=== PATIENT | female | born 1935 ===

== ENCOUNTER 2016-11-17 20:22 | Inpatient (IN) | payer MEDICARE, OTHER ==
[2016-11-17 20:23] VITALS: BMI 23.8
[2016-11-17] MEDS ORDERED: Albuterol-Ipratrop 3 mg / 0.5 (3 ml) UD INH STA (20:51)
[2016-11-17] MEDS ORDERED: Nitroglycerin 2% 1GM UD TOP STA (20:51)
[2016-11-17] MEDS ORDERED: Nitroglycerin 2% 1GM UD ONE ×2 (21:30→23:01)
[2016-11-17] MEDS ORDERED: Albuterol-Ipratrop 3 mg / 0.5 (3 ml) UD ONE (21:31)
--- NOTE | 2016-11-17 21:44 | ED PDOC ---
HPI: SOB/CHF/COPD Time Seen by Provider: 11/17/16 20:49 Chief Complaint (Nursing): Shortness Of Breath Chief Complaint (Provider): Shortness of Breath History Per: Patient History/Exam Limitations: no limitations Onset/Duration Of Symptoms: Days (x3 weeks), Worse Since (onset) Current Symptoms Are (Timing): Still Present Exacerbating Factor(s): Exertion, Laying Flat Associated Symptoms: Ankle/Leg Swelling (b/l), Other (PND; no nausea, vomiting, diarrhea). denies: Fever Additional Complaint(s): Sadie De Jesus is an 81 year old female, with a past medical history inclusive of CAD (s/p CABG), HTN, hypercholesterolemia, CHF, COPD, pneumonia, peripheral edema and type II diabetes, who presents to the ED on 11/17/16, as per the recommendation of her PMD Dr. Lawrence, for the evaluation of worsening shortness of breath that she has experienced over the past 3 weeks. Associated orthopnea, dyspnea on exertion, PND and a nonproductive cough also reported, in addition to some b/l lower extremity swelling. Denies fever, nausea, vomiting or diarrhea. Of note, patient has been medicating with Lasix (BID) and antibiotics under the direction of her PMD without improvement. PMD: [place] Past Medical History Reviewed: Historical Data, Nursing Documentation, Vital Signs Vital Signs: Last Vital Signs Temp 97.9 F 11/18/16 00:46 Pulse 69 11/18/16 00:46 Resp 16 11/18/16 00:46 BP 143/73 11/18/16 00:46 Pulse Ox 91 L 11/18/16 00:55 - Medical History PMH: Anemia, Arthritis, Asthma, Atrial Fibrillation, Bronchitis, CAD (valvular heart disease), Cardia Arrhythmia, CHF, COPD, CVA (recurrent), Dementia, Diabetes (type II), HTN, Hypercholesterolemia, Hyperlipidemia, Parkinson's Disease, Peripheral Edema, Pneumonia, TIA Denies: HIV, Hypothyroidism, Chronic Kidney Disease, Rheumatoid Arthritis - Surgical History Surgical History: Appendectomy, CABG, Carotid Endarterectomy, Cholecystectomy - Family History Family History: States: Unknown Family Hx - Social History Current smoker - smoking cessation education provided: No Alcohol: None Drugs: Denies - Immunization History Hx Tetanus Toxoid Vaccination: No Hx Influenza Vaccination: No Hx Pneumococcal Vaccination: No - Home Medications Home Medications: Ambulatory Orders Medication Instructions Recorded Butalbital/Acetaminophen 1 tab PO Q6 PRN 01/09/16 [Butalbital-Acetaminophn 50-325] Clopidogrel [Plavix] 75 mg PO DAILY 01/09/16 Digoxin [Lanoxin] 0.125 mg PO DAILY 01/09/16 Ipratropium/Albuterol Sulfate 3 ml INH Q8H PRN 01/09/16 [Iprat-Albut 0.5-3(2.5) mg/3 ml] Memantine HCl [Namenda Xr] 14 mg PO DAILY 01/09/16 Omeprazole [Prilosec] 20 mg PO BID 01/09/16 Potassium Chloride [Potassium 10 ml PO DAILY 01/09/16 Chloride Oral Soln] Rivaroxaban [Xarelto] 20 mg PO DAILY 01/09/16 Rosuvastatin Calcium [Crestor] 20 mg PO DAILY 01/09/16 Valsartan [Diovan] 160 mg PO DAILY 01/09/16 Zolpidem [Ambien] 5 mg PO HS 01/09/16 metOLazone [Zaroxolyn] 2.5 mg PO DAILY 01/09/16 Ferrous Sulfate [Feosol] 325 mg PO BID 09/12/16 Fluticasone/Vilanterol [Breo 1 puff IH DAILY 09/12/16 Ellipta 200-25 Mcg INH] Linagliptin [Tradjenta] 5 mg PO DAILY 09/12/16 Multivitamin with Minerals 1 tab PO DAILY 09/12/16 [Bee-Zee] cycloSPORINE [Restasis] 1 drop EACHEYE Q12H 09/12/16 - Allergies Allergies/Adverse Reactions: Allergies Allergy/AdvReac Type Severity Reaction Status Date / Time No Known Allergies Allergy Verified 09/12/16 10:57 Review of Systems ROS Statement: Except As Marked, All Systems Reviewed And Found Negative Constitutional: Negative for: Fever Cardiovascular: Positive for: Edema (b/l LE) Respiratory: Positive for: Cough, Shortness of Breath, SOB with Exertion, Other (orthopnea, PND). Negative for: Sputum Gastrointestinal: Negative for: Nausea, Vomiting, Diarrhea Physical Exam - Reviewed Nursing Documentation Reviewed: Yes Vital Signs Reviewed: Yes - Physical Exam Appears: Positive for: Non-toxic, No Acute Distress Head Exam: Positive for: ATRAUMATIC, NORMOCEPHALIC Skin: Positive for: Normal Color, Warm, Dry Eye Exam: Positive for: Normal appearance, PERRL ENT: Positive for: Normal ENT Inspection Neck: Positive for: Painless ROM. Negative for: Normal (2+ JVD) Cardiovascular/Chest: Positive for: Regular Rate, Rhythm, Edema (2+ pitting edema within b/l LE). Negative for: Murmur Respiratory: Positive for: Crackles (b/l diffuse) Gastrointestinal/Abdominal: Positive for: Normal Exam, Soft. Negative for: Tenderness Back: Positive for: Normal Inspection Extremity: Positive for: Normal ROM Neurologic/Psych: Positive for: Alert, Oriented - Laboratory Results Result Diagrams: 11/17/16 22:55 11/17/16 22:55 - ECG O2 Sat by Pulse Oximetry: 91 - Critical Care Total Time (In Min): 30 Medical Decision Making Medical Decision Makin:49 Initial Impression: 81 year old female with acute CHF exacerbation Initial Plan: * EKG * CXR * Labs * Lactic Acid, Plasma * Troponin I * PTT * PT * Influenza A B * Blood Culture * Solu-Medrol 125mg IV * Lasix 40mg IV * Nitro 1in TOP * Duonebs 3ml INH * Peak Flow Pre/Post Treatment * Reevaluation 21:[address] Lawrence, who has requested that the patient be admitted to Telemetry as a full inpatient under his service as opposed to observation. Plan has been discussed with patient, who is in agreement. Condition fair. Chest Xray B/L PVC and CM Labs reviewed no clinically sig abnormality with exception of elevated proBNP Clinical Impression: acute CHF exacerbation Scribe Attestation: Documented by Caro Medina, acting as a scribe for Nikhil Camacho MD. Provider Scribe Attestation: All medical record entries made by the Scribe were at my direction and personally dictated by me. I have reviewed the chart and agree that the record accurately reflects my personal performance of the history, physical exam, medical decision making, and the department course for this patient. I have also personally directed, reviewed, and agree with the discharge instructions and disposition. Disposition - Clinical Impression Clinical Impression: CHF (congestive heart failure) - Patient ED Disposition Is Patient to be Admitted: Yes Discussed With DrSantos: Juan A Lawrence - Disposition Disposition Time: 21:03 Condition: FAIR - Pt Status Changed To: Hospital Disposition Of: Inpatient - Admit Certification Admit to Inpatient:: After my assessment, the patient will require hospitalization for at least two midnights. This is because of the severity of symptoms shown, intensity of services needed, and/or the medical risk in this patient being treated as an outpatient.
[2016-11-17 23:19] LABS: BASO # 0.1 K/uL (0.0-0.2); BASO % 0.6 % (0.0-2.0); EOS # 0.1 K/uL (0.0-0.7); HEMATOCRIT 28.6 % (34.0-47.0); LYMPH # 1.9 K/uL (1.0-4.3); LYMPH % 18.8 % (20.0-40.0); MEAN CELL VOLUME 91.7 fl (81.0-99.0); MEAN CORPUSCULAR HEMOGLOBIN 29.1 pg (27.0-31.0); MEAN CORPUSCULAR HGB CONC 31.7 g/dL (33.0-37.0); MEAN PLATELET VOLUME 9.5 fl (7.2-11.7); MONO # 0.6 K/uL (0.0-0.8); MONO % 6.4 % (0.0-10.0); NEUT # 7.3 K/uL (1.8-7.0); NEUT % 73.2 % (50.0-75.0); RED CELL DISTRIBUTION WIDTH 16.9 % (11.5-14.5)
[2016-11-17 23:29] LABS: ALB/GLOB RATIO 1.1 (1.0-2.1); BILIRUBIN,TOTAL 0.2 mg/dl (0.2-1.3); CALCIUM 9.6 mg/dL (8.4-10.2); POTASSIUM 3.4 MMOL/L (3.6-5.0); TOTAL PROTEIN 6.5 G/DL (6.3-8.2)
[2016-11-17 23:34] LABS: PARTIAL THROMBOPLASTIN TIME 27.2 SECONDS (23.3-32.5)
[2016-11-17 23:39] LABS: TROPONIN I 0.039 ng/mL (0.00-0.120)
[2016-11-18] MEDS ORDERED: Nitroglycerin 2% 1GM UD TOP STA (00:19)
[2016-11-18] MEDS ORDERED: Albuterol-Ipratrop 3 mg / 0.5 (3 ml) UD INH PRN (07:46)
[2016-11-18] MEDS ORDERED: Digoxin 125 mcg (0.125 mg) Tab PO SCH (09:00)
--- NOTE | 2016-11-18 09:14 | RAD ---
HISTORY: chf COMPARISON: 09/12/2016 FINDINGS: LUNGS: There is interval increase in vascular congestion from prior study with mild prominence of the interstitial markings. PLEURA: Small pleural effusions are suspected. CARDIOVASCULAR: Heart is enlarged. There is evidence of prior median sternotomy. Mild vascular congestion is noted. OSSEOUS STRUCTURES: No significant abnormalities. VISUALIZED UPPER ABDOMEN: Normal. OTHER FINDINGS: None. IMPRESSION: Cardiomegaly and mild vascular congestion/CHF. Small effusions.
[2016-11-18] MEDS: Potassium Chloride 10 mEq ER Tab PO SCH (09:32)
--- NOTE | 2016-11-18 13:44 | CP.PCM.CON ---
History of Present Illness - History of Present Illness History of Present Illness: I was asked to see patient by Dr. Lawrence. Patient is a 81 year old female with a PMH HTN, CAD s/p CABG bioprosthetic MVR, paroxysmal atrial fibrillation who presents with progressive dyspnea. The patient has had previous admissions for atrial fibrillation with rapid ventricular response, and was noted to have progressive dyspnea. She has palpitations and with rapid heart rate. The patient denies syncope. Echocardiogram from January 2016 reveals normal left ventricular function, bioprosthetic MVR. Review of Systems - Constitutional Constitutional: absent: As Per HPI, Anorexia, Chills, Daytime Sleepiness, Excessive Sweating, Fatigue, Fever, Frequent Falls, Headache, Increased Appetite , Lethargy, Malaise, Night Sweats, Snoring, Sleep Apnea, Weight Gain, Weight Loss, Weakness, Other - EENT Eyes: absent: As Per HPI, Blind Spots, Blurred Vision, Change in Vision, Decreased Night Vision, Diplopia, Discharge, Dry Eye, Exophthalmos, Floaters, Irritation, Itchy Eyes, Loss of Peripheral Vision, Pain, Photophobia, Requires Corrective Lenses, Sees Flashes, Spots in Vision, Tunnel Vision, Other Visual Disturbances, Loss of Vision, Other Ears: absent: As Per HPI, Decreased Hearing, Ear Discharge, Ear Pain, Tinnitus, Abnormal Hearing, Disequilibrium, Dizziness, Other Nose/Mouth/Throat: absent: As Per HPI, Epistaxis, Nasal Congestion, Nasal Discharge, Nasal Obstruction, Nasal Trauma, Nose Pain, Post Nasal Drip, Sinus Pain, Sinus Pressure, Bleeding Gums, Change in Voice, Dental Pain, Dry Mouth, Dysphagia, Halitosis, Hoarsness, Lip Swelling, Mouth Lesions, Mouth Pain, Odynophagia, Sore Throat, Throat Swelling, Tongue Swelling, Facial Pain, Neck Pain, Neck Mass, Other - Breasts Breasts: absent: As Per HPI, Change in Shape, Mass, Pain, Nipple Discharge, Nipple Inversion, Skin Changes, Swelling, Other - Cardiovascular Cardiovascular: Dyspnea, Palpitations - Respiratory Respiratory: Dyspnea - Gastrointestinal Gastrointestinal: absent: As Per HPI, Abdominal Pain, Belching, Bloating, Change in Bowel Habits, Change in Stool Character, Coffee Ground Emesis, Constipation, Cramping, Diarrhea, Dyspepsia, Dysphagia, Early Satiety, Excessive Flatus, Fecal Incontinence, Heartburn, Hematemesis, Hematochezia, Loose Stools, Melena, Nausea, Odynophagia, Temesmus, Vomiting, Other - Genitourinary Genitourinary: absent: As Per HPI, Change in Urinary Stream, Difficulty Urinating, Dysuria, Flank Pain, Hematuria, Pyuria, Nocturia, Urinary Incontinence, Urinary Frequency, Urinary Hesitance, Urinary Urgency, Voiding Freq/Small Amts, Freq UTI, Hx Renal/Bladder Calculi, Hx /Renal Surgery, Bladder Distension, Other - Integumentary Integumentary: absent: As Per HPI, Acne, Alopecia, Bleeding Lesions, Change in Hair, Change in Nails, Change in Pigmentation, Changing Lesions, Dry Skin, Erythema, Furuncle, Hirsutism, Lesions, New Lesions, Non-Healing Lesions, Photosensitivity, Pruritus, Rash, Skin Pain, Skin Ulcer, Sores, Striae, Swelling , Unusual Bruising, Wounds, Jaundice, Other - Neurological Neurological: absent: As Per HPI, Abnormal Gait, Abnormal Hearing, Abnormal Movements, Abnormal Speech, Behavioral Changes, Burning Sensations, Confusion, Convulsions, Disequilibrium, Dizziness, Numbness, Focal Weakness, Frequent Falls , Headaches, Lack of Coordination, Loss of Vision, Memory Loss, Paresthesias, Radicular Pain, Restless Legs, Sensory Deficit, Syncope, Tingling, Tremor, Vertigo, Weakness, Other Visual Disturbances, Other - Psychiatric Psychiatric: absent: As Per HPI, Abnormal Sleep Pattern, Anhedonia, Anxiety, Auditory Hallucinations, Behavioral Changes, Change in Appetite, Change in Libido, Confusion, Depression, Difficulty Concentrating, Hallucinations, Homicidal Ideation, Hopelessness, Irritability, Memory Loss, Mood Swings, Panic Attacks, Paranoia, Suicidal Ideation, Visual Hallucinations, Tactile Hallucinations, Other - Endocrine Endocrine: absent: As Per HPI, Change in Body Appearance, Change in Libido, Cold Intolorance, Deepening of Voice, Excessive Sweating, Fatigue, Flushing, Heat Intolorance, Increase in Ring/Shoe/Hat Size, Palpitations, Polydipsia, Polyphagia, Polyuria, Other Past Patient History - Infectious Disease Hx of Infectious Diseases: None - Tetanus Immunizations Tetanus Immunization: Unknown - Past Medical History & Family History Past Medical History?: Yes - Past Social History Smoking Status: Former Smoker - CARDIAC Hx Atrial Fibrillation: Yes Hx Cardia Arrhythmia: Yes Hx Congestive Heart Failure: Yes Hx Hypercholesterolemia: Yes Hx Hypertension: Yes Hx Peripheral Edema: Yes - PULMONARY Hx Asthma: Yes Hx Bronchitis: Yes Hx Chronic Obstructive Pulmonary Disease (COPD): Yes Hx Pneumonia: Yes - NEUROLOGICAL Hx Dementia: Yes Hx Parkinson's Disease: Yes Hx Transient Ischemic Attacks (TIA): Yes - HEENT Hx HEENT Problems: No - RENAL Hx Chronic Kidney Disease: No - ENDOCRINE/METABOLIC Hx Hypothyroidism: No - HEMATOLOGICAL/ONCOLOGICAL Hx Anemia: Yes Hx Human Immunodeficiency Virus (HIV): No - INTEGUMENTARY Hx Dermatological Problems: No - MUSCULOSKELETAL/RHEUMATOLOGICAL Hx Falls: Yes - GASTROINTESTINAL Hx Gastrointestinal Disorders: No - GENITOURINARY/GYNECOLOGICAL Hx Genitourinary Disorders: No - PSYCHIATRIC Hx Substance Use: No - SURGICAL HISTORY Hx Appendectomy: Yes Hx Carotid Endarterectomy: Yes Hx Cholecystectomy: Yes Hx Coronary Artery Bypass Graft: Yes - ANESTHESIA Hx Anesthesia: Yes Hx Anesthesia Reactions: No Hx Malignant Hyperthermia: No Meds Allergies/Adverse Reactions: Allergies Allergy/AdvReac Type Severity Reaction Status Date / Time No Known Allergies Allergy Verified 09/12/16 10:57 - Medications Medications: Current Medications Albuterol/Ipratropium (Duoneb 3 Mg/0.5 Mg (3 Ml) Ud) 3 ml INH RQID PRN PRN Reason: Shortness of Breath Atorvastatin Calcium (Lipitor) 40 mg PO [facility] Clopidogrel Bisulfate (Plavix) 75 mg PO DAILY [facility] Last Admin: 11/18/16 09:32 Dose: 75 mg Digoxin (Lanoxin) 0.125 mg PO DAILY [facility] Last Admin: 11/18/16 09:29 Dose: Not Given Ferrous Sulfate (Feosol) 325 mg PO DAILY [facility] Last Admin: 11/18/16 09:32 Dose: 325 mg Furosemide (Lasix) 40 mg IV Q12 [facility] Last Admin: 11/18/16 09:29 Dose: 40 mg Home Med (Memantine Hcl [Namenda Xr]) 14 mg PO DAILY [facility] Home Med (Omeprazole [Prilosec]) 20 mg PO BID [facility] Metolazone (Zaroxolyn) 2.5 mg PO DAILY [facility] Potassium Chloride (Klor-Con 10) 10 meq PO DAILY [facility] Last Admin: 11/18/16 09:32 Dose: 10 meq Rivaroxaban (Xarelto) 15 mg PO DAILY@1700 [facility] PRN Reason: Protocol Sitagliptin Phosphate (Januvia) 25 mg PO DAILY [facility] Last Admin: 11/18/16 10:42 Dose: 25 mg Valsartan (Diovan) 160 mg PO DAILY [facility] Last Admin: 11/18/16 10:41 Dose: 160 mg Zolpidem Tartrate (Ambien) 5 mg PO [facility] Physical Exam - Constitutional Appears: Non-toxic - Head Exam Head Exam: NORMAL INSPECTION - Eye Exam Eye Exam: Normal appearance - ENT Exam ENT Exam: Mucous Membranes Moist - Neck Exam Neck exam: Positive for: Full Rom - Respiratory Exam Respiratory Exam: Decreased Breath Sounds - Cardiovascular Exam Cardiovascular Exam: REGULAR RHYTHM - GI/Abdominal Exam GI & Abdominal Exam: Normal Bowel Sounds - Rectal Exam Rectal Exam: Deferred - Extremities Exam Extremities exam: Negative for: pedal edema - Back Exam Back exam: NORMAL INSPECTION - Neurological Exam Neurological exam: Alert, Oriented x3 - Psychiatric Exam Psychiatric exam: Normal Affect - Skin Skin Exam: Normal Color Results - Vital Signs Recent Vital Signs: Last Vital Signs Temp 97.6 F 11/18/16 09:20 Pulse 51 L 11/18/16 09:20 Resp 20 11/18/16 09:20 BP 141/62 11/18/16 09:29 Pulse Ox 99 11/18/16 09:20 - Labs Result Diagrams: 11/19/16 05:43 11/19/16 05:43 Labs: Laboratory Results - last 24 hr 11/17/16 11/17/16 11/18/16 22:55 23:59 05:37 WBC 10.0 RBC 3.12 L Hgb 9.1 L Hct 28.6 L MCV 91.7 D MCH 29.1 MCHC 31.7 L RDW 16.9 H Plt Count 230 MPV 9.5 Neut % (Auto) 73.2 Lymph % (Auto) 18.8 L [place] % (Auto) 6.4 Eos % (Auto) 1.0 Baso % (Auto) 0.6 Neut # 7.3 H Lymph # 1.9 [place] # 0.6 Eos # 0.1 Baso # 0.1 PT 12.9 H INR 1.24 H APTT 27.2 Sodium 139 Potassium 3.4 L Chloride 99 Carbon Dioxide 31 H Anion Gap 12 BUN 21 H Creatinine 1.2 Est GFR ( Amer) 52 Est GFR (Non-Af Amer) 43 POC Glucose (mg/dL) 192 H Random Glucose 120 H Lactic Acid 1.4 Calcium 9.6 Total Bilirubin 0.2 AST 52 H D ALT 44 Alkaline Phosphatase 93 Troponin I 0.0390 NT-Pro-B Natriuret Pep 4720 H Total Protein 6.5 Albumin 3.4 L Globulin 3.1 Albumin/Globulin Ratio 1.1 Influenza Typ A,B (EIA) Negative for flu a/b - EKG Data EKG Interpreted by: Myself EKG shows normal: Sinus rhythm Assessment & Plan (1) CAD (coronary artery disease) Assessment and Plan: no current angina. will continue medical therapy Status: Chronic Priority: Medium (2) HTN (hypertension) Assessment and Plan: blood pressure control Status: Chronic Priority: Medium (3) Paroxysmal a-fib Assessment and Plan: will continue AV fabiana blockers Status: Resolved (4) Hyperlipidemia Assessment and Plan: statin therapy. Status: Acute
[2016-11-18] MEDS: metOLazone 2.5 MG TAB PO SCH (17:33)
[2016-11-18] MEDS ORDERED: Albuterol-Ipratrop 3 mg / 0.5 (3 ml) UD INH STA (18:57)
--- NOTE | 2016-11-18 19:07 | CP.PCM.PN ---
Subjective - Date & Time of Evaluation Date of Evaluation: 11/18/16 Time of Evaluation: 19:00 - Subjective Subjective: Pt referred as having chest tightness and SOB. Objective - Vital Signs/Intake and Output Vital Signs (last 24 hours): Temp Pulse Resp BP Pulse Ox 98.3 F 55 L 20 160/73 H 99 11/18/16 16:42 11/18/16 16:42 11/18/16 16:42 11/18/16 16:42 11/18/16 16:42 - Medications Medications: Current Medications Albuterol/Ipratropium (Duoneb 3 Mg/0.5 Mg (3 Ml) Ud) 3 ml INH RQID PRN PRN Reason: Shortness of Breath Albuterol/Ipratropium (Duoneb 3 Mg/0.5 Mg (3 Ml) Ud) 3 ml INH STAT STA Stop: 11/18/16 18:58 Atorvastatin Calcium (Lipitor) 40 mg PO [facility] Clopidogrel Bisulfate (Plavix) 75 mg PO DAILY [facility] Last Admin: 11/18/16 09:32 Dose: 75 mg Digoxin (Lanoxin) 0.125 mg PO DAILY [facility] Last Admin: 11/18/16 09:29 Dose: Not Given Ferrous Sulfate (Feosol) 325 mg PO DAILY [facility] Last Admin: 11/18/16 09:32 Dose: 325 mg Furosemide (Lasix) 40 mg IV Q12 [facility] Last Admin: 11/18/16 09:29 Dose: 40 mg Home Med (Memantine Hcl [Namenda Xr]) 14 mg PO DAILY [facility] Home Med (Omeprazole [Prilosec]) 20 mg PO BID [facility] Metolazone (Zaroxolyn) 2.5 mg PO DAILY [facility] Last Admin: 11/18/16 17:33 Dose: 2.5 mg Nitroglycerin (Nitrostat Sl Tab) 0.4 mg SL STAT STA Stop: 11/18/16 18:57 Potassium Chloride (Klor-Con 10) 10 meq PO DAILY [facility] Last Admin: 11/18/16 09:32 Dose: 10 meq Rivaroxaban (Xarelto) 15 mg PO DAILY@1700 [facility] PRN Reason: Protocol Last Admin: 11/18/16 17:33 Dose: 15 mg Sitagliptin Phosphate (Januvia) 25 mg PO DAILY [facility] Last Admin: 11/18/16 10:42 Dose: 25 mg Valsartan (Diovan) 160 mg PO DAILY [facility] Last Admin: 11/18/16 10:41 Dose: 160 mg Zolpidem Tartrate (Ambien) 5 mg PO [facility] - Labs Labs: 11/17/16 22:55 11/17/16 22:55 PT 12.9 SECONDS (9.6-11.2) H 11/17/16 22:55 INR 1.24 (0.92-1.08) H 11/17/16 22:55 APTT 27.2 SECONDS (23.3-32.5) 11/17/16 22:55 - Respiratory Exam Respiratory Exam: Prolonged Expiratory Phase, Wheezes, Respiratory Distress ( mild to moderate respiratory distress which improved although not completely after being seen ) - Cardiovascular Exam Cardiovascular Exam: REGULAR RHYTHM, +S1, +S2 Assessment and Plan (1) CHF (congestive heart failure) Status: Acute (2) COPD exacerbation Status: Acute - Assessment and Plan (Free Text) Assessment: NTG SL stat Duoneb by nebulizer EKG
[2016-11-19] MEDS ORDERED: Metoprolol 1 mg/ml Inj IVP ONE (04:01)
[2016-11-19 05:47] LABS: HEMATOCRIT 28.5 % (34.0-47.0); MEAN CELL VOLUME 92.2 fl (81.0-99.0); MEAN CORPUSCULAR HEMOGLOBIN 28.4 pg (27.0-31.0); MEAN CORPUSCULAR HGB CONC 30.8 g/dL (33.0-37.0); RED CELL DISTRIBUTION WIDTH 17.3 % (11.5-14.5); WHITE BLOOD COUNT 14.5 K/uL (4.8-10.8)
[2016-11-19] MEDS ORDERED: Nitroglycerin 2% 1GM UD ONE (05:49)
--- NOTE | 2016-11-19 05:51 | PCM.RRTMUL ---
MANAGER OUTPATIENT Nurse Assessment - Ventilator Settings Peak Flow:: 60 - Vital Signs Blood Pressure:: 110/77 Pulse Rate:: 144 Summary - Summary of Event Summary of Event: S: MANAGER OUTPATIENT called for HR > 140 and chest pain/palpitations O: HR 146 CVS: irregularly irregular, tachycardia Lungs-crackles EKG Afib with RVR A: -81yo F with PMHx CHF and Afib admitted for CHF exacerbation with paroxysmal Afib with RVR -HR 140s, BP 95/64 -Recieved lopressor 5mg IV x1 and started on on cardizem drip 5mg/hr with EKG -earlier chest pain improved with NTG SL -EKG and CXR reviewed P: -cardizem 5mg IV x1 -cardizem drip increased from 5mg/hr to 15mg/hr -nitro bid 0.5in x1 -lasix 40mg IV x1 -Digoxin 0.25mg IV x1 -recheck BP 113/66 -Dr. Jean notified -may consider amiodarone if HR not improved
[2016-11-19] MEDS ORDERED: Nitroglycerin 2% 1GM UD TOP ONE (05:55)
[2016-11-19 06:01] LABS: BILIRUBIN,TOTAL 0.3 mg/dl (0.2-1.3); MAGNESIUM 1.7 MG/DL (1.6-2.3); POTASSIUM 3.1 MMOL/L (3.6-5.0)
[2016-11-19] MEDS ORDERED: Digoxin 500 mcg/2ml (0.5 mg/2ml) Inj IVP ONE (06:05)
[2016-11-19 06:12] LABS: TROPONIN I 0.024 ng/mL (0.00-0.120)
[2016-11-19 06:13] VITALS: PULSE 140
[2016-11-19 06:14] LABS: ALB/GLOB RATIO 1.1 (1.0-2.1)
[2016-11-19] MEDS: Albuterol-Ipratrop 3 mg / 0.5 (3 ml) UD INH SCH ×3 (07:30→16:22)
[2016-11-19] MEDS ORDERED: Levalbuterol 0.63 MG/3 ML Inhal Soln UD INH SCH (09:00)
--- NOTE | 2016-11-19 09:13 | CP.PCM.PN ---
Subjective - Date & Time of Evaluation Date of Evaluation: 11/19/16 Time of Evaluation: 09:00 - Subjective Subjective: patient developed atrial fibrillation with rapid ventricular response. She was started on cardizem, however requires further therapy. Objective - Vital Signs/Intake and Output Vital Signs (last 24 hours): Temp Pulse Resp BP Pulse Ox 97.9 F 145 H 28 H 110/70 100 11/19/16 04:56 11/19/16 06:38 11/19/16 05:52 11/19/16 06:38 11/19/16 04:56 - Medications Medications: Current Medications Albuterol/Ipratropium (Duoneb 3 Mg/0.5 Mg (3 Ml) Ud) 3 ml INH RQID [facility] Atorvastatin Calcium (Lipitor) 40 mg PO HS [facility] Last Admin: 11/18/16 21:34 Dose: 40 mg Clopidogrel Bisulfate (Plavix) 75 mg PO DAILY [facility] Last Admin: 11/18/16 09:32 Dose: 75 mg Digoxin (Lanoxin) 0.125 mg PO DAILY [facility] Last Admin: 11/18/16 09:29 Dose: Not Given Ferrous Sulfate (Feosol) 325 mg PO DAILY [facility] Last Admin: 11/18/16 09:32 Dose: 325 mg Furosemide (Lasix) 40 mg IV Q12 [facility] Last Admin: 11/18/16 21:34 Dose: 40 mg Home Med (Memantine Hcl [Namenda Xr]) 14 mg PO DAILY [facility] Home Med (Omeprazole [Prilosec]) 20 mg PO BID [facility] Diltiazem HCl 125 mg/ Sodium (Chloride) 125 mls @ 15 mls/hr IV .Q8H20M ONE; 15 MG/HR PRN Reason: Protocol Stop: 11/19/16 14:33 Last Admin: 11/19/16 06:38 Dose: 15 mls/hr Metolazone (Zaroxolyn) 2.5 mg PO DAILY [facility] Last Admin: 11/18/16 17:33 Dose: 2.5 mg Potassium Chloride (Klor-Con 10) 10 meq PO DAILY [facility] Last Admin: 11/18/16 09:32 Dose: 10 meq Rivaroxaban (Xarelto) 15 mg PO DAILY@1700 [facility] PRN Reason: Protocol Last Admin: 11/18/16 17:33 Dose: 15 mg Sitagliptin Phosphate (Januvia) 25 mg PO DAILY [facility] Last Admin: 11/18/16 10:42 Dose: 25 mg Valsartan (Diovan) 160 mg PO DAILY [facility] Last Admin: 11/18/16 10:41 Dose: 160 mg Zolpidem Tartrate (Ambien) 5 mg PO HS [facility] Last Admin: 11/18/16 21:40 Dose: 5 mg - Labs Labs: 11/19/16 05:43 11/19/16 05:43 PT 12.9 SECONDS (9.6-11.2) H 11/17/16 22:55 INR 1.24 (0.92-1.08) H 11/17/16 22:55 APTT 27.2 SECONDS (23.3-32.5) 11/17/16 22:55 - Constitutional Appears: Non-toxic - Head Exam Head Exam: NORMAL INSPECTION - Eye Exam Eye Exam: Normal appearance - ENT Exam ENT Exam: Mucous Membranes Moist - Neck Exam Neck Exam: Full ROM - Respiratory Exam Respiratory Exam: Decreased Breath Sounds - Cardiovascular Exam Cardiovascular Exam: Tachycardia, Irregular Rhythm - GI/Abdominal Exam GI & Abdominal Exam: Normal Bowel Sounds - Rectal Exam Rectal Exam: Deferred - Extremities Exam Extremities Exam: absent: Pedal Edema - Back Exam Back Exam: NORMAL INSPECTION - Neurological Exam Neurological Exam: Alert - Psychiatric Exam Psychiatric exam: Normal Affect - Skin Skin Exam: Normal Color Assessment and Plan (1) CAD (coronary artery disease) Assessment & Plan: no angina Status: Chronic (2) HTN (hypertension) Assessment & Plan: will control with cardizem Status: Chronic (3) Hyperlipidemia Assessment & Plan: statin therapy. Status: Acute (4) Atrial fibrillation Assessment & Plan: will start amiodarone drip. I discussed with patient at length. She has had periods of bradycardia and has a baseling LBBB. Therefore the patient jarrett likely sinus node dysfunction. The best course of action is likely VN fabiana ablation with PPM implantation. I will discuss with EP. Status: Chronic
[2016-11-19] MEDS: Potassium Chloride 10 mEq ER Tab PO SCH (09:29)
[2016-11-19] MEDS: metOLazone 2.5 MG TAB PO SCH (09:30)
[2016-11-19] MEDS: Levalbuterol 0.63 MG/3 ML Inhal Soln UD INH SCH (20:21)
[2016-11-20] MEDS: Levalbuterol 0.63 MG/3 ML Inhal Soln UD INH SCH ×4 (07:40→19:29)
[2016-11-20] MEDS: Potassium Chloride 10 mEq ER Tab PO SCH (08:35)
[2016-11-20] MEDS: metOLazone 2.5 MG TAB PO SCH (08:36)
--- NOTE | 2016-11-20 09:43 | CARD ---
APPROVED REPORT EKG Measurement Heart [id number] [id number] <Conclusion> Poor data quality, interpretation may be adversely affected Normal sinus rhythm Possible Left atrial enlargement Nonspecific intraventricular block Cannot rule out Anterior infarct, age undetermined Abnormal ECG
--- NOTE | 2016-11-20 10:02 | CARD ---
APPROVED REPORT EKG Measurement Heart [id number] [id number] <Conclusion> Normal sinus rhythm Left bundle branch block Abnormal ECG
--- NOTE | 2016-11-20 11:09 | CP.PCM.HP ---
History of Present Illness - History of Present Illness History of Present Illness: this is an 81 y/o female admitted for increasing SOB and leg edema. She was seen in my office yesterday and was noted to have pitting leg edema up to the knee and was very SOB hence advised Er eval where she was noted to have elevated ProBNP. Past Patient History - Infectious Disease Hx of Infectious Diseases: None - Tetanus Immunizations Tetanus Immunization: Unknown - Past Medical History & Family History Past Medical History?: Yes - Past Social History Smoking Status: Former Smoker - CARDIAC Hx Atrial Fibrillation: Yes Hx Cardia Arrhythmia: Yes Hx Congestive Heart Failure: Yes Hx Hypercholesterolemia: Yes Hx Hypertension: Yes Hx Peripheral Edema: Yes - PULMONARY Hx Asthma: Yes Hx Bronchitis: Yes Hx Chronic Obstructive Pulmonary Disease (COPD): Yes Hx Pneumonia: Yes - NEUROLOGICAL Hx Dementia: Yes Hx Parkinson's Disease: Yes Hx Transient Ischemic Attacks (TIA): Yes - HEENT Hx HEENT Problems: No - RENAL Hx Chronic Kidney Disease: No - ENDOCRINE/METABOLIC Hx Hypothyroidism: No - HEMATOLOGICAL/ONCOLOGICAL Hx Anemia: Yes Hx Human Immunodeficiency Virus (HIV): No - INTEGUMENTARY Hx Dermatological Problems: No - MUSCULOSKELETAL/RHEUMATOLOGICAL Hx Falls: Yes - GASTROINTESTINAL Hx Gastrointestinal Disorders: No - GENITOURINARY/GYNECOLOGICAL Hx Genitourinary Disorders: No - PSYCHIATRIC Hx Substance Use: No - SURGICAL HISTORY Hx Appendectomy: Yes Hx Carotid Endarterectomy: Yes Hx Cholecystectomy: Yes Hx Coronary Artery Bypass Graft: Yes - ANESTHESIA Hx Anesthesia: Yes Hx Anesthesia Reactions: No Hx Malignant Hyperthermia: No Meds Allergies/Adverse Reactions: Allergies Allergy/AdvReac Type Severity Reaction Status Date / Time No Known Allergies Allergy Verified 09/12/16 10:57 Results - Vital Signs Recent Vital Signs: Last Vital Signs Temp 98.3 F 11/20/16 08:00 Pulse 57 L 11/20/16 08:00 Resp 18 11/20/16 08:00 BP 119/51 L 11/20/16 08:00 Pulse Ox 98 11/20/16 08:00 - Labs Result Diagrams: 11/19/16 05:43 11/19/16 05:43
--- NOTE | 2016-11-20 11:10 | CP.PCM.PN ---
Subjective - Date & Time of Evaluation Date of Evaluation: 11/19/16 Time of Evaluation: 10:00 - Subjective Subjective: patient had episodes of rapid atrial fibrillation and bradycardia. Objective - Vital Signs/Intake and Output Vital Signs (last 24 hours): Temp Pulse Resp BP Pulse Ox 98.3 F 57 L 18 119/51 L 98 11/20/16 08:00 11/20/16 08:00 11/20/16 08:00 11/20/16 08:00 11/20/16 08:00 - Medications Medications: Current Medications Atorvastatin Calcium (Lipitor) [address] [facility] Last Admin: 11/19/16 21:48 Dose: 40 mg Clopidogrel Bisulfate (Plavix) 75 mg PO DAILY [facility] Last Admin: 11/20/16 08:35 Dose: 75 mg Digoxin (Lanoxin) 0.125 mg PO DAILY [facility] Last Admin: 11/18/16 09:29 Dose: Not Given Ferrous Sulfate (Feosol) 325 mg PO DAILY [facility] Last Admin: 11/20/16 08:35 Dose: 325 mg Furosemide (Lasix) 40 mg IV Q12 [facility] Last Admin: 11/19/16 21:49 Dose: 40 mg Home Med (Memantine Hcl [Namenda Xr]) 14 mg PO DAILY [facility] Home Med (Omeprazole [Prilosec]) 20 mg PO BID [facility] Levalbuterol HCl (Xopenex) 0.63 mg INH RQID [facility] Last Admin: 11/20/16 07:40 Dose: 0.63 mg Metolazone (Zaroxolyn) 2.5 mg PO DAILY [facility] Last Admin: 11/20/16 08:36 Dose: 2.5 mg Potassium Chloride (Klor-Con 10) 10 meq PO DAILY [facility] Last Admin: 11/20/16 08:35 Dose: 10 meq Rivaroxaban (Xarelto) 15 mg PO DAILY@1700 [facility] PRN Reason: Protocol Last Admin: 11/19/16 16:56 Dose: 15 mg Sitagliptin Phosphate (Januvia) 25 mg PO DAILY [facility] Last Admin: 11/20/16 08:39 Dose: 25 mg Valsartan (Diovan) 160 mg PO DAILY [facility] Last Admin: 11/19/16 09:30 Dose: 160 mg Zolpidem Tartrate (Ambien) [address] [facility] Last Admin: 11/19/16 21:57 Dose: Not Given - Labs Labs: 11/19/16 05:43 11/19/16 05:43 PT 12.9 SECONDS (9.6-11.2) H 11/17/16 22:55 INR 1.24 (0.92-1.08) H 11/17/16 22:55 APTT 27.2 SECONDS (23.3-32.5) 11/17/16 22:55
--- NOTE | 2016-11-20 11:11 | CP.PCM.PN ---
Subjective - Date & Time of Evaluation Date of Evaluation: 11/20/16 Time of Evaluation: 11:10 - Subjective Subjective: patient feels a lot better today Lying flat on bed Noted rapid atrial fibrillation kia after neb treatment. Has no SOB leg edema has resolved. Objective - Vital Signs/Intake and Output Vital Signs (last 24 hours): Temp Pulse Resp BP Pulse Ox 98.3 F 57 L 18 119/51 L 98 11/20/16 08:00 11/20/16 08:00 11/20/16 08:00 11/20/16 08:00 11/20/16 08:00 - Medications Medications: Current Medications Atorvastatin Calcium (Lipitor) 40 mg PO [facility] Last Admin: 11/19/16 21:48 Dose: 40 mg Clopidogrel Bisulfate (Plavix) 75 mg PO DAILY [facility] Last Admin: 11/20/16 08:35 Dose: 75 mg Digoxin (Lanoxin) 0.125 mg PO DAILY [facility] Last Admin: 11/18/16 09:29 Dose: Not Given Ferrous Sulfate (Feosol) 325 mg PO DAILY [facility] Last Admin: 11/20/16 08:35 Dose: 325 mg Furosemide (Lasix) 40 mg IV Q12 [facility] Last Admin: 11/19/16 21:49 Dose: 40 mg Home Med (Memantine Hcl [Namenda Xr]) 14 mg PO DAILY [facility] Home Med (Omeprazole [Prilosec]) 20 mg PO BID [facility] Levalbuterol HCl (Xopenex) 0.63 mg INH RQID [facility] Last Admin: 11/20/16 11:09 Dose: 0.63 mg Metolazone (Zaroxolyn) 2.5 mg PO DAILY [facility] Last Admin: 11/20/16 08:36 Dose: 2.5 mg Potassium Chloride (Klor-Con 10) 10 meq PO DAILY [facility] Last Admin: 11/20/16 08:35 Dose: 10 meq Rivaroxaban (Xarelto) 15 mg PO DAILY@1700 [facility] PRN Reason: Protocol Last Admin: 11/19/16 16:56 Dose: 15 mg Sitagliptin Phosphate (Januvia) 25 mg PO DAILY [facility] Last Admin: 11/20/16 08:39 Dose: 25 mg Valsartan (Diovan) 160 mg PO DAILY [facility] Last Admin: 11/19/16 09:30 Dose: 160 mg Zolpidem Tartrate (Ambien) 5 mg PO [facility] Last Admin: 11/19/16 21:57 Dose: Not Given - Labs Labs: 11/19/16 05:43 11/19/16 05:43 PT 12.9 SECONDS (9.6-11.2) H 11/17/16 22:55 INR 1.24 (0.92-1.08) H 11/17/16 22:55 APTT 27.2 SECONDS (23.3-32.5) 11/17/16 22:55
[2016-11-20] MEDS: Pantoprazole 20 mg EC Tab PO SCH ×2 (12:29→16:07)
--- NOTE | 2016-11-20 18:04 | CP.PCM.PN ---
Subjective - Date & Time of Evaluation Date of Evaluation: 11/20/16 Time of Evaluation: 18:00 - Subjective Subjective: patient has no curent chest pain. denies current chest pain. had afib with RVR yesterday. Objective - Vital Signs/Intake and Output Vital Signs (last 24 hours): Temp Pulse Resp BP Pulse Ox 98.2 F 69 18 113/62 99 11/20/16 15:37 11/20/16 15:37 11/20/16 15:37 11/20/16 15:37 11/20/16 15:37 - Medications Medications: Current Medications Atorvastatin Calcium (Lipitor) 40 mg PO HS [facility] Last Admin: 11/19/16 21:48 Dose: 40 mg Clopidogrel Bisulfate (Plavix) 75 mg PO DAILY [facility] Last Admin: 11/20/16 08:35 Dose: 75 mg Digoxin (Lanoxin) 0.125 mg PO DAILY [facility] Last Admin: 11/18/16 09:29 Dose: Not Given Ferrous Sulfate (Feosol) 325 mg PO DAILY [facility] Last Admin: 11/20/16 08:35 Dose: 325 mg Furosemide (Lasix) 40 mg IV Q12 [facility] Last Admin: 11/20/16 09:00 Dose: 40 mg Home Med (Memantine Hcl [Namenda Xr]) 14 mg PO DAILY [facility] Levalbuterol HCl (Xopenex) 0.63 mg INH RQID [facility] Last Admin: 11/20/16 16:18 Dose: 0.63 mg Metolazone (Zaroxolyn) 2.5 mg PO DAILY [facility] Last Admin: 11/20/16 08:36 Dose: 2.5 mg Pantoprazole Sodium (Protonix Ec Tab) 20 mg PO BID [facility] Last Admin: 11/20/16 16:07 Dose: 20 mg Potassium Chloride (Klor-Con 10) 10 meq PO DAILY [facility] Last Admin: 11/20/16 08:35 Dose: 10 meq Rivaroxaban (Xarelto) 15 mg PO DAILY@1700 [facility] PRN Reason: Protocol Last Admin: 11/20/16 16:07 Dose: 15 mg Sitagliptin Phosphate (Januvia) 25 mg PO DAILY [facility] Last Admin: 11/20/16 08:39 Dose: 25 mg Valsartan (Diovan) 160 mg PO DAILY [facility] Last Admin: 11/20/16 09:00 Dose: 160 mg Zolpidem Tartrate (Ambien) 5 mg PO HS [facility] Last Admin: 11/19/16 21:57 Dose: Not Given - Labs Labs: 11/19/16 05:43 11/19/16 05:43 PT 12.9 SECONDS (9.6-11.2) H 11/17/16 22:55 INR 1.24 (0.92-1.08) H 11/17/16 22:55 APTT 27.2 SECONDS (23.3-32.5) 11/17/16 22:55 - Constitutional Appears: Non-toxic - Head Exam Head Exam: NORMAL INSPECTION - Eye Exam Eye Exam: Normal appearance - ENT Exam ENT Exam: Mucous Membranes Moist - Neck Exam Neck Exam: Full ROM - Respiratory Exam Respiratory Exam: Decreased Breath Sounds - Cardiovascular Exam Cardiovascular Exam: Irregular Rhythm - GI/Abdominal Exam GI & Abdominal Exam: Normal Bowel Sounds - Rectal Exam Rectal Exam: Deferred - Extremities Exam Extremities Exam: Pedal Edema - Back Exam Back Exam: NORMAL INSPECTION - Neurological Exam Neurological Exam: Alert - Psychiatric Exam Psychiatric exam: Normal Affect - Skin Skin Exam: Normal Color Assessment and Plan (1) CAD (coronary artery disease) Assessment & Plan: stable and without angina Status: Chronic (2) HTN (hypertension) Assessment & Plan: controlled Status: Chronic (3) Hyperlipidemia Assessment & Plan: statin therapy Status: Acute (4) Atrial fibrillation Assessment & Plan: will need AV fabiana ablation and PPM implantation for definitive therapy. pateint understands and agrees. Status: Chronic
--- NOTE | 2016-11-20 19:41 | CON ---
DATE: 11/20/2016 REASON FOR EVALUATION: 1. Atrial fibrillation. 2. Hypertension. 3. Coronary artery disease, atherosclerotic heart disease. 4. History of mitral valve replacement. Thank you very much for this consult. HISTORY OF PRESENT ILLNESS: The patient is a very pleasant 81-year-old Cypriot female with past medical history significant for hypertension, coronary artery disease, status post CABG, status post bioprosthetic mitral valve replacement, paroxysmal atrial fibrillation, who presents to [facility] with progressive dyspnea. The patient was admitted and found to have episodes of atrial fibrillation/atrial tachycardia with rapid ventricular response. The patient has had a longstanding history of paroxysmal atrial fibrillation with severe symptoms. The patient's condition was stabilized, initiated on AV fabiana agents. The patient's long-term keyseater operator , Dr. Jason Jean, had asked me to see her in regards to management of atrial fibrillation with rapid ventricular response. Daughter is at the bedside at the time of the evaluation. In terms of atrial fibrillation management, patient has been on AV fabiana blockers. In addition, patient was initiated on and continues to be on Xarelto. She denies any history of syncope or significant bleeding. REVIEW OF SYSTEMS: Denies any fevers, chills. Does complain of fatigue on occasion. Denies any headaches, fevers, chills, change in appetite, night sweats or snoring. No visual disturbances are noted. No neurological issues are noted. No psychosocial stressors. No urinary complaints. No significant bruising or bleeding is noted. No heat or cold intolerance, polydipsia, or polyphagia. The remainder of 16-point review of systems is negative. PAST MEDICAL HISTORY: Significant for atrial fibrillation, congestive heart failure, hypercholesterolemia, hypertension. LABORATORY DATA: The patient has a white count as of yesterday of 14.5, hemoglobin of 8.8 and 28.5, platelets of 238. Potassium is 3.1. Creatinine is 1.2. ALT/AST of 63 and 49 respectively. BNP on presentation, that is on 2016, is 4720. Albumin is 34. EKG from 11/18/2016 shows sinus bradycardia at 62 beats per minute with an underlying left bundle branch block morphology, repolarization abnormalities are noted. QT, QTC is 456 and 462 respectively. Chest x-ray, which was done on 11/18/2016 shows evidence of cardiomegaly, prior median sternotomy wires are present. Mild vascular congestion is noted. On review of telemetry, there are episodes of atrial fibrillation/atrial tachycardia with rapid ventricular response with heart rates up to 150 beats per minute. ASSESSMENT AND PLAN: 1. Atrial fibrillation/Atrial tachycardia with rapid ventricular response with baseline significant resting bradycardia with heart rates in the 50s. At this point, patient is unable to tolerate rate control agents secondary to blood pressure issues which include calcium channel blockers, beta blockers. Heart rate is in atrial fibrillation, difficult to control because of these concerns. I have discussed various options, which include continuing current management versus atrial fibrillation ablation, that is pulmonary vein isolation as well as the option of atrioventricular fabiana ablation with prior permanent pacemaker implantation. The patient's daughter is at the bedside participating in the discussion. At this point, it appears that the patient would likely most benefit from an AV fabiana ablation following a permanent pacemaker implantation. The patient is agreeable. Xarelto has been held. Would hold for at least 2 days prior to proposed elective procedure. Plans will be made for transfer to an outside facility for this procedure. 2. Hypertension which appears to be controlled, relatively speaking at this point. 3. Coronary artery disease, atherosclerotic heart disease, appears to be stable from this standpoint. 4. Status post mitral valve replacement, which appears to be stable. The patient on last echo as per cardiology consultation shows normal left ventricular function. 5. Elevated white blood cell count which will need to be monitored going forward. Look out for signs of any underlying infection. 6. Anemia. We will continue to watch her blood counts. Would transfuse if hemoglobin is greater than 8. 7. Hypokalemia, which should be replaced to a level of around 4.0 prior to elective procedure. Thank you for allowing me to participate in the care of your patient. Please do not hesitate to call for any questions in regards to her care. Redd Armando MD cc: Jason Jean MD [id number] TT: 11/20/2016 19:40:53 Confirmation # [id number] Dictation # [id number] lyssa SAEZ
[2016-11-21 07:25] LABS: HEMATOCRIT 30.8 % (34.0-47.0); MEAN CELL VOLUME 91.6 fl (81.0-99.0); MEAN CORPUSCULAR HEMOGLOBIN 28.7 pg (27.0-31.0); MEAN CORPUSCULAR HGB CONC 31.3 g/dL (33.0-37.0); RED CELL DISTRIBUTION WIDTH 17.2 % (11.5-14.5); WHITE BLOOD COUNT 8.9 K/uL (4.8-10.8)
[2016-11-21] MEDS: Levalbuterol 0.63 MG/3 ML Inhal Soln UD INH SCH ×4 (07:41→19:14)
--- NOTE | 2016-11-21 08:10 | PQF GENQUE ---
Dr. Lawrence, Please specify the type of acute heart failure in your progress notes: TYPE: Combined systolic and diastolic Diastolic Systolic Other (please specify) Unable to determine Unknown Unable to determine Unknown - ER MD: Acute CHF - H and P in draft:admitted for increasing SOB and leg edema. She was seen in my office yesterday and was noted to have pitting leg edema up to the knee and was very SOB hence advised Er eval where she was noted to have elevated ProBNP. 11/19 CUSTOM SHOEMAKER note: 81yo F with PMHx CHF and Afib admitted for CHF exacerbation with paroxysmal Afib with RVR -HR 140s. -attending progress note of 11/20/2016:Has no SOB leg edema has resolved -cardiology note: echocardiogram: from January 2016 reveals normal left ventricular function, bioprosthetic MVR - 11/18 cxr: Impression: Cardiomegaly and mild vascular congestion/CHF. Small effusions - lasix 40 mg IV q 12 This form is a permanent part of the medical record Clarification of your documentation is requested to better reflect the severity of illness and intensity of treatment of your patient. Indicators present [] Specify: [] [] Specify: [] [] Specify: [] [] Specify: [] Location in the medical record that reflects the above clinical findings: [] Treatment Provided: [] PHYSICIAN'S RESPONSE Based on your medical judgment of the clinical indicators outlined above please clarify the following: [] Practitioner response [] If unable to determine, please check the box, sign and date. Present On Admission (POA) Indicator: [] Present at the time of admission [] Not present at the time of admission [] Clinically Undetermined In responding to this query, please exercise your independent professional judgment. The fact that a question is asked does not imply that any particular answer is desired or expected. Thank you for your clarification on this documentation. If you have any questions please call. * Thank you, Naty Kemp RN BSN ext. #[phone] MTDD
[2016-11-21] MEDS: Pantoprazole 20 mg EC Tab PO SCH ×2 (08:50→16:23)
[2016-11-21] MEDS: metOLazone 2.5 MG TAB PO SCH (08:50)
[2016-11-21] MEDS: Potassium Chloride 10 mEq ER Tab PO SCH (08:51)
[2016-11-21] MEDS: MEMANTINE HCL 14 MG PO SCH ×2 (08:51)
[2016-11-21 10:42] LABS: BLOOD UREA NITROGEN 21 mg/dl (7-17); CALCIUM 9.2 mg/dL (8.4-10.2); CARBON DIOXIDE 37 mmol/L (22-30); CHLORIDE 91 mmol/L (98-107); GFR AFRICAN-AMERICAN > 60; GLUCOSE,RANDOM 185 mg/dL (65-105); POTASSIUM 2.9 MMOL/L (3.6-5.0); SODIUM 143 mmol/l (132-148)
--- NOTE | 2016-11-21 11:44 | CP.PCM.PN ---
Subjective - Date & Time of Evaluation Date of Evaluation: 11/21/16 Time of Evaluation: 10:05 - Subjective Subjective: Pt seen and examined at bedside this morning with Dr. Lawrence, pt denies any chest pain, states she feels better, denies any SOB. sitting in bed eating breakfast. No complaints Objective - Vital Signs/Intake and Output Vital Signs (last 24 hours): Temp Pulse Resp BP Pulse Ox 97.3 F L 71 18 116/53 L 93 L 11/21/16 08:00 11/21/16 08:00 11/21/16 08:00 11/21/16 08:49 11/21/16 08:00 - Medications Medications: Current Medications Atorvastatin Calcium (Lipitor) 40 mg PO HS [facility] Last Admin: 11/20/16 21:24 Dose: 40 mg Clopidogrel Bisulfate (Plavix) 75 mg PO DAILY [facility] Last Admin: 11/21/16 08:50 Dose: 75 mg Digoxin (Lanoxin) 0.125 mg PO DAILY [facility] Last Admin: 11/18/16 09:29 Dose: Not Given Ferrous Sulfate (Feosol) 325 mg PO DAILY [facility] Last Admin: 11/21/16 08:50 Dose: 325 mg Furosemide (Lasix) 40 mg IV Q12 [facility] Last Admin: 11/21/16 08:49 Dose: 40 mg Home Med (Memantine Hcl [Namenda Xr]) 14 mg PO DAILY [facility] Last Admin: 11/21/16 08:51 Dose: 14 mg Levalbuterol HCl (Xopenex) 0.63 mg INH RQID [facility] Last Admin: 11/21/16 11:11 Dose: 0.63 mg Metolazone (Zaroxolyn) 2.5 mg PO DAILY [facility] Last Admin: 11/21/16 08:50 Dose: 2.5 mg Pantoprazole Sodium (Protonix Ec Tab) 20 mg PO BID [facility] Last Admin: 11/21/16 08:50 Dose: 20 mg Potassium Chloride (K-Dur 20 Meq Er Tab) 40 meq PO ONCE ONE Stop: 11/21/16 11:46 Sitagliptin Phosphate (Januvia) 25 mg PO DAILY [facility] Last Admin: 11/21/16 08:50 Dose: 25 mg Valsartan (Diovan) 160 mg PO DAILY [facility] Last Admin: 11/21/16 08:50 Dose: 160 mg Zolpidem Tartrate (Ambien) 5 mg PO HS [facility] Last Admin: 11/20/16 21:37 Dose: 5 mg - Labs Labs: 11/21/16 06:10 11/21/16 10:27 PT 12.9 SECONDS (9.6-11.2) H 11/17/16 22:55 INR 1.24 (0.92-1.08) H 11/17/16 22:55 APTT 27.2 SECONDS (23.3-32.5) 11/17/16 22:55 - Constitutional Appears: Non-toxic, No Acute Distress - Head Exam Head Exam: NORMOCEPHALIC - Eye Exam Eye Exam: Normal appearance - ENT Exam ENT Exam: Mucous Membranes Moist - Respiratory Exam Respiratory Exam: Clear to Ausculation Bilateral, NORMAL BREATHING PATTERN. absent: Wheezes - Cardiovascular Exam Cardiovascular Exam: Irregular Rhythm, +S1, +S2 - GI/Abdominal Exam GI & Abdominal Exam: Soft, Normal Bowel Sounds. absent: Tenderness - Extremities Exam Extremities Exam: absent: Calf Tenderness - Neurological Exam Neurological Exam: Awake, CN II-XII Intact Assessment and Plan - Assessment and Plan (Free Text) Assessment: 81 y/o female with significant cardiac medical history admitted for SOB Plan: 1. SOB has resolved, underlying cause multiple issues not necessarily CHF 2. A-fib with RVR plan for AV fabiana ablation and PPM implantion in the AM at [facility] per industrial specialist pt will be NPO at midnight 3. HTN BP controlled on current medication 4. CAD s/p CABG with bioprosthetic MVR Monitor 5. DVT- lovenox Diet NPO at midnight heart healthy now
[2016-11-21] MEDS ORDERED: Potassium Chloride 20 mEq ER Tab PO ONE (11:45)
[2016-11-21 17:37] LABS: BLOOD UREA NITROGEN 23 mg/dl (7-17); CALCIUM 8.9 mg/dL (8.4-10.2); CHLORIDE 91 mmol/L (98-107); GFR AFRICAN-AMERICAN > 60; GLUCOSE,RANDOM 140 mg/dL (65-105); POTASSIUM 3.1 MMOL/L (3.6-5.0); SODIUM 137 mmol/l (132-148)
[2016-11-21 17:43] LABS: CARBON DIOXIDE 40 mmol/L (22-30)
[2016-11-21] MEDS: Potassium Chloride 20 mEq ER Tab PO SCH (18:00)
--- NOTE | 2016-11-21 21:18 | CP.PCM.PN ---
Objective - Vital Signs/Intake and Output Vital Signs (last 24 hours): Temp Pulse Resp BP Pulse Ox 98.7 F 75 18 105/64 99 11/21/16 19:15 11/21/16 20:53 11/21/16 19:15 11/21/16 19:15 11/21/16 19:15 - Medications Medications: Current Medications Atorvastatin Calcium (Lipitor) 40 mg PO HS [facility] Last Admin: 11/20/16 21:24 Dose: 40 mg Clopidogrel Bisulfate (Plavix) 75 mg PO DAILY [facility] Last Admin: 11/21/16 08:50 Dose: 75 mg Digoxin (Lanoxin) 0.125 mg PO DAILY [facility] Last Admin: 11/18/16 09:29 Dose: Not Given Ferrous Sulfate (Feosol) 325 mg PO DAILY [facility] Last Admin: 11/21/16 08:50 Dose: 325 mg Furosemide (Lasix) 40 mg IV Q12 [facility] Last Admin: 11/21/16 08:49 Dose: 40 mg Home Med (Memantine Hcl [Namenda Xr]) 14 mg PO DAILY [facility] Last Admin: 11/21/16 08:51 Dose: 14 mg Levalbuterol HCl (Xopenex) 0.63 mg INH RQID [facility] Last Admin: 11/21/16 19:14 Dose: 0.63 mg Metolazone (Zaroxolyn) 2.5 mg PO DAILY [facility] Last Admin: 11/21/16 08:50 Dose: 2.5 mg Pantoprazole Sodium (Protonix Ec Tab) 20 mg PO BID [facility] Last Admin: 11/21/16 16:23 Dose: 20 mg Potassium Chloride (K-Dur 20 Meq Er Tab) 20 meq PO DAILY [facility] Last Admin: 11/21/16 18:00 Dose: 20 meq Sitagliptin Phosphate (Januvia) 25 mg PO DAILY [facility] Last Admin: 11/21/16 08:50 Dose: 25 mg Valsartan (Diovan) 160 mg PO DAILY [facility] Last Admin: 11/21/16 08:50 Dose: 160 mg Zolpidem Tartrate (Ambien) 5 mg PO HS [facility] Last Admin: 11/20/16 21:37 Dose: 5 mg - Labs Labs: 11/21/16 06:10 11/21/16 16:45 PT 12.9 SECONDS (9.6-11.2) H 11/17/16 22:55 INR 1.24 (0.92-1.08) H 11/17/16 22:55 APTT 27.2 SECONDS (23.3-32.5) 11/17/16 22:55 Assessment and Plan (1) CAD (coronary artery disease) Status: Chronic (2) HTN (hypertension) Status: Chronic (3) Hyperlipidemia Status: Acute (4) Atrial fibrillation Status: Chronic
[2016-11-22 04:43] VITALS: PULSE 71
[2016-11-22] MEDS: Levalbuterol 0.63 MG/3 ML Inhal Soln UD INH SCH (07:22)
[2016-11-22 07:59] VITALS: BP 111/67; RESP 20; TEMP 98.4; O2SAT 96
[2016-11-22] MEDS: Potassium Chloride 20 mEq ER Tab PO SCH (08:29)
[2016-11-22] MEDS: MEMANTINE HCL 14 MG PO SCH (08:29)
[2016-11-22] MEDS: metOLazone 2.5 MG TAB PO SCH (08:29)
[2016-11-22] MEDS: Pantoprazole 20 mg EC Tab PO SCH (08:29)
[2016-11-22] MEDS: Potassium CL 10 MEQ/50 ML 50 ML IVPB SCH ×2 (08:48→10:00)
--- NOTE | 2016-11-22 12:22 | CP.PCM.PN ---
Subjective - Date & Time of Evaluation Date of Evaluation: 11/22/16 Time of Evaluation: 10:55 - Subjective Subjective: Pt seen and examined at bedside, she is aware she is going for a procedure today. she is a little nervous about it but she has been reassured Objective - Vital Signs/Intake and Output Vital Signs (last 24 hours): Temp Pulse Resp BP Pulse Ox 98.4 F 71 20 111/67 96 11/22/16 07:58 11/22/16 07:58 11/22/16 07:58 11/22/16 08:31 11/22/16 07:58 - Medications Medications: Current Medications Atorvastatin Calcium (Lipitor) 40 mg PO HS [facility] Last Admin: 11/21/16 21:32 Dose: 40 mg Clopidogrel Bisulfate (Plavix) 75 mg PO DAILY [facility] Last Admin: 11/22/16 08:29 Dose: Not Given Digoxin (Lanoxin) 0.125 mg PO DAILY [facility] Last Admin: 11/18/16 09:29 Dose: Not Given Ferrous Sulfate (Feosol) 325 mg PO DAILY [facility] Last Admin: 11/22/16 08:28 Dose: Not Given Furosemide (Lasix) 40 mg IV Q12 [facility] Last Admin: 11/22/16 08:31 Dose: 40 mg Home Med (Memantine Hcl [Namenda Xr]) 14 mg PO DAILY [facility] Last Admin: 11/22/16 08:29 Dose: Not Given Levalbuterol HCl (Xopenex) 0.63 mg INH RQID [facility] Last Admin: 11/22/16 07:22 Dose: 0.63 mg Metolazone (Zaroxolyn) 2.5 mg PO DAILY [facility] Last Admin: 11/22/16 08:29 Dose: Not Given Pantoprazole Sodium (Protonix Ec Tab) 20 mg PO BID [facility] Last Admin: 11/22/16 08:29 Dose: Not Given Potassium Chloride (K-Dur 20 Meq Er Tab) 20 meq PO DAILY [facility] Last Admin: 11/22/16 08:29 Dose: Not Given Sitagliptin Phosphate (Januvia) 25 mg PO DAILY [facility] Last Admin: 11/22/16 08:29 Dose: Not Given Valsartan (Diovan) 160 mg PO DAILY [facility] Last Admin: 11/22/16 08:28 Dose: Not Given Zolpidem Tartrate (Ambien) 5 mg PO HS [facility] Last Admin: 11/21/16 22:00 Dose: Not Given - Labs Labs: 11/21/16 06:10 11/22/16 11:42 PT 12.9 SECONDS (9.6-11.2) H 11/17/16 22:55 INR 1.24 (0.92-1.08) H 11/17/16 22:55 APTT 27.2 SECONDS (23.3-32.5) 11/17/16 22:55 - Constitutional Appears: Non-toxic, No Acute Distress - Head Exam Head Exam: NORMOCEPHALIC - Eye Exam Eye Exam: Normal appearance - ENT Exam ENT Exam: Mucous Membranes Moist - Respiratory Exam Respiratory Exam: Clear to Ausculation Bilateral, NORMAL BREATHING PATTERN. absent: Wheezes - Cardiovascular Exam Cardiovascular Exam: REGULAR RHYTHM, +S1, +S2 - GI/Abdominal Exam GI & Abdominal Exam: Soft, Normal Bowel Sounds. absent: Tenderness - Extremities Exam Extremities Exam: absent: Calf Tenderness, Pedal Edema - Neurological Exam Neurological Exam: Alert, Awake Assessment and Plan - Assessment and Plan (Free Text) Assessment: 81 y/o female with significant cardiac medical history admitted for SOB Plan: 1. SOB has resolved, underlying cause multiple issues not necessarily CHF 2. A-fib with RVR plan for AV fabiana ablation and PPM implantation today at [facility] per hamper maker machine 3. HTN BP controlled on current medication 4. CAD s/p CABG with bioprosthetic MVR Monitor 5. DVT- lovenox Diet NPO now for procedure
--- NOTE | 2016-11-23 15:48 | CP.PCM.DIS ---
Provider - Provider Date of Admission: 11/17/16 21:03 Attending physician: Juan A Lawrence MD Primary care physician: Howard Consults: cardiology Time Spent in preparation of Discharge (in minutes): 30 Diagnosis - Discharge Diagnosis (1) Atrial fibrillation Status: Chronic Hospital Course - Lab Results Lab Results: Micro Results 11/17/16 23:10 Blood-Venous Blood Culture - Final NO GROWTH AFTER 5 DAYS 11/17/16 23:10 Blood-Venous Gram Stain - Final TEST NOT PERFORMED 11/17/16 22:55 Blood-Venous Blood Culture - Final NO GROWTH AFTER 5 DAYS 11/17/16 22:55 Blood-Venous Gram Stain - Final TEST NOT PERFORMED Most Recent Lab Values WBC 8.9 K/uL (4.8-10.8) 11/21/16 06:10 RBC 3.36 Mil/uL (3.80-5.20) L 11/21/16 06:10 Hgb 9.6 g/dL (12.0-16.0) L 11/21/16 06:10 Hct 30.8 % (34.0-47.0) L 11/21/16 06:10 MCV 91.6 fl (81.0-99.0) 11/21/16 06:10 MCH 28.7 pg (27.0-31.0) 11/21/16 06:10 MCHC 31.3 g/dL (33.0-37.0) L 11/21/16 06:10 RDW 17.2 % (11.5-14.5) H 11/21/16 06:10 Plt Count 267 K/uL (130-400) 11/21/16 06:10 MPV 9.5 fl (7.2-11.7) 11/17/16 22:55 Neut % (Auto) 73.2 % (50.0-75.0) 11/17/16 22:55 Lymph % (Auto) 18.8 % (20.0-40.0) L 11/17/16 22:55 [place] % (Auto) 6.4 % (0.0-10.0) 11/17/16 22:55 Eos % (Auto) 1.0 % (0.0-4.0) 11/17/16 22:55 Baso % (Auto) 0.6 % (0.0-2.0) 11/17/16 22:55 Neut # 7.3 K/uL (1.8-7.0) H 11/17/16 22:55 Lymph # 1.9 K/uL (1.0-4.3) 11/17/16 22:55 [place] # 0.6 K/uL (0.0-0.8) 11/17/16 22:55 Eos # 0.1 K/uL (0.0-0.7) 11/17/16 22:55 Baso # 0.1 K/uL (0.0-0.2) 11/17/16 22:55 PT 12.9 SECONDS (9.6-11.2) H 11/17/16 22:55 INR 1.24 (0.92-1.08) H 11/17/16 22:55 APTT 27.2 SECONDS (23.3-32.5) 11/17/16 22:55 Sodium 137 mmol/l (132-148) 11/21/16 16:45 Potassium 3.8 MMOL/L (3.6-5.0) 11/22/16 11:42 Chloride 91 mmol/L (98-107) L 11/21/16 16:45 Carbon Dioxide 40 mmol/L (22-30) H* 11/21/16 16:45 Anion Gap 9 (10-20) L 11/21/16 16:45 BUN 23 mg/dl (7-17) H 11/21/16 16:45 Creatinine 1.0 mg/dL (0.7-1.2) 11/21/16 16:45 Est GFR ( Amer) > 60 11/21/16 16:45 Est GFR (Non-Af Amer) 53 11/21/16 16:45 POC Glucose (mg/dL) 172 mg/dL (65-110) H 11/22/16 11:32 Random Glucose 140 mg/dL (65-105) H 11/21/16 16:45 Lactic Acid 1.4 MMOL/L (0.7-2.1) 11/17/16 22:55 Calcium 8.9 mg/dL (8.4-10.2) 11/21/16 16:45 Magnesium 1.7 MG/DL (1.6-2.3) 11/19/16 05:43 Total Bilirubin 0.3 mg/dl (0.2-1.3) 11/19/16 05:43 AST 63 U/L (14-36) H D 11/19/16 05:43 ALT 49 U/L (9-52) 11/19/16 05:43 Alkaline Phosphatase 99 U/L (38-126) 11/19/16 05:43 Troponin I 0.0240 ng/mL (0.00-0.120) 11/19/16 05:43 NT-Pro-B Natriuret Pep 4720 pg/ml (0-900) H 11/17/16 23:59 Total Protein 6.0 G/DL (6.3-8.2) L 11/19/16 05:43 Albumin 3.2 g/dL (3.5-5.0) L 11/19/16 05:43 Globulin 2.8 gm/dL (2.2-3.9) 11/19/16 05:43 Albumin/Globulin Ratio 1.1 (1.0-2.1) 11/19/16 05:43 Influenza Typ A,B (EIA) Negative for flu a/b (NEGATIVE) 11/17/16 22:55 - Hospital Course Hospital Course: pt was admitted for sob, later found to be in A -fib with RVR with associated LBBB and episodes of bradycardia, sob was not necessarily due to CHF. pt was later transferred to [facility] for an ablation and did not return to this hospital. She will follow up with her PCP and coat presser as discussed with her Discharge Exam - Head Exam Head Exam: NORMOCEPHALIC (See exam from 11/22/16) - Eye Exam Eye Exam: Normal appearance Discharge Plan - Follow Up Plan Condition: FAIR Disposition: Trans to Other Acute Care Hosp
== END 2016-11-22 13:37 | disposition short-term general hospital (02) | DRG 292 ==
LOC: H.ER 20:22 → H.ERHOLD 21:03 → H.TEL 11-18 02:40
PROVIDERS: ADMIT Family Medicine; ATTEND Family Medicine
PROC: 3E0F7GC Introduction of Other Therapeutic Substance into Respiratory Tract, Via Natural or Artificial Opening (ICD-10-PCS; principal; 2016-11-18)
DX: I11.0 Hypertensive heart disease with heart failure (principal); J44.1 Chronic obstructive pulmonary disease with (acute) exacerbation; G20 Parkinson's disease; F03.90 Unspecified dementia, unspecified severity, without behavioral disturbance, psychotic disturbance, mood disturbance, and anxiety; I48.0 Paroxysmal atrial fibrillation; E11.9 Type 2 diabetes mellitus without complications; D64.9 Anemia, unspecified; I47.1 Supraventricular tachycardia; I50.9 Heart failure, unspecified; I25.10 Atherosclerotic heart disease of native coronary artery without angina pectoris; E78.5 Hyperlipidemia, unspecified; J45.909 Unspecified asthma, uncomplicated; Z95.1 Presence of aortocoronary bypass graft; E78.00 Pure hypercholesterolemia, unspecified; Z79.01 Long term (current) use of anticoagulants; Z87.01 Personal history of pneumonia (recurrent); Z86.73 Personal history of transient ischemic attack (TIA), and cerebral infarction without residual deficits; E87.6 Hypokalemia; Z95.2 Presence of prosthetic heart valve; Z87.891 Personal history of nicotine dependence

== ENCOUNTER 2016-12-15 15:18 | Emergency (ER) | payer MEDICARE, OTHER ==
[2016-12-15 15:19] VITALS: PULSE 140; BMI 23.8
--- NOTE | 2016-12-15 15:31 | ED PDOC ---
HPI: Abdomen Time Seen by Provider: 12/15/16 15:30 Chief Complaint (Nursing): GI Problem Chief Complaint (Provider): Diarrhea History Per: Patient Additional Complaint(s): This is an 81 y/o female with hx of CVA and hemiplegia and aphasia in the past, CAD ,HTN ,CHF,COPD, and A.fib, who presents to ED for evaluation of generalized weakness an diarrhea x 2 days now. no fever or chills, no nausea or vomiting. PMD: mariana Past Medical History Reviewed: Nursing Documentation, Vital Signs Vital Signs: Last Vital Signs Temp 97.5 F L 12/15/16 15:20 Pulse 69 12/15/16 15:20 Resp 20 12/15/16 15:20 BP 183/88 H 12/15/16 15:20 Pulse Ox 100 12/15/16 19:42 - Medical History PMH: Anemia, Arthritis, Asthma, Atrial Fibrillation, Bronchitis, CAD (valvular heart disease), Cardia Arrhythmia, CHF, COPD, CVA (recurrent), Dementia, Diabetes (type II), HTN, Hypercholesterolemia, Hyperlipidemia, Parkinson's Disease, Peripheral Edema, Pneumonia, TIA Denies: HIV, Hypothyroidism, Chronic Kidney Disease, Rheumatoid Arthritis - Surgical History Surgical History: Appendectomy, CABG, Carotid Endarterectomy, Cholecystectomy - Family History Family History: States: Unknown Family Hx - Living Arrangements Living Arrangements: With Family - Social History Current smoker - smoking cessation education provided: No Alcohol: None Drugs: Denies - Immunization History Hx Tetanus Toxoid Vaccination: No Hx Influenza Vaccination: No Hx Pneumococcal Vaccination: No - Home Medications Home Medications: Ambulatory Orders Medication Instructions Recorded Butalbital/Acetaminophen 1 tab PO Q6 PRN 01/09/16 [Butalbital-Acetaminophn 50-325] Clopidogrel [Plavix] 75 mg PO DAILY 01/09/16 Digoxin [Lanoxin] 125 mcg PO DAILY 01/09/16 Ipratropium/Albuterol Sulfate 3 ml INH Q6H PRN 01/09/16 [Iprat-Albut 0.5-3(2.5) mg/3 ml] Memantine HCl [Namenda Xr] 14 mg PO HS 01/09/16 Omeprazole [Prilosec] 20 mg PO BID 01/09/16 Valsartan [Diovan] 160 mg PO DAILY 05/08/16 Zolpidem [Ambien] 5 mg PO HS 01/09/16 metOLazone [Zaroxolyn] 2.5 mg PO DAILY 01/09/16 Ferrous Sulfate [Feosol] 325 mg PO DAILY 09/12/16 Fluticasone/Vilanterol [Breo 1 puff IH DAILY 09/12/16 Ellipta 200-25 Mcg INH] Linagliptin [Tradjenta] 5 mg PO DAILY 09/12/16 Atorvastatin [Lipitor] 40 mg PO HS 12/15/16 Furosemide [Lasix] 20 mg PO DAILY 12/15/16 Gabapentin [Neurontin] 300 mg PO HS 12/15/16 Mv,Min #10/FA/D3/Alip Acid/Lut 1 tab PO DAILY 12/15/16 [Strovite One Caplet] Potassium Chloride [K-Dur 20 mEq 20 meq PO DAILY 12/15/16 ER Tab] Rivaroxaban [Xarelto] 15 mg PO DAILY 12/15/16 - Allergies Allergies/Adverse Reactions: Allergies Allergy/AdvReac Type Severity Reaction Status Date / Time No Known Allergies Allergy Verified 09/12/16 10:57 Review of Systems ROS Statement: Except As Marked, All Systems Reviewed And Found Negative Gastrointestinal: Positive for: Diarrhea Physical Exam - Reviewed Nursing Documentation Reviewed: Yes Vital Signs Reviewed: Yes - Physical Exam Appears: Positive for: Well, Non-toxic, No Acute Distress Head Exam: Positive for: ATRAUMATIC, NORMAL INSPECTION, NORMOCEPHALIC Skin: Positive for: Normal Color, Warm, DRY Eye Exam: Positive for: EOMI, Normal appearance, PERRL ENT: Positive for: Normal ENT Inspection Neck: Positive for: Normal, Painless ROM Cardiovascular/Chest: Positive for: Regular Rate, Rhythm Respiratory: Positive for: CNT, Normal Breath Sounds Gastrointestinal/Abdominal: Positive for: Normal Exam, Bowel Sounds, Soft Back: Positive for: Normal Inspection Extremity: Positive for: Normal ROM Neurologic/Psych: Positive for: Alert, Oriented - Laboratory Results Result Diagrams: 12/15/16 16:40 12/15/16 16:40 - ECG O2 Sat by Pulse Oximetry: 100 Medical Decision Making Medical Decision Making: CBC and COMP resulted WNL CT scan pending, Pt tolerating PO in re-eval at 19:45 case endorsed to JOSE Castañeda at 20:00 pending diagnostic review and re-eval Disposition - Clinical Impression Clinical Impression: Diarrhea - Disposition Disposition: Transfer of Care (Castañeda) Disposition Time: 19:57 Condition: STABLE - POA Present On Arrival: None
[2016-12-15] MEDS ORDERED: Iohexol 240 (50 ml) PO ONE (16:01)
[2016-12-15 17:24] LABS: ALKALINE PHOSPHATASE 88 U/L (38-126); ALT/SGPT 17 U/L (9-52); AMYLASE 152 U/L (30-110); AST/SGOT 78 U/L (14-36); BILIRUBIN,TOTAL 1.2 mg/dl (0.2-1.3); BLOOD UREA NITROGEN 13 mg/dl (7-17); CALCIUM 9.5 mg/dL (8.4-10.2); CARBON DIOXIDE 28 mmol/L (22-30); CHLORIDE 102 mmol/L (98-107); GFR AFRICAN-AMERICAN > 60; GLUCOSE,RANDOM 104 mg/dL (65-105); LIPASE 221 U/L (23-300); POTASSIUM 4.7 MMOL/L (3.6-5.0); SODIUM 143 mmol/l (132-148); TOTAL PROTEIN 7.7 G/DL (6.3-8.2)
--- NOTE | 2016-12-15 17:25 | RAD ---
PROCEDURE: CHEST RADIOGRAPH, 1 VIEW HISTORY: med screening COMPARISON: 11/18/2016. FINDINGS: LUNGS: Interval improvement pulmonary vascular congestion. No focal, discrete infiltrates. PLEURA: No pneumothorax or pleural fluid seen. CARDIOVASCULAR: Cardiomegaly. No evidence of acute, significant cardiovascular disease. Position/ configuration of pacemaker Satisfactory. OSSEOUS STRUCTURES: No significant abnormalities. VISUALIZED UPPER ABDOMEN: Normal. OTHER FINDINGS: None. IMPRESSION: Improving pulmonary vascular congestion.
[2016-12-15 17:30] LABS: BASO % 0.4 % (0.0-2.0); EOS # 0.2 K/uL (0.0-0.7); EOS % 1.8 % (0.0-4.0); HEMATOCRIT 31.6 % (34.0-47.0); LYMPH # 2.4 K/uL (1.0-4.3); LYMPH % 28.2 % (20.0-40.0); MEAN CELL VOLUME 90.4 fl (81.0-99.0); MEAN CORPUSCULAR HEMOGLOBIN 28.5 pg (27.0-31.0); MEAN CORPUSCULAR HGB CONC 31.6 g/dL (33.0-37.0); MEAN PLATELET VOLUME 10.5 fl (7.2-11.7); MONO # 0.7 K/uL (0.0-0.8); MONO % 8.7 % (0.0-10.0); NEUT # 5.2 K/uL (1.8-7.0); NEUT % 60.9 % (50.0-75.0); NRBC % 0.3 % (0.0-0.0); WHITE BLOOD COUNT 8.5 K/uL (4.8-10.8)
[2016-12-15] MEDS ORDERED: Iohexol 240 (50 ml) ONE (17:35)
[2016-12-15 18:22] LABS: PARTIAL THROMBOPLASTIN TIME 31.1 SECONDS (23.3-32.5)
[2016-12-15 19:30] LABS: RBC URINE < 1 /hpf (0-3); URINE BACTERIA RARE (<OCC); URINE BILIRUBIN NEGATIVE (NEGATIVE); URINE BLOOD NEGATIVE (NEGATIVE); URINE COLOR COLORLESS (YELLOW); URINE GLUCOSE (UA) NEG (Normal); URINE KETONE NEGATIVE (NEGATIVE); URINE LEUKOCYTE ESTERASE NEG Leu/uL (Negative); URINE PROTEIN NEGATIVE (NEGATIVE); URINE UROBILINOGEN 0.2-1.0 mg/dL (0.2-1.0); WBC URINE 1 /hpf (0-5)
[2016-12-15] MEDS ORDERED: Sodium Chloride 0.9% 50 ML IV ONE (20:23)
[2016-12-15] MEDS ORDERED: Iohexol 300 100 ML IJ ONE (20:23)
--- NOTE | 2016-12-15 21:22 | ED PDOC ---
- Laboratory Results Result Diagrams: 12/15/16 16:40 12/15/16 16:40 - ECG O2 Sat by Pulse Oximetry: 100 - Progress ED Course And Treament: CT ABD/PELVIS : ABDOMEN and PELVIS: INTRAPERITONEAL SPACE: No evidence of free intraperitoneal air or fluid. BONES/JOINTS: Bony structures appear demineralized. Compression fracture seen involving the T10 vertebra, a new finding compared to the previous exam. This is associated with sclerosis, and is compatible with a subacute compression fracture. Stable appearance of multiple additional chronic vertebral compression fractures. SOFT TISSUES: No acute abnormality of the visualized soft tissues is seen. VASCULATURE: No evidence of abdominal aortic aneurysm. No evidence of periaortic hemorrhage. LYMPH NODES: No evidence of diffuse lymphadenopathy. IMPRESSION: - Very small right pleural effusion. - Otherwise, no evidence of significant acute process. No acute intra-abdominal abnormality identified. - 5 cm right ovarian cystic lesion. See recommendations above. - Subacute compression fracture involving the T10 vertebra. - See above for remaining findings. No Thank you for allowing us to participate in the care of your patient. Dictated and Authenticated by: Joann Godwin MD D/W DR. PARRY. WILL D/C WITH ZOFRAN ODT Disposition - Clinical Impression Clinical Impression: Diarrhea - POA Present On Arrival: None - Disposition Disposition: Routine/Home Disposition Time: 22:51 Condition: STABLE Prescriptions: Ondansetron ODT [Zofran ODT] 4 mg PO Q8 PRN #5 odt PRN Reason: Nausea/Vomiting Instructions: Acute Diarrhea (ED), Acute Nausea and Vomiting (ED) Print Language: WELSH
--- NOTE | 2016-12-15 21:48 | CT ---
EXAM: CT Abdomen and Pelvis With Intravenous Contrast CLINICAL HISTORY: 81 years old, female; Pain; Abdominal pain; Additional info: Pain and hematochezia TECHNIQUE: Axial computed tomography images of the abdomen and pelvis with intravenous contrast. This CT exam was performed using one or more of the following dose reduction techniques: automated exposure control, adjustment of the mA and/or kV according to patient size, and/or use of iterative reconstruction technique. Coronal and sagittal reformatted images were created and reviewed. CONTRAST: 75 mL of [id number] administered intravenously. EXAM DATE/TIME: 12/15/2016 4:04 PM COMPARISON: Prior CT abdomen and pelvis with no of 11/28/2015 12:40:38 PM FINDINGS: LOWER THORAX: Heart appears mildly enlarged. Very small right pleural effusion. ABDOMEN: LIVER: Fatty infiltration of the liver. GALLBLADDER AND BILE DUCTS: No CT evidence of acute cholecystitis. No evidence of significant biliary ductal dilatation. PANCREAS: No CT evidence of acute pancreatitis. SPLEEN: No acute abnormality of the spleen identified. ADRENALS: No acute abnormality of the adrenal glands identified. KIDNEYS AND URETERS: Small, nonobstructing left renal stone. Incidental fluid density right renal lesion, measuring less than 10 mm. No further followup imaging is recommended for incidental lesions of this size, unless otherwise clinically indicated. No acute abnormality of the kidneys identified. STOMACH AND BOWEL: No acute abnormality of the colon identified. No evidence of diffuse colitis/pancolitis. No evidence of diverticulitis. No acute abnormality of the stomach or duodenum identified. No evidence of small bowel obstruction. APPENDIX: Normal appendix is not seen, however, there are no significant inflammatory changes visualized in the expected location of the appendix to suggest appendicitis. Recommend clinical correlation. PELVIS: BLADDER: No acute abnormality of the bladder identified. REPRODUCTIVE: 5 x 2.5 cm oval-shaped cystic mass in the right pelvis, most likely representing a right ovarian/adnexal cystic lesion. This appears mildly enlarged compared to the prior exam. It overall has a benign appearance by CT. Followup pelvic ultrasound is recommended for better evaluation of this lesion, not necessarily on an emergent basis. No acute abnormality of the uterus identified. ABDOMEN and PELVIS: INTRAPERITONEAL SPACE: No evidence of free intraperitoneal air or fluid. BONES/JOINTS: Bony structures appear demineralized. Compression fracture seen involving the T10 vertebra, a new finding compared to the previous exam. This is associated with sclerosis, and is compatible with a subacute compression fracture. Stable appearance of multiple additional chronic vertebral compression fractures. SOFT TISSUES: No acute abnormality of the visualized soft tissues is seen. VASCULATURE: No evidence of abdominal aortic aneurysm. No evidence of periaortic hemorrhage. LYMPH NODES: No evidence of diffuse lymphadenopathy. IMPRESSION: - Very small right pleural effusion. - Otherwise, no evidence of significant acute process. No acute intra-abdominal abnormality identified. - 5 cm right ovarian cystic lesion. See recommendations above. - Subacute compression fracture involving the T10 vertebra. - See above for remaining findings. No
[2016-12-15 23:39] VITALS: BP 175/95; PULSE 72; RESP 17; TEMP 98.8
--- NOTE | 2016-12-16 19:21 | CARD ---
APPROVED REPORT EKG Measurement Heart [id number] IL 200P4 [id number] <Conclusion> Atrial-sensed ventricular-paced rhythm Abnormal ECG
[2016-12-19 23:52] VITALS: O2SAT 100
== END 2016-12-16 00:26 | disposition home or self-care (01) ==
LOC: H.ER 15:18
DX: R53.1 Weakness (principal); R19.7 Diarrhea, unspecified; Z79.01 Long term (current) use of anticoagulants; Z86.73 Personal history of transient ischemic attack (TIA), and cerebral infarction without residual deficits; Z95.1 Presence of aortocoronary bypass graft; E11.9 Type 2 diabetes mellitus without complications; E78.00 Pure hypercholesterolemia, unspecified; F03.90 Unspecified dementia, unspecified severity, without behavioral disturbance, psychotic disturbance, mood disturbance, and anxiety; G20 Parkinson's disease; I10 Essential (primary) hypertension; I25.10 Atherosclerotic heart disease of native coronary artery without angina pectoris; J44.9 Chronic obstructive pulmonary disease, unspecified
CPT/HCPCS: 71010; 74177; 80053; 81003; 82150; 82948; 83690; 84484; 85025; 85610; 85730; 93005; 99284; Q9966; Q9967

== ENCOUNTER 2017-02-01 14:59 | Emergency (ER) | payer MEDICARE, OTHER ==
[2017-02-01 14:59] VITALS: PULSE 140; BMI 23.8
[2017-02-01 15:08] VITALS: BP 141/78; PULSE 78; RESP 16; TEMP 98.9; O2SAT 98
--- NOTE | 2017-02-01 15:34 | ED PDOC ---
HPI: Back Time Seen by Provider: 02/01/17 15:17 Chief Complaint (Nursing): Back Pain Chief Complaint (Provider): Back Pain History Per: Patient Additional Complaint(s): 81 yo female, Presents to evaluation of lower back pain. Pt went to sit on the couch and missed, falling onto the floor on her butt. Pt was able to get up on her own and walk; however, Pt's daughter notes that she keeps complaining of pain which is what prompted ED visit. no analgesics taken thus far. Past Medical History Reviewed: Historical Data, Nursing Documentation, Vital Signs Vital Signs: Last Vital Signs Temp 98.9 F 02/01/17 15:07 Pulse 78 02/01/17 15:07 Resp 16 02/01/17 15:07 BP 141/78 02/01/17 15:07 Pulse Ox 98 02/01/17 15:07 - Medical History PMH: Anemia, Arthritis, Asthma, Atrial Fibrillation, Bronchitis, CAD (valvular heart disease), Cardia Arrhythmia, CHF, COPD, CVA (recurrent), Dementia, Diabetes (type II), HTN, Hypercholesterolemia, Hyperlipidemia, Parkinson's Disease, Peripheral Edema, Pneumonia, TIA Denies: HIV, Hypothyroidism, Chronic Kidney Disease, Rheumatoid Arthritis - Surgical History Surgical History: Appendectomy, CABG, Carotid Endarterectomy, Cholecystectomy - Family History Family History: States: Unknown Family Hx - Living Arrangements Living Arrangements: With Family - Social History Current smoker - smoking cessation education provided: No Alcohol: None Drugs: Denies - Immunization History Hx Tetanus Toxoid Vaccination: No Hx Influenza Vaccination: No Hx Pneumococcal Vaccination: No - Home Medications Home Medications: Ambulatory Orders Medication Instructions Recorded Butalbital/Acetaminophen 1 tab PO Q6 PRN 01/09/16 [Butalbital-Acetaminophn 50-325] Clopidogrel [Plavix] 75 mg PO DAILY 01/09/16 Digoxin [Lanoxin] 125 mcg PO DAILY 01/09/16 Ipratropium/Albuterol Sulfate 3 ml INH Q6H PRN 01/09/16 [Iprat-Albut 0.5-3(2.5) mg/3 ml] Memantine HCl [Namenda Xr] 14 mg PO HS 01/09/16 Omeprazole [Prilosec] 20 mg PO BID 01/09/16 Valsartan [Diovan] 160 mg PO DAILY 01/09/16 Zolpidem [Ambien] 5 mg PO HS 01/09/16 metOLazone [Zaroxolyn] 2.5 mg PO DAILY 01/09/16 Ferrous Sulfate [Feosol] 325 mg PO DAILY 09/12/16 Fluticasone/Vilanterol [Breo 1 puff IH DAILY 09/12/16 Ellipta 200-25 Mcg INH] Linagliptin [Tradjenta] 5 mg PO DAILY 09/12/16 Atorvastatin [Lipitor] 40 mg PO HS 12/15/16 Furosemide [Lasix] 20 mg PO DAILY 12/15/16 Gabapentin [Neurontin] 300 mg PO HS 12/15/16 Mv,Min10/Folic Acid/D3/Ala/Lut 1 tab PO DAILY 12/15/16 [Strovite One Caplet] Ondansetron ODT [Zofran ODT] 4 mg PO Q8 PRN #5 odt 12/15/16 Potassium Chloride [K-Dur 20 mEq 20 meq PO DAILY 12/15/16 ER Tab] Rivaroxaban [Xarelto] 15 mg PO DAILY 12/15/16 Ibuprofen [Motrin] 600 mg PO Q6 #20 tab 02/01/17 - Allergies Allergies/Adverse Reactions: Allergies Allergy/AdvReac Type Severity Reaction Status Date / Time No Known Allergies Allergy Verified 02/01/17 15:07 Review of Systems ROS Statement: Except As Marked, All Systems Reviewed And Found Negative Musculoskeletal: Positive for: Back Pain Physical Exam - Reviewed Nursing Documentation Reviewed: Yes Vital Signs Reviewed: Yes - Physical Exam Appears: Positive for: Well, Non-toxic, No Acute Distress Head Exam: Positive for: ATRAUMATIC, NORMAL INSPECTION, NORMOCEPHALIC Skin: Positive for: Normal Color, Warm, DRY Eye Exam: Positive for: EOMI, Normal appearance, PERRL ENT: Positive for: Normal ENT Inspection Neck: Positive for: Normal, Painless ROM Cardiovascular/Chest: Positive for: Regular Rate, Rhythm Respiratory: Positive for: CNT, Normal Breath Sounds Gastrointestinal/Abdominal: Positive for: Normal Exam, Bowel Sounds, Soft Back: Positive for: Normal Inspection, Other (LS paraspinal tenderness, no ecchymosis or edema). Negative for: Vertebral Tenderness Extremity: Positive for: Normal ROM Neurologic/Psych: Positive for: Alert, Oriented - ECG O2 Sat by Pulse Oximetry: 98 Medical Decision Making Medical Decision Making: Pt medicated with Motrin PO and doing well on re-eval, reports feeling improved. Pt ambulated with restroom with steady gait Sacrum: IMPRESSION: Study is limited the due tube significant diffuse demineralization with poor delineation of the cortices of the lower sacrum and coccyx as above. . No definitive evidence of acute displaced fracture however if symptoms persist or occult fracture suspected clinically recommend followup CT scan of the sacrum coccyx. LS Spine: IMPRESSION: There are age-indeterminate anterior wedge of fractures of the T10 at L2 segments. Consider followup CT scan if acute fracture suspected clinically. . 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 Pt and daughter educated on results and demonstrated full understanding based on re-eval, CT scan not clinically indicated at this time Disposition - Clinical Impression Clinical Impression: Low back pain, Contusion - Patient ED Disposition Is Patient to be Admitted: No - Disposition Disposition: Routine/Home Disposition Time: 19:06 Condition: STABLE Prescriptions: Ibuprofen [Motrin] 600 mg PO Q6 #20 tab Instructions: Acute Low Back Pain (ED), Contusion in Adults (ED) Print Language: LITHUANIAN - POA Present On Arrival: None
--- NOTE | 2017-02-01 17:37 | RAD ---
PROCEDURE: Sacrum dated the 02/01/2017. S 1st HISTORY: fall COMPARISON: Comparison made with concurrent radiographs of the lumbar spine. Comparison also made with CT scan abdomen pelvis 12/15/2016 which imaged the sacrum and coccyx in 3 planes. TECHNIQUE: AP and lateral views of the sacrum/coccyx performed. FINDINGS: The current study is limited due to diffuse demineralization rib that results in poor delineation of the cortical margins of the lower sacrum and coccyx particularly on the frontal projections and less so in the lateral projection. No definitive evidence of sacral or coccygeal fracture seen. If symptoms persist or occult fracture suspected clinically recommend followup CT scan of the sacrum/coccyx. Note made of what appears represent 2 small metallic clips overlying the inferior aspect right pubic ramus IMPRESSION: Study is limited the due tube significant diffuse demineralization with poor delineation of the cortices of the lower sacrum and coccyx as above. . No definitive evidence of acute displaced fracture however if symptoms persist or occult fracture suspected clinically recommend followup CT scan of the sacrum coccyx.
--- NOTE | 2017-02-01 17:57 | RAD ---
PROCEDURE: Lumbar spine dated 02/01/2017. Three standard views of the lumbar spine performed. HISTORY: Status post fall. COMPARISON: Correlation made with concurrent radiographs of the sacrum as well as CT scan abdomen pelvis 12/15/2016. Comparison also made with radiographs of lumbar spine 09/12/2016. FINDINGS: BONES: Multilevel chronic appearing endplate deformities of the lumbar as well as on lower thoracic spine. There are anterior wedge compression fracture T10 segment which is age-indeterminate. There is also a anterior wedge deformities of the L2 segment also age indeterminate. Chronic appearing anterior wedge deformity T11 and L1 segments. DISC SPACES: Unremarkable. OTHER FINDINGS: None. IMPRESSION: There are age-indeterminate anterior wedge of fractures of the T10 at L2 segments. Consider followup CT scan if acute fracture suspected clinically. . 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
== END 2017-02-01 18:40 | disposition home or self-care (01) ==
LOC: H.ER 14:59
DX: M54.9 Dorsalgia, unspecified (principal); W19.XXXA Unspecified fall, initial encounter; Y92.008 Other place in unspecified non-institutional (private) residence as the place of occurrence of the external cause

== ENCOUNTER 2017-02-14 20:42 | Inpatient (IN) | payer MEDICARE, OTHER ==
[2017-02-14 20:42] VITALS: BMI 23.8
[2017-02-14] MEDS ORDERED: Albuterol-Ipratrop 3 mg / 0.5 (3 ml) UD INH STA (21:59)
[2017-02-14 22:05] LABS: BASO # 0.1 K/uL (0.0-0.2); BASO % 0.5 % (0.0-2.0); EOS # 0.1 K/uL (0.0-0.7); EOS % 0.7 % (0.0-4.0); HEMATOCRIT 31.5 % (34.0-47.0); LYMPH # 2.1 K/uL (1.0-4.3); LYMPH % 16.6 % (20.0-40.0); MEAN CELL VOLUME 88.9 fl (81.0-99.0); MEAN CORPUSCULAR HEMOGLOBIN 28.5 pg (27.0-31.0); MEAN CORPUSCULAR HGB CONC 32.1 g/dL (33.0-37.0); MONO # 0.9 K/uL (0.0-0.8); MONO % 7.4 % (0.0-10.0); NEUT # 9.3 K/uL (1.8-7.0); NEUT % 74.8 % (50.0-75.0); RED CELL DISTRIBUTION WIDTH 15.6 % (11.5-14.5); WHITE BLOOD COUNT 12.4 K/uL (4.8-10.8)
[2017-02-14 22:13] LABS: BLOOD UREA NITROGEN 29 mg/dl (7-17); CALCIUM 9.9 mg/dL (8.4-10.2); CARBON DIOXIDE 37 mmol/L (22-30); CHLORIDE 95 mmol/L (98-107); GFR AFRICAN-AMERICAN > 60; GLUCOSE,RANDOM 127 mg/dL (65-105); POTASSIUM 3.2 MMOL/L (3.6-5.0); SODIUM 141 mmol/l (132-148)
[2017-02-14] MEDS ORDERED: Albuterol-Ipratrop 3 mg / 0.5 (3 ml) UD ONE (22:20)
[2017-02-14] MEDS ORDERED: levoFLOXacin 500 mg in D5W 500 MG/100 ML BAG IVPB ONE (22:21)
[2017-02-14] MEDS ORDERED: Potassium Chloride 20 mEq ER Tab PO ONE (22:58)
--- NOTE | 2017-02-15 00:17 | ED PDOC ---
HPI: Chest Pain Time Seen by Provider: 02/14/17 20:58 Chief Complaint (Nursing): Chest Pain Chief Complaint (Provider): chest pain History Per: Patient History/Exam Limitations: no limitations Onset/Duration Of Symptoms: Days (2 weeks ) Current Symptoms Are (Timing): Still Present Additional Complaint(s): 81yo female with PMHx including COPD, CHF, CABG presents to the ED with c/o chest pain, difficulty breathing, and cough x 2 weeks worse today. Patient also reports b/l leg swelling and was sent to ED by Dr. Lawrence for eval. Past Medical History Reviewed: Historical Data, Nursing Documentation, Vital Signs Vital Signs: Last Vital Signs Temp 98.2 F 02/16/17 20:00 Pulse 72 02/16/17 20:00 Resp 18 02/16/17 20:00 BP 125/49 L 02/16/17 20:00 Pulse Ox 100 02/16/17 20:00 - Medical History PMH: Anemia, Arthritis, Asthma, Atrial Fibrillation, Bronchitis, CAD (valvular heart disease), Cardia Arrhythmia, CHF, COPD, CVA (recurrent), Dementia, Diabetes (type II), HTN, Hypercholesterolemia, Hyperlipidemia, Parkinson's Disease, Peripheral Edema, Pneumonia, TIA Denies: HIV, Hypothyroidism, Chronic Kidney Disease, Rheumatoid Arthritis - Surgical History Surgical History: Appendectomy, CABG, Carotid Endarterectomy, Cholecystectomy - Family History Family History: States: No Known Family Hx - Immunization History Hx Tetanus Toxoid Vaccination: No Hx Influenza Vaccination: No Hx Pneumococcal Vaccination: No - Home Medications Home Medications: Ambulatory Orders Medication Instructions Recorded Ferrous Sulfate [Feosol] 325 mg PO DAILY 09/12/16 Fluticasone/Vilanterol [Breo 1 puff IH DAILY 09/12/16 Ellipta 200-25 Mcg INH] Linagliptin [Tradjenta] 5 mg PO DAILY 09/12/16 Atorvastatin [Lipitor] 40 mg PO HS 12/15/16 Furosemide [Lasix] 20 mg PO BID 12/15/16 Gabapentin [Neurontin] 300 mg PO HS 12/15/16 Mv,Min10/Folic Acid/D3/Ala/Lut 1 tab PO DAILY 12/15/16 [Strovite One Caplet] Potassium Chloride [K-Dur 20 mEq 20 meq PO DAILY 12/15/16 ER Tab] Rivaroxaban [Xarelto] 15 mg PO DAILY 12/15/16 Ibuprofen [Motrin] 600 mg PO Q6 #20 tab 02/01/17 Albuterol/Ipratropium [Duoneb 3 3 ml IH Q6H PRN 02/16/17 mg/0.5 mg (3 ml) UD] Clopidogrel [Plavix] 75 mg PO DAILY 02/16/17 Digoxin [Lanoxin] 0.125 mg PO DAILY 02/16/17 Memantine HCl [Namenda Xr] 14 mg PO DAILY 02/16/17 Omeprazole [Omeprazole] 20 mg PO DAILY 02/16/17 Valsartan [Diovan] 160 mg PO DAILY 02/16/17 Zolpidem [Ambien] 5 mg PO HS 02/16/17 metOLazone [Zaroxolyn] 2.5 mg PO DAILY 02/16/17 - Allergies Allergies/Adverse Reactions: Allergies Allergy/AdvReac Type Severity Reaction Status Date / Time No Known Allergies Allergy Verified 02/15/17 00:37 Review of Systems ROS Statement: Except As Marked, All Systems Reviewed And Found Negative Cardiovascular: Positive for: Chest Pain, Edema (b/l leg swelling ) Respiratory: Positive for: Cough, Shortness of Breath Physical Exam - Reviewed Nursing Documentation Reviewed: Yes Vital Signs Reviewed: Yes - Physical Exam Appears: Positive for: Well, No Acute Distress Head Exam: Positive for: ATRAUMATIC, NORMAL INSPECTION, NORMOCEPHALIC Skin: Positive for: Normal Color, Warm, Dry Eye Exam: Positive for: Normal appearance, EOMI, PERRL ENT: Positive for: Normal ENT Inspection Neck: Positive for: Normal, Painless ROM, Supple Cardiovascular/Chest: Positive for: Regular Rate, Rhythm. Negative for: Murmur , Tachycardia Respiratory: Positive for: Wheezing (b/l mild wheezing ). Negative for: Respiratory Distress Gastrointestinal/Abdominal: Positive for: Normal Exam, Soft. Negative for: Tenderness Back: Positive for: Normal Inspection. Negative for: L CVA Tenderness, R CVA Tenderness Extremity: Positive for: Normal ROM, Swelling (BLE swelling with pitting edema ) . Negative for: Tenderness, Deformity Neurologic/Psych: Positive for: Alert, Oriented - Laboratory Results Result Diagrams: 02/16/17 05:15 02/16/17 05:15 - ECG O2 Sat by Pulse Oximetry: 94 Medical Decision Making Medical Decision Makin: Impression: COPD exacerbation and possible CHF exacerbation; r/o ACS vs. pneumonia Plan: Labs EKG CXR duoneb 3ml INH, k-dur 20 meq PO, lasix 40mg IVP, levaquin 500mg IVPB, solu- medrol 125mg IVP reassess 8: Patient will be admitted for COPD and CHF exacerbation. Scribe Attestation: Documented by Mildred Hernandez acting as a scribe for Pablo Pelletier MD. Provider Scribe Attestation: All medical record entries made by the Scribe were at my direction and personally dictated by me. I have reviewed the chart and agree that the record accurately reflects my personal performance of the history, physical exam, medical decision making, and the department course for this patient. I have also personally directed, reviewed, and agree with the discharge instructions and disposition. Disposition - Clinical Impression Clinical Impression: COPD exacerbation, CHF exacerbation - Patient ED Disposition Is Patient to be Admitted: Yes Discussed With : Juan A Lawrence Doctor Will See Patient In The: Hospital Counseled Patient/Family Regarding: Studies Performed, Diagnosis - Disposition Disposition Time: 23:08 Condition: FAIR - Pt Status Changed To: Hospital Disposition Of: Inpatient - Admit Certification Admit to Inpatient:: After my assessment, the patient will require hospitalization for at least two midnights. This is because of the severity of symptoms shown, intensity of services needed, and/or the medical risk in this patient being treated as an outpatient. - POA Present On Arrival: None
[2017-02-15] MEDS ORDERED: Potassium Chloride 20 mEq ER Tab PO ONE (00:27)
[2017-02-15] MEDS: Albuterol-Ipratrop 3 mg / 0.5 (3 ml) UD INH SCH ×4 (07:47→19:12)
[2017-02-15 08:27] LABS: CHLORIDE 94 mmol/L (98-107); POTASSIUM 3.3 MMOL/L (3.6-5.0); SODIUM 142 mmol/l (132-148)
[2017-02-15 08:30] LABS: BLOOD UREA NITROGEN 27 mg/dl (7-17); CARBON DIOXIDE 35 mmol/L (22-30); GFR AFRICAN-AMERICAN > 60; GLUCOSE,RANDOM 176 mg/dL (65-105)
[2017-02-15 08:31] LABS: CALCIUM 9.6 mg/dL (8.4-10.2)
[2017-02-15] MEDS: Fluticasone-Salmeterol 250-50mcg Diskus IH SCH ×2 (08:42→21:45)
[2017-02-15] MEDS: Multivitamin With Minerals Tab PO SCH (08:44)
[2017-02-15] MEDS: Potassium Chloride 20 mEq ER Tab PO SCH (08:45)
[2017-02-15] MEDS ORDERED: Patient's Own Med (Mv,Min10/Folic Acid/D3/Ala/Lut [Strovite One Caplet] 1 TAB) PO SCH (09:00)
[2017-02-15] MEDS ORDERED: Patient's Own Med (Fluticasone/Vilanterol [Breo Ellipta 200-25 Mcg Inh] 1 PUFF) IH SCH (09:00)
[2017-02-15] MEDS: methylPREDNISolone 60 MG in Sodium Chloride 0.9% 50 ML IV SCH ×2 (10:48→16:32)
--- NOTE | 2017-02-15 13:08 | CP.PCM.HP ---
<Alfonso Parham - Last Filed: 02/15/17 14:45> History of Present Illness - History of Present Illness History of Present Illness: 81 yo F with PMHx CHF, CAD (CABG), afib, asthma, COPD, CVA/TIA, HLD, T2DM, HLD, Parkinson's, dementia admitted for COPD and CHF exacerbation. Patient had been having chest pain, difficulty breathing, and cough x 2 weeks that worsened at PMD office. PMD sent patient to ED for further evaluation and management. Patient denies fever, chills, uncompliant with medications, medication changes, headache, nausea, vomiting, dizziness, or urinary symptoms. Also has swelling of legs. Patient seen and evaluated with attending. Patient has improved symptoms since last night. No acute events overnight. Tolerating PO well. No fever, chills. SOB improved. Present on Admission - Present on Admission Any Indicators Present on Admission: No Review of Systems - Review of Systems All systems: reviewed and no additional remarkable complaints except (mentioned in HPI) Past Patient History - Infectious Disease Hx of Infectious Diseases: None - Tetanus Immunizations Tetanus Immunization: Unknown - Past Medical History & Family History Past Medical History?: Yes - Past Social History Smoking Status: Former Smoker - CARDIAC Hx Cardiac Disorders: Yes Hx Atrial Fibrillation: Yes Hx Cardia Arrhythmia: Yes Hx Congestive Heart Failure: Yes Hx Hypercholesterolemia: Yes Hx Hypertension: Yes Hx Peripheral Edema: Yes - PULMONARY Hx Respiratory Disorders: Yes Hx Asthma: Yes Hx Bronchitis: Yes Hx Chronic Obstructive Pulmonary Disease (COPD): Yes Hx Pneumonia: Yes - NEUROLOGICAL Hx Neurological Disorder: Yes Hx Dementia: Yes Hx Parkinson's Disease: Yes Hx Transient Ischemic Attacks (TIA): Yes - HEENT Hx HEENT Problems: No - RENAL Hx Chronic Kidney Disease: No - ENDOCRINE/METABOLIC Hx Endocrine Disorders: Yes Hx Diabetes Mellitus Type 2: Yes - HEMATOLOGICAL/ONCOLOGICAL Hx Blood Disorders: Yes Hx Anemia: Yes Hx Human Immunodeficiency Virus (HIV): No - INTEGUMENTARY Hx Dermatological Problems: No - MUSCULOSKELETAL/RHEUMATOLOGICAL Hx Musculoskeletal Disorders: Yes Hx Arthritis: Yes Hx Falls: Yes Hx Rheumatoid Arthritis: No - GASTROINTESTINAL Hx Gastrointestinal Disorders: No - GENITOURINARY/GYNECOLOGICAL Hx Genitourinary Disorders: No - PSYCHIATRIC Hx Psychophysiologic Disorder: No Hx Substance Use: No - SURGICAL HISTORY Hx Surgeries: Yes Hx Appendectomy: Yes Hx Carotid Endarterectomy: Yes Hx Cholecystectomy: Yes Hx Coronary Artery Bypass Graft: Yes - ANESTHESIA Hx Anesthesia: Yes Hx Anesthesia Reactions: No Hx Malignant Hyperthermia: No Has any member of the family had a problem w/ anesthesia?: No Meds Allergies/Adverse Reactions: Allergies Allergy/AdvReac Type Severity Reaction Status Date / Time No Known Allergies Allergy Verified 02/15/17 00:37 Physical Exam - Constitutional Appears: Non-toxic, No Acute Distress - Head Exam Head Exam: ATRAUMATIC, NORMAL INSPECTION, NORMOCEPHALIC - Eye Exam Eye Exam: Normal appearance - Respiratory Exam Respiratory Exam: Wheezes (throughout), NORMAL BREATHING PATTERN - Cardiovascular Exam Cardiovascular Exam: REGULAR RHYTHM, +S1, +S2 - GI/Abdominal Exam GI & Abdominal Exam: Normal Bowel Sounds, Soft. absent: Tenderness - Extremities Exam Extremities exam: Positive for: pedal edema (b/l) - Neurological Exam Neurological exam: Alert, Oriented x3 - Psychiatric Exam Psychiatric exam: Normal Affect, Normal Mood - Skin Skin Exam: Dry, Intact, Normal Color, Warm Results - Vital Signs Recent Vital Signs: Last Vital Signs Temp 97.5 F L 02/15/17 12:19 Pulse 74 02/15/17 12:19 Resp 20 02/15/17 12:19 BP 121/63 02/15/17 12:19 Pulse Ox 99 02/15/17 12:19 - Labs Result Diagrams: 02/14/17 21:50 02/15/17 07:46 Labs: Laboratory Results - last 24 hr 02/15/17 02/15/17 02/15/17 05:11 07:29 07:46 Sodium 142 Potassium 3.3 L Chloride 94 L Carbon Dioxide 35 H Anion Gap 16 BUN 27 H Creatinine 0.9 Est GFR ( Amer) > 60 Est GFR (Non-Af Amer) 60 POC Glucose (mg/dL) 208 H Random Glucose 176 H Calcium 9.6 Troponin I 0.0430 02/15/17 11:16 Sodium Potassium Chloride Carbon Dioxide Anion Gap BUN Creatinine Est GFR ( Amer) Est GFR (Non-Af Amer) POC Glucose (mg/dL) 183 H Random Glucose Calcium Troponin I Assessment & Plan (1) CHF exacerbation Assessment and Plan: Elevated BNP, bilateral LE edema Lasix 40 IV daily Improving still present Trop x 2 neg, 3rd pending Continue to monitor Cardiology consulted, Dr Jean, appreciate recommendations c/w home meds Status: Acute (2) COPD exacerbation Assessment and Plan: Continues to have bilateral wheezing Vitals stable Duonebs scheduled Solumedrol 60 BID Continue to monitor c/w home meds Status: Acute Priority: Low (3) Hypokalemia Assessment and Plan: 3.3 today supplement as needed Status: Acute <Juan A Lawrence - Last Filed: 02/16/17 20:06> Results - Vital Signs Recent Vital Signs: Last Vital Signs Temp 98.3 F 02/16/17 17:00 Pulse 62 02/16/17 17:00 Resp 18 02/16/17 17:00 BP 123/57 L 02/16/17 17:00 Pulse Ox 97 02/16/17 17:00 - Labs Result Diagrams: 02/16/17 05:15 02/16/17 05:15 Labs: Laboratory Results - last 24 hr 02/15/17 02/16/17 02/16/17 21:15 05:15 05:15 WBC 10.5 RBC 3.27 L Hgb 9.5 L Hct 29.0 L MCV 88.9 MCH 29.0 MCHC 32.6 L RDW 16.1 H Plt Count 194 Sodium 139 Potassium 3.4 L Chloride 93 L Carbon Dioxide 33 H Anion Gap 16 BUN 44 H Creatinine 1.4 H Est GFR ( Amer) 44 Est GFR (Non-Af Amer) 36 POC Glucose (mg/dL) 311 H Random Glucose 142 H Calcium 9.0 Total Bilirubin 0.3 AST 40 H D ALT 32 Alkaline Phosphatase 88 Total Protein 6.9 Albumin 4.0 Globulin 2.9 Albumin/Globulin Ratio 1.4 02/16/17 02/16/17 02/16/17 05:22 11:22 15:43 WBC RBC Hgb Hct MCV MCH MCHC RDW Plt Count Sodium Potassium Chloride Carbon Dioxide Anion Gap BUN Creatinine Est GFR ( Amer) Est GFR (Non-Af Amer) POC Glucose (mg/dL) 148 H 130 H 189 H Random Glucose Calcium Total Bilirubin AST ALT Alkaline Phosphatase Total Protein Albumin Globulin Albumin/Globulin Ratio Assessment & Plan - Assessment and Plan (Free Text) Plan: i was present during evaluation and discussed with Dr Parham re plans of care and treatment, juan a Lawrence M.D.
--- NOTE | 2017-02-15 13:22 | CARD ---
APPROVED REPORT EKG Measurement Heart [id number] <Conclusion> Normal sinus rhythm Left axis deviation Right bundle branch block T wave abnormality, consider lateral ischemia Abnormal ECG excessive motion artefact to read correctly-please repeat
--- NOTE | 2017-02-15 14:49 | RAD ---
HISTORY: chest pain COMPARISON: Comparison chest 12/15/2016 . Comparison also made with prior CT scan chest 09/13/2016. FINDINGS: LUNGS: Mild bibasilar atelectasis and or scarring changes. . Questionable small left-sided effusion and/or pleural thickening. Vague radiopaque opacity in the right paratracheal region most likely represents ectasia of the great vessels. PLEURA: No significant pleural effusion identified, no pneumothorax apparent. CARDIOVASCULAR: Re- demonstrated are sternotomy wires, CABG clips, prostatic valve and bipolar pacemaker unchanged. , heart remains borderline/mildly enlarged. OSSEOUS STRUCTURES: No significant abnormalities. VISUALIZED UPPER ABDOMEN: Normal. OTHER FINDINGS: None. IMPRESSION: Mild bibasilar atelectasis and/or scarring changes. Questionable small left-sided effusion and/or pleural thickening.
--- NOTE | 2017-02-16 06:36 | CP.PCM.CON ---
History of Present Illness - History of Present Illness History of Present Illness: I was asked to see patient by mariana Bonilla. Patient is a 81 year old female with PMH HTN, CAD, chronic systolic dysfunction , AV fabiana; ablation and PPM implant, who presents with dyspnea. The patient was noted to have cough for the last few days. She developed dyspnea at rest. On admission to [facility] pro BNP was 1740. Review of Systems - Constitutional Constitutional: absent: As Per HPI, Anorexia, Chills, Daytime Sleepiness, Excessive Sweating, Fatigue, Fever, Frequent Falls, Headache, Increased Appetite , Lethargy, Malaise, Night Sweats, Snoring, Sleep Apnea, Weight Gain, Weight Loss, Weakness, Other - EENT Eyes: absent: As Per HPI, Blind Spots, Blurred Vision, Change in Vision, Decreased Night Vision, Diplopia, Discharge, Dry Eye, Exophthalmos, Floaters, Irritation, Itchy Eyes, Loss of Peripheral Vision, Pain, Photophobia, Requires Corrective Lenses, Sees Flashes, Spots in Vision, Tunnel Vision, Other Visual Disturbances, Loss of Vision, Other Ears: absent: As Per HPI, Decreased Hearing, Ear Discharge, Ear Pain, Tinnitus, Abnormal Hearing, Disequilibrium, Dizziness, Other Nose/Mouth/Throat: absent: As Per HPI, Epistaxis, Nasal Congestion, Nasal Discharge, Nasal Obstruction, Nasal Trauma, Nose Pain, Post Nasal Drip, Sinus Pain, Sinus Pressure, Bleeding Gums, Change in Voice, Dental Pain, Dry Mouth, Dysphagia, Halitosis, Hoarsness, Lip Swelling, Mouth Lesions, Mouth Pain, Odynophagia, Sore Throat, Throat Swelling, Tongue Swelling, Facial Pain, Neck Pain, Neck Mass, Other - Cardiovascular Cardiovascular: Dyspnea - Respiratory Respiratory: Cough, Dyspnea - Gastrointestinal Gastrointestinal: absent: As Per HPI, Abdominal Pain, Belching, Bloating, Change in Bowel Habits, Change in Stool Character, Coffee Ground Emesis, Constipation, Cramping, Diarrhea, Dyspepsia, Dysphagia, Early Satiety, Excessive Flatus, Fecal Incontinence, Heartburn, Hematemesis, Hematochezia, Loose Stools, Melena, Nausea, Odynophagia, Temesmus, Vomiting, Other - Genitourinary Genitourinary: absent: As Per HPI, Change in Urinary Stream, Difficulty Urinating, Dysuria, Flank Pain, Hematuria, Pyuria, Nocturia, Urinary Incontinence, Urinary Frequency, Urinary Hesitance, Urinary Urgency, Voiding Freq/Small Amts, Freq UTI, Hx Renal/Bladder Calculi, Hx /Renal Surgery, Bladder Distension, Other - Musculoskeletal Musculoskeletal: absent: As Per HPI, Abnormal Gait, Arthralgias, Atrophy, Back Pain, Deformity, Joint Swelling, Limited Range of Motion, Loss of Height, Muscle Cramps, Muscle Weakness, Myalgias, Neck Pain, Numbness, Radiating Pain into Limb, Stiffness, Tingling, Other - Integumentary Integumentary: absent: As Per HPI, Acne, Alopecia, Bleeding Lesions, Change in Hair, Change in Nails, Change in Pigmentation, Changing Lesions, Dry Skin, Erythema, Furuncle, Hirsutism, Lesions, New Lesions, Non-Healing Lesions, Photosensitivity, Pruritus, Rash, Skin Pain, Skin Ulcer, Sores, Striae, Swelling , Unusual Bruising, Wounds, Jaundice, Other - Neurological Neurological: absent: As Per HPI, Abnormal Gait, Abnormal Hearing, Abnormal Movements, Abnormal Speech, Behavioral Changes, Burning Sensations, Confusion, Convulsions, Disequilibrium, Dizziness, Numbness, Focal Weakness, Frequent Falls , Headaches, Lack of Coordination, Loss of Vision, Memory Loss, Paresthesias, Radicular Pain, Restless Legs, Sensory Deficit, Syncope, Tingling, Tremor, Vertigo, Weakness, Other Visual Disturbances, Other - Psychiatric Psychiatric: absent: As Per HPI, Abnormal Sleep Pattern, Anhedonia, Anxiety, Auditory Hallucinations, Behavioral Changes, Change in Appetite, Change in Libido, Confusion, Depression, Difficulty Concentrating, Hallucinations, Homicidal Ideation, Hopelessness, Irritability, Memory Loss, Mood Swings, Panic Attacks, Paranoia, Suicidal Ideation, Visual Hallucinations, Tactile Hallucinations, Other - Endocrine Endocrine: absent: As Per HPI, Change in Body Appearance, Change in Libido, Cold Intolorance, Deepening of Voice, Excessive Sweating, Fatigue, Flushing, Heat Intolorance, Increase in Ring/Shoe/Hat Size, Palpitations, Polydipsia, Polyphagia, Polyuria, Other - Hematologic/Lymphatic Hematologic: absent: As Per HPI, Easy Bleeding, Easy Bruising, Lymphadenopathy, Other Past Patient History - Infectious Disease Hx of Infectious Diseases: None - Tetanus Immunizations Tetanus Immunization: Unknown - Past Medical History & Family History Past Medical History?: Yes - Past Social History Smoking Status: Former Smoker - CARDIAC Hx Cardiac Disorders: Yes Hx Atrial Fibrillation: Yes Hx Cardia Arrhythmia: Yes Hx Congestive Heart Failure: Yes Hx Hypercholesterolemia: Yes Hx Hypertension: Yes Hx Peripheral Edema: Yes - PULMONARY Hx Respiratory Disorders: Yes Hx Asthma: Yes Hx Bronchitis: Yes Hx Chronic Obstructive Pulmonary Disease (COPD): Yes Hx Pneumonia: Yes - NEUROLOGICAL Hx Neurological Disorder: Yes Hx Dementia: Yes Hx Parkinson's Disease: Yes Hx Transient Ischemic Attacks (TIA): Yes - HEENT Hx HEENT Problems: No - RENAL Hx Chronic Kidney Disease: No - ENDOCRINE/METABOLIC Hx Endocrine Disorders: Yes Hx Diabetes Mellitus Type 2: Yes - HEMATOLOGICAL/ONCOLOGICAL Hx Blood Disorders: Yes Hx Anemia: Yes Hx Human Immunodeficiency Virus (HIV): No - INTEGUMENTARY Hx Dermatological Problems: No - MUSCULOSKELETAL/RHEUMATOLOGICAL Hx Musculoskeletal Disorders: Yes Hx Arthritis: Yes Hx Falls: Yes Hx Rheumatoid Arthritis: No - GASTROINTESTINAL Hx Gastrointestinal Disorders: No - GENITOURINARY/GYNECOLOGICAL Hx Genitourinary Disorders: No - PSYCHIATRIC Hx Psychophysiologic Disorder: No Hx Substance Use: No - SURGICAL HISTORY Hx Surgeries: Yes Hx Appendectomy: Yes Hx Carotid Endarterectomy: Yes Hx Cholecystectomy: Yes Hx Coronary Artery Bypass Graft: Yes - ANESTHESIA Hx Anesthesia: Yes Hx Anesthesia Reactions: No Hx Malignant Hyperthermia: No Has any member of the family had a problem w/ anesthesia?: No Meds Allergies/Adverse Reactions: Allergies Allergy/AdvReac Type Severity Reaction Status Date / Time No Known Allergies Allergy Verified 02/15/17 00:37 - Medications Medications: Current Medications Albuterol/Ipratropium (Duoneb 3 Mg/0.5 Mg (3 Ml) Ud) 3 ml INH RQID [facility] Last Admin: 02/15/17 19:12 Dose: 3 ml Atorvastatin Calcium (Lipitor) 40 mg PO HS [facility] Last Admin: 02/15/17 21:45 Dose: 40 mg Ferrous Sulfate (Feosol) 325 mg PO DAILY [facility] Last Admin: 02/15/17 08:44 Dose: 325 mg Furosemide (Lasix) 40 mg IV DAILY [facility] Last Admin: 02/15/17 08:43 Dose: 40 mg Gabapentin (Neurontin) 300 mg PO HS [facility] Last Admin: 02/15/17 21:46 Dose: 300 mg Methylprednisolone 60 mg/ (Sodium Chloride) 50 mls @ 100 mls/hr IV BID [facility] Last Admin: 02/15/17 16:32 Dose: 100 mls/hr Ibuprofen (Motrin Tab) 600 mg PO Q6 PRN PRN Reason: Pain, moderate (4-7) Multivitamins/Minerals (Therapeutic-M Tab) 1 tab PO DAILY [facility] Last Admin: 02/15/17 08:44 Dose: 1 tab Ondansetron HCl (Zofran Odt) 4 mg PO Q8 PRN PRN Reason: Nausea/Vomiting Last Admin: 02/15/17 08:46 Dose: 4 mg Potassium Chloride (K-Dur 20 Meq Er Tab) 20 meq PO DAILY [facility] Last Admin: 02/15/17 08:45 Dose: 20 meq Rivaroxaban (Xarelto) 15 mg PO DAILY [facility] PRN Reason: Protocol Last Admin: 02/15/17 08:45 Dose: 15 mg Fluticasone/Salmeterol (Advair Diskus 250/50) 1 puff IH Q12 [facility] Last Admin: 02/15/17 21:45 Dose: 1 puff Sitagliptin Phosphate (Januvia) 50 mg PO DAILY [facility] Last Admin: 02/15/17 08:46 Dose: 50 mg Physical Exam - Constitutional Appears: Non-toxic - Head Exam Head Exam: NORMAL INSPECTION - Eye Exam Eye Exam: Normal appearance - ENT Exam ENT Exam: Mucous Membranes Moist - Neck Exam Neck exam: Positive for: Full Rom - Respiratory Exam Respiratory Exam: Decreased Breath Sounds - Cardiovascular Exam Cardiovascular Exam: REGULAR RHYTHM - GI/Abdominal Exam GI & Abdominal Exam: Normal Bowel Sounds - Rectal Exam Rectal Exam: Deferred - Extremities Exam Extremities exam: Positive for: normal inspection - Back Exam Back exam: NORMAL INSPECTION - Neurological Exam Neurological exam: Alert, Oriented x3 - Psychiatric Exam Psychiatric exam: Normal Affect - Skin Skin Exam: Normal Color Results - Vital Signs Recent Vital Signs: Last Vital Signs Temp 98.3 F 02/16/17 05:06 Pulse 70 02/16/17 05:06 Resp 18 02/16/17 05:06 BP 126/63 02/16/17 05:06 Pulse Ox 94 L 02/16/17 05:06 - Labs Result Diagrams: 02/14/17 21:50 02/15/17 07:46 Labs: Laboratory Results - last 24 hr 02/15/17 02/15/17 02/15/17 07:29 07:46 11:16 Sodium 142 Potassium 3.3 L Chloride 94 L Carbon Dioxide 35 H Anion Gap 16 BUN 27 H Creatinine 0.9 Est GFR ( Amer) > 60 Est GFR (Non-Af Amer) 60 POC Glucose (mg/dL) 183 H Random Glucose 176 H Calcium 9.6 Troponin I 0.0430 02/15/17 02/15/17 02/15/17 15:20 15:50 21:15 Sodium Potassium Chloride Carbon Dioxide Anion Gap BUN Creatinine Est GFR ( Amer) Est GFR (Non-Af Amer) POC Glucose (mg/dL) 177 H 311 H Random Glucose Calcium Troponin I 0.0450 02/16/17 05:22 Sodium Potassium Chloride Carbon Dioxide Anion Gap BUN Creatinine Est GFR ( Amer) Est GFR (Non-Af Amer) POC Glucose (mg/dL) 148 H Random Glucose Calcium Troponin I - EKG Data EKG Interpreted by: Myself Assessment & Plan (1) CHF exacerbation Assessment and Plan: acute on chronic systolic. will recommend diuresis. may need to change lasiix to BID. Status: Acute (2) Benign essential HTN Assessment and Plan: blood pressure control Status: Acute (3) Coronary artery disease Assessment and Plan: no current angina Status: Acute (4) Atrial fibrillation Assessment and Plan: s/p AV fabiana ablation Status: Chronic
[2017-02-16 06:38] LABS: MEAN CELL VOLUME 88.9 fl (81.0-99.0); MEAN CORPUSCULAR HGB CONC 32.6 g/dL (33.0-37.0); RED CELL DISTRIBUTION WIDTH 16.1 % (11.5-14.5); WHITE BLOOD COUNT 10.5 K/uL (4.8-10.8)
[2017-02-16 06:46] LABS: ALB/GLOB RATIO 1.4 (1.0-2.1); BILIRUBIN,TOTAL 0.3 mg/dl (0.2-1.3); POTASSIUM 3.4 MMOL/L (3.6-5.0); TOTAL PROTEIN 6.9 G/DL (6.3-8.2)
[2017-02-16] MEDS: Albuterol-Ipratrop 3 mg / 0.5 (3 ml) UD INH SCH ×4 (07:46→19:04)
[2017-02-16] MEDS: Fluticasone-Salmeterol 250-50mcg Diskus IH SCH ×2 (08:49→21:35)
[2017-02-16] MEDS: Potassium Chloride 20 mEq ER Tab PO SCH (08:51)
[2017-02-16] MEDS: Multivitamin With Minerals Tab PO SCH (08:53)
[2017-02-16] MEDS: methylPREDNISolone 60 MG in Sodium Chloride 0.9% 50 ML IV SCH ×2 (08:53→17:00)
--- NOTE | 2017-02-16 20:11 | CP.PCM.PN ---
Subjective - Date & Time of Evaluation Date of Evaluation: 02/16/17 Time of Evaluation: 11:00 - Subjective Subjective: Patient feels better but still with a lot of rales and wheezing Has no fever Noted to have decrease in WBC to normal CXR showed possible effusion but no pneumonia. Has slight SOB No chest pain Objective - Vital Signs/Intake and Output Vital Signs (last 24 hours): Temp Pulse Resp BP Pulse Ox 98.3 F 62 18 123/57 L 97 02/16/17 17:00 02/16/17 17:00 02/16/17 17:00 02/16/17 17:00 02/16/17 17:00 - Medications Medications: Current Medications Albuterol/Ipratropium (Duoneb 3 Mg/0.5 Mg (3 Ml) Ud) 3 ml INH RQID [facility] Last Admin: 02/16/17 19:04 Dose: 3 ml Atorvastatin Calcium (Lipitor) 40 mg PO HS [facility] Last Admin: 02/15/17 21:45 Dose: 40 mg Digoxin (Lanoxin) 0.125 mg PO DAILY [facility] Ferrous Sulfate (Feosol) 325 mg PO DAILY [facility] Last Admin: 02/16/17 08:50 Dose: 325 mg Furosemide (Lasix) 40 mg IV DAILY [facility] Last Admin: 02/16/17 08:51 Dose: 40 mg Gabapentin (Neurontin) 300 mg PO HS [facility] Last Admin: 02/15/17 21:46 Dose: 300 mg Methylprednisolone 60 mg/ (Sodium Chloride) 50 mls @ 100 mls/hr IV BID [facility] Last Admin: 02/16/17 17:00 Dose: 100 mls/hr Ibuprofen (Motrin Tab) 600 mg PO Q6 PRN PRN Reason: Pain, moderate (4-7) Multivitamins/Minerals (Therapeutic-M Tab) 1 tab PO DAILY [facility] Last Admin: 02/16/17 08:53 Dose: 1 tab Ondansetron HCl (Zofran Odt) 4 mg PO Q8 PRN PRN Reason: Nausea/Vomiting Last Admin: 02/15/17 08:46 Dose: 4 mg Potassium Chloride (K-Dur 20 Meq Er Tab) 20 meq PO DAILY [facility] Last Admin: 02/16/17 08:51 Dose: 20 meq Rivaroxaban (Xarelto) 15 mg PO DAILY [facility] PRN Reason: Protocol Last Admin: 02/16/17 08:53 Dose: 15 mg Fluticasone/Salmeterol (Advair Diskus 250/50) 1 puff IH Q12 [facility] Last Admin: 02/16/17 08:49 Dose: 1 puff Sitagliptin Phosphate (Januvia) 50 mg PO DAILY [facility] Last Admin: 02/16/17 08:50 Dose: 50 mg - Labs Labs: 02/16/17 05:15 02/16/17 05:15 PT 14.2 Seconds (9.8-13.1) H 02/14/17 21:50 INR 1.3 (0.9-1.2) H 02/14/17 21:50 APTT 33.0 Seconds (25.6-37.1) 02/14/17 21:50 - Head Exam Head Exam: NORMAL INSPECTION - Eye Exam Eye Exam: Normal appearance - ENT Exam ENT Exam: Mucous Membranes Moist - Respiratory Exam Respiratory Exam: Decreased Breath Sounds, Rales - Cardiovascular Exam Cardiovascular Exam: REGULAR RHYTHM - GI/Abdominal Exam GI & Abdominal Exam: Normal Bowel Sounds - Neurological Exam Neurological Exam: Altered, Awake Assessment and Plan (1) CHF exacerbation Status: Acute (2) COPD exacerbation Status: Acute (3) Benign essential HTN Status: Acute (4) Atrial fibrillation Status: Chronic - Assessment and Plan (Free Text) Plan: Con tmeds Maintain soulumedrol at 60 bid cont neb tx oxygen rechek labs and probnp ambulate transfer to reg floor in AM.
[2017-02-17 04:53] LABS: ALB/GLOB RATIO 1.4 (1.0-2.1); BILIRUBIN,TOTAL 0.4 mg/dl (0.2-1.3); CALCIUM 8.3 mg/dL (8.4-10.2); HEMATOCRIT 28.8 % (34.0-47.0); LYMPH # 1.1 K/uL (1.0-4.3); LYMPH % 9.8 % (20.0-40.0); MEAN CELL VOLUME 89.5 fl (81.0-99.0); MEAN CORPUSCULAR HEMOGLOBIN 28.3 pg (27.0-31.0); MEAN CORPUSCULAR HGB CONC 31.6 g/dL (33.0-37.0); MEAN PLATELET VOLUME 10.7 fl (7.2-11.7); MONO # 0.5 K/uL (0.0-0.8); MONO % 4.4 % (0.0-10.0); NEUT # 9.6 K/uL (1.8-7.0); NEUT % 85.8 % (50.0-75.0); PLATELET COUNT 192 K/uL (130-400); POTASSIUM 3.4 MMOL/L (3.6-5.0); RED CELL DISTRIBUTION WIDTH 16.2 % (11.5-14.5); TOTAL PROTEIN 6.7 G/DL (6.3-8.2); WHITE BLOOD COUNT 11.2 K/uL (4.8-10.8)
[2017-02-17 07:10] LABS: NEUTROPHIL 79 % (42-75); REACTIVE LYMPHOCYTES 3 % (0-0); TOTAL CELLS COUNTED 100
[2017-02-17] MEDS: Albuterol-Ipratrop 3 mg / 0.5 (3 ml) UD INH SCH ×4 (07:10→19:12)
[2017-02-17] MEDS ORDERED: Alum-Mag Hydrox-Simethicone Susp (30 mL) PO PRN (09:27)
[2017-02-17] MEDS: methylPREDNISolone 60 MG in Sodium Chloride 0.9% 50 ML IV SCH ×2 (09:48→16:25)
[2017-02-17] MEDS: Fluticasone-Salmeterol 250-50mcg Diskus IH SCH ×2 (10:19→20:21)
[2017-02-17] MEDS: Digoxin 125 mcg (0.125 mg) Tab PO SCH (12:32)
[2017-02-17] MEDS: Potassium Chloride 20 mEq ER Tab PO SCH (12:32)
[2017-02-17] MEDS: Multivitamin With Minerals Tab PO SCH (12:33)
--- NOTE | 2017-02-17 14:09 | RAD ---
HISTORY: chf COMPARISON: Comparison chest dated 02/14/2017 FINDINGS: LUNGS: Slightly improved previously noted mild pulmonary vascular congestion. Small bibasilar atelectatic changes and or infiltrates with small bilateral effusions. . PLEURA: As above. No apparent pneumothorax . CARDIOVASCULAR: No change sternotomy wires, CABG clips prostatic valve or bipolar pacemaker. OSSEOUS STRUCTURES: Degenerative changes of the shoulder girdles bilaterally. Probable old healed fracture deformity left humeral head/ surgical neck VISUALIZED UPPER ABDOMEN: Normal. OTHER FINDINGS: None. IMPRESSION: Slightly improved previously noted mild pulmonary vascular congestion. Small bibasilar atelectatic changes and or infiltrates with small bilateral effusions. .
--- NOTE | 2017-02-17 14:19 | RAD ---
HISTORY: abdominal pain in 81 y.o. with hx of CAD/CABG COMPARISON: Comparison made with prior CT scan of the abdomen and pelvis and abdominal radiographs dated 12/15/2016 and 11/10/2010 respectively. . FINDINGS: BOWEL: No evidence of acute mechanical bowel obstruction. Moderate amount of soft stool seen throughout the cecum and ascending colon and to a lesser degree descending colon suggesting fecal retention/ constipation. 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 OTHER FINDINGS: Mild bibasilar and/or atelectasis/scarring with questionable small effusions left greater than right. Sternotomy wires CABG clips and valve replacement. Distal tip of a pacemaker wire again noted. Cardiomegaly. IMPRESSION: Findings consistent with constipation. No evidence of acute mechanical bowel obstruction.
[2017-02-17] MEDS: Pantoprazole 40 mg EC Tab PO SCH (21:54)
[2017-02-18] MEDS: Albuterol-Ipratrop 3 mg / 0.5 (3 ml) UD INH SCH ×4 (07:16→19:13)
[2017-02-18] MEDS: Digoxin 125 mcg (0.125 mg) Tab PO SCH (08:36)
[2017-02-18] MEDS: Potassium Chloride 20 mEq ER Tab PO SCH (08:36)
[2017-02-18] MEDS: Multivitamin With Minerals Tab PO SCH (08:37)
[2017-02-18] MEDS: Fluticasone-Salmeterol 250-50mcg Diskus IH SCH ×2 (11:02→20:12)
[2017-02-18] MEDS: methylPREDNISolone 60 MG in Sodium Chloride 0.9% 50 ML IV SCH ×2 (11:02→16:40)
[2017-02-18] MEDS: Pantoprazole 40 mg EC Tab PO SCH (21:41)
--- NOTE | 2017-02-18 21:48 | CP.PCM.PN ---
Subjective - Date & Time of Evaluation Date of Evaluation: 02/17/17 Time of Evaluation: 12:45 - Subjective Subjective: patient feels better. no further cough. Objective - Vital Signs/Intake and Output Vital Signs (last 24 hours): Temp Pulse Resp BP Pulse Ox 98.4 F 65 18 137/67 96 02/18/17 16:12 02/18/17 16:12 02/18/17 16:12 02/18/17 16:12 02/18/17 16:12 - Medications Medications: Current Medications Al Hydrox/Mg Hydrox/Simethicone (Maalox Plus 30 Ml) 30 ml PO TID PRN PRN Reason: Heartburn Albuterol/Ipratropium (Duoneb 3 Mg/0.5 Mg (3 Ml) Ud) 3 ml INH RQID [facility] Last Admin: 02/18/17 19:13 Dose: 3 ml Atorvastatin Calcium (Lipitor) 40 mg PO [facility] Last Admin: 02/18/17 21:41 Dose: 40 mg Clopidogrel Bisulfate (Plavix) 75 mg PO DAILY [facility] Last Admin: 02/18/17 08:37 Dose: 75 mg Digoxin (Lanoxin) 0.125 mg PO DAILY [facility] Last Admin: 02/18/17 08:36 Dose: 0.125 mg Ferrous Sulfate (Feosol) 325 mg PO DAILY [facility] Last Admin: 02/18/17 08:37 Dose: 325 mg Furosemide (Lasix) 40 mg IV DAILY [facility] Last Admin: 02/18/17 08:35 Dose: 40 mg Gabapentin (Neurontin) 300 mg PO HS [facility] Last Admin: 02/18/17 21:41 Dose: 300 mg Methylprednisolone 60 mg/ (Sodium Chloride) 50 mls @ 100 mls/hr IV BID [facility] Last Admin: 02/18/17 16:40 Dose: 100 mls/hr Ibuprofen (Motrin Tab) 600 mg PO Q6 PRN PRN Reason: Pain, moderate (4-7) Lactulose (Enulose) 20 gm PO DAILY PRN PRN Reason: Constipation Multivitamins/Minerals (Therapeutic-M Tab) 1 tab PO DAILY [facility] Last Admin: 02/18/17 08:37 Dose: 1 tab Ondansetron HCl (Zofran Odt) 4 mg PO Q8 PRN PRN Reason: Nausea/Vomiting Last Admin: 02/15/17 08:46 Dose: 4 mg Pantoprazole Sodium (Protonix Ec Tab) 40 mg PO HS [facility] Last Admin: 02/18/17 21:41 Dose: 40 mg Potassium Chloride (K-Dur 20 Meq Er Tab) 20 meq PO DAILY [facility] Last Admin: 02/18/17 08:36 Dose: 20 meq Rivaroxaban (Xarelto) 15 mg PO DAILY [facility] PRN Reason: Protocol Last Admin: 02/18/17 08:36 Dose: 15 mg Fluticasone/Salmeterol (Advair Diskus 250/50) 1 puff IH Q12 [facility] Last Admin: 02/18/17 20:12 Dose: 1 puff Sitagliptin Phosphate (Januvia) 50 mg PO DAILY [facility] Last Admin: 02/18/17 08:37 Dose: 50 mg Valsartan (Diovan) 160 mg PO DAILY [facility] Last Admin: 02/18/17 08:36 Dose: 160 mg - Labs Labs: 02/17/17 04:05 02/17/17 04:05 PT 14.2 Seconds (9.8-13.1) H 02/14/17 21:50 INR 1.3 (0.9-1.2) H 02/14/17 21:50 APTT 33.0 Seconds (25.6-37.1) 02/14/17 21:50 - Constitutional Appears: Non-toxic - Head Exam Head Exam: NORMAL INSPECTION - Eye Exam Eye Exam: Normal appearance - ENT Exam ENT Exam: Mucous Membranes Moist - Neck Exam Neck Exam: Full ROM - Respiratory Exam Respiratory Exam: NORMAL BREATHING PATTERN - Cardiovascular Exam Cardiovascular Exam: Irregular Rhythm - GI/Abdominal Exam GI & Abdominal Exam: Normal Bowel Sounds - Rectal Exam Rectal Exam: Deferred - Extremities Exam Extremities Exam: Pedal Edema - Back Exam Back Exam: NORMAL INSPECTION - Neurological Exam Neurological Exam: Alert - Psychiatric Exam Psychiatric exam: Normal Affect - Skin Skin Exam: Normal Color Assessment and Plan (1) CHF exacerbation Assessment & Plan: improving on medical therapy Status: Acute (2) Benign essential HTN Assessment & Plan: controlled Status: Acute (3) Coronary artery disease Assessment & Plan: no current angina Status: Acute (4) Atrial fibrillation Assessment & Plan: rate controlled. s/p AV fabiana ablation and PPM Status: Chronic
[2017-02-19] MEDS: Albuterol-Ipratrop 3 mg / 0.5 (3 ml) UD INH SCH ×4 (07:38→19:01)
[2017-02-19] MEDS: Fluticasone-Salmeterol 250-50mcg Diskus IH SCH ×2 (09:00→21:41)
[2017-02-19] MEDS: Digoxin 125 mcg (0.125 mg) Tab PO SCH (09:01)
[2017-02-19] MEDS: Potassium Chloride 20 mEq ER Tab PO SCH (09:01)
[2017-02-19] MEDS: methylPREDNISolone 60 MG in Sodium Chloride 0.9% 50 ML IV SCH (09:02)
[2017-02-19] MEDS: Multivitamin With Minerals Tab PO SCH (09:03)
--- NOTE | 2017-02-19 11:02 | CP.PCM.PN ---
Subjective - Date & Time of Evaluation Date of Evaluation: 02/17/17 Time of Evaluation: 09:40 - Subjective Subjective: Still with a lot of cough Noted rales on all lung pedroza Has no fever. Objective - Vital Signs/Intake and Output Vital Signs (last 24 hours): Temp Pulse Resp BP Pulse Ox 97.9 F 63 19 147/78 96 02/19/17 07:34 02/19/17 07:34 02/19/17 07:34 02/19/17 09:02 02/19/17 07:34 - Medications Medications: Current Medications Al Hydrox/Mg Hydrox/Simethicone (Maalox Plus 30 Ml) 30 ml PO TID PRN PRN Reason: Heartburn Albuterol/Ipratropium (Duoneb 3 Mg/0.5 Mg (3 Ml) Ud) 3 ml INH RQID [facility] Last Admin: 02/19/17 10:59 Dose: 3 ml Atorvastatin Calcium (Lipitor) 40 mg PO [facility] Last Admin: 02/18/17 21:41 Dose: 40 mg Clopidogrel Bisulfate (Plavix) 75 mg PO DAILY [facility] Last Admin: 02/19/17 09:02 Dose: 75 mg Digoxin (Lanoxin) 0.125 mg PO DAILY [facility] Last Admin: 02/19/17 09:01 Dose: 0.125 mg Ferrous Sulfate (Feosol) 325 mg PO DAILY [facility] Last Admin: 02/19/17 09:01 Dose: 325 mg Furosemide (Lasix) 40 mg IV DAILY [facility] Last Admin: 02/19/17 09:02 Dose: 40 mg Gabapentin (Neurontin) 300 mg PO HS [facility] Last Admin: 02/18/17 21:41 Dose: 300 mg Methylprednisolone 30 mg/ (Sodium Chloride) 50 mls @ 100 mls/hr IVPB DAILY [facility] Ibuprofen (Motrin Tab) 600 mg PO Q6 PRN PRN Reason: Pain, moderate (4-7) Last Admin: 02/18/17 22:27 Dose: 600 mg Lactulose (Enulose) 20 gm PO DAILY PRN PRN Reason: Constipation Last Admin: 02/19/17 09:03 Dose: 20 gm Multivitamins/Minerals (Therapeutic-M Tab) 1 tab PO DAILY [facility] Last Admin: 02/19/17 09:03 Dose: 1 tab Ondansetron HCl (Zofran Odt) 4 mg PO Q8 PRN PRN Reason: Nausea/Vomiting Last Admin: 02/15/17 08:46 Dose: 4 mg Pantoprazole Sodium (Protonix Ec Tab) 40 mg PO HS [facility] Last Admin: 02/18/17 21:41 Dose: 40 mg Potassium Chloride (K-Dur 20 Meq Er Tab) 20 meq PO DAILY [facility] Last Admin: 02/19/17 09:01 Dose: 20 meq Rivaroxaban (Xarelto) 15 mg PO DAILY [facility] PRN Reason: Protocol Last Admin: 02/19/17 09:03 Dose: 15 mg Fluticasone/Salmeterol (Advair Diskus 250/50) 1 puff IH Q12 [facility] Last Admin: 02/19/17 09:00 Dose: 1 puff Sitagliptin Phosphate (Januvia) 50 mg PO DAILY [facility] Last Admin: 02/19/17 09:01 Dose: 50 mg Valsartan (Diovan) 160 mg PO DAILY [facility] Last Admin: 02/19/17 09:00 Dose: 160 mg - Labs Labs: 02/17/17 04:05 02/17/17 04:05 PT 14.2 Seconds (9.8-13.1) H 02/14/17 21:50 INR 1.3 (0.9-1.2) H 02/14/17 21:50 APTT 33.0 Seconds (25.6-37.1) 02/14/17 21:50 - Head Exam Head Exam: NORMAL INSPECTION - Eye Exam Eye Exam: Normal appearance - ENT Exam ENT Exam: Mucous Membranes Moist - Respiratory Exam Respiratory Exam: Decreased Breath Sounds, Rales, Wheezes - Cardiovascular Exam Cardiovascular Exam: REGULAR RHYTHM - GI/Abdominal Exam GI & Abdominal Exam: Normal Bowel Sounds - Neurological Exam Neurological Exam: Awake, Oriented x3 Assessment and Plan (1) CHF exacerbation Status: Acute (2) COPD exacerbation Status: Acute (3) Benign essential HTN Status: Acute (4) Atrial fibrillation Status: Chronic - Assessment and Plan (Free Text) Plan: contmeds cont diuretic and neb tx cont solumedrol
--- NOTE | 2017-02-19 11:04 | CP.PCM.PN ---
Subjective - Date & Time of Evaluation Date of Evaluation: 02/18/17 Time of Evaluation: 10:00 - Subjective Subjective: Stillwith SOB Has no chest pain Has no fever. Objective - Vital Signs/Intake and Output Vital Signs (last 24 hours): Temp Pulse Resp BP Pulse Ox 97.9 F 63 19 147/78 96 02/19/17 07:34 02/19/17 07:34 02/19/17 07:34 02/19/17 09:02 02/19/17 07:34 - Medications Medications: Current Medications Al Hydrox/Mg Hydrox/Simethicone (Maalox Plus 30 Ml) 30 ml PO TID PRN PRN Reason: Heartburn Albuterol/Ipratropium (Duoneb 3 Mg/0.5 Mg (3 Ml) Ud) 3 ml INH RQID [facility] Last Admin: 02/19/17 10:59 Dose: 3 ml Atorvastatin Calcium (Lipitor) 40 mg PO HS [facility] Last Admin: 02/18/17 21:41 Dose: 40 mg Clopidogrel Bisulfate (Plavix) 75 mg PO DAILY [facility] Last Admin: 02/19/17 09:02 Dose: 75 mg Digoxin (Lanoxin) 0.125 mg PO DAILY [facility] Last Admin: 02/19/17 09:01 Dose: 0.125 mg Ferrous Sulfate (Feosol) 325 mg PO DAILY [facility] Last Admin: 02/19/17 09:01 Dose: 325 mg Furosemide (Lasix) 40 mg IV DAILY [facility] Last Admin: 02/19/17 09:02 Dose: 40 mg Gabapentin (Neurontin) 300 mg PO HS [facility] Last Admin: 02/18/17 21:41 Dose: 300 mg Methylprednisolone 30 mg/ (Sodium Chloride) 50 mls @ 100 mls/hr IVPB DAILY [facility] Ibuprofen (Motrin Tab) 600 mg PO Q6 PRN PRN Reason: Pain, moderate (4-7) Last Admin: 02/18/17 22:27 Dose: 600 mg Lactulose (Enulose) 20 gm PO DAILY PRN PRN Reason: Constipation Last Admin: 02/19/17 09:03 Dose: 20 gm Multivitamins/Minerals (Therapeutic-M Tab) 1 tab PO DAILY [facility] Last Admin: 02/19/17 09:03 Dose: 1 tab Ondansetron HCl (Zofran Odt) 4 mg PO Q8 PRN PRN Reason: Nausea/Vomiting Last Admin: 02/15/17 08:46 Dose: 4 mg Pantoprazole Sodium (Protonix Ec Tab) 40 mg PO HS [facility] Last Admin: 02/18/17 21:41 Dose: 40 mg Potassium Chloride (K-Dur 20 Meq Er Tab) 20 meq PO DAILY [facility] Last Admin: 02/19/17 09:01 Dose: 20 meq Rivaroxaban (Xarelto) 15 mg PO DAILY [facility] PRN Reason: Protocol Last Admin: 02/19/17 09:03 Dose: 15 mg Fluticasone/Salmeterol (Advair Diskus 250/50) 1 puff IH Q12 [facility] Last Admin: 02/19/17 09:00 Dose: 1 puff Sitagliptin Phosphate (Januvia) 50 mg PO DAILY [facility] Last Admin: 02/19/17 09:01 Dose: 50 mg Valsartan (Diovan) 160 mg PO DAILY [facility] Last Admin: 02/19/17 09:00 Dose: 160 mg - Labs Labs: 02/17/17 04:05 02/17/17 04:05 PT 14.2 Seconds (9.8-13.1) H 02/14/17 21:50 INR 1.3 (0.9-1.2) H 02/14/17 21:50 APTT 33.0 Seconds (25.6-37.1) 02/14/17 21:50 - Head Exam Head Exam: NORMAL INSPECTION - Eye Exam Eye Exam: Normal appearance - ENT Exam ENT Exam: Mucous Membranes Moist - Respiratory Exam Respiratory Exam: Rales, Wheezes - Cardiovascular Exam Cardiovascular Exam: REGULAR RHYTHM - GI/Abdominal Exam GI & Abdominal Exam: Normal Bowel Sounds - Neurological Exam Neurological Exam: Awake, Oriented x3 Assessment and Plan (1) CHF exacerbation Status: Acute (2) COPD exacerbation Status: Acute (3) Benign essential HTN Status: Acute (4) Atrial fibrillation Status: Chronic - Assessment and Plan (Free Text) Plan: cont meds conttx Cont solumedrol neb tx lasix
--- NOTE | 2017-02-19 11:05 | CP.PCM.PN ---
Subjective - Date & Time of Evaluation Date of Evaluation: 02/19/17 Time of Evaluation: 11:04 - Subjective Subjective: Patient remains stable Has cough but less Has no fever. Objective - Vital Signs/Intake and Output Vital Signs (last 24 hours): Temp Pulse Resp BP Pulse Ox 97.9 F 63 19 147/78 96 02/19/17 07:34 02/19/17 07:34 02/19/17 07:34 02/19/17 09:02 02/19/17 07:34 - Medications Medications: Current Medications Al Hydrox/Mg Hydrox/Simethicone (Maalox Plus 30 Ml) 30 ml PO TID PRN PRN Reason: Heartburn Albuterol/Ipratropium (Duoneb 3 Mg/0.5 Mg (3 Ml) Ud) 3 ml INH RQID [facility] Last Admin: 02/19/17 10:59 Dose: 3 ml Atorvastatin Calcium (Lipitor) 40 mg PO HS [facility] Last Admin: 02/18/17 21:41 Dose: 40 mg Clopidogrel Bisulfate (Plavix) 75 mg PO DAILY [facility] Last Admin: 02/19/17 09:02 Dose: 75 mg Digoxin (Lanoxin) 0.125 mg PO DAILY [facility] Last Admin: 02/19/17 09:01 Dose: 0.125 mg Ferrous Sulfate (Feosol) 325 mg PO DAILY [facility] Last Admin: 02/19/17 09:01 Dose: 325 mg Furosemide (Lasix) 40 mg IV DAILY [facility] Last Admin: 02/19/17 09:02 Dose: 40 mg Gabapentin (Neurontin) 300 mg PO HS [facility] Last Admin: 02/18/17 21:41 Dose: 300 mg Methylprednisolone 30 mg/ (Sodium Chloride) 50 mls @ 100 mls/hr IVPB DAILY [facility] Ibuprofen (Motrin Tab) 600 mg PO Q6 PRN PRN Reason: Pain, moderate (4-7) Last Admin: 02/18/17 22:27 Dose: 600 mg Lactulose (Enulose) 20 gm PO DAILY PRN PRN Reason: Constipation Last Admin: 02/19/17 09:03 Dose: 20 gm Multivitamins/Minerals (Therapeutic-M Tab) 1 tab PO DAILY [facility] Last Admin: 02/19/17 09:03 Dose: 1 tab Ondansetron HCl (Zofran Odt) 4 mg PO Q8 PRN PRN Reason: Nausea/Vomiting Last Admin: 02/15/17 08:46 Dose: 4 mg Pantoprazole Sodium (Protonix Ec Tab) 40 mg PO HS [facility] Last Admin: 02/18/17 21:41 Dose: 40 mg Potassium Chloride (K-Dur 20 Meq Er Tab) 20 meq PO DAILY [facility] Last Admin: 02/19/17 09:01 Dose: 20 meq Rivaroxaban (Xarelto) 15 mg PO DAILY [facility] PRN Reason: Protocol Last Admin: 02/19/17 09:03 Dose: 15 mg Fluticasone/Salmeterol (Advair Diskus 250/50) 1 puff IH Q12 [facility] Last Admin: 02/19/17 09:00 Dose: 1 puff Sitagliptin Phosphate (Januvia) 50 mg PO DAILY [facility] Last Admin: 02/19/17 09:01 Dose: 50 mg Valsartan (Diovan) 160 mg PO DAILY [facility] Last Admin: 02/19/17 09:00 Dose: 160 mg - Labs Labs: 02/17/17 04:05 02/17/17 04:05 PT 14.2 Seconds (9.8-13.1) H 02/14/17 21:50 INR 1.3 (0.9-1.2) H 02/14/17 21:50 APTT 33.0 Seconds (25.6-37.1) 02/14/17 21:50 - Head Exam Head Exam: NORMAL INSPECTION - Eye Exam Eye Exam: Normal appearance - ENT Exam ENT Exam: Mucous Membranes Moist - Respiratory Exam Respiratory Exam: Decreased Breath Sounds - GI/Abdominal Exam GI & Abdominal Exam: Normal Bowel Sounds - Neurological Exam Neurological Exam: Awake, Oriented x3 Assessment and Plan (1) CHF exacerbation Status: Acute (2) COPD exacerbation Status: Acute (3) Benign essential HTN Status: Acute (4) Atrial fibrillation Status: Chronic - Assessment and Plan (Free Text) Plan: con meds cont iv steroids DC plan in am
[2017-02-19 11:58] LABS: HEMATOCRIT 34.3 % (34.0-47.0); MEAN CELL VOLUME 89.4 fl (81.0-99.0); MEAN CORPUSCULAR HEMOGLOBIN 28.8 pg (27.0-31.0); MEAN CORPUSCULAR HGB CONC 32.2 g/dL (33.0-37.0); RED CELL DISTRIBUTION WIDTH 16.8 % (11.5-14.5); WHITE BLOOD COUNT 10.9 K/uL (4.8-10.8)
[2017-02-19 12:14] LABS: POTASSIUM 3.9 MMOL/L (3.6-5.0)
[2017-02-19 12:17] LABS: CALCIUM 9.9 mg/dL (8.4-10.2)
--- NOTE | 2017-02-19 16:49 | RAD ---
HISTORY: COPD Exacerbation COMPARISON: Chest x-ray performed 02/16/17 TECHNIQUE: Chest PA and lateral FINDINGS: Examination limited by habitus and hypoinflation. LUNGS: 1.8 x 3.3 cm ovoid right peritracheal opacity of unclear significance. Medial right lower lobe opacity may reflect atelectasis or pneumonia. Please note that chest x-ray has limited sensitivity for the detection of pulmonary masses. PLEURA: Blunting of the costophrenic angles may reflect tiny pleural effusions. No definite pneumothorax. CARDIOVASCULAR: Left-sided pacemaker. Borderline cardiomegaly. Median sternotomy wires with evidence of CABG. Dense atherosclerotic calcifications of the aortic knob. OSSEOUS STRUCTURES: Degenerative changes of the spine and shoulders. VISUALIZED UPPER ABDOMEN: Unremarkable. OTHER FINDINGS: None. IMPRESSION: Medial right lower lobe opacity may reflect atelectasis or pneumonia. Blunting of the costophrenic angles may reflect tiny pleural effusions. 1.8 x 3.3 cm ovoid right peritracheal opacity of unclear significance. If indicated, suggest further evaluation with CT of the chest with IV contrast. Additional findings as above.
[2017-02-19] MEDS: Pantoprazole 40 mg EC Tab PO SCH (21:41)
--- NOTE | 2017-02-20 07:37 | CP.PCM.PN ---
Subjective - Date & Time of Evaluation Date of Evaluation: 02/20/17 Time of Evaluation: 07:37 - Subjective Subjective: 81F Objective - Vital Signs/Intake and Output Vital Signs (last 24 hours): Temp Pulse Resp BP Pulse Ox 36.9 C 64 19 130/63 95 02/20/17 00:38 02/20/17 00:38 02/20/17 00:38 02/20/17 00:38 02/20/17 00:38 - Medications Medications: Current Medications Al Hydrox/Mg Hydrox/Simethicone (Maalox Plus 30 Ml) 30 ml PO TID PRN PRN Reason: Heartburn Albuterol/Ipratropium (Duoneb 3 Mg/0.5 Mg (3 Ml) Ud) 3 ml INH RQID [facility] Last Admin: 02/19/17 19:01 Dose: 3 ml Atorvastatin Calcium (Lipitor) 40 mg PO HS [facility] Last Admin: 02/19/17 21:41 Dose: 40 mg Clopidogrel Bisulfate (Plavix) 75 mg PO DAILY [facility] Last Admin: 02/19/17 09:02 Dose: 75 mg Digoxin (Lanoxin) 0.125 mg PO DAILY [facility] Last Admin: 02/19/17 09:01 Dose: 0.125 mg Ferrous Sulfate (Feosol) 325 mg PO DAILY [facility] Last Admin: 02/19/17 09:01 Dose: 325 mg Furosemide (Lasix) 40 mg IV DAILY [facility] Last Admin: 02/19/17 09:02 Dose: 40 mg Gabapentin (Neurontin) 300 mg PO HS [facility] Last Admin: 02/19/17 21:41 Dose: 300 mg Methylprednisolone 30 mg/ (Sodium Chloride) 50 mls @ 100 mls/hr IVPB DAILY [facility] Ibuprofen (Motrin Tab) 600 mg PO Q6 PRN PRN Reason: Pain, moderate (4-7) Last Admin: 02/18/17 22:27 Dose: 600 mg Lactulose (Enulose) 20 gm PO DAILY PRN PRN Reason: Constipation Last Admin: 02/19/17 09:03 Dose: 20 gm Multivitamins/Minerals (Therapeutic-M Tab) 1 tab PO DAILY [facility] Last Admin: 02/19/17 09:03 Dose: 1 tab Ondansetron HCl (Zofran Odt) 4 mg PO Q8 PRN PRN Reason: Nausea/Vomiting Last Admin: 02/15/17 08:46 Dose: 4 mg Pantoprazole Sodium (Protonix Ec Tab) 40 mg PO HS [facility] Last Admin: 02/19/17 21:41 Dose: 40 mg Potassium Chloride (K-Dur 20 Meq Er Tab) 20 meq PO DAILY [facility] Last Admin: 02/19/17 09:01 Dose: 20 meq Rivaroxaban (Xarelto) 15 mg PO DAILY [facility] PRN Reason: Protocol Last Admin: 02/19/17 09:03 Dose: 15 mg Fluticasone/Salmeterol (Advair Diskus 250/50) 1 puff IH Q12 [facility] Last Admin: 02/19/17 21:41 Dose: 1 puff Sitagliptin Phosphate (Januvia) 50 mg PO DAILY [facility] Last Admin: 02/19/17 09:01 Dose: 50 mg Valsartan (Diovan) 160 mg PO DAILY [facility] Last Admin: 02/19/17 09:00 Dose: 160 mg - Labs Labs: 02/19/17 11:05 02/19/17 11:05 PT 14.2 Seconds (9.8-13.1) H 02/14/17 21:50 INR 1.3 (0.9-1.2) H 02/14/17 21:50 APTT 33.0 Seconds (25.6-37.1) 02/14/17 21:50
[2017-02-20] MEDS: Albuterol-Ipratrop 3 mg / 0.5 (3 ml) UD INH SCH ×2 (07:41→11:08)
[2017-02-20 08:38] VITALS: BP 144/65; PULSE 60; RESP 20; TEMP 98; O2SAT 100
[2017-02-20] MEDS ORDERED: methylPREDNISolone 30 MG in Sodium Chloride 0.9% 50 ML IVPB SCH (09:00)
[2017-02-20] MEDS: Fluticasone-Salmeterol 250-50mcg Diskus IH SCH (09:10)
[2017-02-20] MEDS: Potassium Chloride 20 mEq ER Tab PO SCH (09:11)
[2017-02-20] MEDS: Digoxin 125 mcg (0.125 mg) Tab PO SCH (09:11)
[2017-02-20 09:13] VITALS: PULSE 65
[2017-02-20] MEDS: Multivitamin With Minerals Tab PO SCH (09:13)
--- NOTE | 2017-02-20 11:49 | CP.PCM.DIS ---
Provider - Provider Date of Admission: 02/14/17 23:08 Attending physician: Juan A Lawrence MD Time Spent in preparation of Discharge (in minutes): 45 Hospital Course - Lab Results Lab Results: Most Recent Lab Values WBC 10.9 K/uL (4.8-10.8) H 02/19/17 11:05 RBC 3.84 Mil/uL (3.80-5.20) 02/19/17 11:05 Hgb 11.1 g/dL (12.0-16.0) L D 02/19/17 11:05 Hct 34.3 % (34.0-47.0) 02/19/17 11:05 MCV 89.4 fl (81.0-99.0) 02/19/17 11:05 MCH 28.8 pg (27.0-31.0) 02/19/17 11:05 MCHC 32.2 g/dL (33.0-37.0) L 02/19/17 11:05 RDW 16.8 % (11.5-14.5) H 02/19/17 11:05 Plt Count 234 K/uL (130-400) 02/19/17 11:05 MPV 10.7 fl (7.2-11.7) 02/17/17 04:05 Neut % (Auto) 85.8 % (50.0-75.0) H 02/17/17 04:05 Lymph % (Auto) 9.8 % (20.0-40.0) L 02/17/17 04:05 Cooke % (Auto) 4.4 % (0.0-10.0) 02/17/17 04:05 Eos % (Auto) 0.0 % (0.0-4.0) 02/17/17 04:05 Baso % (Auto) 0.0 % (0.0-2.0) 02/17/17 04:05 Neut # 9.6 K/uL (1.8-7.0) H 02/17/17 04:05 Lymph # 1.1 K/uL (1.0-4.3) 02/17/17 04:05 Cooke # 0.5 K/uL (0.0-0.8) 02/17/17 04:05 Eos # 0.0 K/uL (0.0-0.7) 02/17/17 04:05 Baso # 0.0 K/uL (0.0-0.2) 02/17/17 04:05 Neutrophils % (Manual) 79 % (42-75) H 02/17/17 04:05 Band Neutrophils % 1 % (0-2) 02/17/17 04:05 Lymphocytes % (Manual) 16 % (20-50) L 02/17/17 04:05 Reactive Lymphs % 3 % (0-0) H 02/17/17 04:05 Monocytes % (Manual) 1 % (0-10) 02/17/17 04:05 Platelet Estimate Normal (NORMAL) 02/17/17 04:05 Hypochromasia (manual) Slight 02/17/17 04:05 Anisocytosis (manual) Slight 02/17/17 04:05 PT 14.2 Seconds (9.8-13.1) H 02/14/17 21:50 INR 1.3 (0.9-1.2) H 02/14/17 21:50 APTT 33.0 Seconds (25.6-37.1) 02/14/17 21:50 Sodium 140 mmol/l (132-148) 02/19/17 11:05 Potassium 3.9 MMOL/L (3.6-5.0) 02/19/17 11:05 Chloride 94 mmol/L (98-107) L 02/19/17 11:05 Carbon Dioxide 35 mmol/L (22-30) H 02/19/17 11:05 Anion Gap 15 (10-20) 02/19/17 11:05 BUN 63 mg/dl (7-17) H 02/19/17 11:05 Creatinine 1.1 mg/dL (0.7-1.2) 02/19/17 11:05 Est GFR ( Amer) 58 02/19/17 11:05 Est GFR (Non-Af Amer) 48 02/19/17 11:05 POC Glucose (mg/dL) 104 mg/dL (65-110) 02/20/17 11:35 Random Glucose 88 mg/dL (65-105) 02/19/17 11:05 Calcium 9.9 mg/dL (8.4-10.2) 02/19/17 11:05 Total Bilirubin 0.4 mg/dl (0.2-1.3) 02/17/17 04:05 AST 36 U/L (14-36) 02/17/17 04:05 ALT 32 U/L (9-52) 02/17/17 04:05 Alkaline Phosphatase 81 U/L (38-126) 02/17/17 04:05 Troponin I 0.0450 ng/mL (0.00-0.120) 02/15/17 15:20 NT-Pro-B Natriuret Pep 2020 pg/ml (0-900) H 02/17/17 04:05 Total Protein 6.7 G/DL (6.3-8.2) 02/17/17 04:05 Albumin 3.9 g/dL (3.5-5.0) 02/17/17 04:05 Globulin 2.8 gm/dL (2.2-3.9) 02/17/17 04:05 Albumin/Globulin Ratio 1.4 (1.0-2.1) 02/17/17 04:05 Digoxin 1.2 ng/mL (0.8-2.0) 02/14/17 22:30 - Hospital Course Hospital Course: 81F admitted with CHF and COPD exacerbation as well as hypokalemia. Patient markedly improved after initiation of lasix and steroids. She is now stable for discharge on new home medications of lasix with potassium replacement and tapered steroids. Discharge Exam - Head Exam Head Exam: ATRAUMATIC, NORMAL INSPECTION - Eye Exam Eye Exam: EOMI, PERRL - ENT Exam ENT Exam: Mucous Membranes Moist, Normal Exam - Neck Exam Neck exam: Normal Inspection - Respiratory Exam Respiratory Exam: Wheezes (mild), NORMAL BREATHING PATTERN. absent: Decreased Breath Sounds, Respiratory Distress - Cardiovascular Exam Cardiovascular Exam: REGULAR RHYTHM. absent: JVD - GI/Abdominal Exam GI & Abdominal Exam: Normal Bowel Sounds, Soft. absent: Tenderness - Extremities Exam Extremities exam: normal capillary refill, pedal pulses present - Neurological Exam Neurological exam: Alert, Oriented x3 - Psychiatric Exam Psychiatric exam: Normal Affect, Normal Mood - Skin Skin Exam: Normal Color, Warm Discharge Plan - Discharge Medications Prescriptions: Furosemide [Lasix] 40 mg PO DAILY #30 tablet Methylprednisolone [Medrol Dose Pack (21 tabs)] 4 mg PO DAILY #21 mg Potassium Chloride [K-Dur 20] 20 meq PO DAILY #30 tab - Follow Up Plan Condition: FAIR Disposition: HOME/ ROUTINE Patient education suggested?: Yes Instructions: Hypokalemia (DC), Hypokalemia (GEN), Heart Failure (DC), COPD ( Chronic Obstructive Pulmonary Disease) (DC) Referrals: Juan A Lawrence MD [Family Provider] - 02/26/17
== END 2017-02-20 12:53 | disposition home health service (06) | DRG 190 ==
LOC: H.ER 20:42 → H.ERHOLD 23:08 → H.TEL 02-15 01:12 → H.MEDSURG1 02-17 14:19
PROVIDERS: ADMIT Family Medicine; ATTEND Family Medicine
PROC: 3E0F7GC Introduction of Other Therapeutic Substance into Respiratory Tract, Via Natural or Artificial Opening (ICD-10-PCS; principal; 2017-02-15)
DX: J44.1 Chronic obstructive pulmonary disease with (acute) exacerbation (principal); I50.23 Acute on chronic systolic (congestive) heart failure; G20 Parkinson's disease; F03.90 Unspecified dementia, unspecified severity, without behavioral disturbance, psychotic disturbance, mood disturbance, and anxiety; I48.2 Chronic atrial fibrillation; E11.9 Type 2 diabetes mellitus without complications; D64.9 Anemia, unspecified; E78.5 Hyperlipidemia, unspecified; I11.0 Hypertensive heart disease with heart failure; E78.00 Pure hypercholesterolemia, unspecified; E87.6 Hypokalemia; I25.10 Atherosclerotic heart disease of native coronary artery without angina pectoris; Z79.01 Long term (current) use of anticoagulants; Z79.51 Long term (current) use of inhaled steroids; Z83.3 Family history of diabetes mellitus; Z86.73 Personal history of transient ischemic attack (TIA), and cerebral infarction without residual deficits; Z87.01 Personal history of pneumonia (recurrent); Z87.891 Personal history of nicotine dependence; Z95.1 Presence of aortocoronary bypass graft; M19.90 Unspecified osteoarthritis, unspecified site

== ENCOUNTER 2017-05-14 18:06 | Inpatient (IN) | payer MEDICARE, OTHER ==
[2017-05-14 18:06] VITALS: BMI 23.8
[2017-05-14] MEDS ORDERED: Albuterol-Ipratrop 3 mg / 0.5 (3 ml) UD INH STA ×2 (18:29→20:20)
--- NOTE | 2017-05-14 18:47 | ED PDOC ---
HPI: SOB/CHF/COPD Time Seen by Provider: 05/14/17 18:25 Chief Complaint (Nursing): Chest Pain Chief Complaint (Provider): Shortness of breath History Per: Patient, Family (daughter) History/Exam Limitations: no limitations Onset/Duration Of Symptoms: Days (x multiple weeks) Current Symptoms Are (Timing): Still Present Associated Symptoms: Productive Cough, Ankle/Leg Swelling Additional Complaint(s): Sadie De Jesus is an 82 y/o female with a history of CHF, CAD s/p CABG, proximal A Fib, COPD, diabetes, hypertension, and mild dementia, who presents to the ED with daughter complaining of worsening shortness of breath, cough, and orthopnea. Symptoms are associated with lower extremity swelling. Also states she was given antibiotics by [facility], Dr. Jean, which improved symptoms, but symptoms have now returned. Denies fever. Cough is productive of yellow sputum. PMD: Juan A Lawrence - Risk Factors PE Risk Factors: Pos: CHF Past Medical History Reviewed: Historical Data, Nursing Documentation, Vital Signs Vital Signs: Last Vital Signs Temp 98.3 F 05/18/17 12:24 Pulse 66 05/18/17 12:24 Resp 20 05/18/17 12:24 BP 135/80 05/18/17 12:24 Pulse Ox 100 05/18/17 12:24 - Medical History PMH: Anemia, Arthritis, Asthma, Atrial Fibrillation, Bronchitis, CAD (valvular heart disease), Cardia Arrhythmia, CHF, COPD, CVA (recurrent), Dementia, Diabetes (type II), HTN, Hypercholesterolemia, Hyperlipidemia, Parkinson's Disease, Peripheral Edema, Pneumonia, TIA Denies: HIV, Hypothyroidism, Chronic Kidney Disease, Rheumatoid Arthritis - Surgical History Surgical History: Appendectomy, CABG, Carotid Endarterectomy, Cholecystectomy - Family History Family History: States: Unknown Family Hx - Immunization History Hx Tetanus Toxoid Vaccination: No Hx Influenza Vaccination: No Hx Pneumococcal Vaccination: No - Home Medications Home Medications: Ambulatory Orders Medication Instructions Recorded Ferrous Sulfate [Feosol] 325 mg PO DAILY 09/12/16 Fluticasone/Vilanterol [Breo 1 puff IH DAILY 09/12/16 Ellipta 200-25 Mcg INH] Linagliptin [Tradjenta] 5 mg PO DAILY 09/12/16 Gabapentin [Neurontin] 300 mg PO HS 12/15/16 Mv,Min10/Folic Acid/D3/Ala/Lut 1 tab PO DAILY 12/15/16 [Strovite One Caplet] Rivaroxaban [Xarelto] 15 mg PO DAILY 12/15/16 Albuterol/Ipratropium [Duoneb 3 3 ml IH Q6H PRN 02/16/17 mg/0.5 mg (3 ml) UD] Clopidogrel [Plavix] 75 mg PO DAILY 02/16/17 Digoxin [Lanoxin] 0.125 mg PO DAILY 02/16/17 Memantine HCl [Namenda Xr] 14 mg PO DAILY 02/16/17 Omeprazole 20 mg PO DAILY 02/16/17 Valsartan [Diovan] 160 mg PO DAILY 02/16/17 Zolpidem [Ambien] 5 mg PO HS 02/16/17 metOLazone [Zaroxolyn] 2.5 mg PO DAILY 02/16/17 Furosemide [Lasix] 40 mg PO DAILY #30 tablet 02/20/17 Potassium Chloride [K-Dur 20] 20 meq PO DAILY #30 tab 02/20/17 - Allergies Allergies/Adverse Reactions: Allergies Allergy/AdvReac Type Severity Reaction Status Date / Time No Known Allergies Allergy Verified 02/15/17 00:37 Review of Systems ROS Statement: Except As Marked, All Systems Reviewed And Found Negative Constitutional: Negative for: Fever, Chills Respiratory: Positive for: Cough, Shortness of Breath, Sputum, Other (orthopnea) Musculoskeletal: Positive for: Other (Edema) Physical Exam - Reviewed Nursing Documentation Reviewed: Yes Vital Signs Reviewed: Yes - Physical Exam Appears: Negative for: Well (Appears frail and in mild respiratory distress) Head Exam: Positive for: ATRAUMATIC, NORMAL INSPECTION, NORMOCEPHALIC Skin: Positive for: Normal Color, Warm, Dry Eye Exam: Positive for: EOMI, Normal appearance, PERRL Neck: Positive for: Normal, Painless ROM, Supple Cardiovascular/Chest: Positive for: Regular Rate, Rhythm. Negative for: Murmur Respiratory: Positive for: Rales (at both bases), Wheezing (bilateral), Respiratory Distress (mild). Negative for: Normal Breath Sounds Gastrointestinal/Abdominal: Positive for: Normal Exam, Soft. Negative for: Tenderness Back: Positive for: Normal Inspection Extremity: Positive for: Normal ROM, Pedal Edema (3+ pitting edema bilaterally) Neurologic/Psych: Positive for: Alert, Oriented - Laboratory Results Result Diagrams: 05/18/17 05:40 05/18/17 05:40 - ECG ECG: Positive for: Interpreted By Me, Viewed By Me ECG Rhythm: Positive for: Sinus Rhythm, Right Bundle Branch Block Interpretation Of Abn EKG: similar to February 2016 comparison Rate: 86 O2 Sat by Pulse Oximetry: 97 (RA) Pulse Ox Interpretation: Normal Medical Decision Making Medical Decision Making: Impression: Work up for COPD/CHF exacerbation with respiratory failure Time: 18:28 Initial Plan: --CBC w/ differentials --CMP --Troponin I --B-type natriuretic peptide --Blood culture --Urinalysis --CXR 2 views --Patient given Duoneb 3 ml INH treatment Time: 19:00 --Ordered Solu-medrol 60 mg IV --Patient is signed out by me to Dr. Pablo Pelletier, pending work up and final disposition Scribe Attestation: Documented by Yojana Harrison, acting as a scribe for Luisito Armas III, DO Provider Scribe Attestation: All medical record entries made by the Scribe were at my direction and personally dictated by me. I have reviewed the chart and agree that the record accurately reflects my personal performance of the history, physical exam, medical decision making, and the department course for this patient. I have also personally directed, reviewed, and agree with the discharge instructions and disposition. Disposition - Clinical Impression Clinical Impression: Chest pain, COPD exacerbation, CHF (congestive heart failure) - Patient ED Disposition Is Patient to be Admitted: Transfer of Care Counseled Patient/Family Regarding: Studies Performed, Diagnosis - Disposition Disposition: Transfer of Care Disposition Time: 19:00 Condition: FAIR
[2017-05-14] MEDS ORDERED: Albuterol-Ipratrop 3 mg / 0.5 (3 ml) UD ONE (18:59)
[2017-05-14 19:25] LABS: BASO % 0.3 % (0.0-2.0); EOS # 0.1 K/uL (0.0-0.7); EOS % 0.7 % (0.0-4.0); HEMATOCRIT 33.2 % (34.0-47.0); LYMPH # 1.4 K/uL (1.0-4.3); LYMPH % 12.7 % (20.0-40.0); MEAN CELL VOLUME 93.6 fl (81.0-99.0); MEAN CORPUSCULAR HEMOGLOBIN 28.7 pg (27.0-31.0); MEAN CORPUSCULAR HGB CONC 30.6 g/dL (33.0-37.0); MEAN PLATELET VOLUME 10.4 fl (7.2-11.7); MONO % 8.8 % (0.0-10.0); NEUT # 8.8 K/uL (1.8-7.0); NEUT % 77.5 % (50.0-75.0); NRBC % 0.1 % (0.0-0.0); RED CELL DISTRIBUTION WIDTH 19.7 % (11.5-14.5); WHITE BLOOD COUNT 11.4 K/uL (4.8-10.8)
[2017-05-14 19:30] LABS: ALB/GLOB RATIO 1.3 (1.0-2.1); ALKALINE PHOSPHATASE 94 U/L (38-126); ALT/SGPT 69 U/L (9-52); AST/SGOT 95 U/L (14-36); BLOOD UREA NITROGEN 32 mg/dl (7-17); CALCIUM 9.2 mg/dL (8.4-10.2); CARBON DIOXIDE 27 mmol/L (22-30); CHLORIDE 101 mmol/L (98-107); GFR AFRICAN-AMERICAN > 60; GLUCOSE,RANDOM 157 mg/dL (65-105); POTASSIUM 3.8 MMOL/L (3.6-5.0); SODIUM 138 mmol/l (132-148); TOTAL PROTEIN 6.3 G/DL (6.3-8.2)
--- NOTE | 2017-05-14 19:34 | ED PDOC ---
- Laboratory Results Result Diagrams: 05/14/17 19:09 05/14/17 19:09 - ECG O2 Sat by Pulse Oximetry: 97 (RA) Pulse Ox Interpretation: Normal - Progress Re-evaluation Time: 20:23 Condition: Re-examined, Improving,but remains with symptoms Medical Decision Making Medical Decision Making: Time: 19:00 --Patient is signed out by Dr. Luisito Armas III DO to me, pending labs, CXR, and final disposition Time: 20:00 --Patient is to be admitted inpatient to Telemetry for CHF exacerbation and COPD exacerbation, under the service of Dr. Juan A Lawrence Scribe Attestation: Documented by Yojana Harrison, acting as a scribe for Pablo Pelletier MD Provider Scribe Attestation: All medical record entries made by the Scribe were at my direction and personally dictated by me. I have reviewed the chart and agree that the record accurately reflects my personal performance of the history, physical exam, medical decision making, and the department course for this patient. I have also personally directed, reviewed, and agree with the discharge instructions and disposition. Disposition Discussed With : Juan A Lawrence Doctor Will See Patient In The: Office Counseled Patient/Family Regarding: Studies Performed, Diagnosis - Clinical Impression Clinical Impression: Chest pain, COPD exacerbation, CHF (congestive heart failure) - POA Present On Arrival: None - Disposition Disposition: Admitted as In-Patient Disposition Time: 20:00 Condition: FAIR
[2017-05-14] MEDS ORDERED: MethylPREDNISolone 40 mg Vial ONE (20:21)
[2017-05-14 20:47] LABS: ABG ALLEN TEST YES; ARTERIAL BLOOD GAS O2 CAPACITY 14.6 mL/dL (16-24); ARTERIAL BLOOD GAS O2 CONTENT 14.7 ML/dL (15-23); ARTERIAL BLOOD GAS PH 7.52 (7.35-7.45); ARTERIAL BLOOD GAS PO2 130 mm/Hg (80-100); ARTERIAL BLOOD HGB O2 SAT 95.8 % (95.0-98.0); CARBOXYHEMOGLOBIN 2.9 % (0.5-1.5); HHB -0.8 % (0.0-5.0); METHEMOGLOBIN 2.1 % (0.0-3.0)
[2017-05-14 20:51] LABS: RBC URINE 2 /hpf (0-3); URINE BILIRUBIN NEGATIVE (NEGATIVE); URINE BLOOD NEGATIVE (NEGATIVE); URINE COLOR YELLOW (YELLOW); URINE GLUCOSE (UA) NEG (Normal); URINE KETONE NEGATIVE (NEGATIVE); URINE LEUKOCYTE ESTERASE NEG Leu/uL (Negative); URINE PROTEIN 30 mg/dL (NEGATIVE); URINE UROBILINOGEN 0.2-1.0 mg/dL (0.2-1.0); WBC URINE 3 /hpf (0-5)
[2017-05-14] MEDS ORDERED: Albuterol-Ipratrop 3 mg / 0.5 (3 ml) UD IH PRN (23:01)
[2017-05-15] MEDS: Albuterol-Ipratrop 3 mg / 0.5 (3 ml) UD INH SCH ×6 (01:01→23:59)
[2017-05-15 07:24] LABS: HEMATOCRIT 30.6 % (34.0-47.0); MEAN CELL VOLUME 91.2 fl (81.0-99.0); MEAN CORPUSCULAR HEMOGLOBIN 29.3 pg (27.0-31.0); MEAN CORPUSCULAR HGB CONC 32.1 g/dL (33.0-37.0); RED CELL DISTRIBUTION WIDTH 18.6 % (11.5-14.5)
[2017-05-15 07:29] LABS: ALB/GLOB RATIO 1.3 (1.0-2.1); ALKALINE PHOSPHATASE 83 U/L (38-126); ALT/SGPT 62 U/L (9-52); AST/SGOT 110 U/L (14-36); BILIRUBIN,TOTAL 1.3 mg/dl (0.2-1.3); BLOOD UREA NITROGEN 33 mg/dl (7-17); CALCIUM 9.1 mg/dL (8.4-10.2); CARBON DIOXIDE 31 mmol/L (22-30); CHLORIDE 99 mmol/L (98-107); GFR AFRICAN-AMERICAN > 60; GLUCOSE,RANDOM 149 mg/dL (65-105); POTASSIUM 4.3 MMOL/L (3.6-5.0); SODIUM 139 mmol/l (132-148); TOTAL PROTEIN 6.2 G/DL (6.3-8.2)
[2017-05-15] MEDS ORDERED: MEMANTINE HCL 14 MG PO SCH (09:00)
[2017-05-15] MEDS ORDERED: Patient's Own Med (Mv,Min10/Folic Acid/D3/Ala/Lut [Strovite One Caplet] 1 TAB) PO SCH (09:00)
[2017-05-15] MEDS ORDERED: Patient's Own Med (Fluticasone/Vilanterol [Breo Ellipta 200-25 Mcg Inh] 1 PUFF) IH SCH (09:00)
--- NOTE | 2017-05-15 09:08 | RAD ---
HISTORY: chest pain/ r/o infiltrate COMPARISON: Portable chest 02/19/2017. TECHNIQUE: Two views of the chest and submitted for interpretation PA and lateral positions. FINDINGS: Prosthetic cardiac valve and pacemaker again identified. LUNGS: An interval minimal right pleural effusion identified with trace left pleural effusion or fibrosis remaining blunting left costophrenic sulcus. Fluid is identified in the minor fissure. Linear atelectasis or fibrosis in the left base with limited interval patchy density seen the retrocardiac left lower lobe. Similar changes seen at the right base more so than the left with bilateral pneumonia or infiltrates question. PLEURA: No pneumothorax. CARDIOVASCULAR: Stable mild cardiomegaly is seen without definite pulmonary vascular derangement. OSSEOUS STRUCTURES: Sternotomy wires again noted. VISUALIZED UPPER ABDOMEN: Normal. OTHER FINDINGS: None. IMPRESSION: Interval limited bibasilar atelectasis or infiltrates are noted with interval minimal right pleural effusion present and left costophrenic fibrosis or trace chronic pleural effusion evident.
[2017-05-15] MEDS: Fluticasone-Salmeterol 250-50mcg Diskus IH SCH ×2 (09:44→22:14)
[2017-05-15] MEDS: metOLazone 2.5 MG TAB PO SCH (09:47)
[2017-05-15] MEDS: Multivitamin With Minerals Tab PO SCH (09:47)
[2017-05-15] MEDS: Pantoprazole 40 mg EC Tab PO SCH (09:48)
[2017-05-15] MEDS: Potassium Chloride 20 mEq ER Tab PO SCH (09:51)
[2017-05-15] MEDS: Digoxin 125 mcg (0.125 mg) Tab PO SCH (09:51)
[2017-05-15] MEDS: methylPREDNISolone 40 MG in Sodium Chloride 0.9% 50 ML IVPB SCH ×2 (09:56→22:14)
--- NOTE | 2017-05-15 11:09 | CP.PCM.HP ---
<Lily Solis - Last Filed: 05/15/17 13:30> History of Present Illness - History of Present Illness History of Present Illness: 82 year old female with PMHx CHF, CAD (CABG), afib s/p ablation, COPD, CVA/TIA, HLD, NIIDM, dementia presented with 3 day histor of worsening dyspnea and productive cough. Patient reports she has nebulizer machine at home but it was not helping so she came to the hospital. Inital interview this morning patient complained she continued to be short of breath today. Upon reassessment this afternoon the patient is much improved with duoneb treatments. PMH CHF, CAD, COPD, CVA/TIA, HLD, NIDDM Medications: reviewed Allergies NKDA Present on Admission - Present on Admission Any Indicators Present on Admission: No Past Patient History - Infectious Disease Hx of Infectious Diseases: None - Tetanus Immunizations Tetanus Immunization: Unknown - Past Medical History & Family History Past Medical History?: Yes - Past Social History Smoking Status: Never Smoked - CARDIAC Hx Cardiac Disorders: Yes (HTN) Hx Atrial Fibrillation: Yes Hx Cardia Arrhythmia: Yes Hx Congestive Heart Failure: Yes Hx Hypercholesterolemia: Yes Hx Hypertension: Yes Hx Pacemaker: Yes Hx Peripheral Edema: Yes - PULMONARY Hx Asthma: Yes Hx Bronchitis: Yes Hx Chronic Obstructive Pulmonary Disease (COPD): Yes Hx Pneumonia: Yes - NEUROLOGICAL HX Cerebrovascular Accident: Yes Hx Dementia: Yes Hx Parkinson's Disease: Yes Hx Transient Ischemic Attacks (TIA): Yes - HEENT Hx HEENT Problems: No - RENAL Hx Chronic Kidney Disease: No - ENDOCRINE/METABOLIC Hx Diabetes Mellitus Type 2: Yes - HEMATOLOGICAL/ONCOLOGICAL Hx AIDS: No Hx Anemia: Yes Hx Human Immunodeficiency Virus (HIV): No - INTEGUMENTARY Hx Dermatological Problems: No - MUSCULOSKELETAL/RHEUMATOLOGICAL Hx Arthritis: Yes Hx Falls: Yes Hx Rheumatoid Arthritis: No - GASTROINTESTINAL Hx Gastrointestinal Disorders: No - GENITOURINARY/GYNECOLOGICAL Hx Genitourinary Disorders: No - PSYCHIATRIC Hx Psychophysiologic Disorder: No Hx Substance Use: No - SURGICAL HISTORY Hx Appendectomy: Yes Hx Carotid Endarterectomy: Yes Hx Cholecystectomy: Yes Hx Coronary Artery Bypass Graft: Yes - ANESTHESIA Hx Anesthesia: Yes Hx Anesthesia Reactions: No Hx Malignant Hyperthermia: No Meds Allergies/Adverse Reactions: Allergies Allergy/AdvReac Type Severity Reaction Status Date / Time No Known Allergies Allergy Verified 02/15/17 00:37 Physical Exam - Constitutional Appears: In Acute Distress (respiratory distress) - Eye Exam Eye Exam: EOMI, Normal appearance, PERRL - ENT Exam ENT Exam: Mucous Membranes Moist - Respiratory Exam Respiratory Exam: Decreased Breath Sounds, Rales, Wheezes. absent: Chest Wall Tenderness, Clear to Auscultation Bilateral, Prolonged Expiratory Phase, Rhonchi , Stridor Additional comments: tachchypneic, dyspneic - Cardiovascular Exam Cardiovascular Exam: REGULAR RHYTHM, +S1, +S2 Additional comments: distant heart sounds - GI/Abdominal Exam GI & Abdominal Exam: Normal Bowel Sounds, Soft. absent: Tenderness - Extremities Exam Extremities exam: Positive for: normal inspection - Neurological Exam Neurological exam: Alert, CN II-XII Intact - Psychiatric Exam Psychiatric exam: Normal Affect, Normal Mood - Skin Skin Exam: Dry, Intact, Pallor, Warm Results - Vital Signs Recent Vital Signs: Last Vital Signs Temp 97.7 F 05/15/17 08:00 Pulse 60 05/15/17 08:00 Resp 18 05/15/17 08:00 BP 144/72 05/15/17 09:49 Pulse Ox 100 05/15/17 08:00 - Labs Result Diagrams: 05/15/17 05:55 05/15/17 05:55 Labs: Laboratory Results - last 24 hr 05/14/17 05/14/17 05/14/17 20:30 20:37 20:41 WBC RBC Hgb Hct MCV MCH MCHC RDW Plt Count pCO2 40 pO2 130 H HCO3 32.0 H ABG pH 7.52 H ABG Total CO2 33.9 H ABG O2 Saturation 100.8 H ABG O2 Content 14.7 L ABG Base Excess 9.1 H ABG Hemoglobin 10.7 L ABG Carboxyhemoglobin 2.9 H POC ABG HHb (Measured) -0.8 L ABG Methemoglobin 2.1 ABG O2 Capacity 14.6 L Kermit Test Yes A-a O2 Difference 48.0 Hgb O2 Saturation 95.8 FiO2 32.0 Sodium Potassium Chloride Carbon Dioxide Anion Gap BUN Creatinine Est GFR ( Amer) Est GFR (Non-Af Amer) POC Glucose (mg/dL) Random Glucose Calcium Total Bilirubin AST ALT Alkaline Phosphatase NT-Pro-B Natriuret Pep Total Protein Albumin Globulin Albumin/Globulin Ratio Urine Color Yellow Urine Clarity Slighty-cloudy Urine pH 7.0 Ur Specific [place] 1.013 Urine Protein 30 Urine Glucose (UA) Neg Urine Ketones Negative Urine Blood Negative Urine Nitrate Negative Urine Bilirubin Negative Urine Urobilinogen 0.2-1.0 Ur Leukocyte Esterase Neg Urine RBC (Auto) 2 Urine Microscopic WBC 3 Ur Squamous Epith Cells 2 Digoxin 0.9 05/14/17 05/15/17 05/15/17 22:47 05:28 05:55 WBC 7.0 RBC 3.36 L Hgb 9.8 L Hct 30.6 L MCV 91.2 D MCH 29.3 MCHC 32.1 L RDW 18.6 H Plt Count 226 pCO2 pO2 HCO3 ABG pH ABG Total CO2 ABG O2 Saturation ABG O2 Content ABG Base Excess ABG Hemoglobin ABG Carboxyhemoglobin POC ABG HHb (Measured) ABG Methemoglobin ABG O2 Capacity Kermit Test A-a O2 Difference Hgb O2 Saturation FiO2 Sodium Potassium Chloride Carbon Dioxide Anion Gap BUN Creatinine Est GFR ( Amer) Est GFR (Non-Af Amer) POC Glucose (mg/dL) 168 H 170 H Random Glucose Calcium Total Bilirubin AST ALT Alkaline Phosphatase NT-Pro-B Natriuret Pep Total Protein Albumin Globulin Albumin/Globulin Ratio Urine Color Urine Clarity Urine pH Ur Specific [place] Urine Protein Urine Glucose (UA) Urine Ketones Urine Blood Urine Nitrate Urine Bilirubin Urine Urobilinogen Ur Leukocyte Esterase Urine RBC (Auto) Urine Microscopic WBC Ur Squamous Epith Cells Digoxin 05/15/17 05:55 WBC RBC Hgb Hct MCV MCH MCHC RDW Plt Count pCO2 pO2 HCO3 ABG pH ABG Total CO2 ABG O2 Saturation ABG O2 Content ABG Base Excess ABG Hemoglobin ABG Carboxyhemoglobin POC ABG HHb (Measured) ABG Methemoglobin ABG O2 Capacity Kermit Test A-a O2 Difference Hgb O2 Saturation FiO2 Sodium 139 Potassium 4.3 Chloride 99 Carbon Dioxide 31 H Anion Gap 13 BUN 33 H Creatinine 0.9 Est GFR ( Amer) > 60 Est GFR (Non-Af Amer) 60 POC Glucose (mg/dL) Random Glucose 149 H Calcium 9.1 Total Bilirubin 1.3 AST 110 H ALT 62 H Alkaline Phosphatase 83 NT-Pro-B Natriuret Pep 7900 H Total Protein 6.2 L Albumin 3.4 L Globulin 2.7 Albumin/Globulin Ratio 1.3 Urine Color Urine Clarity Urine pH Ur Specific [place] Urine Protein Urine Glucose (UA) Urine Ketones Urine Blood Urine Nitrate Urine Bilirubin Urine Urobilinogen Ur Leukocyte Esterase Urine RBC (Auto) Urine Microscopic WBC Ur Squamous Epith Cells Digoxin Assessment & Plan - Assessment and Plan (Free Text) Assessment: 82 year old female admitted for dyspnea possibly secondary to acute CHF exacerbation vs COPD exacerbation. Patient previous echo reviewed, no evidence of CHF, EF 65-70%. This is likely secondary to COPD exacerbation given productive cough. Levaquin was started. Repeat echo was done, pending report. Her diabetes and htn are currently controlled. #Dyspnea #DM #HTN #dementia #DVT prophylaxis -Cardiology consult: Dr. Jean, echo pending report -duonebs rtv q4 and prn, monitor for tachycardia -lasix as need -levaquin -solumedrol 40 q 12 <Juan A Larwence - Last Filed: 05/24/17 09:32> Results - Vital Signs Recent Vital Signs: Last Vital Signs Temp 98.1 F 05/24/17 08:01 Pulse 56 L 05/24/17 08:54 Resp 18 05/24/17 08:01 BP 121/65 05/24/17 08:54 Pulse Ox 97 05/24/17 08:01 - Labs Result Diagrams: 05/24/17 05:00 05/24/17 05:00 Labs: Laboratory Results - last 24 hr 05/23/17 05/23/17 05/23/17 05:03 10:32 10:57 WBC RBC Hgb Hct MCV MCH MCHC RDW Plt Count Sodium Potassium Chloride Carbon Dioxide Anion Gap BUN Creatinine Est GFR ( Amer) Est GFR (Non-Af Amer) POC Glucose (mg/dL) 164 H 123 H 95 Random Glucose Calcium NT-Pro-B Natriuret Pep 05/23/17 05/23/17 05/24/17 15:59 21:12 05:00 WBC 14.6 H RBC 3.65 L Hgb 10.7 L Hct 33.2 L MCV 90.9 MCH 29.4 MCHC 32.4 L RDW 18.8 H Plt Count 244 Sodium Potassium Chloride Carbon Dioxide Anion Gap BUN Creatinine Est GFR ( Amer) Est GFR (Non-Af Amer) POC Glucose (mg/dL) 100 107 Random Glucose Calcium NT-Pro-B Natriuret Pep 05/24/17 05/24/17 05:00 05:35 WBC RBC Hgb Hct MCV MCH MCHC RDW Plt Count Sodium 130 L Potassium 3.7 Chloride 90 L Carbon Dioxide 31 H Anion Gap 13 BUN 54 H Creatinine 1.0 Est GFR ( Amer) > 60 Est GFR (Non-Af Amer) 53 POC Glucose (mg/dL) 96 Random Glucose 86 Calcium 9.0 NT-Pro-B Natriuret Pep 2100 H Assessment & Plan (1) CHF (congestive heart failure) Status: Acute Priority: High (2) COPD exacerbation Status: Acute Priority: Low (3) Benign essential HTN Status: Acute (4) Coronary artery disease Status: Acute - Assessment and Plan (Free Text) Plan: I was present during evaluation and discussed with DR Solis re: plans of care and mgt Juan A Lawrence M.D.
[2017-05-15] MEDS ORDERED: Albuterol-Ipratrop 3 mg / 0.5 (3 ml) UD IH PRN (11:14)
[2017-05-15] MEDS: levoFLOXacin 500 mg in D5W 500 MG/100 ML BAG IVPB SCH (11:30)
--- NOTE | 2017-05-15 14:22 | CARD ---
APPROVED REPORT EXAM: Two-dimensional and M-mode echocardiogram with Doppler and color Doppler. Other Information Quality : GoodRhythm : NSR INDICATION Congestive Heart Failure Surgery/Intervention Status/Post Mitral Valve Replacement: Bioprosthetic 2D DIMENSIONS IVSd1.26 (0.7-1.1cm)LVDd4.46 (3.9-5.9cm) LVOT Diameter1.38 (1.8-2.4cm)PWd0.87 (0.7-1.1cm) IVSs1.61 (0.8-1.2cm)LVDs1.91 (2.5-4.0cm) FS (%) 57.2 %PWs2.00 (0.8-1.2cm) M-Mode DIMENSIONS Left Atrium (MM)5.80 (2.5-4.0cm)IVSd1.22 (0.7-1.1cm) Aortic Root2.69 (2.2-3.7cm)LVDd4.58 (4.0-5.6cm) Aortic Cusp Exc.1.82 (1.5-2.0cm)PWd1.29 (0.7-1.1cm) IVSs1.99 cmFS (%) 56 % LVDs1.99 (2.0-3.8cm)PWs1.64 cm Aortic Valve AoV Peak Vmmsvqqu083.5cm/sAoV VTI41.7cmAO Peak GR.27mmHg AO Mean GR.15mmHgAI P 1/2 [id number] Mitral Valve E/A ratio0.0 TDI E/Lateral E'0.0E/Medial E'0.0 Pulmonary Valve PV Peak Gboovxkj519.6cm/s Tricuspid Valve TR Peak [id number]/sRAP [id number] Peak Gr.40mmHg [id number] LEFT VENTRICLE The left ventricle is normal size. There is normal left ventricular wall thickness. Left ventricle systolic function is normal. The Ejection Fraction is 60-65%. There is normal LV segmental wall motion. Could not be assesed. RIGHT VENTRICLE The right ventricle is normal size. There is normal right ventricular wall thickness. The right ventricular systolic function is normal. Pacing lead was seen traversing the tricuspid valve. ATRIA The left atrium is moderately dilated. The right atrium is mildly dilated. AORTIC VALVE The aortic valve is mildly sclerotic. No aortic regurgitation is present. There is no aortic valvular stenosis. MITRAL VALVE Bioprosthesis functioned normally in Mitral position. NA NA There is no mitral valve regurgitation noted. TRICUSPID VALVE The tricuspid valve is normal in structure. There is severe tricuspid regurgitation. Right ventricular systolic pressure is estimated at 61 mmHg. There is severe pulmonary hypertension. PULMONIC VALVE The pulmonary valve is normal in structure and function. There is mild pulmonic valvular regurgitation. GREAT VESSELS The aortic root is normal in size. The IVC was not visualized. PERICARDIAL EFFUSION The pericardium appears normal. <Conclusion> The left ventricle is normal size. There is normal left ventricular wall thickness. There is normal LV segmental wall motion. Left ventricle systolic function is normal. The Ejection Fraction is 60-65%. The left atrium is moderately dilated. The right atrium is mildly dilated. There is severe tricuspid regurgitation. There is severe pulmonary hypertension. Bioprosthesis functioned normally in Mitral position.
[2017-05-15] MEDS: Metoprolol Succinate 25 mg XL Tab PO SCH (14:50)
--- NOTE | 2017-05-15 16:35 | CP.PCM.CON ---
History of Present Illness - History of Present Illness History of Present Illness: I was asked to see patient by Dr. Lawrence. Patient is a 82 year old female with PMH valvular heart disease, HTN CAD, afib, s.p ablation, AICD presents with dyspnea. Patient has COPD and reports progressive cough. The patient denies chest pain. She is currently admitted for COPD exacerbation. Review of Systems - Constitutional Constitutional: absent: As Per HPI, Anorexia, Chills, Daytime Sleepiness, Excessive Sweating, Fatigue, Fever, Frequent Falls, Headache, Increased Appetite , Lethargy, Malaise, Night Sweats, Snoring, Sleep Apnea, Weight Gain, Weight Loss, Weakness, Other - EENT Eyes: absent: As Per HPI, Blind Spots, Blurred Vision, Change in Vision, Decreased Night Vision, Diplopia, Discharge, Dry Eye, Exophthalmos, Floaters, Irritation, Itchy Eyes, Loss of Peripheral Vision, Pain, Photophobia, Requires Corrective Lenses, Sees Flashes, Spots in Vision, Tunnel Vision, Other Visual Disturbances, Loss of Vision, Other Ears: absent: As Per HPI, Decreased Hearing, Ear Discharge, Ear Pain, Tinnitus, Abnormal Hearing, Disequilibrium, Dizziness, Other Nose/Mouth/Throat: absent: As Per HPI, Epistaxis, Nasal Congestion, Nasal Discharge, Nasal Obstruction, Nasal Trauma, Nose Pain, Post Nasal Drip, Sinus Pain, Sinus Pressure, Bleeding Gums, Change in Voice, Dental Pain, Dry Mouth, Dysphagia, Halitosis, Hoarsness, Lip Swelling, Mouth Lesions, Mouth Pain, Odynophagia, Sore Throat, Throat Swelling, Tongue Swelling, Facial Pain, Neck Pain, Neck Mass, Other - Breasts Breasts: absent: As Per HPI, Change in Shape, Mass, Pain, Nipple Discharge, Nipple Inversion, Skin Changes, Swelling, Other - Cardiovascular Cardiovascular: absent: As Per HPI, Acrocyanosis, Chest Pain, Chest Pain at Rest , Chest Pain with Activity, Claudication, Diaphoresis, Dyspnea, Dyspnea on Exertion, Edema, Irregular Heart Rhythm, Pain Radiating to Arm/Neck/Jaw, Leg Edema, Leg Ulcers, Lightheadedness, Orthopnea, Palpitations, Paroxysmal Nocturnal Dyspnea, Pedal Edema, Radiating Pain, Rapid Heart Rate, Slow Heart Rate, Syncope, Other - Respiratory Respiratory: Dyspnea, Dyspnea on Exertion - Gastrointestinal Gastrointestinal: absent: As Per HPI, Abdominal Pain, Belching, Bloating, Change in Bowel Habits, Change in Stool Character, Coffee Ground Emesis, Constipation, Cramping, Diarrhea, Dyspepsia, Dysphagia, Early Satiety, Excessive Flatus, Fecal Incontinence, Heartburn, Hematemesis, Hematochezia, Loose Stools, Melena, Nausea, Odynophagia, Temesmus, Vomiting, Other - Genitourinary Genitourinary: absent: As Per HPI, Change in Urinary Stream, Difficulty Urinating, Dysuria, Flank Pain, Hematuria, Pyuria, Nocturia, Urinary Incontinence, Urinary Frequency, Urinary Hesitance, Urinary Urgency, Voiding Freq/Small Amts, Freq UTI, Hx Renal/Bladder Calculi, Hx /Renal Surgery, Bladder Distension, Other - Musculoskeletal Musculoskeletal: absent: As Per HPI, Abnormal Gait, Arthralgias, Atrophy, Back Pain, Deformity, Joint Swelling, Limited Range of Motion, Loss of Height, Muscle Cramps, Muscle Weakness, Myalgias, Neck Pain, Numbness, Radiating Pain into Limb, Stiffness, Tingling, Other - Integumentary Integumentary: absent: As Per HPI, Acne, Alopecia, Bleeding Lesions, Change in Hair, Change in Nails, Change in Pigmentation, Changing Lesions, Dry Skin, Erythema, Furuncle, Hirsutism, Lesions, New Lesions, Non-Healing Lesions, Photosensitivity, Pruritus, Rash, Skin Pain, Skin Ulcer, Sores, Striae, Swelling , Unusual Bruising, Wounds, Jaundice, Other - Neurological Neurological: absent: As Per HPI, Abnormal Gait, Abnormal Hearing, Abnormal Movements, Abnormal Speech, Behavioral Changes, Burning Sensations, Confusion, Convulsions, Disequilibrium, Dizziness, Numbness, Focal Weakness, Frequent Falls , Headaches, Lack of Coordination, Loss of Vision, Memory Loss, Paresthesias, Radicular Pain, Restless Legs, Sensory Deficit, Syncope, Tingling, Tremor, Vertigo, Weakness, Other Visual Disturbances, Other - Psychiatric Psychiatric: absent: As Per HPI, Abnormal Sleep Pattern, Anhedonia, Anxiety, Auditory Hallucinations, Behavioral Changes, Change in Appetite, Change in Libido, Confusion, Depression, Difficulty Concentrating, Hallucinations, Homicidal Ideation, Hopelessness, Irritability, Memory Loss, Mood Swings, Panic Attacks, Paranoia, Suicidal Ideation, Visual Hallucinations, Tactile Hallucinations, Other - Endocrine Endocrine: absent: As Per HPI, Change in Body Appearance, Change in Libido, Cold Intolorance, Deepening of Voice, Excessive Sweating, Fatigue, Flushing, Heat Intolorance, Increase in Ring/Shoe/Hat Size, Palpitations, Polydipsia, Polyphagia, Polyuria, Other - Hematologic/Lymphatic Hematologic: absent: As Per HPI, Easy Bleeding, Easy Bruising, Lymphadenopathy, Other Past Patient History - Infectious Disease Hx of Infectious Diseases: None - Tetanus Immunizations Tetanus Immunization: Unknown - Past Medical History & Family History Past Medical History?: Yes - Past Social History Smoking Status: Never Smoked - CARDIAC Hx Cardiac Disorders: Yes (HTN) Hx Atrial Fibrillation: Yes Hx Cardia Arrhythmia: Yes Hx Congestive Heart Failure: Yes Hx Hypercholesterolemia: Yes Hx Hypertension: Yes Hx Pacemaker: Yes Hx Peripheral Edema: Yes - PULMONARY Hx Asthma: Yes Hx Bronchitis: Yes Hx Chronic Obstructive Pulmonary Disease (COPD): Yes Hx Pneumonia: Yes - NEUROLOGICAL HX Cerebrovascular Accident: Yes Hx Dementia: Yes Hx Parkinson's Disease: Yes Hx Transient Ischemic Attacks (TIA): Yes - HEENT Hx HEENT Problems: No - RENAL Hx Chronic Kidney Disease: No - ENDOCRINE/METABOLIC Hx Diabetes Mellitus Type 2: Yes - HEMATOLOGICAL/ONCOLOGICAL Hx AIDS: No Hx Anemia: Yes Hx Human Immunodeficiency Virus (HIV): No - INTEGUMENTARY Hx Dermatological Problems: No - MUSCULOSKELETAL/RHEUMATOLOGICAL Hx Arthritis: Yes Hx Falls: Yes Hx Rheumatoid Arthritis: No - GASTROINTESTINAL Hx Gastrointestinal Disorders: No - GENITOURINARY/GYNECOLOGICAL Hx Genitourinary Disorders: No - PSYCHIATRIC Hx Psychophysiologic Disorder: No Hx Substance Use: No - SURGICAL HISTORY Hx Appendectomy: Yes Hx Carotid Endarterectomy: Yes Hx Cholecystectomy: Yes Hx Coronary Artery Bypass Graft: Yes - ANESTHESIA Hx Anesthesia: Yes Hx Anesthesia Reactions: No Hx Malignant Hyperthermia: No Meds Allergies/Adverse Reactions: Allergies Allergy/AdvReac Type Severity Reaction Status Date / Time No Known Allergies Allergy Verified 02/15/17 00:37 - Medications Medications: Current Medications Albuterol/Ipratropium (Duoneb 3 Mg/0.5 Mg (3 Ml) Ud) 3 ml IH RQ4 PRN PRN Reason: Shortness of Breath Albuterol/Ipratropium (Duoneb 3 Mg/0.5 Mg (3 Ml) Ud) 3 ml INH RQ4 [facility] Last Admin: 09/12/17 15:16 Dose: 3 ml Clopidogrel Bisulfate (Plavix) 75 mg PO DAILY [facility] Last Admin: 05/15/17 09:49 Dose: 75 mg Digoxin (Lanoxin) 0.125 mg PO DAILY [facility] Last Admin: 05/15/17 09:51 Dose: 0.125 mg Ferrous Sulfate (Feosol) 325 mg PO DAILY [facility] Last Admin: 05/15/17 09:48 Dose: 325 mg Furosemide (Lasix) 40 mg IVP DAILY [facility] Last Admin: 05/15/17 09:49 Dose: 40 mg Gabapentin (Neurontin) 300 mg PO HS [facility] Last Admin: 05/14/17 23:39 Dose: 300 mg Home Med (Memantine Hcl [Namenda Xr]) 14 mg PO DAILY [facility] Methylprednisolone 40 mg/ (Sodium Chloride) 50 mls @ 100 mls/hr IVPB Q12 [facility] Last Admin: 05/15/17 09:56 Dose: 100 mls/hr Levofloxacin/Dextrose (Levaquin 500mg) 500 mg in 100 mls @ 100 mls/hr IVPB DAILY [facility] Last Admin: 05/15/17 11:30 Dose: 100 mls/hr Metolazone (Zaroxolyn) 2.5 mg PO DAILY [facility] Last Admin: 05/15/17 09:47 Dose: 2.5 mg Metoprolol Succinate (Toprol Xl) 25 mg PO DAILY [facility] Last Admin: 05/15/17 14:50 Dose: 25 mg Multivitamins/Minerals (Therapeutic-M Tab) 1 tab PO DAILY [facility] Last Admin: 05/15/17 09:47 Dose: 1 tab Pantoprazole Sodium (Protonix Ec Tab) 40 mg PO DAILY [facility] Last Admin: 05/15/17 09:48 Dose: 40 mg Potassium Chloride (K-Dur 20 Meq Er Tab) 20 meq PO DAILY [facility] Last Admin: 05/15/17 09:51 Dose: 20 meq Rivaroxaban (Xarelto) 15 mg PO DAILY [facility] PRN Reason: Protocol Last Admin: 05/15/17 09:50 Dose: 15 mg Fluticasone/Salmeterol (Advair Diskus 250/50) 1 puff IH Q12 [facility] Last Admin: 05/15/17 09:44 Dose: 1 puff Sitagliptin Phosphate (Januvia) 50 mg PO DAILY [facility] Last Admin: 05/15/17 09:47 Dose: 50 mg Valsartan (Diovan) 160 mg PO DAILY [facility] Last Admin: 05/15/17 09:46 Dose: 160 mg Zolpidem Tartrate (Ambien) 5 mg PO [facility] Last Admin: 05/14/17 23:40 Dose: 5 mg Physical Exam - Constitutional Appears: Non-toxic - Head Exam Head Exam: NORMAL INSPECTION - Eye Exam Eye Exam: Normal appearance - ENT Exam ENT Exam: Mucous Membranes Moist - Neck Exam Neck exam: Positive for: Full Rom - Respiratory Exam Respiratory Exam: Decreased Breath Sounds, Wheezes - Cardiovascular Exam Cardiovascular Exam: REGULAR RHYTHM - GI/Abdominal Exam GI & Abdominal Exam: Normal Bowel Sounds - Rectal Exam Rectal Exam: Deferred - Extremities Exam Extremities exam: Positive for: pedal edema - Back Exam Back exam: NORMAL INSPECTION - Neurological Exam Neurological exam: Alert, Oriented x3 - Psychiatric Exam Psychiatric exam: Normal Affect - Skin Skin Exam: Normal Color Results - Vital Signs Recent Vital Signs: Last Vital Signs Temp 97.9 F 05/15/17 16:02 Pulse 81 05/15/17 16:02 Resp 16 05/15/17 16:02 BP 112/61 05/15/17 16:02 Pulse Ox 100 05/15/17 16:02 - Labs Result Diagrams: 05/15/17 05:55 05/15/17 05:55 Labs: Laboratory Results - last 24 hr 05/14/17 05/14/17 05/14/17 20:30 20:37 20:41 WBC RBC Hgb Hct MCV MCH MCHC RDW Plt Count pCO2 40 pO2 130 H HCO3 32.0 H ABG pH 7.52 H ABG Total CO2 33.9 H ABG O2 Saturation 100.8 H ABG O2 Content 14.7 L ABG Base Excess 9.1 H ABG Hemoglobin 10.7 L ABG Carboxyhemoglobin 2.9 H POC ABG HHb (Measured) -0.8 L ABG Methemoglobin 2.1 ABG O2 Capacity 14.6 L Kermit Test Yes A-a O2 Difference 48.0 Hgb O2 Saturation 95.8 FiO2 32.0 Sodium Potassium Chloride Carbon Dioxide Anion Gap BUN Creatinine Est GFR ( Amer) Est GFR (Non-Af Amer) POC Glucose (mg/dL) Random Glucose Calcium Total Bilirubin AST ALT Alkaline Phosphatase NT-Pro-B Natriuret Pep Total Protein Albumin Globulin Albumin/Globulin Ratio Urine Color Yellow Urine Clarity Slighty-cloudy Urine pH 7.0 Ur Specific Beattie 1.013 Urine Protein 30 Urine Glucose (UA) Neg Urine Ketones Negative Urine Blood Negative Urine Nitrate Negative Urine Bilirubin Negative Urine Urobilinogen 0.2-1.0 Ur Leukocyte Esterase Neg Urine RBC (Auto) 2 Urine Microscopic WBC 3 Ur Squamous Epith Cells 2 Digoxin 0.9 05/14/17 05/15/17 05/15/17 22:47 05:28 05:55 WBC 7.0 RBC 3.36 L Hgb 9.8 L Hct 30.6 L MCV 91.2 D MCH 29.3 MCHC 32.1 L RDW 18.6 H Plt Count 226 pCO2 pO2 HCO3 ABG pH ABG Total CO2 ABG O2 Saturation ABG O2 Content ABG Base Excess ABG Hemoglobin ABG Carboxyhemoglobin POC ABG HHb (Measured) ABG Methemoglobin ABG O2 Capacity Kermit Test A-a O2 Difference Hgb O2 Saturation FiO2 Sodium Potassium Chloride Carbon Dioxide Anion Gap BUN Creatinine Est GFR ( Amer) Est GFR (Non-Af Amer) POC Glucose (mg/dL) 168 H 170 H Random Glucose Calcium Total Bilirubin AST ALT Alkaline Phosphatase NT-Pro-B Natriuret Pep Total Protein Albumin Globulin Albumin/Globulin Ratio Urine Color Urine Clarity Urine pH Ur Specific Beattie Urine Protein Urine Glucose (UA) Urine Ketones Urine Blood Urine Nitrate Urine Bilirubin Urine Urobilinogen Ur Leukocyte Esterase Urine RBC (Auto) Urine Microscopic WBC Ur Squamous Epith Cells Digoxin 05/15/17 05/15/17 05:55 11:18 WBC RBC Hgb Hct MCV MCH MCHC RDW Plt Count pCO2 pO2 HCO3 ABG pH ABG Total CO2 ABG O2 Saturation ABG O2 Content ABG Base Excess ABG Hemoglobin ABG Carboxyhemoglobin POC ABG HHb (Measured) ABG Methemoglobin ABG O2 Capacity Kermit Test A-a O2 Difference Hgb O2 Saturation FiO2 Sodium 139 Potassium 4.3 Chloride 99 Carbon Dioxide 31 H Anion Gap 13 BUN 33 H Creatinine 0.9 Est GFR ( Amer) > 60 Est GFR (Non-Af Amer) 60 POC Glucose (mg/dL) 214 H Random Glucose 149 H Calcium 9.1 Total Bilirubin 1.3 AST 110 H ALT 62 H Alkaline Phosphatase 83 NT-Pro-B Natriuret Pep 7900 H Total Protein 6.2 L Albumin 3.4 L Globulin 2.7 Albumin/Globulin Ratio 1.3 Urine Color Urine Clarity Urine pH Ur Specific Beattie Urine Protein Urine Glucose (UA) Urine Ketones Urine Blood Urine Nitrate Urine Bilirubin Urine Urobilinogen Ur Leukocyte Esterase Urine RBC (Auto) Urine Microscopic WBC Ur Squamous Epith Cells Digoxin - EKG Data EKG Interpreted by: Myself Assessment & Plan (1) CHF (congestive heart failure) Assessment and Plan: there is a mild element of heart failure. recommend continued medical therapy. Status: Acute Priority: High (2) COPD exacerbation Assessment and Plan: continue bronchodilator therapy Status: Acute Priority: Low (3) Chronic congestive heart failure Assessment and Plan: continue diuretic therapy. Status: Acute
[2017-05-16] MEDS: Albuterol-Ipratrop 3 mg / 0.5 (3 ml) UD INH SCH ×5 (04:21→19:29)
--- NOTE | 2017-05-16 07:14 | PQF GENQUE ---
This form is a permanent part of the medical record 05/16/17 Dr. Lawrence, Please clarify the TYPE of Atrial Fibrillation. Documentation of a history of Atrial Fibrillation. EKG not available in EMR. Medications include: Lanoxin, Xarelto, Plavix. Clarification of your documentation is requested to better reflect the severity of illness and intensity of treatment of your patient. PHYSICIAN'S RESPONSE Please clarify the type of atrial fibrillation: [] Chronic [] Paroxysmal [] Permanent [] Persistent [] Other (please specify type) [] Clinically unable to determine [] Unknown Based on your medical judgment of the clinical indicators outlined above please clarify the following: [] Practitioner response [] If unable to determine, please check the box, sign and date. Present On Admission (POA) Indicator: [] Present at the time of admission [] Not present at the time of admission [] Clinically Undetermined In responding to this query, please exercise your independent professional judgment. The fact that a question is asked does not imply that any particular answer is desired or expected. Thank you for your clarification on this documentation. If you have any questions please call:ext [phone] * Thank you, Brenda Hendrickson RN CDMP MTDD
[2017-05-16 07:27] LABS: HEMATOCRIT 30.6 % (34.0-47.0); MEAN CELL VOLUME 92.3 fl (81.0-99.0); MEAN CORPUSCULAR HEMOGLOBIN 29.9 pg (27.0-31.0); MEAN CORPUSCULAR HGB CONC 32.4 g/dL (33.0-37.0); RED CELL DISTRIBUTION WIDTH 19.3 % (11.5-14.5); WHITE BLOOD COUNT 10.6 K/uL (4.8-10.8)
[2017-05-16 07:37] LABS: ALB/GLOB RATIO 1.3 (1.0-2.1); BILIRUBIN,TOTAL 0.7 mg/dl (0.2-1.3); CALCIUM 9.2 mg/dL (8.4-10.2); POTASSIUM 3.5 MMOL/L (3.6-5.0); TOTAL PROTEIN 6.1 G/DL (6.3-8.2)
--- NOTE | 2017-05-16 07:38 | PQF CHF ---
This form is a permanent part of the medical record 05/16/17 Dr. Lawrence, Please clarify the TYPE and Acuity of CHF. Admitted with dyspnea possibly secondary to acute CHF exacerbation vs COPD exacerbation. Cardiology consult with there is a mild element of heart failure ( CHF). ECHO pending. PROBNP 7840. + pitting edema. Medications include: Lasix IV, Diovan, Topamax. Clarification of your documentation is requested to better reflect the severity of illness and intensity of treatment of your patient. Indicators present [x] Diagnosis of CHF and/or history of CHF [x] BNP > 200 [x] Imaging Finding of Pulmonary Edema /Pleural Effusions [] Fluid/Volume Overload [x] Pitting edema [] Ejection Fraction < 40% (Indicative of Systolic Heart Failure) [x] Ejection Fraction > 40% (Indicative of Diastolic Heart Failure) [x] Dyspnea / Orthopenea / Paroxysmal Nocturnal Dyspnea [] Other: Location in the medical record that reflects the above clinical findings: [] Treatment Provided: [x] PHYSICIAN'S RESPONSE Based on your medical judgment of the clinical indicators outlined above, are you treating this patient for a known or suspected: [] Acute CHF [] Systolic [] Diastolic [] Combined [] Chronic CHF [] Systolic [] Diastolic [] Combined [] Acute on Chronic CHF []Systolic [] Diastolic [] Combined [] CHF due hypertension [] Acute systolic []Chronic systolic [] Acute/ chronic systolic [] Other, please indicate: [] [] If Unable to Determine, please check the box, sign and date. Present On Admission (POA) Indicator: [] Present at the time of admission [] Not present at the time of admission [] Clinically Undetermined In responding to this query, please exercise your independent professional judgment. The fact that a question is asked does not imply that any particular answer is desired or expected. Thank you for your clarification on this documentation. If you have any questions please call:ext [phone] * Thank you, Brenda Hendrickson RN CD[facility]
[2017-05-16] MEDS: methylPREDNISolone 40 MG in Sodium Chloride 0.9% 50 ML IVPB SCH ×2 (09:17→21:02)
[2017-05-16] MEDS: levoFLOXacin 500 mg in D5W 500 MG/100 ML BAG IVPB SCH (09:18)
[2017-05-16] MEDS: Fluticasone-Salmeterol 250-50mcg Diskus IH SCH ×2 (09:20→21:02)
[2017-05-16] MEDS: Potassium Chloride 20 mEq ER Tab PO SCH (09:20)
[2017-05-16] MEDS: Multivitamin With Minerals Tab PO SCH (09:21)
[2017-05-16] MEDS: Pantoprazole 40 mg EC Tab PO SCH (09:21)
[2017-05-16] MEDS: Metoprolol Succinate 25 mg XL Tab PO SCH (09:22)
[2017-05-16] MEDS: Digoxin 125 mcg (0.125 mg) Tab PO SCH (09:22)
--- NOTE | 2017-05-16 10:17 | CP.PCM.PN ---
Subjective - Date & Time of Evaluation Date of Evaluation: 05/16/17 Time of Evaluation: 10:17 - Subjective Subjective: Patient continues to have SOB Has no fever. Objective - Vital Signs/Intake and Output Vital Signs (last 24 hours): Temp Pulse Resp BP Pulse Ox 97.7 F 70 18 111/63 96 05/16/17 07:55 05/16/17 09:22 05/16/17 07:55 05/16/17 09:23 05/16/17 07:55 - Medications Medications: Current Medications Albuterol/Ipratropium (Duoneb 3 Mg/0.5 Mg (3 Ml) Ud) 3 ml IH RQ4 PRN PRN Reason: Shortness of Breath Albuterol/Ipratropium (Duoneb 3 Mg/0.5 Mg (3 Ml) Ud) 3 ml INH RQ4 [facility] Last Admin: 05/16/17 07:51 Dose: 3 ml Clopidogrel Bisulfate (Plavix) 75 mg PO DAILY [facility] Last Admin: 05/16/17 09:21 Dose: 75 mg Digoxin (Lanoxin) 0.125 mg PO DAILY [facility] Last Admin: 05/16/17 09:22 Dose: 0.125 mg Docusate Sodium (Colace) 100 mg PO DAILY [facility] Ferrous Sulfate (Feosol) 325 mg PO DAILY [facility] Last Admin: 05/16/17 09:22 Dose: 325 mg Furosemide (Lasix) 40 mg IVP DAILY [facility] Last Admin: 05/16/17 09:23 Dose: 40 mg Gabapentin (Neurontin) 300 mg PO HS [facility] Last Admin: 05/15/17 22:14 Dose: 300 mg Home Med (Memantine Hcl [Namenda Xr]) 14 mg PO DAILY [facility] Methylprednisolone 40 mg/ (Sodium Chloride) 50 mls @ 100 mls/hr IVPB Q12 [facility] Last Admin: 05/16/17 09:17 Dose: 100 mls/hr Levofloxacin/Dextrose (Levaquin 500mg) 500 mg in 100 mls @ 100 mls/hr IVPB DAILY [facility] Last Admin: 05/16/17 09:18 Dose: 100 mls/hr Lactulose (Enulose) 10 gm PO DAILY PRN PRN Reason: Constipation Metolazone (Zaroxolyn) 2.5 mg PO DAILY [facility] Last Admin: 05/15/17 09:47 Dose: 2.5 mg Metoprolol Succinate (Toprol Xl) 25 mg PO DAILY [facility] Last Admin: 05/16/17 09:22 Dose: 25 mg Multivitamins/Minerals (Therapeutic-M Tab) 1 tab PO DAILY [facility] Last Admin: 05/16/17 09:21 Dose: 1 tab Pantoprazole Sodium (Protonix Ec Tab) 40 mg PO DAILY [facility] Last Admin: 05/16/17 09:21 Dose: 40 mg Potassium Chloride (K-Dur 20 Meq Er Tab) 20 meq PO DAILY [facility] Last Admin: 05/16/17 09:20 Dose: 20 meq Rivaroxaban (Xarelto) 15 mg PO DAILY [facility] PRN Reason: Protocol Last Admin: 05/16/17 09:20 Dose: 15 mg Fluticasone/Salmeterol (Advair Diskus 250/50) 1 puff IH Q12 [facility] Last Admin: 05/16/17 09:20 Dose: Not Given Sitagliptin Phosphate (Januvia) 50 mg PO DAILY [facility] Last Admin: 05/16/17 09:21 Dose: 50 mg Valsartan (Diovan) 160 mg PO DAILY [facility] Last Admin: 05/16/17 09:21 Dose: 160 mg Zolpidem Tartrate (Ambien) 5 mg PO HS [facility] Last Admin: 05/15/17 22:14 Dose: 5 mg - Labs Labs: 05/16/17 06:10 05/16/17 06:10
[2017-05-16] MEDS: metOLazone 2.5 MG TAB PO SCH (10:24)
[2017-05-16] MEDS: Lactulose 10 gm/15 ml Syrup PO PRN (16:22)
[2017-05-17] MEDS: Albuterol-Ipratrop 3 mg / 0.5 (3 ml) UD INH SCH ×7 (00:01→23:56)
[2017-05-17] MEDS: Potassium Chloride 20 mEq ER Tab PO SCH (09:21)
[2017-05-17] MEDS: Lactulose 10 gm/15 ml Syrup PO PRN (09:21)
[2017-05-17] MEDS: Fluticasone-Salmeterol 250-50mcg Diskus IH SCH ×2 (09:21→21:26)
[2017-05-17] MEDS: Metoprolol Succinate 25 mg XL Tab PO SCH (09:22)
[2017-05-17] MEDS: Pantoprazole 40 mg EC Tab PO SCH (09:22)
[2017-05-17] MEDS: Multivitamin With Minerals Tab PO SCH (09:22)
[2017-05-17] MEDS: metOLazone 2.5 MG TAB PO SCH (09:23)
[2017-05-17] MEDS: Digoxin 125 mcg (0.125 mg) Tab PO SCH (09:23)
[2017-05-17] MEDS: methylPREDNISolone 40 MG in Sodium Chloride 0.9% 50 ML IVPB SCH ×2 (09:24→21:27)
[2017-05-17] MEDS: levoFLOXacin 500 mg in D5W 500 MG/100 ML BAG IVPB SCH (09:25)
--- NOTE | 2017-05-17 10:26 | PQF CHF ---
This form is a permanent part of the medical record 05/17/17 Dr. Jean, Please clarify the type and acuity of CHF in your notes. Admitted with dyspnea possibly secondary to acute CHF exacerbation vs COPD exacerbation. Cardiology consult with there is a mild element of heart failure. Echo completed. ProBNP 7840, + pitting edema. Medications include: Lasix IV, Diovan, Lanoxin. Clarification of your documentation is requested to better reflect the severity of illness and intensity of treatment of your patient. Indicators present [x] Diagnosis of CHF and/or history of CHF [x] BNP > 200 [x] Imaging Finding of Pulmonary Edema /Pleural Effusions [] Fluid/Volume Overload [x] Pitting edema [] Ejection Fraction < 40% (Indicative of Systolic Heart Failure) [x] Ejection Fraction > 40% (Indicative of Diastolic Heart Failure) See report additional findings [x] Dyspnea / Orthopenea / Paroxysmal Nocturnal Dyspnea [] Other: Location in the medical record that reflects the above clinical findings: [] Treatment Provided: [x] PHYSICIAN'S RESPONSE Based on your medical judgment of the clinical indicators outlined above, are you treating this patient for a known or suspected: [] Acute CHF [] Systolic [] Diastolic [] Combined [] Chronic CHF [] Systolic [] Diastolic [] Combined [] Acute on Chronic CHF []Systolic [] Diastolic [] Combined [] CHF due hypertension [] Acute systolic []Chronic systolic [] Acute /chronic systolic [] Other, please indicate: [] [] If Unable to Determine, please check the box, sign and date. Present On Admission (POA) Indicator: [] Present at the time of admission [] Not present at the time of admission [] Clinically Undetermined In responding to this query, please exercise your independent professional judgment. The fact that a question is asked does not imply that any particular answer is desired or expected. Thank you for your clarification on this documentation. If you have any questions please call:extension [phone] * Thank you, Brenda Hendrickson RN CD[facility]
--- NOTE | 2017-05-17 11:22 | CP.PCM.CON ---
History of Present Illness - History of Present Illness History of Present Illness: Patient feels better. no chest pain. less dyspnea. Review of Systems - Constitutional Constitutional: absent: As Per HPI, Anorexia, Chills, Daytime Sleepiness, Excessive Sweating, Fatigue, Fever, Frequent Falls, Headache, Increased Appetite , Lethargy, Malaise, Night Sweats, Snoring, Sleep Apnea, Weight Gain, Weight Loss, Weakness, Other - EENT Ears: absent: As Per HPI, Decreased Hearing, Ear Discharge, Ear Pain, Tinnitus, Abnormal Hearing, Disequilibrium, Dizziness, Other Nose/Mouth/Throat: absent: As Per HPI, Epistaxis, Nasal Congestion, Nasal Discharge, Nasal Obstruction, Nasal Trauma, Nose Pain, Post Nasal Drip, Sinus Pain, Sinus Pressure, Bleeding Gums, Change in Voice, Dental Pain, Dry Mouth, Dysphagia, Halitosis, Hoarsness, Lip Swelling, Mouth Lesions, Mouth Pain, Odynophagia, Sore Throat, Throat Swelling, Tongue Swelling, Facial Pain, Neck Pain, Neck Mass, Other - Cardiovascular Cardiovascular: absent: As Per HPI, Acrocyanosis, Chest Pain, Chest Pain at Rest , Chest Pain with Activity, Claudication, Diaphoresis, Dyspnea, Dyspnea on Exertion, Edema, Irregular Heart Rhythm, Pain Radiating to Arm/Neck/Jaw, Leg Edema, Leg Ulcers, Lightheadedness, Orthopnea, Palpitations, Paroxysmal Nocturnal Dyspnea, Pedal Edema, Radiating Pain, Rapid Heart Rate, Slow Heart Rate, Syncope, Other - Respiratory Respiratory: Cough, Dyspnea - Gastrointestinal Gastrointestinal: absent: As Per HPI, Abdominal Pain, Belching, Bloating, Change in Bowel Habits, Change in Stool Character, Coffee Ground Emesis, Constipation, Cramping, Diarrhea, Dyspepsia, Dysphagia, Early Satiety, Excessive Flatus, Fecal Incontinence, Heartburn, Hematemesis, Hematochezia, Loose Stools, Melena, Nausea, Odynophagia, Temesmus, Vomiting, Other - Genitourinary Genitourinary: absent: As Per HPI, Change in Urinary Stream, Difficulty Urinating, Dysuria, Flank Pain, Hematuria, Pyuria, Nocturia, Urinary Incontinence, Urinary Frequency, Urinary Hesitance, Urinary Urgency, Voiding Freq/Small Amts, Freq UTI, Hx Renal/Bladder Calculi, Hx /Renal Surgery, Bladder Distension, Other - Musculoskeletal Musculoskeletal: absent: As Per HPI, Abnormal Gait, Arthralgias, Atrophy, Back Pain, Deformity, Joint Swelling, Limited Range of Motion, Loss of Height, Muscle Cramps, Muscle Weakness, Myalgias, Neck Pain, Numbness, Radiating Pain into Limb, Stiffness, Tingling, Other - Neurological Neurological: absent: As Per HPI, Abnormal Gait, Abnormal Hearing, Abnormal Movements, Abnormal Speech, Behavioral Changes, Burning Sensations, Confusion, Convulsions, Disequilibrium, Dizziness, Numbness, Focal Weakness, Frequent Falls , Headaches, Lack of Coordination, Loss of Vision, Memory Loss, Paresthesias, Radicular Pain, Restless Legs, Sensory Deficit, Syncope, Tingling, Tremor, Vertigo, Weakness, Other Visual Disturbances, Other - Psychiatric Psychiatric: absent: As Per HPI, Abnormal Sleep Pattern, Anhedonia, Anxiety, Auditory Hallucinations, Behavioral Changes, Change in Appetite, Change in Libido, Confusion, Depression, Difficulty Concentrating, Hallucinations, Homicidal Ideation, Hopelessness, Irritability, Memory Loss, Mood Swings, Panic Attacks, Paranoia, Suicidal Ideation, Visual Hallucinations, Tactile Hallucinations, Other - Endocrine Endocrine: absent: As Per HPI, Change in Body Appearance, Change in Libido, Cold Intolorance, Deepening of Voice, Excessive Sweating, Fatigue, Flushing, Heat Intolorance, Increase in Ring/Shoe/Hat Size, Palpitations, Polydipsia, Polyphagia, Polyuria, Other - Hematologic/Lymphatic Hematologic: absent: As Per HPI, Easy Bleeding, Easy Bruising, Lymphadenopathy, Other Past Patient History - Infectious Disease Hx of Infectious Diseases: None - Tetanus Immunizations Tetanus Immunization: Unknown - Past Medical History & Family History Past Medical History?: Yes - Past Social History Smoking Status: Never Smoked - CARDIAC Hx Cardiac Disorders: Yes (HTN) Hx Atrial Fibrillation: Yes Hx Cardia Arrhythmia: Yes Hx Congestive Heart Failure: Yes Hx Hypercholesterolemia: Yes Hx Hypertension: Yes Hx Pacemaker: Yes Hx Peripheral Edema: Yes - PULMONARY Hx Asthma: Yes Hx Bronchitis: Yes Hx Chronic Obstructive Pulmonary Disease (COPD): Yes Hx Pneumonia: Yes - NEUROLOGICAL HX Cerebrovascular Accident: Yes Hx Dementia: Yes Hx Parkinson's Disease: Yes Hx Transient Ischemic Attacks (TIA): Yes - HEENT Hx HEENT Problems: No - RENAL Hx Chronic Kidney Disease: No - ENDOCRINE/METABOLIC Hx Diabetes Mellitus Type 2: Yes - HEMATOLOGICAL/ONCOLOGICAL Hx AIDS: No Hx Anemia: Yes Hx Human Immunodeficiency Virus (HIV): No - INTEGUMENTARY Hx Dermatological Problems: No - MUSCULOSKELETAL/RHEUMATOLOGICAL Hx Arthritis: Yes Hx Falls: Yes Hx Rheumatoid Arthritis: No - GASTROINTESTINAL Hx Gastrointestinal Disorders: No - GENITOURINARY/GYNECOLOGICAL Hx Genitourinary Disorders: No - PSYCHIATRIC Hx Psychophysiologic Disorder: No Hx Substance Use: No - SURGICAL HISTORY Hx Appendectomy: Yes Hx Carotid Endarterectomy: Yes Hx Cholecystectomy: Yes Hx Coronary Artery Bypass Graft: Yes - ANESTHESIA Hx Anesthesia: Yes Hx Anesthesia Reactions: No Hx Malignant Hyperthermia: No Meds Allergies/Adverse Reactions: Allergies Allergy/AdvReac Type Severity Reaction Status Date / Time No Known Allergies Allergy Verified 02/15/17 00:37 - Medications Medications: Current Medications Albuterol/Ipratropium (Duoneb 3 Mg/0.5 Mg (3 Ml) Ud) 3 ml IH RQ4 PRN PRN Reason: Shortness of Breath Albuterol/Ipratropium (Duoneb 3 Mg/0.5 Mg (3 Ml) Ud) 3 ml INH RQ4 [facility] Last Admin: 05/17/17 08:04 Dose: 3 ml Clopidogrel Bisulfate (Plavix) 75 mg PO DAILY [facility] Last Admin: 05/17/17 09:22 Dose: 75 mg Digoxin (Lanoxin) 0.125 mg PO DAILY [facility] Last Admin: 05/17/17 09:23 Dose: 0.125 mg Docusate Sodium (Colace) 100 mg PO DAILY [facility] Last Admin: 05/17/17 09:20 Dose: 100 mg Ferrous Sulfate (Feosol) 325 mg PO DAILY [facility] Last Admin: 05/17/17 09:21 Dose: 325 mg Furosemide (Lasix) 40 mg IVP DAILY [facility] Last Admin: 05/17/17 09:23 Dose: 40 mg Gabapentin (Neurontin) 300 mg PO HS [facility] Last Admin: 05/16/17 21:08 Dose: 300 mg Home Med (Memantine Hcl [Namenda Xr]) 14 mg PO DAILY [facility] Methylprednisolone 40 mg/ (Sodium Chloride) 50 mls @ 100 mls/hr IVPB Q12 [facility] Last Admin: 05/17/17 09:24 Dose: 100 mls/hr Levofloxacin/Dextrose (Levaquin 500mg) 500 mg in 100 mls @ 100 mls/hr IVPB DAILY [facility] Last Admin: 05/17/17 09:25 Dose: 100 mls/hr Lactulose (Enulose) 10 gm PO DAILY PRN PRN Reason: Constipation Last Admin: 05/17/17 09:21 Dose: 10 gm Metolazone (Zaroxolyn) 2.5 mg PO DAILY [facility] Last Admin: 05/17/17 09:23 Dose: 2.5 mg Metoprolol Succinate (Toprol Xl) 25 mg PO DAILY [facility] Last Admin: 05/17/17 09:22 Dose: 25 mg Multivitamins/Minerals (Therapeutic-M Tab) 1 tab PO DAILY [facility] Last Admin: 05/17/17 09:22 Dose: 1 tab Pantoprazole Sodium (Protonix Ec Tab) 40 mg PO DAILY [facility] Last Admin: 05/17/17 09:22 Dose: 40 mg Potassium Chloride (K-Dur 20 Meq Er Tab) 20 meq PO DAILY [facility] Last Admin: 05/17/17 09:21 Dose: 20 meq Rivaroxaban (Xarelto) 15 mg PO DAILY [facility] PRN Reason: Protocol Last Admin: 05/17/17 09:22 Dose: 15 mg Fluticasone/Salmeterol (Advair Diskus 250/50) 1 puff IH Q12 [facility] Last Admin: 05/17/17 09:21 Dose: 1 puff Sitagliptin Phosphate (Januvia) 50 mg PO DAILY [facility] Last Admin: 05/17/17 09:23 Dose: 50 mg Valsartan (Diovan) 160 mg PO DAILY [facility] Last Admin: 05/17/17 09:20 Dose: 160 mg Zolpidem Tartrate (Ambien) 5 mg PO HS [facility] Last Admin: 05/16/17 21:10 Dose: 5 mg Physical Exam - Constitutional Appears: Non-toxic - Head Exam Head Exam: NORMAL INSPECTION - Eye Exam Eye Exam: Normal appearance - ENT Exam ENT Exam: Mucous Membranes Moist - Neck Exam Neck exam: Positive for: Full Rom - Respiratory Exam Respiratory Exam: NORMAL BREATHING PATTERN - Cardiovascular Exam Cardiovascular Exam: REGULAR RHYTHM - GI/Abdominal Exam GI & Abdominal Exam: Normal Bowel Sounds - Rectal Exam Rectal Exam: Deferred - Extremities Exam Extremities exam: Positive for: pedal edema - Back Exam Back exam: NORMAL INSPECTION - Neurological Exam Neurological exam: Alert, Oriented x3 - Psychiatric Exam Psychiatric exam: Normal Affect - Skin Skin Exam: Normal Color Results - Vital Signs Recent Vital Signs: Last Vital Signs Temp 97.5 F L 05/17/17 07:49 Pulse 75 05/17/17 09:22 Resp 18 05/17/17 07:49 BP 101/61 05/17/17 09:23 Pulse Ox 95 05/17/17 07:49 - Labs Result Diagrams: 05/16/17 06:10 05/16/17 06:10 Labs: Laboratory Results - last 24 hr 05/16/17 05/16/17 05/17/17 15:47 21:14 05:13 POC Glucose (mg/dL) 147 H 179 H 143 H 05/17/17 10:51 POC Glucose (mg/dL) 148 H - EKG Data EKG shows normal: Sinus rhythm Assessment & Plan (1) CHF (congestive heart failure) Assessment and Plan: chronic. recommend continued medical therapy and bronchodilator Status: Acute Priority: High (2) COPD exacerbation Status: Acute Priority: Low (3) Chronic congestive heart failure Status: Acute
[2017-05-18] MEDS: Albuterol-Ipratrop 3 mg / 0.5 (3 ml) UD INH SCH ×5 (04:02→19:14)
[2017-05-18 06:29] LABS: CALCIUM 8.9 mg/dL (8.4-10.2); POTASSIUM 3.8 MMOL/L (3.6-5.0)
[2017-05-18 06:45] LABS: MEAN CELL VOLUME 91.3 fl (81.0-99.0); MEAN CORPUSCULAR HEMOGLOBIN 29.3 pg (27.0-31.0); MEAN CORPUSCULAR HGB CONC 32.1 g/dL (33.0-37.0); RED CELL DISTRIBUTION WIDTH 18.6 % (11.5-14.5); WHITE BLOOD COUNT 9.8 K/uL (4.8-10.8)
[2017-05-18] MEDS: Lactulose 10 gm/15 ml Syrup PO PRN (08:52)
[2017-05-18] MEDS: metOLazone 2.5 MG TAB PO SCH (08:53)
[2017-05-18] MEDS: Multivitamin With Minerals Tab PO SCH (08:53)
[2017-05-18] MEDS: Potassium Chloride 20 mEq ER Tab PO SCH (08:53)
[2017-05-18] MEDS: Metoprolol Succinate 25 mg XL Tab PO SCH (08:55)
[2017-05-18] MEDS: methylPREDNISolone 40 MG in Sodium Chloride 0.9% 50 ML IVPB SCH ×2 (08:55→21:12)
[2017-05-18] MEDS: Digoxin 125 mcg (0.125 mg) Tab PO SCH (08:56)
[2017-05-18] MEDS: Pantoprazole 40 mg EC Tab PO SCH (08:56)
[2017-05-18] MEDS: Fluticasone-Salmeterol 250-50mcg Diskus IH SCH ×2 (08:58→21:13)
[2017-05-18] MEDS: levoFLOXacin 500 mg in D5W 500 MG/100 ML BAG IVPB SCH (09:04)
--- NOTE | 2017-05-18 11:01 | CP.PCM.PN ---
Subjective - Date & Time of Evaluation Date of Evaluation: 05/17/17 Time of Evaluation: 11:00 - Subjective Subjective: Patient still feels very weak and has SOB. Has slight cough Probnp is elevated. Objective - Vital Signs/Intake and Output Vital Signs (last 24 hours): Temp Pulse Resp BP Pulse Ox 98.7 F 61 18 110/52 L 95 05/18/17 09:00 05/18/17 09:00 05/18/17 09:00 05/18/17 09:00 05/18/17 09:00 - Medications Medications: Current Medications Acetaminophen (Tylenol 325mg Tab) 650 mg PO Q4 PRN PRN Reason: Pain, Mild (1-3) Last Admin: 05/17/17 21:26 Dose: 650 mg Albuterol/Ipratropium (Duoneb 3 Mg/0.5 Mg (3 Ml) Ud) 3 ml IH RQ4 PRN PRN Reason: Shortness of Breath Albuterol/Ipratropium (Duoneb 3 Mg/0.5 Mg (3 Ml) Ud) 3 ml INH RQ4 [facility] Last Admin: 05/18/17 07:47 Dose: 3 ml Clopidogrel Bisulfate (Plavix) 75 mg PO DAILY [facility] Last Admin: 05/18/17 08:56 Dose: 75 mg Digoxin (Lanoxin) 0.125 mg PO DAILY [facility] Last Admin: 05/18/17 08:56 Dose: 0.125 mg Docusate Sodium (Colace) 100 mg PO DAILY [facility] Last Admin: 05/18/17 08:57 Dose: 100 mg Ferrous Sulfate (Feosol) 325 mg PO DAILY [facility] Last Admin: 05/18/17 08:53 Dose: 325 mg Furosemide (Lasix) 40 mg IVP DAILY [facility] Last Admin: 05/18/17 08:57 Dose: 40 mg Furosemide (Lasix) 20 mg IV DAILY [facility] Gabapentin (Neurontin) 300 mg PO HS [facility] Last Admin: 05/17/17 21:27 Dose: 300 mg Home Med (Memantine Hcl [Namenda Xr]) 14 mg PO DAILY [facility] Methylprednisolone 40 mg/ (Sodium Chloride) 50 mls @ 100 mls/hr IVPB Q12 [facility] Last Admin: 05/18/17 08:55 Dose: 100 mls/hr Levofloxacin/Dextrose (Levaquin 500mg) 500 mg in 100 mls @ 100 mls/hr IVPB DAILY [facility] Last Admin: 05/18/17 09:04 Dose: 100 mls/hr Lactulose (Enulose) 10 gm PO DAILY PRN PRN Reason: Constipation Last Admin: 05/18/17 08:52 Dose: 10 gm Metolazone (Zaroxolyn) 2.5 mg PO DAILY [facility] Last Admin: 05/18/17 08:53 Dose: 2.5 mg Metoprolol Succinate (Toprol Xl) 25 mg PO DAILY [facility] Last Admin: 05/18/17 08:55 Dose: 25 mg Multivitamins/Minerals (Therapeutic-M Tab) 1 tab PO DAILY [facility] Last Admin: 05/18/17 08:53 Dose: 1 tab Pantoprazole Sodium (Protonix Ec Tab) 40 mg PO DAILY [facility] Last Admin: 05/18/17 08:56 Dose: 40 mg Potassium Chloride (K-Dur 20 Meq Er Tab) 20 meq PO DAILY [facility] Last Admin: 05/18/17 08:53 Dose: 20 meq Rivaroxaban (Xarelto) 15 mg PO DAILY [facility] PRN Reason: Protocol Last Admin: 05/18/17 08:53 Dose: 15 mg Fluticasone/Salmeterol (Advair Diskus 250/50) 1 puff IH Q12 [facility] Last Admin: 05/18/17 08:58 Dose: Not Given Sitagliptin Phosphate (Januvia) 50 mg PO DAILY [facility] Last Admin: 05/18/17 08:53 Dose: 50 mg Valsartan (Diovan) 160 mg PO DAILY [facility] Last Admin: 05/18/17 08:57 Dose: 160 mg Zolpidem Tartrate (Ambien) 5 mg PO HS [facility] Last Admin: 05/17/17 21:29 Dose: 5 mg - Labs Labs: 05/18/17 05:40 05/18/17 05:40 - Head Exam Head Exam: NORMAL INSPECTION - Eye Exam Eye Exam: Normal appearance - ENT Exam ENT Exam: Mucous Membranes Moist - Respiratory Exam Respiratory Exam: Decreased Breath Sounds, Rales - GI/Abdominal Exam GI & Abdominal Exam: Normal Bowel Sounds Assessment and Plan (1) COPD exacerbation Status: Acute (2) CHF (congestive heart failure) Status: Acute (3) Pleural effusion on right Status: Acute (4) Acute coronary syndrome Status: Acute
--- NOTE | 2017-05-18 11:02 | CP.PCM.PN ---
Subjective - Date & Time of Evaluation Date of Evaluation: 05/18/17 Time of Evaluation: 11:01 - Subjective Subjective: Patient feels very weak, Still with diffused rales. feels dizzy. Objective - Vital Signs/Intake and Output Vital Signs (last 24 hours): Temp Pulse Resp BP Pulse Ox 98.7 F 61 18 110/52 L 95 05/18/17 09:00 05/18/17 09:00 05/18/17 09:00 05/18/17 09:00 05/18/17 09:00 - Medications Medications: Current Medications Acetaminophen (Tylenol 325mg Tab) 650 mg PO Q4 PRN PRN Reason: Pain, Mild (1-3) Last Admin: 05/17/17 21:26 Dose: 650 mg Albuterol/Ipratropium (Duoneb 3 Mg/0.5 Mg (3 Ml) Ud) 3 ml IH RQ4 PRN PRN Reason: Shortness of Breath Albuterol/Ipratropium (Duoneb 3 Mg/0.5 Mg (3 Ml) Ud) 3 ml INH RQ4 [facility] Last Admin: 05/18/17 07:47 Dose: 3 ml Clopidogrel Bisulfate (Plavix) 75 mg PO DAILY [facility] Last Admin: 05/18/17 08:56 Dose: 75 mg Digoxin (Lanoxin) 0.125 mg PO DAILY [facility] Last Admin: 05/18/17 08:56 Dose: 0.125 mg Docusate Sodium (Colace) 100 mg PO DAILY [facility] Last Admin: 05/18/17 08:57 Dose: 100 mg Ferrous Sulfate (Feosol) 325 mg PO DAILY [facility] Last Admin: 05/18/17 08:53 Dose: 325 mg Furosemide (Lasix) 40 mg IVP DAILY [facility] Last Admin: 05/18/17 08:57 Dose: 40 mg Furosemide (Lasix) 20 mg IV DAILY [facility] Gabapentin (Neurontin) 300 mg PO HS [facility] Last Admin: 05/17/17 21:27 Dose: 300 mg Home Med (Memantine Hcl [Namenda Xr]) 14 mg PO DAILY [facility] Methylprednisolone 40 mg/ (Sodium Chloride) 50 mls @ 100 mls/hr IVPB Q12 [facility] Last Admin: 05/18/17 08:55 Dose: 100 mls/hr Levofloxacin/Dextrose (Levaquin 500mg) 500 mg in 100 mls @ 100 mls/hr IVPB DAILY [facility] Last Admin: 05/18/17 09:04 Dose: 100 mls/hr Lactulose (Enulose) 10 gm PO DAILY PRN PRN Reason: Constipation Last Admin: 05/18/17 08:52 Dose: 10 gm Metolazone (Zaroxolyn) 2.5 mg PO DAILY [facility] Last Admin: 05/18/17 08:53 Dose: 2.5 mg Metoprolol Succinate (Toprol Xl) 25 mg PO DAILY [facility] Last Admin: 05/18/17 08:55 Dose: 25 mg Multivitamins/Minerals (Therapeutic-M Tab) 1 tab PO DAILY [facility] Last Admin: 05/18/17 08:53 Dose: 1 tab Pantoprazole Sodium (Protonix Ec Tab) 40 mg PO DAILY [facility] Last Admin: 05/18/17 08:56 Dose: 40 mg Potassium Chloride (K-Dur 20 Meq Er Tab) 20 meq PO DAILY [facility] Last Admin: 05/18/17 08:53 Dose: 20 meq Rivaroxaban (Xarelto) 15 mg PO DAILY [facility] PRN Reason: Protocol Last Admin: 05/18/17 08:53 Dose: 15 mg Fluticasone/Salmeterol (Advair Diskus 250/50) 1 puff IH Q12 [facility] Last Admin: 05/18/17 08:58 Dose: Not Given Sitagliptin Phosphate (Januvia) 50 mg PO DAILY [facility] Last Admin: 05/18/17 08:53 Dose: 50 mg Valsartan (Diovan) 160 mg PO DAILY [facility] Last Admin: 05/18/17 08:57 Dose: 160 mg Zolpidem Tartrate (Ambien) 5 mg PO HS [facility] Last Admin: 05/17/17 21:29 Dose: 5 mg - Labs Labs: 05/18/17 05:40 05/18/17 05:40
--- NOTE | 2017-05-18 13:45 | RAD ---
HISTORY: sob COMPARISON: Comparison chest dated 05/14/2017 TECHNIQUE: Chest PA and lateral FINDINGS: LUNGS: Slightly improved pulmonary vascular congestion however there are persistent bilateral effusions and bilateral lower lobe alveolar-type infiltrates and presumed mild atelectasis. Right paratracheal density most consistent with ectatic great vessels. PLEURA: No significant pleural effusion identified. No pneumothorax apparent. CARDIOVASCULAR: Sternotomy wires CABG clips and mitral valve replacement Heart remains enlarged. No change bipolar pacemaker OSSEOUS STRUCTURES: Multilevel chronic appearing anterior wedge and fish-mouth endplate deformities again noted. Old healed fracture deformity left humeral head/neck unchanged. Degenerative changes both shoulder girdles. VISUALIZED UPPER ABDOMEN: Normal. OTHER FINDINGS: None. IMPRESSION: Slightly improved pulmonary vascular congestion however persistent effusions and bilateral lower lobe alveolar-type infiltrates/atelectasis.
--- NOTE | 2017-05-18 18:11 | CP.PCM.PN ---
Subjective - Date & Time of Evaluation Date of Evaluation: 05/18/17 Time of Evaluation: 17:50 - Subjective Subjective: patient has no chest pain. still has cough and wheeze, but better. Objective - Vital Signs/Intake and Output Vital Signs (last 24 hours): Temp Pulse Resp BP Pulse Ox 98.4 F 60 14 110/65 92 L 05/18/17 17:00 05/18/17 17:00 05/18/17 17:00 05/18/17 17:00 05/18/17 17:00 - Medications Medications: Current Medications Acetaminophen (Tylenol 325mg Tab) 650 mg PO Q4 PRN PRN Reason: Pain, Mild (1-3) Last Admin: 05/17/17 21:26 Dose: 650 mg Albuterol/Ipratropium (Duoneb 3 Mg/0.5 Mg (3 Ml) Ud) 3 ml IH RQ4 PRN PRN Reason: Shortness of Breath Albuterol/Ipratropium (Duoneb 3 Mg/0.5 Mg (3 Ml) Ud) 3 ml INH RQ4 [facility] Last Admin: 05/18/17 15:34 Dose: 3 ml Clopidogrel Bisulfate (Plavix) 75 mg PO DAILY [facility] Last Admin: 05/18/17 08:56 Dose: 75 mg Digoxin (Lanoxin) 0.125 mg PO DAILY [facility] Last Admin: 05/18/17 08:56 Dose: 0.125 mg Docusate Sodium (Colace) 100 mg PO DAILY [facility] Last Admin: 05/18/17 08:57 Dose: 100 mg Ferrous Sulfate (Feosol) 325 mg PO DAILY [facility] Last Admin: 05/18/17 08:53 Dose: 325 mg Furosemide (Lasix) 20 mg IVP DAILY@1700 [facility] Last Admin: 05/18/17 12:18 Dose: Not Given Gabapentin (Neurontin) 300 mg PO HS [facility] Last Admin: 05/17/17 21:27 Dose: 300 mg Home Med (Memantine Hcl [Namenda Xr]) 14 mg PO DAILY [facility] Methylprednisolone 40 mg/ (Sodium Chloride) 50 mls @ 100 mls/hr IVPB Q12 [facility] Last Admin: 05/18/17 08:55 Dose: 100 mls/hr Levofloxacin/Dextrose (Levaquin 500mg) 500 mg in 100 mls @ 100 mls/hr IVPB DAILY [facility] Last Admin: 05/18/17 09:04 Dose: 100 mls/hr Lactulose (Enulose) 10 gm PO DAILY PRN PRN Reason: Constipation Last Admin: 05/18/17 08:52 Dose: 10 gm Metolazone (Zaroxolyn) 2.5 mg PO DAILY [facility] Last Admin: 05/18/17 08:53 Dose: 2.5 mg Metoprolol Succinate (Toprol Xl) 25 mg PO DAILY [facility] Last Admin: 05/18/17 08:55 Dose: 25 mg Multivitamins/Minerals (Therapeutic-M Tab) 1 tab PO DAILY [facility] Last Admin: 05/18/17 08:53 Dose: 1 tab Pantoprazole Sodium (Protonix Ec Tab) 40 mg PO DAILY [facility] Last Admin: 05/18/17 08:56 Dose: 40 mg Potassium Chloride (K-Dur 20 Meq Er Tab) 20 meq PO DAILY [facility] Last Admin: 05/18/17 08:53 Dose: 20 meq Rivaroxaban (Xarelto) 15 mg PO DAILY [facility] PRN Reason: Protocol Last Admin: 05/18/17 08:53 Dose: 15 mg Fluticasone/Salmeterol (Advair Diskus 250/50) 1 puff IH Q12 [facility] Last Admin: 05/18/17 08:58 Dose: Not Given Sitagliptin Phosphate (Januvia) 50 mg PO DAILY [facility] Last Admin: 05/18/17 08:53 Dose: 50 mg Valsartan (Diovan) 160 mg PO DAILY [facility] Last Admin: 05/18/17 08:57 Dose: 160 mg Zolpidem Tartrate (Ambien) 5 mg PO HS [facility] Last Admin: 05/17/17 21:29 Dose: 5 mg - Labs Labs: 05/18/17 05:40 05/18/17 05:40 - Constitutional Appears: Non-toxic - Head Exam Head Exam: NORMAL INSPECTION - Eye Exam Eye Exam: Normal appearance - ENT Exam ENT Exam: Mucous Membranes Moist - Neck Exam Neck Exam: Full ROM - Respiratory Exam Respiratory Exam: Wheezes - Cardiovascular Exam Cardiovascular Exam: REGULAR RHYTHM - GI/Abdominal Exam GI & Abdominal Exam: Normal Bowel Sounds - Rectal Exam Rectal Exam: Deferred - Extremities Exam Extremities Exam: absent: Pedal Edema - Back Exam Back Exam: NORMAL INSPECTION - Neurological Exam Neurological Exam: Alert - Psychiatric Exam Psychiatric exam: Normal Affect Assessment and Plan (1) CHF (congestive heart failure) Assessment & Plan: stable chronic systolic dysfunction. Status: Acute (2) COPD exacerbation Assessment & Plan: continue current pulmonary management Status: Acute (3) Chronic congestive heart failure Status: Acute
[2017-05-19] MEDS: Albuterol-Ipratrop 3 mg / 0.5 (3 ml) UD INH SCH ×6 (00:21→19:27)
--- NOTE | 2017-05-19 09:38 | CP.PCM.PN ---
Subjective - Date & Time of Evaluation Date of Evaluation: 05/19/17 Time of Evaluation: 09:36 - Subjective Subjective: Still coughs a lot. Has no fever CXR showed mild improvement of CHF but noted bibasal infiltrate. On Lasix 20 iv and levaquin and neb tx. Objective - Vital Signs/Intake and Output Vital Signs (last 24 hours): Temp Pulse Resp BP Pulse Ox 98.4 F 82 20 116/65 100 05/19/17 08:35 05/19/17 08:35 05/19/17 08:35 05/19/17 08:35 05/19/17 08:35 - Medications Medications: Current Medications Acetaminophen (Tylenol 325mg Tab) 650 mg PO Q4 PRN PRN Reason: Pain, Mild (1-3) Last Admin: 05/17/17 21:26 Dose: 650 mg Albuterol/Ipratropium (Duoneb 3 Mg/0.5 Mg (3 Ml) Ud) 3 ml IH RQ4 PRN PRN Reason: Shortness of Breath Albuterol/Ipratropium (Duoneb 3 Mg/0.5 Mg (3 Ml) Ud) 3 ml INH RQ4 [facility] Last Admin: 05/19/17 07:27 Dose: 3 ml Clopidogrel Bisulfate (Plavix) 75 mg PO DAILY [facility] Last Admin: 05/18/17 08:56 Dose: 75 mg Digoxin (Lanoxin) 0.125 mg PO DAILY [facility] Last Admin: 05/18/17 08:56 Dose: 0.125 mg Docusate Sodium (Colace) 100 mg PO DAILY [facility] Last Admin: 05/18/17 08:57 Dose: 100 mg Ferrous Sulfate (Feosol) 325 mg PO DAILY [facility] Last Admin: 05/18/17 08:53 Dose: 325 mg Furosemide (Lasix) 20 mg IVP DAILY@1700 [facility] Last Admin: 05/18/17 12:18 Dose: Not Given Furosemide (Lasix) 40 mg IVP DAILY [facility] Gabapentin (Neurontin) 300 mg PO HS [facility] Last Admin: 05/18/17 21:13 Dose: 300 mg Home Med (Memantine Hcl [Namenda Xr]) 14 mg PO DAILY [facility] Methylprednisolone 40 mg/ (Sodium Chloride) 50 mls @ 100 mls/hr IVPB Q12 [facility] Last Admin: 05/18/17 21:12 Dose: 100 mls/hr Levofloxacin/Dextrose (Levaquin 500mg) 500 mg in 100 mls @ 100 mls/hr IVPB DAILY [facility] Last Admin: 05/18/17 09:04 Dose: 100 mls/hr Lactulose (Enulose) 10 gm PO DAILY PRN PRN Reason: Constipation Last Admin: 05/18/17 08:52 Dose: 10 gm Metolazone (Zaroxolyn) 2.5 mg PO DAILY [facility] Last Admin: 05/18/17 08:53 Dose: 2.5 mg Metoprolol Succinate (Toprol Xl) 25 mg PO DAILY [facility] Last Admin: 05/18/17 08:55 Dose: 25 mg Multivitamins/Minerals (Therapeutic-M Tab) 1 tab PO DAILY [facility] Last Admin: 05/18/17 08:53 Dose: 1 tab Pantoprazole Sodium (Protonix Ec Tab) 40 mg PO DAILY [facility] Last Admin: 05/18/17 08:56 Dose: 40 mg Potassium Chloride (K-Dur 20 Meq Er Tab) 20 meq PO DAILY [facility] Last Admin: 05/18/17 08:53 Dose: 20 meq Rivaroxaban (Xarelto) 15 mg PO DAILY [facility] PRN Reason: Protocol Last Admin: 05/18/17 08:53 Dose: 15 mg Fluticasone/Salmeterol (Advair Diskus 250/50) 1 puff IH Q12 [facility] Last Admin: 05/18/17 21:13 Dose: 1 puff Sitagliptin Phosphate (Januvia) 50 mg PO DAILY [facility] Last Admin: 05/18/17 08:53 Dose: 50 mg Valsartan (Diovan) 160 mg PO DAILY [facility] Last Admin: 05/18/17 08:57 Dose: 160 mg - Labs Labs: 05/18/17 05:40 05/18/17 05:40 - Head Exam Head Exam: NORMAL INSPECTION - Eye Exam Eye Exam: Normal appearance - ENT Exam ENT Exam: Mucous Membranes Moist - Respiratory Exam Respiratory Exam: Decreased Breath Sounds, Rales - Cardiovascular Exam Cardiovascular Exam: REGULAR RHYTHM - GI/Abdominal Exam GI & Abdominal Exam: Normal Bowel Sounds - Neurological Exam Neurological Exam: Awake, Oriented x3 Assessment and Plan (1) CHF (congestive heart failure) Status: Acute (2) COPD exacerbation Status: Acute (3) Benign essential HTN Status: Acute (4) Coronary artery disease Status: Acute - Assessment and Plan (Free Text) Plan: Cont meds Increase lasix to 40 mg AM and 20 mg pm dose. check labs in am. subacute TCU eval
[2017-05-19] MEDS: methylPREDNISolone 40 MG in Sodium Chloride 0.9% 50 ML IVPB SCH ×2 (09:49→21:14)
[2017-05-19] MEDS: Fluticasone-Salmeterol 250-50mcg Diskus IH SCH ×2 (09:49→21:13)
[2017-05-19] MEDS: Metoprolol Succinate 25 mg XL Tab PO SCH (09:49)
[2017-05-19] MEDS: metOLazone 2.5 MG TAB PO SCH (09:50)
[2017-05-19] MEDS: Digoxin 125 mcg (0.125 mg) Tab PO SCH (09:50)
[2017-05-19] MEDS: Pantoprazole 40 mg EC Tab PO SCH (09:50)
[2017-05-19] MEDS: Multivitamin With Minerals Tab PO SCH (09:50)
[2017-05-19] MEDS: Potassium Chloride 20 mEq ER Tab PO SCH (09:51)
[2017-05-19] MEDS: levoFLOXacin 500 mg in D5W 500 MG/100 ML BAG IVPB SCH (09:52)
[2017-05-19 11:24] LABS: CALCIUM 8.8 mg/dL (8.4-10.2); POTASSIUM 3.6 MMOL/L (3.6-5.0)
[2017-05-20] MEDS: Albuterol-Ipratrop 3 mg / 0.5 (3 ml) UD INH SCH ×6 (00:58→19:04)
[2017-05-20 06:47] LABS: BASO % 0.2 % (0.0-2.0); EOS # 0.1 K/uL (0.0-0.7); EOS % 0.4 % (0.0-4.0); HEMATOCRIT 30.6 % (34.0-47.0); LYMPH # 1.9 K/uL (1.0-4.3); LYMPH % 16.3 % (20.0-40.0); MEAN CELL VOLUME 91.3 fl (81.0-99.0); MEAN CORPUSCULAR HEMOGLOBIN 28.9 pg (27.0-31.0); MEAN CORPUSCULAR HGB CONC 31.6 g/dL (33.0-37.0); MEAN PLATELET VOLUME 10.8 fl (7.2-11.7); MONO % 8.6 % (0.0-10.0); NEUT # 8.8 K/uL (1.8-7.0); NEUT % 74.5 % (50.0-75.0); RED CELL DISTRIBUTION WIDTH 18.8 % (11.5-14.5); WHITE BLOOD COUNT 11.8 K/uL (4.8-10.8)
[2017-05-20 06:57] LABS: ALKALINE PHOSPHATASE 53 U/L (38-126); ALT/SGPT 46 U/L (9-52); AST/SGOT 46 U/L (14-36); BILIRUBIN,TOTAL 0.6 mg/dl (0.2-1.3); BLOOD UREA NITROGEN 51 mg/dl (7-17); CALCIUM 9.2 mg/dL (8.4-10.2); CARBON DIOXIDE 35 mmol/L (22-30); CHLORIDE 95 mmol/L (98-107); GFR AFRICAN-AMERICAN > 60; GLUCOSE,RANDOM 88 mg/dL (65-105); POTASSIUM 3.5 MMOL/L (3.6-5.0); SODIUM 135 mmol/l (132-148); TOTAL PROTEIN 5.4 G/DL (6.3-8.2)
[2017-05-20 07:00] LABS: ALB/GLOB RATIO 1.3 (1.0-2.1)
[2017-05-20] MEDS: Fluticasone-Salmeterol 250-50mcg Diskus IH SCH ×2 (09:00→21:52)
[2017-05-20] MEDS: Potassium Chloride 20 mEq ER Tab PO SCH (09:01)
[2017-05-20] MEDS: Digoxin 125 mcg (0.125 mg) Tab PO SCH (09:02)
[2017-05-20] MEDS: levoFLOXacin 500 mg in D5W 500 MG/100 ML BAG IVPB SCH (09:02)
[2017-05-20] MEDS: Pantoprazole 40 mg EC Tab PO SCH (09:02)
[2017-05-20] MEDS: Multivitamin With Minerals Tab PO SCH (09:03)
[2017-05-20] MEDS: methylPREDNISolone 40 MG in Sodium Chloride 0.9% 50 ML IVPB SCH (09:03)
[2017-05-20] MEDS: Metoprolol Succinate 25 mg XL Tab PO SCH (09:03)
[2017-05-20] MEDS: metOLazone 2.5 MG TAB PO SCH (09:04)
--- NOTE | 2017-05-20 10:35 | CP.PCM.PN ---
Subjective - Date & Time of Evaluation Date of Evaluation: 05/20/17 Time of Evaluation: 10:34 - Subjective Subjective: Patient remains stable Has no chest pain Still with SOB and cough WBC noted to be elevated 11.8 Objective - Vital Signs/Intake and Output Vital Signs (last 24 hours): Temp Pulse Resp BP Pulse Ox 97.9 F 65 18 137/75 100 05/20/17 08:52 05/20/17 09:03 05/20/17 08:52 05/20/17 09:03 05/20/17 08:52 - Medications Medications: Current Medications Acetaminophen (Tylenol 325mg Tab) 650 mg PO Q4 PRN PRN Reason: Pain, Mild (1-3) Last Admin: 05/17/17 21:26 Dose: 650 mg Albuterol/Ipratropium (Duoneb 3 Mg/0.5 Mg (3 Ml) Ud) 3 ml IH RQ4 PRN PRN Reason: Shortness of Breath Albuterol/Ipratropium (Duoneb 3 Mg/0.5 Mg (3 Ml) Ud) 3 ml INH RQ4 [facility] Last Admin: 05/20/17 07:21 Dose: 3 ml Clopidogrel Bisulfate (Plavix) 75 mg PO DAILY [facility] Last Admin: 05/20/17 09:02 Dose: 75 mg Digoxin (Lanoxin) 0.125 mg PO DAILY [facility] Last Admin: 05/20/17 09:02 Dose: 0.125 mg Docusate Sodium (Colace) 100 mg PO DAILY [facility] Last Admin: 05/20/17 09:01 Dose: 100 mg Ferrous Sulfate (Feosol) 325 mg PO DAILY [facility] Last Admin: 05/20/17 09:01 Dose: 325 mg Furosemide (Lasix) 20 mg IVP DAILY@1700 [facility] Last Admin: 05/19/17 17:16 Dose: 20 mg Furosemide (Lasix) 40 mg IVP DAILY [facility] Last Admin: 05/20/17 09:00 Dose: 40 mg Gabapentin (Neurontin) 300 mg PO HS [facility] Last Admin: 05/19/17 21:14 Dose: 300 mg Home Med (Memantine Hcl [Namenda Xr]) 14 mg PO DAILY [facility] Levofloxacin/Dextrose (Levaquin 500mg) 500 mg in 100 mls @ 100 mls/hr IVPB DAILY [facility] Last Admin: 05/20/17 09:02 Dose: 100 mls/hr Lactulose (Enulose) 10 gm PO DAILY PRN PRN Reason: Constipation Last Admin: 05/18/17 08:52 Dose: 10 gm Metolazone (Zaroxolyn) 2.5 mg PO DAILY [facility] Last Admin: 05/20/17 09:04 Dose: 2.5 mg Metoprolol Succinate (Toprol Xl) 25 mg PO DAILY [facility] Last Admin: 05/20/17 09:03 Dose: 25 mg Multivitamins/Minerals (Therapeutic-M Tab) 1 tab PO DAILY [facility] Last Admin: 05/20/17 09:03 Dose: 1 tab Pantoprazole Sodium (Protonix Ec Tab) 40 mg PO DAILY [facility] Last Admin: 05/20/17 09:02 Dose: 40 mg Potassium Chloride (K-Dur 20 Meq Er Tab) 20 meq PO DAILY [facility] Last Admin: 05/20/17 09:01 Dose: 20 meq Rivaroxaban (Xarelto) 15 mg PO DAILY [facility] PRN Reason: Protocol Last Admin: 05/20/17 09:04 Dose: 15 mg Fluticasone/Salmeterol (Advair Diskus 250/50) 1 puff IH Q12 [facility] Last Admin: 05/20/17 09:00 Dose: Not Given Sitagliptin Phosphate (Januvia) 50 mg PO DAILY [facility] Last Admin: 05/20/17 09:01 Dose: 50 mg Valsartan (Diovan) 160 mg PO DAILY [facility] Last Admin: 05/20/17 09:01 Dose: 160 mg - Labs Labs: 05/20/17 06:00 05/20/17 06:00 Assessment and Plan (1) CHF (congestive heart failure) Status: Acute (2) COPD exacerbation Status: Acute (3) Benign essential HTN Status: Acute (4) Coronary artery disease Status: Acute
[2017-05-21] MEDS: Albuterol-Ipratrop 3 mg / 0.5 (3 ml) UD INH SCH ×7 (00:50→23:31)
[2017-05-21 06:02] LABS: HEMATOCRIT 32.6 % (34.0-47.0); MEAN CELL VOLUME 91.6 fl (81.0-99.0); MEAN CORPUSCULAR HEMOGLOBIN 28.9 pg (27.0-31.0); MEAN CORPUSCULAR HGB CONC 31.6 g/dL (33.0-37.0); RED CELL DISTRIBUTION WIDTH 18.5 % (11.5-14.5); WHITE BLOOD COUNT 13.3 K/uL (4.8-10.8)
[2017-05-21 06:26] LABS: CALCIUM 9.4 mg/dL (8.4-10.2); POTASSIUM 3.1 MMOL/L (3.6-5.0)
[2017-05-21] MEDS ORDERED: Potassium Chloride 20 mEq ER Tab PO ONE (08:14)
[2017-05-21] MEDS: Potassium Chloride 20 mEq ER Tab PO SCH (08:55)
[2017-05-21] MEDS: Fluticasone-Salmeterol 250-50mcg Diskus IH SCH ×3 (09:00→21:37)
[2017-05-21] MEDS: Digoxin 125 mcg (0.125 mg) Tab PO SCH (09:01)
[2017-05-21] MEDS: Metoprolol Succinate 25 mg XL Tab PO SCH (09:01)
[2017-05-21] MEDS: metOLazone 2.5 MG TAB PO SCH (09:01)
[2017-05-21] MEDS: Pantoprazole 40 mg EC Tab PO SCH (09:01)
[2017-05-21] MEDS: Multivitamin With Minerals Tab PO SCH (09:01)
[2017-05-21] MEDS: levoFLOXacin 500 mg in D5W 500 MG/100 ML BAG IVPB SCH (09:02)
--- NOTE | 2017-05-21 11:27 | PQF GENQUE ---
This form is a permanent part of the medical record 05/21/17 Dr. Lawrence, Would you please clarify if there is an associated diagnosis or not to go along with the documentation of infiltrate. Admitted with SOB. PN of 05/19 " CXR showed mild improvement of CHF but noted bibasal infiltrate" On Levaquin. On admission TEMP 99, WBC 11.4 with a L shift. Awaiting CT Chest results. Clarification of your documentation is requested to better reflect the severity of illness and intensity of treatment of your patient. Indicators present [] Specify: [] [] Specify: [] [] Specify: [] [] Specify: [] Location in the medical record that reflects the above clinical findings: [] Treatment Provided: [] PHYSICIAN'S RESPONSE Based on your medical judgment of the clinical indicators outlined above please clarify the following: [] Practitioner response [] If unable to determine, please check the box, sign and date. Present On Admission (POA) Indicator: [] Present at the time of admission [] Not present at the time of admission [] Clinically Undetermined In responding to this query, please exercise your independent professional judgment. The fact that a question is asked does not imply that any particular answer is desired or expected. Thank you for your clarification on this documentation. If you have any questions please call:ext [phone] * Thank you, Brenda Hendrickson RN CDMP [facility]
[2017-05-21] MEDS: methylPREDNISolone 20 MG in Sodium Chloride 0.9% 50 ML IVPB SCH ×2 (12:00→21:37)
--- NOTE | 2017-05-21 15:34 | CT ---
PROCEDURE: CT Chest without contrast HISTORY: sob, pna, f/u pleural effusion COMPARISON: Comparison made with chest radiograph and CT scan chest dated 05/18/2017 and 09/13/2016 respectively. TECHNIQUE: Contiguous axial images were obtained through the chest without intravenous contrast enhancement. Sagittal and coronal reconstructions were performed. Radiation dose (DLP): 221.0 mGy-cm. This CT exam was performed using one or more of the following dose reduction techniques: Automated exposure control, adjustment of the mA and/or kV according to patient size, and/or use of iterative reconstruction technique. FINDINGS: LUNGS: Re- demonstrated is medium-sized right-sided effusion and mild right basilar atelectasis. Mild linear atelectasis and or scarring left lung base with what may represent some cylindrical bronchiectasis. . Linear scarring and/or atelectasis of also noted in the lingular and middle lobe regions. Improved pulmonary edema. Mild biapical pleural thickening MEDIASTINUM: Sternotomy wires and mitral valve replacement. Again noted is The heart is enlarged. Coronary artery calcifications are present. No significant pericardial effusion. . In situ bipolar pacemaker new since prior CT scan however unchanged from prior chest radiograph. . Ascending thoracic aorta measures approximately 3.3 cm. Descending thoracic aorta measures approximately 2.56 cm. Pulmonary trunk is dilated measuring 3.45 cm; rule out underlying pulmonary arterial hypertension. Multiple small to medium-sized nonspecific mediastinal lymph nodes are present. Evaluation for hilar adenopathy limited due to the lack of circulating intravenous contrast material. Multiple tiny bilateral axillary lymph nodes are present. Central airways are midline and patent. No obvious endoluminal lesions seen. PLEURA: As above. No pneumothorax. BONES: There are multiple chronic appearing anterior wedge compression fractures of the thoracic spine there are also multilevel fish-mouth endplate deformities. Slight increase kyphosis. UPPER ABDOMEN: Note made of small nonobstructing calculi upper pole left kidney. There also there are least 3 vague very small areas of increased attenuation within the cortex upper pole left kidney that are of uncertain etiology. Findings could represent tiny hyperdense cysts however solid lesions not excluded. Consider followup renal ultrasound for further evaluation. OTHER FINDINGS: None. IMPRESSION: Moderate-sized right-sided effusion and mild right basilar atelectasis. Mild linear/ curvilinear atelectasis/ scarring both lung bases as above. Improved vascular congestion. Marked cardiomegaly. Dilated pulmonary trunk. Rule out underlying pulmonary arterial hypertension. Multiple small to medium-sized mediastinal lymph nodes. See above discussion for additional details and findings.
[2017-05-22] MEDS: Albuterol-Ipratrop 3 mg / 0.5 (3 ml) UD INH SCH ×5 (05:00→19:19)
[2017-05-22 06:05] LABS: HEMATOCRIT 34.5 % (34.0-47.0); MEAN CELL VOLUME 92.5 fl (81.0-99.0); MEAN CORPUSCULAR HEMOGLOBIN 29.2 pg (27.0-31.0); MEAN CORPUSCULAR HGB CONC 31.6 g/dL (33.0-37.0)
[2017-05-22 06:10] LABS: POTASSIUM 3.7 MMOL/L (3.6-5.0)
[2017-05-22 06:25] LABS: CALCIUM 9.3 mg/dL (8.4-10.2)
[2017-05-22] MEDS: Pantoprazole 40 mg EC Tab PO SCH (09:16)
[2017-05-22] MEDS: Digoxin 125 mcg (0.125 mg) Tab PO SCH (09:18)
[2017-05-22] MEDS: Multivitamin With Minerals Tab PO SCH (09:18)
[2017-05-22] MEDS: Metoprolol Succinate 25 mg XL Tab PO SCH (09:18)
[2017-05-22] MEDS: metOLazone 2.5 MG TAB PO SCH (09:18)
[2017-05-22] MEDS: Potassium Chloride 20 mEq ER Tab PO SCH (09:18)
[2017-05-22] MEDS: levoFLOXacin 500 mg in D5W 500 MG/100 ML BAG IVPB SCH (09:19)
[2017-05-22] MEDS: methylPREDNISolone 20 MG in Sodium Chloride 0.9% 50 ML IVPB SCH ×2 (09:19→21:11)
[2017-05-22] MEDS: Fluticasone-Salmeterol 250-50mcg Diskus IH SCH ×4 (09:24→21:16)
--- NOTE | 2017-05-22 13:19 | CP.PCM.PN ---
Subjective - Date & Time of Evaluation Date of Evaluation: 05/22/17 Time of Evaluation: 09:30 - Subjective Subjective: pt seen and examined with attending today. Pt sitting up in chair at bedside, comfortably, pleasant mood. No acute events overnight. Improved SOB. Denies cough. Tolerating PO intake w/o difficulty. No new complaints. Denies fever/ chills, headaches, changes in vision, CP/SOB/Palpiations, N/V/D/C, urinary symptoms. Objective - Vital Signs/Intake and Output Vital Signs (last 24 hours): Temp Pulse Resp BP Pulse Ox 97.9 F 66 14 108/50 L 99 05/22/17 12:18 05/22/17 12:18 05/22/17 12:18 05/22/17 12:18 05/22/17 12:18 - Medications Medications: Current Medications Acetaminophen (Tylenol 325mg Tab) 650 mg PO Q4 PRN PRN Reason: Pain, Mild (1-3) Last Admin: 05/17/17 21:26 Dose: 650 mg Albuterol/Ipratropium (Duoneb 3 Mg/0.5 Mg (3 Ml) Ud) 3 ml INH RQ4 [facility] Last Admin: 05/22/17 11:42 Dose: 3 ml Clopidogrel Bisulfate (Plavix) 75 mg PO DAILY [facility] Last Admin: 05/22/17 09:18 Dose: 75 mg Digoxin (Lanoxin) 0.125 mg PO DAILY [facility] Last Admin: 05/22/17 09:18 Dose: 0.125 mg Docusate Sodium (Colace) 100 mg PO DAILY [facility] Last Admin: 05/22/17 09:17 Dose: 100 mg Ferrous Sulfate (Feosol) 325 mg PO DAILY [facility] Last Admin: 05/22/17 09:18 Dose: 325 mg Furosemide (Lasix) 40 mg IVP DAILY [facility] Last Admin: 05/22/17 09:19 Dose: 40 mg Gabapentin (Neurontin) 300 mg PO HS [facility] Last Admin: 05/21/17 21:36 Dose: 300 mg Methylprednisolone 20 mg/ (Sodium Chloride) 50 mls @ 100 mls/hr IVPB Q12 [facility] Last Admin: 05/22/17 09:19 Dose: 100 mls/hr Lactulose (Enulose) 10 gm PO DAILY PRN PRN Reason: Constipation Last Admin: 05/18/17 08:52 Dose: 10 gm Levofloxacin (Levaquin) 500 mg PO DAILY [facility] Metolazone (Zaroxolyn) 2.5 mg PO DAILY [facility] Last Admin: 05/22/17 09:18 Dose: 2.5 mg Metoprolol Succinate (Toprol Xl) 25 mg PO DAILY [facility] Last Admin: 05/22/17 09:18 Dose: 25 mg Multivitamins/Minerals (Therapeutic-M Tab) 1 tab PO DAILY [facility] Last Admin: 05/22/17 09:18 Dose: 1 tab Pantoprazole Sodium (Protonix Ec Tab) 40 mg PO DAILY [facility] Last Admin: 05/22/17 09:16 Dose: 40 mg Potassium Chloride (K-Dur 20 Meq Er Tab) 20 meq PO DAILY [facility] Last Admin: 05/22/17 09:18 Dose: 20 meq Rivaroxaban (Xarelto) 15 mg PO DAILY [facility] PRN Reason: Protocol Last Admin: 05/22/17 09:17 Dose: 15 mg Fluticasone/Salmeterol (Advair Diskus 250/50) 1 puff IH Q12 [facility] Last Admin: 05/22/17 09:25 Dose: Not Given Sitagliptin Phosphate (Januvia) 50 mg PO DAILY [facility] Last Admin: 05/22/17 09:18 Dose: 50 mg Spironolactone (Aldactone) 12.5 mg PO DAILY [facility] Last Admin: 05/22/17 09:17 Dose: 12.5 mg Valsartan (Diovan) 160 mg PO DAILY [facility] Last Admin: 05/22/17 09:16 Dose: 160 mg - Labs Labs: 05/22/17 05:45 05/22/17 05:45 PT 23.6 Seconds (9.8-13.1) H 05/22/17 12:25 INR 2.3 (0.9-1.2) H 05/22/17 12:25 - Constitutional Appears: Non-toxic, No Acute Distress - ENT Exam ENT Exam: Mucous Membranes Moist - Respiratory Exam Respiratory Exam: Rhonchi (improved air entry, improved lung sounds. ), NORMAL BREATHING PATTERN. absent: Decreased Breath Sounds - Cardiovascular Exam Cardiovascular Exam: REGULAR RHYTHM, RRR, +S1, +S2. absent: JVD - Extremities Exam Extremities Exam: absent: Calf Tenderness - Neurological Exam Neurological Exam: Alert, Awake Assessment and Plan (1) Acute on chronic heart failure Assessment & Plan: cardiology on board decreased Lasix dosage to only 40 mg QD Status: Acute (2) Pleural effusion on right Assessment & Plan: chest CT shows moderate right sided pleural effusion pulmonology consult with Dr. Martinez appreciated Status: Acute (3) COPD (chronic obstructive pulmonary disease) Assessment & Plan: c/w current management Status: Chronic (4) HTN (hypertension) Assessment & Plan: c/w current management Status: Chronic (5) DVT prophylaxis Assessment & Plan: Rivoxaban 15mg QD Status: Acute
[2017-05-23] MEDS: Albuterol-Ipratrop 3 mg / 0.5 (3 ml) UD INH SCH ×7 (00:39→23:41)
[2017-05-23] MEDS: Fluticasone-Salmeterol 250-50mcg Diskus IH SCH ×2 (08:36→21:22)
[2017-05-23] MEDS: Potassium Chloride 20 mEq ER Tab PO SCH (08:38)
[2017-05-23] MEDS: Digoxin 125 mcg (0.125 mg) Tab PO SCH (08:38)
[2017-05-23] MEDS: Pantoprazole 40 mg EC Tab PO SCH (08:39)
[2017-05-23] MEDS: levoFLOXacin 500 MG TAB PO SCH (08:39)
[2017-05-23] MEDS: methylPREDNISolone 20 MG in Sodium Chloride 0.9% 50 ML IVPB SCH (08:40)
[2017-05-23] MEDS: Metoprolol Succinate 25 mg XL Tab PO SCH (08:40)
[2017-05-23] MEDS: Multivitamin With Minerals Tab PO SCH (08:41)
[2017-05-23] MEDS: metOLazone 2.5 MG TAB PO SCH (08:41)
--- NOTE | 2017-05-24 02:05 | CON ---
DATE: HISTORY OF PRESENT ILLNESS: Neal is an 82-year-old female who was referred by Dr. Lawrence for evaluation of right pleural effusion. She was admitted with shortness of breath, exercise intolerance and chest tightness and referred for pulmonary evaluation. She has a past medical history of chronic obstructive pulmonary disease, congestive heart failure, status post coronary artery bypass graft. FAMILY HISTORY: Unremarkable. SOCIAL HISTORY: She does not drink or smoke. REVIEW OF SYSTEMS: Essentially, unremarkable for swollen of legs and shortness of breath. PHYSICAL EXAMINATION: GENERAL: The patient is alert and oriented, appears much more comfortable, since admission. VITAL SIGNS: Remarkable for blood pressure of 117/69, pulse of 75, and respiratory rate 18. She is afebrile, O2 sat 97% on room air. SKIN: Shows fair turgor. HEENT: Pupils equal and reactive to light and accommodation. NECK: JVP flat. LUNGS: Fair aeration with dullness at right basal and few scattered bilateral rales. HEART: S1 and S2. Has scar for coronary artery bypass graft over the anterior chest wall. ABDOMEN: Soft and nontender. No organomegaly. Abdomen is benign. EXTREMITIES: Show 1+ pitting pedal edema. No cyanosis noted. CENTRAL NERVOUS SYSTEM: Grossly intact. DIAGNOSTIC DATA: Chest x-ray is unremarkable for cardiomegaly with small right pleural effusions, hardware of coronary artery bypass graft noted. LABORATORY DATA: WBC 11.0, hemoglobin 10.9, and platelet count of 255,000. Sodium 138, potassium 3.7, BUN 69, and creatinine 1.2. Glucose 197. Arterial blood gas done on 32% FiO2, pH of 7.52, pCO2 of 40, pO2 of 130, and bicarbonate 32.0. IMPRESSION: Right pleural effusion probably secondary to mild congestive heart failure, questionable history of chronic obstructive pulmonary disease. One suggest continue diuretic therapy, oxygen, discontinue steroids for now, no indication for thoracentesis or left pleural effusion was noted. We will continue to follow with you. Harley Martinez MD
[2017-05-24] MEDS: Albuterol-Ipratrop 3 mg / 0.5 (3 ml) UD INH SCH ×4 (04:50→15:44)
[2017-05-24 06:29] LABS: HEMATOCRIT 33.2 % (34.0-47.0); MEAN CELL VOLUME 90.9 fl (81.0-99.0); MEAN CORPUSCULAR HEMOGLOBIN 29.4 pg (27.0-31.0); MEAN CORPUSCULAR HGB CONC 32.4 g/dL (33.0-37.0); RED CELL DISTRIBUTION WIDTH 18.8 % (11.5-14.5); WHITE BLOOD COUNT 14.6 K/uL (4.8-10.8)
[2017-05-24 06:43] LABS: BLOOD UREA NITROGEN 54 mg/dl (7-17); CARBON DIOXIDE 31 mmol/L (22-30); CHLORIDE 90 mmol/L (98-107); GFR AFRICAN-AMERICAN > 60; GLUCOSE,RANDOM 86 mg/dL (65-105); POTASSIUM 3.7 MMOL/L (3.6-5.0); SODIUM 130 mmol/l (132-148)
[2017-05-24 08:02] VITALS: O2SAT 97
[2017-05-24] MEDS: Fluticasone-Salmeterol 250-50mcg Diskus IH SCH (08:48)
[2017-05-24] MEDS: Potassium Chloride 20 mEq ER Tab PO SCH (08:51)
[2017-05-24] MEDS: Digoxin 125 mcg (0.125 mg) Tab PO SCH (08:52)
[2017-05-24] MEDS: Pantoprazole 40 mg EC Tab PO SCH (08:53)
[2017-05-24] MEDS: Multivitamin With Minerals Tab PO SCH (08:53)
[2017-05-24] MEDS: levoFLOXacin 500 MG TAB PO SCH (08:53)
[2017-05-24] MEDS: metOLazone 2.5 MG TAB PO SCH (08:54)
[2017-05-24] MEDS: Metoprolol Succinate 25 mg XL Tab PO SCH (08:54)
[2017-05-24 08:58] VITALS: PULSE 56
--- NOTE | 2017-05-24 09:07 | CP.PCM.PN ---
Subjective - Date & Time of Evaluation Date of Evaluation: 05/24/17 Time of Evaluation: 09:07 - Subjective Subjective: FEELS WELL NO CHEST PAINS/SOB NO COUGH Objective - Vital Signs/Intake and Output Vital Signs (last 24 hours): Temp Pulse Resp BP Pulse Ox 98.1 F 56 L 18 121/65 97 05/24/17 08:01 05/24/17 08:54 05/24/17 08:01 05/24/17 08:54 05/24/17 08:01 - Medications Medications: Current Medications Acetaminophen (Tylenol 325mg Tab) 650 mg PO Q4 PRN PRN Reason: Pain, Mild (1-3) Last Admin: 05/17/17 21:26 Dose: 650 mg Albuterol/Ipratropium (Duoneb 3 Mg/0.5 Mg (3 Ml) Ud) 3 ml INH RQ4 [facility] Last Admin: 05/24/17 07:51 Dose: 3 ml Clopidogrel Bisulfate (Plavix) 75 mg PO DAILY [facility] Last Admin: 05/22/17 09:18 Dose: 75 mg Digoxin (Lanoxin) 0.125 mg PO DAILY [facility] Last Admin: 05/24/17 08:52 Dose: Not Given Docusate Sodium (Colace) 100 mg PO DAILY [facility] Last Admin: 05/24/17 08:50 Dose: 100 mg Ferrous Sulfate (Feosol) 325 mg PO DAILY [facility] Last Admin: 05/24/17 08:50 Dose: 325 mg Furosemide (Lasix) 40 mg IVP DAILY [facility] Last Admin: 05/24/17 08:52 Dose: 40 mg Gabapentin (Neurontin) 300 mg PO HS [facility] Last Admin: 05/23/17 21:23 Dose: 300 mg Lactulose (Enulose) 10 gm PO DAILY PRN PRN Reason: Constipation Last Admin: 05/18/17 08:52 Dose: 10 gm Levofloxacin (Levaquin) 500 mg PO DAILY [facility] Last Admin: 05/24/17 08:53 Dose: 500 mg Metolazone (Zaroxolyn) 2.5 mg PO DAILY [facility] Last Admin: 05/24/17 08:54 Dose: 2.5 mg Metoprolol Succinate (Toprol Xl) 25 mg PO DAILY [facility] Last Admin: 05/24/17 08:54 Dose: Not Given Multivitamins/Minerals (Therapeutic-M Tab) 1 tab PO DAILY [facility] Last Admin: 05/24/17 08:53 Dose: 1 tab Pantoprazole Sodium (Protonix Ec Tab) 40 mg PO DAILY [facility] Last Admin: 05/24/17 08:53 Dose: 40 mg Potassium Chloride (K-Dur 20 Meq Er Tab) 20 meq PO DAILY [facility] Last Admin: 05/24/17 08:51 Dose: 20 meq Prednisone (Prednisone Tab) 20 mg PO DAILY [facility] Last Admin: 05/24/17 08:53 Dose: 20 mg Rivaroxaban (Xarelto) 15 mg PO DAILY [facility] PRN Reason: Protocol Last Admin: 05/24/17 08:53 Dose: 15 mg Fluticasone/Salmeterol (Advair Diskus 250/50) 1 puff IH Q12 [facility] Last Admin: 05/24/17 08:48 Dose: Not Given Sitagliptin Phosphate (Januvia) 50 mg PO DAILY [facility] Last Admin: 05/24/17 08:50 Dose: 50 mg Spironolactone (Aldactone) 12.5 mg PO DAILY [facility] Last Admin: 05/24/17 08:49 Dose: 12.5 mg Valsartan (Diovan) 160 mg PO DAILY [facility] Last Admin: 05/24/17 08:50 Dose: 160 mg - Labs Labs: 05/24/17 05:00 05/24/17 05:00 PT 23.6 Seconds (9.8-13.1) H 05/22/17 12:25 INR 2.3 (0.9-1.2) H 05/22/17 12:25 - Constitutional Appears: Well, No Acute Distress - Head Exam Head Exam: ATRAUMATIC, NORMAL INSPECTION, NORMOCEPHALIC - Eye Exam Eye Exam: EOMI, Normal appearance, PERRL Pupil Exam: NORMAL ACCOMODATION, PERRL - ENT Exam ENT Exam: Mucous Membranes Moist, Normal Exam - Neck Exam Neck Exam: Full ROM, Normal Inspection. absent: Lymphadenopathy - Respiratory Exam Respiratory Exam: Clear to Ausculation Bilateral, NORMAL BREATHING PATTERN - Cardiovascular Exam Cardiovascular Exam: REGULAR RHYTHM, +S1, +S2. absent: Murmur - GI/Abdominal Exam GI & Abdominal Exam: Soft, Normal Bowel Sounds. absent: Tenderness - Rectal Exam Rectal Exam: NORMAL INSPECTION - Extremities Exam Extremities Exam: Full ROM, Normal Capillary Refill, Normal Inspection. absent : Joint Swelling, Pedal Edema - Back Exam Back Exam: NORMAL INSPECTION - Neurological Exam Neurological Exam: Alert, Awake, CN II-XII Intact, Normal Gait, Oriented x3 - Psychiatric Exam Psychiatric exam: Normal Affect, Normal Mood - Skin Skin Exam: Dry, Intact, Normal Color, Warm Assessment and Plan - Assessment and Plan (Free Text) Assessment: PLEURAL EFFUSION IS PROBABLY DUE TO CHF Plan: AWAIT CXR TODAY NO FURTHER PULMONARY INTERVENTION IF PLEURAL EFFUSION IMPROVES
--- NOTE | 2017-05-24 09:34 | CP.PCM.PN ---
Subjective - Date & Time of Evaluation Date of Evaluation: 05/21/17 Time of Evaluation: 09:30 - Subjective Subjective: Patient still has a lot of cough and SOB and rales. Objective - Vital Signs/Intake and Output Vital Signs (last 24 hours): Temp Pulse Resp BP Pulse Ox 98.1 F 56 L 18 121/65 97 05/24/17 08:01 05/24/17 08:54 05/24/17 08:01 05/24/17 08:54 05/24/17 08:01 - Medications Medications: Current Medications Acetaminophen (Tylenol 325mg Tab) 650 mg PO Q4 PRN PRN Reason: Pain, Mild (1-3) Last Admin: 05/17/17 21:26 Dose: 650 mg Albuterol/Ipratropium (Duoneb 3 Mg/0.5 Mg (3 Ml) Ud) 3 ml INH RQ4 [facility] [place] Last Admin: 05/24/17 07:51 Dose: 3 ml Clopidogrel Bisulfate (Plavix) 75 mg PO DAILY [facility] [place] Last Admin: 05/22/17 09:18 Dose: 75 mg Digoxin (Lanoxin) 0.125 mg PO DAILY [facility] [place] Last Admin: 05/24/17 08:52 Dose: Not Given Docusate Sodium (Colace) 100 mg PO DAILY [facility] [place] Last Admin: 05/24/17 08:50 Dose: 100 mg Ferrous Sulfate (Feosol) 325 mg PO DAILY [facility] [place] Last Admin: 05/24/17 08:50 Dose: 325 mg Furosemide (Lasix) 40 mg IVP DAILY [facility] [place] Last Admin: 05/24/17 08:52 Dose: 40 mg Gabapentin (Neurontin) 300 mg PO HS [facility] [place] Last Admin: 05/23/17 21:23 Dose: 300 mg Lactulose (Enulose) 10 gm PO DAILY PRN PRN Reason: Constipation Last Admin: 05/18/17 08:52 Dose: 10 gm Levofloxacin (Levaquin) 500 mg PO DAILY [facility] [place] Last Admin: 05/24/17 08:53 Dose: 500 mg Metolazone (Zaroxolyn) 2.5 mg PO DAILY [facility] [place] Last Admin: 05/24/17 08:54 Dose: 2.5 mg Metoprolol Succinate (Toprol Xl) 25 mg PO DAILY [facility] [place] Last Admin: 05/24/17 08:54 Dose: Not Given Multivitamins/Minerals (Therapeutic-M Tab) 1 tab PO DAILY [facility] [place] Last Admin: 05/24/17 08:53 Dose: 1 tab Pantoprazole Sodium (Protonix Ec Tab) 40 mg PO DAILY [facility] [place] Last Admin: 05/24/17 08:53 Dose: 40 mg Potassium Chloride (K-Dur 20 Meq Er Tab) 20 meq PO DAILY [facility] [place] Last Admin: 05/24/17 08:51 Dose: 20 meq Prednisone (Prednisone Tab) 20 mg PO DAILY [facility] [place] Last Admin: 05/24/17 08:53 Dose: 20 mg Rivaroxaban (Xarelto) 15 mg PO DAILY [facility] [place] PRN Reason: Protocol Last Admin: 05/24/17 08:53 Dose: 15 mg Fluticasone/Salmeterol (Advair Diskus 250/50) 1 puff IH Q12 [facility] [place] Last Admin: 05/24/17 08:48 Dose: Not Given Sitagliptin Phosphate (Januvia) 50 mg PO DAILY [facility] [place] Last Admin: 05/24/17 08:50 Dose: 50 mg Spironolactone (Aldactone) 12.5 mg PO DAILY [facility] [place] Last Admin: 05/24/17 08:49 Dose: 12.5 mg Valsartan (Diovan) 160 mg PO DAILY [facility] [place] Last Admin: 05/24/17 08:50 Dose: 160 mg - Labs Labs: 05/24/17 05:00 05/24/17 05:00 PT 23.6 Seconds (9.8-13.1) H 05/22/17 12:25 INR 2.3 (0.9-1.2) H 05/22/17 12:25 Assessment and Plan (1) COPD exacerbation Status: Acute (2) CHF (congestive heart failure) Status: Acute (3) Pleural effusion on right Status: Acute (4) Acute coronary syndrome Status: Acute
--- NOTE | 2017-05-24 09:35 | CP.PCM.PN ---
Subjective - Date & Time of Evaluation Date of Evaluation: 05/23/17 Time of Evaluation: 10:00 - Subjective Subjective: Patient remains stable Has no chest pain or SOB still with rales Objective - Vital Signs/Intake and Output Vital Signs (last 24 hours): Temp Pulse Resp BP Pulse Ox 98.1 F 56 L 18 121/65 97 05/24/17 08:01 05/24/17 08:54 05/24/17 08:01 05/24/17 08:54 05/24/17 08:01 - Medications Medications: Current Medications Acetaminophen (Tylenol 325mg Tab) 650 mg PO Q4 PRN PRN Reason: Pain, Mild (1-3) Last Admin: 05/17/17 21:26 Dose: 650 mg Albuterol/Ipratropium (Duoneb 3 Mg/0.5 Mg (3 Ml) Ud) 3 ml INH RQ4 [facility] Last Admin: 05/24/17 07:51 Dose: 3 ml Clopidogrel Bisulfate (Plavix) 75 mg PO DAILY [facility] Last Admin: 05/22/17 09:18 Dose: 75 mg Digoxin (Lanoxin) 0.125 mg PO DAILY [facility] Last Admin: 05/24/17 08:52 Dose: Not Given Docusate Sodium (Colace) 100 mg PO DAILY [facility] Last Admin: 05/24/17 08:50 Dose: 100 mg Ferrous Sulfate (Feosol) 325 mg PO DAILY [facility] Last Admin: 05/24/17 08:50 Dose: 325 mg Furosemide (Lasix) 40 mg IVP DAILY [facility] Last Admin: 05/24/17 08:52 Dose: 40 mg Gabapentin (Neurontin) 300 mg PO HS [facility] Last Admin: 05/23/17 21:23 Dose: 300 mg Lactulose (Enulose) 10 gm PO DAILY PRN PRN Reason: Constipation Last Admin: 05/18/17 08:52 Dose: 10 gm Levofloxacin (Levaquin) 500 mg PO DAILY [facility] Last Admin: 05/24/17 08:53 Dose: 500 mg Metolazone (Zaroxolyn) 2.5 mg PO DAILY [facility] Last Admin: 05/24/17 08:54 Dose: 2.5 mg Metoprolol Succinate (Toprol Xl) 25 mg PO DAILY [facility] Last Admin: 05/24/17 08:54 Dose: Not Given Multivitamins/Minerals (Therapeutic-M Tab) 1 tab PO DAILY [facility] Last Admin: 05/24/17 08:53 Dose: 1 tab Pantoprazole Sodium (Protonix Ec Tab) 40 mg PO DAILY [facility] Last Admin: 05/24/17 08:53 Dose: 40 mg Potassium Chloride (K-Dur 20 Meq Er Tab) 20 meq PO DAILY [facility] Last Admin: 05/24/17 08:51 Dose: 20 meq Prednisone (Prednisone Tab) 20 mg PO DAILY [facility] Last Admin: 05/24/17 08:53 Dose: 20 mg Rivaroxaban (Xarelto) 15 mg PO DAILY [facility] PRN Reason: Protocol Last Admin: 05/24/17 08:53 Dose: 15 mg Fluticasone/Salmeterol (Advair Diskus 250/50) 1 puff IH Q12 [facility] Last Admin: 05/24/17 08:48 Dose: Not Given Sitagliptin Phosphate (Januvia) 50 mg PO DAILY [facility] Last Admin: 05/24/17 08:50 Dose: 50 mg Spironolactone (Aldactone) 12.5 mg PO DAILY [facility] Last Admin: 05/24/17 08:49 Dose: 12.5 mg Valsartan (Diovan) 160 mg PO DAILY [facility] Last Admin: 05/24/17 08:50 Dose: 160 mg - Labs Labs: 05/24/17 05:00 05/24/17 05:00 PT 23.6 Seconds (9.8-13.1) H 05/22/17 12:25 INR 2.3 (0.9-1.2) H 05/22/17 12:25 Assessment and Plan (1) COPD exacerbation Status: Acute (2) CHF (congestive heart failure) Status: Acute (3) Pleural effusion on right Status: Acute (4) Acute coronary syndrome Status: Acute
--- NOTE | 2017-05-24 10:57 | RAD ---
HISTORY: COMPARISON: 05/18/2017 TECHNIQUE: Chest PA and lateral FINDINGS: LINES AND TUBES: None. LUNG AND PLEURA: Again seen is severe pulmonary venous congestion. There is linear atelectasis in the right lower lobe and bibasilar atelectasis. There are small pleural effusions. HEART AND MEDIASTINUM: The heart is not enlarged. Status post CABG and prosthetic valve. There is stable position of a left-sided dual lead transvenous permanent pacing device. The hilar and mediastinal contours are within normal limits. SKELETAL STRUCTURES: The bony structures are within normal limits for the patient's age. VISUALIZED UPPER ABDOMEN: Normal. OTHER FINDINGS: None. IMPRESSION: No significant interval change in mild congestive heart failure.
[2017-05-24 16:22] VITALS: BP 126/55; PULSE 66; RESP 14; TEMP 98.5
== END 2017-05-24 18:00 | disposition home or self-care (01) | DRG 291 ==
LOC: H.ER 18:06 → H.ERHOLD 20:18 → H.TEL 22:17
PROVIDERS: ADMIT Family Medicine; ATTEND Family Medicine
PROC: 3E0F7GC Introduction of Other Therapeutic Substance into Respiratory Tract, Via Natural or Artificial Opening (ICD-10-PCS; principal; 2017-05-15)
DX: I11.0 Hypertensive heart disease with heart failure (principal); I50.23 Acute on chronic systolic (congestive) heart failure; J44.1 Chronic obstructive pulmonary disease with (acute) exacerbation; J18.9 Pneumonia, unspecified organism; J44.0 Chronic obstructive pulmonary disease with (acute) lower respiratory infection; G20 Parkinson's disease; F02.80 Dementia in other diseases classified elsewhere, unspecified severity, without behavioral disturbance, psychotic disturbance, mood disturbance, and anxiety; I48.2 Chronic atrial fibrillation; I25.10 Atherosclerotic heart disease of native coronary artery without angina pectoris; E11.9 Type 2 diabetes mellitus without complications; E78.5 Hyperlipidemia, unspecified; Z86.73 Personal history of transient ischemic attack (TIA), and cerebral infarction without residual deficits; Z95.1 Presence of aortocoronary bypass graft; Z79.01 Long term (current) use of anticoagulants; Z79.02 Long term (current) use of antithrombotics/antiplatelets; Z90.49 Acquired absence of other specified parts of digestive tract; Z95.0 Presence of cardiac pacemaker

== ENCOUNTER 2017-06-11 15:56 | Inpatient (IN) | payer MEDICARE, OTHER ==
[2017-06-11] MEDS ORDERED: Albuterol-Ipratrop 3 mg / 0.5 (3 ml) UD IH STA ×2 (16:10→20:04)
[2017-06-11] MEDS ORDERED: Albuterol-Ipratrop 3 mg / 0.5 (3 ml) UD INH STA (16:10)
--- NOTE | 2017-06-11 16:15 | ED PDOC ---
HPI: SOB/CHF/COPD Time Seen by Provider: 06/11/17 16:00 Chief Complaint (Nursing): Respiratory Distress Chief Complaint (Provider): Dyspnea History Per: Patient, EMS, Family History/Exam Limitations: no limitations Onset/Duration Of Symptoms: Days (Today) Current Symptoms Are (Timing): Still Present Additional Complaint(s): Pt. with dyspnea, cough. Phlegm, unclear what color. Per family started today. EMS gave 1 duoneb and 1 albuterol and oxygenation went up from 92 to 96% . Pt. with no chest pain. Had 1 episode of diarrhea, nonbloody. No nausea, vomit. Generally weak. No abd pain, headaches, dizziness. PCP: Dr. Lawrence. Past Medical History Reviewed: Nursing Documentation, Vital Signs Vital Signs: Last Vital Signs Temp 98 F 06/11/17 17:38 Pulse 85 06/11/17 17:59 Resp 18 06/11/17 17:59 BP 120/79 06/11/17 17:59 Pulse Ox 100 06/11/17 17:59 - Medical History PMH: Anemia, Arthritis, Asthma, Atrial Fibrillation, Bronchitis, CAD (valvular heart disease), Cardia Arrhythmia, CHF, COPD, CVA (recurrent), Dementia, Diabetes (type II), HTN, Hypercholesterolemia, Hyperlipidemia, Parkinson's Disease, Peripheral Edema, Pneumonia, TIA Denies: HIV, Hypothyroidism, Chronic Kidney Disease, Rheumatoid Arthritis - Surgical History Surgical History: Appendectomy, Carotid Endarterectomy, Cholecystectomy, Pacemaker - Family History Family History: States: Unknown Family Hx - Living Arrangements Living Arrangements: With Family - Social History Current smoker - smoking cessation education provided: No Alcohol: None Drugs: Denies - Immunization History Hx Tetanus Toxoid Vaccination: No Hx Influenza Vaccination: No Hx Pneumococcal Vaccination: No - Home Medications Home Medications: Ambulatory Orders Medication Instructions Recorded Ferrous Sulfate [Feosol] 325 mg PO DAILY 09/12/16 Linagliptin [Tradjenta] 5 mg PO DAILY 09/12/16 Gabapentin [Neurontin] 300 mg PO HS 12/15/16 Mv,Min10/Folic Acid/D3/Ala/Lut 1 tab PO DAILY 12/15/16 [Strovite One Caplet] Rivaroxaban [Xarelto] 15 mg PO DAILY 12/15/16 Albuterol/Ipratropium [Duoneb 3 3 ml IH Q6H PRN 02/16/17 mg/0.5 mg (3 ml) UD] Digoxin [Lanoxin] 0.125 mg PO DAILY 02/16/17 Omeprazole 20 mg PO DAILY 02/16/17 Valsartan [Diovan] 160 mg PO DAILY 02/16/17 Zolpidem [Ambien] 5 mg PO HS 02/16/17 metOLazone [Zaroxolyn] 2.5 mg PO DAILY 02/16/17 Furosemide [Lasix] 40 mg PO DAILY #30 tablet 05/24/17 Benzonatate [Tessalon Perles] 100 mg PO TID PRN 06/11/17 Butalbital/Aspirin/Caffeine 1 tab PO Q4 PRN 06/11/17 [[id number] 50-325-40] Tobramycin 0.3% [Tobramycin 5 Ml] 1 drop OU TID 06/11/17 - Allergies Allergies/Adverse Reactions: Allergies Allergy/AdvReac Type Severity Reaction Status Date / Time No Known Allergies Allergy Verified 02/15/17 00:37 Review of Systems ROS Statement: Except As Marked, All Systems Reviewed And Found Negative Constitutional: Positive for: Weakness Cardiovascular: Positive for: Edema Respiratory: Positive for: Cough, Shortness of Breath, Sputum Gastrointestinal: Positive for: Diarrhea Neurological: Positive for: Weakness Physical Exam - Reviewed Nursing Documentation Reviewed: Yes Vital Signs Reviewed: Yes - Physical Exam Appears: Positive for: Uncomfortable Head Exam: Positive for: ATRAUMATIC, NORMAL INSPECTION, NORMOCEPHALIC Skin: Positive for: Normal Color, Warm, DRY Eye Exam: Positive for: EOMI, Normal appearance, PERRL ENT: Positive for: Normal ENT Inspection. Negative for: Nasal Congestion Neck: Positive for: Normal, Painless ROM, Supple Cardiovascular/Chest: Positive for: Regular Rate, Rhythm, Edema. Negative for: Tachycardia Respiratory: Positive for: Decreased Breath Sounds, Wheezing, Other (wheezes and b/l coarse breath sounds). Negative for: Accessory Muscle Use Gastrointestinal/Abdominal: Positive for: Normal Exam, Soft. Negative for: Tenderness Back: Positive for: Normal Inspection. Negative for: L CVA Tenderness, R CVA Tenderness Extremity: Positive for: Normal ROM, Pedal Edema (b/l 1+ pitting). Negative for : Tenderness, Calf Tenderness Neurologic/Psych: Positive for: Alert. Negative for: Facial Droop - Laboratory Results Result Diagrams: 06/11/17 16:54 06/11/17 16:54 Interpretation Of Abn Labs: 12.8 wbc, probnp elevated; lactate 4.2, bun 57; elevated blood sugar - ECG ECG: Positive for: Interpreted By Me, Viewed By Me Interpretation Of Abn EKG: ventricular paced O2 Sat by Pulse Oximetry: 100 Pulse Ox Interpretation: Normal (with oxygen) - Radiology X-Ray: Interpreted by Me X-Ray Interpretation: Other (infiltrates RLL; vascular congestion) - Progress ED Course And Treament: 1733: Stable. Getting tx. 1833: Stable. Considering chf on top of pneumonia will give fluids conservatively. Pt. meets severe sepsis criteria. Will start hospital acquired pneumonia antibiotics. Dyspnea improved. Spoke with Dr. Mariscal who will admi ICU. Disposition - Clinical Impression Clinical Impression: Pneumonia, CHF (congestive heart failure), Severe sepsis - Patient ED Disposition Is Patient to be Admitted: Yes Counseled Patient/Family Regarding: Studies Performed, Diagnosis - Disposition Disposition Time: 19:42 Condition: SERIOUS - Pt Status Changed To: Hospital Disposition Of: Inpatient - Admit Certification Admit to Inpatient:: After my assessment, the patient will require hospitalization for at least two midnights. This is because of the severity of symptoms shown, intensity of services needed, and/or the medical risk in this patient being treated as an outpatient. - POA Present On Arrival: Poor Glycemic Control
[2017-06-11 16:34] LABS: ABG ALLEN TEST YES; ARTERIAL BLOOD GAS HCO3 28.1 mmol/L (21-28); ARTERIAL BLOOD GAS PO2 67 mm/Hg (80-100)
[2017-06-11] MEDS ORDERED: Sodium Chloride 0.9% 250 ML IV STA (16:55)
[2017-06-11 17:05] LABS: BASO % 0.3 % (0.0-2.0); HEMATOCRIT 33.9 % (34.0-47.0); LYMPH # 1.4 K/uL (1.0-4.3); LYMPH % 10.5 % (20.0-40.0); MEAN CELL VOLUME 92.1 fl (81.0-99.0); MEAN CORPUSCULAR HEMOGLOBIN 28.7 pg (27.0-31.0); MEAN CORPUSCULAR HGB CONC 31.2 g/dL (33.0-37.0); MEAN PLATELET VOLUME 10.5 fl (7.2-11.7); MONO # 0.8 K/uL (0.0-0.8); MONO % 6.2 % (0.0-10.0); NEUT # 10.7 K/uL (1.8-7.0); NRBC % 0.5 % (0.0-0.0); RED CELL DISTRIBUTION WIDTH 17.1 % (11.5-14.5); WHITE BLOOD COUNT 12.8 K/uL (4.8-10.8)
[2017-06-11 17:13] LABS: PARTIAL THROMBOPLASTIN TIME 33.8 Seconds (25.6-37.1)
[2017-06-11 17:17] LABS: ALB/GLOB RATIO 1.3 (1.0-2.1); ALKALINE PHOSPHATASE 106 U/L (38-126); ALT/SGPT 89 U/L (9-52); AST/SGOT 71 U/L (14-36); BILIRUBIN,TOTAL 0.5 mg/dl (0.2-1.3); BLOOD UREA NITROGEN 57 mg/dl (7-17); CALCIUM 9.8 mg/dL (8.4-10.2); CARBON DIOXIDE 30 mmol/L (22-30); CHLORIDE 99 mmol/L (98-107); GFR AFRICAN-AMERICAN > 60; GLUCOSE,RANDOM 251 mg/dL (65-105); MAGNESIUM 1.8 MG/DL (1.6-2.3); PHOSPHOROUS 3.8 mg/dl (2.5-4.5); POTASSIUM 3.6 MMOL/L (3.6-5.0); SODIUM 142 mmol/l (132-148); TOTAL PROTEIN 6.8 G/DL (6.3-8.2)
[2017-06-11 17:23] LABS: RBC URINE < 1 /hpf (0-3); URINE BACTERIA RARE (<OCC); URINE BILIRUBIN NEGATIVE (NEGATIVE); URINE BLOOD NEGATIVE (NEGATIVE); URINE COLOR YELLOW (YELLOW); URINE GLUCOSE (UA) NEG (Normal); URINE KETONE NEGATIVE (NEGATIVE); URINE LEUKOCYTE ESTERASE NEG Leu/uL (Negative); URINE PROTEIN NEGATIVE (NEGATIVE); URINE UROBILINOGEN 0.2-1.0 mg/dL (0.2-1.0); WBC URINE 1 /hpf (0-5)
[2017-06-11] MEDS ORDERED: Azithromycin 500 MG in Sodium Chloride 0.9% 250 ML IVPB STA (17:25)
[2017-06-11] MEDS ORDERED: Piperacillin/Tazobact 4.5 GM in Sodium Chloride 0.9% 100 ML IV ONE (17:30)
[2017-06-11] MEDS ORDERED: Vancomycin 1 g Inj ONE (17:45)
[2017-06-11] MEDS ORDERED: Azithromycin 500 MG IV IVPB ONE (17:45)
--- NOTE | 2017-06-11 17:59 | RAD ---
HISTORY: Sepsis patient COMPARISON: 05/24/2017 FINDINGS: LUNGS: Improved aeration of the lungs compared to the prior study. No focal infiltrates PLEURA: Small bilateral pleural effusions less than that seen previously CARDIOVASCULAR: Cardiomegaly. No evidence of acute, significant cardiovascular disease. Position/ configuration of pacemaker Incidental Finding(s): Postoperative changes related to sternotomy. OSSEOUS STRUCTURES: No significant abnormalities. VISUALIZED UPPER ABDOMEN: Normal. OTHER FINDINGS: None. IMPRESSION: No active disease.
[2017-06-11] MEDS ORDERED: Sodium Chloride 0.9% 500 ML IV STA (18:23)
--- NOTE | 2017-06-11 18:31 | CP.CCUPN ---
CCU Subjective - Physician Review Events Since Last Encounter (Free Text): 06/11/17 19:04 The patient was Seen/interviewed and examined by me at the bedside, Medical records reviewed and Management issues were discussed and formulated with the house staff. 82 Years old Female with Multiple medical conditions including HTN, Hypercholesterolemia, Atrial Fibrillation, Bronchitis, CAD, Cardia Arrhythmia, CHF, Asthma/ COPD, CVA (recurrent), Dementia, Diabetes (type II), Hyperlipidemia , Parkinson's Disease, Peripheral Edema, Pneumonia, TIA, Anemia and Arthritis Who was brought in to ER for dyspnea and productive cough. CXR showed right middle lobe consolidation. 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 Started on IV antibiotics to cover the most common healthcare associated organisms Critical Care Time Spent (in minutes): 30 CCU Objective - Vital Signs / Intake & Output Vital Signs (Last 4 hours): Vital Signs Temp Pulse Resp BP Pulse Ox 06/11/17 18:30 100 06/11/17 18:26 98 F 84 19 130/78 100 06/11/17 18:20 98.0 F 06/11/17 17:59 85 18 120/79 100 06/11/17 17:48 122/78 06/11/17 17:38 98 F 82 19 126/77 99 06/11/17 17:17 83 21 128/70 99 06/11/17 16:50 87 20 125/69 100 06/11/17 16:10 99.5 F 83 16 146/70 100 06/11/17 16:09 86 20 149/83 100 Intake and Output (Last 8hrs): Intake & Output 06/11/17 06/11/17 06/11/17 06:59 14:59 22:59 Weight 100 lb 4.438 oz - Physical Exam Physical Exam Limitations: Positive for: Altered Mental Status Head: Positive for: Atraumatic, Normocephalic Pupils: Positive for: PERRL Extroacular Muscles: Positive for: EOMI Conjunctiva: Positive for: Normal Mouth: Positive for: Moist Mucous Membranes Nose (Internal): Positive for: Normal Inspection Neck: Positive for: Normal Range of Motion, Trachea Midline. Negative for: Meningeal Signs, MIDLINE TENDERNESS, Paraspinal Tenderness, JVD, Lymphadenopathy , Bruit, Other Respiratory/Chest: Positive for: Good Air Exchange, Decreased Breath Sounds, Rhonchi. Negative for: Accessory Muscle Use, Wheezes Cardiovascular: Positive for: Regular Rate and Rhythm, Normal S1, S2, Peripheal Pulses Present. Negative for: Murmurs - Medications Active Medications: Active Medications Generic Name Dose Route Start Last Admin Trade Name Freq PRN Reason Stop Dose Admin Sodium Chloride 250 mls @ 100 mls/hr 06/11/17 16:55 06/11/17 17:42 Sodium Chloride 0.9% IV 06/11/17 19:24 100 mls/hr .[id number] STA Administration Vancomycin HCl 1 gm/ Sodium 250 mls @ 166.667 mls/hr 06/11/17 17:25 06/11/17 17:51 Chloride IVPB 06/11/17 18:54 250 mls/hr STAT STA Administration Protocol Sodium Chloride 500 mls @ 500 mls/hr 06/11/17 18:23 Sodium Chloride 0.9% IV 06/11/17 19:22 .Q1H STA - Patient Studies Lab Studies: Lab Studies 06/11/17 06/11/17 06/11/17 Range/Units 17:10 16:54 16:54 WBC (4.8-10.8) K/uL RBC (3.80-5.20) Mil/uL Hgb (12.0-16.0) g/dL Hct (34.0-47.0) % MCV (81.0-99.0) fl MCH (27.0-31.0) pg MCHC (33.0-37.0) g/dL RDW (11.5-14.5) % Plt Count (130-400) K/uL MPV (7.2-11.7) fl Neut % (Auto) (50.0-75.0) % Lymph % (Auto) (20.0-40.0) % [place] % (Auto) (0.0-10.0) % Eos % (Auto) (0.0-4.0) % Baso % (Auto) (0.0-2.0) % Neut # (1.8-7.0) K/uL Lymph # (1.0-4.3) K/uL [place] # (0.0-0.8) K/uL Eos # (0.0-0.7) K/uL Baso # (0.0-0.2) K/uL PT (9.8-13.1) Seconds INR (0.9-1.2) APTT (25.6-37.1) Seconds pCO2 (35-45) mm/Hg pO2 (80-100) mm/Hg HCO3 (21-28) mmol/L ABG pH (7.35-7.45) ABG Total CO2 (22-28) mmol/L ABG O2 Saturation (95-98) % ABG Base Excess (-2.0-3.0) mmol/L Kermit Test ABG Potassium (3.6-5.2) mmol/L A-a O2 Difference mm/Hg Sodium (132-148) mmol/L Chloride (98-107) mmol/L Glucose (65-105) mg/dL Lactate (0.7-2.1) mmol/L FiO2 % Blood Gas Comments Crit Value Called To Crit Value Called By Crit Value Read Back Blood Gas Notified Time Potassium (3.6-5.0) MMOL/L Carbon Dioxide (22-30) mmol/L Anion Gap (10-20) BUN (7-17) mg/dl Creatinine (0.7-1.2) mg/dL Est GFR ( Amer) Est GFR (Non-Af Amer) Random Glucose (65-105) mg/dL Calcium (8.4-10.2) mg/dL Phosphorus (2.5-4.5) mg/dl Magnesium (1.6-2.3) MG/DL Total Bilirubin (0.2-1.3) mg/dl AST (14-36) U/L ALT (9-52) U/L Alkaline Phosphatase (38-126) U/L Troponin I (0.00-0.120) ng/mL NT-Pro-B Natriuret Pep (0-900) pg/ml Total Protein (6.3-8.2) G/DL Albumin (3.5-5.0) g/dL Globulin (2.2-3.9) gm/dL Albumin/Globulin Ratio (1.0-2.1) Arterial Blood Potassium (3.6-5.2) mmol/L Urine Color Yellow (YELLOW) Urine Clarity Slighty-cloudy (Clear) Urine pH 7.0 (5.0-8.0) Ur Specific [place] 1.011 (1.003-1.030) Urine Protein Negative (NEGATIVE) mg/dL Urine Glucose (UA) Neg (Normal) mg/dL Urine Ketones Negative (NEGATIVE) mg/dL Urine Blood Negative (NEGATIVE) Urine Nitrate Negative (NEGATIVE) Urine Bilirubin Negative (NEGATIVE) Urine Urobilinogen 0.2-1.0 (0.2-1.0) mg/dL Ur Leukocyte Esterase Neg (Negative) Artie/uL Urine RBC (Auto) < 1 (0-3) /hpf Urine Microscopic WBC 1 (0-5) /hpf Ur Squamous Epith Cells 1 (0-5) /hpf Urine Bacteria Rare (<OCC) Hyaline Casts 3-5 H (0-2) /hpf Digoxin 1.1 (0.8-2.0) ng/mL Influenza Typ A,B (EIA) Negative for flu a/b (NEGATIVE) 06/11/17 06/11/17 06/11/17 Range/Units 16:54 16:54 16:54 WBC 12.8 H (4.8-10.8) K/uL RBC 3.69 L (3.80-5.20) Mil/uL Hgb 10.6 L (12.0-16.0) g/dL Hct 33.9 L (34.0-47.0) % MCV 92.1 (81.0-99.0) fl MCH 28.7 (27.0-31.0) pg MCHC 31.2 L (33.0-37.0) g/dL RDW 17.1 H (11.5-14.5) % Plt Count 320 (130-400) K/uL MPV 10.5 (7.2-11.7) fl Neut % (Auto) 83.0 H (50.0-75.0) % Lymph % (Auto) 10.5 L (20.0-40.0) % [place] % (Auto) 6.2 (0.0-10.0) % Eos % (Auto) 0.0 (0.0-4.0) % Baso % (Auto) 0.3 (0.0-2.0) % Neut # 10.7 H (1.8-7.0) K/uL Lymph # 1.4 (1.0-4.3) K/uL [place] # 0.8 (0.0-0.8) K/uL Eos # 0.0 (0.0-0.7) K/uL Baso # 0.0 (0.0-0.2) K/uL PT 24.4 H (9.8-13.1) Seconds INR 2.1 H (0.9-1.2) APTT 33.8 (25.6-37.1) Seconds pCO2 (35-45) mm/Hg pO2 (80-100) mm/Hg HCO3 (21-28) mmol/L ABG pH (7.35-7.45) ABG Total CO2 (22-28) mmol/L ABG O2 Saturation (95-98) % ABG Base Excess (-2.0-3.0) mmol/L Kermit Test ABG Potassium (3.6-5.2) mmol/L A-a O2 Difference mm/Hg Sodium 142 (132-148) mmol/L Chloride 99 (98-107) mmol/L Glucose (65-105) mg/dL Lactate (0.7-2.1) mmol/L FiO2 % Blood Gas Comments Crit Value Called To Crit Value Called By Crit Value Read Back Blood Gas Notified Time Potassium 3.6 (3.6-5.0) MMOL/L Carbon Dioxide 30 (22-30) mmol/L Anion Gap 17 (10-20) BUN 57 H (7-17) mg/dl Creatinine 1.0 (0.7-1.2) mg/dL Est GFR ( Amer) > 60 Est GFR (Non-Af Amer) 53 Random Glucose 251 H (65-105) mg/dL Calcium 9.8 (8.4-10.2) mg/dL Phosphorus 3.8 (2.5-4.5) mg/dl Magnesium 1.8 (1.6-2.3) MG/DL Total Bilirubin 0.5 (0.2-1.3) mg/dl AST 71 H D (14-36) U/L ALT 89 H D (9-52) U/L Alkaline Phosphatase 106 (38-126) U/L Troponin I 0.0380 (0.00-0.120) ng/mL NT-Pro-B Natriuret Pep 8730 H (0-900) pg/ml Total Protein 6.8 (6.3-8.2) G/DL Albumin 3.9 (3.5-5.0) g/dL Globulin 2.9 (2.2-3.9) gm/dL Albumin/Globulin Ratio 1.3 (1.0-2.1) Arterial Blood Potassium (3.6-5.2) mmol/L Urine Color (YELLOW) Urine Clarity (Clear) Urine pH (5.0-8.0) Ur Specific [place] (1.003-1.030) Urine Protein (NEGATIVE) mg/dL Urine Glucose (UA) (Normal) mg/dL Urine Ketones (NEGATIVE) mg/dL Urine Blood (NEGATIVE) Urine Nitrate (NEGATIVE) Urine Bilirubin (NEGATIVE) Urine Urobilinogen (0.2-1.0) mg/dL Ur Leukocyte Esterase (Negative) Artie/uL Urine RBC (Auto) (0-3) /hpf Urine Microscopic WBC (0-5) /hpf Ur Squamous Epith Cells (0-5) /hpf Urine Bacteria (<OCC) Hyaline Casts (0-2) /hpf Digoxin (0.8-2.0) ng/mL Influenza Typ A,B (EIA) (NEGATIVE) 06/11/17 Range/Units 16:23 WBC (4.8-10.8) K/uL RBC (3.80-5.20) Mil/uL Hgb (12.0-16.0) g/dL Hct (34.0-47.0) % MCV (81.0-99.0) fl MCH (27.0-31.0) pg MCHC (33.0-37.0) g/dL RDW (11.5-14.5) % Plt Count (130-400) K/uL MPV (7.2-11.7) fl Neut % (Auto) (50.0-75.0) % Lymph % (Auto) (20.0-40.0) % [place] % (Auto) (0.0-10.0) % Eos % (Auto) (0.0-4.0) % Baso % (Auto) (0.0-2.0) % Neut # (1.8-7.0) K/uL Lymph # (1.0-4.3) K/uL [place] # (0.0-0.8) K/uL Eos # (0.0-0.7) K/uL Baso # (0.0-0.2) K/uL PT (9.8-13.1) Seconds INR (0.9-1.2) APTT (25.6-37.1) Seconds pCO2 35 (35-45) mm/Hg pO2 67 L (80-100) mm/Hg HCO3 28.1 H (21-28) mmol/L ABG pH 7.50 H (7.35-7.45) ABG Total CO2 28.4 H (22-28) mmol/L ABG O2 Saturation 98.0 (95-98) % ABG Base Excess 4.2 H (-2.0-3.0) mmol/L Kermit Test Yes ABG Potassium 3.7 (3.6-5.2) mmol/L A-a O2 Difference 39.0 mm/Hg Sodium 138.0 (132-148) mmol/L Chloride 101.0 (98-107) mmol/L Glucose 292 H (65-105) mg/dL Lactate 4.2 H* (0.7-2.1) mmol/L FiO2 21.0 % Blood Gas Comments Copy given to rn Crit Value Called To Rn lennox chilel Crit Value Called By 292 Crit Value Read Back Y Blood Gas Notified Time 1634 Potassium (3.6-5.0) MMOL/L Carbon Dioxide (22-30) mmol/L Anion Gap (10-20) BUN (7-17) mg/dl Creatinine (0.7-1.2) mg/dL Est GFR ( Amer) Est GFR (Non-Af Amer) Random Glucose (65-105) mg/dL Calcium (8.4-10.2) mg/dL Phosphorus (2.5-4.5) mg/dl Magnesium (1.6-2.3) MG/DL Total Bilirubin (0.2-1.3) mg/dl AST (14-36) U/L ALT (9-52) U/L Alkaline Phosphatase (38-126) U/L Troponin I (0.00-0.120) ng/mL NT-Pro-B Natriuret Pep (0-900) pg/ml Total Protein (6.3-8.2) G/DL Albumin (3.5-5.0) g/dL Globulin (2.2-3.9) gm/dL Albumin/Globulin Ratio (1.0-2.1) Arterial Blood Potassium 3.7 (3.6-5.2) mmol/L Urine Color (YELLOW) Urine Clarity (Clear) Urine pH (5.0-8.0) Ur Specific [place] (1.003-1.030) Urine Protein (NEGATIVE) mg/dL Urine Glucose (UA) (Normal) mg/dL Urine Ketones (NEGATIVE) mg/dL Urine Blood (NEGATIVE) Urine Nitrate (NEGATIVE) Urine Bilirubin (NEGATIVE) Urine Urobilinogen (0.2-1.0) mg/dL Ur Leukocyte Esterase (Negative) Artie/uL Urine RBC (Auto) (0-3) /hpf Urine Microscopic WBC (0-5) /hpf Ur Squamous Epith Cells (0-5) /hpf Urine Bacteria (<OCC) Hyaline Casts (0-2) /hpf Digoxin (0.8-2.0) ng/mL Influenza Typ A,B (EIA) (NEGATIVE) Laboratory Results - last 24 hr 06/11/17 06/11/17 06/11/17 16:23 16:54 16:54 WBC 12.8 H RBC 3.69 L Hgb 10.6 L Hct 33.9 L MCV 92.1 MCH 28.7 MCHC 31.2 L RDW 17.1 H Plt Count 320 MPV 10.5 Neut % (Auto) 83.0 H Lymph % (Auto) 10.5 L [place] % (Auto) 6.2 Eos % (Auto) 0.0 Baso % (Auto) 0.3 Neut # 10.7 H Lymph # 1.4 [place] # 0.8 Eos # 0.0 Baso # 0.0 PT INR APTT pCO2 35 pO2 67 L HCO3 28.1 H ABG pH 7.50 H ABG Total CO2 28.4 H ABG O2 Saturation 98.0 ABG Base Excess 4.2 H Kermit Test Yes ABG Potassium 3.7 A-a O2 Difference 39.0 Sodium 138.0 142 Chloride 101.0 99 Glucose 292 H Lactate 4.2 H* FiO2 21.0 Blood Gas Comments Copy given to rn Crit Value Called To Rn lennox chilel Crit Value Called By 292 Crit Value Read Back Y Blood Gas Notified Time 1634 Potassium 3.6 Carbon Dioxide 30 Anion Gap 17 BUN 57 H Creatinine 1.0 Est GFR ( Amer) > 60 Est GFR (Non-Af Amer) 53 Random Glucose 251 H Calcium 9.8 Phosphorus 3.8 Magnesium 1.8 Total Bilirubin 0.5 AST 71 H D ALT 89 H D Alkaline Phosphatase 106 Troponin I 0.0380 NT-Pro-B Natriuret Pep 8730 H Total Protein 6.8 Albumin 3.9 Globulin 2.9 Albumin/Globulin Ratio 1.3 Arterial Blood Potassium 3.7 Urine Color Urine Clarity Urine pH Ur Specific [place] Urine Protein Urine Glucose (UA) Urine Ketones Urine Blood Urine Nitrate Urine Bilirubin Urine Urobilinogen Ur Leukocyte Esterase Urine RBC (Auto) Urine Microscopic WBC Ur Squamous Epith Cells Urine Bacteria Hyaline Casts Digoxin Influenza Typ A,B (EIA) 06/11/17 06/11/17 06/11/17 16:54 16:54 16:54 WBC RBC Hgb Hct MCV MCH MCHC RDW Plt Count MPV Neut % (Auto) Lymph % (Auto) [place] % (Auto) Eos % (Auto) Baso % (Auto) Neut # Lymph # [place] # Eos # Baso # PT 24.4 H INR 2.1 H APTT 33.8 pCO2 pO2 HCO3 ABG pH ABG Total CO2 ABG O2 Saturation ABG Base Excess Kermit Test ABG Potassium A-a O2 Difference Sodium Chloride Glucose Lactate FiO2 Blood Gas Comments Crit Value Called To Crit Value Called By Crit Value Read Back Blood Gas Notified Time Potassium Carbon Dioxide Anion Gap BUN Creatinine Est GFR ( Amer) Est GFR (Non-Af Amer) Random Glucose Calcium Phosphorus Magnesium Total Bilirubin AST ALT Alkaline Phosphatase Troponin I NT-Pro-B Natriuret Pep Total Protein Albumin Globulin Albumin/Globulin Ratio Arterial Blood Potassium Urine Color Urine Clarity Urine pH Ur Specific [place] Urine Protein Urine Glucose (UA) Urine Ketones Urine Blood Urine Nitrate Urine Bilirubin Urine Urobilinogen Ur Leukocyte Esterase Urine RBC (Auto) Urine Microscopic WBC Ur Squamous Epith Cells Urine Bacteria Hyaline Casts Digoxin 1.1 Influenza Typ A,B (EIA) Negative for flu a/b 06/11/17 17:10 WBC RBC Hgb Hct MCV MCH MCHC RDW Plt Count MPV Neut % (Auto) Lymph % (Auto) [place] % (Auto) Eos % (Auto) Baso % (Auto) Neut # Lymph # [place] # Eos # Baso # PT INR APTT pCO2 pO2 HCO3 ABG pH ABG Total CO2 ABG O2 Saturation ABG Base Excess Kermit Test ABG Potassium A-a O2 Difference Sodium Chloride Glucose Lactate FiO2 Blood Gas Comments Crit Value Called To Crit Value Called By Crit Value Read Back Blood Gas Notified Time Potassium Carbon Dioxide Anion Gap BUN Creatinine Est GFR ( Amer) Est GFR (Non-Af Amer) Random Glucose Calcium Phosphorus Magnesium Total Bilirubin AST ALT Alkaline Phosphatase Troponin I NT-Pro-B Natriuret Pep Total Protein Albumin Globulin Albumin/Globulin Ratio Arterial Blood Potassium Urine Color Yellow Urine Clarity Slighty-cloudy Urine pH 7.0 Ur Specific [place] 1.011 Urine Protein Negative Urine Glucose (UA) Neg Urine Ketones Negative Urine Blood Negative Urine Nitrate Negative Urine Bilirubin Negative Urine Urobilinogen 0.2-1.0 Ur Leukocyte Esterase Neg Urine RBC (Auto) < 1 Urine Microscopic WBC 1 Ur Squamous Epith Cells 1 Urine Bacteria Rare Hyaline Casts 3-5 H Digoxin Influenza Typ A,B (EIA) EKG/Cardiology Studies: Cardiology / EKG Studies 06/11/17 16:09 ELECTROCARDIOGRAM Stat Comment: Mode Of Transportation: Reason For Exam: Sepsis Patient Review of Systems - Cardiovascular Cardiovascular: Dyspnea, Dyspnea on Exertion, Edema. absent: Chest Pain, Chest Pain at Rest, Chest Pain with Activity, Claudication, Diaphoresis - Respiratory Respiratory: Cough, Dyspnea, Dyspnea on Exertion, Chest Congestion, Excessive Mucous Production. absent: Hemoptysis, Wheezing, Snoring, Stridor, Pain on Inspiration - Gastrointestinal Gastrointestinal: Nausea. absent: Abdominal Pain, Change in Bowel Habits, Coffee Ground Emesis, Diarrhea, Dyspepsia, Dysphagia, Vomiting Critical Care Progress Note - Extremities/Vascular Does the Patient have a Central Venous Catheter?: No Does the Patient need a Central Venous Catheter?: No Does the Patient have a [place] Catheter?: No Does the Patient need a [place] Catheter?: No Assessment/Plan (1) COPD exacerbation Current Visit: No Status: Acute Priority: High Comment: IV Solumedrol 30mg IV Q12H Duoneb PRN Pulmicort IV antibiotics Pulm Consult (2) HCAP (healthcare-associated pneumonia) Current Visit: Yes Status: Acute Comment: IV azithromycin 500 mg IV daily IV zosyn 3.375 gm IV Q8h IV vancomycin 500 mg IV Q12h (3) Severe sepsis Current Visit: Yes Status: Acute Priority: High (4) Chronic congestive heart failure Current Visit: No Status: Acute Comment: diastolic LV EF 65-70% [01/11/16] left atrium mod dilated; lv systolic function normal ef 65-70; suspected thrombus in left atrium (5) Coronary artery disease Current Visit: No Status: Acute Comment: S/p CABG Continue home medications - Assessment and Plan (Free Text) Assessment: Code status: Full code Total critical care time 30 minutes
[2017-06-11 19:59] LABS: VENOUS BLOOD GAS BASE EXCESS 4.4 mmol/L (0.0-2.0); VENOUS BLOOD GAS PCO2 43 mmHg (40-60); VENOUS BLOOD PH 7.44 (7.32-7.43)
[2017-06-11] MEDS: Piperacillin/Tazobact 3.375 GM in Sodium Chloride 0.9% 100 ML IVPB SCH (20:05)
[2017-06-11] MEDS ORDERED: Albuterol-Ipratrop 3 mg / 0.5 (3 ml) UD ONE (20:28)
[2017-06-11] MEDS ORDERED: Meropenem 500 MG in Sodium Chloride 0.9% 100 ML IVPB SCH (20:30)
[2017-06-11] MEDS: Sodium Chloride 0.9% 1,000 ML IV SCH (20:56)
[2017-06-12] MEDS ORDERED: Albuterol-Ipratrop 3 mg / 0.5 (3 ml) UD ONE (00:10)
[2017-06-12] MEDS: Albuterol-Ipratrop 3 mg / 0.5 (3 ml) UD INH SCH ×6 (00:12→19:40)
[2017-06-12] MEDS: Piperacillin/Tazobact 3.375 GM in Sodium Chloride 0.9% 100 ML IVPB SCH ×4 (01:00→18:19)
[2017-06-12] MEDS ORDERED: Meropenem 500 MG in Sodium Chloride 0.9% 100 ML IVPB SCH (01:00)
[2017-06-12] MEDS: METHYLPREDNISOLONE IVPB SCH ×3 (01:20→16:59)
[2017-06-12] MEDS: NS IVPB SCH ×3 (01:20→16:59)
[2017-06-12] MEDS: Sodium Chloride 0.9% 1,000 ML IV SCH (03:15)
[2017-06-12 03:22] VITALS: BMI 20.2
[2017-06-12] MEDS: Meropenem 500 MG in Sodium Chloride 0.9% 100 ML IVPB SCH ×2 (03:49→14:11)
[2017-06-12 05:23] LABS: ALKALINE PHOSPHATASE 75 U/L (38-126); ALT/SGPT 64 U/L (9-52); AST/SGOT 47 U/L (14-36); BILIRUBIN,TOTAL 0.4 mg/dl (0.2-1.3); BLOOD UREA NITROGEN 47 mg/dl (7-17); CARBON DIOXIDE 27 mmol/L (22-30); CHLORIDE 103 mmol/L (98-107); GFR AFRICAN-AMERICAN > 60; GLUCOSE,RANDOM 188 mg/dL (65-105); POTASSIUM 3.3 MMOL/L (3.6-5.0); SODIUM 142 mmol/l (132-148); TOTAL PROTEIN 5.6 G/DL (6.3-8.2)
[2017-06-12 05:26] LABS: BASO % 0.2 % (0.0-2.0); HEMATOCRIT 28.4 % (34.0-47.0); LYMPH # 0.4 K/uL (1.0-4.3); LYMPH % 5.1 % (20.0-40.0); MEAN CELL VOLUME 91.2 fl (81.0-99.0); MEAN CORPUSCULAR HEMOGLOBIN 29.2 pg (27.0-31.0); MEAN CORPUSCULAR HGB CONC 32.1 g/dL (33.0-37.0); MEAN PLATELET VOLUME 10.5 fl (7.2-11.7); MONO # 0.2 K/uL (0.0-0.8); MONO % 2.3 % (0.0-10.0); NEUT # 7.1 K/uL (1.8-7.0); NEUT % 92.4 % (50.0-75.0); NRBC % 0.3 % (0.0-0.0); PLATELET COUNT 269 K/uL (130-400); RED CELL DISTRIBUTION WIDTH 17.2 % (11.5-14.5); WHITE BLOOD COUNT 7.7 K/uL (4.8-10.8)
[2017-06-12 05:28] LABS: ABG ALLEN TEST YES; ARTERIAL BLOOD GAS HCO3 30.7 mmol/L (21-28); ARTERIAL BLOOD GAS MODE 2LNC; ARTERIAL BLOOD GAS O2 CAPACITY 12.6 mL/dL (16-24); ARTERIAL BLOOD GAS O2 CONTENT 12.6 ML/dL (15-23); ARTERIAL BLOOD GAS PO2 108 mm/Hg (80-100); ARTERIAL BLOOD HGB O2 SAT 97.2 % (95.0-98.0); CARBOXYHEMOGLOBIN 1.7 % (0.5-1.5); HHB -0.2 % (0.0-5.0); METHEMOGLOBIN 1.3 % (0.0-3.0)
[2017-06-12 05:54] LABS: ALB/GLOB RATIO 1.2 (1.0-2.1)
[2017-06-12] MEDS: Insulin Lispro (humaLOG) 100 Units/ml Inj SC SCH ×4 (07:00→23:06)
--- NOTE | 2017-06-12 08:17 | CP.CCUPN ---
<Kushal Contreras - Last Filed: 06/12/17 16:32> CCU Subjective - Physician Review Subjective (Free Text): 06/12/17 08:36 Patient seen bedside this morning. No acute distress, denies pain but reports non-bloody productive cough. Patient is sitting up in bed and eating breakfast. Patient reports breathing is a little better. Her only complaint is mild tension headache. The patient has a rao catheter that is producing clear yellow urine, overnight produced 500 mL. Patient denies chest pain, dizziness, abdominal pain, nausea, vomiting, or dysuria. Critical Care Time Spent (in minutes): 35 CCU Objective - Vital Signs / Intake & Output Vital Signs (Last 4 hours): Vital Signs Pulse Resp BP Pulse Ox 06/12/17 06:00 66 19 127/78 100 Intake and Output (Last 8hrs): Intake & Output 06/11/17 06/12/17 06/12/17 22:59 06:59 14:59 Intake Total 435 Output Total 500 Balance -65 Weight 100 lb 4.438 oz 114 lb Intake: IV 75 Intake, Piggyback 300 Oral 60 Output: Urine 500 Urethral (Rao) 500 - Physical Exam Head: Positive for: Atraumatic, Normocephalic Pupils: Positive for: PERRL Extroacular Muscles: Positive for: EOMI Conjunctiva: Positive for: Normal Mouth: Positive for: Moist Mucous Membranes Nose (Internal): Positive for: Normal Inspection Neck: Positive for: Normal Range of Motion, Trachea Midline. Negative for: Meningeal Signs, MIDLINE TENDERNESS, Paraspinal Tenderness, JVD, Lymphadenopathy , Bruit, Other Respiratory/Chest: Positive for: Good Air Exchange, Decreased Breath Sounds, Rhonchi. Negative for: Accessory Muscle Use, Wheezes Cardiovascular: Positive for: Regular Rate and Rhythm, Normal S1, S2, Peripheal Pulses Present. Negative for: Murmurs Abdomen: Positive for: Normal Bowel Sounds. Negative for: Tenderness, Distention Neurological: Positive for: Speech Normal Psychiatric: Positive for: Alert - Medications Active Medications: Active Medications Generic Name Dose Route Start Last Admin Trade Name Freq PRN Reason Stop Dose Admin Albuterol/Ipratropium 3 ml 06/12/17 00:00 06/12/17 07:51 Duoneb 3 Mg/0.5 Mg (3 Ml) Ud INH 3 ml RQ4 CHUY Administration Azithromycin 500 mg/ Sodium 250 mls @ 250 mls/hr 06/12/17 22:00 Chloride IVPB DAILY@2200 CHUY Protocol Sodium Chloride 1,000 mls @ 75 mls/hr 06/11/17 18:45 06/12/17 03:15 Sodium Chloride 0.9% IV 06/12/17 18:33 75 mls/hr .[id number] CHUY Administration Vancomycin HCl 500 mg/ Sodium 100 mls @ 100 mls/hr 06/11/17 18:45 06/12/17 05 :44 Chloride IVPB 100 mls/hr Q12H CHUY Administration Protocol Methylprednisolone 60 mg/ 50 mls @ 100 mls/hr 06/12/17 01:00 06/12/17 01:20 Sodium Chloride IVPB 100 mls/hr Q8 CHUY Administration Meropenem 500 mg/ Sodium 100 mls @ 100 mls/hr 06/12/17 04:00 06/12/17 03:49 Chloride IVPB 100 mls/hr Q8@0400,1200,2000 [facility] Administration Protocol Piperacillin Sod/Tazobactam 100 mls @ 100 mls/hr 06/12/17 03:00 06/12/17 03: 44 Sod 3.375 gm/ Sodium Chloride IVPB 100 mls/hr Q8@0300,1100,1900 [facility] Administration Protocol Insulin Human Lispro 0 units 06/12/17 07:30 06/12/17 07:00 Humalog SC 2 u ACHS CHUY Administration Protocol - Patient Studies Lab Studies: Lab Studies 06/12/17 06/12/17 06/12/17 Range/Units 05:19 05:14 04:35 WBC (4.8-10.8) K/uL RBC (3.80-5.20) Mil/uL Hgb (12.0-16.0) g/dL Hct (34.0-47.0) % MCV (81.0-99.0) fl MCH (27.0-31.0) pg MCHC (33.0-37.0) g/dL RDW (11.5-14.5) % Plt Count (130-400) K/uL MPV (7.2-11.7) fl Neut % (Auto) (50.0-75.0) % Lymph % (Auto) (20.0-40.0) % [place] % (Auto) (0.0-10.0) % Eos % (Auto) (0.0-4.0) % Baso % (Auto) (0.0-2.0) % Neut # (1.8-7.0) K/uL Lymph # (1.0-4.3) K/uL [place] # (0.0-0.8) K/uL Eos # (0.0-0.7) K/uL Baso # (0.0-0.2) K/uL PT (9.8-13.1) Seconds INR (0.9-1.2) APTT (25.6-37.1) Seconds pCO2 40 (35-45) mm/Hg pO2 108 H (80-100) mm/Hg HCO3 30.7 H (21-28) mmol/L ABG pH 7.50 H (7.35-7.45) ABG Total CO2 32.4 H (22-28) mmol/L ABG O2 Saturation 100.2 H (95-98) % ABG O2 Content 12.6 L (15-23) ML/dL ABG Base Excess 7.4 H (-2.0-3.0) mmol/L ABG Hemoglobin 9.1 L (11.7-17.4) g/dL ABG Carboxyhemoglobin 1.7 H (0.5-1.5) % POC ABG HHb (Measured) -0.2 L (0.0-5.0) % ABG Methemoglobin 1.3 (0.0-3.0) % ABG O2 Capacity 12.6 L (16-24) mL/dL Kermit Test Yes ABG Potassium (3.6-5.2) mmol/L VBG pH (7.32-7.43) VBG pCO2 (40-60) mmHg VBG HCO3 mmol/L VBG Total CO2 (22-28) mmol/L VBG O2 Sat (Calc) (40-65) % VBG Base Excess (0.0-2.0) mmol/L VBG Potassium (3.6-5.2) mmol/L A-a O2 Difference 42.0 mm/Hg Hgb O2 Saturation 97.2 (95.0-98.0) % Sodium 142 (132-148) mmol/L Chloride 103 (98-107) mmol/L Glucose (65-105) mg/dL Lactate (0.7-2.1) mmol/L Vent Mode 2lnc FiO2 28.0 % Blood Gas Comments Crit Value Called To Crit Value Called By Crit Value Read Back Blood Gas Notified Time Potassium 3.3 L (3.6-5.0) MMOL/L Carbon Dioxide 27 (22-30) mmol/L Anion Gap 15 (10-20) BUN 47 H (7-17) mg/dl Creatinine 0.9 (0.7-1.2) mg/dL Est GFR ( Amer) > 60 Est GFR (Non-Af Amer) 60 POC Glucose (mg/dL) 204 H (65-110) mg/dL Random Glucose 188 H (65-105) mg/dL Calcium 9.0 (8.4-10.2) mg/dL Phosphorus (2.5-4.5) mg/dl Magnesium (1.6-2.3) MG/DL Total Bilirubin 0.4 (0.2-1.3) mg/dl AST 47 H D (14-36) U/L ALT 64 H D (9-52) U/L Alkaline Phosphatase 75 (38-126) U/L Troponin I (0.00-0.120) ng/mL NT-Pro-B Natriuret Pep (0-900) pg/ml Total Protein 5.6 L (6.3-8.2) G/DL Albumin 3.1 L D (3.5-5.0) g/dL Globulin 2.5 (2.2-3.9) gm/dL Albumin/Globulin Ratio 1.2 (1.0-2.1) Arterial Blood Potassium (3.6-5.2) mmol/L Venous Blood Potassium (3.6-5.2) mmol/L Urine Color (YELLOW) Urine Clarity (Clear) Urine pH (5.0-8.0) Ur Specific [place] (1.003-1.030) Urine Protein (NEGATIVE) mg/dL Urine Glucose (UA) (Normal) mg/dL Urine Ketones (NEGATIVE) mg/dL Urine Blood (NEGATIVE) Urine Nitrate (NEGATIVE) Urine Bilirubin (NEGATIVE) Urine Urobilinogen (0.2-1.0) mg/dL Ur Leukocyte Esterase (Negative) Artie/uL Urine RBC (Auto) (0-3) /hpf Urine Microscopic WBC (0-5) /hpf Ur Squamous Epith Cells (0-5) /hpf Urine Bacteria (<OCC) Hyaline Casts (0-2) /hpf Digoxin (0.8-2.0) ng/mL Influenza Typ A,B (EIA) (NEGATIVE) 06/12/17 06/11/17 06/11/17 Range/Units 04:35 19:46 17:10 WBC 7.7 (4.8-10.8) K/uL RBC 3.11 L (3.80-5.20) Mil/uL Hgb 9.1 L (12.0-16.0) g/dL Hct 28.4 L (34.0-47.0) % MCV 91.2 (81.0-99.0) fl MCH 29.2 (27.0-31.0) pg MCHC 32.1 L (33.0-37.0) g/dL RDW 17.2 H (11.5-14.5) % Plt Count 269 (130-400) K/uL MPV 10.5 (7.2-11.7) fl Neut % (Auto) 92.4 H (50.0-75.0) % Lymph % (Auto) 5.1 L (20.0-40.0) % [place] % (Auto) 2.3 (0.0-10.0) % Eos % (Auto) 0.0 (0.0-4.0) % Baso % (Auto) 0.2 (0.0-2.0) % Neut # 7.1 H (1.8-7.0) K/uL Lymph # 0.4 L (1.0-4.3) K/uL [place] # 0.2 (0.0-0.8) K/uL Eos # 0.0 (0.0-0.7) K/uL Baso # 0.0 (0.0-0.2) K/uL PT (9.8-13.1) Seconds INR (0.9-1.2) APTT (25.6-37.1) Seconds pCO2 (35-45) mm/Hg pO2 56 H (80-100) mm/Hg HCO3 (21-28) mmol/L ABG pH (7.35-7.45) ABG Total CO2 (22-28) mmol/L ABG O2 Saturation (95-98) % ABG O2 Content (15-23) ML/dL ABG Base Excess (-2.0-3.0) mmol/L ABG Hemoglobin (11.7-17.4) g/dL ABG Carboxyhemoglobin (0.5-1.5) % POC ABG HHb (Measured) (0.0-5.0) % ABG Methemoglobin (0.0-3.0) % ABG O2 Capacity (16-24) mL/dL Kermit Test ABG Potassium (3.6-5.2) mmol/L VBG pH 7.44 H (7.32-7.43) VBG pCO2 43 (40-60) mmHg VBG HCO3 28.2 mmol/L VBG Total CO2 30.5 H (22-28) mmol/L VBG O2 Sat (Calc) 93.4 H (40-65) % VBG Base Excess 4.4 H (0.0-2.0) mmol/L VBG Potassium 3.0 L (3.6-5.2) mmol/L A-a O2 Difference mm/Hg Hgb O2 Saturation (95.0-98.0) % Sodium 141.0 (132-148) mmol/L Chloride 102.0 (98-107) mmol/L Glucose 248 H (65-105) mg/dL Lactate 4.4 H* (0.7-2.1) mmol/L Vent Mode FiO2 21.0 % Blood Gas Comments Crit Value Called To Cinthya fernandez Crit Value Called By 292 Crit Value Read Back Y Blood Gas Notified Time 1957 Potassium (3.6-5.0) MMOL/L Carbon Dioxide (22-30) mmol/L Anion Gap (10-20) BUN (7-17) mg/dl Creatinine (0.7-1.2) mg/dL Est GFR ( Amer) Est GFR (Non-Af Amer) POC Glucose (mg/dL) (65-110) mg/dL Random Glucose (65-105) mg/dL Calcium (8.4-10.2) mg/dL Phosphorus (2.5-4.5) mg/dl Magnesium (1.6-2.3) MG/DL Total Bilirubin (0.2-1.3) mg/dl AST (14-36) U/L ALT (9-52) U/L Alkaline Phosphatase (38-126) U/L Troponin I (0.00-0.120) ng/mL NT-Pro-B Natriuret Pep (0-900) pg/ml Total Protein (6.3-8.2) G/DL Albumin (3.5-5.0) g/dL Globulin (2.2-3.9) gm/dL Albumin/Globulin Ratio (1.0-2.1) Arterial Blood Potassium (3.6-5.2) mmol/L Venous Blood Potassium 3.0 L (3.6-5.2) mmol/L Urine Color Yellow (YELLOW) Urine Clarity Slighty-cloudy (Clear) Urine pH 7.0 (5.0-8.0) Ur Specific [place] 1.011 (1.003-1.030) Urine Protein Negative (NEGATIVE) mg/dL Urine Glucose (UA) Neg (Normal) mg/dL Urine Ketones Negative (NEGATIVE) mg/dL Urine Blood Negative (NEGATIVE) Urine Nitrate Negative (NEGATIVE) Urine Bilirubin Negative (NEGATIVE) Urine Urobilinogen 0.2-1.0 (0.2-1.0) mg/dL Ur Leukocyte Esterase Neg (Negative) Artie/uL Urine RBC (Auto) < 1 (0-3) /hpf Urine Microscopic WBC 1 (0-5) /hpf Ur Squamous Epith Cells 1 (0-5) /hpf Urine Bacteria Rare (<OCC) Hyaline Casts 3-5 H (0-2) /hpf Digoxin (0.8-2.0) ng/mL Influenza Typ A,B (EIA) (NEGATIVE) 06/11/17 06/11/17 06/11/17 Range/Units 16:54 16:54 16:54 WBC (4.8-10.8) K/uL RBC (3.80-5.20) Mil/uL Hgb (12.0-16.0) g/dL Hct (34.0-47.0) % MCV (81.0-99.0) fl MCH (27.0-31.0) pg MCHC (33.0-37.0) g/dL RDW (11.5-14.5) % Plt Count (130-400) K/uL MPV (7.2-11.7) fl Neut % (Auto) (50.0-75.0) % Lymph % (Auto) (20.0-40.0) % [place] % (Auto) (0.0-10.0) % Eos % (Auto) (0.0-4.0) % Baso % (Auto) (0.0-2.0) % Neut # (1.8-7.0) K/uL Lymph # (1.0-4.3) K/uL [place] # (0.0-0.8) K/uL Eos # (0.0-0.7) K/uL Baso # (0.0-0.2) K/uL PT 24.4 H (9.8-13.1) Seconds INR 2.1 H (0.9-1.2) APTT 33.8 (25.6-37.1) Seconds pCO2 (35-45) mm/Hg pO2 (80-100) mm/Hg HCO3 (21-28) mmol/L ABG pH (7.35-7.45) ABG Total CO2 (22-28) mmol/L ABG O2 Saturation (95-98) % ABG O2 Content (15-23) ML/dL ABG Base Excess (-2.0-3.0) mmol/L ABG Hemoglobin (11.7-17.4) g/dL ABG Carboxyhemoglobin (0.5-1.5) % POC ABG HHb (Measured) (0.0-5.0) % ABG Methemoglobin (0.0-3.0) % ABG O2 Capacity (16-24) mL/dL Kermit Test ABG Potassium (3.6-5.2) mmol/L VBG pH (7.32-7.43) VBG pCO2 (40-60) mmHg VBG HCO3 mmol/L VBG Total CO2 (22-28) mmol/L VBG O2 Sat (Calc) (40-65) % VBG Base Excess (0.0-2.0) mmol/L VBG Potassium (3.6-5.2) mmol/L A-a O2 Difference mm/Hg Hgb O2 Saturation (95.0-98.0) % Sodium (132-148) mmol/L Chloride (98-107) mmol/L Glucose (65-105) mg/dL Lactate (0.7-2.1) mmol/L Vent Mode FiO2 % Blood Gas Comments Crit Value Called To Crit Value Called By Crit Value Read Back Blood Gas Notified Time Potassium (3.6-5.0) MMOL/L Carbon Dioxide (22-30) mmol/L Anion Gap (10-20) BUN (7-17) mg/dl Creatinine (0.7-1.2) mg/dL Est GFR ( Amer) Est GFR (Non-Af Amer) POC Glucose (mg/dL) (65-110) mg/dL Random Glucose (65-105) mg/dL Calcium (8.4-10.2) mg/dL Phosphorus (2.5-4.5) mg/dl Magnesium (1.6-2.3) MG/DL Total Bilirubin (0.2-1.3) mg/dl AST (14-36) U/L ALT (9-52) U/L Alkaline Phosphatase (38-126) U/L Troponin I (0.00-0.120) ng/mL NT-Pro-B Natriuret Pep (0-900) pg/ml Total Protein (6.3-8.2) G/DL Albumin (3.5-5.0) g/dL Globulin (2.2-3.9) gm/dL Albumin/Globulin Ratio (1.0-2.1) Arterial Blood Potassium (3.6-5.2) mmol/L Venous Blood Potassium (3.6-5.2) mmol/L Urine Color (YELLOW) Urine Clarity (Clear) Urine pH (5.0-8.0) Ur Specific [place] (1.003-1.030) Urine Protein (NEGATIVE) mg/dL Urine Glucose (UA) (Normal) mg/dL Urine Ketones (NEGATIVE) mg/dL Urine Blood (NEGATIVE) Urine Nitrate (NEGATIVE) Urine Bilirubin (NEGATIVE) Urine Urobilinogen (0.2-1.0) mg/dL Ur Leukocyte Esterase (Negative) Artie/uL Urine RBC (Auto) (0-3) /hpf Urine Microscopic WBC (0-5) /hpf Ur Squamous Epith Cells (0-5) /hpf Urine Bacteria (<OCC) Hyaline Casts (0-2) /hpf Digoxin 1.1 (0.8-2.0) ng/mL Influenza Typ A,B (EIA) Negative for flu a/b (NEGATIVE) 06/11/17 06/11/17 06/11/17 Range/Units 16:54 16:54 16:23 WBC 12.8 H (4.8-10.8) K/uL RBC 3.69 L (3.80-5.20) Mil/uL Hgb 10.6 L (12.0-16.0) g/dL Hct 33.9 L (34.0-47.0) % MCV 92.1 (81.0-99.0) fl MCH 28.7 (27.0-31.0) pg MCHC 31.2 L (33.0-37.0) g/dL RDW 17.1 H (11.5-14.5) % Plt Count 320 (130-400) K/uL MPV 10.5 (7.2-11.7) fl Neut % (Auto) 83.0 H (50.0-75.0) % Lymph % (Auto) 10.5 L (20.0-40.0) % [place] % (Auto) 6.2 (0.0-10.0) % Eos % (Auto) 0.0 (0.0-4.0) % Baso % (Auto) 0.3 (0.0-2.0) % Neut # 10.7 H (1.8-7.0) K/uL Lymph # 1.4 (1.0-4.3) K/uL [place] # 0.8 (0.0-0.8) K/uL Eos # 0.0 (0.0-0.7) K/uL Baso # 0.0 (0.0-0.2) K/uL PT (9.8-13.1) Seconds INR (0.9-1.2) APTT (25.6-37.1) Seconds pCO2 35 (35-45) mm/Hg pO2 67 L (80-100) mm/Hg HCO3 28.1 H (21-28) mmol/L ABG pH 7.50 H (7.35-7.45) ABG Total CO2 28.4 H (22-28) mmol/L ABG O2 Saturation 98.0 (95-98) % ABG O2 Content (15-23) ML/dL ABG Base Excess 4.2 H (-2.0-3.0) mmol/L ABG Hemoglobin (11.7-17.4) g/dL ABG Carboxyhemoglobin (0.5-1.5) % POC ABG HHb (Measured) (0.0-5.0) % ABG Methemoglobin (0.0-3.0) % ABG O2 Capacity (16-24) mL/dL Kermit Test Yes ABG Potassium 3.7 (3.6-5.2) mmol/L VBG pH (7.32-7.43) VBG pCO2 (40-60) mmHg VBG HCO3 mmol/L VBG Total CO2 (22-28) mmol/L VBG O2 Sat (Calc) (40-65) % VBG Base Excess (0.0-2.0) mmol/L VBG Potassium (3.6-5.2) mmol/L A-a O2 Difference 39.0 mm/Hg Hgb O2 Saturation (95.0-98.0) % Sodium 142 138.0 (132-148) mmol/L Chloride 99 101.0 (98-107) mmol/L Glucose 292 H (65-105) mg/dL Lactate 4.2 H* (0.7-2.1) mmol/L Vent Mode FiO2 21.0 % Blood Gas Comments Copy given to rn Crit Value Called To Rn lennox chilel Crit Value Called By 292 Crit Value Read Back Y Blood Gas Notified Time 1634 Potassium 3.6 (3.6-5.0) MMOL/L Carbon Dioxide 30 (22-30) mmol/L Anion Gap 17 (10-20) BUN 57 H (7-17) mg/dl Creatinine 1.0 (0.7-1.2) mg/dL Est GFR ( Amer) > 60 Est GFR (Non-Af Amer) 53 POC Glucose (mg/dL) (65-110) mg/dL Random Glucose 251 H (65-105) mg/dL Calcium 9.8 (8.4-10.2) mg/dL Phosphorus 3.8 (2.5-4.5) mg/dl Magnesium 1.8 (1.6-2.3) MG/DL Total Bilirubin 0.5 (0.2-1.3) mg/dl AST 71 H D (14-36) U/L ALT 89 H D (9-52) U/L Alkaline Phosphatase 106 (38-126) U/L Troponin I 0.0380 (0.00-0.120) ng/mL NT-Pro-B Natriuret Pep 8730 H (0-900) pg/ml Total Protein 6.8 (6.3-8.2) G/DL Albumin 3.9 (3.5-5.0) g/dL Globulin 2.9 (2.2-3.9) gm/dL Albumin/Globulin Ratio 1.3 (1.0-2.1) Arterial Blood Potassium 3.7 (3.6-5.2) mmol/L Venous Blood Potassium (3.6-5.2) mmol/L Urine Color (YELLOW) Urine Clarity (Clear) Urine pH (5.0-8.0) Ur Specific [place] (1.003-1.030) Urine Protein (NEGATIVE) mg/dL Urine Glucose (UA) (Normal) mg/dL Urine Ketones (NEGATIVE) mg/dL Urine Blood (NEGATIVE) Urine Nitrate (NEGATIVE) Urine Bilirubin (NEGATIVE) Urine Urobilinogen (0.2-1.0) mg/dL Ur Leukocyte Esterase (Negative) Artie/uL Urine RBC (Auto) (0-3) /hpf Urine Microscopic WBC (0-5) /hpf Ur Squamous Epith Cells (0-5) /hpf Urine Bacteria (<OCC) Hyaline Casts (0-2) /hpf Digoxin (0.8-2.0) ng/mL Influenza Typ A,B (EIA) (NEGATIVE) Laboratory Results - last 24 hr 06/11/17 06/11/17 06/11/17 16:23 16:54 16:54 WBC 12.8 H RBC 3.69 L Hgb 10.6 L Hct 33.9 L MCV 92.1 MCH 28.7 MCHC 31.2 L RDW 17.1 H Plt Count 320 MPV 10.5 Neut % (Auto) 83.0 H Lymph % (Auto) 10.5 L [place] % (Auto) 6.2 Eos % (Auto) 0.0 Baso % (Auto) 0.3 Neut # 10.7 H Lymph # 1.4 [place] # 0.8 Eos # 0.0 Baso # 0.0 PT INR APTT pCO2 35 pO2 67 L HCO3 28.1 H ABG pH 7.50 H ABG Total CO2 28.4 H ABG O2 Saturation 98.0 ABG O2 Content ABG Base Excess 4.2 H ABG Hemoglobin ABG Carboxyhemoglobin POC ABG HHb (Measured) ABG Methemoglobin ABG O2 Capacity Kermit Test Yes ABG Potassium 3.7 VBG pH VBG pCO2 VBG HCO3 VBG Total CO2 VBG O2 Sat (Calc) VBG Base Excess VBG Potassium A-a O2 Difference 39.0 Hgb O2 Saturation Sodium 138.0 142 Chloride 101.0 99 Glucose 292 H Lactate 4.2 H* Vent Mode FiO2 21.0 Blood Gas Comments Copy given to rn Crit Value Called To Rn lennox chilel Crit Value Called By 292 Crit Value Read Back Y Blood Gas Notified Time 1634 Potassium 3.6 Carbon Dioxide 30 Anion Gap 17 BUN 57 H Creatinine 1.0 Est GFR ( Amer) > 60 Est GFR (Non-Af Amer) 53 POC Glucose (mg/dL) Random Glucose 251 H Calcium 9.8 Phosphorus 3.8 Magnesium 1.8 Total Bilirubin 0.5 AST 71 H D ALT 89 H D Alkaline Phosphatase 106 Troponin I 0.0380 NT-Pro-B Natriuret Pep 8730 H Total Protein 6.8 Albumin 3.9 Globulin 2.9 Albumin/Globulin Ratio 1.3 Arterial Blood Potassium 3.7 Venous Blood Potassium Urine Color Urine Clarity Urine pH Ur Specific [place] Urine Protein Urine Glucose (UA) Urine Ketones Urine Blood Urine Nitrate Urine Bilirubin Urine Urobilinogen Ur Leukocyte Esterase Urine RBC (Auto) Urine Microscopic WBC Ur Squamous Epith Cells Urine Bacteria Hyaline Casts Digoxin Influenza Typ A,B (EIA) 06/11/17 06/11/17 06/11/17 16:54 16:54 16:54 WBC RBC Hgb Hct MCV MCH MCHC RDW Plt Count MPV Neut % (Auto) Lymph % (Auto) [place] % (Auto) Eos % (Auto) Baso % (Auto) Neut # Lymph # [place] # Eos # Baso # PT 24.4 H INR 2.1 H APTT 33.8 pCO2 pO2 HCO3 ABG pH ABG Total CO2 ABG O2 Saturation ABG O2 Content ABG Base Excess ABG Hemoglobin ABG Carboxyhemoglobin POC ABG HHb (Measured) ABG Methemoglobin ABG O2 Capacity Kermit Test ABG Potassium VBG pH VBG pCO2 VBG HCO3 VBG Total CO2 VBG O2 Sat (Calc) VBG Base Excess VBG Potassium A-a O2 Difference Hgb O2 Saturation Sodium Chloride Glucose Lactate Vent Mode FiO2 Blood Gas Comments Crit Value Called To Crit Value Called By Crit Value Read Back Blood Gas Notified Time Potassium Carbon Dioxide Anion Gap BUN Creatinine Est GFR ( Amer) Est GFR (Non-Af Amer) POC Glucose (mg/dL) Random Glucose Calcium Phosphorus Magnesium Total Bilirubin AST ALT Alkaline Phosphatase Troponin I NT-Pro-B Natriuret Pep Total Protein Albumin Globulin Albumin/Globulin Ratio Arterial Blood Potassium Venous Blood Potassium Urine Color Urine Clarity Urine pH Ur Specific [place] Urine Protein Urine Glucose (UA) Urine Ketones Urine Blood Urine Nitrate Urine Bilirubin Urine Urobilinogen Ur Leukocyte Esterase Urine RBC (Auto) Urine Microscopic WBC Ur Squamous Epith Cells Urine Bacteria Hyaline Casts Digoxin 1.1 Influenza Typ A,B (EIA) Negative for flu a/b 06/11/17 06/11/17 06/12/17 17:10 19:46 04:35 WBC 7.7 RBC 3.11 L Hgb 9.1 L Hct 28.4 L MCV 91.2 MCH 29.2 MCHC 32.1 L RDW 17.2 H Plt Count 269 MPV 10.5 Neut % (Auto) 92.4 H Lymph % (Auto) 5.1 L [place] % (Auto) 2.3 Eos % (Auto) 0.0 Baso % (Auto) 0.2 Neut # 7.1 H Lymph # 0.4 L [place] # 0.2 Eos # 0.0 Baso # 0.0 PT INR APTT pCO2 pO2 56 H HCO3 ABG pH ABG Total CO2 ABG O2 Saturation ABG O2 Content ABG Base Excess ABG Hemoglobin ABG Carboxyhemoglobin POC ABG HHb (Measured) ABG Methemoglobin ABG O2 Capacity Kermit Test ABG Potassium VBG pH 7.44 H VBG pCO2 43 VBG HCO3 28.2 VBG Total CO2 30.5 H VBG O2 Sat (Calc) 93.4 H VBG Base Excess 4.4 H VBG Potassium 3.0 L A-a O2 Difference Hgb O2 Saturation Sodium 141.0 Chloride 102.0 Glucose 248 H Lactate 4.4 H* Vent Mode FiO2 21.0 Blood Gas Comments Crit Value Called To Cinthya fernandez Crit Value Called By 292 Crit Value Read Back Y Blood Gas Notified Time 1957 Potassium Carbon Dioxide Anion Gap BUN Creatinine Est GFR ( Amer) Est GFR (Non-Af Amer) POC Glucose (mg/dL) Random Glucose Calcium Phosphorus Magnesium Total Bilirubin AST ALT Alkaline Phosphatase Troponin I NT-Pro-B Natriuret Pep Total Protein Albumin Globulin Albumin/Globulin Ratio Arterial Blood Potassium Venous Blood Potassium 3.0 L Urine Color Yellow Urine Clarity Slighty-cloudy Urine pH 7.0 Ur Specific [place] 1.011 Urine Protein Negative Urine Glucose (UA) Neg Urine Ketones Negative Urine Blood Negative Urine Nitrate Negative Urine Bilirubin Negative Urine Urobilinogen 0.2-1.0 Ur Leukocyte Esterase Neg Urine RBC (Auto) < 1 Urine Microscopic WBC 1 Ur Squamous Epith Cells 1 Urine Bacteria Rare Hyaline Casts 3-5 H Digoxin Influenza Typ A,B (EIA) 06/12/17 06/12/17 06/12/17 04:35 05:14 05:19 WBC RBC Hgb Hct MCV MCH MCHC RDW Plt Count MPV Neut % (Auto) Lymph % (Auto) [place] % (Auto) Eos % (Auto) Baso % (Auto) Neut # Lymph # [place] # Eos # Baso # PT INR APTT pCO2 40 pO2 108 H HCO3 30.7 H ABG pH 7.50 H ABG Total CO2 32.4 H ABG O2 Saturation 100.2 H ABG O2 Content 12.6 L ABG Base Excess 7.4 H ABG Hemoglobin 9.1 L ABG Carboxyhemoglobin 1.7 H POC ABG HHb (Measured) -0.2 L ABG Methemoglobin 1.3 ABG O2 Capacity 12.6 L [place] Test Yes ABG Potassium VBG pH VBG pCO2 VBG HCO3 VBG Total CO2 VBG O2 Sat (Calc) VBG Base Excess VBG Potassium A-a O2 Difference 42.0 Hgb O2 Saturation 97.2 Sodium 142 Chloride 103 Glucose Lactate Vent Mode 2lnc FiO2 28.0 Blood Gas Comments Crit Value Called To Crit Value Called By Crit Value Read Back Blood Gas Notified Time Potassium 3.3 L Carbon Dioxide 27 Anion Gap 15 BUN 47 H Creatinine 0.9 Est GFR ( Amer) > 60 Est GFR (Non-Af Amer) 60 POC Glucose (mg/dL) 204 H Random Glucose 188 H Calcium 9.0 Phosphorus Magnesium Total Bilirubin 0.4 AST 47 H D ALT 64 H D Alkaline Phosphatase 75 Troponin I NT-Pro-B Natriuret Pep Total Protein 5.6 L Albumin 3.1 L D Globulin 2.5 Albumin/Globulin Ratio 1.2 Arterial Blood Potassium Venous Blood Potassium Urine Color Urine Clarity Urine pH Ur Specific [place] Urine Protein Urine Glucose (UA) Urine Ketones Urine Blood Urine Nitrate Urine Bilirubin Urine Urobilinogen Ur Leukocyte Esterase Urine RBC (Auto) Urine Microscopic WBC Ur Squamous Epith Cells Urine Bacteria Hyaline Casts Digoxin Influenza Typ A,B (EIA) EKG/Cardiology Studies: Cardiology / EKG Studies 06/11/17 16:09 ELECTROCARDIOGRAM Stat Comment: Mode Of Transportation: Reason For Exam: Sepsis Patient Fingerstick Blood Sugar Results: 204 Review of Systems - Review of Systems All systems: reviewed and no additional remarkable complaints except - Constitutional Constitutional: absent: Fever, Chills, Sweats - Cardiovascular Cardiovascular: absent: Chest Pain - Respiratory Respiratory: Cough, Dyspnea. absent: Hemoptysis - Gastrointestinal Gastrointestinal: absent: Diarrhea, Nausea, Vomiting - Genitourinary Genitourinary: absent: Dysuria Critical Care Progress Note - Nutrition Nutrition: Nutrition Category Date Time Status Heart Healthy Diet [DIET] Diets 06/12/17 Breakfast Active Assessment/Plan - Assessment and Plan (Free Text) Assessment: 82 y/o woman w/ pmh of HTN, CAD, afib, atrial sensed ventricular paced pacemaker , CAD, CHF (05/15/2017 EF 60-65%), COPD, CVA, TIA, dementia, Parkinson's disease , and DM2 in ICU for severe sepsis. Plan: Severe Sepsis secondary to HCAP - discharged from hospital 05/24/2017 for acute on chronic CHF - ABG lactate in ED 4.4 - afebrile since presentation and admission - BP stable - mild tachypnea but non-bloody productive cough - O2 sat 100% on Nasal Cannula @ 6L - EKG: atrial sensed ventricular paced rhythm, prolonged AV conduction - CXR: shows decrease in bilateral pleural effusions compared to previous studies, no focal infiltrates, no active disease - patient refuses BiPap - in ED, Dr Harrell consulted for ID - azithromycin 500 mg IV daily day 1 - meropenem 500 mg IV Q8h day 1 - zosyn 3.375 gm IV Q8h day 1 - vancomycin 500 mg IV Q12h day 1 COPD exacerbation - solumedrol 60 mg IV Q8h - duonebs 3mL Inh Q4h CHF - last echo 05/15/2017 showed EF 60-65%, severe tricuspid regurgitation, severe pulmonary hypertension - on maintenance IVF NS @ 75mL/hr DM2 - home meds not restarted yet - currently on sliding scale Afib - home medication digoxin and Xarelto not restarted yet - has atrial sensed ventricular paced pacemaker Prophylactic measures - SCDs for now <Tavo Robles V - Last Filed: 06/12/17 16:47> CCU Subjective - Physician Review Events Since Last Encounter (Free Text): 06/12/17 16:37 patient is seen, examined at bedside. case discussed with resident , in morning ICU rounds. Admitted with respiratory failure, hypoxemia, COPD exacerbation, Pulmonary hypertension, severe TR, normal LVF.Id follow up for optimization of appropriate antibiotics. monitor respiratory status. agree with plan of care as detailed in resident's note. CCU Objective - Vital Signs / Intake & Output Vital Signs (Last 4 hours): Vital Signs Temp Pulse Resp BP Pulse Ox 06/12/17 12:00 98.1 F 70 21 129/59 L 100 06/12/17 10:00 64 27 H 114/64 97 06/12/17 08:37 109/60 Intake and Output (Last 8hrs): Intake & Output 06/11/17 06/12/17 06/12/17 22:59 06:59 14:59 Intake Total 435 510 Output Total 500 Balance -65 510 Weight 100 lb 4.438 oz 114 lb Intake: IV 75 Intake, Piggyback 300 150 Oral 60 360 Output: Urine 500 Urethral (Rao) 500 - Medications Active Medications: Active Medications Generic Name Dose Route Start Last Admin Trade Name Freq PRN Reason Stop Dose Admin Albuterol/Ipratropium 3 ml 06/12/17 00:00 06/12/17 11:05 Duoneb 3 Mg/0.5 Mg (3 Ml) Ud INH 3 ml RQ4 CHUY Administration Azithromycin 500 mg/ Sodium 250 mls @ 250 mls/hr 06/12/17 22:00 Chloride IVPB DAILY@2200 CHUY Protocol Sodium Chloride 1,000 mls @ 75 mls/hr 06/11/17 18:45 06/12/17 03:15 Sodium Chloride 0.9% IV 06/12/17 18:33 75 mls/hr .[id number] CHUY Administration Vancomycin HCl 500 mg/ Sodium 100 mls @ 100 mls/hr 06/11/17 18:45 06/12/17 05 :44 Chloride IVPB 100 mls/hr Q12H CHUY Administration Protocol Methylprednisolone 60 mg/ 50 mls @ 100 mls/hr 06/12/17 01:00 06/12/17 08:33 Sodium Chloride IVPB 100 mls/hr Q8 CHUY Administration Meropenem 500 mg/ Sodium 100 mls @ 100 mls/hr 06/12/17 04:00 06/12/17 03:49 Chloride IVPB 100 mls/hr Q8@0400,1200,2000 [facility] Administration Protocol Piperacillin Sod/Tazobactam 100 mls @ 100 mls/hr 06/12/17 03:00 06/12/17 12: 09 Sod 3.375 gm/ Sodium Chloride IVPB 100 mls/hr Q8@0300,1100,1900 [facility] Administration Protocol Insulin Human Lispro 0 units 06/12/17 07:30 06/12/17 12:07 Humalog SC 2 u ACHS CHUY Administration Protocol - Patient Studies Lab Studies: Microbiology Studies 06/11/17 17:10 Urine Culture - Final Urine No Growth (<1,000 CFU/ML) Lab Studies 06/12/17 06/12/17 06/12/17 Range/Units 11:13 05:19 05:14 WBC (4.8-10.8) K/uL RBC (3.80-5.20) Mil/uL Hgb (12.0-16.0) g/dL Hct (34.0-47.0) % MCV (81.0-99.0) fl MCH (27.0-31.0) pg MCHC (33.0-37.0) g/dL RDW (11.5-14.5) % Plt Count (130-400) K/uL MPV (7.2-11.7) fl Neut % (Auto) (50.0-75.0) % Lymph % (Auto) (20.0-40.0) % [place] % (Auto) (0.0-10.0) % Eos % (Auto) (0.0-4.0) % Baso % (Auto) (0.0-2.0) % Neut # (1.8-7.0) K/uL Lymph # (1.0-4.3) K/uL [place] # (0.0-0.8) K/uL Eos # (0.0-0.7) K/uL Baso # (0.0-0.2) K/uL Neutrophils % (Manual) (42-75) % Lymphocytes % (Manual) (20-50) % Monocytes % (Manual) (0-10) % Platelet Estimate (NORMAL) Large Platelets Giant Platelets Polychromasia Hypochromasia (manual) Anisocytosis (manual) Tear Drop Cells Ovalocytes Schistocytes PT (9.8-13.1) Seconds INR (0.9-1.2) APTT (25.6-37.1) Seconds pCO2 40 (35-45) mm/Hg pO2 108 H (80-100) mm/Hg HCO3 30.7 H (21-28) mmol/L ABG pH 7.50 H (7.35-7.45) ABG Total CO2 32.4 H (22-28) mmol/L ABG O2 Saturation 100.2 H (95-98) % ABG O2 Content 12.6 L (15-23) ML/dL ABG Base Excess 7.4 H (-2.0-3.0) mmol/L ABG Hemoglobin 9.1 L (11.7-17.4) g/dL ABG Carboxyhemoglobin 1.7 H (0.5-1.5) % POC ABG HHb (Measured) -0.2 L (0.0-5.0) % ABG Methemoglobin 1.3 (0.0-3.0) % ABG O2 Capacity 12.6 L (16-24) mL/dL Kermit Test Yes ABG Potassium (3.6-5.2) mmol/L VBG pH (7.32-7.43) VBG pCO2 (40-60) mmHg VBG HCO3 mmol/L VBG Total CO2 (22-28) mmol/L VBG O2 Sat (Calc) (40-65) % VBG Base Excess (0.0-2.0) mmol/L VBG Potassium (3.6-5.2) mmol/L A-a O2 Difference 42.0 mm/Hg Hgb O2 Saturation 97.2 (95.0-98.0) % Sodium (132-148) mmol/L Chloride (98-107) mmol/L Glucose (65-105) mg/dL Lactate (0.7-2.1) mmol/L Vent Mode 2lnc FiO2 28.0 % Blood Gas Comments Crit Value Called To Crit Value Called By Crit Value Read Back Blood Gas Notified Time Potassium (3.6-5.0) MMOL/L Carbon Dioxide (22-30) mmol/L Anion Gap (10-20) BUN (7-17) mg/dl Creatinine (0.7-1.2) mg/dL Est GFR ( Amer) Est GFR (Non-Af Amer) POC Glucose (mg/dL) 248 H 204 H (65-110) mg/dL Random Glucose (65-105) mg/dL Calcium (8.4-10.2) mg/dL Phosphorus (2.5-4.5) mg/dl Magnesium (1.6-2.3) MG/DL Total Bilirubin (0.2-1.3) mg/dl AST (14-36) U/L ALT (9-52) U/L Alkaline Phosphatase (38-126) U/L Troponin I (0.00-0.120) ng/mL NT-Pro-B Natriuret Pep (0-900) pg/ml Total Protein (6.3-8.2) G/DL Albumin (3.5-5.0) g/dL Globulin (2.2-3.9) gm/dL Albumin/Globulin Ratio (1.0-2.1) Arterial Blood Potassium (3.6-5.2) mmol/L Venous Blood Potassium (3.6-5.2) mmol/L Urine Color (YELLOW) Urine Clarity (Clear) Urine pH (5.0-8.0) Ur Specific [place] (1.003-1.030) Urine Protein (NEGATIVE) mg/dL Urine Glucose (UA) (Normal) mg/dL Urine Ketones (NEGATIVE) mg/dL Urine Blood (NEGATIVE) Urine Nitrate (NEGATIVE) Urine Bilirubin (NEGATIVE) Urine Urobilinogen (0.2-1.0) mg/dL Ur Leukocyte Esterase (Negative) Artie/uL Urine RBC (Auto) (0-3) /hpf Urine Microscopic WBC (0-5) /hpf Ur Squamous Epith Cells (0-5) /hpf Urine Bacteria (<OCC) Hyaline Casts (0-2) /hpf Digoxin (0.8-2.0) ng/mL Influenza Typ A,B (EIA) (NEGATIVE) 06/12/17 06/12/17 06/11/17 Range/Units 04:35 04:35 19:46 WBC 7.7 (4.8-10.8) K/uL RBC 3.11 L (3.80-5.20) Mil/uL Hgb 9.1 L (12.0-16.0) g/dL Hct 28.4 L (34.0-47.0) % MCV 91.2 (81.0-99.0) fl MCH 29.2 (27.0-31.0) pg MCHC 32.1 L (33.0-37.0) g/dL RDW 17.2 H (11.5-14.5) % Plt Count 269 (130-400) K/uL MPV 10.5 (7.2-11.7) fl Neut % (Auto) 92.4 H (50.0-75.0) % Lymph % (Auto) 5.1 L (20.0-40.0) % [place] % (Auto) 2.3 (0.0-10.0) % Eos % (Auto) 0.0 (0.0-4.0) % Baso % (Auto) 0.2 (0.0-2.0) % Neut # 7.1 H (1.8-7.0) K/uL Lymph # 0.4 L (1.0-4.3) K/uL [place] # 0.2 (0.0-0.8) K/uL Eos # 0.0 (0.0-0.7) K/uL Baso # 0.0 (0.0-0.2) K/uL Neutrophils % (Manual) 88 H (42-75) % Lymphocytes % (Manual) 10 L (20-50) % Monocytes % (Manual) 2 (0-10) % Platelet Estimate Normal (NORMAL) Large Platelets Present Giant Platelets Present Polychromasia Slight Hypochromasia (manual) Slight Anisocytosis (manual) Slight Tear Drop Cells Slight Ovalocytes Slight Schistocytes Slight PT (9.8-13.1) Seconds INR (0.9-1.2) APTT (25.6-37.1) Seconds pCO2 (35-45) mm/Hg pO2 56 H (80-100) mm/Hg HCO3 (21-28) mmol/L ABG pH (7.35-7.45) ABG Total CO2 (22-28) mmol/L ABG O2 Saturation (95-98) % ABG O2 Content (15-23) ML/dL ABG Base Excess (-2.0-3.0) mmol/L ABG Hemoglobin (11.7-17.4) g/dL ABG Carboxyhemoglobin (0.5-1.5) % POC ABG HHb (Measured) (0.0-5.0) % ABG Methemoglobin (0.0-3.0) % ABG O2 Capacity (16-24) mL/dL Kermit Test ABG Potassium (3.6-5.2) mmol/L VBG pH 7.44 H (7.32-7.43) VBG pCO2 43 (40-60) mmHg VBG HCO3 28.2 mmol/L VBG Total CO2 30.5 H (22-28) mmol/L VBG O2 Sat (Calc) 93.4 H (40-65) % VBG Base Excess 4.4 H (0.0-2.0) mmol/L VBG Potassium 3.0 L (3.6-5.2) mmol/L A-a O2 Difference mm/Hg Hgb O2 Saturation (95.0-98.0) % Sodium 142 141.0 (132-148) mmol/L Chloride 103 102.0 (98-107) mmol/L Glucose 248 H (65-105) mg/dL Lactate 4.4 H* (0.7-2.1) mmol/L Vent Mode FiO2 21.0 % Blood Gas Comments Crit Value Called To Cinthya fernandez Crit Value Called By José Luis Crit Value Read Back Y Blood Gas Notified Time 1957 Potassium 3.3 L (3.6-5.0) MMOL/L Carbon Dioxide 27 (22-30) mmol/L Anion Gap 15 (10-20) BUN 47 H (7-17) mg/dl Creatinine 0.9 (0.7-1.2) mg/dL Est GFR ( Amer) > 60 Est GFR (Non-Af Amer) 60 POC Glucose (mg/dL) (65-110) mg/dL Random Glucose 188 H (65-105) mg/dL Calcium 9.0 (8.4-10.2) mg/dL Phosphorus (2.5-4.5) mg/dl Magnesium (1.6-2.3) MG/DL Total Bilirubin 0.4 (0.2-1.3) mg/dl AST 47 H D (14-36) U/L ALT 64 H D (9-52) U/L Alkaline Phosphatase 75 (38-126) U/L Troponin I (0.00-0.120) ng/mL NT-Pro-B Natriuret Pep (0-900) pg/ml Total Protein 5.6 L (6.3-8.2) G/DL Albumin 3.1 L D (3.5-5.0) g/dL Globulin 2.5 (2.2-3.9) gm/dL Albumin/Globulin Ratio 1.2 (1.0-2.1) Arterial Blood Potassium (3.6-5.2) mmol/L Venous Blood Potassium 3.0 L (3.6-5.2) mmol/L Urine Color (YELLOW) Urine Clarity (Clear) Urine pH (5.0-8.0) Ur Specific [place] (1.003-1.030) Urine Protein (NEGATIVE) mg/dL Urine Glucose (UA) (Normal) mg/dL Urine Ketones (NEGATIVE) mg/dL Urine Blood (NEGATIVE) Urine Nitrate (NEGATIVE) Urine Bilirubin (NEGATIVE) Urine Urobilinogen (0.2-1.0) mg/dL Ur Leukocyte Esterase (Negative) Artie/uL Urine RBC (Auto) (0-3) /hpf Urine Microscopic WBC (0-5) /hpf Ur Squamous Epith Cells (0-5) /hpf Urine Bacteria (<OCC) Hyaline Casts (0-2) /hpf Digoxin (0.8-2.0) ng/mL Influenza Typ A,B (EIA) (NEGATIVE) 06/11/17 06/11/17 06/11/17 Range/Units 17:10 16:54 16:54 WBC (4.8-10.8) K/uL RBC (3.80-5.20) Mil/uL Hgb (12.0-16.0) g/dL Hct (34.0-47.0) % MCV (81.0-99.0) fl MCH (27.0-31.0) pg MCHC (33.0-37.0) g/dL RDW (11.5-14.5) % Plt Count (130-400) K/uL MPV (7.2-11.7) fl Neut % (Auto) (50.0-75.0) % Lymph % (Auto) (20.0-40.0) % [place] % (Auto) (0.0-10.0) % Eos % (Auto) (0.0-4.0) % Baso % (Auto) (0.0-2.0) % Neut # (1.8-7.0) K/uL Lymph # (1.0-4.3) K/uL [place] # (0.0-0.8) K/uL Eos # (0.0-0.7) K/uL Baso # (0.0-0.2) K/uL Neutrophils % (Manual) (42-75) % Lymphocytes % (Manual) (20-50) % Monocytes % (Manual) (0-10) % Platelet Estimate (NORMAL) Large Platelets Giant Platelets Polychromasia Hypochromasia (manual) Anisocytosis (manual) Tear Drop Cells Ovalocytes Schistocytes PT (9.8-13.1) Seconds INR (0.9-1.2) APTT (25.6-37.1) Seconds pCO2 (35-45) mm/Hg pO2 (80-100) mm/Hg HCO3 (21-28) mmol/L ABG pH (7.35-7.45) ABG Total CO2 (22-28) mmol/L ABG O2 Saturation (95-98) % ABG O2 Content (15-23) ML/dL ABG Base Excess (-2.0-3.0) mmol/L ABG Hemoglobin (11.7-17.4) g/dL ABG Carboxyhemoglobin (0.5-1.5) % POC ABG HHb (Measured) (0.0-5.0) % ABG Methemoglobin (0.0-3.0) % ABG O2 Capacity (16-24) mL/dL Kermit Test ABG Potassium (3.6-5.2) mmol/L VBG pH (7.32-7.43) VBG pCO2 (40-60) mmHg VBG HCO3 mmol/L VBG Total CO2 (22-28) mmol/L VBG O2 Sat (Calc) (40-65) % VBG Base Excess (0.0-2.0) mmol/L VBG Potassium (3.6-5.2) mmol/L A-a O2 Difference mm/Hg Hgb O2 Saturation (95.0-98.0) % Sodium (132-148) mmol/L Chloride (98-107) mmol/L Glucose (65-105) mg/dL Lactate (0.7-2.1) mmol/L Vent Mode FiO2 % Blood Gas Comments Crit Value Called To Crit Value Called By Crit Value Read Back Blood Gas Notified Time Potassium (3.6-5.0) MMOL/L Carbon Dioxide (22-30) mmol/L Anion Gap (10-20) BUN (7-17) mg/dl Creatinine (0.7-1.2) mg/dL Est GFR ( Amer) Est GFR (Non-Af Amer) POC Glucose (mg/dL) (65-110) mg/dL Random Glucose (65-105) mg/dL Calcium (8.4-10.2) mg/dL Phosphorus (2.5-4.5) mg/dl Magnesium (1.6-2.3) MG/DL Total Bilirubin (0.2-1.3) mg/dl AST (14-36) U/L ALT (9-52) U/L Alkaline Phosphatase (38-126) U/L Troponin I (0.00-0.120) ng/mL NT-Pro-B Natriuret Pep (0-900) pg/ml Total Protein (6.3-8.2) G/DL Albumin (3.5-5.0) g/dL Globulin (2.2-3.9) gm/dL Albumin/Globulin Ratio (1.0-2.1) Arterial Blood Potassium (3.6-5.2) mmol/L Venous Blood Potassium (3.6-5.2) mmol/L Urine Color Yellow (YELLOW) Urine Clarity Slighty-cloudy (Clear) Urine pH 7.0 (5.0-8.0) Ur Specific [place] 1.011 (1.003-1.030) Urine Protein Negative (NEGATIVE) mg/dL Urine Glucose (UA) Neg (Normal) mg/dL Urine Ketones Negative (NEGATIVE) mg/dL Urine Blood Negative (NEGATIVE) Urine Nitrate Negative (NEGATIVE) Urine Bilirubin Negative (NEGATIVE) Urine Urobilinogen 0.2-1.0 (0.2-1.0) mg/dL Ur Leukocyte Esterase Neg (Negative) Artie/uL Urine RBC (Auto) < 1 (0-3) /hpf Urine Microscopic WBC 1 (0-5) /hpf Ur Squamous Epith Cells 1 (0-5) /hpf Urine Bacteria Rare (<OCC) Hyaline Casts 3-5 H (0-2) /hpf Digoxin 1.1 (0.8-2.0) ng/mL Influenza Typ A,B (EIA) Negative for flu a/b (NEGATIVE) 06/11/17 06/11/17 06/11/17 Range/Units 16:54 16:54 16:54 WBC 12.8 H (4.8-10.8) K/uL RBC 3.69 L (3.80-5.20) Mil/uL Hgb 10.6 L (12.0-16.0) g/dL Hct 33.9 L (34.0-47.0) % MCV 92.1 (81.0-99.0) fl MCH 28.7 (27.0-31.0) pg MCHC 31.2 L (33.0-37.0) g/dL RDW 17.1 H (11.5-14.5) % Plt Count 320 (130-400) K/uL MPV 10.5 (7.2-11.7) fl Neut % (Auto) 83.0 H (50.0-75.0) % Lymph % (Auto) 10.5 L (20.0-40.0) % [place] % (Auto) 6.2 (0.0-10.0) % Eos % (Auto) 0.0 (0.0-4.0) % Baso % (Auto) 0.3 (0.0-2.0) % Neut # 10.7 H (1.8-7.0) K/uL Lymph # 1.4 (1.0-4.3) K/uL [place] # 0.8 (0.0-0.8) K/uL Eos # 0.0 (0.0-0.7) K/uL Baso # 0.0 (0.0-0.2) K/uL Neutrophils % (Manual) (42-75) % Lymphocytes % (Manual) (20-50) % Monocytes % (Manual) (0-10) % Platelet Estimate (NORMAL) Large Platelets Giant Platelets Polychromasia Hypochromasia (manual) Anisocytosis (manual) Tear Drop Cells Ovalocytes Schistocytes PT 24.4 H (9.8-13.1) Seconds INR 2.1 H (0.9-1.2) APTT 33.8 (25.6-37.1) Seconds pCO2 (35-45) mm/Hg pO2 (80-100) mm/Hg HCO3 (21-28) mmol/L ABG pH (7.35-7.45) ABG Total CO2 (22-28) mmol/L ABG O2 Saturation (95-98) % ABG O2 Content (15-23) ML/dL ABG Base Excess (-2.0-3.0) mmol/L ABG Hemoglobin (11.7-17.4) g/dL ABG Carboxyhemoglobin (0.5-1.5) % POC ABG HHb (Measured) (0.0-5.0) % ABG Methemoglobin (0.0-3.0) % ABG O2 Capacity (16-24) mL/dL Kermit Test ABG Potassium (3.6-5.2) mmol/L VBG pH (7.32-7.43) VBG pCO2 (40-60) mmHg VBG HCO3 mmol/L VBG Total CO2 (22-28) mmol/L VBG O2 Sat (Calc) (40-65) % VBG Base Excess (0.0-2.0) mmol/L VBG Potassium (3.6-5.2) mmol/L A-a O2 Difference mm/Hg Hgb O2 Saturation (95.0-98.0) % Sodium 142 (132-148) mmol/L Chloride 99 (98-107) mmol/L Glucose (65-105) mg/dL Lactate (0.7-2.1) mmol/L Vent Mode FiO2 % Blood Gas Comments Crit Value Called To Crit Value Called By Crit Value Read Back Blood Gas Notified Time Potassium 3.6 (3.6-5.0) MMOL/L Carbon Dioxide 30 (22-30) mmol/L Anion Gap 17 (10-20) BUN 57 H (7-17) mg/dl Creatinine 1.0 (0.7-1.2) mg/dL Est GFR ( Amer) > 60 Est GFR (Non-Af Amer) 53 POC Glucose (mg/dL) (65-110) mg/dL Random Glucose 251 H (65-105) mg/dL Calcium 9.8 (8.4-10.2) mg/dL Phosphorus 3.8 (2.5-4.5) mg/dl Magnesium 1.8 (1.6-2.3) MG/DL Total Bilirubin 0.5 (0.2-1.3) mg/dl AST 71 H D (14-36) U/L ALT 89 H D (9-52) U/L Alkaline Phosphatase 106 (38-126) U/L Troponin I 0.0380 (0.00-0.120) ng/mL NT-Pro-B Natriuret Pep 8730 H (0-900) pg/ml Total Protein 6.8 (6.3-8.2) G/DL Albumin 3.9 (3.5-5.0) g/dL Globulin 2.9 (2.2-3.9) gm/dL Albumin/Globulin Ratio 1.3 (1.0-2.1) Arterial Blood Potassium (3.6-5.2) mmol/L Venous Blood Potassium (3.6-5.2) mmol/L Urine Color (YELLOW) Urine Clarity (Clear) Urine pH (5.0-8.0) Ur Specific [place] (1.003-1.030) Urine Protein (NEGATIVE) mg/dL Urine Glucose (UA) (Normal) mg/dL Urine Ketones (NEGATIVE) mg/dL Urine Blood (NEGATIVE) Urine Nitrate (NEGATIVE) Urine Bilirubin (NEGATIVE) Urine Urobilinogen (0.2-1.0) mg/dL Ur Leukocyte Esterase (Negative) Artie/uL Urine RBC (Auto) (0-3) /hpf Urine Microscopic WBC (0-5) /hpf Ur Squamous Epith Cells (0-5) /hpf Urine Bacteria (<OCC) Hyaline Casts (0-2) /hpf Digoxin (0.8-2.0) ng/mL Influenza Typ A,B (EIA) (NEGATIVE) 06/11/17 Range/Units 16:23 WBC (4.8-10.8) K/uL RBC (3.80-5.20) Mil/uL Hgb (12.0-16.0) g/dL Hct (34.0-47.0) % MCV (81.0-99.0) fl MCH (27.0-31.0) pg MCHC (33.0-37.0) g/dL RDW (11.5-14.5) % Plt Count (130-400) K/uL MPV (7.2-11.7) fl Neut % (Auto) (50.0-75.0) % Lymph % (Auto) (20.0-40.0) % [place] % (Auto) (0.0-10.0) % Eos % (Auto) (0.0-4.0) % Baso % (Auto) (0.0-2.0) % Neut # (1.8-7.0) K/uL Lymph # (1.0-4.3) K/uL [place] # (0.0-0.8) K/uL Eos # (0.0-0.7) K/uL Baso # (0.0-0.2) K/uL Neutrophils % (Manual) (42-75) % Lymphocytes % (Manual) (20-50) % Monocytes % (Manual) (0-10) % Platelet Estimate (NORMAL) Large Platelets Giant Platelets Polychromasia Hypochromasia (manual) Anisocytosis (manual) Tear Drop Cells Ovalocytes Schistocytes PT (9.8-13.1) Seconds INR (0.9-1.2) APTT (25.6-37.1) Seconds pCO2 35 (35-45) mm/Hg pO2 67 L (80-100) mm/Hg HCO3 28.1 H (21-28) mmol/L ABG pH 7.50 H (7.35-7.45) ABG Total CO2 28.4 H (22-28) mmol/L ABG O2 Saturation 98.0 (95-98) % ABG O2 Content (15-23) ML/dL ABG Base Excess 4.2 H (-2.0-3.0) mmol/L ABG Hemoglobin (11.7-17.4) g/dL ABG Carboxyhemoglobin (0.5-1.5) % POC ABG HHb (Measured) (0.0-5.0) % ABG Methemoglobin (0.0-3.0) % ABG O2 Capacity (16-24) mL/dL Kermit Test Yes ABG Potassium 3.7 (3.6-5.2) mmol/L VBG pH (7.32-7.43) VBG pCO2 (40-60) mmHg VBG HCO3 mmol/L VBG Total CO2 (22-28) mmol/L VBG O2 Sat (Calc) (40-65) % VBG Base Excess (0.0-2.0) mmol/L VBG Potassium (3.6-5.2) mmol/L A-a O2 Difference 39.0 mm/Hg Hgb O2 Saturation (95.0-98.0) % Sodium 138.0 (132-148) mmol/L Chloride 101.0 (98-107) mmol/L Glucose 292 H (65-105) mg/dL Lactate 4.2 H* (0.7-2.1) mmol/L Vent Mode FiO2 21.0 % Blood Gas Comments Copy given to rn Crit Value Called To Rn lennox chilel Crit Value Called By 292 Crit Value Read Back Y Blood Gas Notified Time 1634 Potassium (3.6-5.0) MMOL/L Carbon Dioxide (22-30) mmol/L Anion Gap (10-20) BUN (7-17) mg/dl Creatinine (0.7-1.2) mg/dL Est GFR ( Amer) Est GFR (Non-Af Amer) POC Glucose (mg/dL) (65-110) mg/dL Random Glucose (65-105) mg/dL Calcium (8.4-10.2) mg/dL Phosphorus (2.5-4.5) mg/dl Magnesium (1.6-2.3) MG/DL Total Bilirubin (0.2-1.3) mg/dl AST (14-36) U/L ALT (9-52) U/L Alkaline Phosphatase (38-126) U/L Troponin I (0.00-0.120) ng/mL NT-Pro-B Natriuret Pep (0-900) pg/ml Total Protein (6.3-8.2) G/DL Albumin (3.5-5.0) g/dL Globulin (2.2-3.9) gm/dL Albumin/Globulin Ratio (1.0-2.1) Arterial Blood Potassium 3.7 (3.6-5.2) mmol/L Venous Blood Potassium (3.6-5.2) mmol/L Urine Color (YELLOW) Urine Clarity (Clear) Urine pH (5.0-8.0) Ur Specific [place] (1.003-1.030) Urine Protein (NEGATIVE) mg/dL Urine Glucose (UA) (Normal) mg/dL Urine Ketones (NEGATIVE) mg/dL Urine Blood (NEGATIVE) Urine Nitrate (NEGATIVE) Urine Bilirubin (NEGATIVE) Urine Urobilinogen (0.2-1.0) mg/dL Ur Leukocyte Esterase (Negative) Artie/uL Urine RBC (Auto) (0-3) /hpf Urine Microscopic WBC (0-5) /hpf Ur Squamous Epith Cells (0-5) /hpf Urine Bacteria (<OCC) Hyaline Casts (0-2) /hpf Digoxin (0.8-2.0) ng/mL Influenza Typ A,B (EIA) (NEGATIVE) Laboratory Results - last 24 hr 06/11/17 06/11/17 06/11/17 16:23 16:54 16:54 WBC 12.8 H RBC 3.69 L Hgb 10.6 L Hct 33.9 L MCV 92.1 MCH 28.7 MCHC 31.2 L RDW 17.1 H Plt Count 320 MPV 10.5 Neut % (Auto) 83.0 H Lymph % (Auto) 10.5 L [place] % (Auto) 6.2 Eos % (Auto) 0.0 Baso % (Auto) 0.3 Neut # 10.7 H Lymph # 1.4 [place] # 0.8 Eos # 0.0 Baso # 0.0 Neutrophils % (Manual) Lymphocytes % (Manual) Monocytes % (Manual) Platelet Estimate Large Platelets Giant Platelets Polychromasia Hypochromasia (manual) Anisocytosis (manual) Tear Drop Cells Ovalocytes Schistocytes PT INR APTT pCO2 35 pO2 67 L HCO3 28.1 H ABG pH 7.50 H ABG Total CO2 28.4 H ABG O2 Saturation 98.0 ABG O2 Content ABG Base Excess 4.2 H ABG Hemoglobin ABG Carboxyhemoglobin POC ABG HHb (Measured) ABG Methemoglobin ABG O2 Capacity [place] Test Yes ABG Potassium 3.7 VBG pH VBG pCO2 VBG HCO3 VBG Total CO2 VBG O2 Sat (Calc) VBG Base Excess VBG Potassium A-a O2 Difference 39.0 Hgb O2 Saturation Sodium 138.0 142 Chloride 101.0 99 Glucose 292 H Lactate 4.2 H* Vent Mode FiO2 21.0 Blood Gas Comments Copy given to rn Crit Value Called To Rn lennox chilel Crit Value Called By 292 Crit Value Read Back Y Blood Gas Notified Time 1634 Potassium 3.6 Carbon Dioxide 30 Anion Gap 17 BUN 57 H Creatinine 1.0 Est GFR ( Amer) > 60 Est GFR (Non-Af Amer) 53 POC Glucose (mg/dL) Random Glucose 251 H Calcium 9.8 Phosphorus 3.8 Magnesium 1.8 Total Bilirubin 0.5 AST 71 H D ALT 89 H D Alkaline Phosphatase 106 Troponin I 0.0380 NT-Pro-B Natriuret Pep 8730 H Total Protein 6.8 Albumin 3.9 Globulin 2.9 Albumin/Globulin Ratio 1.3 Arterial Blood Potassium 3.7 Venous Blood Potassium Urine Color Urine Clarity Urine pH Ur Specific [place] Urine Protein Urine Glucose (UA) Urine Ketones Urine Blood Urine Nitrate Urine Bilirubin Urine Urobilinogen Ur Leukocyte Esterase Urine RBC (Auto) Urine Microscopic WBC Ur Squamous Epith Cells Urine Bacteria Hyaline Casts Digoxin Influenza Typ A,B (EIA) 06/11/17 06/11/17 06/11/17 16:54 16:54 16:54 WBC RBC Hgb Hct MCV MCH MCHC RDW Plt Count MPV Neut % (Auto) Lymph % (Auto) [place] % (Auto) Eos % (Auto) Baso % (Auto) Neut # Lymph # [place] # Eos # Baso # Neutrophils % (Manual) Lymphocytes % (Manual) Monocytes % (Manual) Platelet Estimate Large Platelets Giant Platelets Polychromasia Hypochromasia (manual) Anisocytosis (manual) Tear Drop Cells Ovalocytes Schistocytes PT 24.4 H INR 2.1 H APTT 33.8 pCO2 pO2 HCO3 ABG pH ABG Total CO2 ABG O2 Saturation ABG O2 Content ABG Base Excess ABG Hemoglobin ABG Carboxyhemoglobin POC ABG HHb (Measured) ABG Methemoglobin ABG O2 Capacity [place] Test ABG Potassium VBG pH VBG pCO2 VBG HCO3 VBG Total CO2 VBG O2 Sat (Calc) VBG Base Excess VBG Potassium A-a O2 Difference Hgb O2 Saturation Sodium Chloride Glucose Lactate Vent Mode FiO2 Blood Gas Comments Crit Value Called To Crit Value Called By Crit Value Read Back Blood Gas Notified Time Potassium Carbon Dioxide Anion Gap BUN Creatinine Est GFR ( Amer) Est GFR (Non-Af Amer) POC Glucose (mg/dL) Random Glucose Calcium Phosphorus Magnesium Total Bilirubin AST ALT Alkaline Phosphatase Troponin I NT-Pro-B Natriuret Pep Total Protein Albumin Globulin Albumin/Globulin Ratio Arterial Blood Potassium Venous Blood Potassium Urine Color Urine Clarity Urine pH Ur Specific [place] Urine Protein Urine Glucose (UA) Urine Ketones Urine Blood Urine Nitrate Urine Bilirubin Urine Urobilinogen Ur Leukocyte Esterase Urine RBC (Auto) Urine Microscopic WBC Ur Squamous Epith Cells Urine Bacteria Hyaline Casts Digoxin 1.1 Influenza Typ A,B (EIA) Negative for flu a/b 06/11/17 06/11/17 06/12/17 17:10 19:46 04:35 WBC 7.7 RBC 3.11 L Hgb 9.1 L Hct 28.4 L MCV 91.2 MCH 29.2 MCHC 32.1 L RDW 17.2 H Plt Count 269 MPV 10.5 Neut % (Auto) 92.4 H Lymph % (Auto) 5.1 L [place] % (Auto) 2.3 Eos % (Auto) 0.0 Baso % (Auto) 0.2 Neut # 7.1 H Lymph # 0.4 L [place] # 0.2 Eos # 0.0 Baso # 0.0 Neutrophils % (Manual) 88 H Lymphocytes % (Manual) 10 L Monocytes % (Manual) 2 Platelet Estimate Normal Large Platelets Present Giant Platelets Present Polychromasia Slight Hypochromasia (manual) Slight Anisocytosis (manual) Slight Tear Drop Cells Slight Ovalocytes Slight Schistocytes Slight PT INR APTT pCO2 pO2 56 H HCO3 ABG pH ABG Total CO2 ABG O2 Saturation ABG O2 Content ABG Base Excess ABG Hemoglobin ABG Carboxyhemoglobin POC ABG HHb (Measured) ABG Methemoglobin ABG O2 Capacity [place] Test ABG Potassium VBG pH 7.44 H VBG pCO2 43 VBG HCO3 28.2 VBG Total CO2 30.5 H VBG O2 Sat (Calc) 93.4 H VBG Base Excess 4.4 H VBG Potassium 3.0 L A-a O2 Difference Hgb O2 Saturation Sodium 141.0 Chloride 102.0 Glucose 248 H Lactate 4.4 H* Vent Mode FiO2 21.0 Blood Gas Comments Crit Value Called To Cinthya fernandez Crit Value Called By José Luis Crit Value Read Back Y Blood Gas Notified Time 1957 Potassium Carbon Dioxide Anion Gap BUN Creatinine Est GFR ( Amer) Est GFR (Non-Af Amer) POC Glucose (mg/dL) Random Glucose Calcium Phosphorus Magnesium Total Bilirubin AST ALT Alkaline Phosphatase Troponin I NT-Pro-B Natriuret Pep Total Protein Albumin Globulin Albumin/Globulin Ratio Arterial Blood Potassium Venous Blood Potassium 3.0 L Urine Color Yellow Urine Clarity Slighty-cloudy Urine pH 7.0 Ur Specific [place] 1.011 Urine Protein Negative Urine Glucose (UA) Neg Urine Ketones Negative Urine Blood Negative Urine Nitrate Negative Urine Bilirubin Negative Urine Urobilinogen 0.2-1.0 Ur Leukocyte Esterase Neg Urine RBC (Auto) < 1 Urine Microscopic WBC 1 Ur Squamous Epith Cells 1 Urine Bacteria Rare Hyaline Casts 3-5 H Digoxin Influenza Typ A,B (EIA) 06/12/17 06/12/17 06/12/17 04:35 05:14 05:19 WBC RBC Hgb Hct MCV MCH MCHC RDW Plt Count MPV Neut % (Auto) Lymph % (Auto) [place] % (Auto) Eos % (Auto) Baso % (Auto) Neut # Lymph # [place] # Eos # Baso # Neutrophils % (Manual) Lymphocytes % (Manual) Monocytes % (Manual) Platelet Estimate Large Platelets Giant Platelets Polychromasia Hypochromasia (manual) Anisocytosis (manual) Tear Drop Cells Ovalocytes Schistocytes PT INR APTT pCO2 40 pO2 108 H HCO3 30.7 H ABG pH 7.50 H ABG Total CO2 32.4 H ABG O2 Saturation 100.2 H ABG O2 Content 12.6 L ABG Base Excess 7.4 H ABG Hemoglobin 9.1 L ABG Carboxyhemoglobin 1.7 H POC ABG HHb (Measured) -0.2 L ABG Methemoglobin 1.3 ABG O2 Capacity 12.6 L [place] Test Yes ABG Potassium VBG pH VBG pCO2 VBG HCO3 VBG Total CO2 VBG O2 Sat (Calc) VBG Base Excess VBG Potassium A-a O2 Difference 42.0 Hgb O2 Saturation 97.2 Sodium 142 Chloride 103 Glucose Lactate Vent Mode 2lnc FiO2 28.0 Blood Gas Comments Crit Value Called To Crit Value Called By Crit Value Read Back Blood Gas Notified Time Potassium 3.3 L Carbon Dioxide 27 Anion Gap 15 BUN 47 H Creatinine 0.9 Est GFR ( Amer) > 60 Est GFR (Non-Af Amer) 60 POC Glucose (mg/dL) 204 H Random Glucose 188 H Calcium 9.0 Phosphorus Magnesium Total Bilirubin 0.4 AST 47 H D ALT 64 H D Alkaline Phosphatase 75 Troponin I NT-Pro-B Natriuret Pep Total Protein 5.6 L Albumin 3.1 L D Globulin 2.5 Albumin/Globulin Ratio 1.2 Arterial Blood Potassium Venous Blood Potassium Urine Color Urine Clarity Urine pH Ur Specific [place] Urine Protein Urine Glucose (UA) Urine Ketones Urine Blood Urine Nitrate Urine Bilirubin Urine Urobilinogen Ur Leukocyte Esterase Urine RBC (Auto) Urine Microscopic WBC Ur Squamous Epith Cells Urine Bacteria Hyaline Casts Digoxin Influenza Typ A,B (EIA) 06/12/17 11:13 WBC RBC Hgb Hct MCV MCH MCHC RDW Plt Count MPV Neut % (Auto) Lymph % (Auto) [place] % (Auto) Eos % (Auto) Baso % (Auto) Neut # Lymph # [place] # Eos # Baso # Neutrophils % (Manual) Lymphocytes % (Manual) Monocytes % (Manual) Platelet Estimate Large Platelets Giant Platelets Polychromasia Hypochromasia (manual) Anisocytosis (manual) Tear Drop Cells Ovalocytes Schistocytes PT INR APTT pCO2 pO2 HCO3 ABG pH ABG Total CO2 ABG O2 Saturation ABG O2 Content ABG Base Excess ABG Hemoglobin ABG Carboxyhemoglobin POC ABG HHb (Measured) ABG Methemoglobin ABG O2 Capacity Kermit Test ABG Potassium VBG pH VBG pCO2 VBG HCO3 VBG Total CO2 VBG O2 Sat (Calc) VBG Base Excess VBG Potassium A-a O2 Difference Hgb O2 Saturation Sodium Chloride Glucose Lactate Vent Mode FiO2 Blood Gas Comments Crit Value Called To Crit Value Called By Crit Value Read Back Blood Gas Notified Time Potassium Carbon Dioxide Anion Gap BUN Creatinine Est GFR ( Amer) Est GFR (Non-Af Amer) POC Glucose (mg/dL) 248 H Random Glucose Calcium Phosphorus Magnesium Total Bilirubin AST ALT Alkaline Phosphatase Troponin I NT-Pro-B Natriuret Pep Total Protein Albumin Globulin Albumin/Globulin Ratio Arterial Blood Potassium Venous Blood Potassium Urine Color Urine Clarity Urine pH Ur Specific [place] Urine Protein Urine Glucose (UA) Urine Ketones Urine Blood Urine Nitrate Urine Bilirubin Urine Urobilinogen Ur Leukocyte Esterase Urine RBC (Auto) Urine Microscopic WBC Ur Squamous Epith Cells Urine Bacteria Hyaline Casts Digoxin Influenza Typ A,B (EIA) EKG/Cardiology Studies: Cardiology / EKG Studies 06/11/17 16:09 ELECTROCARDIOGRAM Stat Comment: Mode Of Transportation: Reason For Exam: Sepsis Patient Critical Care Progress Note - Nutrition Nutrition: Nutrition Category Date Time Status Heart Healthy Diet [DIET] Diets 06/12/17 Breakfast Active
[2017-06-12 09:41] LABS: NEUTROPHIL 88 % (42-75); TOTAL CELLS COUNTED 100
[2017-06-12 09:42] LABS: GIANT PLATELETS PRESENT; LARGE PLATELETS PRESENT
--- NOTE | 2017-06-12 12:45 | CARD ---
APPROVED REPORT EKG Measurement Heart [id number] <Conclusion> Atrial-sensed ventricular-paced rhythm with prolonged AV conduction Abnormal ECG
--- NOTE | 2017-06-12 14:56 | CP.PCM.HP ---
<Gerhard Burrows - Last Filed: 06/12/17 16:08> Meds Allergies/Adverse Reactions: Allergies Allergy/AdvReac Type Severity Reaction Status Date / Time No Known Allergies Allergy Verified 02/15/17 00:37 Results - Vital Signs Recent Vital Signs: Last Vital Signs Temp 98.1 F 06/12/17 12:00 Pulse 69 06/12/17 14:00 Resp 25 H 06/12/17 14:00 BP 115/60 06/12/17 14:00 Pulse Ox 100 06/12/17 14:00 - Labs Result Diagrams: 06/12/17 04:35 06/12/17 04:35 Labs: Laboratory Results - last 24 hr 06/11/17 06/11/17 06/11/17 16:23 16:54 16:54 WBC 12.8 H RBC 3.69 L Hgb 10.6 L Hct 33.9 L MCV 92.1 MCH 28.7 MCHC 31.2 L RDW 17.1 H Plt Count 320 MPV 10.5 Neut % (Auto) 83.0 H Lymph % (Auto) 10.5 L [place] % (Auto) 6.2 Eos % (Auto) 0.0 Baso % (Auto) 0.3 Neut # 10.7 H Lymph # 1.4 [place] # 0.8 Eos # 0.0 Baso # 0.0 Neutrophils % (Manual) Lymphocytes % (Manual) Monocytes % (Manual) Platelet Estimate Large Platelets Giant Platelets Polychromasia Hypochromasia (manual) Anisocytosis (manual) Tear Drop Cells Ovalocytes Schistocytes PT INR APTT pCO2 35 pO2 67 L HCO3 28.1 H ABG pH 7.50 H ABG Total CO2 28.4 H ABG O2 Saturation 98.0 ABG O2 Content ABG Base Excess 4.2 H ABG Hemoglobin ABG Carboxyhemoglobin POC ABG HHb (Measured) ABG Methemoglobin ABG O2 Capacity Kermit Test Yes ABG Potassium 3.7 VBG pH VBG pCO2 VBG HCO3 VBG Total CO2 VBG O2 Sat (Calc) VBG Base Excess VBG Potassium A-a O2 Difference 39.0 Hgb O2 Saturation Sodium 138.0 142 Chloride 101.0 99 Glucose 292 H Lactate 4.2 H* Vent Mode FiO2 21.0 Blood Gas Comments Copy given to rn Crit Value Called To Rn lennox chilel Crit Value Called By 292 Crit Value Read Back Y Blood Gas Notified Time 1634 Potassium 3.6 Carbon Dioxide 30 Anion Gap 17 BUN 57 H Creatinine 1.0 Est GFR ( Amer) > 60 Est GFR (Non-Af Amer) 53 POC Glucose (mg/dL) Random Glucose 251 H Calcium 9.8 Phosphorus 3.8 Magnesium 1.8 Total Bilirubin 0.5 AST 71 H D ALT 89 H D Alkaline Phosphatase 106 Troponin I 0.0380 NT-Pro-B Natriuret Pep 8730 H Total Protein 6.8 Albumin 3.9 Globulin 2.9 Albumin/Globulin Ratio 1.3 Arterial Blood Potassium 3.7 Venous Blood Potassium Urine Color Urine Clarity Urine pH Ur Specific [place] Urine Protein Urine Glucose (UA) Urine Ketones Urine Blood Urine Nitrate Urine Bilirubin Urine Urobilinogen Ur Leukocyte Esterase Urine RBC (Auto) Urine Microscopic WBC Ur Squamous Epith Cells Urine Bacteria Hyaline Casts Digoxin Influenza Typ A,B (EIA) 06/11/17 06/11/17 06/11/17 16:54 16:54 16:54 WBC RBC Hgb Hct MCV MCH MCHC RDW Plt Count MPV Neut % (Auto) Lymph % (Auto) [place] % (Auto) Eos % (Auto) Baso % (Auto) Neut # Lymph # [place] # Eos # Baso # Neutrophils % (Manual) Lymphocytes % (Manual) Monocytes % (Manual) Platelet Estimate Large Platelets Giant Platelets Polychromasia Hypochromasia (manual) Anisocytosis (manual) Tear Drop Cells Ovalocytes Schistocytes PT 24.4 H INR 2.1 H APTT 33.8 pCO2 pO2 HCO3 ABG pH ABG Total CO2 ABG O2 Saturation ABG O2 Content ABG Base Excess ABG Hemoglobin ABG Carboxyhemoglobin POC ABG HHb (Measured) ABG Methemoglobin ABG O2 Capacity Kermit Test ABG Potassium VBG pH VBG pCO2 VBG HCO3 VBG Total CO2 VBG O2 Sat (Calc) VBG Base Excess VBG Potassium A-a O2 Difference Hgb O2 Saturation Sodium Chloride Glucose Lactate Vent Mode FiO2 Blood Gas Comments Crit Value Called To Crit Value Called By Crit Value Read Back Blood Gas Notified Time Potassium Carbon Dioxide Anion Gap BUN Creatinine Est GFR ( Amer) Est GFR (Non-Af Amer) POC Glucose (mg/dL) Random Glucose Calcium Phosphorus Magnesium Total Bilirubin AST ALT Alkaline Phosphatase Troponin I NT-Pro-B Natriuret Pep Total Protein Albumin Globulin Albumin/Globulin Ratio Arterial Blood Potassium Venous Blood Potassium Urine Color Urine Clarity Urine pH Ur Specific [place] Urine Protein Urine Glucose (UA) Urine Ketones Urine Blood Urine Nitrate Urine Bilirubin Urine Urobilinogen Ur Leukocyte Esterase Urine RBC (Auto) Urine Microscopic WBC Ur Squamous Epith Cells Urine Bacteria Hyaline Casts Digoxin 1.1 Influenza Typ A,B (EIA) Negative for flu a/b 06/11/17 06/11/17 06/12/17 17:10 19:46 04:35 WBC 7.7 RBC 3.11 L Hgb 9.1 L Hct 28.4 L MCV 91.2 MCH 29.2 MCHC 32.1 L RDW 17.2 H Plt Count 269 MPV 10.5 Neut % (Auto) 92.4 H Lymph % (Auto) 5.1 L [place] % (Auto) 2.3 Eos % (Auto) 0.0 Baso % (Auto) 0.2 Neut # 7.1 H Lymph # 0.4 L [place] # 0.2 Eos # 0.0 Baso # 0.0 Neutrophils % (Manual) 88 H Lymphocytes % (Manual) 10 L Monocytes % (Manual) 2 Platelet Estimate Normal Large Platelets Present Giant Platelets Present Polychromasia Slight Hypochromasia (manual) Slight Anisocytosis (manual) Slight Tear Drop Cells Slight Ovalocytes Slight Schistocytes Slight PT INR APTT pCO2 pO2 56 H HCO3 ABG pH ABG Total CO2 ABG O2 Saturation ABG O2 Content ABG Base Excess ABG Hemoglobin ABG Carboxyhemoglobin POC ABG HHb (Measured) ABG Methemoglobin ABG O2 Capacity Kermit Test ABG Potassium VBG pH 7.44 H VBG pCO2 43 VBG HCO3 28.2 VBG Total CO2 30.5 H VBG O2 Sat (Calc) 93.4 H VBG Base Excess 4.4 H VBG Potassium 3.0 L A-a O2 Difference Hgb O2 Saturation Sodium 141.0 Chloride 102.0 Glucose 248 H Lactate 4.4 H* Vent Mode FiO2 21.0 Blood Gas Comments Crit Value Called To Cinthya fernandez Crit Value Called By 292 Crit Value Read Back Y Blood Gas Notified Time 1957 Potassium Carbon Dioxide Anion Gap BUN Creatinine Est GFR ( Amer) Est GFR (Non-Af Amer) POC Glucose (mg/dL) Random Glucose Calcium Phosphorus Magnesium Total Bilirubin AST ALT Alkaline Phosphatase Troponin I NT-Pro-B Natriuret Pep Total Protein Albumin Globulin Albumin/Globulin Ratio Arterial Blood Potassium Venous Blood Potassium 3.0 L Urine Color Yellow Urine Clarity Slighty-cloudy Urine pH 7.0 Ur Specific [place] 1.011 Urine Protein Negative Urine Glucose (UA) Neg Urine Ketones Negative Urine Blood Negative Urine Nitrate Negative Urine Bilirubin Negative Urine Urobilinogen 0.2-1.0 Ur Leukocyte Esterase Neg Urine RBC (Auto) < 1 Urine Microscopic WBC 1 Ur Squamous Epith Cells 1 Urine Bacteria Rare Hyaline Casts 3-5 H Digoxin Influenza Typ A,B (EIA) 06/12/17 06/12/17 06/12/17 04:35 05:14 05:19 WBC RBC Hgb Hct MCV MCH MCHC RDW Plt Count MPV Neut % (Auto) Lymph % (Auto) [place] % (Auto) Eos % (Auto) Baso % (Auto) Neut # Lymph # [place] # Eos # Baso # Neutrophils % (Manual) Lymphocytes % (Manual) Monocytes % (Manual) Platelet Estimate Large Platelets Giant Platelets Polychromasia Hypochromasia (manual) Anisocytosis (manual) Tear Drop Cells Ovalocytes Schistocytes PT INR APTT pCO2 40 pO2 108 H HCO3 30.7 H ABG pH 7.50 H ABG Total CO2 32.4 H ABG O2 Saturation 100.2 H ABG O2 Content 12.6 L ABG Base Excess 7.4 H ABG Hemoglobin 9.1 L ABG Carboxyhemoglobin 1.7 H POC ABG HHb (Measured) -0.2 L ABG Methemoglobin 1.3 ABG O2 Capacity 12.6 L Kermit Test Yes ABG Potassium VBG pH VBG pCO2 VBG HCO3 VBG Total CO2 VBG O2 Sat (Calc) VBG Base Excess VBG Potassium A-a O2 Difference 42.0 Hgb O2 Saturation 97.2 Sodium 142 Chloride 103 Glucose Lactate Vent Mode 2lnc FiO2 28.0 Blood Gas Comments Crit Value Called To Crit Value Called By Crit Value Read Back Blood Gas Notified Time Potassium 3.3 L Carbon Dioxide 27 Anion Gap 15 BUN 47 H Creatinine 0.9 Est GFR ( Amer) > 60 Est GFR (Non-Af Amer) 60 POC Glucose (mg/dL) 204 H Random Glucose 188 H Calcium 9.0 Phosphorus Magnesium Total Bilirubin 0.4 AST 47 H D ALT 64 H D Alkaline Phosphatase 75 Troponin I NT-Pro-B Natriuret Pep Total Protein 5.6 L Albumin 3.1 L D Globulin 2.5 Albumin/Globulin Ratio 1.2 Arterial Blood Potassium Venous Blood Potassium Urine Color Urine Clarity Urine pH Ur Specific [place] Urine Protein Urine Glucose (UA) Urine Ketones Urine Blood Urine Nitrate Urine Bilirubin Urine Urobilinogen Ur Leukocyte Esterase Urine RBC (Auto) Urine Microscopic WBC Ur Squamous Epith Cells Urine Bacteria Hyaline Casts Digoxin Influenza Typ A,B (EIA) 06/12/17 11:13 WBC RBC Hgb Hct MCV MCH MCHC RDW Plt Count MPV Neut % (Auto) Lymph % (Auto) [place] % (Auto) Eos % (Auto) Baso % (Auto) Neut # Lymph # [place] # Eos # Baso # Neutrophils % (Manual) Lymphocytes % (Manual) Monocytes % (Manual) Platelet Estimate Large Platelets Giant Platelets Polychromasia Hypochromasia (manual) Anisocytosis (manual) Tear Drop Cells Ovalocytes Schistocytes PT INR APTT pCO2 pO2 HCO3 ABG pH ABG Total CO2 ABG O2 Saturation ABG O2 Content ABG Base Excess ABG Hemoglobin ABG Carboxyhemoglobin POC ABG HHb (Measured) ABG Methemoglobin ABG O2 Capacity Kermit Test ABG Potassium VBG pH VBG pCO2 VBG HCO3 VBG Total CO2 VBG O2 Sat (Calc) VBG Base Excess VBG Potassium A-a O2 Difference Hgb O2 Saturation Sodium Chloride Glucose Lactate Vent Mode FiO2 Blood Gas Comments Crit Value Called To Crit Value Called By Crit Value Read Back Blood Gas Notified Time Potassium Carbon Dioxide Anion Gap BUN Creatinine Est GFR ( Amer) Est GFR (Non-Af Amer) POC Glucose (mg/dL) 248 H Random Glucose Calcium Phosphorus Magnesium Total Bilirubin AST ALT Alkaline Phosphatase Troponin I NT-Pro-B Natriuret Pep Total Protein Albumin Globulin Albumin/Globulin Ratio Arterial Blood Potassium Venous Blood Potassium Urine Color Urine Clarity Urine pH Ur Specific [place] Urine Protein Urine Glucose (UA) Urine Ketones Urine Blood Urine Nitrate Urine Bilirubin Urine Urobilinogen Ur Leukocyte Esterase Urine RBC (Auto) Urine Microscopic WBC Ur Squamous Epith Cells Urine Bacteria Hyaline Casts Digoxin Influenza Typ A,B (EIA) <Benedict Santana - Last Filed: 06/12/17 17:04> History of Present Illness - History of Present Illness History of Present Illness: 82 YO F w/ h/o of HTN, hypercholesterolemia, atrial fibrilation, bronchitis, CAD , Cardiac Arrhythmias, CHF, DM II was brought into the ER for dyspnea and productive cough. Patient has a nebulizer at home but did not help relieve her symptoms. Patient was noted to have a lactate of 4.4 in ER, and was admitted into ICU for sepsis. PMH: CHG, COPD, CVA/TIA, HLD, NIDDM Med: reviewed Allergy: NKDA Present on Admission - Present on Admission Any Indicators Present on Admission: No Past Patient History - Infectious Disease Hx of Infectious Diseases: None - Tetanus Immunizations Tetanus Immunization: Unknown - Past Medical History & Family History Past Medical History?: Yes - Past Social History Smoking Status: Never Smoked - CARDIAC Hx Cardiac Disorders: Yes (CAD/CHF/PVD/CABG/AFIB/Pacemaker/Edema/Valvular disease) Hx Atrial Fibrillation: Yes Hx Cardia Arrhythmia: Yes Hx Congestive Heart Failure: Yes Hx Hypercholesterolemia: Yes Hx Hypertension: Yes Hx Pacemaker: Yes Hx Peripheral Edema: Yes Hx Peripheral Vascular Disease: Yes - PULMONARY Hx Respiratory Disorders: Yes (COPD/Asthma/pneumonia) Hx Asthma: Yes Hx Chronic Obstructive Pulmonary Disease (COPD): Yes Hx Pneumonia: Yes - NEUROLOGICAL Hx Neurological Disorder: Yes (CVA/Dementia) HX Cerebrovascular Accident: Yes Hx Dementia: Yes Hx Parkinson's Disease: Yes Hx Transient Ischemic Attacks (TIA): Yes - HEENT Hx HEENT Problems: No - RENAL Hx Chronic Kidney Disease: No - ENDOCRINE/METABOLIC Hx Endocrine Disorders: Yes (DM) Hx Diabetes Mellitus Type 1: Yes - HEMATOLOGICAL/ONCOLOGICAL Hx Blood Disorders: Yes (Anemia) Hx Anemia: Yes - INTEGUMENTARY Hx Dermatological Problems: No - MUSCULOSKELETAL/RHEUMATOLOGICAL Hx Arthritis: Yes Hx Falls: Yes - GASTROINTESTINAL Hx Gastrointestinal Disorders: No - GENITOURINARY/GYNECOLOGICAL Hx Genitourinary Disorders: No - PSYCHIATRIC Hx Substance Use: No - SURGICAL HISTORY Hx Appendectomy: Yes Hx Carotid Endarterectomy: Yes Hx Cholecystectomy: Yes - ANESTHESIA Hx Anesthesia: Yes Hx Anesthesia Reactions: No Hx Malignant Hyperthermia: No Physical Exam - Constitutional Appears: No Acute Distress - Head Exam Head Exam: NORMAL INSPECTION - Eye Exam Eye Exam: Normal appearance - Respiratory Exam Respiratory Exam: Rales, Rhonchi, NORMAL BREATHING PATTERN - Cardiovascular Exam Cardiovascular Exam: REGULAR RHYTHM, +S1, +S2 - Extremities Exam Extremities exam: Positive for: normal inspection - Neurological Exam Neurological exam: Alert, Normal Gait, Oriented x3 - Skin Skin Exam: Normal Color, Warm Results - Vital Signs Recent Vital Signs: Last Vital Signs Temp 98.1 F 06/12/17 12:00 Pulse 69 06/12/17 14:00 Resp 25 H 06/12/17 14:00 BP 115/60 06/12/17 14:00 Pulse Ox 100 06/12/17 14:00 - Labs Result Diagrams: 06/12/17 04:35 06/12/17 04:35 Labs: Laboratory Results - last 24 hr 06/11/17 06/11/17 06/11/17 16:23 16:54 16:54 WBC 12.8 H RBC 3.69 L Hgb 10.6 L Hct 33.9 L MCV 92.1 MCH 28.7 MCHC 31.2 L RDW 17.1 H Plt Count 320 MPV 10.5 Neut % (Auto) 83.0 H Lymph % (Auto) 10.5 L [place] % (Auto) 6.2 Eos % (Auto) 0.0 Baso % (Auto) 0.3 Neut # 10.7 H Lymph # 1.4 [place] # 0.8 Eos # 0.0 Baso # 0.0 Neutrophils % (Manual) Lymphocytes % (Manual) Monocytes % (Manual) Platelet Estimate Large Platelets Giant Platelets Polychromasia Hypochromasia (manual) Anisocytosis (manual) Tear Drop Cells Ovalocytes Schistocytes PT INR APTT pCO2 35 pO2 67 L HCO3 28.1 H ABG pH 7.50 H ABG Total CO2 28.4 H ABG O2 Saturation 98.0 ABG O2 Content ABG Base Excess 4.2 H ABG Hemoglobin ABG Carboxyhemoglobin POC ABG HHb (Measured) ABG Methemoglobin ABG O2 Capacity Kermit Test Yes ABG Potassium 3.7 VBG pH VBG pCO2 VBG HCO3 VBG Total CO2 VBG O2 Sat (Calc) VBG Base Excess VBG Potassium A-a O2 Difference 39.0 Hgb O2 Saturation Sodium 138.0 142 Chloride 101.0 99 Glucose 292 H Lactate 4.2 H* Vent Mode FiO2 21.0 Blood Gas Comments Copy given to rn Crit Value Called To Rn lennox chilel Crit Value Called By 292 Crit Value Read Back Y Blood Gas Notified Time 1634 Potassium 3.6 Carbon Dioxide 30 Anion Gap 17 BUN 57 H Creatinine 1.0 Est GFR ( Amer) > 60 Est GFR (Non-Af Amer) 53 POC Glucose (mg/dL) Random Glucose 251 H Calcium 9.8 Phosphorus 3.8 Magnesium 1.8 Total Bilirubin 0.5 AST 71 H D ALT 89 H D Alkaline Phosphatase 106 Troponin I 0.0380 NT-Pro-B Natriuret Pep 8730 H Total Protein 6.8 Albumin 3.9 Globulin 2.9 Albumin/Globulin Ratio 1.3 Arterial Blood Potassium 3.7 Venous Blood Potassium Urine Color Urine Clarity Urine pH Ur Specific [place] Urine Protein Urine Glucose (UA) Urine Ketones Urine Blood Urine Nitrate Urine Bilirubin Urine Urobilinogen Ur Leukocyte Esterase Urine RBC (Auto) Urine Microscopic WBC Ur Squamous Epith Cells Urine Bacteria Hyaline Casts Digoxin Influenza Typ A,B (EIA) 06/11/17 06/11/17 06/11/17 16:54 16:54 16:54 WBC RBC Hgb Hct MCV MCH MCHC RDW Plt Count MPV Neut % (Auto) Lymph % (Auto) [place] % (Auto) Eos % (Auto) Baso % (Auto) Neut # Lymph # [place] # Eos # Baso # Neutrophils % (Manual) Lymphocytes % (Manual) Monocytes % (Manual) Platelet Estimate Large Platelets Giant Platelets Polychromasia Hypochromasia (manual) Anisocytosis (manual) Tear Drop Cells Ovalocytes Schistocytes PT 24.4 H INR 2.1 H APTT 33.8 pCO2 pO2 HCO3 ABG pH ABG Total CO2 ABG O2 Saturation ABG O2 Content ABG Base Excess ABG Hemoglobin ABG Carboxyhemoglobin POC ABG HHb (Measured) ABG Methemoglobin ABG O2 Capacity Kermit Test ABG Potassium VBG pH VBG pCO2 VBG HCO3 VBG Total CO2 VBG O2 Sat (Calc) VBG Base Excess VBG Potassium A-a O2 Difference Hgb O2 Saturation Sodium Chloride Glucose Lactate Vent Mode FiO2 Blood Gas Comments Crit Value Called To Crit Value Called By Crit Value Read Back Blood Gas Notified Time Potassium Carbon Dioxide Anion Gap BUN Creatinine Est GFR ( Amer) Est GFR (Non-Af Amer) POC Glucose (mg/dL) Random Glucose Calcium Phosphorus Magnesium Total Bilirubin AST ALT Alkaline Phosphatase Troponin I NT-Pro-B Natriuret Pep Total Protein Albumin Globulin Albumin/Globulin Ratio Arterial Blood Potassium Venous Blood Potassium Urine Color Urine Clarity Urine pH Ur Specific [place] Urine Protein Urine Glucose (UA) Urine Ketones Urine Blood Urine Nitrate Urine Bilirubin Urine Urobilinogen Ur Leukocyte Esterase Urine RBC (Auto) Urine Microscopic WBC Ur Squamous Epith Cells Urine Bacteria Hyaline Casts Digoxin 1.1 Influenza Typ A,B (EIA) Negative for flu a/b 06/11/17 06/11/17 06/12/17 17:10 19:46 04:35 WBC 7.7 RBC 3.11 L Hgb 9.1 L Hct 28.4 L MCV 91.2 MCH 29.2 MCHC 32.1 L RDW 17.2 H Plt Count 269 MPV 10.5 Neut % (Auto) 92.4 H Lymph % (Auto) 5.1 L [place] % (Auto) 2.3 Eos % (Auto) 0.0 Baso % (Auto) 0.2 Neut # 7.1 H Lymph # 0.4 L [place] # 0.2 Eos # 0.0 Baso # 0.0 Neutrophils % (Manual) 88 H Lymphocytes % (Manual) 10 L Monocytes % (Manual) 2 Platelet Estimate Normal Large Platelets Present Giant Platelets Present Polychromasia Slight Hypochromasia (manual) Slight Anisocytosis (manual) Slight Tear Drop Cells Slight Ovalocytes Slight Schistocytes Slight PT INR APTT pCO2 pO2 56 H HCO3 ABG pH ABG Total CO2 ABG O2 Saturation ABG O2 Content ABG Base Excess ABG Hemoglobin ABG Carboxyhemoglobin POC ABG HHb (Measured) ABG Methemoglobin ABG O2 Capacity Kermit Test ABG Potassium VBG pH 7.44 H VBG pCO2 43 VBG HCO3 28.2 VBG Total CO2 30.5 H VBG O2 Sat (Calc) 93.4 H VBG Base Excess 4.4 H VBG Potassium 3.0 L A-a O2 Difference Hgb O2 Saturation Sodium 141.0 Chloride 102.0 Glucose 248 H Lactate 4.4 H* Vent Mode FiO2 21.0 Blood Gas Comments Crit Value Called To Cinthya fernandez Crit Value Called By 292 Crit Value Read Back Y Blood Gas Notified Time 1957 Potassium Carbon Dioxide Anion Gap BUN Creatinine Est GFR ( Amer) Est GFR (Non-Af Amer) POC Glucose (mg/dL) Random Glucose Calcium Phosphorus Magnesium Total Bilirubin AST ALT Alkaline Phosphatase Troponin I NT-Pro-B Natriuret Pep Total Protein Albumin Globulin Albumin/Globulin Ratio Arterial Blood Potassium Venous Blood Potassium 3.0 L Urine Color Yellow Urine Clarity Slighty-cloudy Urine pH 7.0 Ur Specific [place] 1.011 Urine Protein Negative Urine Glucose (UA) Neg Urine Ketones Negative Urine Blood Negative Urine Nitrate Negative Urine Bilirubin Negative Urine Urobilinogen 0.2-1.0 Ur Leukocyte Esterase Neg Urine RBC (Auto) < 1 Urine Microscopic WBC 1 Ur Squamous Epith Cells 1 Urine Bacteria Rare Hyaline Casts 3-5 H Digoxin Influenza Typ A,B (EIA) 06/12/17 06/12/17 06/12/17 04:35 05:14 05:19 WBC RBC Hgb Hct MCV MCH MCHC RDW Plt Count MPV Neut % (Auto) Lymph % (Auto) [place] % (Auto) Eos % (Auto) Baso % (Auto) Neut # Lymph # [place] # Eos # Baso # Neutrophils % (Manual) Lymphocytes % (Manual) Monocytes % (Manual) Platelet Estimate Large Platelets Giant Platelets Polychromasia Hypochromasia (manual) Anisocytosis (manual) Tear Drop Cells Ovalocytes Schistocytes PT INR APTT pCO2 40 pO2 108 H HCO3 30.7 H ABG pH 7.50 H ABG Total CO2 32.4 H ABG O2 Saturation 100.2 H ABG O2 Content 12.6 L ABG Base Excess 7.4 H ABG Hemoglobin 9.1 L ABG Carboxyhemoglobin 1.7 H POC ABG HHb (Measured) -0.2 L ABG Methemoglobin 1.3 ABG O2 Capacity 12.6 L Kermit Test Yes ABG Potassium VBG pH VBG pCO2 VBG HCO3 VBG Total CO2 VBG O2 Sat (Calc) VBG Base Excess VBG Potassium A-a O2 Difference 42.0 Hgb O2 Saturation 97.2 Sodium 142 Chloride 103 Glucose Lactate Vent Mode 2lnc FiO2 28.0 Blood Gas Comments Crit Value Called To Crit Value Called By Crit Value Read Back Blood Gas Notified Time Potassium 3.3 L Carbon Dioxide 27 Anion Gap 15 BUN 47 H Creatinine 0.9 Est GFR ( Amer) > 60 Est GFR (Non-Af Amer) 60 POC Glucose (mg/dL) 204 H Random Glucose 188 H Calcium 9.0 Phosphorus Magnesium Total Bilirubin 0.4 AST 47 H D ALT 64 H D Alkaline Phosphatase 75 Troponin I NT-Pro-B Natriuret Pep Total Protein 5.6 L Albumin 3.1 L D Globulin 2.5 Albumin/Globulin Ratio 1.2 Arterial Blood Potassium Venous Blood Potassium Urine Color Urine Clarity Urine pH Ur Specific [place] Urine Protein Urine Glucose (UA) Urine Ketones Urine Blood Urine Nitrate Urine Bilirubin Urine Urobilinogen Ur Leukocyte Esterase Urine RBC (Auto) Urine Microscopic WBC Ur Squamous Epith Cells Urine Bacteria Hyaline Casts Digoxin Influenza Typ A,B (EIA) 06/12/17 11:13 WBC RBC Hgb Hct MCV MCH MCHC RDW Plt Count MPV Neut % (Auto) Lymph % (Auto) [place] % (Auto) Eos % (Auto) Baso % (Auto) Neut # Lymph # [place] # Eos # Baso # Neutrophils % (Manual) Lymphocytes % (Manual) Monocytes % (Manual) Platelet Estimate Large Platelets Giant Platelets Polychromasia Hypochromasia (manual) Anisocytosis (manual) Tear Drop Cells Ovalocytes Schistocytes PT INR APTT pCO2 pO2 HCO3 ABG pH ABG Total CO2 ABG O2 Saturation ABG O2 Content ABG Base Excess ABG Hemoglobin ABG Carboxyhemoglobin POC ABG HHb (Measured) ABG Methemoglobin ABG O2 Capacity Kermit Test ABG Potassium VBG pH VBG pCO2 VBG HCO3 VBG Total CO2 VBG O2 Sat (Calc) VBG Base Excess VBG Potassium A-a O2 Difference Hgb O2 Saturation Sodium Chloride Glucose Lactate Vent Mode FiO2 Blood Gas Comments Crit Value Called To Crit Value Called By Crit Value Read Back Blood Gas Notified Time Potassium Carbon Dioxide Anion Gap BUN Creatinine Est GFR ( Amer) Est GFR (Non-Af Amer) POC Glucose (mg/dL) 248 H Random Glucose Calcium Phosphorus Magnesium Total Bilirubin AST ALT Alkaline Phosphatase Troponin I NT-Pro-B Natriuret Pep Total Protein Albumin Globulin Albumin/Globulin Ratio Arterial Blood Potassium Venous Blood Potassium Urine Color Urine Clarity Urine pH Ur Specific [place] Urine Protein Urine Glucose (UA) Urine Ketones Urine Blood Urine Nitrate Urine Bilirubin Urine Urobilinogen Ur Leukocyte Esterase Urine RBC (Auto) Urine Microscopic WBC Ur Squamous Epith Cells Urine Bacteria Hyaline Casts Digoxin Influenza Typ A,B (EIA) Assessment & Plan - Assessment and Plan (Free Text) Assessment: 82 YO F admitted for dyspnea possibly secondary to acute CHF exacerbation vs COPD exacerbation vs Pnemonia 1) Severe Sepsis secondary to HCAP - previous echo reviewed : EF : 65- 75 % - Manager Protein: Dr. Jean consulted - Albuterol/ Ipratropium Q4 - Meropenum 500 Q8 - Methylprednisolone 60 mg Q8- - VAncomycin 500 Q12 - Zosyn 4.5mg 2) COPD exacerbation - solumedrol 60 mg IV Q8h - duonebs 3mL Inh Q4h - Azithromycin 500 daily 3) CHF - last echo 05/15/2017 showed EF 60-65%, severe tricuspid regurgitation, severe pulmonary hypertension - on maintenance IVF NS @ 75mL/hr 4) Afib - home medication digoxin and Xarelto not restarted yet - has atrial sensed ventricular paced pacemaker 5) DVT prophylaxis -SCD
--- NOTE | 2017-06-12 16:09 | CP.PCM.CON ---
History of Present Illness - History of Present Illness History of Present Illness: Pulmonary consult for a 82 y/o F, admitted to [facility] on 06/11/17 after found with lactate of 4.4 while at ER and admitted to ICU for Sepsis/ Respiratory Distress. Recently discharged from hospital Tx for CHF. Hx of SOB for several days, increased on DOA associated to chest congestion, non bloody productive cough. Pt received Nebulizer Tx by EMS while at home and O2 increased from 92 to 96%. Worsening factor: RAMIREZ, Hx of COPD, PNA. Multiple chronic medical conditions including; Generalized weakness, CHF, CABG, MV Biophrostesis , A Fib, Cardiac stents, L Pacemaker, TIA , CVA , Dementia. Aggravated Factor: Difficulty of breathing. No signs of fever, chills, n/v/d, abdominal pain, CP, syncope, dizziness, headache, sick contact. CXR: Small b/l effusions. No active disease. CT Chest 05-21-17 : R Effusion , mild scarring atelectasis both lung bases, improved vascular congestion , dilated Pulmonary Trunk , Pulmonary Hypertension. ECHO 05-21-17 : LVEF 60-65% ,severe TR , severe Pulmonary Hypertension , Biophrostesis Mitral Review of Systems - Constitutional Constitutional: Weakness - EENT Eyes: Other (negative) Ears: Other (negative) Nose/Mouth/Throat: Other (negative) - Cardiovascular Cardiovascular: Leg Edema - Respiratory Respiratory: Cough, Dyspnea, Dyspnea on Exertion, Wheezing, Chest Congestion - Gastrointestinal Gastrointestinal: Other (negative) - Genitourinary Genitourinary: Urinary Incontinence - Musculoskeletal Musculoskeletal: Arthralgias, Muscle Weakness - Integumentary Integumentary: Other (Sternotomy healed scar.) - Neurological Neurological: Memory Loss - Psychiatric Psychiatric: Memory Loss - Endocrine Endocrine: Other (negative) - Hematologic/Lymphatic Hematologic: Other (negative) Past Patient History - Infectious Disease Hx of Infectious Diseases: None - Tetanus Immunizations Tetanus Immunization: Unknown - Past Medical History & Family History Past Medical History?: Yes Pertinent Family History: Unknown - Past Social History Smoking Status: Never Smoked Alcohol: None Drugs: Denies Home Situation {Lives}: With Family - CARDIAC Hx Cardiac Disorders: Yes (CAD/CHF/PVD/CABG/AFIB/Pacemaker/Edema/Valvular disease) Hx Atrial Fibrillation: Yes Hx Cardia Arrhythmia: Yes Hx Congestive Heart Failure: Yes Hx Hypercholesterolemia: Yes Hx Hypertension: Yes Hx Pacemaker: Yes Hx Peripheral Edema: Yes Hx Peripheral Vascular Disease: Yes - PULMONARY Hx Respiratory Disorders: Yes (COPD/Asthma/pneumonia) Hx Asthma: Yes Hx Chronic Obstructive Pulmonary Disease (COPD): Yes Hx Pneumonia: Yes - NEUROLOGICAL Hx Neurological Disorder: Yes (CVA/Dementia) HX Cerebrovascular Accident: Yes Hx Dementia: Yes Hx Parkinson's Disease: Yes Hx Transient Ischemic Attacks (TIA): Yes - HEENT Hx HEENT Problems: No - RENAL Hx Chronic Kidney Disease: No - ENDOCRINE/METABOLIC Hx Endocrine Disorders: Yes (DM) Hx Diabetes Mellitus Type 1: Yes - HEMATOLOGICAL/ONCOLOGICAL Hx Blood Disorders: Yes (Anemia) Hx Anemia: Yes - INTEGUMENTARY Hx Dermatological Problems: No - MUSCULOSKELETAL/RHEUMATOLOGICAL Hx Arthritis: Yes Hx Falls: Yes - GASTROINTESTINAL Hx Gastrointestinal Disorders: No - GENITOURINARY/GYNECOLOGICAL Hx Genitourinary Disorders: No - PSYCHIATRIC Hx Substance Use: No - SURGICAL HISTORY Hx Appendectomy: Yes Hx Carotid Endarterectomy: Yes Hx Cholecystectomy: Yes - ANESTHESIA Hx Anesthesia: Yes Hx Anesthesia Reactions: No Hx Malignant Hyperthermia: No Meds Allergies/Adverse Reactions: Allergies Allergy/AdvReac Type Severity Reaction Status Date / Time No Known Allergies Allergy Verified 02/15/17 00:37 - Medications Medications: Current Medications Albuterol/Ipratropium (Duoneb 3 Mg/0.5 Mg (3 Ml) Ud) 3 ml INH RQ4 [facility] Last Admin: 06/12/17 15:22 Dose: 3 ml Azithromycin 500 mg/ Sodium (Chloride) 250 mls @ 250 mls/hr IVPB DAILY@2200 [facility] PRN Reason: Protocol Sodium Chloride (Sodium Chloride 0.9%) 1,000 mls @ 75 mls/hr IV .[id number] [facility] Stop: 06/12/17 18:33 Last Admin: 06/12/17 03:15 Dose: 75 mls/hr Vancomycin HCl 500 mg/ Sodium (Chloride) 100 mls @ 100 mls/hr IVPB Q12H [facility] PRN Reason: Protocol Last Admin: 06/12/17 05:44 Dose: 100 mls/hr Methylprednisolone 60 mg/ (Sodium Chloride) 50 mls @ 100 mls/hr IVPB Q8 [facility] Last Admin: 06/12/17 08:33 Dose: 100 mls/hr Meropenem 500 mg/ Sodium (Chloride) 100 mls @ 100 mls/hr IVPB Q8@0400,1200, 2000 [facility] PRN Reason: Protocol Last Admin: 06/12/17 14:11 Dose: 100 mls/hr Piperacillin Sod/Tazobactam (Sod 3.375 gm/ Sodium Chloride) 100 mls @ 100 mls/ hr IVPB Q8@0300,1100,1900 [facility] PRN Reason: Protocol Last Admin: 06/12/17 12:09 Dose: 100 mls/hr Insulin Human Lispro (Humalog) 0 units SC ACHS [facility] PRN Reason: Protocol Last Admin: 06/12/17 12:07 Dose: 2 u Rivaroxaban (Xarelto) 15 mg PO DAILY [facility] PRN Reason: Protocol Last Admin: 06/12/17 14:11 Dose: 15 mg Physical Exam - Constitutional Appears: Chronically Ill - Head Exam Head Exam: NORMAL INSPECTION - Eye Exam Eye Exam: PERRL - ENT Exam ENT Exam: Normal Exam - Neck Exam Neck exam: Positive for: Normal Inspection - Respiratory Exam Respiratory Exam: Rhonchi (b/l), Wheezes - Cardiovascular Exam Cardiovascular Exam: REGULAR RHYTHM, Systolic Murmur (3/6 LSB- [place] radiated to axilla.) Additional comments: Sternotomy scar. L pacemaker. - GI/Abdominal Exam GI & Abdominal Exam: Normal Bowel Sounds, Soft - Extremities Exam Additional comments: Edema LE - Back Exam Back exam: NORMAL INSPECTION - Neurological Exam Neurological exam: Alert Additional comments: Oriented x 2, generalized weakness - Psychiatric Exam Psychiatric exam: Normal Mood - Skin Skin Exam: Warm Results - Vital Signs Recent Vital Signs: reviewed J.P. Last Vital Signs Temp 98.1 F 06/12/17 12:00 Pulse 69 06/12/17 14:00 Resp 25 H 06/12/17 14:00 BP 115/60 06/12/17 14:00 Pulse Ox 100 06/12/17 14:00 - Labs Result Diagrams: 06/17/17 06:00 06/17/17 06:00 Labs: Laboratory Results - last 24 hr 06/11/17 06/11/17 06/11/17 16:23 16:54 16:54 WBC 12.8 H RBC 3.69 L Hgb 10.6 L Hct 33.9 L MCV 92.1 MCH 28.7 MCHC 31.2 L RDW 17.1 H Plt Count 320 MPV 10.5 Neut % (Auto) 83.0 H Lymph % (Auto) 10.5 L [place] % (Auto) 6.2 Eos % (Auto) 0.0 Baso % (Auto) 0.3 Neut # 10.7 H Lymph # 1.4 [place] # 0.8 Eos # 0.0 Baso # 0.0 Neutrophils % (Manual) Lymphocytes % (Manual) Monocytes % (Manual) Platelet Estimate Large Platelets Giant Platelets Polychromasia Hypochromasia (manual) Anisocytosis (manual) Tear Drop Cells Ovalocytes Schistocytes PT INR APTT pCO2 35 pO2 67 L HCO3 28.1 H ABG pH 7.50 H ABG Total CO2 28.4 H ABG O2 Saturation 98.0 ABG O2 Content ABG Base Excess 4.2 H ABG Hemoglobin ABG Carboxyhemoglobin POC ABG HHb (Measured) ABG Methemoglobin ABG O2 Capacity Kermit Test Yes ABG Potassium 3.7 VBG pH VBG pCO2 VBG HCO3 VBG Total CO2 VBG O2 Sat (Calc) VBG Base Excess VBG Potassium A-a O2 Difference 39.0 Hgb O2 Saturation Sodium 138.0 142 Chloride 101.0 99 Glucose 292 H Lactate 4.2 H* Vent Mode FiO2 21.0 Blood Gas Comments Copy given to rn Crit Value Called To Rn lennox chilel Crit Value Called By 292 Crit Value Read Back Y Blood Gas Notified Time 1634 Potassium 3.6 Carbon Dioxide 30 Anion Gap 17 BUN 57 H Creatinine 1.0 Est GFR ( Amer) > 60 Est GFR (Non-Af Amer) 53 POC Glucose (mg/dL) Random Glucose 251 H Calcium 9.8 Phosphorus 3.8 Magnesium 1.8 Total Bilirubin 0.5 AST 71 H D ALT 89 H D Alkaline Phosphatase 106 Troponin I 0.0380 NT-Pro-B Natriuret Pep 8730 H Total Protein 6.8 Albumin 3.9 Globulin 2.9 Albumin/Globulin Ratio 1.3 Arterial Blood Potassium 3.7 Venous Blood Potassium Urine Color Urine Clarity Urine pH Ur Specific [place] Urine Protein Urine Glucose (UA) Urine Ketones Urine Blood Urine Nitrate Urine Bilirubin Urine Urobilinogen Ur Leukocyte Esterase Urine RBC (Auto) Urine Microscopic WBC Ur Squamous Epith Cells Urine Bacteria Hyaline Casts Digoxin Influenza Typ A,B (EIA) 06/11/17 06/11/17 06/11/17 16:54 16:54 16:54 WBC RBC Hgb Hct MCV MCH MCHC RDW Plt Count MPV Neut % (Auto) Lymph % (Auto) [place] % (Auto) Eos % (Auto) Baso % (Auto) Neut # Lymph # [place] # Eos # Baso # Neutrophils % (Manual) Lymphocytes % (Manual) Monocytes % (Manual) Platelet Estimate Large Platelets Giant Platelets Polychromasia Hypochromasia (manual) Anisocytosis (manual) Tear Drop Cells Ovalocytes Schistocytes PT 24.4 H INR 2.1 H APTT 33.8 pCO2 pO2 HCO3 ABG pH ABG Total CO2 ABG O2 Saturation ABG O2 Content ABG Base Excess ABG Hemoglobin ABG Carboxyhemoglobin POC ABG HHb (Measured) ABG Methemoglobin ABG O2 Capacity Kermit Test ABG Potassium VBG pH VBG pCO2 VBG HCO3 VBG Total CO2 VBG O2 Sat (Calc) VBG Base Excess VBG Potassium A-a O2 Difference Hgb O2 Saturation Sodium Chloride Glucose Lactate Vent Mode FiO2 Blood Gas Comments Crit Value Called To Crit Value Called By Crit Value Read Back Blood Gas Notified Time Potassium Carbon Dioxide Anion Gap BUN Creatinine Est GFR ( Amer) Est GFR (Non-Af Amer) POC Glucose (mg/dL) Random Glucose Calcium Phosphorus Magnesium Total Bilirubin AST ALT Alkaline Phosphatase Troponin I NT-Pro-B Natriuret Pep Total Protein Albumin Globulin Albumin/Globulin Ratio Arterial Blood Potassium Venous Blood Potassium Urine Color Urine Clarity Urine pH Ur Specific [place] Urine Protein Urine Glucose (UA) Urine Ketones Urine Blood Urine Nitrate Urine Bilirubin Urine Urobilinogen Ur Leukocyte Esterase Urine RBC (Auto) Urine Microscopic WBC Ur Squamous Epith Cells Urine Bacteria Hyaline Casts Digoxin 1.1 Influenza Typ A,B (EIA) Negative for flu a/b 06/11/17 06/11/17 06/12/17 17:10 19:46 04:35 WBC 7.7 RBC 3.11 L Hgb 9.1 L Hct 28.4 L MCV 91.2 MCH 29.2 MCHC 32.1 L RDW 17.2 H Plt Count 269 MPV 10.5 Neut % (Auto) 92.4 H Lymph % (Auto) 5.1 L [place] % (Auto) 2.3 Eos % (Auto) 0.0 Baso % (Auto) 0.2 Neut # 7.1 H Lymph # 0.4 L [place] # 0.2 Eos # 0.0 Baso # 0.0 Neutrophils % (Manual) 88 H Lymphocytes % (Manual) 10 L Monocytes % (Manual) 2 Platelet Estimate Normal Large Platelets Present Giant Platelets Present Polychromasia Slight Hypochromasia (manual) Slight Anisocytosis (manual) Slight Tear Drop Cells Slight Ovalocytes Slight Schistocytes Slight PT INR APTT pCO2 pO2 56 H HCO3 ABG pH ABG Total CO2 ABG O2 Saturation ABG O2 Content ABG Base Excess ABG Hemoglobin ABG Carboxyhemoglobin POC ABG HHb (Measured) ABG Methemoglobin ABG O2 Capacity Kermit Test ABG Potassium VBG pH 7.44 H VBG pCO2 43 VBG HCO3 28.2 VBG Total CO2 30.5 H VBG O2 Sat (Calc) 93.4 H VBG Base Excess 4.4 H VBG Potassium 3.0 L A-a O2 Difference Hgb O2 Saturation Sodium 141.0 Chloride 102.0 Glucose 248 H Lactate 4.4 H* Vent Mode FiO2 21.0 Blood Gas Comments Crit Value Called To Cinthya fernandez Crit Value Called By 292 Crit Value Read Back Y Blood Gas Notified Time 1957 Potassium Carbon Dioxide Anion Gap BUN Creatinine Est GFR ( Amer) Est GFR (Non-Af Amer) POC Glucose (mg/dL) Random Glucose Calcium Phosphorus Magnesium Total Bilirubin AST ALT Alkaline Phosphatase Troponin I NT-Pro-B Natriuret Pep Total Protein Albumin Globulin Albumin/Globulin Ratio Arterial Blood Potassium Venous Blood Potassium 3.0 L Urine Color Yellow Urine Clarity Slighty-cloudy Urine pH 7.0 Ur Specific [place] 1.011 Urine Protein Negative Urine Glucose (UA) Neg Urine Ketones Negative Urine Blood Negative Urine Nitrate Negative Urine Bilirubin Negative Urine Urobilinogen 0.2-1.0 Ur Leukocyte Esterase Neg Urine RBC (Auto) < 1 Urine Microscopic WBC 1 Ur Squamous Epith Cells 1 Urine Bacteria Rare Hyaline Casts 3-5 H Digoxin Influenza Typ A,B (EIA) 06/12/17 06/12/17 06/12/17 04:35 05:14 05:19 WBC RBC Hgb Hct MCV MCH MCHC RDW Plt Count MPV Neut % (Auto) Lymph % (Auto) [place] % (Auto) Eos % (Auto) Baso % (Auto) Neut # Lymph # [place] # Eos # Baso # Neutrophils % (Manual) Lymphocytes % (Manual) Monocytes % (Manual) Platelet Estimate Large Platelets Giant Platelets Polychromasia Hypochromasia (manual) Anisocytosis (manual) Tear Drop Cells Ovalocytes Schistocytes PT INR APTT pCO2 40 pO2 108 H HCO3 30.7 H ABG pH 7.50 H ABG Total CO2 32.4 H ABG O2 Saturation 100.2 H ABG O2 Content 12.6 L ABG Base Excess 7.4 H ABG Hemoglobin 9.1 L ABG Carboxyhemoglobin 1.7 H POC ABG HHb (Measured) -0.2 L ABG Methemoglobin 1.3 ABG O2 Capacity 12.6 L Kermit Test Yes ABG Potassium VBG pH VBG pCO2 VBG HCO3 VBG Total CO2 VBG O2 Sat (Calc) VBG Base Excess VBG Potassium A-a O2 Difference 42.0 Hgb O2 Saturation 97.2 Sodium 142 Chloride 103 Glucose Lactate Vent Mode 2lnc FiO2 28.0 Blood Gas Comments Crit Value Called To Crit Value Called By Crit Value Read Back Blood Gas Notified Time Potassium 3.3 L Carbon Dioxide 27 Anion Gap 15 BUN 47 H Creatinine 0.9 Est GFR ( Amer) > 60 Est GFR (Non-Af Amer) 60 POC Glucose (mg/dL) 204 H Random Glucose 188 H Calcium 9.0 Phosphorus Magnesium Total Bilirubin 0.4 AST 47 H D ALT 64 H D Alkaline Phosphatase 75 Troponin I NT-Pro-B Natriuret Pep Total Protein 5.6 L Albumin 3.1 L D Globulin 2.5 Albumin/Globulin Ratio 1.2 Arterial Blood Potassium Venous Blood Potassium Urine Color Urine Clarity Urine pH Ur Specific [place] Urine Protein Urine Glucose (UA) Urine Ketones Urine Blood Urine Nitrate Urine Bilirubin Urine Urobilinogen Ur Leukocyte Esterase Urine RBC (Auto) Urine Microscopic WBC Ur Squamous Epith Cells Urine Bacteria Hyaline Casts Digoxin Influenza Typ A,B (EIA) 06/12/17 11:13 WBC RBC Hgb Hct MCV MCH MCHC RDW Plt Count MPV Neut % (Auto) Lymph % (Auto) [place] % (Auto) Eos % (Auto) Baso % (Auto) Neut # Lymph # [place] # Eos # Baso # Neutrophils % (Manual) Lymphocytes % (Manual) Monocytes % (Manual) Platelet Estimate Large Platelets Giant Platelets Polychromasia Hypochromasia (manual) Anisocytosis (manual) Tear Drop Cells Ovalocytes Schistocytes PT INR APTT pCO2 pO2 HCO3 ABG pH ABG Total CO2 ABG O2 Saturation ABG O2 Content ABG Base Excess ABG Hemoglobin ABG Carboxyhemoglobin POC ABG HHb (Measured) ABG Methemoglobin ABG O2 Capacity Kermit Test ABG Potassium VBG pH VBG pCO2 VBG HCO3 VBG Total CO2 VBG O2 Sat (Calc) VBG Base Excess VBG Potassium A-a O2 Difference Hgb O2 Saturation Sodium Chloride Glucose Lactate Vent Mode FiO2 Blood Gas Comments Crit Value Called To Crit Value Called By Crit Value Read Back Blood Gas Notified Time Potassium Carbon Dioxide Anion Gap BUN Creatinine Est GFR ( Amer) Est GFR (Non-Af Amer) POC Glucose (mg/dL) 248 H Random Glucose Calcium Phosphorus Magnesium Total Bilirubin AST ALT Alkaline Phosphatase Troponin I NT-Pro-B Natriuret Pep Total Protein Albumin Globulin Albumin/Globulin Ratio Arterial Blood Potassium Venous Blood Potassium Urine Color Urine Clarity Urine pH Ur Specific [place] Urine Protein Urine Glucose (UA) Urine Ketones Urine Blood Urine Nitrate Urine Bilirubin Urine Urobilinogen Ur Leukocyte Esterase Urine RBC (Auto) Urine Microscopic WBC Ur Squamous Epith Cells Urine Bacteria Hyaline Casts Digoxin Influenza Typ A,B (EIA) reviewed J.P. - EKG Data EKG comments: reviewed J.P. - Imaging and Cardiology Chest x-ray Status: Report reviewed by me (J.P.) Assessment & Plan (1) Respiratory distress Status: Acute Priority: High (2) Severe sepsis Status: Acute Priority: High (3) COPD exacerbation Status: Acute Priority: High - Assessment and Plan (Free Text) Plan: F/U Blood C-S, MRSA screening, continue current abx, Vanco, Merren, Zithromax, Duoneb and rest of Tx. , CT Chest ICU Time: 70 min. - Date & Time Date: 06/12/17 Time: 11:30
--- NOTE | 2017-06-12 16:20 | CP.PCM.CON ---
History of Present Illness - History of Present Illness History of Present Illness: I was asked to see patient by Dr Lawrence. Patient is a 82 year old female with PMH HTN, CAD, vavular heart diease, AV fabiana ablatio with pacemaker implantation who presents with productive cough. The patient states symtpoms got worse and she had a redish color to her cough. The patient states she became dyspneic. The patient denies chest pain or syncope. Review of Systems - Constitutional Constitutional: absent: As Per HPI, Anorexia, Chills, Daytime Sleepiness, Excessive Sweating, Fatigue, Fever, Frequent Falls, Headache, Increased Appetite , Lethargy, Malaise, Night Sweats, Snoring, Sleep Apnea, Weight Gain, Weight Loss, Weakness, Other - EENT Eyes: absent: As Per HPI, Blind Spots, Blurred Vision, Change in Vision, Decreased Night Vision, Diplopia, Discharge, Dry Eye, Exophthalmos, Floaters, Irritation, Itchy Eyes, Loss of Peripheral Vision, Pain, Photophobia, Requires Corrective Lenses, Sees Flashes, Spots in Vision, Tunnel Vision, Other Visual Disturbances, Loss of Vision, Other Ears: absent: As Per HPI, Decreased Hearing, Ear Discharge, Ear Pain, Tinnitus, Abnormal Hearing, Disequilibrium, Dizziness, Other Nose/Mouth/Throat: absent: As Per HPI, Epistaxis, Nasal Congestion, Nasal Discharge, Nasal Obstruction, Nasal Trauma, Nose Pain, Post Nasal Drip, Sinus Pain, Sinus Pressure, Bleeding Gums, Change in Voice, Dental Pain, Dry Mouth, Dysphagia, Halitosis, Hoarsness, Lip Swelling, Mouth Lesions, Mouth Pain, Odynophagia, Sore Throat, Throat Swelling, Tongue Swelling, Facial Pain, Neck Pain, Neck Mass, Other - Cardiovascular Cardiovascular: absent: As Per HPI, Acrocyanosis, Chest Pain, Chest Pain at Rest , Chest Pain with Activity, Claudication, Diaphoresis, Dyspnea, Dyspnea on Exertion, Edema, Irregular Heart Rhythm, Pain Radiating to Arm/Neck/Jaw, Leg Edema, Leg Ulcers, Lightheadedness, Orthopnea, Palpitations, Paroxysmal Nocturnal Dyspnea, Pedal Edema, Radiating Pain, Rapid Heart Rate, Slow Heart Rate, Syncope, Other - Respiratory Respiratory: Cough, Dyspnea on Exertion, Chest Congestion, Change in Mucous Color - Gastrointestinal Gastrointestinal: absent: As Per HPI, Abdominal Pain, Belching, Bloating, Change in Bowel Habits, Change in Stool Character, Coffee Ground Emesis, Constipation, Cramping, Diarrhea, Dyspepsia, Dysphagia, Early Satiety, Excessive Flatus, Fecal Incontinence, Heartburn, Hematemesis, Hematochezia, Loose Stools, Melena, Nausea, Odynophagia, Temesmus, Vomiting, Other - Genitourinary Genitourinary: absent: As Per HPI, Change in Urinary Stream, Difficulty Urinating, Dysuria, Flank Pain, Hematuria, Pyuria, Nocturia, Urinary Incontinence, Urinary Frequency, Urinary Hesitance, Urinary Urgency, Voiding Freq/Small Amts, Freq UTI, Hx Renal/Bladder Calculi, Hx /Renal Surgery, Bladder Distension, Other - Musculoskeletal Musculoskeletal: absent: As Per HPI, Abnormal Gait, Arthralgias, Atrophy, Back Pain, Deformity, Joint Swelling, Limited Range of Motion, Loss of Height, Muscle Cramps, Muscle Weakness, Myalgias, Neck Pain, Numbness, Radiating Pain into Limb, Stiffness, Tingling, Other - Integumentary Integumentary: absent: As Per HPI, Acne, Alopecia, Bleeding Lesions, Change in Hair, Change in Nails, Change in Pigmentation, Changing Lesions, Dry Skin, Erythema, Furuncle, Hirsutism, Lesions, New Lesions, Non-Healing Lesions, Photosensitivity, Pruritus, Rash, Skin Pain, Skin Ulcer, Sores, Striae, Swelling , Unusual Bruising, Wounds, Jaundice, Other - Neurological Neurological: absent: As Per HPI, Abnormal Gait, Abnormal Hearing, Abnormal Movements, Abnormal Speech, Behavioral Changes, Burning Sensations, Confusion, Convulsions, Disequilibrium, Dizziness, Numbness, Focal Weakness, Frequent Falls , Headaches, Lack of Coordination, Loss of Vision, Memory Loss, Paresthesias, Radicular Pain, Restless Legs, Sensory Deficit, Syncope, Tingling, Tremor, Vertigo, Weakness, Other Visual Disturbances, Other - Psychiatric Psychiatric: absent: As Per HPI, Abnormal Sleep Pattern, Anhedonia, Anxiety, Auditory Hallucinations, Behavioral Changes, Change in Appetite, Change in Libido, Confusion, Depression, Difficulty Concentrating, Hallucinations, Homicidal Ideation, Hopelessness, Irritability, Memory Loss, Mood Swings, Panic Attacks, Paranoia, Suicidal Ideation, Visual Hallucinations, Tactile Hallucinations, Other - Endocrine Endocrine: absent: As Per HPI, Change in Body Appearance, Change in Libido, Cold Intolorance, Deepening of Voice, Excessive Sweating, Fatigue, Flushing, Heat Intolorance, Increase in Ring/Shoe/Hat Size, Palpitations, Polydipsia, Polyphagia, Polyuria, Other - Hematologic/Lymphatic Hematologic: absent: As Per HPI, Easy Bleeding, Easy Bruising, Lymphadenopathy, Other Past Patient History - Infectious Disease Hx of Infectious Diseases: None - Tetanus Immunizations Tetanus Immunization: Unknown - Past Medical History & Family History Past Medical History?: Yes - Past Social History Smoking Status: Never Smoked - CARDIAC Hx Cardiac Disorders: Yes (CAD/CHF/PVD/CABG/AFIB/Pacemaker/Edema/Valvular disease) Hx Atrial Fibrillation: Yes Hx Cardia Arrhythmia: Yes Hx Congestive Heart Failure: Yes Hx Hypercholesterolemia: Yes Hx Hypertension: Yes Hx Pacemaker: Yes Hx Peripheral Edema: Yes Hx Peripheral Vascular Disease: Yes - PULMONARY Hx Respiratory Disorders: Yes (COPD/Asthma/pneumonia) Hx Asthma: Yes Hx Chronic Obstructive Pulmonary Disease (COPD): Yes Hx Pneumonia: Yes - NEUROLOGICAL Hx Neurological Disorder: Yes (CVA/Dementia) HX Cerebrovascular Accident: Yes Hx Dementia: Yes Hx Parkinson's Disease: Yes Hx Transient Ischemic Attacks (TIA): Yes - HEENT Hx HEENT Problems: No - RENAL Hx Chronic Kidney Disease: No - ENDOCRINE/METABOLIC Hx Endocrine Disorders: Yes (DM) Hx Diabetes Mellitus Type 1: Yes - HEMATOLOGICAL/ONCOLOGICAL Hx Blood Disorders: Yes (Anemia) Hx Anemia: Yes - INTEGUMENTARY Hx Dermatological Problems: No - MUSCULOSKELETAL/RHEUMATOLOGICAL Hx Arthritis: Yes Hx Falls: Yes - GASTROINTESTINAL Hx Gastrointestinal Disorders: No - GENITOURINARY/GYNECOLOGICAL Hx Genitourinary Disorders: No - PSYCHIATRIC Hx Substance Use: No - SURGICAL HISTORY Hx Appendectomy: Yes Hx Carotid Endarterectomy: Yes Hx Cholecystectomy: Yes - ANESTHESIA Hx Anesthesia: Yes Hx Anesthesia Reactions: No Hx Malignant Hyperthermia: No Meds Allergies/Adverse Reactions: Allergies Allergy/AdvReac Type Severity Reaction Status Date / Time No Known Allergies Allergy Verified 02/15/17 00:37 - Medications Medications: Current Medications Albuterol/Ipratropium (Duoneb 3 Mg/0.5 Mg (3 Ml) Ud) 3 ml INH RQ4 [facility] Last Admin: 06/12/17 15:22 Dose: 3 ml Azithromycin 500 mg/ Sodium (Chloride) 250 mls @ 250 mls/hr IVPB DAILY@2200 [facility] PRN Reason: Protocol Sodium Chloride (Sodium Chloride 0.9%) 1,000 mls @ 75 mls/hr IV .[id number] [facility] Stop: 06/12/17 18:33 Last Admin: 06/12/17 03:15 Dose: 75 mls/hr Vancomycin HCl 500 mg/ Sodium (Chloride) 100 mls @ 100 mls/hr IVPB Q12H [facility] PRN Reason: Protocol Last Admin: 06/12/17 05:44 Dose: 100 mls/hr Methylprednisolone 60 mg/ (Sodium Chloride) 50 mls @ 100 mls/hr IVPB Q8 [facility] Last Admin: 06/12/17 08:33 Dose: 100 mls/hr Meropenem 500 mg/ Sodium (Chloride) 100 mls @ 100 mls/hr IVPB Q8@0400,1200, 2000 [facility] PRN Reason: Protocol Last Admin: 06/12/17 14:11 Dose: 100 mls/hr Piperacillin Sod/Tazobactam (Sod 3.375 gm/ Sodium Chloride) 100 mls @ 100 mls/ hr IVPB Q8@0300,1100,1900 [facility] PRN Reason: Protocol Last Admin: 06/12/17 12:09 Dose: 100 mls/hr Insulin Human Lispro (Humalog) 0 units SC ACHS [facility] PRN Reason: Protocol Last Admin: 06/12/17 12:07 Dose: 2 u Rivaroxaban (Xarelto) 15 mg PO DAILY [facility] PRN Reason: Protocol Last Admin: 06/12/17 14:11 Dose: 15 mg Physical Exam - Constitutional Appears: Non-toxic - Head Exam Head Exam: NORMAL INSPECTION - Eye Exam Pupil Exam: NORMAL ACCOMODATION - ENT Exam ENT Exam: Mucous Membranes Moist - Neck Exam Neck exam: Positive for: Full Rom - Respiratory Exam Respiratory Exam: NORMAL BREATHING PATTERN - Cardiovascular Exam Cardiovascular Exam: REGULAR RHYTHM - GI/Abdominal Exam GI & Abdominal Exam: Normal Bowel Sounds - Rectal Exam Rectal Exam: Deferred Results - Vital Signs Recent Vital Signs: Last Vital Signs Temp 98.1 F 06/12/17 12:00 Pulse 69 06/12/17 14:00 Resp 25 H 06/12/17 14:00 BP 115/60 06/12/17 14:00 Pulse Ox 100 06/12/17 14:00 - Labs Result Diagrams: 06/12/17 04:35 06/12/17 04:35 Labs: Laboratory Results - last 24 hr 06/11/17 06/11/17 06/11/17 16:23 16:54 16:54 WBC 12.8 H RBC 3.69 L Hgb 10.6 L Hct 33.9 L MCV 92.1 MCH 28.7 MCHC 31.2 L RDW 17.1 H Plt Count 320 MPV 10.5 Neut % (Auto) 83.0 H Lymph % (Auto) 10.5 L [place] % (Auto) 6.2 Eos % (Auto) 0.0 Baso % (Auto) 0.3 Neut # 10.7 H Lymph # 1.4 [place] # 0.8 Eos # 0.0 Baso # 0.0 Neutrophils % (Manual) Lymphocytes % (Manual) Monocytes % (Manual) Platelet Estimate Large Platelets Giant Platelets Polychromasia Hypochromasia (manual) Anisocytosis (manual) Tear Drop Cells Ovalocytes Schistocytes PT INR APTT pCO2 35 pO2 67 L HCO3 28.1 H ABG pH 7.50 H ABG Total CO2 28.4 H ABG O2 Saturation 98.0 ABG O2 Content ABG Base Excess 4.2 H ABG Hemoglobin ABG Carboxyhemoglobin POC ABG HHb (Measured) ABG Methemoglobin ABG O2 Capacity K[place] Test Yes ABG Potassium 3.7 VBG pH VBG pCO2 VBG HCO3 VBG Total CO2 VBG O2 Sat (Calc) VBG Base Excess VBG Potassium A-a O2 Difference 39.0 Hgb O2 Saturation Sodium 138.0 142 Chloride 101.0 99 Glucose 292 H Lactate 4.2 H* Vent Mode FiO2 21.0 Blood Gas Comments Copy given to rn Crit Value Called To Rn lennox chilel Crit Value Called By 292 Crit Value Read Back Y Blood Gas Notified Time 1634 Potassium 3.6 Carbon Dioxide 30 Anion Gap 17 BUN 57 H Creatinine 1.0 Est GFR ( Amer) > 60 Est GFR (Non-Af Amer) 53 POC Glucose (mg/dL) Random Glucose 251 H Calcium 9.8 Phosphorus 3.8 Magnesium 1.8 Total Bilirubin 0.5 AST 71 H D ALT 89 H D Alkaline Phosphatase 106 Troponin I 0.0380 NT-Pro-B Natriuret Pep 8730 H Total Protein 6.8 Albumin 3.9 Globulin 2.9 Albumin/Globulin Ratio 1.3 Arterial Blood Potassium 3.7 Venous Blood Potassium Urine Color Urine Clarity Urine pH Ur Specific [place] Urine Protein Urine Glucose (UA) Urine Ketones Urine Blood Urine Nitrate Urine Bilirubin Urine Urobilinogen Ur Leukocyte Esterase Urine RBC (Auto) Urine Microscopic WBC Ur Squamous Epith Cells Urine Bacteria Hyaline Casts Digoxin Influenza Typ A,B (EIA) 06/11/17 06/11/17 06/11/17 16:54 16:54 16:54 WBC RBC Hgb Hct MCV MCH MCHC RDW Plt Count MPV Neut % (Auto) Lymph % (Auto) [place] % (Auto) Eos % (Auto) Baso % (Auto) Neut # Lymph # [place] # Eos # Baso # Neutrophils % (Manual) Lymphocytes % (Manual) Monocytes % (Manual) Platelet Estimate Large Platelets Giant Platelets Polychromasia Hypochromasia (manual) Anisocytosis (manual) Tear Drop Cells Ovalocytes Schistocytes PT 24.4 H INR 2.1 H APTT 33.8 pCO2 pO2 HCO3 ABG pH ABG Total CO2 ABG O2 Saturation ABG O2 Content ABG Base Excess ABG Hemoglobin ABG Carboxyhemoglobin POC ABG HHb (Measured) ABG Methemoglobin ABG O2 Capacity [place] Test ABG Potassium VBG pH VBG pCO2 VBG HCO3 VBG Total CO2 VBG O2 Sat (Calc) VBG Base Excess VBG Potassium A-a O2 Difference Hgb O2 Saturation Sodium Chloride Glucose Lactate Vent Mode FiO2 Blood Gas Comments Crit Value Called To Crit Value Called By Crit Value Read Back Blood Gas Notified Time Potassium Carbon Dioxide Anion Gap BUN Creatinine Est GFR ( Amer) Est GFR (Non-Af Amer) POC Glucose (mg/dL) Random Glucose Calcium Phosphorus Magnesium Total Bilirubin AST ALT Alkaline Phosphatase Troponin I NT-Pro-B Natriuret Pep Total Protein Albumin Globulin Albumin/Globulin Ratio Arterial Blood Potassium Venous Blood Potassium Urine Color Urine Clarity Urine pH Ur Specific [place] Urine Protein Urine Glucose (UA) Urine Ketones Urine Blood Urine Nitrate Urine Bilirubin Urine Urobilinogen Ur Leukocyte Esterase Urine RBC (Auto) Urine Microscopic WBC Ur Squamous Epith Cells Urine Bacteria Hyaline Casts Digoxin 1.1 Influenza Typ A,B (EIA) Negative for flu a/b 06/11/17 06/11/17 06/12/17 17:10 19:46 04:35 WBC 7.7 RBC 3.11 L Hgb 9.1 L Hct 28.4 L MCV 91.2 MCH 29.2 MCHC 32.1 L RDW 17.2 H Plt Count 269 MPV 10.5 Neut % (Auto) 92.4 H Lymph % (Auto) 5.1 L [place] % (Auto) 2.3 Eos % (Auto) 0.0 Baso % (Auto) 0.2 Neut # 7.1 H Lymph # 0.4 L [place] # 0.2 Eos # 0.0 Baso # 0.0 Neutrophils % (Manual) 88 H Lymphocytes % (Manual) 10 L Monocytes % (Manual) 2 Platelet Estimate Normal Large Platelets Present Giant Platelets Present Polychromasia Slight Hypochromasia (manual) Slight Anisocytosis (manual) Slight Tear Drop Cells Slight Ovalocytes Slight Schistocytes Slight PT INR APTT pCO2 pO2 56 H HCO3 ABG pH ABG Total CO2 ABG O2 Saturation ABG O2 Content ABG Base Excess ABG Hemoglobin ABG Carboxyhemoglobin POC ABG HHb (Measured) ABG Methemoglobin ABG O2 Capacity [place] Test ABG Potassium VBG pH 7.44 H VBG pCO2 43 VBG HCO3 28.2 VBG Total CO2 30.5 H VBG O2 Sat (Calc) 93.4 H VBG Base Excess 4.4 H VBG Potassium 3.0 L A-a O2 Difference Hgb O2 Saturation Sodium 141.0 Chloride 102.0 Glucose 248 H Lactate 4.4 H* Vent Mode FiO2 21.0 Blood Gas Comments Crit Value Called To Cinthya fernandez Crit Value Called By 292 Crit Value Read Back Y Blood Gas Notified Time 1957 Potassium Carbon Dioxide Anion Gap BUN Creatinine Est GFR ( Amer) Est GFR (Non-Af Amer) POC Glucose (mg/dL) Random Glucose Calcium Phosphorus Magnesium Total Bilirubin AST ALT Alkaline Phosphatase Troponin I NT-Pro-B Natriuret Pep Total Protein Albumin Globulin Albumin/Globulin Ratio Arterial Blood Potassium Venous Blood Potassium 3.0 L Urine Color Yellow Urine Clarity Slighty-cloudy Urine pH 7.0 Ur Specific [place] 1.011 Urine Protein Negative Urine Glucose (UA) Neg Urine Ketones Negative Urine Blood Negative Urine Nitrate Negative Urine Bilirubin Negative Urine Urobilinogen 0.2-1.0 Ur Leukocyte Esterase Neg Urine RBC (Auto) < 1 Urine Microscopic WBC 1 Ur Squamous Epith Cells 1 Urine Bacteria Rare Hyaline Casts 3-5 H Digoxin Influenza Typ A,B (EIA) 1006/12/17 06/12/17 04:35 05:14 05:19 WBC RBC Hgb Hct MCV MCH MCHC RDW Plt Count MPV Neut % (Auto) Lymph % (Auto) [place] % (Auto) Eos % (Auto) Baso % (Auto) Neut # Lymph # [place] # Eos # Baso # Neutrophils % (Manual) Lymphocytes % (Manual) Monocytes % (Manual) Platelet Estimate Large Platelets Giant Platelets Polychromasia Hypochromasia (manual) Anisocytosis (manual) Tear Drop Cells Ovalocytes Schistocytes PT INR APTT pCO2 40 pO2 108 H HCO3 30.7 H ABG pH 7.50 H ABG Total CO2 32.4 H ABG O2 Saturation 100.2 H ABG O2 Content 12.6 L ABG Base Excess 7.4 H ABG Hemoglobin 9.1 L ABG Carboxyhemoglobin 1.7 H POC ABG HHb (Measured) -0.2 L ABG Methemoglobin 1.3 ABG O2 Capacity 12.6 L [place] Test Yes ABG Potassium VBG pH VBG pCO2 VBG HCO3 VBG Total CO2 VBG O2 Sat (Calc) VBG Base Excess VBG Potassium A-a O2 Difference 42.0 Hgb O2 Saturation 97.2 Sodium 142 Chloride 103 Glucose Lactate Vent Mode 2lnc FiO2 28.0 Blood Gas Comments Crit Value Called To Crit Value Called By Crit Value Read Back Blood Gas Notified Time Potassium 3.3 L Carbon Dioxide 27 Anion Gap 15 BUN 47 H Creatinine 0.9 Est GFR ( Amer) > 60 Est GFR (Non-Af Amer) 60 POC Glucose (mg/dL) 204 H Random Glucose 188 H Calcium 9.0 Phosphorus Magnesium Total Bilirubin 0.4 AST 47 H D ALT 64 H D Alkaline Phosphatase 75 Troponin I NT-Pro-B Natriuret Pep Total Protein 5.6 L Albumin 3.1 L D Globulin 2.5 Albumin/Globulin Ratio 1.2 Arterial Blood Potassium Venous Blood Potassium Urine Color Urine Clarity Urine pH Ur Specific [place] Urine Protein Urine Glucose (UA) Urine Ketones Urine Blood Urine Nitrate Urine Bilirubin Urine Urobilinogen Ur Leukocyte Esterase Urine RBC (Auto) Urine Microscopic WBC Ur Squamous Epith Cells Urine Bacteria Hyaline Casts Digoxin Influenza Typ A,B (EIA) 06/12/17 06/12/17 11:13 16:03 WBC RBC Hgb Hct MCV MCH MCHC RDW Plt Count MPV Neut % (Auto) Lymph % (Auto) [place] % (Auto) Eos % (Auto) Baso % (Auto) Neut # Lymph # [place] # Eos # Baso # Neutrophils % (Manual) Lymphocytes % (Manual) Monocytes % (Manual) Platelet Estimate Large Platelets Giant Platelets Polychromasia Hypochromasia (manual) Anisocytosis (manual) Tear Drop Cells Ovalocytes Schistocytes PT INR APTT pCO2 pO2 HCO3 ABG pH ABG Total CO2 ABG O2 Saturation ABG O2 Content ABG Base Excess ABG Hemoglobin ABG Carboxyhemoglobin POC ABG HHb (Measured) ABG Methemoglobin ABG O2 Capacity [place] Test ABG Potassium VBG pH VBG pCO2 VBG HCO3 VBG Total CO2 VBG O2 Sat (Calc) VBG Base Excess VBG Potassium A-a O2 Difference Hgb O2 Saturation Sodium Chloride Glucose Lactate Vent Mode FiO2 Blood Gas Comments Crit Value Called To Crit Value Called By Crit Value Read Back Blood Gas Notified Time Potassium Carbon Dioxide Anion Gap BUN Creatinine Est GFR ( Amer) Est GFR (Non-Af Amer) POC Glucose (mg/dL) 248 H 210 H Random Glucose Calcium Phosphorus Magnesium Total Bilirubin AST ALT Alkaline Phosphatase Troponin I NT-Pro-B Natriuret Pep Total Protein Albumin Globulin Albumin/Globulin Ratio Arterial Blood Potassium Venous Blood Potassium Urine Color Urine Clarity Urine pH Ur Specific [place] Urine Protein Urine Glucose (UA) Urine Ketones Urine Blood Urine Nitrate Urine Bilirubin Urine Urobilinogen Ur Leukocyte Esterase Urine RBC (Auto) Urine Microscopic WBC Ur Squamous Epith Cells Urine Bacteria Hyaline Casts Digoxin Influenza Typ A,B (EIA) - EKG Data EKG Interpreted by: Myself EKG shows normal: Sinus rhythm Assessment & Plan (1) Pneumonia Assessment and Plan: continue antibiotics Status: Acute (2) Severe sepsis Assessment and Plan: as above. appears ti be clinically stable. Status: Acute (3) Benign essential HTN Assessment and Plan: blood pressure control Status: Acute (4) Atrial fibrillation Assessment and Plan: rate controlled. continue anticoagulation Status: Chronic
[2017-06-12] MEDS ORDERED: Potassium Chloride 20 mEq ER Tab PO ONE (16:58)
--- NOTE | 2017-06-12 17:32 | CP.PCM.PN ---
Subjective - Date & Time of Evaluation Date of Evaluation: 06/12/17 Time of Evaluation: 17:30 - Subjective Subjective: I D NOTE PATIENT EXAMINED ,CHART REVIEWED FULL CONSULT DICTATED Objective - Vital Signs/Intake and Output Vital Signs (last 24 hours): Temp Pulse Resp BP Pulse Ox 98.2 F 65 22 123/74 100 06/12/17 16:00 06/12/17 16:00 06/12/17 16:00 06/12/17 16:00 06/12/17 16:00 Intake and Output: 06/12/17 06/12/17 06:59 18:59 Intake Total 435 1680 Output Total 500 400 Balance -65 1280 - Medications Medications: Current Medications Albuterol/Ipratropium (Duoneb 3 Mg/0.5 Mg (3 Ml) Ud) 3 ml INH RQ4 [facility] Last Admin: 06/12/17 15:22 Dose: 3 ml Azithromycin 500 mg/ Sodium (Chloride) 250 mls @ 250 mls/hr IVPB DAILY@2200 [facility] PRN Reason: Protocol Sodium Chloride (Sodium Chloride 0.9%) 1,000 mls @ 75 mls/hr IV .[id number] [facility] Stop: 06/12/17 18:33 Last Admin: 06/12/17 03:15 Dose: 75 mls/hr Vancomycin HCl 500 mg/ Sodium (Chloride) 100 mls @ 100 mls/hr IVPB Q12H [facility] PRN Reason: Protocol Last Admin: 06/12/17 05:44 Dose: 100 mls/hr Methylprednisolone 60 mg/ (Sodium Chloride) 50 mls @ 100 mls/hr IVPB Q8 [facility] Last Admin: 06/12/17 16:59 Dose: 100 mls/hr Piperacillin Sod/Tazobactam (Sod 3.375 gm/ Sodium Chloride) 100 mls @ 100 mls/ hr IVPB Q8@0300,1100,1900 [facility] PRN Reason: Protocol Last Admin: 06/12/17 12:09 Dose: 100 mls/hr Insulin Human Lispro (Humalog) 0 units SC ACHS [facility] PRN Reason: Protocol Last Admin: 06/12/17 16:58 Dose: 2 u Rivaroxaban (Xarelto) 15 mg PO DAILY [facility] PRN Reason: Protocol Last Admin: 06/12/17 14:11 Dose: 15 mg - Labs Labs: 06/12/17 04:35 06/12/17 04:35 PT 24.4 Seconds (9.8-13.1) H 06/11/17 16:54 INR 2.1 (0.9-1.2) H 06/11/17 16:54 APTT 33.8 Seconds (25.6-37.1) 06/11/17 16:54
[2017-06-12] MEDS: Azithromycin 500 MG in Sodium Chloride 0.9% 250 ML IVPB SCH (21:48)
--- NOTE | 2017-06-12 22:50 | CON ---
INFECTIOUS DISEASE CONSULT DATE: HISTORY OF PRESENT ILLNESS: Patient is an 82-year-old female who had apparently been at home with increasing shortness of breath. She increasingly came in with short of breath and was brought to the emergency room where she was found to have possible lactate level of 4.4 and was admitted for exacerbation of COPD and rule out pneumonia. She has a past medical history of hypertension, hypercholesterolemia, atrial fib, bronchitis, CAD, cardiac arrhythmia, and CHF and asthma, also dementia and diabetes. She when seen in the Intensive Care Unit, she said she was not aware of any fever and had no chills, but she did have a productive cough and it was yellowish sputum as she said to have. At this point in the ICU, she has no fever and she is resting comfortably, but respiratory rate is about 20. PHYSICAL EXAMINATION: GENERAL: She is alert and cooperative. HEENT: Within normal limits. NECK: Supple, no palpable masses, no lymphadenopathy. LUNGS: There are decreased breath sounds and scattered rhonchi bilaterally, i.e., wheezing. HEART: Irregular. ABDOMEN: Soft, positive bowel sounds. EXTREMITIES: No CCE. LABORATORY DATA: White count 12.8 on 06/11/2017, it is 7.72 today which is 06/12/2017; hemoglobin is 9.1; she has 92 polys; and platelet count is 269. Cultures are obviously pending and her BUN is 47, creatinine is 0.9, her GFR is 60 and as stated before that she did have a lactate of 4.4 initially, but this is being repeated as we speak or dictate. Chest x-ray, portable shows no active disease. IMPRESSION: Exacerbation of chronic obstructive pulmonary disease, asthma, pneumonia, questionable severe sepsis pending the follow up on her lactate, hypertension, and atrial fibrillation. At the present time, she is on four antibiotics, we will discontinue meropenem and continue vancomycin, Zithromax and Zosyn. Thank you for the consult. We will follow with you. Galileo Tyson MD
[2017-06-13] MEDS: NS IVPB SCH ×3 (00:06→16:35)
[2017-06-13] MEDS: METHYLPREDNISOLONE IVPB SCH ×3 (00:06→16:35)
[2017-06-13] MEDS: Albuterol-Ipratrop 3 mg / 0.5 (3 ml) UD INH SCH ×7 (00:11→23:12)
[2017-06-13] MEDS: Piperacillin/Tazobact 3.375 GM in Sodium Chloride 0.9% 100 ML IVPB SCH ×3 (02:27→18:49)
[2017-06-13 05:01] LABS: HEMATOCRIT 29.1 % (34.0-47.0); MEAN CELL VOLUME 92.5 fl (81.0-99.0); MEAN CORPUSCULAR HEMOGLOBIN 29.6 pg (27.0-31.0); RED CELL DISTRIBUTION WIDTH 17.7 % (11.5-14.5); WHITE BLOOD COUNT 8.1 K/uL (4.8-10.8)
[2017-06-13 05:06] LABS: ALB/GLOB RATIO 1.2 (1.0-2.1); ALKALINE PHOSPHATASE 64 U/L (38-126); ALT/SGPT 62 U/L (9-52); AST/SGOT 43 U/L (14-36); BILIRUBIN,TOTAL 0.4 mg/dl (0.2-1.3); BLOOD UREA NITROGEN 42 mg/dl (7-17); CALCIUM 8.9 mg/dL (8.4-10.2); CARBON DIOXIDE 26 mmol/L (22-30); CHLORIDE 106 mmol/L (98-107); GFR AFRICAN-AMERICAN > 60; GLUCOSE,RANDOM 164 mg/dL (65-105); POTASSIUM 3.8 MMOL/L (3.6-5.0); SODIUM 144 mmol/l (132-148); TOTAL PROTEIN 5.7 G/DL (6.3-8.2)
[2017-06-13] MEDS: Insulin Lispro (humaLOG) 100 Units/ml Inj SC SCH ×4 (06:44→23:05)
--- NOTE | 2017-06-13 11:57 | CP.PCM.PN ---
Subjective - Date & Time of Evaluation Date of Evaluation: 06/13/17 Time of Evaluation: 11:00 - Subjective Subjective: F/U respiratory Distress cough dry , at times with scanty yellowish flegm , chest congestion with difficulty to bring up flegm , no SOB at rest with O2 NC Objective - Vital Signs/Intake and Output Vital Signs (last 24 hours): Temp Pulse Resp BP Pulse Ox 97.5 F L 74 19 114/61 100 06/13/17 08:00 06/13/17 10:00 06/13/17 10:00 06/13/17 10:00 06/13/17 10:00 Intake and Output: 06/13/17 06/13/17 06:59 18:59 Intake Total 935 270 Output Total 400 Balance 535 270 - Medications Medications: Current Medications Acetaminophen (Tylenol 325mg Tab) 650 mg PO Q4 PRN PRN Reason: Fever >100.4 F, headache Last Admin: 06/12/17 23:05 Dose: 650 mg Albuterol/Ipratropium (Duoneb 3 Mg/0.5 Mg (3 Ml) Ud) 3 ml INH RQ4 [facility] Last Admin: 06/13/17 11:05 Dose: 3 ml Azithromycin 500 mg/ Sodium (Chloride) 250 mls @ 250 mls/hr IVPB DAILY@2200 [facility] PRN Reason: Protocol Last Admin: 06/12/17 21:48 Dose: 250 mls/hr Vancomycin HCl 500 mg/ Sodium (Chloride) 100 mls @ 100 mls/hr IVPB Q12H [facility] PRN Reason: Protocol Last Admin: 06/13/17 06:07 Dose: 100 mls/hr Methylprednisolone 60 mg/ (Sodium Chloride) 50 mls @ 100 mls/hr IVPB Q8 [facility] Last Admin: 06/13/17 11:25 Dose: 100 mls/hr Piperacillin Sod/Tazobactam (Sod 3.375 gm/ Sodium Chloride) 100 mls @ 100 mls/ hr IVPB Q8@0300,1100,1900 [facility] PRN Reason: Protocol Last Admin: 06/13/17 11:27 Dose: 100 mls/hr Insulin Human Lispro (Humalog) 0 units SC ACHS [facility] PRN Reason: Protocol Last Admin: 06/13/17 11:24 Dose: 2 u Rivaroxaban (Xarelto) 15 mg PO DAILY [facility] PRN Reason: Protocol Last Admin: 06/13/17 11:26 Dose: 15 mg - Labs Labs: 06/13/17 04:15 06/13/17 04:15 PT 24.4 Seconds (9.8-13.1) H 06/11/17 16:54 INR 2.1 (0.9-1.2) H 06/11/17 16:54 APTT 33.8 Seconds (25.6-37.1) 06/11/17 16:54 - Constitutional Appears: No Acute Distress, Chronically Ill - Head Exam Head Exam: NORMAL INSPECTION - Eye Exam Eye Exam: PERRL - ENT Exam ENT Exam: Normal Exam - Neck Exam Neck Exam: Normal Inspection - Respiratory Exam Respiratory Exam: Rhonchi (b/l) - Cardiovascular Exam Cardiovascular Exam: REGULAR RHYTHM, Murmur (systolic 3/6 LSB-[place] radiated to axilla.) Additional comments: Sternotomy scar. L pacemaker. - GI/Abdominal Exam GI & Abdominal Exam: Soft, Normal Bowel Sounds - Extremities Exam Extremities Exam: Normal Inspection (edema) - Back Exam Back Exam: NORMAL INSPECTION - Neurological Exam Neurological Exam: Alert Additional comments: O x 2, generalized weakness. - Psychiatric Exam Psychiatric exam: Normal Mood - Skin Skin Exam: Warm Assessment and Plan (1) Respiratory distress Status: Acute (2) HCAP (healthcare-associated pneumonia) Status: Acute (3) COPD exacerbation Status: Acute - Assessment and Plan (Free Text) Plan: CT Chest RLL LLL PNA , new RUL PNA, wbc 8.1 , continue current treatment, f/u with ID antibiotic cooverage
--- NOTE | 2017-06-13 14:47 | CP.PCM.PN ---
Subjective - Date & Time of Evaluation Date of Evaluation: 06/13/17 Time of Evaluation: 07:30 - Subjective Subjective: Patient was seen resting comfortably in bed. Denies any overnight events, will be transfered from the ICU to tele today Objective - Vital Signs/Intake and Output Vital Signs (last 24 hours): Temp Pulse Resp BP Pulse Ox 97.9 F 74 20 121/65 100 06/13/17 12:00 06/13/17 12:00 06/13/17 12:00 06/13/17 12:00 06/13/17 12:00 Intake and Output: 06/13/17 06/13/17 06:59 18:59 Intake Total 935 270 Output Total 400 Balance 535 270 - Medications Medications: Current Medications Acetaminophen (Tylenol 325mg Tab) 650 mg PO Q4 PRN PRN Reason: Fever >100.4 F, headache Last Admin: 06/12/17 23:05 Dose: 650 mg Albuterol/Ipratropium (Duoneb 3 Mg/0.5 Mg (3 Ml) Ud) 3 ml INH RQ4 [facility] Last Admin: 06/13/17 11:05 Dose: 3 ml Azithromycin 500 mg/ Sodium (Chloride) 250 mls @ 250 mls/hr IVPB DAILY@2200 [facility] PRN Reason: Protocol Last Admin: 06/12/17 21:48 Dose: 250 mls/hr Vancomycin HCl 500 mg/ Sodium (Chloride) 100 mls @ 100 mls/hr IVPB Q12H [facility] PRN Reason: Protocol Last Admin: 06/13/17 06:07 Dose: 100 mls/hr Methylprednisolone 60 mg/ (Sodium Chloride) 50 mls @ 100 mls/hr IVPB Q8 [facility] Last Admin: 06/13/17 11:25 Dose: 100 mls/hr Piperacillin Sod/Tazobactam (Sod 3.375 gm/ Sodium Chloride) 100 mls @ 100 mls/ hr IVPB Q8@0300,1100,1900 [facility] PRN Reason: Protocol Last Admin: 06/13/17 11:27 Dose: 100 mls/hr Insulin Human Lispro (Humalog) 0 units SC ACHS [facility] PRN Reason: Protocol Last Admin: 06/13/17 11:24 Dose: 2 u Rivaroxaban (Xarelto) 15 mg PO DAILY [facility] PRN Reason: Protocol Last Admin: 06/13/17 11:26 Dose: 15 mg - Labs Labs: 06/13/17 04:15 06/13/17 04:15 PT 24.4 Seconds (9.8-13.1) H 06/11/17 16:54 INR 2.1 (0.9-1.2) H 06/11/17 16:54 APTT 33.8 Seconds (25.6-37.1) 06/11/17 16:54 - Constitutional Appears: No Acute Distress - Head Exam Head Exam: NORMAL INSPECTION - Eye Exam Eye Exam: Normal appearance - Respiratory Exam Respiratory Exam: Rales, Rhonchi, NORMAL BREATHING PATTERN - Cardiovascular Exam Cardiovascular Exam: REGULAR RHYTHM, +S1, +S2 - GI/Abdominal Exam GI & Abdominal Exam: Soft, Normal Bowel Sounds. absent: Tenderness - Extremities Exam Extremities Exam: Normal Inspection - Neurological Exam Neurological Exam: Alert, Awake, Oriented x3 Assessment and Plan - Assessment and Plan (Free Text) Assessment: 82 YO F admitted for dyspnea possibly secondary to acute CHF exacerbation vs COPD exacerbation vs Pnemonia 1) Severe Sepsis secondary to HCAP - previous echo reviewed : EF : 65- 75 % - Orchestrator: Dr. Jean consulted - Albuterol/ Ipratropium Q4 - Methylprednisolone 60 mg Q8- - VAncomycin 500 Q12 - Zosyn 4.5mg 2) COPD exacerbation - solumedrol 60 mg IV Q8h - duonebs 3mL Inh Q4h - Azithromycin 500 daily 3) CHF - last echo 05/15/2017 showed EF 60-65%, severe tricuspid regurgitation, severe pulmonary hypertension - on maintenance IVF NS @ 75mL/hr 4) Afib - home medication digoxin and Xarelto not restarted yet - has atrial sensed ventricular paced pacemaker 5) DVT prophylaxis -SCD
--- NOTE | 2017-06-13 15:03 | CT ---
PROCEDURE: CT Chest without contrast HISTORY: COPD Exacerbation , Sepsis COMPARISON: 05/21/2017 TECHNIQUE: Contiguous axial images were obtained through the chest without intravenous contrast enhancement. Sagittal and coronal reconstructions were performed. Radiation dose (DLP): 297.75 mGy-cm. This CT exam was performed using one or more of the following dose reduction techniques: Automated exposure control, adjustment of the mA and/or kV according to patient size, and/or use of iterative reconstruction technique. FINDINGS: LUNGS: New right upper lobe infiltrate. Consolidative changes persist right lower lobe, compressive atelectasis similar to that seen previously. Consolidative changes lateral and basilar segments left lower lobe. MEDIASTINUM: Unremarkable thoracic aorta. No aneurysm. Cardiomegaly. No evidence of acute, significant cardiovascular disease. Dilated main pulmonary artery 3.6 cm consistent with pulmonary arterial hypertension. Stable appearance of mediastinal lymph nodes. PLEURA: Stable right pleural effusion, a tiny new left pleural effusion. BONES: No fracture. No destructive lesion. UPPER ABDOMEN: Grossly unremarkable. OTHER FINDINGS: None. IMPRESSION: New right upper lobe infiltrate. Additional pulmonary and pleural findings described in greater detail above. With the exception of new trace left pleural effusion, no significant interval changes.
[2017-06-13] MEDS: Azithromycin 500 MG in Sodium Chloride 0.9% 250 ML IVPB SCH (21:51)
[2017-06-14] MEDS: METHYLPREDNISOLONE IVPB SCH ×2 (01:22→09:00)
[2017-06-14] MEDS: NS IVPB SCH ×2 (01:22→09:00)
[2017-06-14] MEDS: Piperacillin/Tazobact 3.375 GM in Sodium Chloride 0.9% 100 ML IVPB SCH ×4 (03:30→21:43)
[2017-06-14] MEDS: Albuterol-Ipratrop 3 mg / 0.5 (3 ml) UD INH SCH ×6 (04:36→23:48)
--- NOTE | 2017-06-14 08:20 | PQF CHF ---
This form is a permanent part of the medical record 06/14/17 Dr. Lawrence, Please specify the type and acuity of heart failure in your progress notes. Documentation of a history of CHF. Admitted with dyspnea and productive cough. Lactate 4.4. H&P: Dyspnea secondary to acute CHF vs COPD exacerbation vs Pneumonia. CHF Last echo 05/15/17 showed and EF of 60-65%, severe TR, severe pulmonary HTN. At home patient is on Lasix. PROBNP 8730. CT CHEST: NEW RUL infiltrate, pleural effusion. Clarification of your documentation is requested to better reflect the severity of illness and intensity of treatment of your patient. Indicators present [x] Diagnosis of CHF and/or history of CHF [x] BNP > 200 [x] Imaging Finding of Pleural Effusions, + Infiltrate [] Fluid/Volume Overload [] Pitting edema [] Ejection Fraction < 40% (Indicative of Systolic Heart Failure) [x] Ejection Fraction > 40% (Indicative of Diastolic Heart Failure) [x] Dyspnea / Orthopenea / Paroxysmal Nocturnal Dyspnea [] Other: Location in the medical record that reflects the above clinical findings: [] Treatment Provided: [] PHYSICIAN'S RESPONSE Based on your medical judgment of the clinical indicators outlined above, are you treating this patient for a known or suspected: [] Acute CHF [] Systolic [] Diastolic [] Combined [] Chronic CHF [] Systolic [] Diastolic [] Combined [] Acute on Chronic CHF []Systolic [] Diastolic [] Combined [] CHF due hypertension [] Acute systolic []Chronic systolic [] Acute/ chronic systolic [] Other, please indicate: [] [] If Unable to Determine, please check the box, sign and date. Present On Admission (POA) Indicator: [] Present at the time of admission [] Not present at the time of admission [] Clinically Undetermined In responding to this query, please exercise your independent professional judgment. The fact that a question is asked does not imply that any particular answer is desired or expected. Thank you for your clarification on this documentation. If you have any questions please call:ext [phone] * Thank you, Brenda Hendrickson RN CDMP [facility]
--- NOTE | 2017-06-14 11:05 | CP.PCM.PN ---
Subjective - Date & Time of Evaluation Date of Evaluation: 06/14/17 Time of Evaluation: 11:03 - Subjective Subjective: 82 YO F seen resting in telemetry today. Denies any acute overnight events. However is notably using accessory muscles during respiration. Objective - Vital Signs/Intake and Output Vital Signs (last 24 hours): Temp Pulse Resp BP Pulse Ox 97.6 F 69 18 158/86 H 100 06/14/17 08:00 06/14/17 08:00 06/14/17 08:00 06/14/17 08:00 06/14/17 08:00 Intake and Output: 06/14/17 06/14/17 06:59 18:59 Intake Total 980 Output Total 600 Balance 380 - Medications Medications: Current Medications Acetaminophen (Tylenol 325mg Tab) 650 mg PO Q4 PRN PRN Reason: Fever >100.4 F, headache Last Admin: 06/12/17 23:05 Dose: 650 mg Albuterol/Ipratropium (Duoneb 3 Mg/0.5 Mg (3 Ml) Ud) 3 ml INH RQ4 [facility] Last Admin: 06/14/17 07:25 Dose: 3 ml Azithromycin 500 mg/ Sodium (Chloride) 250 mls @ 250 mls/hr IVPB DAILY@2200 [facility] PRN Reason: Protocol Last Admin: 06/13/17 21:51 Dose: 250 mls/hr Methylprednisolone 60 mg/ (Sodium Chloride) 50 mls @ 100 mls/hr IVPB Q8 [facility] Last Admin: 06/14/17 09:00 Dose: 100 mls/hr Piperacillin Sod/Tazobactam (Sod 3.375 gm/ Sodium Chloride) 100 mls @ 100 mls/ hr IVPB Q8@0300,1100,1900 [facility] PRN Reason: Protocol Last Admin: 06/14/17 03:30 Dose: 100 mls/hr Vancomycin HCl 500 mg/ Sodium (Chloride) 100 mls @ 100 mls/hr IVPB Q12@0900, 2100 [facility] PRN Reason: Protocol Last Admin: 06/13/17 21:53 Dose: 100 mls/hr Insulin Human Lispro (Humalog) 0 units SC ACHS [facility] PRN Reason: Protocol Last Admin: 06/13/17 23:05 Dose: Not Given Rivaroxaban (Xarelto) 15 mg PO DAILY [facility] PRN Reason: Protocol Last Admin: 06/13/17 11:26 Dose: 15 mg - Labs Labs: 06/13/17 04:15 06/13/17 04:15 PT 24.4 Seconds (9.8-13.1) H 06/11/17 16:54 INR 2.1 (0.9-1.2) H 06/11/17 16:54 APTT 33.8 Seconds (25.6-37.1) 06/11/17 16:54 - Constitutional Appears: No Acute Distress - Head Exam Head Exam: NORMAL INSPECTION - Respiratory Exam Respiratory Exam: Accessory Muscle Use, Rales, Rhonchi - Cardiovascular Exam Cardiovascular Exam: REGULAR RHYTHM, +S1, +S2 - GI/Abdominal Exam GI & Abdominal Exam: Soft, Tenderness, Normal Bowel Sounds - Extremities Exam Extremities Exam: Normal Capillary Refill, Normal Inspection - Neurological Exam Neurological Exam: Alert, Awake, CN II-XII Intact, Oriented x3 - Skin Skin Exam: Normal Color, Warm Assessment and Plan - Assessment and Plan (Free Text) Assessment: 1) Severe Sepsis secondary to HCAP - previous echo reviewed : EF : 65- 75 % - Comfort Advisor: Dr. Jean consulted - Albuterol/ Ipratropium Q4 - Methylprednisolone 60 mg Q8- - VAncomycin 500 Q12 - Zosyn 4.5mg 2) COPD exacerbation - solumedrol 60 mg IV Q8h - duonebs 3mL Inh Q4h - Azithromycin 500 daily 3) Left sided acute on chronic diastolic dysfunction with preserved EF. - last echo 05/15/2017 showed EF 60-65%, severe tricuspid regurgitation, severe pulmonary hypertension - Lasix 40 mg BID ordered today - on maintenance IVF NS @ 75mL/hr 4) Afib - home medication digoxin and Xarelto not restarted yet - has atrial sensed ventricular paced pacemaker 5) DVT prophylaxis -SCD
[2017-06-14] MEDS ORDERED: Albuterol-Ipratrop 3 mg / 0.5 (3 ml) UD IH PRN (11:32)
[2017-06-14] MEDS: Insulin Lispro (humaLOG) 100 Units/ml Inj SC SCH ×3 (12:00→21:42)
--- NOTE | 2017-06-14 12:47 | CP.PCM.PN ---
Subjective - Date & Time of Evaluation Date of Evaluation: 06/14/17 Time of Evaluation: 12:35 - Subjective Subjective: patient has no current chest pain. Objective - Vital Signs/Intake and Output Vital Signs (last 24 hours): Temp Pulse Resp BP Pulse Ox 97.6 F 69 18 158/86 H 100 06/14/17 08:00 06/14/17 08:00 06/14/17 08:00 06/14/17 08:00 06/14/17 08:00 Intake and Output: 06/14/17 06/14/17 06:59 18:59 Intake Total 980 Output Total 600 Balance 380 - Medications Medications: Current Medications Acetaminophen (Tylenol 325mg Tab) 650 mg PO Q4 PRN PRN Reason: Fever >100.4 F, headache Last Admin: 06/12/17 23:05 Dose: 650 mg Albuterol/Ipratropium (Duoneb 3 Mg/0.5 Mg (3 Ml) Ud) 3 ml INH RQ4 [facility] Last Admin: 06/14/17 11:33 Dose: 3 ml Albuterol/Ipratropium (Duoneb 3 Mg/0.5 Mg (3 Ml) Ud) 3 ml IH Q6H PRN PRN Reason: Shortness of Breath Benzonatate (Tessalon Perles) 100 mg PO TID PRN PRN Reason: Cough Digoxin (Lanoxin) 0.125 mg PO DAILY [facility] Ferrous Sulfate (Feosol) 325 mg PO DAILY [facility] Furosemide (Lasix) 40 mg IVP DAILY [facility] Gabapentin (Neurontin) 300 mg PO HS [facility] Azithromycin 500 mg/ Sodium (Chloride) 250 mls @ 250 mls/hr IVPB DAILY@2200 [facility] PRN Reason: Protocol Last Admin: 06/13/17 21:51 Dose: 250 mls/hr Vancomycin HCl 500 mg/ Sodium (Chloride) 100 mls @ 100 mls/hr IVPB Q12@0900, 2100 [facility] PRN Reason: Protocol Last Admin: 06/14/17 09:00 Dose: 100 mls/hr Methylprednisolone 60 mg/ (Sodium Chloride) 100.96 mls @ 201.92 mls/hr IVPB Q8 [facility] Piperacillin Sod/Tazobactam (Sod 3.375 gm/ Sodium Chloride) 100 mls @ 100 mls/ hr IVPB Q6 [facility] PRN Reason: Protocol Insulin Human Lispro (Humalog) 0 units SC ACHS [facility] PRN Reason: Protocol Last Admin: 06/13/17 23:05 Dose: Not Given Metolazone (Zaroxolyn) 2.5 mg PO DAILY [facility] Rivaroxaban (Xarelto) 15 mg PO DAILY [facility] PRN Reason: Protocol Last Admin: 06/14/17 09:00 Dose: 15 mg Tobramycin Sulfate (Tobrex 0.3% Ophth Soln) 1 drop OU TID [facility] Valsartan (Diovan) 160 mg PO DAILY [facility] - Labs Labs: 06/13/17 04:15 06/13/17 04:15 PT 24.4 Seconds (9.8-13.1) H 06/11/17 16:54 INR 2.1 (0.9-1.2) H 06/11/17 16:54 APTT 33.8 Seconds (25.6-37.1) 06/11/17 16:54 - Constitutional Appears: Non-toxic - Eye Exam Eye Exam: Normal appearance - ENT Exam ENT Exam: Mucous Membranes Moist - Neck Exam Neck Exam: Normal Inspection - Respiratory Exam Respiratory Exam: NORMAL BREATHING PATTERN - Cardiovascular Exam Cardiovascular Exam: REGULAR RHYTHM - GI/Abdominal Exam GI & Abdominal Exam: Normal Bowel Sounds - Rectal Exam Rectal Exam: Deferred - Extremities Exam Extremities Exam: absent: Pedal Edema - Back Exam Back Exam: NORMAL INSPECTION - Neurological Exam Neurological Exam: Alert - Psychiatric Exam Psychiatric exam: Normal Affect - Skin Skin Exam: Normal Color Assessment and Plan (1) Pneumonia Assessment & Plan: continue antibiotics Status: Acute (2) Severe sepsis Status: Acute (3) Benign essential HTN Assessment & Plan: blood pressure is controlled Status: Acute (4) Atrial fibrillation Assessment & Plan: s/p AV fabiana ablation. continue antibiotics Status: Chronic
[2017-06-14] MEDS: Digoxin 125 mcg (0.125 mg) Tab PO SCH (12:59)
[2017-06-14] MEDS: Tobramycin 0.3% OPHT SOLN OU SCH ×2 (13:00→18:00)
[2017-06-14] MEDS: metOLazone 2.5 MG TAB PO SCH (13:00)
--- NOTE | 2017-06-14 14:56 | CP.PCM.PN ---
Subjective - Date & Time of Evaluation Date of Evaluation: 06/14/17 Time of Evaluation: 12:00 - Subjective Subjective: F/U Respiratory distress. Patient was transfered to [address] [place] [address] , Patient is eating , smiling , no AD. Objective - Vital Signs/Intake and Output Vital Signs (last 24 hours): Temp Pulse Resp BP Pulse Ox 97.5 F L 81 20 144/88 100 06/14/17 13:22 06/14/17 13:22 06/14/17 13:22 06/14/17 13:22 06/14/17 13:22 Intake and Output: 06/14/17 06/14/17 06:59 18:59 Intake Total 980 Output Total 600 Balance 380 - Medications Medications: Current Medications Acetaminophen (Tylenol 325mg Tab) 650 mg PO Q4 PRN PRN Reason: Fever >100.4 F, headache Last Admin: 06/12/17 23:05 Dose: 650 mg Albuterol/Ipratropium (Duoneb 3 Mg/0.5 Mg (3 Ml) Ud) 3 ml INH RQ4 [facility] Last Admin: 06/14/17 11:33 Dose: 3 ml Albuterol/Ipratropium (Duoneb 3 Mg/0.5 Mg (3 Ml) Ud) 3 ml IH Q6H PRN PRN Reason: Shortness of Breath Benzonatate (Tessalon Perles) 100 mg PO TID PRN PRN Reason: Cough Digoxin (Lanoxin) 0.125 mg PO DAILY [facility] Last Admin: 06/14/17 12:59 Dose: 0.125 mg Ferrous Sulfate (Feosol) 325 mg PO DAILY [facility] Last Admin: 06/14/17 12:58 Dose: 325 mg Furosemide (Lasix) 40 mg IVP DAILY [facility] Gabapentin (Neurontin) 300 mg PO HS [facility] Azithromycin 500 mg/ Sodium (Chloride) 250 mls @ 250 mls/hr IVPB DAILY@2200 [facility] PRN Reason: Protocol Last Admin: 06/13/17 21:51 Dose: 250 mls/hr Vancomycin HCl 500 mg/ Sodium (Chloride) 100 mls @ 100 mls/hr IVPB Q12@0900, 2100 [facility] PRN Reason: Protocol Last Admin: 06/14/17 09:00 Dose: 100 mls/hr Methylprednisolone 60 mg/ (Sodium Chloride) 100.96 mls @ 201.92 mls/hr IVPB Q8 [facility] Piperacillin Sod/Tazobactam (Sod 3.375 gm/ Sodium Chloride) 100 mls @ 100 mls/ hr IVPB Q6 [facility] PRN Reason: Protocol Insulin Human Lispro (Humalog) 0 units SC ACHS [facility] PRN Reason: Protocol Last Admin: 06/14/17 12:00 Dose: 2 u Metolazone (Zaroxolyn) 2.5 mg PO DAILY [facility] Last Admin: 06/14/17 13:00 Dose: 2.5 mg Pantoprazole Sodium (Protonix Ec Tab) 40 mg PO DAILY [facility] Rivaroxaban (Xarelto) 15 mg PO DAILY [facility] PRN Reason: Protocol Last Admin: 06/14/17 09:00 Dose: 15 mg Tobramycin Sulfate (Tobrex 0.3% Ophth Soln) 1 drop OU TID [facility] Last Admin: 06/14/17 13:00 Dose: 1 drop Valsartan (Diovan) 160 mg PO DAILY [facility] Last Admin: 06/14/17 12:58 Dose: 160 mg - Labs Labs: 06/13/17 04:15 06/13/17 04:15 PT 24.4 Seconds (9.8-13.1) H 06/11/17 16:54 INR 2.1 (0.9-1.2) H 06/11/17 16:54 APTT 33.8 Seconds (25.6-37.1) 06/11/17 16:54 - Constitutional Appears: No Acute Distress, Chronically Ill - Head Exam Head Exam: NORMAL INSPECTION - Eye Exam Eye Exam: PERRL - ENT Exam ENT Exam: Normal Exam - Neck Exam Neck Exam: Normal Inspection - Respiratory Exam Respiratory Exam: Decreased Breath Sounds (at bases) - Cardiovascular Exam Cardiovascular Exam: REGULAR RHYTHM, Murmur (systolic 3/6 LSB-[place] radiated to axilla.) Additional comments: Sternotomy scar. PPM - GI/Abdominal Exam GI & Abdominal Exam: Soft, Normal Bowel Sounds - Extremities Exam Extremities Exam: Normal Inspection - Back Exam Back Exam: NORMAL INSPECTION - Neurological Exam Neurological Exam: Alert Additional comments: Forgetful , generalized weakness., no gross focal motor deficit - Psychiatric Exam Psychiatric exam: Normal Mood - Skin Skin Exam: Warm Assessment and Plan (1) Respiratory distress Status: Acute (2) HCAP (healthcare-associated pneumonia) Status: Acute (3) COPD exacerbation Status: Acute - Assessment and Plan (Free Text) Plan: Patient on DuoNeb , Vanco , Zosyn , Clinda
--- NOTE | 2017-06-14 15:00 | CP.PCM.PN ---
Objective - Vital Signs/Intake and Output Vital Signs (last 24 hours): Temp Pulse Resp BP Pulse Ox 97.5 F L 81 20 144/88 100 06/14/17 13:22 06/14/17 13:22 06/14/17 13:22 06/14/17 13:22 06/14/17 13:22 Intake and Output: 06/14/17 06/14/17 06:59 18:59 Intake Total 980 Output Total 600 Balance 380 - Medications Medications: Current Medications Acetaminophen (Tylenol 325mg Tab) 650 mg PO Q4 PRN PRN Reason: Fever >100.4 F, headache Last Admin: 06/12/17 23:05 Dose: 650 mg Albuterol/Ipratropium (Duoneb 3 Mg/0.5 Mg (3 Ml) Ud) 3 ml INH RQ4 [facility] Last Admin: 06/14/17 11:33 Dose: 3 ml Albuterol/Ipratropium (Duoneb 3 Mg/0.5 Mg (3 Ml) Ud) 3 ml IH Q6H PRN PRN Reason: Shortness of Breath Benzonatate (Tessalon Perles) 100 mg PO TID PRN PRN Reason: Cough Digoxin (Lanoxin) 0.125 mg PO DAILY [facility] Last Admin: 06/14/17 12:59 Dose: 0.125 mg Ferrous Sulfate (Feosol) 325 mg PO DAILY [facility] Last Admin: 06/14/17 12:58 Dose: 325 mg Furosemide (Lasix) 40 mg IVP DAILY [facility] Gabapentin (Neurontin) 300 mg PO HS [facility] Azithromycin 500 mg/ Sodium (Chloride) 250 mls @ 250 mls/hr IVPB DAILY@2200 [facility] PRN Reason: Protocol Last Admin: 06/13/17 21:51 Dose: 250 mls/hr Vancomycin HCl 500 mg/ Sodium (Chloride) 100 mls @ 100 mls/hr IVPB Q12@0900, 2100 [facility] PRN Reason: Protocol Last Admin: 06/14/17 09:00 Dose: 100 mls/hr Methylprednisolone 60 mg/ (Sodium Chloride) 100.96 mls @ 201.92 mls/hr IVPB Q8 [facility] Piperacillin Sod/Tazobactam (Sod 3.375 gm/ Sodium Chloride) 100 mls @ 100 mls/ hr IVPB Q6 [facility] PRN Reason: Protocol Insulin Human Lispro (Humalog) 0 units SC ACHS [facility] PRN Reason: Protocol Last Admin: 06/14/17 12:00 Dose: 2 u Metolazone (Zaroxolyn) 2.5 mg PO DAILY [facility] Last Admin: 06/14/17 13:00 Dose: 2.5 mg Pantoprazole Sodium (Protonix Ec Tab) 40 mg PO DAILY [facility] Rivaroxaban (Xarelto) 15 mg PO DAILY [facility] PRN Reason: Protocol Last Admin: 06/14/17 09:00 Dose: 15 mg Tobramycin Sulfate (Tobrex 0.3% Oph Soln) 1 drop OU TID [facility] Last Admin: 06/14/17 13:00 Dose: 1 drop Valsartan (Diovan) 160 mg PO DAILY [facility] Last Admin: 06/14/17 12:58 Dose: 160 mg - Labs Labs: 06/13/17 04:15 06/13/17 04:15 PT 24.4 Seconds (9.8-13.1) H 06/11/17 16:54 INR 2.1 (0.9-1.2) H 06/11/17 16:54 APTT 33.8 Seconds (25.6-37.1) 06/11/17 16:54 Assessment and Plan (1) Respiratory distress Status: Acute (2) Severe sepsis Status: Acute (3) COPD exacerbation Status: Acute
[2017-06-14] MEDS: Pantoprazole 40 mg EC Tab PO SCH (15:36)
[2017-06-14] MEDS: methylPREDNISolone 60 MG in Sodium Chloride 0.9% 100 ML IVPB SCH (17:00)
--- NOTE | 2017-06-14 18:03 | CP.PCM.PN ---
Subjective - Date & Time of Evaluation Date of Evaluation: 06/14/17 Time of Evaluation: 18:04 - Subjective Subjective: I D NOTE SERUM LACTATE IS >3 CT SCAN :RUL INFILTRATE NOTED AFEBRILE HAVE DC/ED ZITHROMAX AND STARTED CLINDAMYCIN Objective - Vital Signs/Intake and Output Vital Signs (last 24 hours): Temp Pulse Resp BP Pulse Ox 98.4 F 70 16 138/85 100 06/14/17 16:00 06/14/17 16:00 06/14/17 16:00 06/14/17 16:00 06/14/17 16:00 Intake and Output: 06/14/17 06/14/17 06:59 18:59 Intake Total 980 Output Total 600 Balance 380 - Medications Medications: Current Medications Acetaminophen (Tylenol 325mg Tab) 650 mg PO Q4 PRN PRN Reason: Fever >100.4 F, headache Last Admin: 06/12/17 23:05 Dose: 650 mg Albuterol/Ipratropium (Duoneb 3 Mg/0.5 Mg (3 Ml) Ud) 3 ml INH RQ4 [facility] Last Admin: 06/14/17 15:24 Dose: 3 ml Albuterol/Ipratropium (Duoneb 3 Mg/0.5 Mg (3 Ml) Ud) 3 ml IH Q6H PRN PRN Reason: Shortness of Breath Benzonatate (Tessalon Perles) 100 mg PO TID PRN PRN Reason: Cough Digoxin (Lanoxin) 0.125 mg PO DAILY [facility] Last Admin: 06/14/17 12:59 Dose: 0.125 mg Ferrous Sulfate (Feosol) 325 mg PO DAILY [facility] Last Admin: 06/14/17 12:58 Dose: 325 mg Furosemide (Lasix) 40 mg IVP DAILY [facility] Gabapentin (Neurontin) 300 mg PO HS [facility] Vancomycin HCl 500 mg/ Sodium (Chloride) 100 mls @ 100 mls/hr IVPB Q12@0900, 2100 [facility] PRN Reason: Protocol Last Admin: 06/14/17 09:00 Dose: 100 mls/hr Methylprednisolone 60 mg/ (Sodium Chloride) 100.96 mls @ 201.92 mls/hr IVPB Q8 [facility] Piperacillin Sod/Tazobactam (Sod 3.375 gm/ Sodium Chloride) 100 mls @ 100 mls/ hr IVPB Q6 [facility] PRN Reason: Protocol Last Admin: 06/14/17 15:37 Dose: 100 mls/hr Clindamycin Phosphate 600 mg/ (Sodium Chloride) 54 mls @ 54 mls/hr IVPB Q12 [facility] PRN Reason: Protocol Insulin Human Lispro (Humalog) 0 units SC ACHS [facility] PRN Reason: Protocol Last Admin: 06/14/17 12:00 Dose: 2 u Metolazone (Zaroxolyn) 2.5 mg PO DAILY [facility] Last Admin: 06/14/17 13:00 Dose: 2.5 mg Pantoprazole Sodium (Protonix Ec Tab) 40 mg PO DAILY [facility] Last Admin: 06/14/17 15:36 Dose: 40 mg Rivaroxaban (Xarelto) 15 mg PO DAILY [facility] PRN Reason: Protocol Last Admin: 06/14/17 09:00 Dose: 15 mg Tobramycin Sulfate (Tobrex 0.3% [facility]) 1 drop OU TID [facility] Last Admin: 06/14/17 13:00 Dose: 1 drop Valsartan (Diovan) 160 mg PO DAILY [facility] Last Admin: 06/14/17 12:58 Dose: 160 mg - Labs Labs: 06/13/17 04:15 06/13/17 04:15 PT 24.4 Seconds (9.8-13.1) H 06/11/17 16:54 INR 2.1 (0.9-1.2) H 06/11/17 16:54 APTT 33.8 Seconds (25.6-37.1) 06/11/17 16:54
[2017-06-14] MEDS: Clindamycin 600 MG in Sodium Chloride 0.9% 100 ML IVPB SCH (21:44)
[2017-06-15] MEDS: methylPREDNISolone 60 MG in Sodium Chloride 0.9% 100 ML IVPB SCH ×3 (01:04→17:00)
[2017-06-15] MEDS: Albuterol-Ipratrop 3 mg / 0.5 (3 ml) UD INH SCH ×5 (04:23→19:04)
[2017-06-15] MEDS: Piperacillin/Tazobact 3.375 GM in Sodium Chloride 0.9% 100 ML IVPB SCH ×4 (04:28→21:06)
[2017-06-15 05:36] LABS: HEMATOCRIT 31.2 % (34.0-47.0); MEAN CELL VOLUME 92.8 fl (81.0-99.0); MEAN CORPUSCULAR HEMOGLOBIN 29.5 pg (27.0-31.0); MEAN CORPUSCULAR HGB CONC 31.8 g/dL (33.0-37.0); RED CELL DISTRIBUTION WIDTH 18.1 % (11.5-14.5); WHITE BLOOD COUNT 8.2 K/uL (4.8-10.8)
[2017-06-15] MEDS: Insulin Lispro (humaLOG) 100 Units/ml Inj SC SCH ×4 (07:00→21:43)
[2017-06-15 07:49] LABS: CALCIUM 8.8 mg/dL (8.4-10.2); POTASSIUM 4.2 MMOL/L (3.6-5.0)
[2017-06-15] MEDS: Pantoprazole 40 mg EC Tab PO SCH (09:00)
[2017-06-15] MEDS: Clindamycin 600 MG in Sodium Chloride 0.9% 100 ML IVPB SCH ×2 (09:00→20:27)
[2017-06-15] MEDS: Digoxin 125 mcg (0.125 mg) Tab PO SCH (09:00)
[2017-06-15] MEDS: Tobramycin 0.3% OPHT SOLN OU SCH ×3 (09:36→17:00)
[2017-06-15] MEDS: metOLazone 2.5 MG TAB PO SCH (09:37)
--- NOTE | 2017-06-15 11:05 | CP.PCM.PN ---
Subjective - Date & Time of Evaluation Date of Evaluation: 06/15/17 Time of Evaluation: 09:00 - Subjective Subjective: Patient seen and examined with Dr. Lawrence at bedside. PT was seen at bedside with the patient. Patient has been enouraged to follow PT recommendations. Patient states she feels weak. Objective - Vital Signs/Intake and Output Vital Signs (last 24 hours): Temp Pulse Resp BP Pulse Ox 98.2 F 67 18 131/75 100 06/15/17 08:00 06/15/17 08:00 06/15/17 08:00 06/15/17 09:00 06/15/17 08:00 Intake and Output: 06/15/17 06/15/17 06:59 18:59 Intake Total 890 Output Total 350 Balance 540 - Medications Medications: Current Medications Acetaminophen (Tylenol 325mg Tab) 650 mg PO Q4 PRN PRN Reason: Fever >100.4 F, headache Last Admin: 06/12/17 23:05 Dose: 650 mg Albuterol/Ipratropium (Duoneb 3 Mg/0.5 Mg (3 Ml) Ud) 3 ml INH RQ4 [facility] Last Admin: 06/15/17 07:45 Dose: 3 ml Albuterol/Ipratropium (Duoneb 3 Mg/0.5 Mg (3 Ml) Ud) 3 ml IH Q6H PRN PRN Reason: Shortness of Breath Benzonatate (Tessalon Perles) 100 mg PO TID PRN PRN Reason: Cough Digoxin (Lanoxin) 0.125 mg PO DAILY [facility] Last Admin: 06/15/17 09:00 Dose: 0.125 mg Ferrous Sulfate (Feosol) 325 mg PO DAILY [facility] Last Admin: 06/15/17 09:00 Dose: 325 mg Furosemide (Lasix) 40 mg IVP DAILY [facility] Last Admin: 06/15/17 09:00 Dose: 40 mg Gabapentin (Neurontin) 300 mg PO HS [facility] Last Admin: 06/14/17 21:50 Dose: 300 mg Vancomycin HCl 500 mg/ Sodium (Chloride) 100 mls @ 100 mls/hr IVPB Q12@0900, 2100 [facility] PRN Reason: Protocol Last Admin: 06/15/17 09:00 Dose: 100 mls/hr Methylprednisolone 60 mg/ (Sodium Chloride) 100.96 mls @ 201.92 mls/hr IVPB Q8 [facility] Last Admin: 06/15/17 09:00 Dose: 201.92 mls/hr Piperacillin Sod/Tazobactam (Sod 3.375 gm/ Sodium Chloride) 100 mls @ 100 mls/ hr IVPB Q6 [facility] PRN Reason: Protocol Last Admin: 06/15/17 09:00 Dose: 100 mls/hr Clindamycin Phosphate 600 mg/ (Sodium Chloride) 104 mls @ 104 mls/hr IVPB Q12 [facility] PRN Reason: Protocol Last Admin: 06/14/17 21:44 Dose: 104 mls/hr Insulin Human Lispro (Humalog) 0 units SC ACHS [facility] PRN Reason: Protocol Last Admin: 06/15/17 07:00 Dose: 2 u Metolazone (Zaroxolyn) 2.5 mg PO DAILY [facility] Last Admin: 06/15/17 09:37 Dose: 2.5 mg Pantoprazole Sodium (Protonix Ec Tab) 40 mg PO DAILY [facility] Last Admin: 06/15/17 09:00 Dose: 40 mg Rivaroxaban (Xarelto) 15 mg PO DAILY [facility] PRN Reason: Protocol Last Admin: 06/15/17 09:00 Dose: 15 mg Tobramycin Sulfate (Tobrex 0.3% Ophth Soln) 1 drop OU TID [facility] Last Admin: 06/15/17 09:36 Dose: 1 drop Valsartan (Diovan) 160 mg PO DAILY [facility] Last Admin: 06/15/17 09:37 Dose: 160 mg - Labs Labs: 06/15/17 04:30 06/15/17 04:30 PT 24.4 Seconds (9.8-13.1) H 06/11/17 16:54 INR 2.1 (0.9-1.2) H 06/11/17 16:54 APTT 33.8 Seconds (25.6-37.1) 06/11/17 16:54 - Constitutional Appears: No Acute Distress - Head Exam Head Exam: NORMAL INSPECTION - Eye Exam Eye Exam: Normal appearance - Respiratory Exam Respiratory Exam: Rhonchi, Wheezes - Cardiovascular Exam Cardiovascular Exam: REGULAR RHYTHM, +S1, +S2 - GI/Abdominal Exam GI & Abdominal Exam: Soft, Normal Bowel Sounds. absent: Tenderness - Extremities Exam Extremities Exam: absent: Calf Tenderness - Neurological Exam Neurological Exam: Alert, Awake, Oriented x3 Assessment and Plan - Assessment and Plan (Free Text) Assessment: 1) Pnuemonia : HCAP vs Aspiration - CT scan Right upper lobe infilterate noted - Septic shock ruled out - Lactic acid is 2.0 today - VAncomycin 500 Q12 - Zosyn 4.5mg - ID has added on Clindamycin Q12 - ID consult is appreciated 2) COPD exacerbation - solumedrol 60 mg IV Q8h - duonebs 3mL Inh Q4h - Methylprednisolone 60 mg Q8- 3) Left sided acute on chronic diastolic dysfunction with preserved EF. - previous echo reviewed : EF : 65- 75 % - Stage Producer: Dr. Jean consulted - last echo 05/15/2017 showed EF 60-65%, severe tricuspid regurgitation, severe pulmonary hypertension - Lasix 40 mg BID ordered today - on maintenance IVF NS @ 75mL/hr 4) Afib - home medication digoxin and Xarelto not restarted yet - has atrial sensed ventricular paced pacemaker 5) DVT prophylaxis -SCD
--- NOTE | 2017-06-15 16:27 | CP.PCM.PN ---
Subjective - Date & Time of Evaluation Date of Evaluation: 06/15/17 - Subjective Subjective: Alert , smiling , no AD, no SOB Objective - Vital Signs/Intake and Output Vital Signs (last 24 hours): Temp Pulse Resp BP Pulse Ox 98.2 F 79 20 147/71 98 06/15/17 15:45 06/15/17 15:45 06/15/17 15:45 06/15/17 15:45 06/15/17 15:45 Intake and Output: 06/15/17 06/15/17 06:59 18:59 Intake Total 890 Output Total 350 Balance 540 - Medications Medications: Current Medications Acetaminophen (Tylenol 325mg Tab) 650 mg PO Q4 PRN PRN Reason: Fever >100.4 F, headache Last Admin: 06/12/17 23:05 Dose: 650 mg Albuterol/Ipratropium (Duoneb 3 Mg/0.5 Mg (3 Ml) Ud) 3 ml INH RQ4 [facility] Last Admin: 06/15/17 15:46 Dose: 3 ml Albuterol/Ipratropium (Duoneb 3 Mg/0.5 Mg (3 Ml) Ud) 3 ml IH Q6H PRN PRN Reason: Shortness of Breath Benzonatate (Tessalon Perles) 100 mg PO TID PRN PRN Reason: Cough Digoxin (Lanoxin) 0.125 mg PO DAILY [facility] Last Admin: 06/15/17 09:00 Dose: 0.125 mg Ferrous Sulfate (Feosol) 325 mg PO DAILY [facility] Last Admin: 06/15/17 09:00 Dose: 325 mg Furosemide (Lasix) 40 mg IVP DAILY [facility] Last Admin: 06/15/17 09:00 Dose: 40 mg Gabapentin (Neurontin) 300 mg PO HS [facility] Last Admin: 06/14/17 21:50 Dose: 300 mg Vancomycin HCl 500 mg/ Sodium (Chloride) 100 mls @ 100 mls/hr IVPB Q12@0900, 2100 [facility] PRN Reason: Protocol Last Admin: 06/15/17 09:00 Dose: 100 mls/hr Methylprednisolone 60 mg/ (Sodium Chloride) 100.96 mls @ 201.92 mls/hr IVPB Q8 [facility] Last Admin: 06/15/17 09:00 Dose: 201.92 mls/hr Piperacillin Sod/Tazobactam (Sod 3.375 gm/ Sodium Chloride) 100 mls @ 100 mls/ hr IVPB Q6 [facility] PRN Reason: Protocol Last Admin: 06/15/17 09:00 Dose: 100 mls/hr Clindamycin Phosphate 600 mg/ (Sodium Chloride) 104 mls @ 104 mls/hr IVPB Q12 [facility] PRN Reason: Protocol Last Admin: 06/14/17 21:44 Dose: 104 mls/hr Insulin Human Lispro (Humalog) 0 units SC ACHS [facility] PRN Reason: Protocol Last Admin: 06/15/17 12:00 Dose: 2 u Metolazone (Zaroxolyn) 2.5 mg PO DAILY [facility] Last Admin: 06/15/17 09:37 Dose: 2.5 mg Pantoprazole Sodium (Protonix Ec Tab) 40 mg PO DAILY [facility] Last Admin: 06/15/17 09:00 Dose: 40 mg Rivaroxaban (Xarelto) 15 mg PO DAILY [facility] PRN Reason: Protocol Last Admin: 06/15/17 09:00 Dose: 15 mg Tobramycin Sulfate (Tobrex 0.3% Ophth Soln) 1 drop OU TID [facility] Last Admin: 06/15/17 13:23 Dose: Not Given Valsartan (Diovan) 160 mg PO DAILY [facility] Last Admin: 06/15/17 09:37 Dose: 160 mg - Labs Labs: 06/15/17 04:30 06/15/17 04:30 PT 24.4 Seconds (9.8-13.1) H 06/11/17 16:54 INR 2.1 (0.9-1.2) H 06/11/17 16:54 APTT 33.8 Seconds (25.6-37.1) 06/11/17 16:54 - Constitutional Appears: Chronically Ill - Head Exam Head Exam: NORMAL INSPECTION - Eye Exam Eye Exam: PERRL - ENT Exam ENT Exam: Normal Exam - Neck Exam Neck Exam: Normal Inspection - Respiratory Exam Respiratory Exam: Rhonchi (B/L) - Cardiovascular Exam Cardiovascular Exam: REGULAR RHYTHM, Murmur (SM 3/6 LSB [place] Ax[place]) - GI/Abdominal Exam GI & Abdominal Exam: Soft, Normal Bowel Sounds - Extremities Exam Extremities Exam: Normal Inspection - Back Exam Back Exam: NORMAL INSPECTION - Neurological Exam Neurological Exam: Alert Additional comments: forgetful, generalized weakness , no focal motor deficit - Psychiatric Exam Psychiatric exam: Normal Mood - Skin Skin Exam: Warm Assessment and Plan (1) Respiratory distress Status: Acute (2) HCAP (healthcare-associated pneumonia) Status: Acute (3) COPD exacerbation Status: Acute - Assessment and Plan (Free Text) Plan: Continue Clinda, Vanco , Zosyn , Solu medrol
[2017-06-16] MEDS: Albuterol-Ipratrop 3 mg / 0.5 (3 ml) UD INH SCH ×7 (00:06→23:25)
--- NOTE | 2017-06-16 01:05 | CP.PCM.PCO ---
Physician Communication Note - Physician Communication Note Physician Communication Note: called by nurse, pharmacy did not have ordered Solumderol in 100mL solution Subjective - Physician Review Subjective (Free Text): 06/16/17 01:03 Called by nurse, pharmacy did not have Solumedrol in 100ml solution, per nurses and pharmacy request: discontinued current order and placed order for Solumedrol 60mg IVP Q8.
[2017-06-16] MEDS: Piperacillin/Tazobact 3.375 GM in Sodium Chloride 0.9% 100 ML IVPB SCH ×4 (04:42→21:34)
[2017-06-16] MEDS: Clindamycin 600 MG in Sodium Chloride 0.9% 100 ML IVPB SCH ×2 (10:08→20:45)
[2017-06-16] MEDS: Insulin Lispro (humaLOG) 100 Units/ml Inj SC SCH ×5 (10:11→21:33)
[2017-06-16] MEDS: Digoxin 125 mcg (0.125 mg) Tab PO SCH (10:14)
[2017-06-16] MEDS: Pantoprazole 40 mg EC Tab PO SCH (10:16)
[2017-06-16] MEDS: Tobramycin 0.3% OPHT SOLN OU SCH ×4 (10:16→17:53)
[2017-06-16] MEDS: metOLazone 2.5 MG TAB PO SCH (10:17)
--- NOTE | 2017-06-16 14:17 | CP.PCM.PN ---
Subjective - Date & Time of Evaluation Date of Evaluation: 06/16/17 Time of Evaluation: 11:30 - Subjective Subjective: F/U PNA/Respiratory distress. Pt awake, no A/D, less cough, no SOB. Objective - Vital Signs/Intake and Output Vital Signs (last 24 hours): Temp Pulse Resp BP Pulse Ox 97.6 F 69 18 158/81 H 97 06/16/17 12:19 06/16/17 12:19 06/16/17 12:19 06/16/17 12:19 06/16/17 12:19 - Medications Medications: Current Medications Acetaminophen (Tylenol 325mg Tab) 650 mg PO Q4 PRN PRN Reason: Fever >100.4 F, headache Last Admin: 06/12/17 23:05 Dose: 650 mg Albuterol/Ipratropium (Duoneb 3 Mg/0.5 Mg (3 Ml) Ud) 3 ml INH RQ4 [facility] Last Admin: 06/16/17 10:59 Dose: 3 ml Albuterol/Ipratropium (Duoneb 3 Mg/0.5 Mg (3 Ml) Ud) 3 ml IH Q6H PRN PRN Reason: Shortness of Breath Benzonatate (Tessalon Perles) 100 mg PO TID PRN PRN Reason: Cough Digoxin (Lanoxin) 0.125 mg PO DAILY [facility] Last Admin: 06/16/17 10:14 Dose: 0.125 mg Ferrous Sulfate (Feosol) 325 mg PO DAILY [facility] Last Admin: 06/16/17 10:11 Dose: 325 mg Furosemide (Lasix) 40 mg IVP DAILY [facility] Last Admin: 06/16/17 10:21 Dose: 40 mg Gabapentin (Neurontin) 300 mg PO HS [facility] Last Admin: 06/15/17 21:04 Dose: 300 mg Vancomycin HCl 500 mg/ Sodium (Chloride) 100 mls @ 100 mls/hr IVPB Q12@0900, 2100 [facility] PRN Reason: Protocol Last Admin: 06/16/17 11:33 Dose: 100 mls/hr Piperacillin Sod/Tazobactam (Sod 3.375 gm/ Sodium Chloride) 100 mls @ 100 mls/ hr IVPB Q6 [facility] PRN Reason: Protocol Last Admin: 06/16/17 04:42 Dose: 100 mls/hr Clindamycin Phosphate 600 mg/ (Sodium Chloride) 104 mls @ 104 mls/hr IVPB Q12 [facility] PRN Reason: Protocol Last Admin: 06/16/17 10:08 Dose: 104 mls/hr Insulin Human Lispro (Humalog) 0 units SC ACHS [facility] PRN Reason: Protocol Last Admin: 06/16/17 11:39 Dose: 2 u Methylprednisolone (Solu-Medrol) 60 mg IVP Q8 [facility] Last Admin: 06/16/17 11:25 Dose: 60 mg Metolazone (Zaroxolyn) 2.5 mg PO DAILY [facility] Last Admin: 06/16/17 10:17 Dose: 2.5 mg Pantoprazole Sodium (Protonix Ec Tab) 40 mg PO DAILY [facility] Last Admin: 06/16/17 10:16 Dose: 40 mg Rivaroxaban (Xarelto) 15 mg PO DAILY [facility] PRN Reason: Protocol Last Admin: 06/16/17 10:17 Dose: 15 mg Tobramycin Sulfate (Tobrex 0.3% Ophth Soln) 1 drop OU TID [facility] Last Admin: 06/16/17 10:16 Dose: 1 drop Valsartan (Diovan) 160 mg PO DAILY [facility] Last Admin: 06/16/17 10:11 Dose: 160 mg - Labs Labs: 06/15/17 04:30 06/15/17 04:30 PT 24.4 Seconds (9.8-13.1) H 06/11/17 16:54 INR 2.1 (0.9-1.2) H 06/11/17 16:54 APTT 33.8 Seconds (25.6-37.1) 06/11/17 16:54 - Constitutional Appears: Chronically Ill - Head Exam Head Exam: NORMAL INSPECTION - Eye Exam Eye Exam: PERRL - ENT Exam ENT Exam: Normal Exam - Neck Exam Neck Exam: Normal Inspection - Respiratory Exam Respiratory Exam: Rhonchi (b/l) - Cardiovascular Exam Cardiovascular Exam: REGULAR RHYTHM, Murmur (SM 3/6 LSB [place] radiated to Axilla) - GI/Abdominal Exam GI & Abdominal Exam: Soft, Normal Bowel Sounds - Extremities Exam Extremities Exam: Normal Inspection - Back Exam Back Exam: NORMAL INSPECTION - Neurological Exam Neurological Exam: Alert Additional comments: Forgetful, no focal motor deficit, generalized weakness. - Psychiatric Exam Psychiatric exam: Normal Mood - Skin Skin Exam: Warm Assessment and Plan (1) Respiratory distress Status: Acute (2) HCAP (healthcare-associated pneumonia) Status: Acute (3) COPD exacerbation Status: Acute - Assessment and Plan (Free Text) Plan: Continue current abx coverage and rest of Tx.
--- NOTE | 2017-06-16 15:16 | CP.PCM.PN ---
Subjective - Date & Time of Evaluation Date of Evaluation: 06/16/17 Time of Evaluation: 15:14 - Subjective Subjective: patient is less distress Noted new right upper lobe infiltrate on CT scan 3 days ago Has no fever now Still with cough and mild SOB and some labored breathing. Objective - Vital Signs/Intake and Output Vital Signs (last 24 hours): Temp Pulse Resp BP Pulse Ox 97.6 F 69 18 158/81 H 97 06/16/17 12:19 06/16/17 12:19 06/16/17 12:19 06/16/17 12:19 06/16/17 12:19 - Medications Medications: Current Medications Acetaminophen (Tylenol 325mg Tab) 650 mg PO Q4 PRN PRN Reason: Fever >100.4 F, headache Last Admin: 06/12/17 23:05 Dose: 650 mg Albuterol/Ipratropium (Duoneb 3 Mg/0.5 Mg (3 Ml) Ud) 3 ml INH RQ4 [facility] Last Admin: 06/16/17 15:05 Dose: 3 ml Albuterol/Ipratropium (Duoneb 3 Mg/0.5 Mg (3 Ml) Ud) 3 ml IH Q6H PRN PRN Reason: Shortness of Breath Benzonatate (Tessalon Perles) 100 mg PO TID PRN PRN Reason: Cough Digoxin (Lanoxin) 0.125 mg PO DAILY [facility] Last Admin: 06/16/17 10:14 Dose: 0.125 mg Ferrous Sulfate (Feosol) 325 mg PO DAILY [facility] Last Admin: 06/16/17 10:11 Dose: 325 mg Furosemide (Lasix) 40 mg IVP DAILY [facility] Last Admin: 06/16/17 10:21 Dose: 40 mg Gabapentin (Neurontin) 300 mg PO HS [facility] Last Admin: 06/15/17 21:04 Dose: 300 mg Vancomycin HCl 500 mg/ Sodium (Chloride) 100 mls @ 100 mls/hr IVPB Q12@0900, 2100 [facility] PRN Reason: Protocol Last Admin: 06/16/17 11:33 Dose: 100 mls/hr Piperacillin Sod/Tazobactam (Sod 3.375 gm/ Sodium Chloride) 100 mls @ 100 mls/ hr IVPB Q6 [facility] PRN Reason: Protocol Last Admin: 06/16/17 14:42 Dose: 100 mls/hr Clindamycin Phosphate 600 mg/ (Sodium Chloride) 104 mls @ 104 mls/hr IVPB Q12 [facility] PRN Reason: Protocol Last Admin: 06/16/17 10:08 Dose: 104 mls/hr Insulin Human Lispro (Humalog) 0 units SC ACHS [facility] PRN Reason: Protocol Last Admin: 06/16/17 11:39 Dose: 2 u Methylprednisolone (Solu-Medrol) 60 mg IVP Q8 [facility] Last Admin: 06/16/17 11:25 Dose: 60 mg Metolazone (Zaroxolyn) 2.5 mg PO DAILY [facility] Last Admin: 06/16/17 10:17 Dose: 2.5 mg Pantoprazole Sodium (Protonix Ec Tab) 40 mg PO DAILY [facility] Last Admin: 06/16/17 10:16 Dose: 40 mg Rivaroxaban (Xarelto) 15 mg PO DAILY [facility] PRN Reason: Protocol Last Admin: 06/16/17 10:17 Dose: 15 mg Tobramycin Sulfate (Tobrex 0.3% Ophth Soln) 1 drop OU TID [facility] Last Admin: 06/16/17 14:42 Dose: 1 drop Valsartan (Diovan) 160 mg PO DAILY [facility] Last Admin: 06/16/17 10:11 Dose: 160 mg - Labs Labs: 06/15/17 04:30 06/15/17 04:30 PT 24.4 Seconds (9.8-13.1) H 06/11/17 16:54 INR 2.1 (0.9-1.2) H 06/11/17 16:54 APTT 33.8 Seconds (25.6-37.1) 06/11/17 16:54 - Head Exam Head Exam: NORMAL INSPECTION - Eye Exam Eye Exam: Normal appearance - ENT Exam ENT Exam: Mucous Membranes Moist - Respiratory Exam Respiratory Exam: Decreased Breath Sounds, Rhonchi, Wheezes - Cardiovascular Exam Cardiovascular Exam: Irregular Rhythm - GI/Abdominal Exam GI & Abdominal Exam: Normal Bowel Sounds Assessment and Plan (1) HCAP (healthcare-associated pneumonia) Status: Acute (2) CHF (congestive heart failure) Status: Acute (3) Acute on chronic heart failure Status: Acute (4) Anemia Status: Acute (5) Benign essential HTN Status: Acute - Assessment and Plan (Free Text) Plan: Cont meds cont tx neb tx cont iv antibiotics.
[2017-06-16 16:22] VITALS: O2SAT 100
[2017-06-17] MEDS: Piperacillin/Tazobact 3.375 GM in Sodium Chloride 0.9% 100 ML IVPB SCH ×4 (03:33→20:23)
[2017-06-17] MEDS: Albuterol-Ipratrop 3 mg / 0.5 (3 ml) UD INH SCH ×5 (04:58→19:29)
[2017-06-17 07:02] LABS: BASO % 0.1 % (0.0-2.0); HEMATOCRIT 29.6 % (34.0-47.0); LYMPH # 0.5 K/uL (1.0-4.3); LYMPH % 4.9 % (20.0-40.0); MEAN CELL VOLUME 92.6 fl (81.0-99.0); MEAN CORPUSCULAR HEMOGLOBIN 29.6 pg (27.0-31.0); MEAN CORPUSCULAR HGB CONC 31.9 g/dL (33.0-37.0); MEAN PLATELET VOLUME 10.6 fl (7.2-11.7); MONO # 0.2 K/uL (0.0-0.8); NEUT # 9.3 K/uL (1.8-7.0); PLATELET COUNT 256 K/uL (130-400); RED CELL DISTRIBUTION WIDTH 17.9 % (11.5-14.5)
[2017-06-17 07:24] LABS: ALB/GLOB RATIO 1.4 (1.0-2.1); BILIRUBIN,TOTAL 0.7 mg/dl (0.2-1.3); CALCIUM 8.6 mg/dL (8.4-10.2); POTASSIUM 3.3 MMOL/L (3.6-5.0); TOTAL PROTEIN 5.5 G/DL (6.3-8.2)
[2017-06-17 08:49] LABS: NEUTROPHIL 91 % (42-75); TOTAL CELLS COUNTED 100
[2017-06-17] MEDS: Clindamycin 600 MG in Sodium Chloride 0.9% 100 ML IVPB SCH ×2 (09:35→22:24)
[2017-06-17] MEDS: Insulin Lispro (humaLOG) 100 Units/ml Inj SC SCH ×4 (09:41→22:26)
[2017-06-17] MEDS: Digoxin 125 mcg (0.125 mg) Tab PO SCH (09:44)
[2017-06-17] MEDS: Pantoprazole 40 mg EC Tab PO SCH (09:47)
[2017-06-17] MEDS: Tobramycin 0.3% OPHT SOLN OU SCH ×3 (09:50→17:56)
[2017-06-17] MEDS: metOLazone 2.5 MG TAB PO SCH (09:51)
--- NOTE | 2017-06-17 10:03 | US ---
PROCEDURE: Bilateral lower extremity venous duplex Doppler. HISTORY: leg edema COMPARISON: None available. TECHNIQUE: Bilateral common femoral, superficial femoral, popliteal and posterior tibial veins were evaluated. Flow was assessed with color Doppler, compressibility, assessment of phasic flow and augmentation response. FINDINGS: COMMON FEMORAL VEIN: Right CFV: Unremarkable. Left CFV: Unremarkable. SUPERFICIAL FEMORAL VEIN: Right SFV: Unremarkable. Left SFV: Unremarkable. POPLITEAL VEIN: Right Popliteal: Unremarkable. Left Popliteal: Unremarkable. POSTERIOR TIBIAL VEIN: Right PTV: Unremarkable. Left PTV: Unremarkable. OTHER FINDINGS: None. IMPRESSION: No evidence of deep venous thrombosis.
--- NOTE | 2017-06-17 14:56 | CP.PCM.PN ---
Subjective - Date & Time of Evaluation Date of Evaluation: 06/17/17 Time of Evaluation: 13:00 - Subjective Subjective: F/U Respiratory Distress. Pt awake, smiling answering questions, no A/D. Objective - Vital Signs/Intake and Output Vital Signs (last 24 hours): Temp Pulse Resp BP Pulse Ox 98.0 F 72 18 121/59 L 100 06/17/17 12:00 06/17/17 12:00 06/17/17 12:00 06/17/17 12:00 06/17/17 12:00 Intake and Output: 06/17/17 06/17/17 06:59 18:59 Intake Total 1280 Output Total 600 Balance 680 - Medications Medications: Current Medications Acetaminophen (Tylenol 325mg Tab) 650 mg PO Q4 PRN PRN Reason: Fever >100.4 F, headache Last Admin: 06/12/17 23:05 Dose: 650 mg Albuterol/Ipratropium (Duoneb 3 Mg/0.5 Mg (3 Ml) Ud) 3 ml INH RQ4 [facility] Last Admin: 06/17/17 11:11 Dose: Not Given Albuterol/Ipratropium (Duoneb 3 Mg/0.5 Mg (3 Ml) Ud) 3 ml IH Q6H PRN PRN Reason: Shortness of Breath Benzonatate (Tessalon Perles) 100 mg PO TID PRN PRN Reason: Cough Digoxin (Lanoxin) 0.125 mg PO DAILY [facility] Last Admin: 06/17/17 09:44 Dose: 0.125 mg Ferrous Sulfate (Feosol) 325 mg PO DAILY [facility] Last Admin: 06/17/17 09:43 Dose: 325 mg Furosemide (Lasix) 40 mg IVP DAILY [facility] Last Admin: 06/17/17 09:45 Dose: 40 mg Gabapentin (Neurontin) 300 mg PO HS [facility] Last Admin: 06/16/17 21:34 Dose: 300 mg Vancomycin HCl 500 mg/ Sodium (Chloride) 100 mls @ 100 mls/hr IVPB Q12@0900, 2100 [facility] PRN Reason: Protocol Last Admin: 06/17/17 10:32 Dose: 100 mls/hr Piperacillin Sod/Tazobactam (Sod 3.375 gm/ Sodium Chloride) 100 mls @ 100 mls/ hr IVPB Q6 [facility] PRN Reason: Protocol Last Admin: 06/17/17 11:31 Dose: 100 mls/hr Clindamycin Phosphate 600 mg/ (Sodium Chloride) 104 mls @ 104 mls/hr IVPB Q12 [facility] PRN Reason: Protocol Last Admin: 06/17/17 09:35 Dose: 104 mls/hr Insulin Human Lispro (Humalog) 0 units SC ACHS [facility] PRN Reason: Protocol Last Admin: 06/17/17 13:27 Dose: 2 u Methylprednisolone (Solu-Medrol) 60 mg IVP Q8 [facility] Last Admin: 06/17/17 09:48 Dose: 60 mg Metolazone (Zaroxolyn) 2.5 mg PO DAILY [facility] Last Admin: 06/17/17 09:51 Dose: 2.5 mg Pantoprazole Sodium (Protonix Ec Tab) 40 mg PO DAILY [facility] Last Admin: 06/17/17 09:47 Dose: 40 mg Rivaroxaban (Xarelto) 15 mg PO DAILY [facility] PRN Reason: Protocol Last Admin: 06/17/17 09:50 Dose: 15 mg Tobramycin Sulfate (Tobrex 0.3% Ophth Soln) 1 drop OU TID [facility] Last Admin: 06/17/17 13:29 Dose: 1 drop Valsartan (Diovan) 160 mg PO DAILY [facility] Last Admin: 06/17/17 09:40 Dose: 160 mg - Labs Labs: 06/17/17 06:00 06/17/17 06:00 PT 24.4 Seconds (9.8-13.1) H 06/11/17 16:54 INR 2.1 (0.9-1.2) H 06/11/17 16:54 APTT 33.8 Seconds (25.6-37.1) 06/11/17 16:54 - Constitutional Appears: No Acute Distress, Chronically Ill - Head Exam Head Exam: NORMAL INSPECTION - Eye Exam Eye Exam: PERRL - ENT Exam ENT Exam: Normal Exam - Neck Exam Neck Exam: Normal Inspection - Respiratory Exam Respiratory Exam: Rhonchi (b/l) - Cardiovascular Exam Cardiovascular Exam: REGULAR RHYTHM, Murmur (systolic 3/6 LSB -[place] to [place]) Additional comments: Sternotomy scar. L pacemaker. - GI/Abdominal Exam GI & Abdominal Exam: Soft, Normal Bowel Sounds - Extremities Exam Extremities Exam: Normal Inspection - Back Exam Back Exam: NORMAL INSPECTION - Neurological Exam Neurological Exam: Alert Additional comments: O x2, generalized weakness. - Psychiatric Exam Psychiatric exam: Normal Mood - Skin Skin Exam: Warm Assessment and Plan (1) Respiratory distress Status: Acute (2) HCAP (healthcare-associated pneumonia) Status: Acute (3) COPD exacerbation Status: Acute - Assessment and Plan (Free Text) Plan: Continue Duoneb, Zosyn, Vanco, Slumedrol.
--- NOTE | 2017-06-17 23:09 | CP.PCM.PN ---
Subjective - Date & Time of Evaluation Date of Evaluation: 06/17/17 Time of Evaluation: 14:00 - Subjective Subjective: Patient still has episodes of SOB Has no fever Labs have improved. WBC is 10. Hgb 9.5 Objective - Vital Signs/Intake and Output Vital Signs (last 24 hours): Temp Pulse Resp BP Pulse Ox 98.2 F 67 18 130/72 100 06/17/17 21:10 06/17/17 21:10 06/17/17 21:10 06/17/17 21:10 06/17/17 21:10 Intake and Output: 06/17/17 06/18/17 18:59 06:59 Intake Total 1600 Output Total 1403 Balance 197 - Medications Medications: Current Medications Acetaminophen (Tylenol 325mg Tab) 650 mg PO Q4 PRN PRN Reason: Fever >100.4 F, headache Last Admin: 06/12/17 23:05 Dose: 650 mg Albuterol/Ipratropium (Duoneb 3 Mg/0.5 Mg (3 Ml) Ud) 3 ml INH RQ4 [facility] Last Admin: 06/17/17 19:29 Dose: 3 ml Albuterol/Ipratropium (Duoneb 3 Mg/0.5 Mg (3 Ml) Ud) 3 ml IH Q6H PRN PRN Reason: Shortness of Breath Benzonatate (Tessalon Perles) 100 mg PO TID PRN PRN Reason: Cough Digoxin (Lanoxin) 0.125 mg PO DAILY [facility] Last Admin: 06/17/17 09:44 Dose: 0.125 mg Ferrous Sulfate (Feosol) 325 mg PO DAILY [facility] Last Admin: 06/17/17 09:43 Dose: 325 mg Furosemide (Lasix) 40 mg IVP DAILY [facility] Last Admin: 06/17/17 09:45 Dose: 40 mg Gabapentin (Neurontin) 300 mg PO HS [facility] Last Admin: 06/17/17 22:32 Dose: 300 mg Vancomycin HCl 500 mg/ Sodium (Chloride) 100 mls @ 100 mls/hr IVPB Q12@0900, 2100 [facility] PRN Reason: Protocol Last Admin: 06/17/17 22:23 Dose: 100 mls/hr Piperacillin Sod/Tazobactam (Sod 3.375 gm/ Sodium Chloride) 100 mls @ 100 mls/ hr IVPB Q6 [facility] PRN Reason: Protocol Last Admin: 06/17/17 20:23 Dose: 100 mls/hr Clindamycin Phosphate 600 mg/ (Sodium Chloride) 104 mls @ 104 mls/hr IVPB Q12 [facility] PRN Reason: Protocol Last Admin: 06/17/17 22:24 Dose: 104 mls/hr Insulin Human Lispro (Humalog) 0 units SC ACHS [facility] PRN Reason: Protocol Last Admin: 06/17/17 22:26 Dose: Not Given Methylprednisolone (Solu-Medrol) 60 mg IVP Q8 [facility] Last Admin: 06/17/17 17:55 Dose: 60 mg Metolazone (Zaroxolyn) 2.5 mg PO DAILY [facility] Last Admin: 06/17/17 09:51 Dose: 2.5 mg Pantoprazole Sodium (Protonix Ec Tab) 40 mg PO DAILY [facility] Last Admin: 06/17/17 09:47 Dose: 40 mg Rivaroxaban (Xarelto) 15 mg PO DAILY [facility] PRN Reason: Protocol Last Admin: 06/17/17 09:50 Dose: 15 mg Tobramycin Sulfate (Tobrex 0.3% Ophth Soln) 1 drop OU TID [facility] Last Admin: 06/17/17 17:56 Dose: 1 drop Valsartan (Diovan) 160 mg PO DAILY [facility] Last Admin: 06/17/17 09:40 Dose: 160 mg - Labs Labs: 06/17/17 06:00 06/17/17 06:00 PT 24.4 Seconds (9.8-13.1) H 06/11/17 16:54 INR 2.1 (0.9-1.2) H 06/11/17 16:54 APTT 33.8 Seconds (25.6-37.1) 06/11/17 16:54 - Head Exam Head Exam: NORMAL INSPECTION - Eye Exam Eye Exam: Normal appearance - Respiratory Exam Respiratory Exam: Rales, Rhonchi - Cardiovascular Exam Cardiovascular Exam: Irregular Rhythm - GI/Abdominal Exam GI & Abdominal Exam: Normal Bowel Sounds - Neurological Exam Neurological Exam: Awake, Oriented x3 Assessment and Plan (1) HCAP (healthcare-associated pneumonia) Status: Acute (2) CHF (congestive heart failure) Status: Acute (3) Acute on chronic heart failure Status: Acute (4) Anemia Status: Acute (5) Benign essential HTN Status: Acute - Assessment and Plan (Free Text) Plan: will repeat cbccmp chest xray in am cont PT subacute rehab TCU eval
[2017-06-18] MEDS: Albuterol-Ipratrop 3 mg / 0.5 (3 ml) UD INH SCH ×5 (00:49→15:06)
[2017-06-18] MEDS: Piperacillin/Tazobact 3.375 GM in Sodium Chloride 0.9% 100 ML IVPB SCH ×2 (04:15→09:21)
[2017-06-18] MEDS: Insulin Lispro (humaLOG) 100 Units/ml Inj SC SCH (07:30)
--- NOTE | 2017-06-18 08:09 | RAD ---
HISTORY: pneumonia COMPARISON: Portable chest 06/11/2017. FINDINGS: Pacemaker, sternotomy wires and prosthetic cardiac valve are again identified. LUNGS: Limited patchy airspace disease in the right base with none on the left. PLEURA: Small bilateral pleural effusions again but the bilateral costophrenic sulci there are not significant changed. No pneumothorax. CARDIOVASCULAR: Cardiomegaly is stable. Borderline pulmonary venous congestion. OSSEOUS STRUCTURES: No significant abnormalities. VISUALIZED UPPER ABDOMEN: Normal. OTHER FINDINGS: None. IMPRESSION: Generally stable appearing chest radiography with only marginal patchy airspace disease in the right base and stable appearing bilateral minimal pleural effusions. Borderline pulmonary venous congestion.
[2017-06-18] MEDS: Clindamycin 600 MG in Sodium Chloride 0.9% 100 ML IVPB SCH (09:20)
[2017-06-18] MEDS: Digoxin 125 mcg (0.125 mg) Tab PO SCH (09:26)
[2017-06-18] MEDS: Pantoprazole 40 mg EC Tab PO SCH (09:26)
[2017-06-18] MEDS: Tobramycin 0.3% OPHT SOLN OU SCH ×2 (09:27→15:57)
[2017-06-18] MEDS: metOLazone 2.5 MG TAB PO SCH (09:27)
[2017-06-18 09:28] VITALS: PULSE 70
[2017-06-18 10:04] VITALS: RESP 20
--- NOTE | 2017-06-18 14:24 | CP.PCM.PN ---
Subjective - Date & Time of Evaluation Date of Evaluation: 06/18/17 Time of Evaluation: 12:20 - Subjective Subjective: F/U Respiratory Distress. Pt awake, alert, no A/D, no SOB. Objective - Vital Signs/Intake and Output Vital Signs (last 24 hours): Temp Pulse Resp BP Pulse Ox 97.8 F 67 20 141/82 100 06/18/17 12:44 06/18/17 12:44 06/18/17 12:44 06/18/17 12:44 06/18/17 12:44 Intake and Output: 06/18/17 06/18/17 06:59 18:59 Intake Total 544 640 Output Total 200 550 Balance 344 90 - Medications Medications: Current Medications Acetaminophen (Tylenol 325mg Tab) 650 mg PO Q4 PRN PRN Reason: Fever >100.4 F, headache Last Admin: 06/12/17 23:05 Dose: 650 mg Albuterol/Ipratropium (Duoneb 3 Mg/0.5 Mg (3 Ml) Ud) 3 ml INH RQ4 [facility] Last Admin: 06/18/17 11:17 Dose: Not Given Albuterol/Ipratropium (Duoneb 3 Mg/0.5 Mg (3 Ml) Ud) 3 ml IH Q6H PRN PRN Reason: Shortness of Breath Benzonatate (Tessalon Perles) 100 mg PO TID PRN PRN Reason: Cough Digoxin (Lanoxin) 0.125 mg PO DAILY [facility] Last Admin: 06/18/17 09:26 Dose: 0.125 mg Ferrous Sulfate (Feosol) 325 mg PO DAILY [facility] Last Admin: 06/18/17 09:25 Dose: 325 mg Furosemide (Lasix) 40 mg IVP DAILY [facility] Last Admin: 06/18/17 09:26 Dose: 40 mg Gabapentin (Neurontin) 300 mg PO HS [facility] Last Admin: 06/17/17 22:32 Dose: 300 mg Vancomycin HCl 500 mg/ Sodium (Chloride) 100 mls @ 100 mls/hr IVPB Q12@0900, 2100 [facility] PRN Reason: Protocol Last Admin: 06/18/17 09:22 Dose: 100 mls/hr Piperacillin Sod/Tazobactam (Sod 3.375 gm/ Sodium Chloride) 100 mls @ 100 mls/ hr IVPB Q6 [facility] PRN Reason: Protocol Last Admin: 06/18/17 09:21 Dose: 100 mls/hr Clindamycin Phosphate 600 mg/ (Sodium Chloride) 104 mls @ 104 mls/hr IVPB Q12 [facility] PRN Reason: Protocol Last Admin: 06/18/17 09:20 Dose: 104 mls/hr Insulin Human Lispro (Humalog) 0 units SC ACHS [facility] PRN Reason: Protocol Last Admin: 06/18/17 07:30 Dose: Not Given Methylprednisolone (Solu-Medrol) 60 mg IVP Q8 [facility] Last Admin: 06/18/17 09:24 Dose: 60 mg Metolazone (Zaroxolyn) 2.5 mg PO DAILY [facility] Last Admin: 06/18/17 09:27 Dose: 2.5 mg Pantoprazole Sodium (Protonix Ec Tab) 40 mg PO DAILY [facility] Last Admin: 06/18/17 09:26 Dose: 40 mg Rivaroxaban (Xarelto) 15 mg PO DAILY [facility] PRN Reason: Protocol Last Admin: 06/18/17 09:27 Dose: 15 mg Tobramycin Sulfate (Tobrex 0.3% Ophth Soln) 1 drop OU TID [facility] Last Admin: 06/18/17 09:27 Dose: 1 drop Valsartan (Diovan) 160 mg PO DAILY [facility] Last Admin: 06/18/17 09:25 Dose: 160 mg - Labs Labs: 06/17/17 06:00 06/17/17 06:00 PT 24.4 Seconds (9.8-13.1) H 06/11/17 16:54 INR 2.1 (0.9-1.2) H 06/11/17 16:54 APTT 33.8 Seconds (25.6-37.1) 06/11/17 16:54 - Constitutional Appears: No Acute Distress, Chronically Ill - Head Exam Head Exam: NORMAL INSPECTION - Eye Exam Eye Exam: PERRL - ENT Exam ENT Exam: Normal Exam - Neck Exam Neck Exam: Normal Inspection - Respiratory Exam Respiratory Exam: Rhonchi (few scattered) - Cardiovascular Exam Cardiovascular Exam: REGULAR RHYTHM, Murmur (systolic 3/6 LSB [place] radiated to axilla ) Additional comments: Sternotomy Scar. L pacemaker. - GI/Abdominal Exam GI & Abdominal Exam: Soft, Normal Bowel Sounds - Extremities Exam Extremities Exam: Normal Inspection - Back Exam Back Exam: NORMAL INSPECTION - Neurological Exam Neurological Exam: Awake Additional comments: Ox2, Generalized weakness. - Psychiatric Exam Psychiatric exam: Normal Mood - Skin Skin Exam: Warm Assessment and Plan (1) Respiratory distress Status: Acute (2) Severe sepsis Status: Acute (3) COPD exacerbation Status: Acute
[2017-06-18 16:24] VITALS: BP 148/74; PULSE 65; TEMP 97.5
== END 2017-06-18 17:50 | DRG 871 ==
LOC: H.ER 15:56 → H.ERHOLD 19:40 → H.ICU/CCU 06-12 02:56 → H.TEL 06-13 13:17
PROVIDERS: ADMIT Family Medicine; ATTEND Family Medicine
DX: A41.9 Sepsis, unspecified organism (principal); J18.9 Pneumonia, unspecified organism; I50.33 Acute on chronic diastolic (congestive) heart failure; J44.0 Chronic obstructive pulmonary disease with (acute) lower respiratory infection; G20 Parkinson's disease; F03.90 Unspecified dementia, unspecified severity, without behavioral disturbance, psychotic disturbance, mood disturbance, and anxiety; I11.0 Hypertensive heart disease with heart failure; D64.9 Anemia, unspecified; E11.9 Type 2 diabetes mellitus without complications; J44.1 Chronic obstructive pulmonary disease with (acute) exacerbation; I48.2 Chronic atrial fibrillation; I27.20 Pulmonary hypertension, unspecified; R65.20 Severe sepsis without septic shock; Y95 Nosocomial condition; I25.10 Atherosclerotic heart disease of native coronary artery without angina pectoris; I07.1 Rheumatic tricuspid insufficiency; G44.209 Tension-type headache, unspecified, not intractable; E78.5 Hyperlipidemia, unspecified; I73.9 Peripheral vascular disease, unspecified; M19.90 Unspecified osteoarthritis, unspecified site; Z79.01 Long term (current) use of anticoagulants; Z86.73 Personal history of transient ischemic attack (TIA), and cerebral infarction without residual deficits; Z87.01 Personal history of pneumonia (recurrent); Z95.0 Presence of cardiac pacemaker; Z95.1 Presence of aortocoronary bypass graft; Z95.5 Presence of coronary angioplasty implant and graft

== ENCOUNTER 2017-06-20 22:26 | Inpatient (IN) | payer MEDICARE, OTHER ==
[2017-06-20 22:26] VITALS: BMI 20.2
--- NOTE | 2017-06-20 23:18 | ED PDOC ---
HPI: General Adult Time Seen by Provider: 06/20/17 22:43 Chief Complaint (Nursing): Abnormal Labs Chief Complaint (Provider): abnormal labs History Per: Other ([facility]) Additional Complaint(s): Pt sent to ER for further evaluation of abnormal labs Pt has no complaints except feeling tired. May be limited due to h/o dementia PMD Dr Lawrence Past Medical History Reviewed: Historical Data, Nursing Documentation, Vital Signs Vital Signs: Last Vital Signs Temp 99.9 F H 06/22/17 12:29 Pulse 105 H 06/22/17 12:29 Resp 18 06/22/17 12:29 BP 99/62 L 06/22/17 12:29 Pulse Ox 90 L 06/22/17 12:29 - Medical History PMH: Anemia, Arthritis, Asthma, Atrial Fibrillation, Bronchitis, CAD, Cardia Arrhythmia, CHF, COPD, CVA (recurrent), Dementia, Diabetes (type II), HTN, Hypercholesterolemia, Hyperlipidemia, Parkinson's Disease, Peripheral Edema, Pneumonia, TIA Denies: HIV, Hypothyroidism, Chronic Kidney Disease, Rheumatoid Arthritis - Surgical History Surgical History: Appendectomy, CABG, Carotid Endarterectomy, Cholecystectomy, Pacemaker - Family History Family History: States: Unknown Family Hx - Living Arrangements Living Arrangements: Longterm/Assist Lvng - Immunization History Hx Tetanus Toxoid Vaccination: No Hx Influenza Vaccination: No Hx Pneumococcal Vaccination: No - Home Medications Home Medications: Ambulatory Orders Medication Instructions Recorded Ferrous Sulfate [Feosol] 325 mg PO DAILY 09/12/16 Linagliptin [Tradjenta] 5 mg PO DAILY 09/12/16 Gabapentin [Neurontin] 300 mg PO HS 12/15/16 Rivaroxaban [Xarelto] 15 mg PO DAILY 12/15/16 Albuterol/Ipratropium [Duoneb 3 3 ml IH Q6H PRN 02/16/17 mg/0.5 mg (3 ml) UD] Digoxin [Lanoxin] 0.125 mg PO DAILY 02/16/17 Valsartan [Diovan] 160 mg PO DAILY 02/16/17 metOLazone [Zaroxolyn] 2.5 mg PO DAILY 02/16/17 Furosemide [Lasix] 40 mg PO DAILY #30 tablet 05/24/17 Benzonatate [Tessalon Perle] 100 mg PO TID PRN 06/11/17 Tobramycin 0.3% [Tobrex 0.3% Ophth 1 drop OU TID 06/11/17 Soln] Acetaminophen [Tylenol 325mg tab] 650 mg PO Q4 PRN tab 06/18/17 Albuterol/Ipratropium [Duoneb 3 3 ml INH RQ4 neb 06/18/17 mg/0.5 mg (3 ml) UD] Amoxicillin/Clavulanate [Augmentin 1 tab PO Q12 #14 tab 06/18/17 875 MG-125 MG] Lactobacillus Acidophilus [Bacid 1 cap PO BID #20 cap 06/18/17 Acidophilus] Pantoprazole [Protonix EC Tab] 40 mg PO DAILY ect 06/18/17 predniSONE [Prednisone] 10 mg PO DAILY #120 tab 06/18/17 Clindamycin HCl [Cleocin HCl] 300 mg PO BID 06/21/17 Magnesium Hydroxide [Milk Of 30 ml PO DAILY PRN 06/21/17 Magnesia] Mv,Min10/Folic Acid/D3/Ala/Lut 1 tab PO DAILY 06/21/17 [Strovite One Caplet] Nitroglycerin [Nitrostat SL Tab] 0.4 mg SL Q5MIN PRN MDD no more 06/21/17 then 3 doses - Allergies Allergies/Adverse Reactions: Allergies Allergy/AdvReac Type Severity Reaction Status Date / Time oxycodone Allergy RASH Verified 06/20/17 22:31 Review of Systems ROS Statement: Except As Marked, All Systems Reviewed And Found Negative Constitutional: Positive for: Weakness (generalized), Malaise Physical Exam - Reviewed Nursing Documentation Reviewed: Yes Vital Signs Reviewed: Yes - Physical Exam Appears: Positive for: No Acute Distress (but tired appearing) Head Exam: Positive for: ATRAUMATIC, NORMOCEPHALIC Skin: Positive for: Warm, Dry Eye Exam: Positive for: EOMI, PERRL ENT: Negative for: Pharyngeal Erythema, Tonsillar Exudate Neck: Positive for: Painless ROM, Supple Cardiovascular/Chest: Positive for: Chest Non Tender, Edema, JVD, Murmur ( systolic) Respiratory: Positive for: Decreased Breath Sounds (at bases), Rhonchi ( scattered expiratory). Negative for: Accessory Muscle Use, Wheezing Gastrointestinal/Abdominal: Positive for: Soft. Negative for: Tenderness Back: Positive for: Normal Inspection. Negative for: Decreased ROM Extremity: Positive for: Pedal Edema. Negative for: Deformity Lymphatic: Negative for: Adenopathy Neurologic/Psych: Positive for: Alert, Motor/Sensory Deficits (LEFT hemiparesis) - Laboratory Results Result Diagrams: 06/22/17 09:55 06/22/17 09:55 Interpretation Of Abn Labs: PLEASE NOTE: ABOVE LABS ARE NOT THE LABS AT TIME OF ER EVALUATION. - ECG ECG Rhythm: Positive for: Venticular Paced O2 Sat by Pulse Oximetry: 91 Pulse Ox Interpretation: Abnormal (O2 nasal cannula applied, pt has COPD and at acceptable level of O2 for now.) - Radiology X-Ray: Interpreted by Me X-Ray Interpretation: Other (RIGHT sided opacification similar to previous, w effusion) - Progress ED Course And Treament: LEFT EJ placed under sterile conditions by MD (myself) with good blood return and infusion. Line placed due to inability RN to place line and need for IV medications. Persistent pneumonia with increased WBC and elevated troponin. Lactic acid also elevated but lower than previous. Will not aggressively hydrate for sepsis due to h/o pulmonary hypertension, Right sided heart failure. IV antibiotics ordered. Potassium supplement given for hypokalemia. - Physician Consult Information Physician Contacted: Jason Jean Outcome Of Conversation: Concerning elevated troponin, no intervention at this time. - Critical Care Total Time (In Min): 30 Documented Critical Care: Time excludes all time spent performint seperately billable procedures Disposition - Clinical Impression Clinical Impression: Elevated troponin, Pulmonary hypertension, Pneumonia - Disposition Disposition Time: 23:00 Condition: FAIR - Pt Status Changed To: Hospital Disposition Of: Inpatient - Admit Certification Admit to Inpatient:: After my assessment, the patient will require hospitalization for at least two midnights. This is because of the severity of symptoms shown, intensity of services needed, and/or the medical risk in this patient being treated as an outpatient. - POA Present On Arrival: Poor Glycemic Control
[2017-06-20 23:25] LABS: VENOUS BLOOD GAS BASE EXCESS 18.5 mmol/L (0.0-2.0); VENOUS BLOOD GAS PCO2 56 mmHg (40-60); VENOUS BLOOD PH 7.51 (7.32-7.43)
[2017-06-20 23:40] LABS: BASO # 0.1 K/uL (0.0-0.2); BASO % 0.4 % (0.0-2.0); HEMATOCRIT 31.6 % (34.0-47.0); LYMPH # 1.1 K/uL (1.0-4.3); LYMPH % 5.1 % (20.0-40.0); MEAN CELL VOLUME 92.5 fl (81.0-99.0); MEAN CORPUSCULAR HEMOGLOBIN 29.7 pg (27.0-31.0); MEAN CORPUSCULAR HGB CONC 32.1 g/dL (33.0-37.0); MEAN PLATELET VOLUME 11.5 fl (7.2-11.7); MONO # 0.8 K/uL (0.0-0.8); MONO % 3.9 % (0.0-10.0); NEUT # 18.7 K/uL (1.8-7.0); NEUT % 90.6 % (50.0-75.0); NRBC % 1.1 % (0.0-0.0); PLATELET COUNT 258 K/uL (130-400); RED CELL DISTRIBUTION WIDTH 18.8 % (11.5-14.5); WHITE BLOOD COUNT 20.7 K/uL (4.8-10.8)
[2017-06-20 23:46] LABS: ALB/GLOB RATIO 1.4 (1.0-2.1); ALKALINE PHOSPHATASE 83 U/L (38-126); ALT/SGPT 56 U/L (9-52); AST/SGOT 141 U/L (14-36); BILIRUBIN,TOTAL 1.8 mg/dl (0.2-1.3); BLOOD UREA NITROGEN 73 mg/dl (7-17); CALCIUM 9.5 mg/dL (8.4-10.2); CARBON DIOXIDE 38 mmol/L (22-30); CHLORIDE 95 mmol/L (98-107); GFR AFRICAN-AMERICAN > 60; GLUCOSE,RANDOM 223 mg/dL (65-105); MAGNESIUM 2.3 MG/DL (1.6-2.3); PHOSPHOROUS 3.4 mg/dl (2.5-4.5); SODIUM 141 mmol/l (132-148); TOTAL PROTEIN 6.4 G/DL (6.3-8.2)
[2017-06-20 23:59] LABS: POTASSIUM 4.3 MMOL/L (3.6-5.0)
[2017-06-21] MEDS ORDERED: Ampicillin/Sulbactam 3 GM in Sodium Chloride 0.9% 100 ML IVPB STA ×2 (00:20→03:53)
[2017-06-21] MEDS ORDERED: K-Lyte 25meq EF Tab PO ONE ×2 (00:33→00:50)
[2017-06-21] MEDS ORDERED: Potassium CL 10 MEQ/50 ML 50 ML IVPB ONE ×2 (00:33→04:00)
[2017-06-21 01:21] LABS: RBC URINE 16 /hpf (0-3); URINE BACTERIA RARE (<OCC); URINE BILIRUBIN NEGATIVE (NEGATIVE); URINE BLOOD MODERATE (NEGATIVE); URINE COLOR YELLOW (YELLOW); URINE GLUCOSE (UA) NEG (Normal); URINE KETONE NEGATIVE (NEGATIVE); URINE LEUKOCYTE ESTERASE LARGE Leu/uL (Negative); URINE PROTEIN 30 mg/dL (NEGATIVE); URINE UROBILINOGEN 0.2-1.0 mg/dL (0.2-1.0); WBC URINE 92 /hpf (0-5)
[2017-06-21 01:29] LABS: NEUTROPHIL 88 % (42-75); TOTAL CELLS COUNTED 100
[2017-06-21 01:30] LABS: ACANTHOCYTES SLIGHT
--- NOTE | 2017-06-21 07:28 | CARD ---
APPROVED REPORT EKG Measurement Heart [id number] <Conclusion> DDD Pacemaker with mostly Ventricular-paced rhythm Abnormal ECG
--- NOTE | 2017-06-21 08:48 | RAD ---
HISTORY: possible nstemi COMPARISON: 06/18/2017 FINDINGS: LUNGS: Superior right paramediastinal opacity persists. Possible artifact due to brachiocephalic vessels. No other abnormal opacity. PLEURA: Small right pleural effusion. Minimal fluid/ thickening in minor fissure. No left pleural effusion. No pneumothorax. CARDIOVASCULAR: Mild cardiomegaly. CABG. Permanent pacemaker. Mitral valve replacement. OSSEOUS STRUCTURES: No significant abnormalities. VISUALIZED UPPER ABDOMEN: Normal. OTHER FINDINGS: None. IMPRESSION: Persistent right superior paramediastinal opacity, questionable significance. Small right pleural effusion.
[2017-06-21 08:57] LABS: HEMATOCRIT 31.4 % (34.0-47.0); MEAN CELL VOLUME 93.4 fl (81.0-99.0); MEAN CORPUSCULAR HEMOGLOBIN 29.2 pg (27.0-31.0); MEAN CORPUSCULAR HGB CONC 31.2 g/dL (33.0-37.0); RED CELL DISTRIBUTION WIDTH 18.7 % (11.5-14.5); WHITE BLOOD COUNT 21.3 K/uL (4.8-10.8)
[2017-06-21] MEDS ORDERED: MethylPREDNISolone 40 mg Vial IVP SCH (09:00)
[2017-06-21] MEDS ORDERED: methylPREDNISolone 20 MG in Sodium Chloride 0.9% 50 ML IV SCH (09:00)
[2017-06-21 09:11] LABS: BLOOD UREA NITROGEN 63 mg/dl (7-17); CALCIUM 8.9 mg/dL (8.4-10.2); CHLORIDE 98 mmol/L (98-107); GFR AFRICAN-AMERICAN > 60; GLUCOSE,RANDOM 128 mg/dL (65-105); POTASSIUM 3.6 MMOL/L (3.6-5.0); SODIUM 145 mmol/l (132-148)
[2017-06-21] MEDS ORDERED: Magnesium Hydroxide Susp 30 ml UD PO PRN (09:19)
[2017-06-21] MEDS ORDERED: Albuterol-Ipratrop 3 mg / 0.5 (3 ml) UD IH PRN (09:19)
[2017-06-21 09:30] LABS: CARBON DIOXIDE 46 mmol/L (22-30)
[2017-06-21] MEDS ORDERED: Piperacill/Tazo 3.375gm in Dex 3.375 GM/50 ML BAG IVPB SCH (10:00)
[2017-06-21] MEDS: Pantoprazole 40 mg EC Tab PO SCH (10:35)
[2017-06-21] MEDS: MethylPREDNISolone 40 mg Vial IVP SCH ×4 (10:35→22:17)
[2017-06-21] MEDS: Digoxin 125 mcg (0.125 mg) Tab PO SCH (10:36)
[2017-06-21] MEDS: metOLazone 2.5 MG TAB PO SCH (10:36)
[2017-06-21] MEDS: Lactobacillus Acidophilus 500 MU Cap PO SCH ×2 (10:53→16:21)
[2017-06-21] MEDS: Albuterol-Ipratrop 3 mg / 0.5 (3 ml) UD INH SCH ×3 (11:16→19:50)
--- NOTE | 2017-06-21 11:20 | CP.PCM.HP ---
<Benedict Santana - Last Filed: 06/21/17 11:58> History of Present Illness - History of Present Illness History of Present Illness: 82 YO F w/ h/o of HTN, hypercholesterolemia, atrial fibrilation, bronchitis, CAD , Cardiac Arrhythmias, CHF, DM II was recently discharged to a long term and is being readmitted for abnormal labs and feeling weak. In the ER patient was noted to have troponin positive x2 w/ a pro BNP of 21,500. PMH: CHG, COPD, CVA/TIA, HLD, NIDDM Med: reviewed Allergy: NKDA Present on Admission - Present on Admission Any Indicators Present on Admission: Yes Past Patient History - Infectious Disease Hx of Infectious Diseases: None - Tetanus Immunizations Tetanus Immunization: Unknown - Past Medical History & Family History Past Medical History?: Yes - Past Social History Smoking Status: Never Smoked - CARDIAC Hx Cardiac Disorders: Yes Hx Atrial Fibrillation: Yes Hx Congestive Heart Failure: Yes Hx Hypertension: Yes Hx Pacemaker: Yes Hx Peripheral Edema: Yes - PULMONARY Hx Respiratory Disorders: Yes Hx Asthma: Yes Hx Pneumonia: Yes - NEUROLOGICAL Hx Neurological Disorder: Yes Hx Dementia: Yes Hx Parkinson's Disease: Yes Hx Transient Ischemic Attacks (TIA): Yes - HEENT Hx HEENT Problems: No - RENAL Hx Chronic Kidney Disease: No - ENDOCRINE/METABOLIC Hx Endocrine Disorders: Yes Hx Diabetes Mellitus Type 2: Yes - HEMATOLOGICAL/ONCOLOGICAL Hx Blood Disorders: Yes Hx AIDS: No Hx Anemia: Yes Hx Human Immunodeficiency Virus (HIV): No - INTEGUMENTARY Hx Dermatological Problems: No - MUSCULOSKELETAL/RHEUMATOLOGICAL Hx Musculoskeletal Disorders: Yes Hx Arthritis: Yes Hx Falls: Yes Hx Rheumatoid Arthritis: No - GASTROINTESTINAL Hx Gastrointestinal Disorders: No - GENITOURINARY/GYNECOLOGICAL Hx Genitourinary Disorders: Yes Hx Incontinence: Yes - PSYCHIATRIC Hx Psychophysiologic Disorder: No Hx Substance Use: No - SURGICAL HISTORY Hx Surgeries: Yes Hx Appendectomy: Yes Hx Carotid Endarterectomy: Yes Hx Cholecystectomy: Yes Hx Coronary Artery Bypass Graft: Yes - ANESTHESIA Hx Anesthesia: Yes Hx Anesthesia Reactions: No Hx Malignant Hyperthermia: No Meds Allergies/Adverse Reactions: Allergies Allergy/AdvReac Type Severity Reaction Status Date / Time oxycodone Allergy RASH Verified 06/20/17 22:31 Physical Exam - Constitutional Appears: No Acute Distress - Head Exam Head Exam: NORMAL INSPECTION - Eye Exam Eye Exam: Normal appearance - Respiratory Exam Respiratory Exam: Accessory Muscle Use, Rales, Rhonchi - Cardiovascular Exam Cardiovascular Exam: REGULAR RHYTHM, JVD, Systolic Murmur - GI/Abdominal Exam GI & Abdominal Exam: Normal Bowel Sounds, Soft. absent: Tenderness - Extremities Exam Extremities exam: Positive for: pedal edema Results - Vital Signs Recent Vital Signs: Last Vital Signs Temp 97.4 F L 06/21/17 08:59 Pulse 67 06/21/17 11:16 Resp 20 06/21/17 08:59 BP 151/84 H 06/21/17 10:38 Pulse Ox 97 06/21/17 08:59 - Labs Result Diagrams: 06/21/17 08:35 06/21/17 08:35 Labs: Laboratory Results - last 24 hr 06/20/17 06/20/17 06/20/17 22:50 23:10 23:20 WBC RBC Hgb Hct MCV MCH MCHC RDW Plt Count MPV Neut % (Auto) Lymph % (Auto) Deuel % (Auto) Eos % (Auto) Baso % (Auto) Neut # Lymph # Deuel # Eos # Baso # Neutrophils % (Manual) Band Neutrophils % Lymphocytes % (Manual) Monocytes % (Manual) Platelet Estimate Anisocytosis (manual) Ovalocytes Acanthocytes (Spur) pO2 70 H VBG pH 7.51 H VBG pCO2 56 VBG HCO3 39.3 VBG Total CO2 46.4 H VBG O2 Sat (Calc) 99.9 H VBG Base Excess 18.5 H VBG Potassium 4.4 Sodium 142.0 Chloride 99.0 Glucose 253 H Lactate 2.7 H FiO2 21.0 Potassium Carbon Dioxide Anion Gap BUN Creatinine Est GFR ( Amer) Est GFR (Non-Af Amer) POC Glucose (mg/dL) 255 H Random Glucose Serum Osmolality Calcium Phosphorus Magnesium Total Bilirubin AST ALT Alkaline Phosphatase Troponin I NT-Pro-B Natriuret Pep Total Protein Albumin Globulin Albumin/Globulin Ratio Venous Blood Potassium 4.4 Urine Color Urine Clarity Urine pH Ur Specific [place] Urine Protein Urine Glucose (UA) Urine Ketones Urine Blood Urine Nitrate Urine Bilirubin Urine Urobilinogen Ur Leukocyte Esterase Urine RBC (Auto) Urine Microscopic WBC Ur Squamous Epith Cells Urine Bacteria Hyaline Casts Urine Yeast (Budding) Digoxin Blood Type Cancelled Antibody Screen Cancelled BBK History Checked Cancelled 06/20/17 06/20/17 06/20/17 23:27 23:27 23:27 WBC 20.7 H D RBC 3.42 L Hgb 10.2 L Hct 31.6 L MCV 92.5 MCH 29.7 MCHC 32.1 L RDW 18.8 H Plt Count 258 MPV 11.5 Neut % (Auto) 90.6 H Lymph % (Auto) 5.1 L Deuel % (Auto) 3.9 Eos % (Auto) 0.0 Baso % (Auto) 0.4 Neut # 18.7 H Lymph # 1.1 Deuel # 0.8 Eos # 0.0 Baso # 0.1 Neutrophils % (Manual) 88 H Band Neutrophils % 2 Lymphocytes % (Manual) 6 L Monocytes % (Manual) 4 Platelet Estimate Normal Anisocytosis (manual) Slight Ovalocytes Slight Acanthocytes (Spur) Slight pO2 VBG pH VBG pCO2 VBG HCO3 VBG Total CO2 VBG O2 Sat (Calc) VBG Base Excess VBG Potassium Sodium 141 Chloride 95 L Glucose Lactate FiO2 Potassium 4.3 Carbon Dioxide 38 H Anion Gap 12 BUN 73 H Creatinine 0.8 Est GFR ( Amer) > 60 Est GFR (Non-Af Amer) > 60 POC Glucose (mg/dL) Random Glucose 223 H Serum Osmolality 327 H Calcium 9.5 Phosphorus 3.4 Magnesium 2.3 Total Bilirubin 1.8 H AST 141 H D ALT 56 H Alkaline Phosphatase 83 Troponin I 0.5600 H* NT-Pro-B Natriuret Pep 13203 H Total Protein 6.4 Albumin 3.7 Globulin 2.7 Albumin/Globulin Ratio 1.4 Venous Blood Potassium Urine Color Urine Clarity Urine pH Ur Specific [place] Urine Protein Urine Glucose (UA) Urine Ketones Urine Blood Urine Nitrate Urine Bilirubin Urine Urobilinogen Ur Leukocyte Esterase Urine RBC (Auto) Urine Microscopic WBC Ur Squamous Epith Cells Urine Bacteria Hyaline Casts Urine Yeast (Budding) Digoxin Blood Type Antibody Screen BBK History Checked 06/20/17 06/21/17 06/21/17 23:27 00:05 00:13 WBC RBC Hgb Hct MCV MCH MCHC RDW Plt Count MPV Neut % (Auto) Lymph % (Auto) Deuel % (Auto) Eos % (Auto) Baso % (Auto) Neut # Lymph # Deuel # Eos # Baso # Neutrophils % (Manual) Band Neutrophils % Lymphocytes % (Manual) Monocytes % (Manual) Platelet Estimate Anisocytosis (manual) Ovalocytes Acanthocytes (Spur) pO2 VBG pH VBG pCO2 VBG HCO3 VBG Total CO2 VBG O2 Sat (Calc) VBG Base Excess VBG Potassium Sodium Chloride Glucose Lactate FiO2 Potassium 2.9 L Carbon Dioxide Anion Gap BUN Creatinine Est GFR ( Amer) Est GFR (Non-Af Amer) POC Glucose (mg/dL) Random Glucose Serum Osmolality Calcium Phosphorus Magnesium Total Bilirubin AST ALT Alkaline Phosphatase Troponin I NT-Pro-B Natriuret Pep Total Protein Albumin Globulin Albumin/Globulin Ratio Venous Blood Potassium Urine Color Urine Clarity Urine pH Ur Specific [place] Urine Protein Urine Glucose (UA) Urine Ketones Urine Blood Urine Nitrate Urine Bilirubin Urine Urobilinogen Ur Leukocyte Esterase Urine RBC (Auto) Urine Microscopic WBC Ur Squamous Epith Cells Urine Bacteria Hyaline Casts Urine Yeast (Budding) Digoxin 1.2 Blood Type AB POSITIVE Antibody Screen Negative BBK History Checked Patient has bt 06/21/17 06/21/17 06/21/17 00:46 04:50 08:35 WBC 21.3 H RBC 3.36 L Hgb 9.8 L Hct 31.4 L MCV 93.4 MCH 29.2 MCHC 31.2 L RDW 18.7 H Plt Count 200 MPV Neut % (Auto) Lymph % (Auto) Deuel % (Auto) Eos % (Auto) Baso % (Auto) Neut # Lymph # Deuel # Eos # Baso # Neutrophils % (Manual) Band Neutrophils % Lymphocytes % (Manual) Monocytes % (Manual) Platelet Estimate Anisocytosis (manual) Ovalocytes Acanthocytes (Spur) pO2 VBG pH VBG pCO2 VBG HCO3 VBG Total CO2 VBG O2 Sat (Calc) VBG Base Excess VBG Potassium Sodium Chloride Glucose Lactate FiO2 Potassium Carbon Dioxide Anion Gap BUN Creatinine Est GFR ( Amer) Est GFR (Non-Af Amer) POC Glucose (mg/dL) Random Glucose Serum Osmolality Calcium Phosphorus Magnesium Total Bilirubin AST ALT Alkaline Phosphatase Troponin I 0.4970 H* NT-Pro-B Natriuret Pep Total Protein Albumin Globulin Albumin/Globulin Ratio Venous Blood Potassium Urine Color Yellow Urine Clarity Cloudy Urine pH 6.0 Ur Specific [place] 1.016 Urine Protein 30 Urine Glucose (UA) Neg Urine Ketones Negative Urine Blood Moderate Urine Nitrate Negative Urine Bilirubin Negative Urine Urobilinogen 0.2-1.0 Ur Leukocyte Esterase Large Urine RBC (Auto) 16 H Urine Microscopic WBC 92 H Ur Squamous Epith Cells 3 Urine Bacteria Rare Hyaline Casts 3-5 H Urine Yeast (Budding) Occ H Digoxin Blood Type Antibody Screen BBK History Checked 06/21/17 08:35 WBC RBC Hgb Hct MCV MCH MCHC RDW Plt Count MPV Neut % (Auto) Lymph % (Auto) Deuel % (Auto) Eos % (Auto) Baso % (Auto) Neut # Lymph # Deuel # Eos # Baso # Neutrophils % (Manual) Band Neutrophils % Lymphocytes % (Manual) Monocytes % (Manual) Platelet Estimate Anisocytosis (manual) Ovalocytes Acanthocytes (Spur) pO2 VBG pH VBG pCO2 VBG HCO3 VBG Total CO2 VBG O2 Sat (Calc) VBG Base Excess VBG Potassium Sodium 145 Chloride 98 Glucose Lactate FiO2 Potassium 3.6 Carbon Dioxide 46 H* D Anion Gap 5 L BUN 63 H Creatinine 0.7 Est GFR ( Amer) > 60 Est GFR (Non-Af Amer) > 60 POC Glucose (mg/dL) Random Glucose 128 H Serum Osmolality Calcium 8.9 Phosphorus Magnesium Total Bilirubin AST ALT Alkaline Phosphatase Troponin I NT-Pro-B Natriuret Pep Total Protein Albumin Globulin Albumin/Globulin Ratio Venous Blood Potassium Urine Color Urine Clarity Urine pH Ur Specific [place] Urine Protein Urine Glucose (UA) Urine Ketones Urine Blood Urine Nitrate Urine Bilirubin Urine Urobilinogen Ur Leukocyte Esterase Urine RBC (Auto) Urine Microscopic WBC Ur Squamous Epith Cells Urine Bacteria Hyaline Casts Urine Yeast (Budding) Digoxin Blood Type Antibody Screen BBK History Checked Assessment & Plan - Assessment and Plan (Free Text) Assessment: 1) Pnuemonia : HCAP - X ray showed persistent right superior paramediastianal opacity, questionable significance, small right pleural effusion - WBC: 21.3 - Order CT - Pulm consulted - ID consulted - Zosyn and clindamycin 2) COPD exacerbation - duonebs 3mL Inh Q4h - Methylprednisolone 3) Left sided acute on chronic diastolic dysfunction with preserved EF. - Troponin x 2 positive - previous echo reviewed : EF : 65- 75 % - Lurer: Dr. Jean consulted - last echo 05/15/2017 showed EF 60-65%, severe tricuspid regurgitation, severe pulmonary hypertension - Lasix 40 mg BID ordered today 4) Afib - home medication digoxin and Xarelto - has atrial sensed ventricular paced pacemaker 5) DVT prophylaxis -SCD - xaralto <Juan A Lawrence - Last Filed: 07/01/17 22:32> Results - Vital Signs Recent Vital Signs: Last Vital Signs Temp 98.1 F 07/01/17 20:09 Pulse 77 07/01/17 20:09 Resp 18 07/01/17 20:09 BP 127/61 07/01/17 20:09 Pulse Ox 100 07/01/17 20:09 - Labs Result Diagrams: 06/30/17 06:30 06/30/17 07:30 Labs: Laboratory Results - last 24 hr 06/30/17 07/01/17 07/01/17 21:23 05:48 11:09 POC Glucose (mg/dL) 297 H 285 H 299 H 07/01/17 16:58 POC Glucose (mg/dL) 189 H Assessment & Plan - Assessment and Plan (Free Text) Plan: I was present during evaluation and discussed with Dr Santana re plans of care and treatment. Juan A Lawrence M.D.
[2017-06-21] MEDS: Clindamycin 300 MG in Sodium Chloride 0.9% 50 ML IVPB SCH ×2 (12:13→16:22)
[2017-06-21] MEDS: Insulin Regular 100 units/ml SC SCH ×2 (12:13→16:31)
--- NOTE | 2017-06-21 13:35 | CT ---
PROCEDURE: CT Chest without contrast HISTORY: sob, r/o pna COMPARISON: 06/13/2017 TECHNIQUE: Contiguous axial images were obtained through the chest without intravenous contrast enhancement. Sagittal and coronal reconstructions were performed. Radiation dose (DLP): 211.44 mGy-cm. This CT exam was performed using one or more of the following dose reduction techniques: Automated exposure control, adjustment of the mA and/or kV according to patient size, and/or use of iterative reconstruction technique. FINDINGS: LUNGS: Increasing right upper lobe ill-defined alveolar opacity compared to 06/13/2017. New ill-defined alveolar opacity in apical posterior segment of left upper lobe. Persistent extensive right lower lobe atelectasis associated with moderate right pleural effusion. The atelectasis and pleural effusion appear grossly unchanged. No other infiltrate identified. MEDIASTINUM: Unremarkable thoracic aorta. No aneurysm. Mild cardiomegaly. Status post CABG. Permanent pacemaker. Dilatation of main pulmonary artery to a diameter approximately 3.3 cm. This may correlate with pulmonary arterial hypertension. Few minimally enlarged mediastinal lymph nodes, nonspecific. PLEURA: Moderate right pleural effusion. No left pleural effusion. No pneumothorax. BONES: Moderate compression deformity of the T6, T10 and T11 vertebrae unchanged from 06/13. No new fracture . UPPER ABDOMEN: Nonobstructing 3 mm left upper pole renal calculus. OTHER FINDINGS: None. IMPRESSION: Stable right pleural effusion and right lower lobe atelectasis. Increasing right upper lobe infiltrate. New left upper lobe infiltrate. Other nonacute findings as above.
[2017-06-21] MEDS: Tobramycin 0.3% OPHT SOLN OU SCH ×2 (14:38→16:23)
[2017-06-21] MEDS: Piperacillin/Tazobact 4.5 GM in Sodium Chloride 0.9% 100 ML IVPB SCH ×3 (14:40→21:11)
--- NOTE | 2017-06-21 15:43 | CP.PCM.CON ---
History of Present Illness - History of Present Illness History of Present Illness: Pulmonary consult. Pt sent to ER [facility], [place], from [facility] on 06/20/17 for evaluation of abnormal Labs report while in the Alf on DOA. Troponin = 1.77 NW=892 K= 2.6 Pt discharged on 06/18/17 from [facility] to [facility] for BERE after been Tx for PNA. Pulmonary consult for a 82 y/o F, after found a CT chest with increased RUL PNA and new SANDRA infiltrate. Pt with mild SOB associated to chest congestion, no cough but associated with tiredness, weakness. Worsening symptoms: In ER c/o of Mid chest pain that was subsided. Pt denied: Fever, chills, n/v/d, abdominal pain, palpitations, dizziness, headache, sick contact. CT Chest: Stable R pleural effusion and RLL atelectasis. Increased RUL infiltrate and new SANDRA infiltrate. Permanent pacemaker, s/p CABG. Review of Systems - Constitutional Constitutional: Weakness - EENT Eyes: Other (negative) Ears: Other (negative) Nose/Mouth/Throat: Other (negative) - Cardiovascular Cardiovascular: Leg Edema - Respiratory Respiratory: Dyspnea, Wheezing (expiratory), Chest Congestion - Gastrointestinal Gastrointestinal: Other (negative) - Genitourinary Genitourinary: Urinary Incontinence - Musculoskeletal Musculoskeletal: Arthralgias, Muscle Weakness - Integumentary Integumentary: Other (Sternotomy scar) - Neurological Neurological: Memory Loss (mild) - Psychiatric Psychiatric: Memory Loss (mild) - Endocrine Endocrine: Other (negative) - Hematologic/Lymphatic Hematologic: Other (negative) Past Patient History - Infectious Disease Hx of Infectious Diseases: None (Unknown) - Tetanus Immunizations Tetanus Immunization: Unknown - Past Medical History & Family History Past Medical History?: Yes Pertinent Family History: Unknown - Past Social History Smoking Status: Never Smoked Alcohol: None Drugs: Denies Home Situation {Lives}: With Family - CARDIAC Hx Cardiac Disorders: Yes Hx Atrial Fibrillation: Yes Hx Congestive Heart Failure: Yes Hx Hypertension: Yes Hx Pacemaker: Yes Hx Peripheral Edema: Yes - PULMONARY Hx Respiratory Disorders: Yes Hx Asthma: Yes Hx Pneumonia: Yes - NEUROLOGICAL Hx Neurological Disorder: Yes Hx Dementia: Yes Hx Parkinson's Disease: Yes Hx Transient Ischemic Attacks (TIA): Yes - HEENT Hx HEENT Problems: No - RENAL Hx Chronic Kidney Disease: No - ENDOCRINE/METABOLIC Hx Endocrine Disorders: Yes Hx Diabetes Mellitus Type 2: Yes - HEMATOLOGICAL/ONCOLOGICAL Hx Blood Disorders: Yes Hx AIDS: No Hx Anemia: Yes Hx Human Immunodeficiency Virus (HIV): No - INTEGUMENTARY Hx Dermatological Problems: No - MUSCULOSKELETAL/RHEUMATOLOGICAL Hx Musculoskeletal Disorders: Yes Hx Arthritis: Yes Hx Falls: Yes Hx Rheumatoid Arthritis: No - GASTROINTESTINAL Hx Gastrointestinal Disorders: No - GENITOURINARY/GYNECOLOGICAL Hx Genitourinary Disorders: Yes Hx Incontinence: Yes - PSYCHIATRIC Hx Psychophysiologic Disorder: No Hx Substance Use: No - SURGICAL HISTORY Hx Surgeries: Yes Hx Appendectomy: Yes Hx Carotid Endarterectomy: Yes Hx Cholecystectomy: Yes Hx Coronary Artery Bypass Graft: Yes - ANESTHESIA Hx Anesthesia: Yes Hx Anesthesia Reactions: No Hx Malignant Hyperthermia: No Meds Allergies/Adverse Reactions: Allergies Allergy/AdvReac Type Severity Reaction Status Date / Time oxycodone Allergy RASH Verified 06/20/17 22:31 - Medications Medications: Current Medications Acetaminophen (Tylenol 325mg Tab) 650 mg PO Q6 PRN PRN Reason: Pain, Mild (1-3) Acetaminophen (Tylenol 325mg Tab) 650 mg PO Q4 PRN PRN Reason: Fever >100.4 F, headache Albuterol/Ipratropium (Duoneb 3 Mg/0.5 Mg (3 Ml) Ud) 3 ml INH RQ4 [facility] Last Admin: 06/21/17 11:16 Dose: 3 ml Albuterol/Ipratropium (Duoneb 3 Mg/0.5 Mg (3 Ml) Ud) 3 ml IH Q6H PRN PRN Reason: Shortness of Breath Benzonatate (Tessalon Perles) 100 mg PO TID PRN PRN Reason: Cough Digoxin (Lanoxin) 0.125 mg PO DAILY [facility] Last Admin: 06/21/17 10:36 Dose: 0.125 mg Ferrous Sulfate (Feosol) 325 mg PO DAILY [facility] Last Admin: 06/21/17 10:53 Dose: 325 mg Furosemide (Lasix) 40 mg IVP BID [facility] Last Admin: 06/21/17 10:38 Dose: 40 mg Gabapentin (Neurontin) 300 mg PO HS [facility] Clindamycin Phosphate 300 mg/ (Sodium Chloride) 52 mls @ 52 mls/hr IVPB Q8 CHUY PRN Reason: Protocol Last Admin: 06/21/17 12:13 Dose: 52 mls/hr Piperacillin Sod/Tazobactam (Sod 4.5 gm/ Sodium Chloride) 100 mls @ 100 mls/hr IVPB Q6 [facility] PRN Reason: Protocol Insulin Human Regular (Humulin R) 0 units SC ACCU-CHECK CHUY PRN Reason: Protocol Last Admin: 06/21/17 12:13 Dose: 2 units Lactobacillus Acidophilus (Bacid Acidophilus) 1 cap PO BID [facility] Last Admin: 06/21/17 10:53 Dose: 1 cap Magnesium Hydroxide (Milk Of Magnesia) 30 ml PO DAILY PRN PRN Reason: Constipation Methylprednisolone (Solu-Medrol) 20 mg IVP QID [facility] Last Admin: 06/21/17 14:38 Dose: 20 mg Metolazone (Zaroxolyn) 2.5 mg PO DAILY [facility] Last Admin: 06/21/17 10:36 Dose: 2.5 mg Nitroglycerin (Nitrostat Sl Tab) 0.4 mg SL Q5M PRN PRN Reason: Other Last Admin: 06/21/17 06:36 Dose: 0.4 mg Pantoprazole Sodium (Protonix Ec Tab) 40 mg PO DAILY [facility] Last Admin: 06/21/17 10:35 Dose: 40 mg Rivaroxaban (Xarelto) 15 mg PO DAILY [facility] PRN Reason: Protocol Last Admin: 06/21/17 10:34 Dose: 15 mg Sitagliptin Phosphate (Januvia) 50 mg PO DAILY [facility] Last Admin: 06/21/17 10:34 Dose: 50 mg Tobramycin Sulfate (Tobrex 0.3% Ophth Soln) 1 drop OU TID [facility] Last Admin: 06/21/17 14:38 Dose: 1 drop Valsartan (Diovan) 160 mg PO DAILY [facility] Last Admin: 06/21/17 10:34 Dose: 160 mg Physical Exam - Constitutional Appears: No Acute Distress, Chronically Ill - Head Exam Head Exam: NORMAL INSPECTION - Eye Exam Eye Exam: PERRL - ENT Exam ENT Exam: Normal Exam - Neck Exam Neck exam: Positive for: Normal Inspection - Respiratory Exam Respiratory Exam: Decreased Breath Sounds (b/l), Rhonchi (scattered) - Cardiovascular Exam Cardiovascular Exam: REGULAR RHYTHM, Systolic Murmur (3/6 LSB [place] radiated to axilla.) Additional comments: Sternotomy scar. L PPM - GI/Abdominal Exam GI & Abdominal Exam: Normal Bowel Sounds, Soft - Extremities Exam Additional comments: Edema 1+ non-pitting L/E - Back Exam Back exam: NORMAL INSPECTION - Neurological Exam Neurological exam: Alert Additional comments: Oriented x2, generalized weakness. - Psychiatric Exam Psychiatric exam: Normal Mood - Skin Skin Exam: Warm Results - Vital Signs Recent Vital Signs: Last Vital Signs Temp 98.2 F 06/21/17 12:48 Pulse 71 06/21/17 12:48 Resp 18 06/21/17 12:48 BP 140/64 06/21/17 12:48 Pulse Ox 99 06/21/17 12:48 reviewed Dawn - Labs Result Diagrams: 06/21/17 08:35 06/21/17 08:35 Labs: Laboratory Results - last 24 hr 06/20/17 06/20/17 06/20/17 22:50 23:10 23:20 WBC RBC Hgb Hct MCV MCH MCHC RDW Plt Count MPV Neut % (Auto) Lymph % (Auto) [place] % (Auto) Eos % (Auto) Baso % (Auto) Neut # Lymph # [place] # Eos # Baso # Neutrophils % (Manual) Band Neutrophils % Lymphocytes % (Manual) Monocytes % (Manual) Platelet Estimate Anisocytosis (manual) Ovalocytes Acanthocytes (Spur) pO2 70 H VBG pH 7.51 H VBG pCO2 56 VBG HCO3 39.3 VBG Total CO2 46.4 H VBG O2 Sat (Calc) 99.9 H VBG Base Excess 18.5 H VBG Potassium 4.4 Sodium 142.0 Chloride 99.0 Glucose 253 H Lactate 2.7 H FiO2 21.0 Potassium Carbon Dioxide Anion Gap BUN Creatinine Est GFR ( Amer) Est GFR (Non-Af Amer) POC Glucose (mg/dL) 255 H Random Glucose Serum Osmolality Calcium Phosphorus Magnesium Total Bilirubin AST ALT Alkaline Phosphatase Troponin I NT-Pro-B Natriuret Pep Total Protein Albumin Globulin Albumin/Globulin Ratio Venous Blood Potassium 4.4 Urine Color Urine Clarity Urine pH Ur Specific [place] Urine Protein Urine Glucose (UA) Urine Ketones Urine Blood Urine Nitrate Urine Bilirubin Urine Urobilinogen Ur Leukocyte Esterase Urine RBC (Auto) Urine Microscopic WBC Ur Squamous Epith Cells Urine Bacteria Hyaline Casts Urine Yeast (Budding) Digoxin Blood Type Cancelled Antibody Screen Cancelled BBK History Checked Cancelled 06/20/17 06/20/17 06/20/17 23:27 23:27 23:27 WBC 20.7 H D RBC 3.42 L Hgb 10.2 L Hct 31.6 L MCV 92.5 MCH 29.7 MCHC 32.1 L RDW 18.8 H Plt Count 258 MPV 11.5 Neut % (Auto) 90.6 H Lymph % (Auto) 5.1 L [place] % (Auto) 3.9 Eos % (Auto) 0.0 Baso % (Auto) 0.4 Neut # 18.7 H Lymph # 1.1 [place] # 0.8 Eos # 0.0 Baso # 0.1 Neutrophils % (Manual) 88 H Band Neutrophils % 2 Lymphocytes % (Manual) 6 L Monocytes % (Manual) 4 Platelet Estimate Normal Anisocytosis (manual) Slight Ovalocytes Slight Acanthocytes (Spur) Slight pO2 VBG pH VBG pCO2 VBG HCO3 VBG Total CO2 VBG O2 Sat (Calc) VBG Base Excess VBG Potassium Sodium 141 Chloride 95 L Glucose Lactate FiO2 Potassium 4.3 Carbon Dioxide 38 H Anion Gap 12 BUN 73 H Creatinine 0.8 Est GFR ( Amer) > 60 Est GFR (Non-Af Amer) > 60 POC Glucose (mg/dL) Random Glucose 223 H Serum Osmolality 327 H Calcium 9.5 Phosphorus 3.4 Magnesium 2.3 Total Bilirubin 1.8 H AST 141 H D ALT 56 H Alkaline Phosphatase 83 Troponin I 0.5600 H* NT-Pro-B Natriuret Pep 49984 H Total Protein 6.4 Albumin 3.7 Globulin 2.7 Albumin/Globulin Ratio 1.4 Venous Blood Potassium Urine Color Urine Clarity Urine pH Ur Specific [place] Urine Protein Urine Glucose (UA) Urine Ketones Urine Blood Urine Nitrate Urine Bilirubin Urine Urobilinogen Ur Leukocyte Esterase Urine RBC (Auto) Urine Microscopic WBC Ur Squamous Epith Cells Urine Bacteria Hyaline Casts Urine Yeast (Budding) Digoxin Blood Type Antibody Screen BBK History Checked 06/20/17 06/21/17 06/21/17 23:27 00:05 00:13 WBC RBC Hgb Hct MCV MCH MCHC RDW Plt Count MPV Neut % (Auto) Lymph % (Auto) [place] % (Auto) Eos % (Auto) Baso % (Auto) Neut # Lymph # [place] # Eos # Baso # Neutrophils % (Manual) Band Neutrophils % Lymphocytes % (Manual) Monocytes % (Manual) Platelet Estimate Anisocytosis (manual) Ovalocytes Acanthocytes (Spur) pO2 VBG pH VBG pCO2 VBG HCO3 VBG Total CO2 VBG O2 Sat (Calc) VBG Base Excess VBG Potassium Sodium Chloride Glucose Lactate FiO2 Potassium 2.9 L Carbon Dioxide Anion Gap BUN Creatinine Est GFR ( Amer) Est GFR (Non-Af Amer) POC Glucose (mg/dL) Random Glucose Serum Osmolality Calcium Phosphorus Magnesium Total Bilirubin AST ALT Alkaline Phosphatase Troponin I NT-Pro-B Natriuret Pep Total Protein Albumin Globulin Albumin/Globulin Ratio Venous Blood Potassium Urine Color Urine Clarity Urine pH Ur Specific [place] Urine Protein Urine Glucose (UA) Urine Ketones Urine Blood Urine Nitrate Urine Bilirubin Urine Urobilinogen Ur Leukocyte Esterase Urine RBC (Auto) Urine Microscopic WBC Ur Squamous Epith Cells Urine Bacteria Hyaline Casts Urine Yeast (Budding) Digoxin 1.2 Blood Type AB POSITIVE Antibody Screen Negative BBK History Checked Patient has bt 06/21/17 06/21/17 06/21/17 00:46 04:50 04:52 WBC RBC Hgb Hct MCV MCH MCHC RDW Plt Count MPV Neut % (Auto) Lymph % (Auto) [place] % (Auto) Eos % (Auto) Baso % (Auto) Neut # Lymph # [place] # Eos # Baso # Neutrophils % (Manual) Band Neutrophils % Lymphocytes % (Manual) Monocytes % (Manual) Platelet Estimate Anisocytosis (manual) Ovalocytes Acanthocytes (Spur) pO2 VBG pH VBG pCO2 VBG HCO3 VBG Total CO2 VBG O2 Sat (Calc) VBG Base Excess VBG Potassium Sodium Chloride Glucose Lactate FiO2 Potassium Carbon Dioxide Anion Gap BUN Creatinine Est GFR ( Amer) Est GFR (Non-Af Amer) POC Glucose (mg/dL) 140 H Random Glucose Serum Osmolality Calcium Phosphorus Magnesium Total Bilirubin AST ALT Alkaline Phosphatase Troponin I 0.4970 H* NT-Pro-B Natriuret Pep Total Protein Albumin Globulin Albumin/Globulin Ratio Venous Blood Potassium Urine Color Yellow Urine Clarity Cloudy Urine pH 6.0 Ur Specific [place] 1.016 Urine Protein 30 Urine Glucose (UA) Neg Urine Ketones Negative Urine Blood Moderate Urine Nitrate Negative Urine Bilirubin Negative Urine Urobilinogen 0.2-1.0 Ur Leukocyte Esterase Large Urine RBC (Auto) 16 H Urine Microscopic WBC 92 H Ur Squamous Epith Cells 3 Urine Bacteria Rare Hyaline Casts 3-5 H Urine Yeast (Budding) Occ H Digoxin Blood Type Antibody Screen BBK History Checked 06/21/17 06/21/17 06/21/17 08:35 08:35 11:26 WBC 21.3 H RBC 3.36 L Hgb 9.8 L Hct 31.4 L MCV 93.4 MCH 29.2 MCHC 31.2 L RDW 18.7 H Plt Count 200 MPV Neut % (Auto) Lymph % (Auto) [place] % (Auto) Eos % (Auto) Baso % (Auto) Neut # Lymph # [place] # Eos # Baso # Neutrophils % (Manual) Band Neutrophils % Lymphocytes % (Manual) Monocytes % (Manual) Platelet Estimate Anisocytosis (manual) Ovalocytes Acanthocytes (Spur) pO2 VBG pH VBG pCO2 VBG HCO3 VBG Total CO2 VBG O2 Sat (Calc) VBG Base Excess VBG Potassium Sodium 145 Chloride 98 Glucose Lactate FiO2 Potassium 3.6 Carbon Dioxide 46 H* D Anion Gap 5 L BUN 63 H Creatinine 0.7 Est GFR ( Amer) > 60 Est GFR (Non-Af Amer) > 60 POC Glucose (mg/dL) 155 H Random Glucose 128 H Serum Osmolality Calcium 8.9 Phosphorus Magnesium Total Bilirubin AST ALT Alkaline Phosphatase Troponin I NT-Pro-B Natriuret Pep Total Protein Albumin Globulin Albumin/Globulin Ratio Venous Blood Potassium Urine Color Urine Clarity Urine pH Ur Specific [place] Urine Protein Urine Glucose (UA) Urine Ketones Urine Blood Urine Nitrate Urine Bilirubin Urine Urobilinogen Ur Leukocyte Esterase Urine RBC (Auto) Urine Microscopic WBC Ur Squamous Epith Cells Urine Bacteria Hyaline Casts Urine Yeast (Budding) Digoxin Blood Type Antibody Screen BBK History Checked reviewed J.P. - EKG Data EKG comments: reviewed J.P. - Imaging and Cardiology CT scan - chest Status: Report reviewed by me (Dawn) Assessment & Plan (1) HCAP (healthcare-associated pneumonia) Status: Acute Priority: High (2) COPD (chronic obstructive pulmonary disease) Status: Chronic Priority: High (3) Pulmonary hypertension Status: Chronic - Assessment and Plan (Free Text) Plan: F/U Blood C-S, continue Zosyn, Clinda, Solumedrol, Duoneb, Lasix and rest of Tx. - Date & Time Date: 06/21/17 Time: 12:30
--- NOTE | 2017-06-21 20:43 | CP.PCM.CON ---
History of Present Illness - History of Present Illness History of Present Illness: Patient seen examined. full consult to follow. 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 Patient has mildly elevated troponin. Clinically no evidence of myocardial infarction Medical therapy. Past Patient History - Infectious Disease Hx of Infectious Diseases: None - Tetanus Immunizations Tetanus Immunization: Unknown - Past Medical History & Family History Past Medical History?: Yes - Past Social History Smoking Status: Never Smoked - CARDIAC Hx Cardiac Disorders: Yes Hx Atrial Fibrillation: Yes Hx Congestive Heart Failure: Yes Hx Hypertension: Yes Hx Pacemaker: Yes Hx Peripheral Edema: Yes - PULMONARY Hx Respiratory Disorders: Yes Hx Asthma: Yes Hx Pneumonia: Yes - NEUROLOGICAL Hx Neurological Disorder: Yes Hx Dementia: Yes Hx Parkinson's Disease: Yes Hx Transient Ischemic Attacks (TIA): Yes - HEENT Hx HEENT Problems: No - RENAL Hx Chronic Kidney Disease: No - ENDOCRINE/METABOLIC Hx Endocrine Disorders: Yes Hx Diabetes Mellitus Type 2: Yes - HEMATOLOGICAL/ONCOLOGICAL Hx Blood Disorders: Yes Hx AIDS: No Hx Anemia: Yes Hx Human Immunodeficiency Virus (HIV): No - INTEGUMENTARY Hx Dermatological Problems: No - MUSCULOSKELETAL/RHEUMATOLOGICAL Hx Musculoskeletal Disorders: Yes Hx Arthritis: Yes Hx Falls: Yes Hx Rheumatoid Arthritis: No - GASTROINTESTINAL Hx Gastrointestinal Disorders: No - GENITOURINARY/GYNECOLOGICAL Hx Genitourinary Disorders: Yes Hx Incontinence: Yes - PSYCHIATRIC Hx Psychophysiologic Disorder: No Hx Substance Use: No - SURGICAL HISTORY Hx Surgeries: Yes Hx Appendectomy: Yes Hx Carotid Endarterectomy: Yes Hx Cholecystectomy: Yes Hx Coronary Artery Bypass Graft: Yes - ANESTHESIA Hx Anesthesia: Yes Hx Anesthesia Reactions: No Hx Malignant Hyperthermia: No Meds Allergies/Adverse Reactions: Allergies Allergy/AdvReac Type Severity Reaction Status Date / Time oxycodone Allergy RASH Verified 06/20/17 22:31 - Medications Medications: Current Medications Acetaminophen (Tylenol 325mg Tab) 650 mg PO Q6 PRN PRN Reason: Pain, Mild (1-3) Acetaminophen (Tylenol 325mg Tab) 650 mg PO Q4 PRN PRN Reason: Fever >100.4 F, headache Albuterol/Ipratropium (Duoneb 3 Mg/0.5 Mg (3 Ml) Ud) 3 ml INH RQ4 CHUY Last Admin: 06/21/17 19:50 Dose: 3 ml Albuterol/Ipratropium (Duoneb 3 Mg/0.5 Mg (3 Ml) Ud) 3 ml IH Q6H PRN PRN Reason: Shortness of Breath Benzonatate (Tessalon Perles) 100 mg PO TID PRN PRN Reason: Cough Digoxin (Lanoxin) 0.125 mg PO DAILY [facility] Last Admin: 06/21/17 10:36 Dose: 0.125 mg Ferrous Sulfate (Feosol) 325 mg PO DAILY [facility] Last Admin: 06/21/17 10:53 Dose: 325 mg Furosemide (Lasix) 40 mg IVP BID [facility] Last Admin: 06/21/17 16:36 Dose: 40 mg Gabapentin (Neurontin) 300 mg PO [facility] Clindamycin Phosphate 300 mg/ (Sodium Chloride) 52 mls @ 52 mls/hr IVPB Q8 [facility] PRN Reason: Protocol Last Admin: 06/21/17 16:22 Dose: 52 mls/hr Piperacillin Sod/Tazobactam (Sod 4.5 gm/ Sodium Chloride) 100 mls @ 100 mls/hr IVPB Q6 [facility] PRN Reason: Protocol Last Admin: 06/21/17 16:22 Dose: 100 mls/hr Insulin Human Regular (Humulin R) 0 units SC ACCU-CHECK [facility] PRN Reason: Protocol Last Admin: 06/21/17 16:31 Dose: 6 units Lactobacillus Acidophilus (Bacid Acidophilus) 1 cap PO BID [facility] Last Admin: 06/21/17 16:21 Dose: 1 cap Magnesium Hydroxide (Milk Of Magnesia) 30 ml PO DAILY PRN PRN Reason: Constipation Methylprednisolone (Solu-Medrol) 20 mg IVP QID [facility] Last Admin: 06/21/17 16:23 Dose: 20 mg Metolazone (Zaroxolyn) 2.5 mg PO DAILY [facility] Last Admin: 06/21/17 10:36 Dose: 2.5 mg Nitroglycerin (Nitrostat Sl Tab) 0.4 mg SL Q5M PRN PRN Reason: Other Last Admin: 06/21/17 06:36 Dose: 0.4 mg Pantoprazole Sodium (Protonix Ec Tab) 40 mg PO DAILY [facility] Last Admin: 06/21/17 10:35 Dose: 40 mg Rivaroxaban (Xarelto) 15 mg PO DAILY [facility] PRN Reason: Protocol Last Admin: 06/21/17 10:34 Dose: 15 mg Sitagliptin Phosphate (Januvia) 50 mg PO DAILY [facility] Last Admin: 06/21/17 10:34 Dose: 50 mg Tobramycin Sulfate (Tobrex 0.3% Ophth Soln) 1 drop OU TID [facility] Last Admin: 06/21/17 16:23 Dose: Not Given Valsartan (Diovan) 160 mg PO DAILY [facility] Last Admin: 06/21/17 10:34 Dose: 160 mg Results - Vital Signs Recent Vital Signs: Last Vital Signs Temp 98.4 F 06/21/17 20:00 Pulse 63 06/21/17 20:00 Resp 18 06/21/17 20:00 BP 124/70 06/21/17 20:00 Pulse Ox 99 06/21/17 20:00 - Labs Result Diagrams: 06/21/17 08:35 06/21/17 08:35 Labs: Laboratory Results - last 24 hr 06/20/17 06/20/17 06/20/17 22:50 23:10 23:20 WBC RBC Hgb Hct MCV MCH MCHC RDW Plt Count MPV Neut % (Auto) Lymph % (Auto) [place] % (Auto) Eos % (Auto) Baso % (Auto) Neut # Lymph # [place] # Eos # Baso # Neutrophils % (Manual) Band Neutrophils % Lymphocytes % (Manual) Monocytes % (Manual) Platelet Estimate Anisocytosis (manual) Ovalocytes Acanthocytes (Spur) pO2 70 H VBG pH 7.51 H VBG pCO2 56 VBG HCO3 39.3 VBG Total CO2 46.4 H VBG O2 Sat (Calc) 99.9 H VBG Base Excess 18.5 H VBG Potassium 4.4 Sodium 142.0 Chloride 99.0 Glucose 253 H Lactate 2.7 H FiO2 21.0 Potassium Carbon Dioxide Anion Gap BUN Creatinine Est GFR ( Amer) Est GFR (Non-Af Amer) POC Glucose (mg/dL) 255 H Random Glucose Serum Osmolality Calcium Phosphorus Magnesium Total Bilirubin AST ALT Alkaline Phosphatase Troponin I NT-Pro-B Natriuret Pep Total Protein Albumin Globulin Albumin/Globulin Ratio Venous Blood Potassium 4.4 Urine Color Urine Clarity Urine pH Ur Specific [place] Urine Protein Urine Glucose (UA) Urine Ketones Urine Blood Urine Nitrate Urine Bilirubin Urine Urobilinogen Ur Leukocyte Esterase Urine RBC (Auto) Urine Microscopic WBC Ur Squamous Epith Cells Urine Bacteria Hyaline Casts Urine Yeast (Budding) Digoxin Blood Type Cancelled Antibody Screen Cancelled BBK History Checked Cancelled 06/20/17 06/20/17 06/20/17 23:27 23:27 23:27 WBC 20.7 H D RBC 3.42 L Hgb 10.2 L Hct 31.6 L MCV 92.5 MCH 29.7 MCHC 32.1 L RDW 18.8 H Plt Count 258 MPV 11.5 Neut % (Auto) 90.6 H Lymph % (Auto) 5.1 L [place] % (Auto) 3.9 Eos % (Auto) 0.0 Baso % (Auto) 0.4 Neut # 18.7 H Lymph # 1.1 [place] # 0.8 Eos # 0.0 Baso # 0.1 Neutrophils % (Manual) 88 H Band Neutrophils % 2 Lymphocytes % (Manual) 6 L Monocytes % (Manual) 4 Platelet Estimate Normal Anisocytosis (manual) Slight Ovalocytes Slight Acanthocytes (Spur) Slight pO2 VBG pH VBG pCO2 VBG HCO3 VBG Total CO2 VBG O2 Sat (Calc) VBG Base Excess VBG Potassium Sodium 141 Chloride 95 L Glucose Lactate FiO2 Potassium 4.3 Carbon Dioxide 38 H Anion Gap 12 BUN 73 H Creatinine 0.8 Est GFR ( Amer) > 60 Est GFR (Non-Af Amer) > 60 POC Glucose (mg/dL) Random Glucose 223 H Serum Osmolality 327 H Calcium 9.5 Phosphorus 3.4 Magnesium 2.3 Total Bilirubin 1.8 H AST 141 H D ALT 56 H Alkaline Phosphatase 83 Troponin I 0.5600 H* NT-Pro-B Natriuret Pep 29093 H Total Protein 6.4 Albumin 3.7 Globulin 2.7 Albumin/Globulin Ratio 1.4 Venous Blood Potassium Urine Color Urine Clarity Urine pH Ur Specific [place] Urine Protein Urine Glucose (UA) Urine Ketones Urine Blood Urine Nitrate Urine Bilirubin Urine Urobilinogen Ur Leukocyte Esterase Urine RBC (Auto) Urine Microscopic WBC Ur Squamous Epith Cells Urine Bacteria Hyaline Casts Urine Yeast (Budding) Digoxin Blood Type Antibody Screen BBK History Checked 06/20/17 06/21/17 06/21/17 23:27 00:05 00:13 WBC RBC Hgb Hct MCV MCH MCHC RDW Plt Count MPV Neut % (Auto) Lymph % (Auto) [place] % (Auto) Eos % (Auto) Baso % (Auto) Neut # Lymph # [place] # Eos # Baso # Neutrophils % (Manual) Band Neutrophils % Lymphocytes % (Manual) Monocytes % (Manual) Platelet Estimate Anisocytosis (manual) Ovalocytes Acanthocytes (Spur) pO2 VBG pH VBG pCO2 VBG HCO3 VBG Total CO2 VBG O2 Sat (Calc) VBG Base Excess VBG Potassium Sodium Chloride Glucose Lactate FiO2 Potassium 2.9 L Carbon Dioxide Anion Gap BUN Creatinine Est GFR ( Amer) Est GFR (Non-Af Amer) POC Glucose (mg/dL) Random Glucose Serum Osmolality Calcium Phosphorus Magnesium Total Bilirubin AST ALT Alkaline Phosphatase Troponin I NT-Pro-B Natriuret Pep Total Protein Albumin Globulin Albumin/Globulin Ratio Venous Blood Potassium Urine Color Urine Clarity Urine pH Ur Specific [place] Urine Protein Urine Glucose (UA) Urine Ketones Urine Blood Urine Nitrate Urine Bilirubin Urine Urobilinogen Ur Leukocyte Esterase Urine RBC (Auto) Urine Microscopic WBC Ur Squamous Epith Cells Urine Bacteria Hyaline Casts Urine Yeast (Budding) Digoxin 1.2 Blood Type AB POSITIVE Antibody Screen Negative BBK History Checked Patient has bt 06/21/17 06/21/17 06/21/17 00:46 04:50 04:52 WBC RBC Hgb Hct MCV MCH MCHC RDW Plt Count MPV Neut % (Auto) Lymph % (Auto) [place] % (Auto) Eos % (Auto) Baso % (Auto) Neut # Lymph # [place] # Eos # Baso # Neutrophils % (Manual) Band Neutrophils % Lymphocytes % (Manual) Monocytes % (Manual) Platelet Estimate Anisocytosis (manual) Ovalocytes Acanthocytes (Spur) pO2 VBG pH VBG pCO2 VBG HCO3 VBG Total CO2 VBG O2 Sat (Calc) VBG Base Excess VBG Potassium Sodium Chloride Glucose Lactate FiO2 Potassium Carbon Dioxide Anion Gap BUN Creatinine Est GFR ( Amer) Est GFR (Non-Af Amer) POC Glucose (mg/dL) 140 H Random Glucose Serum Osmolality Calcium Phosphorus Magnesium Total Bilirubin AST ALT Alkaline Phosphatase Troponin I 0.4970 H* NT-Pro-B Natriuret Pep Total Protein Albumin Globulin Albumin/Globulin Ratio Venous Blood Potassium Urine Color Yellow Urine Clarity Cloudy Urine pH 6.0 Ur Specific [place] 1.016 Urine Protein 30 Urine Glucose (UA) Neg Urine Ketones Negative Urine Blood Moderate Urine Nitrate Negative Urine Bilirubin Negative Urine Urobilinogen 0.2-1.0 Ur Leukocyte Esterase Large Urine RBC (Auto) 16 H Urine Microscopic WBC 92 H Ur Squamous Epith Cells 3 Urine Bacteria Rare Hyaline Casts 3-5 H Urine Yeast (Budding) Occ H Digoxin Blood Type Antibody Screen BBK History Checked 06/21/17 06/21/17 06/21/17 08:35 08:35 11:26 WBC 21.3 H RBC 3.36 L Hgb 9.8 L Hct 31.4 L MCV 93.4 MCH 29.2 MCHC 31.2 L RDW 18.7 H Plt Count 200 MPV Neut % (Auto) Lymph % (Auto) [place] % (Auto) Eos % (Auto) Baso % (Auto) Neut # Lymph # [place] # Eos # Baso # Neutrophils % (Manual) Band Neutrophils % Lymphocytes % (Manual) Monocytes % (Manual) Platelet Estimate Anisocytosis (manual) Ovalocytes Acanthocytes (Spur) pO2 VBG pH VBG pCO2 VBG HCO3 VBG Total CO2 VBG O2 Sat (Calc) VBG Base Excess VBG Potassium Sodium 145 Chloride 98 Glucose Lactate FiO2 Potassium 3.6 Carbon Dioxide 46 H* D Anion Gap 5 L BUN 63 H Creatinine 0.7 Est GFR ( Amer) > 60 Est GFR (Non-Af Amer) > 60 POC Glucose (mg/dL) 155 H Random Glucose 128 H Serum Osmolality Calcium 8.9 Phosphorus Magnesium Total Bilirubin AST ALT Alkaline Phosphatase Troponin I NT-Pro-B Natriuret Pep Total Protein Albumin Globulin Albumin/Globulin Ratio Venous Blood Potassium Urine Color Urine Clarity Urine pH Ur Specific [place] Urine Protein Urine Glucose (UA) Urine Ketones Urine Blood Urine Nitrate Urine Bilirubin Urine Urobilinogen Ur Leukocyte Esterase Urine RBC (Auto) Urine Microscopic WBC Ur Squamous Epith Cells Urine Bacteria Hyaline Casts Urine Yeast (Budding) Digoxin Blood Type Antibody Screen BBK History Checked 06/21/17 06/21/17 14:45 16:10 WBC RBC Hgb Hct MCV MCH MCHC RDW Plt Count MPV Neut % (Auto) Lymph % (Auto) [place] % (Auto) Eos % (Auto) Baso % (Auto) Neut # Lymph # [place] # Eos # Baso # Neutrophils % (Manual) Band Neutrophils % Lymphocytes % (Manual) Monocytes % (Manual) Platelet Estimate Anisocytosis (manual) Ovalocytes Acanthocytes (Spur) pO2 VBG pH VBG pCO2 VBG HCO3 VBG Total CO2 VBG O2 Sat (Calc) VBG Base Excess VBG Potassium Sodium Chloride Glucose Lactate FiO2 Potassium Carbon Dioxide Anion Gap BUN Creatinine Est GFR ( Amer) Est GFR (Non-Af Amer) POC Glucose (mg/dL) 285 H Random Glucose Serum Osmolality Calcium Phosphorus Magnesium Total Bilirubin AST ALT Alkaline Phosphatase Troponin I 0.3670 H* NT-Pro-B Natriuret Pep Total Protein Albumin Globulin Albumin/Globulin Ratio Venous Blood Potassium Urine Color Urine Clarity Urine pH Ur Specific [place] Urine Protein Urine Glucose (UA) Urine Ketones Urine Blood Urine Nitrate Urine Bilirubin Urine Urobilinogen Ur Leukocyte Esterase Urine RBC (Auto) Urine Microscopic WBC Ur Squamous Epith Cells Urine Bacteria Hyaline Casts Urine Yeast (Budding) Digoxin Blood Type Antibody Screen BBK History Checked
--- NOTE | 2017-06-21 20:44 | CP.PCM.CON ---
History of Present Illness - History of Present Illness History of Present Illness: I was asked to evaluate patient by Dr Lawrence. Patient is a 82 year old female with PMH afib, s/p AV fabiana ablation and PPM, HTN, valvular heart disease who presents from [facility] with weakness. The patient had a recent COPD exacerbation and was treated medically, transferred to [facility]. She was found to be weak, and laboratory abnormalities. The patient was noted to have mildly elevated troponin. There ws no complaint of chest pain or dyspnea. Review of Systems - Constitutional Constitutional: Fatigue, Weakness - EENT Eyes: absent: As Per HPI, Blind Spots, Blurred Vision, Change in Vision, Decreased Night Vision, Diplopia, Discharge, Dry Eye, Exophthalmos, Floaters, Irritation, Itchy Eyes, Loss of Peripheral Vision, Pain, Photophobia, Requires Corrective Lenses, Sees Flashes, Spots in Vision, Tunnel Vision, Other Visual Disturbances, Loss of Vision, Other Ears: absent: As Per HPI, Decreased Hearing, Ear Discharge, Ear Pain, Tinnitus, Abnormal Hearing, Disequilibrium, Dizziness, Other Nose/Mouth/Throat: absent: As Per HPI, Epistaxis, Nasal Congestion, Nasal Discharge, Nasal Obstruction, Nasal Trauma, Nose Pain, Post Nasal Drip, Sinus Pain, Sinus Pressure, Bleeding Gums, Change in Voice, Dental Pain, Dry Mouth, Dysphagia, Halitosis, Hoarsness, Lip Swelling, Mouth Lesions, Mouth Pain, Odynophagia, Sore Throat, Throat Swelling, Tongue Swelling, Facial Pain, Neck Pain, Neck Mass, Other - Cardiovascular Cardiovascular: absent: As Per HPI, Acrocyanosis, Chest Pain, Chest Pain at Rest , Chest Pain with Activity, Claudication, Diaphoresis, Dyspnea, Dyspnea on Exertion, Edema, Irregular Heart Rhythm, Pain Radiating to Arm/Neck/Jaw, Leg Edema, Leg Ulcers, Lightheadedness, Orthopnea, Palpitations, Paroxysmal Nocturnal Dyspnea, Pedal Edema, Radiating Pain, Rapid Heart Rate, Slow Heart Rate, Syncope, Other - Respiratory Respiratory: absent: As Per HPI, Cough, Dyspnea, Hemoptysis, Dyspnea on Exertion , Wheezing, Snoring, Stridor, Pain on Inspiration, Chest Congestion, Excessive Mucous Production, Change in Mucous Color, Pain with Coughing, Other - Gastrointestinal Gastrointestinal: absent: As Per HPI, Abdominal Pain, Belching, Bloating, Change in Bowel Habits, Change in Stool Character, Coffee Ground Emesis, Constipation, Cramping, Diarrhea, Dyspepsia, Dysphagia, Early Satiety, Excessive Flatus, Fecal Incontinence, Heartburn, Hematemesis, Hematochezia, Loose Stools, Melena, Nausea, Odynophagia, Temesmus, Vomiting, Other - Genitourinary Genitourinary: absent: As Per HPI, Change in Urinary Stream, Difficulty Urinating, Dysuria, Flank Pain, Hematuria, Pyuria, Nocturia, Urinary Incontinence, Urinary Frequency, Urinary Hesitance, Urinary Urgency, Voiding Freq/Small Amts, Freq UTI, Hx Renal/Bladder Calculi, Hx /Renal Surgery, Bladder Distension, Other - Musculoskeletal Musculoskeletal: absent: As Per HPI, Abnormal Gait, Arthralgias, Atrophy, Back Pain, Deformity, Joint Swelling, Limited Range of Motion, Loss of Height, Muscle Cramps, Muscle Weakness, Myalgias, Neck Pain, Numbness, Radiating Pain into Limb, Stiffness, Tingling, Other - Integumentary Integumentary: absent: As Per HPI, Acne, Alopecia, Bleeding Lesions, Change in Hair, Change in Nails, Change in Pigmentation, Changing Lesions, Dry Skin, Erythema, Furuncle, Hirsutism, Lesions, New Lesions, Non-Healing Lesions, Photosensitivity, Pruritus, Rash, Skin Pain, Skin Ulcer, Sores, Striae, Swelling , Unusual Bruising, Wounds, Jaundice, Other - Neurological Neurological: absent: As Per HPI, Abnormal Gait, Abnormal Hearing, Abnormal Movements, Abnormal Speech, Behavioral Changes, Burning Sensations, Confusion, Convulsions, Disequilibrium, Dizziness, Numbness, Focal Weakness, Frequent Falls , Headaches, Lack of Coordination, Loss of Vision, Memory Loss, Paresthesias, Radicular Pain, Restless Legs, Sensory Deficit, Syncope, Tingling, Tremor, Vertigo, Weakness, Other Visual Disturbances, Other - Psychiatric Psychiatric: absent: As Per HPI, Abnormal Sleep Pattern, Anhedonia, Anxiety, Auditory Hallucinations, Behavioral Changes, Change in Appetite, Change in Libido, Confusion, Depression, Difficulty Concentrating, Hallucinations, Homicidal Ideation, Hopelessness, Irritability, Memory Loss, Mood Swings, Panic Attacks, Paranoia, Suicidal Ideation, Visual Hallucinations, Tactile Hallucinations, Other - Endocrine Endocrine: absent: As Per HPI, Change in Body Appearance, Change in Libido, Cold Intolorance, Deepening of Voice, Excessive Sweating, Fatigue, Flushing, Heat Intolorance, Increase in Ring/Shoe/Hat Size, Palpitations, Polydipsia, Polyphagia, Polyuria, Other - Hematologic/Lymphatic Hematologic: absent: As Per HPI, Easy Bleeding, Easy Bruising, Lymphadenopathy, Other Past Patient History - Infectious Disease Hx of Infectious Diseases: None (Unknown) - Tetanus Immunizations Tetanus Immunization: Unknown - Past Medical History & Family History Past Medical History?: Yes - Past Social History Smoking Status: Never Smoked - CARDIAC Hx Cardiac Disorders: Yes Hx Atrial Fibrillation: Yes Hx Congestive Heart Failure: Yes Hx Hypertension: Yes Hx Pacemaker: Yes Hx Peripheral Edema: Yes - PULMONARY Hx Respiratory Disorders: Yes Hx Asthma: Yes Hx Pneumonia: Yes - NEUROLOGICAL Hx Neurological Disorder: Yes Hx Dementia: Yes Hx Parkinson's Disease: Yes Hx Transient Ischemic Attacks (TIA): Yes - HEENT Hx HEENT Problems: No - RENAL Hx Chronic Kidney Disease: No - ENDOCRINE/METABOLIC Hx Endocrine Disorders: Yes Hx Diabetes Mellitus Type 2: Yes - HEMATOLOGICAL/ONCOLOGICAL Hx Blood Disorders: Yes Hx AIDS: No Hx Anemia: Yes Hx Human Immunodeficiency Virus (HIV): No - INTEGUMENTARY Hx Dermatological Problems: No - MUSCULOSKELETAL/RHEUMATOLOGICAL Hx Musculoskeletal Disorders: Yes Hx Arthritis: Yes Hx Falls: Yes Hx Rheumatoid Arthritis: No - GASTROINTESTINAL Hx Gastrointestinal Disorders: No - GENITOURINARY/GYNECOLOGICAL Hx Genitourinary Disorders: Yes Hx Incontinence: Yes - PSYCHIATRIC Hx Psychophysiologic Disorder: No Hx Substance Use: No - SURGICAL HISTORY Hx Surgeries: Yes Hx Appendectomy: Yes Hx Carotid Endarterectomy: Yes Hx Cholecystectomy: Yes Hx Coronary Artery Bypass Graft: Yes - ANESTHESIA Hx Anesthesia: Yes Hx Anesthesia Reactions: No Hx Malignant Hyperthermia: No Meds Allergies/Adverse Reactions: Allergies Allergy/AdvReac Type Severity Reaction Status Date / Time oxycodone Allergy RASH Verified 06/20/17 22:31 - Medications Medications: Current Medications Acetaminophen (Tylenol 325mg Tab) 650 mg PO Q6 PRN PRN Reason: Pain, Mild (1-3) Acetaminophen (Tylenol 325mg Tab) 650 mg PO Q4 PRN PRN Reason: Fever >100.4 F, headache Albuterol/Ipratropium (Duoneb 3 Mg/0.5 Mg (3 Ml) Ud) 3 ml INH RQ4 CHUY Last Admin: 06/21/17 19:50 Dose: 3 ml Albuterol/Ipratropium (Duoneb 3 Mg/0.5 Mg (3 Ml) Ud) 3 ml IH Q6H PRN PRN Reason: Shortness of Breath Benzonatate (Tessalon Perles) 100 mg PO TID PRN PRN Reason: Cough Digoxin (Lanoxin) 0.125 mg PO DAILY [facility] Last Admin: 06/21/17 10:36 Dose: 0.125 mg Ferrous Sulfate (Feosol) 325 mg PO DAILY [facility] Last Admin: 06/21/17 10:53 Dose: 325 mg Furosemide (Lasix) 40 mg IVP BID [facility] Last Admin: 06/21/17 16:36 Dose: 40 mg Gabapentin (Neurontin) 300 mg PO [facility] Clindamycin Phosphate 300 mg/ (Sodium Chloride) 52 mls @ 52 mls/hr IVPB Q8 [facility] PRN Reason: Protocol Last Admin: 06/21/17 16:22 Dose: 52 mls/hr Piperacillin Sod/Tazobactam (Sod 4.5 gm/ Sodium Chloride) 100 mls @ 100 mls/hr IVPB Q6 [facility] PRN Reason: Protocol Last Admin: 06/21/17 16:22 Dose: 100 mls/hr Insulin Human Regular (Humulin R) 0 units SC ACCU-CHECK [facility] PRN Reason: Protocol Last Admin: 06/21/17 16:31 Dose: 6 units Lactobacillus Acidophilus (Bacid Acidophilus) 1 cap PO BID [facility] Last Admin: 06/21/17 16:21 Dose: 1 cap Magnesium Hydroxide (Milk Of Magnesia) 30 ml PO DAILY PRN PRN Reason: Constipation Methylprednisolone (Solu-Medrol) 20 mg IVP QID [facility] Last Admin: 06/21/17 16:23 Dose: 20 mg Metolazone (Zaroxolyn) 2.5 mg PO DAILY [facility] Last Admin: 06/21/17 10:36 Dose: 2.5 mg Nitroglycerin (Nitrostat Sl Tab) 0.4 mg SL Q5M PRN PRN Reason: Other Last Admin: 06/21/17 06:36 Dose: 0.4 mg Pantoprazole Sodium (Protonix Ec Tab) 40 mg PO DAILY [facility] Last Admin: 06/21/17 10:35 Dose: 40 mg Rivaroxaban (Xarelto) 15 mg PO DAILY [facility] PRN Reason: Protocol Last Admin: 06/21/17 10:34 Dose: 15 mg Sitagliptin Phosphate (Januvia) 50 mg PO DAILY [facility] Last Admin: 06/21/17 10:34 Dose: 50 mg Tobramycin Sulfate (Tobrex 0.3% Ophth Soln) 1 drop OU TID [facility] Last Admin: 06/21/17 16:23 Dose: Not Given Valsartan (Diovan) 160 mg PO DAILY [facility] Last Admin: 06/21/17 10:34 Dose: 160 mg Physical Exam - Constitutional Appears: Non-toxic - Head Exam Head Exam: NORMAL INSPECTION - Eye Exam Eye Exam: Normal appearance - ENT Exam ENT Exam: Mucous Membranes Dry - Neck Exam Neck exam: Positive for: Full Rom - Respiratory Exam Respiratory Exam: Decreased Breath Sounds - Cardiovascular Exam Cardiovascular Exam: REGULAR RHYTHM - GI/Abdominal Exam GI & Abdominal Exam: Normal Bowel Sounds - Rectal Exam Rectal Exam: Deferred - Extremities Exam Extremities exam: Negative for: pedal edema - Back Exam Back exam: NORMAL INSPECTION - Neurological Exam Neurological exam: Alert, Oriented x3 - Psychiatric Exam Psychiatric exam: Normal Affect - Skin Skin Exam: Normal Color Results - Vital Signs Recent Vital Signs: Last Vital Signs Temp 98.4 F 06/21/17 20:00 Pulse 63 06/21/17 20:00 Resp 18 06/21/17 20:00 BP 124/70 06/21/17 20:00 Pulse Ox 99 06/21/17 20:00 - Labs Result Diagrams: 06/23/17 06:00 06/24/17 06:00 Labs: Laboratory Results - last 24 hr 06/20/17 06/20/17 06/20/17 22:50 23:10 23:20 WBC RBC Hgb Hct MCV MCH MCHC RDW Plt Count MPV Neut % (Auto) Lymph % (Auto) [place] % (Auto) Eos % (Auto) Baso % (Auto) Neut # Lymph # [place] # Eos # Baso # Neutrophils % (Manual) Band Neutrophils % Lymphocytes % (Manual) Monocytes % (Manual) Platelet Estimate Anisocytosis (manual) Ovalocytes Acanthocytes (Spur) pO2 70 H VBG pH 7.51 H VBG pCO2 56 VBG HCO3 39.3 VBG Total CO2 46.4 H VBG O2 Sat (Calc) 99.9 H VBG Base Excess 18.5 H VBG Potassium 4.4 Sodium 142.0 Chloride 99.0 Glucose 253 H Lactate 2.7 H FiO2 21.0 Potassium Carbon Dioxide Anion Gap BUN Creatinine Est GFR ( Amer) Est GFR (Non-Af Amer) POC Glucose (mg/dL) 255 H Random Glucose Serum Osmolality Calcium Phosphorus Magnesium Total Bilirubin AST ALT Alkaline Phosphatase Troponin I NT-Pro-B Natriuret Pep Total Protein Albumin Globulin Albumin/Globulin Ratio Venous Blood Potassium 4.4 Urine Color Urine Clarity Urine pH Ur Specific Pierson Urine Protein Urine Glucose (UA) Urine Ketones Urine Blood Urine Nitrate Urine Bilirubin Urine Urobilinogen Ur Leukocyte Esterase Urine RBC (Auto) Urine Microscopic WBC Ur Squamous Epith Cells Urine Bacteria Hyaline Casts Urine Yeast (Budding) Digoxin Blood Type Cancelled Antibody Screen Cancelled BBK History Checked Cancelled 06/20/17 06/20/17 06/20/17 23:27 23:27 23:27 WBC 20.7 H D RBC 3.42 L Hgb 10.2 L Hct 31.6 L MCV 92.5 MCH 29.7 MCHC 32.1 L RDW 18.8 H Plt Count 258 MPV 11.5 Neut % (Auto) 90.6 H Lymph % (Auto) 5.1 L [place] % (Auto) 3.9 Eos % (Auto) 0.0 Baso % (Auto) 0.4 Neut # 18.7 H Lymph # 1.1 [place] # 0.8 Eos # 0.0 Baso # 0.1 Neutrophils % (Manual) 88 H Band Neutrophils % 2 Lymphocytes % (Manual) 6 L Monocytes % (Manual) 4 Platelet Estimate Normal Anisocytosis (manual) Slight Ovalocytes Slight Acanthocytes (Spur) Slight pO2 VBG pH VBG pCO2 VBG HCO3 VBG Total CO2 VBG O2 Sat (Calc) VBG Base Excess VBG Potassium Sodium 141 Chloride 95 L Glucose Lactate FiO2 Potassium 4.3 Carbon Dioxide 38 H Anion Gap 12 BUN 73 H Creatinine 0.8 Est GFR ( Amer) > 60 Est GFR (Non-Af Amer) > 60 POC Glucose (mg/dL) Random Glucose 223 H Serum Osmolality 327 H Calcium 9.5 Phosphorus 3.4 Magnesium 2.3 Total Bilirubin 1.8 H AST 141 H D ALT 56 H Alkaline Phosphatase 83 Troponin I 0.5600 H* NT-Pro-B Natriuret Pep 39335 H Total Protein 6.4 Albumin 3.7 Globulin 2.7 Albumin/Globulin Ratio 1.4 Venous Blood Potassium Urine Color Urine Clarity Urine pH Ur Specific [place] Urine Protein Urine Glucose (UA) Urine Ketones Urine Blood Urine Nitrate Urine Bilirubin Urine Urobilinogen Ur Leukocyte Esterase Urine RBC (Auto) Urine Microscopic WBC Ur Squamous Epith Cells Urine Bacteria Hyaline Casts Urine Yeast (Budding) Digoxin Blood Type Antibody Screen BBK History Checked 06/20/17 06/21/17 06/21/17 23:27 00:05 00:13 WBC RBC Hgb Hct MCV MCH MCHC RDW Plt Count MPV Neut % (Auto) Lymph % (Auto) [place] % (Auto) Eos % (Auto) Baso % (Auto) Neut # Lymph # [place] # Eos # Baso # Neutrophils % (Manual) Band Neutrophils % Lymphocytes % (Manual) Monocytes % (Manual) Platelet Estimate Anisocytosis (manual) Ovalocytes Acanthocytes (Spur) pO2 VBG pH VBG pCO2 VBG HCO3 VBG Total CO2 VBG O2 Sat (Calc) VBG Base Excess VBG Potassium Sodium Chloride Glucose Lactate FiO2 Potassium 2.9 L Carbon Dioxide Anion Gap BUN Creatinine Est GFR ( Amer) Est GFR (Non-Af Amer) POC Glucose (mg/dL) Random Glucose Serum Osmolality Calcium Phosphorus Magnesium Total Bilirubin AST ALT Alkaline Phosphatase Troponin I NT-Pro-B Natriuret Pep Total Protein Albumin Globulin Albumin/Globulin Ratio Venous Blood Potassium Urine Color Urine Clarity Urine pH Ur Specific [place] Urine Protein Urine Glucose (UA) Urine Ketones Urine Blood Urine Nitrate Urine Bilirubin Urine Urobilinogen Ur Leukocyte Esterase Urine RBC (Auto) Urine Microscopic WBC Ur Squamous Epith Cells Urine Bacteria Hyaline Casts Urine Yeast (Budding) Digoxin 1.2 Blood Type AB POSITIVE Antibody Screen Negative BBK History Checked Patient has bt 06/21/17 06/21/17 06/21/17 00:46 04:50 04:52 WBC RBC Hgb Hct MCV MCH MCHC RDW Plt Count MPV Neut % (Auto) Lymph % (Auto) [place] % (Auto) Eos % (Auto) Baso % (Auto) Neut # Lymph # [place] # Eos # Baso # Neutrophils % (Manual) Band Neutrophils % Lymphocytes % (Manual) Monocytes % (Manual) Platelet Estimate Anisocytosis (manual) Ovalocytes Acanthocytes (Spur) pO2 VBG pH VBG pCO2 VBG HCO3 VBG Total CO2 VBG O2 Sat (Calc) VBG Base Excess VBG Potassium Sodium Chloride Glucose Lactate FiO2 Potassium Carbon Dioxide Anion Gap BUN Creatinine Est GFR ( Amer) Est GFR (Non-Af Amer) POC Glucose (mg/dL) 140 H Random Glucose Serum Osmolality Calcium Phosphorus Magnesium Total Bilirubin AST ALT Alkaline Phosphatase Troponin I 0.4970 H* NT-Pro-B Natriuret Pep Total Protein Albumin Globulin Albumin/Globulin Ratio Venous Blood Potassium Urine Color Yellow Urine Clarity Cloudy Urine pH 6.0 Ur Specific [place]erson 1.016 Urine Protein 30 Urine Glucose (UA) Neg Urine Ketones Negative Urine Blood Moderate Urine Nitrate Negative Urine Bilirubin Negative Urine Urobilinogen 0.2-1.0 Ur Leukocyte Esterase Large Urine RBC (Auto) 16 H Urine Microscopic WBC 92 H Ur Squamous Epith Cells 3 Urine Bacteria Rare Hyaline Casts 3-5 H Urine Yeast (Budding) Occ H Digoxin Blood Type Antibody Screen BBK History Checked 06/21/17 06/21/17 06/21/17 08:35 08:35 11:26 WBC 21.3 H RBC 3.36 L Hgb 9.8 L Hct 31.4 L MCV 93.4 MCH 29.2 MCHC 31.2 L RDW 18.7 H Plt Count 200 MPV Neut % (Auto) Lymph % (Auto) [place] % (Auto) Eos % (Auto) Baso % (Auto) Neut # Lymph # [place] # Eos # Baso # Neutrophils % (Manual) Band Neutrophils % Lymphocytes % (Manual) Monocytes % (Manual) Platelet Estimate Anisocytosis (manual) Ovalocytes Acanthocytes (Spur) pO2 VBG pH VBG pCO2 VBG HCO3 VBG Total CO2 VBG O2 Sat (Calc) VBG Base Excess VBG Potassium Sodium 145 Chloride 98 Glucose Lactate FiO2 Potassium 3.6 Carbon Dioxide 46 H* D Anion Gap 5 L BUN 63 H Creatinine 0.7 Est GFR ( Amer) > 60 Est GFR (Non-Af Amer) > 60 POC Glucose (mg/dL) 155 H Random Glucose 128 H Serum Osmolality Calcium 8.9 Phosphorus Magnesium Total Bilirubin AST ALT Alkaline Phosphatase Troponin I NT-Pro-B Natriuret Pep Total Protein Albumin Globulin Albumin/Globulin Ratio Venous Blood Potassium Urine Color Urine Clarity Urine pH Ur Specific [place]erson Urine Protein Urine Glucose (UA) Urine Ketones Urine Blood Urine Nitrate Urine Bilirubin Urine Urobilinogen Ur Leukocyte Esterase Urine RBC (Auto) Urine Microscopic WBC Ur Squamous Epith Cells Urine Bacteria Hyaline Casts Urine Yeast (Budding) Digoxin Blood Type Antibody Screen BBK History Checked 06/21/17 06/21/17 14:45 16:10 WBC RBC Hgb Hct MCV MCH MCHC RDW Plt Count MPV Neut % (Auto) Lymph % (Auto) [place] % (Auto) Eos % (Auto) Baso % (Auto) Neut # Lymph # [place] # Eos # Baso # Neutrophils % (Manual) Band Neutrophils % Lymphocytes % (Manual) Monocytes % (Manual) Platelet Estimate Anisocytosis (manual) Ovalocytes Acanthocytes (Spur) pO2 VBG pH VBG pCO2 VBG HCO3 VBG Total CO2 VBG O2 Sat (Calc) VBG Base Excess VBG Potassium Sodium Chloride Glucose Lactate FiO2 Potassium Carbon Dioxide Anion Gap BUN Creatinine Est GFR ( Amer) Est GFR (Non-Af Amer) POC Glucose (mg/dL) 285 H Random Glucose Serum Osmolality Calcium Phosphorus Magnesium Total Bilirubin AST ALT Alkaline Phosphatase Troponin I 0.3670 H* NT-Pro-B Natriuret Pep Total Protein Albumin Globulin Albumin/Globulin Ratio Venous Blood Potassium Urine Color Urine Clarity Urine pH Ur Specific [place] Urine Protein Urine Glucose (UA) Urine Ketones Urine Blood Urine Nitrate Urine Bilirubin Urine Urobilinogen Ur Leukocyte Esterase Urine RBC (Auto) Urine Microscopic WBC Ur Squamous Epith Cells Urine Bacteria Hyaline Casts Urine Yeast (Budding) Digoxin Blood Type Antibody Screen BBK History Checked - EKG Data EKG Interpreted by: Myself Assessment & Plan (1) CAD (coronary artery disease) Assessment and Plan: patient has chronic stable CAD. The patient has elevated troponin, however there are no cliical sings of angina or myocardial ischemia. will continue conservative therapy. Status: Chronic Priority: Medium (2) HTN (hypertension) Assessment and Plan: blood pressure control Status: Chronic Priority: Medium (3) COPD (chronic obstructive pulmonary disease) Assessment and Plan: as per Dr Lawrence and Dr Burrows Status: Chronic (4) Atrial fibrillation Assessment and Plan: medical therapy. steve Moise Status: Chronic
[2017-06-22] MEDS: Clindamycin 300 MG in Sodium Chloride 0.9% 50 ML IVPB SCH ×3 (00:13→16:49)
[2017-06-22] MEDS: Albuterol-Ipratrop 3 mg / 0.5 (3 ml) UD INH SCH ×7 (00:43→23:35)
[2017-06-22] MEDS: Piperacillin/Tazobact 4.5 GM in Sodium Chloride 0.9% 100 ML IVPB SCH ×4 (04:16→21:04)
[2017-06-22] MEDS: Insulin Regular 100 units/ml SC SCH ×4 (04:18→22:55)
[2017-06-22] MEDS: Lactobacillus Acidophilus 500 MU Cap PO SCH ×2 (08:25→16:49)
[2017-06-22] MEDS: Digoxin 125 mcg (0.125 mg) Tab PO SCH (08:26)
[2017-06-22] MEDS: metOLazone 2.5 MG TAB PO SCH (08:27)
[2017-06-22] MEDS: MethylPREDNISolone 40 mg Vial IVP SCH ×2 (08:27→16:51)
[2017-06-22] MEDS: Tobramycin 0.3% OPHT SOLN OU SCH ×3 (08:27→16:56)
--- NOTE | 2017-06-22 08:31 | PQF PNEUMO ---
This form is a permanent part of the medical record 06/22/17 Dr Lawrence, Patient with a recent discharge is admitted for weakness and abnormal labs. Noted to have elevated troponin and BNP. CT chest with increasing RUL infiltrate and new SANDRA infiltrate. Treated with Clindamycin and Zosyn. Diagnoses include: HCAP, CHF and COPD exacerbation with elevated troponins. Please specify type of pneumonia in the progress notes after workup if known. Clarification of your documentation is requested to better reflect the severity of illness and intensity of treatment of your patient. Indicators present [x] Documented diagnosis of pneumonia [x] X-ray findings: + CT Chest [] Positive Sputum cultures [] Cough w/ fever [x] Abnormal lungs sounds [] Poor gag reflex [] Speech consults/swallow evaluation [] Vent dependence [] Other: [] Location in the medical record that reflects the above clinical findings: [] Treatment Provided: [x] PHYSICIAN'S RESPONSE Based on your medical judgment of the clinical indicators outlined above, are you treating this patient for a known or suspected: [] Aspiration pneumonia [] Viral pneumonia [] Bacterial pneumonia Please specify organism if known [] Bronchopneumonia [] Interstitial pneumonia [] Other, please indicate [] If Unable to Determine, please check the box, sign and date. Note: CAP, HAP, and HCAP indicate where the pneumonia was acquired, not a specific type. Present On Admission (POA) Indicator: [] Present at the time of admission [] Not present at the time of admission [] Clinically Undetermined In responding to this query, please exercise your independent professional judgment. The fact that a question is asked does not imply that any particular answer is desired or expected. Thank you for your clarification on this documentation. If you have any questions please call:[phone] Thank you, Brenda Hendrickson RN CDMP MTDD
[2017-06-22] MEDS: Pantoprazole 40 mg EC Tab PO SCH (08:37)
[2017-06-22 10:15] LABS: HEMATOCRIT 28.5 % (34.0-47.0); MEAN CELL VOLUME 93.3 fl (81.0-99.0); MEAN CORPUSCULAR HEMOGLOBIN 29.6 pg (27.0-31.0); MEAN CORPUSCULAR HGB CONC 31.7 g/dL (33.0-37.0); RED CELL DISTRIBUTION WIDTH 18.8 % (11.5-14.5); WHITE BLOOD COUNT 17.8 K/uL (4.8-10.8)
[2017-06-22 10:44] LABS: BLOOD UREA NITROGEN 58 mg/dl (7-17); CALCIUM 8.6 mg/dL (8.4-10.2); CHLORIDE 90 mmol/L (98-107); GFR AFRICAN-AMERICAN > 60; GLUCOSE,RANDOM 275 mg/dL (65-105); POTASSIUM 2.7 MMOL/L (3.6-5.0); SODIUM 143 mmol/l (132-148)
[2017-06-22 10:57] LABS: CARBON DIOXIDE 42 mmol/L (22-30)
--- NOTE | 2017-06-22 11:43 | CP.PCM.PN ---
<Benedict Santana - Last Filed: 06/22/17 11:54> Subjective - Date & Time of Evaluation Date of Evaluation: 06/22/17 Time of Evaluation: 11:41 - Subjective Subjective: - Patient is seen and examined at bedside with Dr. Lawrence. Patient appears to be doing well. Less labored breathing noted. No overnight events reported. Objective - Vital Signs/Intake and Output Vital Signs (last 24 hours): Temp Pulse Resp BP Pulse Ox 97.6 F 67 18 118/59 L 99 06/22/17 08:13 06/22/17 08:13 06/22/17 08:13 06/22/17 08:26 06/22/17 08:13 - Medications Medications: Current Medications Acetaminophen (Tylenol 325mg Tab) 650 mg PO Q6 PRN PRN Reason: Pain, Mild (1-3) Acetaminophen (Tylenol 325mg Tab) 650 mg PO Q4 PRN PRN Reason: Fever >100.4 F, headache Albuterol/Ipratropium (Duoneb 3 Mg/0.5 Mg (3 Ml) Ud) 3 ml INH RQ4 [facility] Last Admin: 06/22/17 07:42 Dose: 3 ml Albuterol/Ipratropium (Duoneb 3 Mg/0.5 Mg (3 Ml) Ud) 3 ml IH Q6H PRN PRN Reason: Shortness of Breath Benzonatate (Tessalon Perles) 100 mg PO TID PRN PRN Reason: Cough Digoxin (Lanoxin) 0.125 mg PO DAILY [facility] Last Admin: 06/22/17 08:26 Dose: 0.125 mg Ferrous Sulfate (Feosol) 325 mg PO DAILY [facility] Last Admin: 06/22/17 08:25 Dose: 325 mg Furosemide (Lasix) 40 mg IVP BID [facility] Last Admin: 06/22/17 08:26 Dose: 40 mg Gabapentin (Neurontin) 300 mg PO HS [facility] Last Admin: 06/21/17 21:11 Dose: 300 mg Clindamycin Phosphate 300 mg/ (Sodium Chloride) 52 mls @ 52 mls/hr IVPB Q8 [facility] PRN Reason: Protocol Last Admin: 06/22/17 08:24 Dose: 52 mls/hr Piperacillin Sod/Tazobactam (Sod 4.5 gm/ Sodium Chloride) 100 mls @ 100 mls/hr IVPB Q6 [facility] PRN Reason: Protocol Last Admin: 06/22/17 09:31 Dose: 100 mls/hr Insulin Human Regular (Humulin R) 0 units SC ACCU-CHECK [facility] PRN Reason: Protocol Last Admin: 06/22/17 11:39 Dose: 8 units Lactobacillus Acidophilus (Bacid Acidophilus) 1 cap PO BID [facility] Last Admin: 06/22/17 08:25 Dose: 1 cap Magnesium Hydroxide (Milk Of Magnesia) 30 ml PO DAILY PRN PRN Reason: Constipation Methylprednisolone (Solu-Medrol) 20 mg IVP QID [facility] Last Admin: 06/22/17 08:27 Dose: 20 mg Metolazone (Zaroxolyn) 2.5 mg PO DAILY [facility] Last Admin: 06/22/17 08:27 Dose: 2.5 mg Nitroglycerin (Nitrostat Sl Tab) 0.4 mg SL Q5M PRN PRN Reason: Other Last Admin: 06/21/17 06:36 Dose: 0.4 mg Pantoprazole Sodium (Protonix Ec Tab) 40 mg PO DAILY [facility] Last Admin: 06/22/17 08:37 Dose: 40 mg Rivaroxaban (Xarelto) 15 mg PO DAILY [facility] PRN Reason: Protocol Last Admin: 06/22/17 08:25 Dose: 15 mg Sitagliptin Phosphate (Januvia) 50 mg PO DAILY [facility] Last Admin: 06/22/17 09:32 Dose: 50 mg Tobramycin Sulfate (Tobrex 0.3% Ophth Soln) 1 drop OU TID [facility] Last Admin: 06/22/17 08:27 Dose: Not Given Valsartan (Diovan) 160 mg PO DAILY [facility] Last Admin: 06/22/17 08:27 Dose: 160 mg - Labs Labs: 06/22/17 09:55 06/22/17 09:55 - Constitutional Appears: No Acute Distress - Head Exam Head Exam: NORMAL INSPECTION - Eye Exam Eye Exam: Normal appearance - Respiratory Exam Respiratory Exam: Rales, Rhonchi, Wheezes - Cardiovascular Exam Cardiovascular Exam: REGULAR RHYTHM, +S1, +S2 - GI/Abdominal Exam GI & Abdominal Exam: Soft, Normal Bowel Sounds. absent: Tenderness - Extremities Exam Extremities Exam: Normal Inspection - Neurological Exam Neurological Exam: Alert, Awake, CN II-XII Intact, Oriented x3 - Skin Skin Exam: Normal Color, Warm Assessment and Plan - Assessment and Plan (Free Text) Assessment: 1) Pnuemonia : HCAP vs Aspiration - X ray showed persistent right superior paramediastianal opacity, questionable significance, small right pleural effusion - WBC trending down : today 17.8 - Order CT - Pulm consulted - ID consulted - Zosyn and clindamycin 2) COPD exacerbation - duonebs 3mL Inh Q4h - Methylprednisolone 40 mg Q8 3) Left sided acute on chronic diastolic dysfunction with preserved EF. - Troponin x 2 positive - previous echo reviewed : EF : 65- 75 % - [place] [facility]: Dr. Jean consulted - last echo 05/15/2017 showed EF 60-65%, severe tricuspid regurgitation, severe pulmonary hypertension - Lasix 40 mg BID ordered today 4) Afib - home medication digoxin and Xarelto - has atrial sensed ventricular paced pacemaker 5) DVT prophylaxis -SCD - xaralto <Juan A Lawrence - Last Filed: 07/01/17 22:33> Objective - Vital Signs/Intake and Output Vital Signs (last 24 hours): Temp Pulse Resp BP Pulse Ox 98.1 F 77 18 127/61 100 07/01/17 20:09 07/01/17 20:09 07/01/17 20:09 07/01/17 20:09 07/01/17 20:09 Intake and Output: 07/01/17 07/02/17 18:59 06:59 Intake Total 900 Output Total 1600 Balance -700 - Medications Medications: Current Medications Acetaminophen (Tylenol 325mg Tab) 650 mg PO Q6 PRN PRN Reason: Pain, Mild (1-3) Last Admin: 06/29/17 16:37 Dose: 650 mg Acetaminophen (Tylenol 325mg Tab) 650 mg PO Q4 PRN PRN Reason: Fever >100.4 F, headache Albuterol/Ipratropium (Duoneb 3 Mg/0.5 Mg (3 Ml) Ud) 3 ml INH RQ4 [facility] Last Admin: 07/01/17 19:13 Dose: 3 ml Albuterol/Ipratropium (Duoneb 3 Mg/0.5 Mg (3 Ml) Ud) 3 ml IH Q6H PRN PRN Reason: Shortness of Breath Benzonatate (Tessalon Perles) 100 mg PO TID PRN PRN Reason: Cough Bismuth Subsalicylate (Pepto-Bismol) 262 mg PO TID [facility] Last Admin: 07/01/17 17:59 Dose: Not Given Digoxin (Lanoxin) 0.125 mg PO DAILY [facility] Last Admin: 07/01/17 09:56 Dose: 0.125 mg Ferrous Sulfate (Feosol) 325 mg PO DAILY [facility] Last Admin: 07/01/17 09:55 Dose: 325 mg Fluconazole (Diflucan) 100 mg PO DAILY [facility] PRN Reason: Protocol Last Admin: 07/01/17 09:54 Dose: 100 mg Furosemide (Lasix) 40 mg IVP DAILY [facility] Last Admin: 07/01/17 09:57 Dose: 40 mg Gabapentin (Neurontin) 300 mg PO HS [facility] Last Admin: 07/01/17 21:01 Dose: 300 mg Clindamycin Phosphate 300 mg/ (Sodium Chloride) 52 mls @ 52 mls/hr IVPB Q8 [facility] PRN Reason: Protocol Last Admin: 07/01/17 17:27 Dose: 52 mls/hr Meropenem 500 mg/ Sodium (Chloride) 100 mls @ 100 mls/hr IVPB Q8 [facility] PRN Reason: Protocol Last Admin: 07/01/17 17:27 Dose: 100 mls/hr Insulin Human Regular (Humulin R) 0 units SC ACCU-CHECK [facility] PRN Reason: Protocol Last Admin: 07/01/17 22:11 Dose: Not Given Lactobacillus Acidophilus (Bacid Acidophilus) 1 cap PO BID [facility] Last Admin: 07/01/17 17:27 Dose: 1 cap Magnesium Hydroxide (Milk Of Magnesia) 30 ml PO DAILY PRN PRN Reason: Constipation Methylprednisolone (Solu-Medrol) 30 mg IVP Q12 [facility] Last Admin: 07/01/17 21:02 Dose: 30 mg Metolazone (Zaroxolyn) 2.5 mg PO DAILY [facility] Last Admin: 07/01/17 10:00 Dose: 2.5 mg Nitroglycerin (Nitrostat Sl Tab) 0.4 mg SL Q5M PRN PRN Reason: Other Last Admin: 06/21/17 06:36 Dose: 0.4 mg Nystatin (Nystatin Oral Susp) 5 ml PO QID [facility] Last Admin: 07/01/17 21:01 Dose: 5 ml Pantoprazole Sodium (Protonix Ec Tab) 40 mg PO DAILY [facility] Last Admin: 07/01/17 09:59 Dose: 40 mg Potassium Chloride (K-Dur 20 Meq Er Tab) 40 meq PO DAILY [facility] Last Admin: 07/01/17 09:56 Dose: 40 meq Rivaroxaban (Xarelto) 15 mg PO DAILY [facility] PRN Reason: Protocol Last Admin: 07/01/17 10:00 Dose: 15 mg Sitagliptin Phosphate (Januvia) 50 mg PO DAILY [facility] Last Admin: 07/01/17 09:56 Dose: 50 mg Tobramycin Sulfate (Tobrex 0.3% Oph Soln) 1 drop OU TID [facility] Last Admin: 07/01/17 17:21 Dose: Not Given Valsartan (Diovan) 160 mg PO DAILY [facility] Last Admin: 07/01/17 09:55 Dose: 160 mg - Labs Labs: 06/30/17 06:30 06/30/17 07:30 Assessment and Plan - Assessment and Plan (Free Text) Plan: I was present during evalaution and discussed with Dr Santana re plans of care and treatment. Juan A Lawrence M.D.
[2017-06-22] MEDS: Potassium Chloride 20 mEq ER Tab PO SCH (12:43)
[2017-06-22] MEDS: Potassium CL 10 MEQ/50 ML 50 ML IVPB SCH ×3 (12:44→15:04)
--- NOTE | 2017-06-22 13:09 | CP.PCM.PN ---
Subjective - Date & Time of Evaluation Date of Evaluation: 06/22/17 Time of Evaluation: 11:30 - Subjective Subjective: F/U HCAP Pt with cough, bringing up phlegms, less chest congestion. Objective - Vital Signs/Intake and Output Vital Signs (last 24 hours): Temp Pulse Resp BP Pulse Ox 99.9 F H 105 H 18 99/62 L 90 L 06/22/17 12:29 06/22/17 12:29 06/22/17 12:29 06/22/17 12:29 06/22/17 12:29 - Medications Medications: Current Medications Acetaminophen (Tylenol 325mg Tab) 650 mg PO Q6 PRN PRN Reason: Pain, Mild (1-3) Acetaminophen (Tylenol 325mg Tab) 650 mg PO Q4 PRN PRN Reason: Fever >100.4 F, headache Albuterol/Ipratropium (Duoneb 3 Mg/0.5 Mg (3 Ml) Ud) 3 ml INH RQ4 [facility] Last Admin: 06/22/17 11:47 Dose: 3 ml Albuterol/Ipratropium (Duoneb 3 Mg/0.5 Mg (3 Ml) Ud) 3 ml IH Q6H PRN PRN Reason: Shortness of Breath Benzonatate (Tessalon Perles) 100 mg PO TID PRN PRN Reason: Cough Digoxin (Lanoxin) 0.125 mg PO DAILY [facility] Last Admin: 06/22/17 08:26 Dose: 0.125 mg Ferrous Sulfate (Feosol) 325 mg PO DAILY [facility] Last Admin: 06/22/17 08:25 Dose: 325 mg Furosemide (Lasix) 40 mg IVP BID [facility] Last Admin: 06/22/17 08:26 Dose: 40 mg Gabapentin (Neurontin) 300 mg PO HS [facility] Last Admin: 06/21/17 21:11 Dose: 300 mg Clindamycin Phosphate 300 mg/ (Sodium Chloride) 52 mls @ 52 mls/hr IVPB Q8 [facility] PRN Reason: Protocol Last Admin: 06/22/17 08:24 Dose: 52 mls/hr Piperacillin Sod/Tazobactam (Sod 4.5 gm/ Sodium Chloride) 100 mls @ 100 mls/hr IVPB Q6 [facility] PRN Reason: Protocol Last Admin: 06/22/17 09:31 Dose: 100 mls/hr Potassium Chloride (Potassium Cl 10meq/50ml Sterile Water) 50 mls @ 50 mls/hr IVPB Q1 [facility] Stop: 06/22/17 15:59 Last Admin: 06/22/17 12:44 Dose: 50 mls/hr Insulin Human Regular (Humulin R) 0 units SC ACCU-CHECK [facility] PRN Reason: Protocol Last Admin: 06/22/17 11:39 Dose: 8 units Lactobacillus Acidophilus (Bacid Acidophilus) 1 cap PO BID [facility] Last Admin: 06/22/17 08:25 Dose: 1 cap Magnesium Hydroxide (Milk Of Magnesia) 30 ml PO DAILY PRN PRN Reason: Constipation Methylprednisolone (Solu-Medrol) 40 mg IVP Q8 [facility] Metolazone (Zaroxolyn) 2.5 mg PO DAILY [facility] Last Admin: 06/22/17 08:27 Dose: 2.5 mg Nitroglycerin (Nitrostat Sl Tab) 0.4 mg SL Q5M PRN PRN Reason: Other Last Admin: 06/21/17 06:36 Dose: 0.4 mg Pantoprazole Sodium (Protonix Ec Tab) 40 mg PO DAILY [facility] Last Admin: 06/22/17 08:37 Dose: 40 mg Potassium Chloride (K-Dur 20 Meq Er Tab) 20 meq PO DAILY [facility] Last Admin: 06/22/17 12:43 Dose: 20 meq Rivaroxaban (Xarelto) 15 mg PO DAILY [facility] PRN Reason: Protocol Last Admin: 06/22/17 08:25 Dose: 15 mg Sitagliptin Phosphate (Januvia) 50 mg PO DAILY [facility] Last Admin: 06/22/17 09:32 Dose: 50 mg Tobramycin Sulfate (Tobrex 0.3% Ophth Soln) 1 drop OU TID [facility] Last Admin: 06/22/17 12:47 Dose: Not Given Valsartan (Diovan) 160 mg PO DAILY [facility] Last Admin: 06/22/17 08:27 Dose: 160 mg - Labs Labs: 06/22/17 09:55 06/22/17 09:55 - Constitutional Appears: No Acute Distress, Chronically Ill - Eye Exam Eye Exam: PERRL - ENT Exam ENT Exam: Normal Exam - Neck Exam Neck Exam: Normal Inspection - Respiratory Exam Respiratory Exam: Decreased Breath Sounds (b/l), Rhonchi (scattered) Additional comments: Sternotomy scar. L PPM - Cardiovascular Exam Cardiovascular Exam: REGULAR RHYTHM, Murmur (systolic3/6 LSB [place] radiated to axilla) - GI/Abdominal Exam GI & Abdominal Exam: Soft, Normal Bowel Sounds - Extremities Exam Additional comments: Edema 1+ non pitting L/E - Back Exam Back Exam: NORMAL INSPECTION - Neurological Exam Neurological Exam: Alert Additional comments: OX2, generalized weakness. - Psychiatric Exam Psychiatric exam: Normal Mood - Skin Skin Exam: Warm Assessment and Plan (1) HCAP (healthcare-associated pneumonia) Status: Acute (2) COPD (chronic obstructive pulmonary disease) Status: Chronic (3) Pulmonary hypertension Status: Chronic - Assessment and Plan (Free Text) Plan: Continue Zosyn, Clinda, Solumedrol, Duoneb and rest of Tx.
[2017-06-23] MEDS: MethylPREDNISolone 40 mg Vial IVP SCH ×3 (01:00→17:43)
[2017-06-23] MEDS: Clindamycin 300 MG in Sodium Chloride 0.9% 50 ML IVPB SCH ×3 (01:00→17:43)
[2017-06-23] MEDS: Albuterol-Ipratrop 3 mg / 0.5 (3 ml) UD INH SCH ×6 (04:56→23:34)
[2017-06-23] MEDS: Piperacillin/Tazobact 4.5 GM in Sodium Chloride 0.9% 100 ML IVPB SCH ×4 (06:42→21:30)
[2017-06-23] MEDS: Insulin Regular 100 units/ml SC SCH ×4 (06:45→23:00)
[2017-06-23 07:18] LABS: HEMATOCRIT 28.7 % (34.0-47.0); MEAN CELL VOLUME 94.7 fl (81.0-99.0); MEAN CORPUSCULAR HEMOGLOBIN 29.5 pg (27.0-31.0); MEAN CORPUSCULAR HGB CONC 31.2 g/dL (33.0-37.0); RED CELL DISTRIBUTION WIDTH 19.7 % (11.5-14.5); WHITE BLOOD COUNT 20.9 K/uL (4.8-10.8)
[2017-06-23 07:24] LABS: BLOOD UREA NITROGEN 55 mg/dl (7-17); CALCIUM 8.9 mg/dL (8.4-10.2); CHLORIDE 93 mmol/L (98-107); GFR AFRICAN-AMERICAN > 60; GLUCOSE,RANDOM 130 mg/dL (65-105); SODIUM 145 mmol/l (132-148)
[2017-06-23 07:42] LABS: CARBON DIOXIDE 47 mmol/L (22-30)
[2017-06-23] MEDS: Lactobacillus Acidophilus 500 MU Cap PO SCH ×2 (09:26→17:43)
[2017-06-23] MEDS: Potassium Chloride 20 mEq ER Tab PO SCH (09:33)
[2017-06-23] MEDS: Digoxin 125 mcg (0.125 mg) Tab PO SCH (09:33)
[2017-06-23] MEDS: Tobramycin 0.3% OPHT SOLN OU SCH ×3 (09:34→17:41)
[2017-06-23] MEDS: Pantoprazole 40 mg EC Tab PO SCH (09:34)
[2017-06-23] MEDS: metOLazone 2.5 MG TAB PO SCH (09:35)
--- NOTE | 2017-06-23 10:05 | CP.PCM.PN ---
Subjective - Date & Time of Evaluation Date of Evaluation: 06/23/17 Time of Evaluation: 10:05 - Subjective Subjective: Patient feels less SOB. Still with a lot of rales and rhonchi. Still gets winded easly Has some cough. WBC remains elevated Objective - Vital Signs/Intake and Output Vital Signs (last 24 hours): Temp Pulse Resp BP Pulse Ox 97.9 F 80 18 128/69 100 06/23/17 08:19 06/23/17 08:19 06/23/17 08:19 06/23/17 09:33 06/23/17 08:19 Intake and Output: 06/23/17 06/23/17 06:59 18:59 Intake Total 500 Output Total 500 Balance 0 - Medications Medications: Current Medications Acetaminophen (Tylenol 325mg Tab) 650 mg PO Q6 PRN PRN Reason: Pain, Mild (1-3) Acetaminophen (Tylenol 325mg Tab) 650 mg PO Q4 PRN PRN Reason: Fever >100.4 F, headache Albuterol/Ipratropium (Duoneb 3 Mg/0.5 Mg (3 Ml) Ud) 3 ml INH RQ4 [facility] Last Admin: 06/23/17 08:02 Dose: 3 ml Albuterol/Ipratropium (Duoneb 3 Mg/0.5 Mg (3 Ml) Ud) 3 ml IH Q6H PRN PRN Reason: Shortness of Breath Benzonatate (Tessalon Perles) 100 mg PO TID PRN PRN Reason: Cough Digoxin (Lanoxin) 0.125 mg PO DAILY [facility] Last Admin: 06/23/17 09:33 Dose: 0.125 mg Ferrous Sulfate (Feosol) 325 mg PO DAILY [facility] Last Admin: 06/23/17 09:36 Dose: 325 mg Furosemide (Lasix) 40 mg IVP BID [facility] Last Admin: 06/23/17 09:33 Dose: 40 mg Gabapentin (Neurontin) 300 mg PO HS [facility] Last Admin: 06/22/17 21:06 Dose: 300 mg Clindamycin Phosphate 300 mg/ (Sodium Chloride) 52 mls @ 52 mls/hr IVPB Q8 [facility] PRN Reason: Protocol Last Admin: 06/23/17 09:26 Dose: 52 mls/hr Piperacillin Sod/Tazobactam (Sod 4.5 gm/ Sodium Chloride) 100 mls @ 100 mls/hr IVPB Q6 [facility] PRN Reason: Protocol Last Admin: 06/23/17 09:35 Dose: 100 mls/hr Insulin Human Regular (Humulin R) 0 units SC ACCU-CHECK [facility] PRN Reason: Protocol Last Admin: 06/23/17 06:45 Dose: 2 units Lactobacillus Acidophilus (Bacid Acidophilus) 1 cap PO BID [facility] Last Admin: 06/23/17 09:26 Dose: 1 cap Magnesium Hydroxide (Milk Of Magnesia) 30 ml PO DAILY PRN PRN Reason: Constipation Methylprednisolone (Solu-Medrol) 40 mg IVP Q8 [facility] Last Admin: 06/23/17 09:34 Dose: 40 mg Metolazone (Zaroxolyn) 2.5 mg PO DAILY [facility] Last Admin: 06/23/17 09:35 Dose: 2.5 mg Nitroglycerin (Nitrostat Sl Tab) 0.4 mg SL Q5M PRN PRN Reason: Other Last Admin: 06/21/17 06:36 Dose: 0.4 mg Pantoprazole Sodium (Protonix Ec Tab) 40 mg PO DAILY [facility] Last Admin: 06/23/17 09:34 Dose: 40 mg Potassium Chloride (K-Dur 20 Meq Er Tab) 20 meq PO DAILY [facility] Last Admin: 06/23/17 09:33 Dose: 20 meq Rivaroxaban (Xarelto) 15 mg PO DAILY [facility] PRN Reason: Protocol Last Admin: 06/23/17 09:35 Dose: 15 mg Sitagliptin Phosphate (Januvia) 50 mg PO DAILY [facility] Last Admin: 06/23/17 09:32 Dose: 50 mg Tobramycin Sulfate (Tobrex 0.3% [facility]) 1 drop OU TID [facility] Last Admin: 06/23/17 09:34 Dose: Not Given Valsartan (Diovan) 160 mg PO DAILY [facility] Last Admin: 06/23/17 09:32 Dose: 160 mg - Labs Labs: 06/23/17 06:00 06/23/17 06:00 - Head Exam Head Exam: NORMAL INSPECTION - Eye Exam Eye Exam: Normal appearance - Respiratory Exam Respiratory Exam: Rales - Cardiovascular Exam Cardiovascular Exam: Irregular Rhythm - GI/Abdominal Exam GI & Abdominal Exam: Normal Bowel Sounds - Neurological Exam Neurological Exam: Awake, Oriented x3 Assessment and Plan (1) Pneumonia Status: Acute (2) Pulmonary hypertension Status: Chronic (3) Acute on chronic heart failure Status: Acute (4) Benign essential HTN Status: Acute (5) COPD exacerbation Status: Acute - Assessment and Plan (Free Text) Plan: Cont meds Cont tx Cont resp treatment.
--- NOTE | 2017-06-23 14:18 | CP.PCM.PN ---
Subjective - Date & Time of Evaluation Date of Evaluation: 06/23/17 Time of Evaluation: 14:35 - Subjective Subjective: F/U HCAP. Less cough, eating well as per family at bedsided. Objective - Vital Signs/Intake and Output Vital Signs (last 24 hours): Temp Pulse Resp BP Pulse Ox 97.8 F 61 18 133/52 L 100 06/23/17 13:00 06/23/17 13:00 06/23/17 13:00 06/23/17 13:00 06/23/17 13:00 Intake and Output: 06/23/17 06/23/17 06:59 18:59 Intake Total 500 Output Total 500 Balance 0 - Medications Medications: Current Medications Acetaminophen (Tylenol 325mg Tab) 650 mg PO Q6 PRN PRN Reason: Pain, Mild (1-3) Acetaminophen (Tylenol 325mg Tab) 650 mg PO Q4 PRN PRN Reason: Fever >100.4 F, headache Albuterol/Ipratropium (Duoneb 3 Mg/0.5 Mg (3 Ml) Ud) 3 ml INH RQ4 [facility] Last Admin: 06/23/17 11:19 Dose: 3 ml Albuterol/Ipratropium (Duoneb 3 Mg/0.5 Mg (3 Ml) Ud) 3 ml IH Q6H PRN PRN Reason: Shortness of Breath Benzonatate (Tessalon Perles) 100 mg PO TID PRN PRN Reason: Cough Digoxin (Lanoxin) 0.125 mg PO DAILY [facility] Last Admin: 06/23/17 09:33 Dose: 0.125 mg Ferrous Sulfate (Feosol) 325 mg PO DAILY [facility] Last Admin: 06/23/17 09:36 Dose: 325 mg Furosemide (Lasix) 40 mg IVP BID [facility] Last Admin: 06/23/17 09:33 Dose: 40 mg Gabapentin (Neurontin) 300 mg PO HS [facility] Last Admin: 06/22/17 21:06 Dose: 300 mg Clindamycin Phosphate 300 mg/ (Sodium Chloride) 52 mls @ 52 mls/hr IVPB Q8 [facility] PRN Reason: Protocol Last Admin: 06/23/17 09:26 Dose: 52 mls/hr Piperacillin Sod/Tazobactam (Sod 4.5 gm/ Sodium Chloride) 100 mls @ 100 mls/hr IVPB Q6 [facility] PRN Reason: Protocol Last Admin: 06/23/17 09:35 Dose: 100 mls/hr Insulin Human Regular (Humulin R) 0 units SC ACCU-CHECK [facility] PRN Reason: Protocol Last Admin: 06/23/17 12:34 Dose: 8 units Lactobacillus Acidophilus (Bacid Acidophilus) 1 cap PO BID [facility] Last Admin: 06/23/17 09:26 Dose: 1 cap Magnesium Hydroxide (Milk Of Magnesia) 30 ml PO DAILY PRN PRN Reason: Constipation Methylprednisolone (Solu-Medrol) 40 mg IVP Q8 [facility] Last Admin: 06/23/17 09:34 Dose: 40 mg Metolazone (Zaroxolyn) 2.5 mg PO DAILY [facility] Last Admin: 06/23/17 09:35 Dose: 2.5 mg Nitroglycerin (Nitrostat Sl Tab) 0.4 mg SL Q5M PRN PRN Reason: Other Last Admin: 06/21/17 06:36 Dose: 0.4 mg Pantoprazole Sodium (Protonix Ec Tab) 40 mg PO DAILY [facility] Last Admin: 06/23/17 09:34 Dose: 40 mg Potassium Chloride (K-Dur 20 Meq Er Tab) 20 meq PO DAILY [facility] Last Admin: 06/23/17 09:33 Dose: 20 meq Rivaroxaban (Xarelto) 15 mg PO DAILY [facility] PRN Reason: Protocol Last Admin: 06/23/17 09:35 Dose: 15 mg Sitagliptin Phosphate (Januvia) 50 mg PO DAILY [facility] Last Admin: 06/23/17 09:32 Dose: 50 mg Tobramycin Sulfate (Tobrex 0.3% Ophth Soln) 1 drop OU TID [facility] Last Admin: 06/23/17 12:35 Dose: Not Given Valsartan (Diovan) 160 mg PO DAILY [facility] Last Admin: 06/23/17 09:32 Dose: 160 mg - Labs Labs: 06/23/17 06:00 06/23/17 06:00 - Constitutional Appears: No Acute Distress, Chronically Ill - Head Exam Head Exam: NORMAL INSPECTION - Eye Exam Eye Exam: PERRL - ENT Exam ENT Exam: Normal Exam - Neck Exam Neck Exam: Normal Inspection - Respiratory Exam Respiratory Exam: Decreased Breath Sounds (b/l), Rhonchi (scattered) - Cardiovascular Exam Cardiovascular Exam: REGULAR RHYTHM, Murmur (systolic 3/6 LSB [place] radiated to Axilla.) - GI/Abdominal Exam GI & Abdominal Exam: Soft, Normal Bowel Sounds - Extremities Exam Additional comments: Edema L/E 1+ non pitting - Back Exam Back Exam: NORMAL INSPECTION - Neurological Exam Neurological Exam: Awake Additional comments: Ox2, generalized weakness. - Psychiatric Exam Psychiatric exam: Normal Mood - Skin Skin Exam: Warm Assessment and Plan (1) HCAP (healthcare-associated pneumonia) Status: Acute (2) COPD (chronic obstructive pulmonary disease) Status: Chronic (3) Pulmonary hypertension Status: Chronic - Assessment and Plan (Free Text) Plan: Continue current Tx.
[2017-06-23] MEDS ORDERED: Potassium Chloride 20 mEq ER Tab PO ONE (17:30)
[2017-06-24] MEDS: Clindamycin 300 MG in Sodium Chloride 0.9% 50 ML IVPB SCH ×3 (00:22→16:28)
[2017-06-24] MEDS: MethylPREDNISolone 40 mg Vial IVP SCH ×3 (00:24→16:29)
[2017-06-24] MEDS: Albuterol-Ipratrop 3 mg / 0.5 (3 ml) UD INH SCH ×5 (03:18→19:05)
[2017-06-24] MEDS: Piperacillin/Tazobact 4.5 GM in Sodium Chloride 0.9% 100 ML IVPB SCH ×4 (04:44→21:05)
[2017-06-24 07:47] LABS: BLOOD UREA NITROGEN 57 mg/dl (7-17); CALCIUM 8.9 mg/dL (8.4-10.2); CHLORIDE 91 mmol/L (98-107); GFR AFRICAN-AMERICAN > 60; GLUCOSE,RANDOM 172 mg/dL (65-105); POTASSIUM 3.3 MMOL/L (3.6-5.0); SODIUM 144 mmol/l (132-148)
[2017-06-24 07:58] LABS: CARBON DIOXIDE 47 mmol/L (22-30)
[2017-06-24] MEDS: Lactobacillus Acidophilus 500 MU Cap PO SCH ×2 (09:10→16:28)
[2017-06-24] MEDS: Insulin Regular 100 units/ml SC SCH ×5 (09:10→22:50)
[2017-06-24] MEDS: Digoxin 125 mcg (0.125 mg) Tab PO SCH (09:12)
[2017-06-24] MEDS: Potassium Chloride 20 mEq ER Tab PO SCH (09:12)
[2017-06-24] MEDS: Pantoprazole 40 mg EC Tab PO SCH (09:13)
[2017-06-24] MEDS: metOLazone 2.5 MG TAB PO SCH (09:14)
[2017-06-24] MEDS: Tobramycin 0.3% OPHT SOLN OU SCH ×3 (09:14→16:29)
[2017-06-24] MEDS ORDERED: Potassium Chloride 20 mEq ER Tab PO ONE (12:30)
--- NOTE | 2017-06-24 13:14 | CP.PCM.PN ---
Subjective - Date & Time of Evaluation Date of Evaluation: 06/24/17 Time of Evaluation: 13:12 - Subjective Subjective: Patient continues to have SOB and rales. Has less cough. Recent CT scan of the chest showed bilateral upper lobe infiltrate. Objective - Vital Signs/Intake and Output Vital Signs (last 24 hours): Temp Pulse Resp BP Pulse Ox 97.9 F 73 18 106/53 L 100 06/24/17 12:25 06/24/17 12:25 06/24/17 12:25 06/24/17 12:25 06/24/17 12:25 Intake and Output: 06/24/17 06/24/17 06:59 18:59 Intake Total 590 Output Total 1500 Balance -910 - Medications Medications: Current Medications Acetaminophen (Tylenol 325mg Tab) 650 mg PO Q6 PRN PRN Reason: Pain, Mild (1-3) Acetaminophen (Tylenol 325mg Tab) 650 mg PO Q4 PRN PRN Reason: Fever >100.4 F, headache Albuterol/Ipratropium (Duoneb 3 Mg/0.5 Mg (3 Ml) Ud) 3 ml INH RQ4 [facility] Last Admin: 06/24/17 11:20 Dose: 3 ml Albuterol/Ipratropium (Duoneb 3 Mg/0.5 Mg (3 Ml) Ud) 3 ml IH Q6H PRN PRN Reason: Shortness of Breath Benzonatate (Tessalon Perles) 100 mg PO TID PRN PRN Reason: Cough Digoxin (Lanoxin) 0.125 mg PO DAILY [facility] Last Admin: 06/24/17 09:12 Dose: 0.125 mg Ferrous Sulfate (Feosol) 325 mg PO DAILY [facility] Last Admin: 06/24/17 09:11 Dose: 325 mg Furosemide (Lasix) 40 mg IVP DAILY [facility] Gabapentin (Neurontin) 300 mg PO HS [facility] Last Admin: 06/23/17 21:30 Dose: 300 mg Clindamycin Phosphate 300 mg/ (Sodium Chloride) 52 mls @ 52 mls/hr IVPB Q8 [facility] PRN Reason: Protocol Last Admin: 06/24/17 09:30 Dose: 52 mls/hr Piperacillin Sod/Tazobactam (Sod 4.5 gm/ Sodium Chloride) 100 mls @ 100 mls/hr IVPB Q6 [facility] PRN Reason: Protocol Last Admin: 06/24/17 09:15 Dose: 100 mls/hr Insulin Human Regular (Humulin R) 0 units SC ACCU-CHECK [facility] PRN Reason: Protocol Last Admin: 06/24/17 12:27 Dose: 6 units Lactobacillus Acidophilus (Bacid Acidophilus) 1 cap PO BID [facility] Last Admin: 06/24/17 09:10 Dose: 1 cap Magnesium Hydroxide (Milk Of Magnesia) 30 ml PO DAILY PRN PRN Reason: Constipation Methylprednisolone (Solu-Medrol) 40 mg IVP Q8 [facility] Last Admin: 06/24/17 09:13 Dose: 40 mg Metolazone (Zaroxolyn) 2.5 mg PO DAILY [facility] Last Admin: 06/24/17 09:14 Dose: 2.5 mg Nitroglycerin (Nitrostat Sl Tab) 0.4 mg SL Q5M PRN PRN Reason: Other Last Admin: 06/21/17 06:36 Dose: 0.4 mg Pantoprazole Sodium (Protonix Ec Tab) 40 mg PO DAILY [facility] Last Admin: 06/24/17 09:13 Dose: 40 mg Potassium Chloride (K-Dur 20 Meq Er Tab) 40 meq PO DAILY [facility] Last Admin: 06/24/17 09:12 Dose: 40 meq Rivaroxaban (Xarelto) 15 mg PO DAILY [facility] PRN Reason: Protocol Last Admin: 06/24/17 09:14 Dose: 15 mg Sitagliptin Phosphate (Januvia) 50 mg PO DAILY [facility] Last Admin: 06/24/17 09:10 Dose: 50 mg Tobramycin Sulfate (Tobrex 0.3% [facility]) 1 drop OU TID [facility] Last Admin: 06/24/17 12:27 Dose: Not Given Valsartan (Diovan) 160 mg PO DAILY [facility] Last Admin: 06/24/17 09:12 Dose: 160 mg - Labs Labs: 06/23/17 06:00 06/24/17 06:00
--- NOTE | 2017-06-24 14:25 | CP.PCM.PN ---
Subjective - Date & Time of Evaluation Date of Evaluation: 06/24/17 Time of Evaluation: 13:30 - Subjective Subjective: F/U HCAP No A/D, confused, less cough, eating well. Objective - Vital Signs/Intake and Output Vital Signs (last 24 hours): Temp Pulse Resp BP Pulse Ox 97.9 F 73 18 106/63 100 06/24/17 13:00 06/24/17 13:00 06/24/17 13:00 06/24/17 13:00 06/24/17 13:00 Intake and Output: 06/24/17 06/24/17 06:59 18:59 Intake Total 590 Output Total 1500 Balance -910 - Medications Medications: Current Medications Acetaminophen (Tylenol 325mg Tab) 650 mg PO Q6 PRN PRN Reason: Pain, Mild (1-3) Acetaminophen (Tylenol 325mg Tab) 650 mg PO Q4 PRN PRN Reason: Fever >100.4 F, headache Albuterol/Ipratropium (Duoneb 3 Mg/0.5 Mg (3 Ml) Ud) 3 ml INH RQ4 [facility] Last Admin: 06/24/17 11:20 Dose: 3 ml Albuterol/Ipratropium (Duoneb 3 Mg/0.5 Mg (3 Ml) Ud) 3 ml IH Q6H PRN PRN Reason: Shortness of Breath Benzonatate (Tessalon Perles) 100 mg PO TID PRN PRN Reason: Cough Digoxin (Lanoxin) 0.125 mg PO DAILY [facility] Last Admin: 06/24/17 09:12 Dose: 0.125 mg Ferrous Sulfate (Feosol) 325 mg PO DAILY [facility] Last Admin: 06/24/17 09:11 Dose: 325 mg Furosemide (Lasix) 40 mg IVP DAILY [facility] Gabapentin (Neurontin) 300 mg PO HS [facility] Last Admin: 06/23/17 21:30 Dose: 300 mg Clindamycin Phosphate 300 mg/ (Sodium Chloride) 52 mls @ 52 mls/hr IVPB Q8 [facility] PRN Reason: Protocol Last Admin: 06/24/17 09:30 Dose: 52 mls/hr Piperacillin Sod/Tazobactam (Sod 4.5 gm/ Sodium Chloride) 100 mls @ 100 mls/hr IVPB Q6 [facility] PRN Reason: Protocol Last Admin: 06/24/17 09:15 Dose: 100 mls/hr Insulin Human Regular (Humulin R) 0 units SC ACCU-CHECK [facility] PRN Reason: Protocol Last Admin: 06/24/17 12:27 Dose: 6 units Lactobacillus Acidophilus (Bacid Acidophilus) 1 cap PO BID [facility] Last Admin: 06/24/17 09:10 Dose: 1 cap Magnesium Hydroxide (Milk Of Magnesia) 30 ml PO DAILY PRN PRN Reason: Constipation Methylprednisolone (Solu-Medrol) 40 mg IVP Q8 [facility] Last Admin: 06/24/17 09:13 Dose: 40 mg Metolazone (Zaroxolyn) 2.5 mg PO DAILY [facility] Last Admin: 06/24/17 09:14 Dose: 2.5 mg Nitroglycerin (Nitrostat Sl Tab) 0.4 mg SL Q5M PRN PRN Reason: Other Last Admin: 06/21/17 06:36 Dose: 0.4 mg Pantoprazole Sodium (Protonix Ec Tab) 40 mg PO DAILY [facility] Last Admin: 06/24/17 09:13 Dose: 40 mg Potassium Chloride (K-Dur 20 Meq Er Tab) 40 meq PO DAILY [facility] Last Admin: 06/24/17 09:12 Dose: 40 meq Rivaroxaban (Xarelto) 15 mg PO DAILY [facility] PRN Reason: Protocol Last Admin: 06/24/17 09:14 Dose: 15 mg Sitagliptin Phosphate (Januvia) 50 mg PO DAILY [facility] Last Admin: 06/24/17 09:10 Dose: 50 mg Tobramycin Sulfate (Tobrex 0.3% Ophth Soln) 1 drop OU TID [facility] Last Admin: 06/24/17 12:27 Dose: Not Given Valsartan (Diovan) 160 mg PO DAILY [facility] Last Admin: 06/24/17 09:12 Dose: 160 mg - Labs Labs: 06/23/17 06:00 06/24/17 06:00 - Constitutional Appears: No Acute Distress, Chronically Ill - Head Exam Head Exam: NORMAL INSPECTION - Eye Exam Eye Exam: PERRL - ENT Exam ENT Exam: Normal Exam - Neck Exam Neck Exam: Normal Inspection - Respiratory Exam Respiratory Exam: Decreased Breath Sounds (b/l), Rhonchi (scattered) - Cardiovascular Exam Cardiovascular Exam: REGULAR RHYTHM, Murmur (systolic 3/6 LSB [place] radiated to Axilla.) - GI/Abdominal Exam GI & Abdominal Exam: Soft, Normal Bowel Sounds - Extremities Exam Additional comments: Edema L/E 1+ non pitting - Back Exam Back Exam: NORMAL INSPECTION - Neurological Exam Neurological Exam: Awake Additional comments: Ox2, generalized weakness. - Psychiatric Exam Psychiatric exam: Normal Mood - Skin Skin Exam: Warm Assessment and Plan (1) HCAP (healthcare-associated pneumonia) Status: Acute (2) COPD (chronic obstructive pulmonary disease) Status: Chronic (3) Pulmonary hypertension Status: Chronic - Assessment and Plan (Free Text) Plan: F/U CXR, CBC tomorrow, continue Clinda , Zosyn , Duo [place].
[2017-06-25] MEDS: Albuterol-Ipratrop 3 mg / 0.5 (3 ml) UD INH SCH ×8 (00:10→23:43)
[2017-06-25] MEDS: Clindamycin 300 MG in Sodium Chloride 0.9% 50 ML IVPB SCH ×3 (00:59→17:26)
[2017-06-25] MEDS: MethylPREDNISolone 40 mg Vial IVP SCH ×3 (01:02→17:27)
[2017-06-25] MEDS: Piperacillin/Tazobact 4.5 GM in Sodium Chloride 0.9% 100 ML IVPB SCH ×4 (03:38→22:25)
[2017-06-25 05:44] LABS: HEMATOCRIT 26.6 % (34.0-47.0); MEAN CELL VOLUME 94.3 fl (81.0-99.0); MEAN CORPUSCULAR HGB CONC 31.8 g/dL (33.0-37.0); RED CELL DISTRIBUTION WIDTH 20.7 % (11.5-14.5); WHITE BLOOD COUNT 18.3 K/uL (4.8-10.8)
[2017-06-25 06:00] LABS: ALB/GLOB RATIO 1.3 (1.0-2.1); ALKALINE PHOSPHATASE 54 U/L (38-126); ALT/SGPT 39 U/L (9-52); AST/SGOT 37 U/L (14-36); BILIRUBIN,TOTAL 0.8 mg/dl (0.2-1.3); BLOOD UREA NITROGEN 51 mg/dl (7-17); CALCIUM 9.3 mg/dL (8.4-10.2); CHLORIDE 95 mmol/L (98-107); GFR AFRICAN-AMERICAN > 60; GLUCOSE,RANDOM 177 mg/dL (65-105); POTASSIUM 3.7 MMOL/L (3.6-5.0); SODIUM 144 mmol/l (132-148); TOTAL PROTEIN 5.3 G/DL (6.3-8.2)
[2017-06-25 06:22] LABS: CARBON DIOXIDE 44 mmol/L (22-30)
[2017-06-25] MEDS: Pantoprazole 40 mg EC Tab PO SCH (09:48)
[2017-06-25] MEDS: Tobramycin 0.3% OPHT SOLN OU SCH ×3 (09:48→17:28)
[2017-06-25] MEDS: metOLazone 2.5 MG TAB PO SCH (09:50)
[2017-06-25] MEDS: Potassium Chloride 20 mEq ER Tab PO SCH (09:51)
[2017-06-25] MEDS: Digoxin 125 mcg (0.125 mg) Tab PO SCH (09:51)
[2017-06-25 11:27] LABS: ABG ALLEN TEST YES; ARTERIAL BLOOD GAS HCO3 41.9 mmol/L (21-28); ARTERIAL BLOOD GAS O2 CAPACITY 12.9 mL/dL (16-24); ARTERIAL BLOOD GAS O2 CONTENT 12.8 ML/dL (15-23); ARTERIAL BLOOD GAS PH 7.52 (7.35-7.45); ARTERIAL BLOOD GAS PO2 77 mm/Hg (80-100); ARTERIAL BLOOD HGB O2 SAT 95.1 % (95.0-98.0); HHB 0.7 % (0.0-5.0); METHEMOGLOBIN 1.2 % (0.0-3.0)
--- NOTE | 2017-06-25 13:28 | CP.PCM.PN ---
Subjective - Date & Time of Evaluation Date of Evaluation: 06/25/17 Time of Evaluation: 11:30 - Subjective Subjective: F/U HCAP Pt breathing well, no respiratory distress. Objective - Vital Signs/Intake and Output Vital Signs (last 24 hours): Temp Pulse Resp BP Pulse Ox 97.9 F 71 20 133/71 100 06/25/17 12:38 06/25/17 12:38 06/25/17 12:38 06/25/17 12:38 06/25/17 12:38 - Medications Medications: Current Medications Acetaminophen (Tylenol 325mg Tab) 650 mg PO Q6 PRN PRN Reason: Pain, Mild (1-3) Acetaminophen (Tylenol 325mg Tab) 650 mg PO Q4 PRN PRN Reason: Fever >100.4 F, headache Albuterol/Ipratropium (Duoneb 3 Mg/0.5 Mg (3 Ml) Ud) 3 ml INH RQ4 [facility] Last Admin: 06/25/17 11:37 Dose: 3 ml Albuterol/Ipratropium (Duoneb 3 Mg/0.5 Mg (3 Ml) Ud) 3 ml IH Q6H PRN PRN Reason: Shortness of Breath Benzonatate (Tessalon Perles) 100 mg PO TID PRN PRN Reason: Cough Digoxin (Lanoxin) 0.125 mg PO DAILY [facility] Last Admin: 06/25/17 09:51 Dose: 0.125 mg Ferrous Sulfate (Feosol) 325 mg PO DAILY [facility] Last Admin: 06/25/17 09:50 Dose: 325 mg Furosemide (Lasix) 40 mg IVP DAILY [facility] Last Admin: 06/25/17 09:51 Dose: 40 mg Gabapentin (Neurontin) 300 mg PO HS [facility] Last Admin: 06/24/17 21:05 Dose: 300 mg Clindamycin Phosphate 300 mg/ (Sodium Chloride) 52 mls @ 52 mls/hr IVPB Q8 [facility] PRN Reason: Protocol Last Admin: 06/25/17 09:52 Dose: 52 mls/hr Piperacillin Sod/Tazobactam (Sod 4.5 gm/ Sodium Chloride) 100 mls @ 100 mls/hr IVPB Q6 [facility] PRN Reason: Protocol Last Admin: 06/25/17 09:53 Dose: 100 mls/hr Insulin Human Regular (Humulin R) 0 units SC ACCU-CHECK [facility] PRN Reason: Protocol Last Admin: 06/24/17 22:50 Dose: 2 units Lactobacillus Acidophilus (Bacid Acidophilus) 1 cap PO BID [facility] Last Admin: 06/24/17 16:28 Dose: 1 cap Magnesium Hydroxide (Milk Of Magnesia) 30 ml PO DAILY PRN PRN Reason: Constipation Methylprednisolone (Solu-Medrol) 40 mg IVP Q8 [facility] Last Admin: 06/25/17 09:51 Dose: 40 mg Metolazone (Zaroxolyn) 2.5 mg PO DAILY [facility] Last Admin: 06/25/17 09:50 Dose: 2.5 mg Nitroglycerin (Nitrostat Sl Tab) 0.4 mg SL Q5M PRN PRN Reason: Other Last Admin: 06/21/17 06:36 Dose: 0.4 mg Pantoprazole Sodium (Protonix Ec Tab) 40 mg PO DAILY [facility] Last Admin: 06/25/17 09:48 Dose: 40 mg Potassium Chloride (K-Dur 20 Meq Er Tab) 40 meq PO DAILY [facility] Last Admin: 06/25/17 09:51 Dose: 40 meq Rivaroxaban (Xarelto) 15 mg PO DAILY [facility] PRN Reason: Protocol Last Admin: 06/25/17 09:48 Dose: 15 mg Sitagliptin Phosphate (Januvia) 50 mg PO DAILY [facility] Last Admin: 06/25/17 09:50 Dose: 50 mg Tobramycin Sulfate (Tobrex 0.3% Ophth Soln) 1 drop OU TID [facility] Last Admin: 06/25/17 09:48 Dose: 1 drop Valsartan (Diovan) 160 mg PO DAILY [facility] Last Admin: 06/25/17 09:50 Dose: 160 mg - Labs Labs: 06/25/17 04:10 06/25/17 04:10 - Constitutional Appears: No Acute Distress, Chronically Ill - Head Exam Head Exam: NORMAL INSPECTION - Eye Exam Eye Exam: PERRL - ENT Exam ENT Exam: Normal Exam - Neck Exam Neck Exam: Normal Inspection - Respiratory Exam Respiratory Exam: Decreased Breath Sounds (b/l), Rhonchi (scattered) - Cardiovascular Exam Cardiovascular Exam: REGULAR RHYTHM, Murmur (systolic 3/6 LSB [place] radiated to Axilla.) - GI/Abdominal Exam GI & Abdominal Exam: Soft, Normal Bowel Sounds - Extremities Exam Additional comments: Edema L/E 1+ non pitting - Back Exam Back Exam: NORMAL INSPECTION - Neurological Exam Neurological Exam: Awake Additional comments: Oriented x 2, generalized weakness. - Psychiatric Exam Psychiatric exam: Normal Mood - Skin Skin Exam: Warm Assessment and Plan (1) HCAP (healthcare-associated pneumonia) Status: Acute (2) COPD (chronic obstructive pulmonary disease) Status: Chronic (3) Pulmonary hypertension Status: Chronic - Assessment and Plan (Free Text) Plan: F/U CXR and ABG today.
[2017-06-25] MEDS: Insulin Regular 100 units/ml SC SCH ×4 (13:40→22:23)
[2017-06-25] MEDS: Lactobacillus Acidophilus 500 MU Cap PO SCH ×2 (13:43→17:26)
--- NOTE | 2017-06-25 16:08 | RAD ---
HISTORY: chf COMPARISON: 06/20/2017 TECHNIQUE: Chest PA and lateral FINDINGS: LUNGS: Patchy infiltrate in the right upper lobe and right lower lobe. PLEURA: Small pleural effusions CARDIOVASCULAR: Mild cardiomegaly OSSEOUS STRUCTURES: Sternal wires VISUALIZED UPPER ABDOMEN: Normal. OTHER FINDINGS: Dual lead pacemaker IMPRESSION: Patchy infiltrates right lung
[2017-06-26] MEDS: Clindamycin 300 MG in Sodium Chloride 0.9% 50 ML IVPB SCH ×3 (00:32→17:13)
[2017-06-26] MEDS: MethylPREDNISolone 40 mg Vial IVP SCH ×3 (00:33→17:22)
[2017-06-26] MEDS ORDERED: Albuterol-Ipratrop 3 mg / 0.5 (3 ml) UD ONE (04:00)
[2017-06-26] MEDS: Piperacillin/Tazobact 4.5 GM in Sodium Chloride 0.9% 100 ML IVPB SCH ×4 (04:20→21:01)
[2017-06-26] MEDS ORDERED: Piperacillin/Tazobact 4.5 GM in Sodium Chloride 0.9% 100 ML IVPB ONE (04:20)
[2017-06-26] MEDS: Albuterol-Ipratrop 3 mg / 0.5 (3 ml) UD INH SCH ×5 (05:05→19:24)
[2017-06-26 05:38] LABS: HEMATOCRIT 26.6 % (34.0-47.0); MEAN CORPUSCULAR HEMOGLOBIN 29.6 pg (27.0-31.0); MEAN CORPUSCULAR HGB CONC 31.9 g/dL (33.0-37.0); RED CELL DISTRIBUTION WIDTH 20.3 % (11.5-14.5); WHITE BLOOD COUNT 18.2 K/uL (4.8-10.8)
[2017-06-26 05:57] LABS: ABG ALLEN TEST YES; ARTERIAL BLOOD GAS O2 CAPACITY 12.3 mL/dL (16-24); ARTERIAL BLOOD GAS O2 CONTENT 12.3 ML/dL (15-23); ARTERIAL BLOOD GAS PH 7.49 (7.35-7.45); ARTERIAL BLOOD GAS PO2 131 mm/Hg (80-100); ARTERIAL BLOOD HGB O2 SAT 96.4 % (95.0-98.0); CARBOXYHEMOGLOBIN 2.1 % (0.5-1.5); HHB 0.2 % (0.0-5.0); METHEMOGLOBIN 1.3 % (0.0-3.0)
[2017-06-26 06:02] LABS: BLOOD UREA NITROGEN 48 mg/dl (7-17); CALCIUM 8.6 mg/dL (8.4-10.2); CHLORIDE 94 mmol/L (98-107); GFR AFRICAN-AMERICAN > 60; GLUCOSE,RANDOM 169 mg/dL (65-105); POTASSIUM 3.6 MMOL/L (3.6-5.0); SODIUM 142 mmol/l (132-148)
[2017-06-26] MEDS: Insulin Regular 100 units/ml SC SCH ×4 (06:29→22:40)
[2017-06-26] MEDS: Pantoprazole 40 mg EC Tab PO SCH (09:31)
[2017-06-26] MEDS: metOLazone 2.5 MG TAB PO SCH (09:31)
[2017-06-26] MEDS: Digoxin 125 mcg (0.125 mg) Tab PO SCH (09:32)
[2017-06-26] MEDS: Potassium Chloride 20 mEq ER Tab PO SCH (09:32)
[2017-06-26] MEDS: Tobramycin 0.3% OPHT SOLN OU SCH ×2 (09:33→17:22)
[2017-06-26] MEDS: Lactobacillus Acidophilus 500 MU Cap PO SCH (09:35)
--- NOTE | 2017-06-26 10:26 | CP.PCM.PN ---
<Benedict Santana - Last Filed: 06/26/17 10:36> Subjective - Date & Time of Evaluation Date of Evaluation: 06/26/17 Time of Evaluation: 10:24 - Subjective Subjective: 82 YO F [facility] Dr. Lawrence, appears to be more drowsy then her baseline. Continues to have difficulty breathing. She was on Bipap earlier but had removed it , will put patient back on bipap for her increased CO2 levels Objective - Vital Signs/Intake and Output Vital Signs (last 24 hours): Temp Pulse Resp BP Pulse Ox 97.5 F L 70 18 135/78 100 06/26/17 08:03 06/26/17 08:03 06/26/17 08:03 06/26/17 09:31 06/26/17 08:03 Intake and Output: 06/26/17 06/26/17 06:59 18:59 Output Total 1550 Balance -1550 - Medications Medications: Current Medications Acetaminophen (Tylenol 325mg Tab) 650 mg PO Q6 PRN PRN Reason: Pain, Mild (1-3) Last Admin: 06/25/17 22:28 Dose: 650 mg Acetaminophen (Tylenol 325mg Tab) 650 mg PO Q4 PRN PRN Reason: Fever >100.4 F, headache Albuterol/Ipratropium (Duoneb 3 Mg/0.5 Mg (3 Ml) Ud) 3 ml INH RQ4 [facility] Last Admin: 06/26/17 07:44 Dose: 3 ml Albuterol/Ipratropium (Duoneb 3 Mg/0.5 Mg (3 Ml) Ud) 3 ml IH Q6H PRN PRN Reason: Shortness of Breath Benzonatate (Tessalon Perles) 100 mg PO TID PRN PRN Reason: Cough Digoxin (Lanoxin) 0.125 mg PO DAILY [facility] Last Admin: 06/26/17 09:32 Dose: 0.125 mg Ferrous Sulfate (Feosol) 325 mg PO DAILY [facility] Last Admin: 06/26/17 09:32 Dose: 325 mg Furosemide (Lasix) 40 mg IVP DAILY [facility] Last Admin: 06/26/17 09:31 Dose: 40 mg Gabapentin (Neurontin) 300 mg PO HS [facility] Last Admin: 06/25/17 22:24 Dose: 300 mg Clindamycin Phosphate 300 mg/ (Sodium Chloride) 52 mls @ 52 mls/hr IVPB Q8 [facility] PRN Reason: Protocol Last Admin: 06/26/17 09:33 Dose: 52 mls/hr Piperacillin Sod/Tazobactam (Sod 4.5 gm/ Sodium Chloride) 100 mls @ 100 mls/hr IVPB Q6 [facility] PRN Reason: Protocol Last Admin: 06/26/17 09:33 Dose: 100 mls/hr Insulin Human Regular (Humulin R) 0 units SC ACCU-CHECK [facility] PRN Reason: Protocol Last Admin: 06/26/17 06:29 Dose: 2 units Lactobacillus Acidophilus (Bacid Acidophilus) 1 cap PO BID [facility] Last Admin: 06/26/17 09:35 Dose: 1 cap Magnesium Hydroxide (Milk Of Magnesia) 30 ml PO DAILY PRN PRN Reason: Constipation Methylprednisolone (Solu-Medrol) 30 mg IVP Q8 [facility] Last Admin: 06/26/17 09:32 Dose: 30 mg Metolazone (Zaroxolyn) 2.5 mg PO DAILY [facility] Last Admin: 06/26/17 09:31 Dose: 2.5 mg Nitroglycerin (Nitrostat Sl Tab) 0.4 mg SL Q5M PRN PRN Reason: Other Last Admin: 06/21/17 06:36 Dose: 0.4 mg Pantoprazole Sodium (Protonix Ec Tab) 40 mg PO DAILY [facility] Last Admin: 06/26/17 09:31 Dose: 40 mg Potassium Chloride (K-Dur 20 Meq Er Tab) 40 meq PO DAILY [facility] Last Admin: 06/26/17 09:32 Dose: 40 meq Rivaroxaban (Xarelto) 15 mg PO DAILY [facility] PRN Reason: Protocol Last Admin: 06/26/17 09:31 Dose: 15 mg Sitagliptin Phosphate (Januvia) 50 mg PO DAILY [facility] Last Admin: 06/26/17 09:32 Dose: 50 mg Tobramycin Sulfate (Tobrex 0.3% Ophth Soln) 1 drop OU TID [facility] Last Admin: 06/26/17 09:33 Dose: Not Given Valsartan (Diovan) 160 mg PO DAILY [facility] Last Admin: 06/26/17 09:31 Dose: 160 mg - Labs Labs: 06/26/17 04:15 06/26/17 04:15 - Constitutional Appears: No Acute Distress - Head Exam Head Exam: NORMAL INSPECTION - Eye Exam Eye Exam: Normal appearance - Respiratory Exam Respiratory Exam: Accessory Muscle Use, Rales, Rhonchi, Wheezes - Cardiovascular Exam Cardiovascular Exam: +S1, +S2 - GI/Abdominal Exam GI & Abdominal Exam: Soft, Normal Bowel Sounds. absent: Tenderness - Extremities Exam Extremities Exam: absent: Calf Tenderness - Neurological Exam Neurological Exam: Alert (drowsy), Awake, CN II-XII Intact - Skin Skin Exam: Normal Color, Warm Assessment and Plan - Assessment and Plan (Free Text) Assessment: 1) Pnuemonia : HCAP vs Aspiration - X ray showed persistent right superior paramediastianal opacity, questionable significance, small right pleural effusion - CT showed b/l upper lobe infiltrates - WBC 18.2 - Pulm consult appreciated - ID consult appreciated - Zosyn and clindamycin 2) COPD exacerbation - duonebs 3mL Inh Q4h - Methylprednisolone 40 mg Q8 - ABG: PCO2: 59, PO2: 131, HCO3:40, PH: 7.49 - Putting patient back on bipap 3) Left sided acute on chronic diastolic dysfunction with preserved EF. - Troponin x 2 positive - previous echo reviewed : EF : 65- 75 % - [employer]ist: Dr. Jean consulted - last echo 05/15/2017 showed EF 60-65%, severe tricuspid regurgitation, severe pulmonary hypertension - Continue with Lasix 40 mg BID 4) Afib - home medication digoxin and Xarelto - has atrial sensed ventricular paced pacemaker 5) DVT prophylaxis -SCD - xaralto <Juan A Lawrence - Last Filed: 07/01/17 23:21> Objective - Vital Signs/Intake and Output Vital Signs (last 24 hours): Temp Pulse Resp BP Pulse Ox 98.1 F 77 18 127/61 100 07/01/17 20:09 07/01/17 20:09 07/01/17 20:09 07/01/17 20:09 07/01/17 20:09 Intake and Output: 07/01/17 07/02/17 18:59 06:59 Intake Total 900 Output Total 1600 Balance -700 - Medications Medications: Current Medications Acetaminophen (Tylenol 325mg Tab) 650 mg PO Q6 PRN PRN Reason: Pain, Mild (1-3) Last Admin: 06/29/17 16:37 Dose: 650 mg Acetaminophen (Tylenol 325mg Tab) 650 mg PO Q4 PRN PRN Reason: Fever >100.4 F, headache Albuterol/Ipratropium (Duoneb 3 Mg/0.5 Mg (3 Ml) Ud) 3 ml INH RQ4 [facility] Last Admin: 07/01/17 19:13 Dose: 3 ml Albuterol/Ipratropium (Duoneb 3 Mg/0.5 Mg (3 Ml) Ud) 3 ml IH Q6H PRN PRN Reason: Shortness of Breath Benzonatate (Tessalon Perles) 100 mg PO TID PRN PRN Reason: Cough Bismuth Subsalicylate (Pepto-Bismol) 262 mg PO TID [facility] Last Admin: 07/01/17 17:59 Dose: Not Given Digoxin (Lanoxin) 0.125 mg PO DAILY [facility] Last Admin: 07/01/17 09:56 Dose: 0.125 mg Ferrous Sulfate (Feosol) 325 mg PO DAILY [facility] Last Admin: 07/01/17 09:55 Dose: 325 mg Fluconazole (Diflucan) 100 mg PO DAILY [facility] PRN Reason: Protocol Last Admin: 07/01/17 09:54 Dose: 100 mg Furosemide (Lasix) 40 mg IVP DAILY [facility] Last Admin: 07/01/17 09:57 Dose: 40 mg Gabapentin (Neurontin) 300 mg PO HS [facility] Last Admin: 07/01/17 21:01 Dose: 300 mg Clindamycin Phosphate 300 mg/ (Sodium Chloride) 52 mls @ 52 mls/hr IVPB Q8 [facility] PRN Reason: Protocol Last Admin: 07/01/17 17:27 Dose: 52 mls/hr Meropenem 500 mg/ Sodium (Chloride) 100 mls @ 100 mls/hr IVPB Q8 [facility] PRN Reason: Protocol Last Admin: 07/01/17 17:27 Dose: 100 mls/hr Insulin Human Regular (Humulin R) 0 units SC ACCU-CHECK [facility] PRN Reason: Protocol Last Admin: 07/01/17 22:11 Dose: Not Given Lactobacillus Acidophilus (Bacid Acidophilus) 1 cap PO BID [facility] Last Admin: 07/01/17 17:27 Dose: 1 cap Magnesium Hydroxide (Milk Of Magnesia) 30 ml PO DAILY PRN PRN Reason: Constipation Methylprednisolone (Solu-Medrol) 30 mg IVP Q12 [facility] Last Admin: 07/01/17 21:02 Dose: 30 mg Metolazone (Zaroxolyn) 2.5 mg PO DAILY [facility] Last Admin: 07/01/17 10:00 Dose: 2.5 mg Nitroglycerin (Nitrostat Sl Tab) 0.4 mg SL Q5M PRN PRN Reason: Other Last Admin: 06/21/17 06:36 Dose: 0.4 mg Nystatin (Nystatin Oral Susp) 5 ml PO QID [facility] Last Admin: 07/01/17 21:01 Dose: 5 ml Pantoprazole Sodium (Protonix Ec Tab) 40 mg PO DAILY [facility] Last Admin: 07/01/17 09:59 Dose: 40 mg Potassium Chloride (K-Dur 20 Meq Er Tab) 40 meq PO DAILY [facility] Last Admin: 07/01/17 09:56 Dose: 40 meq Rivaroxaban (Xarelto) 15 mg PO DAILY [facility] PRN Reason: Protocol Last Admin: 07/01/17 10:00 Dose: 15 mg Sitagliptin Phosphate (Januvia) 50 mg PO DAILY [facility] Last Admin: 07/01/17 09:56 Dose: 50 mg Tobramycin Sulfate (Tobrex 0.3% Ophth Soln) 1 drop OU TID [facility] Last Admin: 07/01/17 17:21 Dose: Not Given Valsartan (Diovan) 160 mg PO DAILY [facility] Last Admin: 07/01/17 09:55 Dose: 160 mg - Labs Labs: 06/30/17 06:30 06/30/17 07:30 Assessment and Plan (1) Pneumonia Status: Acute (2) Pulmonary hypertension Status: Chronic (3) Acute on chronic heart failure Status: Acute (4) Benign essential HTN Status: Acute (5) COPD exacerbation Status: Acute - Assessment and Plan (Free Text) Plan: I was present during evaluation and discussed with Dr Santana re plans of care and mgt Juan A Lawrence M.D.
--- NOTE | 2017-06-26 14:02 | CP.PCM.PN ---
Subjective - Date & Time of Evaluation Date of Evaluation: 06/26/17 Time of Evaluation: 12:00 - Subjective Subjective: F/U HCAP Pt awake, no A/D, on BIPAP, refused BIPAP yesterday and overnight but using it today. Objective - Vital Signs/Intake and Output Vital Signs (last 24 hours): Temp Pulse Resp BP Pulse Ox 98.5 F 82 16 126/70 98 06/26/17 12:29 06/26/17 12:29 06/26/17 12:29 06/26/17 12:29 06/26/17 12:29 Intake and Output: 06/26/17 06/26/17 06:59 18:59 Output Total 1550 Balance -1550 - Medications Medications: Current Medications Acetaminophen (Tylenol 325mg Tab) 650 mg PO Q6 PRN PRN Reason: Pain, Mild (1-3) Last Admin: 06/25/17 22:28 Dose: 650 mg Acetaminophen (Tylenol 325mg Tab) 650 mg PO Q4 PRN PRN Reason: Fever >100.4 F, headache Albuterol/Ipratropium (Duoneb 3 Mg/0.5 Mg (3 Ml) Ud) 3 ml INH RQ4 [facility] Last Admin: 06/26/17 11:32 Dose: 3 ml Albuterol/Ipratropium (Duoneb 3 Mg/0.5 Mg (3 Ml) Ud) 3 ml IH Q6H PRN PRN Reason: Shortness of Breath Benzonatate (Tessalon Perles) 100 mg PO TID PRN PRN Reason: Cough Digoxin (Lanoxin) 0.125 mg PO DAILY [facility] Last Admin: 06/26/17 09:32 Dose: 0.125 mg Ferrous Sulfate (Feosol) 325 mg PO DAILY [facility] Last Admin: 06/26/17 09:32 Dose: 325 mg Furosemide (Lasix) 40 mg IVP DAILY [facility] Last Admin: 06/26/17 09:31 Dose: 40 mg Gabapentin (Neurontin) 300 mg PO HS [facility] Last Admin: 06/25/17 22:24 Dose: 300 mg Clindamycin Phosphate 300 mg/ (Sodium Chloride) 52 mls @ 52 mls/hr IVPB Q8 [facility] PRN Reason: Protocol Last Admin: 06/26/17 09:33 Dose: 52 mls/hr Piperacillin Sod/Tazobactam (Sod 4.5 gm/ Sodium Chloride) 100 mls @ 100 mls/hr IVPB Q6 [facility] PRN Reason: Protocol Last Admin: 06/26/17 09:33 Dose: 100 mls/hr Insulin Human Regular (Humulin R) 0 units SC ACCU-CHECK [facility] PRN Reason: Protocol Last Admin: 06/26/17 06:29 Dose: 2 units Lactobacillus Acidophilus (Bacid Acidophilus) 1 cap PO BID [facility] Last Admin: 06/26/17 09:35 Dose: 1 cap Magnesium Hydroxide (Milk Of Magnesia) 30 ml PO DAILY PRN PRN Reason: Constipation Methylprednisolone (Solu-Medrol) 30 mg IVP Q8 [facility] Last Admin: 06/26/17 09:32 Dose: 30 mg Metolazone (Zaroxolyn) 2.5 mg PO DAILY [facility] Last Admin: 06/26/17 09:31 Dose: 2.5 mg Nitroglycerin (Nitrostat Sl Tab) 0.4 mg SL Q5M PRN PRN Reason: Other Last Admin: 06/21/17 06:36 Dose: 0.4 mg Pantoprazole Sodium (Protonix Ec Tab) 40 mg PO DAILY [facility] Last Admin: 06/26/17 09:31 Dose: 40 mg Potassium Chloride (K-Dur 20 Meq Er Tab) 40 meq PO DAILY [facility] Last Admin: 06/26/17 09:32 Dose: 40 meq Rivaroxaban (Xarelto) 15 mg PO DAILY [facility] PRN Reason: Protocol Last Admin: 06/26/17 09:31 Dose: 15 mg Sitagliptin Phosphate (Januvia) 50 mg PO DAILY [facility] Last Admin: 06/26/17 09:32 Dose: 50 mg Tobramycin Sulfate (Tobrex 0.3% Ophth Soln) 1 drop OU TID [facility] Last Admin: 06/26/17 09:33 Dose: Not Given Valsartan (Diovan) 160 mg PO DAILY [facility] Last Admin: 06/26/17 09:31 Dose: 160 mg - Labs Labs: 06/26/17 04:15 06/26/17 04:15 - Constitutional Appears: No Acute Distress, Chronically Ill - Head Exam Head Exam: NORMAL INSPECTION - Eye Exam Eye Exam: PERRL - ENT Exam ENT Exam: Normal Exam - Neck Exam Neck Exam: Normal Inspection - Respiratory Exam Respiratory Exam: Decreased Breath Sounds (b/l), Rhonchi (scattered) - Cardiovascular Exam Cardiovascular Exam: REGULAR RHYTHM, Murmur (systolic 3/6 LSB [place] radiated to Axilla.) - GI/Abdominal Exam GI & Abdominal Exam: Soft, Normal Bowel Sounds - Extremities Exam Additional comments: Legs edema 1+ non pitting. - Back Exam Back Exam: NORMAL INSPECTION - Neurological Exam Neurological Exam: Awake Additional comments: Oriented x2, generalized weakness. - Psychiatric Exam Psychiatric exam: Normal Mood - Skin Skin Exam: Warm Assessment and Plan (1) HCAP (healthcare-associated pneumonia) Status: Acute (2) COPD (chronic obstructive pulmonary disease) Status: Chronic (3) Pulmonary hypertension Status: Chronic (4) Hypercapnic respiratory failure Status: Acute - Assessment and Plan (Free Text) Plan: Continue Zosyn, Clinda, Duoneb, Solumedrol, BIPAP
[2017-06-27] MEDS: Clindamycin 300 MG in Sodium Chloride 0.9% 50 ML IVPB SCH ×3 (00:22→17:36)
[2017-06-27] MEDS: MethylPREDNISolone 40 mg Vial IVP SCH ×3 (00:23→17:31)
[2017-06-27] MEDS: Albuterol-Ipratrop 3 mg / 0.5 (3 ml) UD INH SCH ×6 (00:44→19:07)
[2017-06-27] MEDS: Piperacillin/Tazobact 4.5 GM in Sodium Chloride 0.9% 100 ML IVPB SCH ×2 (04:47→09:34)
[2017-06-27 05:32] LABS: HEMATOCRIT 26.4 % (34.0-47.0); MEAN CELL VOLUME 93.5 fl (81.0-99.0); MEAN CORPUSCULAR HGB CONC 32.1 g/dL (33.0-37.0); RED CELL DISTRIBUTION WIDTH 19.5 % (11.5-14.5); WHITE BLOOD COUNT 16.8 K/uL (4.8-10.8)
[2017-06-27 05:44] LABS: BLOOD UREA NITROGEN 44 mg/dl (7-17); CALCIUM 9.1 mg/dL (8.4-10.2); CHLORIDE 97 mmol/L (98-107); GFR AFRICAN-AMERICAN > 60; GLUCOSE,RANDOM 160 mg/dL (65-105); POTASSIUM 3.5 MMOL/L (3.6-5.0); SODIUM 143 mmol/l (132-148)
[2017-06-27 06:24] LABS: CARBON DIOXIDE 41 mmol/L (22-30)
[2017-06-27] MEDS: Insulin Regular 100 units/ml SC SCH ×4 (06:56→22:51)
[2017-06-27 08:41] LABS: ABG ALLEN TEST YES; ARTERIAL BLOOD GAS HCO3 38.9 mmol/L (21-28); ARTERIAL BLOOD GAS O2 CAPACITY 12.9 mL/dL (16-24); ARTERIAL BLOOD GAS O2 CONTENT 12.8 ML/dL (15-23); ARTERIAL BLOOD GAS PH 7.51 (7.35-7.45); ARTERIAL BLOOD GAS PO2 81 mm/Hg (80-100); ARTERIAL BLOOD HGB O2 SAT 94.9 % (95.0-98.0); CARBOXYHEMOGLOBIN 2.9 % (0.5-1.5); HHB 0.7 % (0.0-5.0); METHEMOGLOBIN 1.5 % (0.0-3.0)
[2017-06-27] MEDS: Lactobacillus Acidophilus 500 MU Cap PO SCH ×3 (09:34→17:28)
[2017-06-27] MEDS: Digoxin 125 mcg (0.125 mg) Tab PO SCH (09:38)
[2017-06-27] MEDS: Potassium Chloride 20 mEq ER Tab PO SCH (09:38)
[2017-06-27] MEDS: Pantoprazole 40 mg EC Tab PO SCH (09:40)
[2017-06-27] MEDS: metOLazone 2.5 MG TAB PO SCH (09:40)
[2017-06-27] MEDS: Tobramycin 0.3% OPHT SOLN OU SCH ×2 (09:40→17:35)
[2017-06-27] MEDS ORDERED: Sodium Chloride 3% for Inhalation 4 ML VIAL.NEB IH PRN (11:16)
--- NOTE | 2017-06-27 14:31 | CP.PCM.PN ---
Subjective - Date & Time of Evaluation Date of Evaluation: 06/27/17 - Subjective Subjective: F/U HCAP SOB, on NC , not on BIPAP Objective - Vital Signs/Intake and Output Vital Signs (last 24 hours): Temp Pulse Resp BP Pulse Ox 98.3 F 73 20 113/65 100 06/27/17 12:00 06/27/17 12:00 06/27/17 12:00 06/27/17 12:00 06/27/17 12:00 Intake and Output: 06/27/17 06/27/17 06:59 18:59 Intake Total 600 Output Total 500 Balance 100 - Medications Medications: Current Medications Acetaminophen (Tylenol 325mg Tab) 650 mg PO Q6 PRN PRN Reason: Pain, Mild (1-3) Last Admin: 06/25/17 22:28 Dose: 650 mg Acetaminophen (Tylenol 325mg Tab) 650 mg PO Q4 PRN PRN Reason: Fever >100.4 F, headache Albuterol/Ipratropium (Duoneb 3 Mg/0.5 Mg (3 Ml) Ud) 3 ml INH RQ4 [facility] Last Admin: 06/27/17 11:38 Dose: 3 ml Albuterol/Ipratropium (Duoneb 3 Mg/0.5 Mg (3 Ml) Ud) 3 ml IH Q6H PRN PRN Reason: Shortness of Breath Benzonatate (Tessalon Perles) 100 mg PO TID PRN PRN Reason: Cough Digoxin (Lanoxin) 0.125 mg PO DAILY [facility] Last Admin: 06/27/17 09:38 Dose: 0.125 mg Ferrous Sulfate (Feosol) 325 mg PO DAILY [facility] Last Admin: 06/27/17 09:37 Dose: 325 mg Fluconazole (Diflucan) 100 mg PO DAILY [facility] PRN Reason: Protocol Furosemide (Lasix) 40 mg IVP DAILY [facility] Last Admin: 06/27/17 09:39 Dose: 40 mg Gabapentin (Neurontin) 300 mg PO HS [facility] Last Admin: 06/26/17 21:00 Dose: 300 mg Clindamycin Phosphate 300 mg/ (Sodium Chloride) 52 mls @ 52 mls/hr IVPB Q8 [facility] PRN Reason: Protocol Last Admin: 06/27/17 09:35 Dose: 52 mls/hr Piperacillin Sod/Tazobactam Sod (Zosyn 4.5 Gm Iv Premix) 4.5 gm in 100 mls @ 100 mls/hr IVPB Q6 [facility] PRN Reason: Protocol Insulin Human Regular (Humulin R) 0 units SC ACCU-CHECK [facility] PRN Reason: Protocol Last Admin: 06/27/17 06:56 Dose: 4 units Lactobacillus Acidophilus (Bacid Acidophilus) 1 cap PO BID [facility] Last Admin: 06/27/17 09:36 Dose: 1 cap Magnesium Hydroxide (Milk Of Magnesia) 30 ml PO DAILY PRN PRN Reason: Constipation Methylprednisolone (Solu-Medrol) 30 mg IVP Q8 [facility] Last Admin: 06/27/17 00:23 Dose: 30 mg Metolazone (Zaroxolyn) 2.5 mg PO DAILY [facility] Last Admin: 06/27/17 09:40 Dose: 2.5 mg Nitroglycerin (Nitrostat Sl Tab) 0.4 mg SL Q5M PRN PRN Reason: Other Last Admin: 06/21/17 06:36 Dose: 0.4 mg Pantoprazole Sodium (Protonix Ec Tab) 40 mg PO DAILY [facility] Last Admin: 06/27/17 09:40 Dose: 40 mg Potassium Chloride (K-Dur 20 Meq Er Tab) 40 meq PO DAILY [facility] Last Admin: 06/27/17 09:38 Dose: 40 meq Rivaroxaban (Xarelto) 15 mg PO DAILY [facility] PRN Reason: Protocol Last Admin: 06/27/17 09:40 Dose: 15 mg Sitagliptin Phosphate (Januvia) 50 mg PO DAILY [facility] Last Admin: 06/27/17 09:37 Dose: 50 mg Tobramycin Sulfate (Tobrex 0.3% [facility]) 1 drop OU TID [facility] Last Admin: 06/27/17 09:40 Dose: Not Given Valsartan (Diovan) 160 mg PO DAILY [facility] Last Admin: 06/27/17 09:37 Dose: 160 mg - Labs Labs: 06/27/17 04:20 06/27/17 04:20 - Constitutional Appears: No Acute Distress, Chronically Ill - Head Exam Head Exam: NORMAL INSPECTION - Eye Exam Eye Exam: PERRL - ENT Exam ENT Exam: Normal Exam - Neck Exam Neck Exam: Normal Inspection - Respiratory Exam Respiratory Exam: Decreased Breath Sounds (b/l), Rhonchi (scattered) - Cardiovascular Exam Cardiovascular Exam: REGULAR RHYTHM, Murmur (systolic 3/6 LSB [place] radiated to Axilla.) - GI/Abdominal Exam GI & Abdominal Exam: Soft, Normal Bowel Sounds - Extremities Exam Additional comments: Edema L/E 1+ non pitting - Back Exam Back Exam: NORMAL INSPECTION - Neurological Exam Neurological Exam: Awake Additional comments: O x2, generalized weakness. - Psychiatric Exam Psychiatric exam: Normal Mood - Skin Skin Exam: Warm Assessment and Plan (1) HCAP (healthcare-associated pneumonia) Status: Acute (2) COPD (chronic obstructive pulmonary disease) Status: Chronic (3) Pulmonary hypertension Status: Chronic (4) Hypercapnic respiratory failure Status: Acute - Assessment and Plan (Free Text) Plan: CT Chest PNA no improvement , Patient refusing BIPAP, continue Clinda Zosyn , Duo [place] , ID consult
--- NOTE | 2017-06-27 15:28 | CT ---
PROCEDURE: CT Chest without contrast HISTORY: Pneumonia COMPARISON: 06/21/2017 TECHNIQUE: Contiguous axial images were obtained through the chest without intravenous contrast enhancement. Sagittal and coronal reconstructions were performed. Radiation dose (DLP): 207.14 MGy-cm. This CT exam was performed using one or more of the following dose reduction techniques: Automated exposure control, adjustment of the mA and/or kV according to patient size, and/or use of iterative reconstruction technique. FINDINGS: LUNGS: Since the prior examination, there has been no significant interval change in confluent and ground-glass airspace disease in both lungs with peripheral sparing, worse in the right upper lobe. MEDIASTINUM: The aorta is not dilated. There is mild cardiomegaly. There are atherosclerotic coronary artery calcifications. There are subcentimeter mediastinal lymph nodes, likely reactive in etiology. PLEURA: Again seen is moderate right pleural effusion. No left pleural effusion. No pneumothorax. BONES: Chronic osteoporotic compression fractures in the mid and lower thoracic spine. No destructive lesion. Diffuse bone demineralization. UPPER ABDOMEN: Grossly unremarkable. OTHER FINDINGS: None. IMPRESSION: 1. Findings are most compatible with multifocal pneumonia, worse in the right upper lobe. No significant interval change. 2. Persistent moderate right pleural effusion.
--- NOTE | 2017-06-27 15:34 | CP.PCM.PN ---
<Benedict Santana - Last Filed: 06/27/17 15:47> Subjective - Date & Time of Evaluation Date of Evaluation: 06/27/17 Time of Evaluation: 07:00 - Subjective Subjective: - Patient is seen and examined at bedside. Denies any overnight events. Patient is doing much better then yesterday. Is resting comfortably on nasal canula. Objective - Vital Signs/Intake and Output Vital Signs (last 24 hours): Temp Pulse Resp BP Pulse Ox 98.3 F 73 20 113/65 100 06/27/17 12:00 06/27/17 12:00 06/27/17 12:00 06/27/17 12:00 06/27/17 12:00 Intake and Output: 06/27/17 06/27/17 06:59 18:59 Intake Total 600 Output Total 500 Balance 100 - Medications Medications: Current Medications Acetaminophen (Tylenol 325mg Tab) 650 mg PO Q6 PRN PRN Reason: Pain, Mild (1-3) Last Admin: 06/25/17 22:28 Dose: 650 mg Acetaminophen (Tylenol 325mg Tab) 650 mg PO Q4 PRN PRN Reason: Fever >100.4 F, headache Albuterol/Ipratropium (Duoneb 3 Mg/0.5 Mg (3 Ml) Ud) 3 ml INH RQ4 [facility] Last Admin: 06/27/17 11:38 Dose: 3 ml Albuterol/Ipratropium (Duoneb 3 Mg/0.5 Mg (3 Ml) Ud) 3 ml IH Q6H PRN PRN Reason: Shortness of Breath Benzonatate (Tessalon Perles) 100 mg PO TID PRN PRN Reason: Cough Digoxin (Lanoxin) 0.125 mg PO DAILY [facility] Last Admin: 06/27/17 09:38 Dose: 0.125 mg Ferrous Sulfate (Feosol) 325 mg PO DAILY [facility] Last Admin: 06/27/17 09:37 Dose: 325 mg Fluconazole (Diflucan) 100 mg PO DAILY [facility] PRN Reason: Protocol Furosemide (Lasix) 40 mg IVP DAILY [facility] Last Admin: 06/27/17 09:39 Dose: 40 mg Gabapentin (Neurontin) 300 mg PO HS [facility] Last Admin: 06/26/17 21:00 Dose: 300 mg Clindamycin Phosphate 300 mg/ (Sodium Chloride) 52 mls @ 52 mls/hr IVPB Q8 [facility] PRN Reason: Protocol Last Admin: 06/27/17 09:35 Dose: 52 mls/hr Piperacillin Sod/Tazobactam Sod (Zosyn 4.5 Gm Iv Premix) 4.5 gm in 100 mls @ 100 mls/hr IVPB Q6 [facility] PRN Reason: Protocol Insulin Human Regular (Humulin R) 0 units SC ACCU-CHECK [facility] PRN Reason: Protocol Last Admin: 06/27/17 06:56 Dose: 4 units Lactobacillus Acidophilus (Bacid Acidophilus) 1 cap PO BID [facility] Last Admin: 06/27/17 09:36 Dose: 1 cap Magnesium Hydroxide (Milk Of Magnesia) 30 ml PO DAILY PRN PRN Reason: Constipation Methylprednisolone (Solu-Medrol) 30 mg IVP Q8 [facility] Last Admin: 06/27/17 00:23 Dose: 30 mg Metolazone (Zaroxolyn) 2.5 mg PO DAILY [facility] Last Admin: 06/27/17 09:40 Dose: 2.5 mg Nitroglycerin (Nitrostat Sl Tab) 0.4 mg SL Q5M PRN PRN Reason: Other Last Admin: 06/21/17 06:36 Dose: 0.4 mg Pantoprazole Sodium (Protonix Ec Tab) 40 mg PO DAILY [facility] Last Admin: 06/27/17 09:40 Dose: 40 mg Potassium Chloride (K-Dur 20 Meq Er Tab) 40 meq PO DAILY [facility] Last Admin: 06/27/17 09:38 Dose: 40 meq Rivaroxaban (Xarelto) 15 mg PO DAILY [facility] PRN Reason: Protocol Last Admin: 06/27/17 09:40 Dose: 15 mg Sitagliptin Phosphate (Januvia) 50 mg PO DAILY [facility] Last Admin: 06/27/17 09:37 Dose: 50 mg Tobramycin Sulfate (Tobrex 0.3% Ophth Soln) 1 drop OU TID [facility] Last Admin: 06/27/17 09:40 Dose: Not Given Valsartan (Diovan) 160 mg PO DAILY [facility] Last Admin: 06/27/17 09:37 Dose: 160 mg - Labs Labs: 06/27/17 04:20 06/27/17 04:20 - Constitutional Appears: No Acute Distress - Head Exam Head Exam: NORMAL INSPECTION - Eye Exam Eye Exam: Normal appearance - Respiratory Exam Respiratory Exam: Rales, Rhonchi, Wheezes, NORMAL BREATHING PATTERN - Cardiovascular Exam Cardiovascular Exam: REGULAR RHYTHM, +S1, +S2 - GI/Abdominal Exam GI & Abdominal Exam: Soft, Normal Bowel Sounds - Extremities Exam Extremities Exam: absent: Calf Tenderness - Neurological Exam Neurological Exam: Alert, Awake, CN II-XII Intact, Oriented x3 - Skin Skin Exam: Normal Color, Warm Assessment and Plan - Assessment and Plan (Free Text) Assessment: 1) Pnuemonia : HCAP vs Aspiration - X ray showed persistent right superior paramediastianal opacity, questionable significance, small right pleural effusion - CT showed b/l upper lobe infiltrates - WBC 16.8 - Pulm consult appreciated - ID consult appreciated - Zosyn and clindamycin 2) COPD exacerbation - duonebs 3mL Inh Q4h - Methylprednisolone 30 mg Q8 - ABG: PCO2: 54, PO2: 81, HCO3:38.9, PH: 7.51 - Encourage patient to continue Bipap 3) Left sided acute on chronic diastolic dysfunction with preserved EF. - previous echo reviewed : EF : 65- 75 % - Associate Professor Of Music: Dr. Jean consulted - last echo 05/15/2017 showed EF 60-65%, severe tricuspid regurgitation, severe pulmonary hypertension - Continue with Lasix 40 mg BID 4) Afib - home medication digoxin and Xarelto - has atrial sensed ventricular paced pacemaker 5) DVT prophylaxis -SCD - xaralto <Juan A Lawrence - Last Filed: 07/01/17 23:23> Objective - Vital Signs/Intake and Output Vital Signs (last 24 hours): Temp Pulse Resp BP Pulse Ox 98.1 F 77 18 127/61 100 07/01/17 20:09 07/01/17 20:09 07/01/17 20:09 07/01/17 20:09 07/01/17 20:09 Intake and Output: 07/01/17 07/02/17 18:59 06:59 Intake Total 900 Output Total 1600 Balance -700 - Medications Medications: Current Medications Acetaminophen (Tylenol 325mg Tab) 650 mg PO Q6 PRN PRN Reason: Pain, Mild (1-3) Last Admin: 06/29/17 16:37 Dose: 650 mg Acetaminophen (Tylenol 325mg Tab) 650 mg PO Q4 PRN PRN Reason: Fever >100.4 F, headache Albuterol/Ipratropium (Duoneb 3 Mg/0.5 Mg (3 Ml) Ud) 3 ml INH RQ4 [facility] Last Admin: 07/01/17 19:13 Dose: 3 ml Albuterol/Ipratropium (Duoneb 3 Mg/0.5 Mg (3 Ml) Ud) 3 ml IH Q6H PRN PRN Reason: Shortness of Breath Benzonatate (Tessalon Perles) 100 mg PO TID PRN PRN Reason: Cough Bismuth Subsalicylate (Pepto-Bismol) 262 mg PO TID [facility] Last Admin: 07/01/17 17:59 Dose: Not Given Digoxin (Lanoxin) 0.125 mg PO DAILY [facility] Last Admin: 07/01/17 09:56 Dose: 0.125 mg Ferrous Sulfate (Feosol) 325 mg PO DAILY [facility] Last Admin: 07/01/17 09:55 Dose: 325 mg Fluconazole (Diflucan) 100 mg PO DAILY [facility] PRN Reason: Protocol Last Admin: 07/01/17 09:54 Dose: 100 mg Furosemide (Lasix) 40 mg IVP DAILY [facility] Last Admin: 07/01/17 09:57 Dose: 40 mg Gabapentin (Neurontin) 300 mg PO HS [facility] Last Admin: 07/01/17 21:01 Dose: 300 mg Clindamycin Phosphate 300 mg/ (Sodium Chloride) 52 mls @ 52 mls/hr IVPB Q8 [facility] PRN Reason: Protocol Last Admin: 07/01/17 17:27 Dose: 52 mls/hr Meropenem 500 mg/ Sodium (Chloride) 100 mls @ 100 mls/hr IVPB Q8 [facility] PRN Reason: Protocol Last Admin: 07/01/17 17:27 Dose: 100 mls/hr Insulin Human Regular (Humulin R) 0 units SC ACCU-CHECK [facility] PRN Reason: Protocol Last Admin: 07/01/17 22:11 Dose: Not Given Lactobacillus Acidophilus (Bacid Acidophilus) 1 cap PO BID [facility] Last Admin: 07/01/17 17:27 Dose: 1 cap Magnesium Hydroxide (Milk Of Magnesia) 30 ml PO DAILY PRN PRN Reason: Constipation Methylprednisolone (Solu-Medrol) 30 mg IVP Q12 [facility] Last Admin: 07/01/17 21:02 Dose: 30 mg Metolazone (Zaroxolyn) 2.5 mg PO DAILY [facility] Last Admin: 07/01/17 10:00 Dose: 2.5 mg Nitroglycerin (Nitrostat Sl Tab) 0.4 mg SL Q5M PRN PRN Reason: Other Last Admin: 06/21/17 06:36 Dose: 0.4 mg Nystatin (Nystatin Oral Susp) 5 ml PO QID [facility] Last Admin: 07/01/17 21:01 Dose: 5 ml Pantoprazole Sodium (Protonix Ec Tab) 40 mg PO DAILY [facility] Last Admin: 07/01/17 09:59 Dose: 40 mg Potassium Chloride (K-Dur 20 Meq Er Tab) 40 meq PO DAILY [facility] Last Admin: 07/01/17 09:56 Dose: 40 meq Rivaroxaban (Xarelto) 15 mg PO DAILY [facility] PRN Reason: Protocol Last Admin: 07/01/17 10:00 Dose: 15 mg Sitagliptin Phosphate (Januvia) 50 mg PO DAILY [facility] Last Admin: 07/01/17 09:56 Dose: 50 mg Tobramycin Sulfate (Tobrex 0.3% Oph Soln) 1 drop OU TID [facility] Last Admin: 07/01/17 17:21 Dose: Not Given Valsartan (Diovan) 160 mg PO DAILY [facility] Last Admin: 07/01/17 09:55 Dose: 160 mg - Labs Labs: 06/30/17 06:30 06/30/17 07:30 Assessment and Plan (1) Pneumonia Status: Acute (2) Pulmonary hypertension Status: Chronic (3) Acute on chronic heart failure Status: Acute (4) Benign essential HTN Status: Acute (5) COPD exacerbation Status: Acute - Assessment and Plan (Free Text) Plan: I was present during evaluation and discussed with Dr Esther fuentes plans of care and mgt Juan A Lawrence M.D.
[2017-06-27] MEDS: Piperacill/Tazo 4.5gm in Dex 4.5 GM/100 ML BAG IVPB SCH ×2 (17:36→21:45)
[2017-06-28] MEDS: Albuterol-Ipratrop 3 mg / 0.5 (3 ml) UD INH SCH ×6 (00:12→19:37)
[2017-06-28] MEDS: MethylPREDNISolone 40 mg Vial IVP SCH ×3 (01:43→18:07)
[2017-06-28] MEDS: Clindamycin 300 MG in Sodium Chloride 0.9% 50 ML IVPB SCH ×3 (01:43→18:51)
[2017-06-28] MEDS: Piperacill/Tazo 4.5gm in Dex 4.5 GM/100 ML BAG IVPB SCH (04:18)
[2017-06-28 05:26] LABS: BLOOD UREA NITROGEN 43 mg/dl (7-17); CALCIUM 9.2 mg/dL (8.4-10.2); CARBON DIOXIDE 38 mmol/L (22-30); CHLORIDE 98 mmol/L (98-107); GFR AFRICAN-AMERICAN > 60; GLUCOSE,RANDOM 225 mg/dL (65-105); POTASSIUM 3.3 MMOL/L (3.6-5.0); SODIUM 143 mmol/l (132-148)
[2017-06-28 05:31] LABS: HEMATOCRIT 28.1 % (34.0-47.0); MEAN CELL VOLUME 94.2 fl (81.0-99.0); MEAN CORPUSCULAR HEMOGLOBIN 29.9 pg (27.0-31.0); MEAN CORPUSCULAR HGB CONC 31.7 g/dL (33.0-37.0); RED CELL DISTRIBUTION WIDTH 19.9 % (11.5-14.5); WHITE BLOOD COUNT 18.4 K/uL (4.8-10.8)
[2017-06-28] MEDS: Insulin Regular 100 units/ml SC SCH ×4 (06:44→23:42)
[2017-06-28] MEDS: Potassium Chloride 20 mEq ER Tab PO SCH (09:16)
[2017-06-28] MEDS: Digoxin 125 mcg (0.125 mg) Tab PO SCH (09:17)
[2017-06-28] MEDS: Pantoprazole 40 mg EC Tab PO SCH (09:18)
[2017-06-28] MEDS: Tobramycin 0.3% OPHT SOLN OU SCH ×3 (09:28→18:09)
[2017-06-28] MEDS: metOLazone 2.5 MG TAB PO SCH (09:29)
[2017-06-28] MEDS: Lactobacillus Acidophilus 500 MU Cap PO SCH ×2 (09:40→17:55)
[2017-06-28] MEDS: Potassium CL 10 MEQ/50 ML 50 ML IVPB SCH ×2 (10:51→12:33)
[2017-06-28] MEDS: Meropenem 500 MG in Sodium Chloride 0.9% 100 ML IVPB SCH ×2 (13:24→17:57)
--- NOTE | 2017-06-28 14:54 | CP.PCM.PN ---
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 DAY CT SCAN OF CHEST REVIEWED HAVE ADDED MEROPENEM IN PLACE OF ZOSYN TO COVER RESISTANT GRAM NEGATIVES Objective - Vital Signs/Intake and Output Vital Signs (last 24 hours): Temp Pulse Resp BP Pulse Ox 98.2 F 83 18 154/70 H 100 06/28/17 12:09 06/28/17 12:09 06/28/17 12:09 06/28/17 12:09 06/28/17 12:09 Intake and Output: 06/28/17 06/28/17 06:59 18:59 Intake Total 660 Output Total 600 Balance 60 - Medications Medications: Current Medications Acetaminophen (Tylenol 325mg Tab) 650 mg PO Q6 PRN PRN Reason: Pain, Mild (1-3) Last Admin: 06/25/17 22:28 Dose: 650 mg Acetaminophen (Tylenol 325mg Tab) 650 mg PO Q4 PRN PRN Reason: Fever >100.4 F, headache Albuterol/Ipratropium (Duoneb 3 Mg/0.5 Mg (3 Ml) Ud) 3 ml INH RQ4 [facility] Last Admin: 06/28/17 11:34 Dose: 3 ml Albuterol/Ipratropium (Duoneb 3 Mg/0.5 Mg (3 Ml) Ud) 3 ml IH Q6H PRN PRN Reason: Shortness of Breath Benzonatate (Tessalon Perles) 100 mg PO TID PRN PRN Reason: Cough Digoxin (Lanoxin) 0.125 mg PO DAILY [facility] Last Admin: 06/28/17 09:17 Dose: 0.125 mg Ferrous Sulfate (Feosol) 325 mg PO DAILY [facility] Last Admin: 06/28/17 09:16 Dose: 325 mg Fluconazole (Diflucan) 100 mg PO DAILY [facility] PRN Reason: Protocol Last Admin: 06/28/17 09:15 Dose: 100 mg Furosemide (Lasix) 40 mg IVP DAILY [facility] Last Admin: 06/28/17 09:18 Dose: 40 mg Gabapentin (Neurontin) 300 mg PO HS [facility] Last Admin: 06/27/17 21:45 Dose: 300 mg Clindamycin Phosphate 300 mg/ (Sodium Chloride) 52 mls @ 52 mls/hr IVPB Q8 [facility] PRN Reason: Protocol Last Admin: 06/28/17 09:35 Dose: 52 mls/hr Meropenem 500 mg/ Sodium (Chloride) 100 mls @ 100 mls/hr IVPB Q8 [facility] PRN Reason: Protocol Last Admin: 06/28/17 13:24 Dose: 100 mls/hr Insulin Human Regular (Humulin R) 0 units SC ACCU-CHECK [facility] PRN Reason: Protocol Last Admin: 06/28/17 13:22 Dose: 2 units Lactobacillus Acidophilus (Bacid Acidophilus) 1 cap PO BID [facility] Last Admin: 06/28/17 09:40 Dose: 1 cap Magnesium Hydroxide (Milk Of Magnesia) 30 ml PO DAILY PRN PRN Reason: Constipation Methylprednisolone (Solu-Medrol) 30 mg IVP Q8 [facility] Last Admin: 06/28/17 09:19 Dose: 30 mg Metolazone (Zaroxolyn) 2.5 mg PO DAILY [facility] Last Admin: 06/28/17 09:29 Dose: 2.5 mg Nitroglycerin (Nitrostat Sl Tab) 0.4 mg SL Q5M PRN PRN Reason: Other Last Admin: 06/21/17 06:36 Dose: 0.4 mg Nystatin (Nystatin Oral Susp) 5 ml PO QID [facility] Pantoprazole Sodium (Protonix Ec Tab) 40 mg PO DAILY [facility] Last Admin: 06/28/17 09:18 Dose: 40 mg Potassium Chloride (K-Dur 20 Meq Er Tab) 40 meq PO DAILY [facility] Last Admin: 06/28/17 09:16 Dose: 40 meq Rivaroxaban (Xarelto) 15 mg PO DAILY [facility] PRN Reason: Protocol Last Admin: 06/28/17 09:28 Dose: 15 mg Sitagliptin Phosphate (Januvia) 50 mg PO DAILY [facility] Last Admin: 06/28/17 09:16 Dose: 50 mg Tobramycin Sulfate (Tobrex 0.3% Ophth Soln) 1 drop OU TID [facility] Last Admin: 06/28/17 13:24 Dose: Not Given Valsartan (Diovan) 160 mg PO DAILY [facility] Last Admin: 06/28/17 09:43 Dose: 160 mg - Labs Labs: 06/28/17 04:10 06/28/17 04:10
[2017-06-28] MEDS: Nystatin 100,000 Units/ml Oral Susp 5 ml UD PO SCH ×2 (18:07→23:03)
--- NOTE | 2017-06-28 18:28 | CP.PCM.PN ---
Subjective - Date & Time of Evaluation Date of Evaluation: 06/28/17 Time of Evaluation: 12:00 - Subjective Subjective: F/U HCAP SOB , Chest congestion , Cough with yellowish flegm Objective - Vital Signs/Intake and Output Vital Signs (last 24 hours): Temp Pulse Resp BP Pulse Ox 98.6 F 84 16 125/66 100 06/28/17 16:50 06/28/17 16:50 06/28/17 16:50 06/28/17 16:50 06/28/17 16:50 Intake and Output: 06/28/17 06/28/17 06:59 18:59 Intake Total 660 Output Total 600 Balance 60 - Medications Medications: Current Medications Acetaminophen (Tylenol 325mg Tab) 650 mg PO Q6 PRN PRN Reason: Pain, Mild (1-3) Last Admin: 06/25/17 22:28 Dose: 650 mg Acetaminophen (Tylenol 325mg Tab) 650 mg PO Q4 PRN PRN Reason: Fever >100.4 F, headache Albuterol/Ipratropium (Duoneb 3 Mg/0.5 Mg (3 Ml) Ud) 3 ml INH RQ4 [facility] Last Admin: 06/28/17 15:26 Dose: 3 ml Albuterol/Ipratropium (Duoneb 3 Mg/0.5 Mg (3 Ml) Ud) 3 ml IH Q6H PRN PRN Reason: Shortness of Breath Benzonatate (Tessalon Perles) 100 mg PO TID PRN PRN Reason: Cough Digoxin (Lanoxin) 0.125 mg PO DAILY [facility] Last Admin: 06/28/17 09:17 Dose: 0.125 mg Ferrous Sulfate (Feosol) 325 mg PO DAILY [facility] Last Admin: 06/28/17 09:16 Dose: 325 mg Fluconazole (Diflucan) 100 mg PO DAILY [facility] PRN Reason: Protocol Last Admin: 06/28/17 09:15 Dose: 100 mg Furosemide (Lasix) 40 mg IVP DAILY [facility] Last Admin: 06/28/17 09:18 Dose: 40 mg Gabapentin (Neurontin) 300 mg PO HS [facility] Last Admin: 06/27/17 21:45 Dose: 300 mg Clindamycin Phosphate 300 mg/ (Sodium Chloride) 52 mls @ 52 mls/hr IVPB Q8 [facility] PRN Reason: Protocol Last Admin: 06/28/17 09:35 Dose: 52 mls/hr Meropenem 500 mg/ Sodium (Chloride) 100 mls @ 100 mls/hr IVPB Q8 [facility] PRN Reason: Protocol Last Admin: 06/28/17 17:57 Dose: 100 mls/hr Insulin Human Regular (Humulin R) 0 units SC ACCU-CHECK [facility] PRN Reason: Protocol Last Admin: 06/28/17 17:56 Dose: 6 units Lactobacillus Acidophilus (Bacid Acidophilus) 1 cap PO BID [facility] Last Admin: 06/28/17 17:55 Dose: 1 cap Magnesium Hydroxide (Milk Of Magnesia) 30 ml PO DAILY PRN PRN Reason: Constipation Methylprednisolone (Solu-Medrol) 30 mg IVP Q8 [facility] Last Admin: 06/28/17 18:07 Dose: 30 mg Metolazone (Zaroxolyn) 2.5 mg PO DAILY [facility] Last Admin: 06/28/17 09:29 Dose: 2.5 mg Nitroglycerin (Nitrostat Sl Tab) 0.4 mg SL Q5M PRN PRN Reason: Other Last Admin: 06/21/17 06:36 Dose: 0.4 mg Nystatin (Nystatin Oral Susp) 5 ml PO QID [facility] Last Admin: 06/28/17 18:07 Dose: 5 ml Pantoprazole Sodium (Protonix Ec Tab) 40 mg PO DAILY [facility] Last Admin: 06/28/17 09:18 Dose: 40 mg Potassium Chloride (K-Dur 20 Meq Er Tab) 40 meq PO DAILY [facility] Last Admin: 06/28/17 09:16 Dose: 40 meq Rivaroxaban (Xarelto) 15 mg PO DAILY [facility] PRN Reason: Protocol Last Admin: 06/28/17 09:28 Dose: 15 mg Sitagliptin Phosphate (Januvia) 50 mg PO DAILY [facility] Last Admin: 06/28/17 09:16 Dose: 50 mg Tobramycin Sulfate (Tobrex 0.3% Ophth Soln) 1 drop OU TID [facility] Last Admin: 06/28/17 18:09 Dose: Not Given Valsartan (Diovan) 160 mg PO DAILY [facility] Last Admin: 06/28/17 09:43 Dose: 160 mg - Labs Labs: 06/28/17 04:10 06/28/17 04:10 - Constitutional Appears: No Acute Distress, Chronically Ill - Head Exam Head Exam: NORMAL INSPECTION - Eye Exam Eye Exam: PERRL - ENT Exam ENT Exam: Normal Exam - Neck Exam Neck Exam: Normal Inspection - Respiratory Exam Respiratory Exam: Decreased Breath Sounds (b/l), Rhonchi (scattered), Wheezes ( scattered) - Cardiovascular Exam Cardiovascular Exam: REGULAR RHYTHM, Murmur (systoloc 3/6 LSB [place] radiated to Axilla) - GI/Abdominal Exam GI & Abdominal Exam: Soft, Normal Bowel Sounds - Extremities Exam Additional comments: Edema L/E 1+ non pitting - Neurological Exam Neurological Exam: Awake Additional comments: Ox2, generalized weakness - Psychiatric Exam Psychiatric exam: Normal Mood - Skin Skin Exam: Warm Assessment and Plan (1) HCAP (healthcare-associated pneumonia) Status: Acute (2) COPD (chronic obstructive pulmonary disease) Status: Chronic (3) Pulmonary hypertension Status: Chronic (4) Hypercapnic respiratory failure Status: Acute - Assessment and Plan (Free Text) Plan: Clinda , Carlene Cobian [place] , Julio, ID consult appreciated , contiinue rest of treatment
[2017-06-29] MEDS: MethylPREDNISolone 40 mg Vial IVP SCH ×3 (00:12→20:34)
[2017-06-29] MEDS: Clindamycin 300 MG in Sodium Chloride 0.9% 50 ML IVPB SCH ×3 (00:12→17:55)
[2017-06-29] MEDS: Meropenem 500 MG in Sodium Chloride 0.9% 100 ML IVPB SCH ×3 (00:13→16:22)
[2017-06-29] MEDS: Albuterol-Ipratrop 3 mg / 0.5 (3 ml) UD INH SCH ×6 (00:15→19:34)
[2017-06-29] MEDS: Insulin Regular 100 units/ml SC SCH ×4 (06:41→22:44)
[2017-06-29 07:36] LABS: HEMATOCRIT 29.3 % (34.0-47.0); MEAN CELL VOLUME 95.7 fl (81.0-99.0); MEAN CORPUSCULAR HEMOGLOBIN 29.5 pg (27.0-31.0); MEAN CORPUSCULAR HGB CONC 30.8 g/dL (33.0-37.0); RED CELL DISTRIBUTION WIDTH 20.2 % (11.5-14.5); WHITE BLOOD COUNT 18.7 K/uL (4.8-10.8)
[2017-06-29 07:44] LABS: BLOOD UREA NITROGEN 51 mg/dl (7-17); CALCIUM 9.3 mg/dL (8.4-10.2); CARBON DIOXIDE 32 mmol/L (22-30); CHLORIDE 100 mmol/L (98-107); GFR AFRICAN-AMERICAN > 60; GLUCOSE,RANDOM 190 mg/dL (65-105); SODIUM 142 mmol/l (132-148)
[2017-06-29] MEDS: Potassium Chloride 20 mEq ER Tab PO SCH (09:24)
[2017-06-29] MEDS: Digoxin 125 mcg (0.125 mg) Tab PO SCH (09:25)
[2017-06-29] MEDS: Nystatin 100,000 Units/ml Oral Susp 5 ml UD PO SCH ×4 (09:29→22:57)
[2017-06-29] MEDS: Pantoprazole 40 mg EC Tab PO SCH (09:30)
[2017-06-29] MEDS: metOLazone 2.5 MG TAB PO SCH (09:32)
[2017-06-29] MEDS: Tobramycin 0.3% OPHT SOLN OU SCH ×3 (09:32→16:26)
[2017-06-29] MEDS: Lactobacillus Acidophilus 500 MU Cap PO SCH ×2 (09:39→16:36)
--- NOTE | 2017-06-29 12:33 | CP.PCM.PN ---
<Benedict Santana - Last Filed: 06/29/17 12:38> Subjective - Date & Time of Evaluation Date of Evaluation: 06/29/17 Time of Evaluation: 08:00 - Subjective Subjective: Patient seen and examined at bedside with Dr. Lawrence. Patient appears to be doing well. Breathing comfortably without accessory muscle use. Denies any overnight events. Objective - Vital Signs/Intake and Output Vital Signs (last 24 hours): Temp Pulse Resp BP Pulse Ox 97.2 F L 70 18 149/73 100 06/29/17 08:00 06/29/17 09:00 06/29/17 08:00 06/29/17 09:25 06/29/17 08:00 Intake and Output: 06/29/17 06/29/17 06:59 18:59 Intake Total 185 Balance 185 - Medications Medications: Current Medications Acetaminophen (Tylenol 325mg Tab) 650 mg PO Q6 PRN PRN Reason: Pain, Mild (1-3) Last Admin: 06/25/17 22:28 Dose: 650 mg Acetaminophen (Tylenol 325mg Tab) 650 mg PO Q4 PRN PRN Reason: Fever >100.4 F, headache Albuterol/Ipratropium (Duoneb 3 Mg/0.5 Mg (3 Ml) Ud) 3 ml INH RQ4 [facility] Last Admin: 06/29/17 11:25 Dose: 3 ml Albuterol/Ipratropium (Duoneb 3 Mg/0.5 Mg (3 Ml) Ud) 3 ml IH Q6H PRN PRN Reason: Shortness of Breath Benzonatate (Tessalon Perles) 100 mg PO TID PRN PRN Reason: Cough Digoxin (Lanoxin) 0.125 mg PO DAILY [facility] Last Admin: 06/29/17 09:25 Dose: 0.125 mg Ferrous Sulfate (Feosol) 325 mg PO DAILY [facility] Last Admin: 06/29/17 09:23 Dose: 325 mg Fluconazole (Diflucan) 100 mg PO DAILY [facility] PRN Reason: Protocol Last Admin: 06/29/17 09:21 Dose: 100 mg Furosemide (Lasix) 40 mg IVP DAILY [facility] Last Admin: 06/29/17 09:25 Dose: 40 mg Gabapentin (Neurontin) 300 mg PO HS [facility] Last Admin: 06/28/17 23:04 Dose: 300 mg Clindamycin Phosphate 300 mg/ (Sodium Chloride) 52 mls @ 52 mls/hr IVPB Q8 [facility] PRN Reason: Protocol Last Admin: 06/29/17 11:27 Dose: 52 mls/hr Meropenem 500 mg/ Sodium (Chloride) 100 mls @ 100 mls/hr IVPB Q8 [facility] PRN Reason: Protocol Last Admin: 06/29/17 09:26 Dose: 100 mls/hr Insulin Human Regular (Humulin R) 0 units SC ACCU-CHECK [facility] PRN Reason: Protocol Last Admin: 06/29/17 06:41 Dose: 199 units Lactobacillus Acidophilus (Bacid Acidophilus) 1 cap PO BID [facility] Last Admin: 06/29/17 09:39 Dose: 1 cap Magnesium Hydroxide (Milk Of Magnesia) 30 ml PO DAILY PRN PRN Reason: Constipation Methylprednisolone (Solu-Medrol) 30 mg IVP Q12 [facility] Last Admin: 06/29/17 09:30 Dose: 30 mg Metolazone (Zaroxolyn) 2.5 mg PO DAILY [facility] Last Admin: 06/29/17 09:32 Dose: 2.5 mg Nitroglycerin (Nitrostat Sl Tab) 0.4 mg SL Q5M PRN PRN Reason: Other Last Admin: 06/21/17 06:36 Dose: 0.4 mg Nystatin (Nystatin Oral Susp) 5 ml PO QID [facility] Last Admin: 06/29/17 09:29 Dose: 5 ml Pantoprazole Sodium (Protonix Ec Tab) 40 mg PO DAILY [facility] Last Admin: 06/29/17 09:30 Dose: 40 mg Potassium Chloride (K-Dur 20 Meq Er Tab) 40 meq PO DAILY [facility] Last Admin: 06/29/17 09:24 Dose: 40 meq Rivaroxaban (Xarelto) 15 mg PO DAILY [facility] PRN Reason: Protocol Last Admin: 06/29/17 09:32 Dose: 15 mg Sitagliptin Phosphate (Januvia) 50 mg PO DAILY [facility] Last Admin: 06/29/17 09:23 Dose: 50 mg Tobramycin Sulfate (Tobrex 0.3% Oph Soln) 1 drop OU TID [facility] Last Admin: 06/29/17 09:32 Dose: Not Given Valsartan (Diovan) 160 mg PO DAILY [facility] Last Admin: 06/29/17 09:22 Dose: 160 mg - Labs Labs: 06/29/17 06:45 06/29/17 04:30 - Constitutional Appears: No Acute Distress - Head Exam Head Exam: NORMAL INSPECTION - Eye Exam Eye Exam: Normal appearance - Respiratory Exam Respiratory Exam: Decreased Breath Sounds, Rhonchi, NORMAL BREATHING PATTERN - Cardiovascular Exam Cardiovascular Exam: REGULAR RHYTHM, +S1, +S2 - GI/Abdominal Exam GI & Abdominal Exam: Soft, Normal Bowel Sounds. absent: Tenderness - Extremities Exam Extremities Exam: absent: Calf Tenderness - Neurological Exam Neurological Exam: Alert, Awake, CN II-XII Intact, Oriented x3 - Skin Skin Exam: Normal Color, Warm Assessment and Plan - Assessment and Plan (Free Text) Assessment: 1) Pnuemonia : HCAP vs Aspiration - X ray showed persistent right superior paramediastianal opacity, questionable significance, small right pleural effusion - CT showed b/l upper lobe infiltrates - WBC 18.7 - Pulm consult appreciated - ID consult appreciated -Meriopenum and Clindamycin 2) COPD exacerbation - duonebs 3mL Inh Q4h - Methylprednisolone 30 mg Q12 3) Left sided acute on chronic diastolic dysfunction with preserved EF. - previous echo reviewed : EF : 65- 75 % - Inside Sales Assistant: Dr. Jean consulted - last echo 05/15/2017 showed EF 60-65%, severe tricuspid regurgitation, severe pulmonary hypertension - Continue with Lasix 40 mg daily 4) Afib - home medication digoxin and Xarelto - has atrial sensed ventricular paced pacemaker 5) DVT prophylaxis -SCD - xaralto <Juan A Lawrence - Last Filed: 07/01/17 23:27> Objective - Vital Signs/Intake and Output Vital Signs (last 24 hours): Temp Pulse Resp BP Pulse Ox 98.1 F 77 18 127/61 100 07/01/17 20:09 07/01/17 20:09 07/01/17 20:09 07/01/17 20:09 07/01/17 20:09 Intake and Output: 07/01/17 07/02/17 18:59 06:59 Intake Total 900 Output Total 1600 Balance -700 - Medications Medications: Current Medications Acetaminophen (Tylenol 325mg Tab) 650 mg PO Q6 PRN PRN Reason: Pain, Mild (1-3) Last Admin: 06/29/17 16:37 Dose: 650 mg Acetaminophen (Tylenol 325mg Tab) 650 mg PO Q4 PRN PRN Reason: Fever >100.4 F, headache Albuterol/Ipratropium (Duoneb 3 Mg/0.5 Mg (3 Ml) Ud) 3 ml INH RQ4 [facility] Last Admin: 07/01/17 19:13 Dose: 3 ml Albuterol/Ipratropium (Duoneb 3 Mg/0.5 Mg (3 Ml) Ud) 3 ml IH Q6H PRN PRN Reason: Shortness of Breath Benzonatate (Tessalon Perles) 100 mg PO TID PRN PRN Reason: Cough Bismuth Subsalicylate (Pepto-Bismol) 262 mg PO TID [facility] Last Admin: 07/01/17 17:59 Dose: Not Given Digoxin (Lanoxin) 0.125 mg PO DAILY [facility] Last Admin: 07/01/17 09:56 Dose: 0.125 mg Ferrous Sulfate (Feosol) 325 mg PO DAILY [facility] Last Admin: 07/01/17 09:55 Dose: 325 mg Fluconazole (Diflucan) 100 mg PO DAILY [facility] PRN Reason: Protocol Last Admin: 07/01/17 09:54 Dose: 100 mg Furosemide (Lasix) 40 mg IVP DAILY [facility] Last Admin: 07/01/17 09:57 Dose: 40 mg Gabapentin (Neurontin) 300 mg PO HS [facility] Last Admin: 07/01/17 21:01 Dose: 300 mg Clindamycin Phosphate 300 mg/ (Sodium Chloride) 52 mls @ 52 mls/hr IVPB Q8 [facility] PRN Reason: Protocol Last Admin: 07/01/17 17:27 Dose: 52 mls/hr Meropenem 500 mg/ Sodium (Chloride) 100 mls @ 100 mls/hr IVPB Q8 [facility] PRN Reason: Protocol Last Admin: 07/01/17 17:27 Dose: 100 mls/hr Insulin Human Regular (Humulin R) 0 units SC ACCU-CHECK [facility] PRN Reason: Protocol Last Admin: 07/01/17 22:11 Dose: Not Given Lactobacillus Acidophilus (Bacid Acidophilus) 1 cap PO BID [facility] Last Admin: 07/01/17 17:27 Dose: 1 cap Magnesium Hydroxide (Milk Of Magnesia) 30 ml PO DAILY PRN PRN Reason: Constipation Methylprednisolone (Solu-Medrol) 30 mg IVP Q12 [facility] Last Admin: 07/01/17 21:02 Dose: 30 mg Metolazone (Zaroxolyn) 2.5 mg PO DAILY [facility] Last Admin: 07/01/17 10:00 Dose: 2.5 mg Nitroglycerin (Nitrostat Sl Tab) 0.4 mg SL Q5M PRN PRN Reason: Other Last Admin: 06/21/17 06:36 Dose: 0.4 mg Nystatin (Nystatin Oral Susp) 5 ml PO QID [facility] Last Admin: 07/01/17 21:01 Dose: 5 ml Pantoprazole Sodium (Protonix Ec Tab) 40 mg PO DAILY [facility] Last Admin: 07/01/17 09:59 Dose: 40 mg Potassium Chloride (K-Dur 20 Meq Er Tab) 40 meq PO DAILY [facility] Last Admin: 07/01/17 09:56 Dose: 40 meq Rivaroxaban (Xarelto) 15 mg PO DAILY [facility] PRN Reason: Protocol Last Admin: 07/01/17 10:00 Dose: 15 mg Sitagliptin Phosphate (Januvia) 50 mg PO DAILY [facility] Last Admin: 07/01/17 09:56 Dose: 50 mg Tobramycin Sulfate (Tobrex 0.3% [facility]) 1 drop OU TID [facility] Last Admin: 07/01/17 17:21 Dose: Not Given Valsartan (Diovan) 160 mg PO DAILY [facility] Last Admin: 07/01/17 09:55 Dose: 160 mg - Labs Labs: 06/30/17 06:30 06/30/17 07:30 Assessment and Plan (1) Pneumonia Status: Acute (2) Pulmonary hypertension Status: Chronic (3) Acute on chronic heart failure Status: Acute (4) Benign essential HTN Status: Acute (5) COPD exacerbation Status: Acute - Assessment and Plan (Free Text) Plan: I was present during evlaution and discussed with Dr Santana re plans of care and mgt Juan A Lawrence M.D.
--- NOTE | 2017-06-29 16:34 | CP.PCM.PN ---
Subjective - Date & Time of Evaluation Date of Evaluation: 06/29/17 Time of Evaluation: 12:30 - Subjective Subjective: SOB on NC O2, lack of apetite Objective - Vital Signs/Intake and Output Vital Signs (last 24 hours): Temp Pulse Resp BP Pulse Ox 97 F L 74 18 153/76 H 99 06/29/17 12:45 06/29/17 12:45 06/29/17 12:45 06/29/17 12:45 06/29/17 12:45 Intake and Output: 06/29/17 06/29/17 06:59 18:59 Intake Total 185 Balance 185 - Medications Medications: Current Medications Acetaminophen (Tylenol 325mg Tab) 650 mg PO Q6 PRN PRN Reason: Pain, Mild (1-3) Last Admin: 06/25/17 22:28 Dose: 650 mg Acetaminophen (Tylenol 325mg Tab) 650 mg PO Q4 PRN PRN Reason: Fever >100.4 F, headache Albuterol/Ipratropium (Duoneb 3 Mg/0.5 Mg (3 Ml) Ud) 3 ml INH RQ4 [facility] Last Admin: 06/29/17 15:48 Dose: 3 ml Albuterol/Ipratropium (Duoneb 3 Mg/0.5 Mg (3 Ml) Ud) 3 ml IH Q6H PRN PRN Reason: Shortness of Breath Benzonatate (Tessalon Perles) 100 mg PO TID PRN PRN Reason: Cough Digoxin (Lanoxin) 0.125 mg PO DAILY [facility] Last Admin: 06/29/17 09:25 Dose: 0.125 mg Ferrous Sulfate (Feosol) 325 mg PO DAILY [facility] Last Admin: 06/29/17 09:23 Dose: 325 mg Fluconazole (Diflucan) 100 mg PO DAILY [facility] PRN Reason: Protocol Last Admin: 06/29/17 09:21 Dose: 100 mg Furosemide (Lasix) 40 mg IVP DAILY [facility] Last Admin: 06/29/17 09:25 Dose: 40 mg Gabapentin (Neurontin) 300 mg PO HS [facility] Last Admin: 06/28/17 23:04 Dose: 300 mg Clindamycin Phosphate 300 mg/ (Sodium Chloride) 52 mls @ 52 mls/hr IVPB Q8 [facility] PRN Reason: Protocol Last Admin: 06/29/17 11:27 Dose: 52 mls/hr Meropenem 500 mg/ Sodium (Chloride) 100 mls @ 100 mls/hr IVPB Q8 [facility] PRN Reason: Protocol Last Admin: 06/29/17 16:22 Dose: 100 mls/hr Insulin Human Regular (Humulin R) 0 units SC ACCU-CHECK [facility] PRN Reason: Protocol Last Admin: 06/29/17 13:33 Dose: 8 units Lactobacillus Acidophilus (Bacid Acidophilus) 1 cap PO BID [facility] Last Admin: 06/29/17 09:39 Dose: 1 cap Magnesium Hydroxide (Milk Of Magnesia) 30 ml PO DAILY PRN PRN Reason: Constipation Methylprednisolone (Solu-Medrol) 30 mg IVP Q12 [facility] Last Admin: 06/29/17 09:30 Dose: 30 mg Metolazone (Zaroxolyn) 2.5 mg PO DAILY [facility] Last Admin: 06/29/17 09:32 Dose: 2.5 mg Nitroglycerin (Nitrostat Sl Tab) 0.4 mg SL Q5M PRN PRN Reason: Other Last Admin: 06/21/17 06:36 Dose: 0.4 mg Nystatin (Nystatin Oral Susp) 5 ml PO QID [facility] Last Admin: 06/29/17 16:26 Dose: 5 ml Pantoprazole Sodium (Protonix Ec Tab) 40 mg PO DAILY [facility] Last Admin: 06/29/17 09:30 Dose: 40 mg Potassium Chloride (K-Dur 20 Meq Er Tab) 40 meq PO DAILY [facility] Last Admin: 06/29/17 09:24 Dose: 40 meq Rivaroxaban (Xarelto) 15 mg PO DAILY [facility] PRN Reason: Protocol Last Admin: 06/29/17 09:32 Dose: 15 mg Sitagliptin Phosphate (Januvia) 50 mg PO DAILY [facility] Last Admin: 06/29/17 09:23 Dose: 50 mg Tobramycin Sulfate (Tobrex 0.3% Ophth Soln) 1 drop OU TID [facility] Last Admin: 06/29/17 16:26 Dose: Not Given Valsartan (Diovan) 160 mg PO DAILY [facility] Last Admin: 06/29/17 09:22 Dose: 160 mg - Labs Labs: 06/29/17 06:45 06/29/17 04:30 - Constitutional Appears: Cachectic, Chronically Ill - Head Exam Head Exam: NORMAL INSPECTION - Eye Exam Eye Exam: PERRL - ENT Exam ENT Exam: Normal Exam - Neck Exam Neck Exam: Normal Inspection - Respiratory Exam Respiratory Exam: Rhonchi - Cardiovascular Exam Cardiovascular Exam: REGULAR RHYTHM, Murmur - GI/Abdominal Exam GI & Abdominal Exam: Soft, Normal Bowel Sounds - Extremities Exam Extremities Exam: Normal Inspection - Back Exam Back Exam: NORMAL INSPECTION - Neurological Exam Neurological Exam: Awake Additional comments: Forgetful , generalized weakness - Psychiatric Exam Psychiatric exam: Depressed - Skin Skin Exam: Warm Assessment and Plan (1) HCAP (healthcare-associated pneumonia) Status: Acute (2) COPD (chronic obstructive pulmonary disease) Status: Chronic (3) Pulmonary hypertension Status: Chronic (4) Hypercapnic respiratory failure Status: Acute - Assessment and Plan (Free Text) Plan: CT Chest multifocal PNA worst RUL , on Merren , ID DC Zosyn to increase G (-) coverage, continue Clinda , Diflucan , Solu Medrol , DuoNeb
[2017-06-29] MEDS ORDERED: Alum-Mag Hydrox-Simethicone Susp (30 mL) PO ONE (20:00)
[2017-06-30] MEDS: Albuterol-Ipratrop 3 mg / 0.5 (3 ml) UD INH SCH ×7 (00:39→23:31)
[2017-06-30] MEDS: Clindamycin 300 MG in Sodium Chloride 0.9% 50 ML IVPB SCH ×3 (01:05→17:02)
[2017-06-30] MEDS: Meropenem 500 MG in Sodium Chloride 0.9% 100 ML IVPB SCH ×3 (02:12→17:01)
[2017-06-30 08:03] LABS: HEMATOCRIT 27.5 % (34.0-47.0); MEAN CELL VOLUME 94.2 fl (81.0-99.0); MEAN CORPUSCULAR HEMOGLOBIN 29.5 pg (27.0-31.0); MEAN CORPUSCULAR HGB CONC 31.3 g/dL (33.0-37.0); RED CELL DISTRIBUTION WIDTH 20.5 % (11.5-14.5); WHITE BLOOD COUNT 18.5 K/uL (4.8-10.8)
[2017-06-30 08:17] LABS: ALB/GLOB RATIO 1.4 (1.0-2.1); ALKALINE PHOSPHATASE 53 U/L (38-126); ALT/SGPT 35 U/L (9-52); AST/SGOT 42 U/L (14-36); BILIRUBIN,TOTAL 0.5 mg/dl (0.2-1.3); BLOOD UREA NITROGEN 54 mg/dl (7-17); CALCIUM 8.9 mg/dL (8.4-10.2); CARBON DIOXIDE 37 mmol/L (22-30); CHLORIDE 98 mmol/L (98-107); GFR AFRICAN-AMERICAN > 60; GLUCOSE,RANDOM 187 mg/dL (65-105); SODIUM 142 mmol/l (132-148); TOTAL PROTEIN 5.3 G/DL (6.3-8.2)
[2017-06-30] MEDS: Lactobacillus Acidophilus 500 MU Cap PO SCH ×2 (10:24→17:05)
[2017-06-30] MEDS: Digoxin 125 mcg (0.125 mg) Tab PO SCH (10:27)
[2017-06-30] MEDS: Potassium Chloride 20 mEq ER Tab PO SCH (10:27)
[2017-06-30] MEDS: Nystatin 100,000 Units/ml Oral Susp 5 ml UD PO SCH ×4 (10:29→21:13)
[2017-06-30] MEDS: Pantoprazole 40 mg EC Tab PO SCH (10:29)
[2017-06-30] MEDS: MethylPREDNISolone 40 mg Vial IVP SCH ×2 (10:30→21:14)
[2017-06-30] MEDS: Tobramycin 0.3% OPHT SOLN OU SCH ×3 (10:31→17:07)
[2017-06-30] MEDS: metOLazone 2.5 MG TAB PO SCH (10:31)
--- NOTE | 2017-06-30 11:29 | RAD ---
HISTORY: pneumonia COMPARISON: 06/25/2017 FINDINGS: LUNGS: There is persistent severe pulmonary venous congestion. There is interval improved aeration in the right upper lobe. PLEURA: There are small pleural effusions, larger on the right. No pneumothorax apparent. CARDIOVASCULAR: Persistent cardiomegaly. Status post CABG. Atherosclerotic aortic arch calcifications are present. . There is stable position of a left-sided dual lead transvenous permanent pacing device. OSSEOUS STRUCTURES: No significant abnormalities. VISUALIZED UPPER ABDOMEN: Normal. OTHER FINDINGS: None. IMPRESSION: Congestive heart failure, no significant interval change.
[2017-06-30] MEDS: Insulin Regular 100 units/ml SC SCH ×3 (12:00→23:01)
--- NOTE | 2017-06-30 12:47 | CP.PCM.PN ---
Subjective - Subjective Subjective: Breathing better today , no SOB with NC O2 , BM 's post pandrial , but no diarrhea according to nurses Objective - Vital Signs/Intake and Output Vital Signs (last 24 hours): Temp Pulse Resp BP Pulse Ox 98.4 F 78 19 131/68 100 06/30/17 08:15 06/30/17 08:15 06/30/17 08:15 06/30/17 10:27 06/30/17 08:15 Intake and Output: 06/30/17 06/30/17 06:59 18:59 Intake Total 240 Output Total 600 Balance -360 - Medications Medications: Current Medications Acetaminophen (Tylenol 325mg Tab) 650 mg PO Q6 PRN PRN Reason: Pain, Mild (1-3) Last Admin: 06/29/17 16:37 Dose: 650 mg Acetaminophen (Tylenol 325mg Tab) 650 mg PO Q4 PRN PRN Reason: Fever >100.4 F, headache Albuterol/Ipratropium (Duoneb 3 Mg/0.5 Mg (3 Ml) Ud) 3 ml INH RQ4 [facility] Last Admin: 06/30/17 11:18 Dose: 3 ml Albuterol/Ipratropium (Duoneb 3 Mg/0.5 Mg (3 Ml) Ud) 3 ml IH Q6H PRN PRN Reason: Shortness of Breath Benzonatate (Tessalon Perles) 100 mg PO TID PRN PRN Reason: Cough Digoxin (Lanoxin) 0.125 mg PO DAILY [facility] Last Admin: 06/30/17 10:27 Dose: 0.125 mg Ferrous Sulfate (Feosol) 325 mg PO DAILY [facility] Last Admin: 06/30/17 10:26 Dose: 325 mg Fluconazole (Diflucan) 100 mg PO DAILY [facility] PRN Reason: Protocol Last Admin: 06/30/17 10:25 Dose: 100 mg Furosemide (Lasix) 40 mg IVP DAILY [facility] Last Admin: 06/30/17 10:27 Dose: 40 mg Gabapentin (Neurontin) 300 mg PO HS [facility] Last Admin: 06/29/17 22:57 Dose: 300 mg Clindamycin Phosphate 300 mg/ (Sodium Chloride) 52 mls @ 52 mls/hr IVPB Q8 [facility] PRN Reason: Protocol Last Admin: 06/30/17 10:24 Dose: 52 mls/hr Meropenem 500 mg/ Sodium (Chloride) 100 mls @ 100 mls/hr IVPB Q8 [facility] PRN Reason: Protocol Last Admin: 06/30/17 10:28 Dose: 100 mls/hr Insulin Human Regular (Humulin R) 0 units SC ACCU-CHECK [facility] PRN Reason: Protocol Last Admin: 06/29/17 22:44 Dose: Not Given Lactobacillus Acidophilus (Bacid Acidophilus) 1 cap PO BID [facility] Last Admin: 06/30/17 10:24 Dose: 1 cap Magnesium Hydroxide (Milk Of Magnesia) 30 ml PO DAILY PRN PRN Reason: Constipation Methylprednisolone (Solu-Medrol) 30 mg IVP Q12 [facility] Last Admin: 06/30/17 10:30 Dose: 30 mg Metolazone (Zaroxolyn) 2.5 mg PO DAILY [facility] Last Admin: 06/30/17 10:31 Dose: 2.5 mg Nitroglycerin (Nitrostat Sl Tab) 0.4 mg SL Q5M PRN PRN Reason: Other Last Admin: 06/21/17 06:36 Dose: 0.4 mg Nystatin (Nystatin Oral Susp) 5 ml PO QID [facility] Last Admin: 06/30/17 10:29 Dose: 5 ml Pantoprazole Sodium (Protonix Ec Tab) 40 mg PO DAILY [facility] Last Admin: 06/30/17 10:29 Dose: 40 mg Potassium Chloride (K-Dur 20 Meq Er Tab) 40 meq PO DAILY [facility] Last Admin: 06/30/17 10:27 Dose: 40 meq Rivaroxaban (Xarelto) 15 mg PO DAILY [facility] PRN Reason: Protocol Last Admin: 06/30/17 10:31 Dose: 15 mg Sitagliptin Phosphate (Januvia) 50 mg PO DAILY [facility] Last Admin: 06/30/17 10:26 Dose: 50 mg Tobramycin Sulfate (Tobrex 0.3% Ophth Soln) 1 drop OU TID [facility] Last Admin: 06/30/17 10:31 Dose: Not Given Valsartan (Diovan) 160 mg PO DAILY [facility] Last Admin: 06/30/17 10:26 Dose: 160 mg - Labs Labs: 06/30/17 06:30 06/30/17 07:30 - Constitutional Appears: Chronically Ill - Head Exam Head Exam: NORMAL INSPECTION - Eye Exam Eye Exam: PERRL - ENT Exam ENT Exam: Normal Exam - Neck Exam Neck Exam: Normal Inspection - Respiratory Exam Respiratory Exam: Decreased Breath Sounds (at bases), Rales (few at bases), Rhonchi (scattered) - Cardiovascular Exam Cardiovascular Exam: Murmur - GI/Abdominal Exam GI & Abdominal Exam: Soft, Normal Bowel Sounds - Extremities Exam Extremities Exam: Normal Inspection - Back Exam Back Exam: NORMAL INSPECTION - Neurological Exam Neurological Exam: CN II-XII Intact (generalized weakness , no focal motor/ sensory deficit) - Psychiatric Exam Psychiatric exam: Anxious - Skin Skin Exam: Warm Assessment and Plan (1) HCAP (healthcare-associated pneumonia) Status: Acute (2) COPD (chronic obstructive pulmonary disease) Status: Chronic (3) Pulmonary hypertension Status: Chronic (4) Hypercapnic respiratory failure Status: Acute - Assessment and Plan (Free Text) Plan: CXR CHF no significant change , continue Clinda , Diflucan , Merren , DuoNeb and rest of treatment for CHF, A Fib
[2017-06-30] MEDS: Bismuth Subsalicylate 262 mg/15 ml Sus (240 ml) PO SCH (17:06)
[2017-07-01] MEDS: Clindamycin 300 MG in Sodium Chloride 0.9% 50 ML IVPB SCH ×3 (01:50→17:27)
[2017-07-01] MEDS: Meropenem 500 MG in Sodium Chloride 0.9% 100 ML IVPB SCH ×3 (01:51→17:27)
[2017-07-01] MEDS: Albuterol-Ipratrop 3 mg / 0.5 (3 ml) UD INH SCH ×5 (04:50→19:13)
[2017-07-01] MEDS: Lactobacillus Acidophilus 500 MU Cap PO SCH ×2 (09:53→17:27)
[2017-07-01] MEDS: Insulin Regular 100 units/ml SC SCH ×5 (09:55→22:11)
[2017-07-01] MEDS: Digoxin 125 mcg (0.125 mg) Tab PO SCH (09:56)
[2017-07-01] MEDS: Potassium Chloride 20 mEq ER Tab PO SCH (09:56)
[2017-07-01] MEDS: Nystatin 100,000 Units/ml Oral Susp 5 ml UD PO SCH ×4 (09:58→21:01)
[2017-07-01] MEDS: Pantoprazole 40 mg EC Tab PO SCH (09:59)
[2017-07-01] MEDS: Bismuth Subsalicylate 262 mg/15 ml Sus (240 ml) PO SCH ×3 (09:59→17:59)
[2017-07-01] MEDS: MethylPREDNISolone 40 mg Vial IVP SCH ×2 (09:59→21:02)
[2017-07-01] MEDS: Tobramycin 0.3% OPHT SOLN OU SCH ×3 (10:00→17:21)
[2017-07-01] MEDS: metOLazone 2.5 MG TAB PO SCH (10:00)
--- NOTE | 2017-07-01 15:59 | CP.PCM.PN ---
Subjective - Date & Time of Evaluation Date of Evaluation: 07/01/17 Time of Evaluation: 12:30 - Subjective Subjective: F/U HCAP Pt breathing better, less SOB Objective - Vital Signs/Intake and Output Vital Signs (last 24 hours): Temp Pulse Resp BP Pulse Ox 97.4 F L 75 20 114/64 98 07/01/17 12:00 07/01/17 12:00 07/01/17 12:00 07/01/17 12:00 07/01/17 12:00 - Medications Medications: Current Medications Acetaminophen (Tylenol 325mg Tab) 650 mg PO Q6 PRN PRN Reason: Pain, Mild (1-3) Last Admin: 06/29/17 16:37 Dose: 650 mg Acetaminophen (Tylenol 325mg Tab) 650 mg PO Q4 PRN PRN Reason: Fever >100.4 F, headache Albuterol/Ipratropium (Duoneb 3 Mg/0.5 Mg (3 Ml) Ud) 3 ml INH RQ4 [facility] Last Admin: 07/01/17 15:40 Dose: 3 ml Albuterol/Ipratropium (Duoneb 3 Mg/0.5 Mg (3 Ml) Ud) 3 ml IH Q6H PRN PRN Reason: Shortness of Breath Benzonatate (Tessalon Perles) 100 mg PO TID PRN PRN Reason: Cough Bismuth Subsalicylate (Pepto-Bismol) 262 mg PO TID [facility] Last Admin: 07/01/17 12:52 Dose: 262 mg Digoxin (Lanoxin) 0.125 mg PO DAILY [facility] Last Admin: 07/01/17 09:56 Dose: 0.125 mg Ferrous Sulfate (Feosol) 325 mg PO DAILY [facility] Last Admin: 07/01/17 09:55 Dose: 325 mg Fluconazole (Diflucan) 100 mg PO DAILY [facility] PRN Reason: Protocol Last Admin: 07/01/17 09:54 Dose: 100 mg Furosemide (Lasix) 40 mg IVP DAILY [facility] Last Admin: 07/01/17 09:57 Dose: 40 mg Gabapentin (Neurontin) 300 mg PO HS [facility] Last Admin: 06/30/17 21:13 Dose: 300 mg Clindamycin Phosphate 300 mg/ (Sodium Chloride) 52 mls @ 52 mls/hr IVPB Q8 [facility] PRN Reason: Protocol Last Admin: 07/01/17 09:54 Dose: 52 mls/hr Meropenem 500 mg/ Sodium (Chloride) 100 mls @ 100 mls/hr IVPB Q8 [facility] PRN Reason: Protocol Last Admin: 07/01/17 09:57 Dose: 100 mls/hr Insulin Human Regular (Humulin R) 0 units SC ACCU-CHECK [facility] PRN Reason: Protocol Last Admin: 07/01/17 12:52 Dose: 4 units Lactobacillus Acidophilus (Bacid Acidophilus) 1 cap PO BID [facility] Last Admin: 07/01/17 09:53 Dose: 1 cap Magnesium Hydroxide (Milk Of Magnesia) 30 ml PO DAILY PRN PRN Reason: Constipation Methylprednisolone (Solu-Medrol) 30 mg IVP Q12 [facility] Last Admin: 07/01/17 09:59 Dose: 30 mg Metolazone (Zaroxolyn) 2.5 mg PO DAILY [facility] Last Admin: 07/01/17 10:00 Dose: 2.5 mg Nitroglycerin (Nitrostat Sl Tab) 0.4 mg SL Q5M PRN PRN Reason: Other Last Admin: 06/21/17 06:36 Dose: 0.4 mg Nystatin (Nystatin Oral Susp) 5 ml PO QID [facility] Last Admin: 07/01/17 12:52 Dose: 5 ml Pantoprazole Sodium (Protonix Ec Tab) 40 mg PO DAILY [facility] Last Admin: 07/01/17 09:59 Dose: 40 mg Potassium Chloride (K-Dur 20 Meq Er Tab) 40 meq PO DAILY [facility] Last Admin: 07/01/17 09:56 Dose: 40 meq Rivaroxaban (Xarelto) 15 mg PO DAILY [facility] PRN Reason: Protocol Last Admin: 07/01/17 10:00 Dose: 15 mg Sitagliptin Phosphate (Januvia) 50 mg PO DAILY [facility] Last Admin: 07/01/17 09:56 Dose: 50 mg Tobramycin Sulfate (Tobrex 0.3% Ophth Soln) 1 drop OU TID [facility] Last Admin: 07/01/17 12:52 Dose: 1 drop Valsartan (Diovan) 160 mg PO DAILY [facility] Last Admin: 07/01/17 09:55 Dose: 160 mg - Labs Labs: 06/30/17 06:30 06/30/17 07:30 - Constitutional Appears: No Acute Distress, Chronically Ill - Head Exam Head Exam: NORMAL INSPECTION - Eye Exam Eye Exam: PERRL - ENT Exam ENT Exam: Normal Exam - Neck Exam Neck Exam: Normal Inspection - Respiratory Exam Respiratory Exam: Decreased Breath Sounds (at bases), Rhonchi (scattered) - Cardiovascular Exam Cardiovascular Exam: REGULAR RHYTHM, Murmur - GI/Abdominal Exam GI & Abdominal Exam: Soft, Normal Bowel Sounds - Extremities Exam Extremities Exam: Normal Inspection - Back Exam Back Exam: NORMAL INSPECTION - Neurological Exam Neurological Exam: Awake, CN II-XII Intact (Generalized weakness, no focal motor /sensory deficit) - Psychiatric Exam Psychiatric exam: Anxious - Skin Skin Exam: Warm Assessment and Plan (1) HCAP (healthcare-associated pneumonia) Status: Acute (2) COPD (chronic obstructive pulmonary disease) Status: Chronic (3) Pulmonary hypertension Status: Chronic (4) Hypercapnic respiratory failure Status: Acute - Assessment and Plan (Free Text) Plan: CXR: Improved aeration RUL, continue Merrem, Clinda, Solumedrol, Duoneb and rest of Tx.
--- NOTE | 2017-07-01 23:07 | CP.PCM.PN ---
Subjective - Date & Time of Evaluation Date of Evaluation: 06/30/17 Time of Evaluation: 10:00 - Subjective Subjective: Patient remains stable Still feels very weak Has no fever Noted improvement of appetite and noted increased intake Still with cough and occasional SOB Objective - Vital Signs/Intake and Output Vital Signs (last 24 hours): Temp Pulse Resp BP Pulse Ox 98.1 F 77 18 127/61 100 07/01/17 20:09 07/01/17 20:09 07/01/17 20:09 07/01/17 20:09 07/01/17 20:09 Intake and Output: 07/01/17 07/02/17 18:59 06:59 Intake Total 900 Output Total 1600 Balance -700 - Medications Medications: Current Medications Acetaminophen (Tylenol 325mg Tab) 650 mg PO Q6 PRN PRN Reason: Pain, Mild (1-3) Last Admin: 06/29/17 16:37 Dose: 650 mg Acetaminophen (Tylenol 325mg Tab) 650 mg PO Q4 PRN PRN Reason: Fever >100.4 F, headache Albuterol/Ipratropium (Duoneb 3 Mg/0.5 Mg (3 Ml) Ud) 3 ml INH RQ4 [facility] Last Admin: 07/01/17 19:13 Dose: 3 ml Albuterol/Ipratropium (Duoneb 3 Mg/0.5 Mg (3 Ml) Ud) 3 ml IH Q6H PRN PRN Reason: Shortness of Breath Benzonatate (Tessalon Perles) 100 mg PO TID PRN PRN Reason: Cough Bismuth Subsalicylate (Pepto-Bismol) 262 mg PO TID [facility] Last Admin: 07/01/17 17:59 Dose: Not Given Digoxin (Lanoxin) 0.125 mg PO DAILY [facility] Last Admin: 07/01/17 09:56 Dose: 0.125 mg Ferrous Sulfate (Feosol) 325 mg PO DAILY [facility] Last Admin: 07/01/17 09:55 Dose: 325 mg Fluconazole (Diflucan) 100 mg PO DAILY [facility] PRN Reason: Protocol Last Admin: 07/01/17 09:54 Dose: 100 mg Furosemide (Lasix) 40 mg IVP DAILY [facility] Last Admin: 07/01/17 09:57 Dose: 40 mg Gabapentin (Neurontin) 300 mg PO HS [facility] Last Admin: 07/01/17 21:01 Dose: 300 mg Clindamycin Phosphate 300 mg/ (Sodium Chloride) 52 mls @ 52 mls/hr IVPB Q8 [facility] PRN Reason: Protocol Last Admin: 07/01/17 17:27 Dose: 52 mls/hr Meropenem 500 mg/ Sodium (Chloride) 100 mls @ 100 mls/hr IVPB Q8 [facility] PRN Reason: Protocol Last Admin: 07/01/17 17:27 Dose: 100 mls/hr Insulin Human Regular (Humulin R) 0 units SC ACCU-CHECK [facility] PRN Reason: Protocol Last Admin: 07/01/17 22:11 Dose: Not Given Lactobacillus Acidophilus (Bacid Acidophilus) 1 cap PO BID [facility] Last Admin: 07/01/17 17:27 Dose: 1 cap Magnesium Hydroxide (Milk Of Magnesia) 30 ml PO DAILY PRN PRN Reason: Constipation Methylprednisolone (Solu-Medrol) 30 mg IVP Q12 [facility] Last Admin: 07/01/17 21:02 Dose: 30 mg Metolazone (Zaroxolyn) 2.5 mg PO DAILY [facility] Last Admin: 07/01/17 10:00 Dose: 2.5 mg Nitroglycerin (Nitrostat Sl Tab) 0.4 mg SL Q5M PRN PRN Reason: Other Last Admin: 06/21/17 06:36 Dose: 0.4 mg Nystatin (Nystatin Oral Susp) 5 ml PO QID [facility] Last Admin: 07/01/17 21:01 Dose: 5 ml Pantoprazole Sodium (Protonix Ec Tab) 40 mg PO DAILY [facility] Last Admin: 07/01/17 09:59 Dose: 40 mg Potassium Chloride (K-Dur 20 Meq Er Tab) 40 meq PO DAILY [facility] Last Admin: 07/01/17 09:56 Dose: 40 meq Rivaroxaban (Xarelto) 15 mg PO DAILY [facility] PRN Reason: Protocol Last Admin: 07/01/17 10:00 Dose: 15 mg Sitagliptin Phosphate (Januvia) 50 mg PO DAILY [facility] Last Admin: 07/01/17 09:56 Dose: 50 mg Tobramycin Sulfate (Tobrex 0.3% Ophth Soln) 1 drop OU TID [facility] Last Admin: 07/01/17 17:21 Dose: Not Given Valsartan (Diovan) 160 mg PO DAILY [facility] Last Admin: 07/01/17 09:55 Dose: 160 mg - Labs Labs: 06/30/17 06:30 06/30/17 07:30 - Head Exam Head Exam: NORMAL INSPECTION - Eye Exam Eye Exam: Normal appearance - Respiratory Exam Respiratory Exam: Rales - Cardiovascular Exam Cardiovascular Exam: REGULAR RHYTHM - GI/Abdominal Exam GI & Abdominal Exam: Normal Bowel Sounds - Neurological Exam Neurological Exam: Awake, Oriented x3 Assessment and Plan (1) Pneumonia Status: Acute (2) Pulmonary hypertension Status: Chronic (3) Acute on chronic heart failure Status: Acute (4) Benign essential HTN Status: Acute (5) COPD exacerbation Status: Acute - Assessment and Plan (Free Text) Plan: Cont meds Cont tx Cont iV antibiotics cont PT encouraged ambulation Dc rao cath
--- NOTE | 2017-07-01 23:11 | CP.PCM.PN ---
Subjective - Date & Time of Evaluation Date of Evaluation: 07/01/17 Time of Evaluation: 09:30 - Subjective Subjective: Patient feels a lot better today Has no chest pain or SOB Has better appetite Still with cough. Objective - Vital Signs/Intake and Output Vital Signs (last 24 hours): Temp Pulse Resp BP Pulse Ox 98.1 F 77 18 127/61 100 07/01/17 20:09 07/01/17 20:09 07/01/17 20:09 07/01/17 20:09 07/01/17 20:09 Intake and Output: 07/01/17 07/02/17 18:59 06:59 Intake Total 900 Output Total 1600 Balance -700 - Medications Medications: Current Medications Acetaminophen (Tylenol 325mg Tab) 650 mg PO Q6 PRN PRN Reason: Pain, Mild (1-3) Last Admin: 06/29/17 16:37 Dose: 650 mg Acetaminophen (Tylenol 325mg Tab) 650 mg PO Q4 PRN PRN Reason: Fever >100.4 F, headache Albuterol/Ipratropium (Duoneb 3 Mg/0.5 Mg (3 Ml) Ud) 3 ml INH RQ4 [facility] Last Admin: 07/01/17 19:13 Dose: 3 ml Albuterol/Ipratropium (Duoneb 3 Mg/0.5 Mg (3 Ml) Ud) 3 ml IH Q6H PRN PRN Reason: Shortness of Breath Benzonatate (Tessalon Perles) 100 mg PO TID PRN PRN Reason: Cough Bismuth Subsalicylate (Pepto-Bismol) 262 mg PO TID [facility] Last Admin: 07/01/17 17:59 Dose: Not Given Digoxin (Lanoxin) 0.125 mg PO DAILY [facility] Last Admin: 07/01/17 09:56 Dose: 0.125 mg Ferrous Sulfate (Feosol) 325 mg PO DAILY [facility] Last Admin: 07/01/17 09:55 Dose: 325 mg Fluconazole (Diflucan) 100 mg PO DAILY [facility] PRN Reason: Protocol Last Admin: 07/01/17 09:54 Dose: 100 mg Furosemide (Lasix) 40 mg IVP DAILY [facility] Last Admin: 07/01/17 09:57 Dose: 40 mg Gabapentin (Neurontin) 300 mg PO HS [facility] Last Admin: 10/29/17 21:01 Dose: 300 mg Clindamycin Phosphate 300 mg/ (Sodium Chloride) 52 mls @ 52 mls/hr IVPB Q8 [facility] PRN Reason: Protocol Last Admin: 07/01/17 17:27 Dose: 52 mls/hr Meropenem 500 mg/ Sodium (Chloride) 100 mls @ 100 mls/hr IVPB Q8 [facility] PRN Reason: Protocol Last Admin: 07/01/17 17:27 Dose: 100 mls/hr Insulin Human Regular (Humulin R) 0 units SC ACCU-CHECK [facility] PRN Reason: Protocol Last Admin: 07/01/17 22:11 Dose: Not Given Lactobacillus Acidophilus (Bacid Acidophilus) 1 cap PO BID [facility] Last Admin: 07/01/17 17:27 Dose: 1 cap Magnesium Hydroxide (Milk Of Magnesia) 30 ml PO DAILY PRN PRN Reason: Constipation Methylprednisolone (Solu-Medrol) 30 mg IVP Q12 [facility] Last Admin: 07/01/17 21:02 Dose: 30 mg Metolazone (Zaroxolyn) 2.5 mg PO DAILY [facility] Last Admin: 07/01/17 10:00 Dose: 2.5 mg Nitroglycerin (Nitrostat Sl Tab) 0.4 mg SL Q5M PRN PRN Reason: Other Last Admin: 06/21/17 06:36 Dose: 0.4 mg Nystatin (Nystatin Oral Susp) 5 ml PO QID [facility] Last Admin: 07/01/17 21:01 Dose: 5 ml Pantoprazole Sodium (Protonix Ec Tab) 40 mg PO DAILY [facility] Last Admin: 07/01/17 09:59 Dose: 40 mg Potassium Chloride (K-Dur 20 Meq Er Tab) 40 meq PO DAILY [facility] Last Admin: 07/01/17 09:56 Dose: 40 meq Rivaroxaban (Xarelto) 15 mg PO DAILY [facility] PRN Reason: Protocol Last Admin: 07/01/17 10:00 Dose: 15 mg Sitagliptin Phosphate (Januvia) 50 mg PO DAILY [facility] Last Admin: 07/01/17 09:56 Dose: 50 mg Tobramycin Sulfate (Tobrex 0.3% Ophth Soln) 1 drop OU TID [facility] Last Admin: 07/01/17 17:21 Dose: Not Given Valsartan (Diovan) 160 mg PO DAILY [facility] Last Admin: 07/01/17 09:55 Dose: 160 mg - Labs Labs: 06/30/17 06:30 06/30/17 07:30 - ENT Exam ENT Exam: Mucous Membranes Moist - Respiratory Exam Respiratory Exam: Rales, Rhonchi - Cardiovascular Exam Cardiovascular Exam: REGULAR RHYTHM - GI/Abdominal Exam GI & Abdominal Exam: Normal Bowel Sounds - Neurological Exam Neurological Exam: Awake, Oriented x3 Neuro motor strength exam: Left Upper Extremity: 5 - Psychiatric Exam Psychiatric exam: Anxious Assessment and Plan (1) Pneumonia Status: Acute (2) Pulmonary hypertension Status: Chronic (3) Acute on chronic heart failure Status: Acute (4) Benign essential HTN Status: Acute (5) COPD exacerbation Status: Acute - Assessment and Plan (Free Text) Plan: Cont meds Coint tx check labs in am CXR checkprobnp ambulate
--- NOTE | 2017-07-01 23:20 | CP.PCM.PN ---
Subjective - Date & Time of Evaluation Date of Evaluation: 06/25/17 Time of Evaluation: 10:00 - Subjective Subjective: Patient continues to have a lot of SOB and cough Still with elevated WBC Has no chest pain afebrile Objective - Vital Signs/Intake and Output Vital Signs (last 24 hours): Temp Pulse Resp BP Pulse Ox 98.1 F 77 18 127/61 100 07/01/17 20:09 07/01/17 20:09 07/01/17 20:09 07/01/17 20:09 07/01/17 20:09 Intake and Output: 07/01/17 07/02/17 18:59 06:59 Intake Total 900 Output Total 1600 Balance -700 - Medications Medications: Current Medications Acetaminophen (Tylenol 325mg Tab) 650 mg PO Q6 PRN PRN Reason: Pain, Mild (1-3) Last Admin: 06/29/17 16:37 Dose: 650 mg Acetaminophen (Tylenol 325mg Tab) 650 mg PO Q4 PRN PRN Reason: Fever >100.4 F, headache Albuterol/Ipratropium (Duoneb 3 Mg/0.5 Mg (3 Ml) Ud) 3 ml INH RQ4 [facility] Last Admin: 07/01/17 19:13 Dose: 3 ml Albuterol/Ipratropium (Duoneb 3 Mg/0.5 Mg (3 Ml) Ud) 3 ml IH Q6H PRN PRN Reason: Shortness of Breath Benzonatate (Tessalon Perles) 100 mg PO TID PRN PRN Reason: Cough Bismuth Subsalicylate (Pepto-Bismol) 262 mg PO TID [facility] Last Admin: 07/01/17 17:59 Dose: Not Given Digoxin (Lanoxin) 0.125 mg PO DAILY [facility] Last Admin: 07/01/17 09:56 Dose: 0.125 mg Ferrous Sulfate (Feosol) 325 mg PO DAILY [facility] Last Admin: 07/01/17 09:55 Dose: 325 mg Fluconazole (Diflucan) 100 mg PO DAILY [facility] PRN Reason: Protocol Last Admin: 07/01/17 09:54 Dose: 100 mg Furosemide (Lasix) 40 mg IVP DAILY [facility] Last Admin: 07/01/17 09:57 Dose: 40 mg Gabapentin (Neurontin) 300 mg PO HS [facility] Last Admin: 07/01/17 21:01 Dose: 300 mg Clindamycin Phosphate 300 mg/ (Sodium Chloride) 52 mls @ 52 mls/hr IVPB Q8 [facility] PRN Reason: Protocol Last Admin: 07/01/17 17:27 Dose: 52 mls/hr Meropenem 500 mg/ Sodium (Chloride) 100 mls @ 100 mls/hr IVPB Q8 [facility] PRN Reason: Protocol Last Admin: 07/01/17 17:27 Dose: 100 mls/hr Insulin Human Regular (Humulin R) 0 units SC ACCU-CHECK [facility] PRN Reason: Protocol Last Admin: 07/01/17 22:11 Dose: Not Given Lactobacillus Acidophilus (Bacid Acidophilus) 1 cap PO BID [facility] Last Admin: 07/01/17 17:27 Dose: 1 cap Magnesium Hydroxide (Milk Of Magnesia) 30 ml PO DAILY PRN PRN Reason: Constipation Methylprednisolone (Solu-Medrol) 30 mg IVP Q12 [facility] Last Admin: 07/01/17 21:02 Dose: 30 mg Metolazone (Zaroxolyn) 2.5 mg PO DAILY [facility] Last Admin: 07/01/17 10:00 Dose: 2.5 mg Nitroglycerin (Nitrostat Sl Tab) 0.4 mg SL Q5M PRN PRN Reason: Other Last Admin: 06/21/17 06:36 Dose: 0.4 mg Nystatin (Nystatin Oral Susp) 5 ml PO QID [facility] Last Admin: 07/01/17 21:01 Dose: 5 ml Pantoprazole Sodium (Protonix Ec Tab) 40 mg PO DAILY [facility] Last Admin: 07/01/17 09:59 Dose: 40 mg Potassium Chloride (K-Dur 20 Meq Er Tab) 40 meq PO DAILY [facility] Last Admin: 07/01/17 09:56 Dose: 40 meq Rivaroxaban (Xarelto) 15 mg PO DAILY [facility] PRN Reason: Protocol Last Admin: 07/01/17 10:00 Dose: 15 mg Sitagliptin Phosphate (Januvia) 50 mg PO DAILY [facility] Last Admin: 07/01/17 09:56 Dose: 50 mg Tobramycin Sulfate (Tobrex 0.3% Oph Soln) 1 drop OU TID [facility] Last Admin: 07/01/17 17:21 Dose: Not Given Valsartan (Diovan) 160 mg PO DAILY [facility] Last Admin: 07/01/17 09:55 Dose: 160 mg - Labs Labs: 06/30/17 06:30 06/30/17 07:30 - Head Exam Head Exam: NORMAL INSPECTION - ENT Exam ENT Exam: Mucous Membranes Moist - Respiratory Exam Respiratory Exam: Rales - Cardiovascular Exam Cardiovascular Exam: REGULAR RHYTHM - GI/Abdominal Exam GI & Abdominal Exam: Normal Bowel Sounds - Neurological Exam Neurological Exam: Awake, Oriented x3 Assessment and Plan (1) Pneumonia Status: Acute (2) Pulmonary hypertension Status: Chronic (3) Acute on chronic heart failure Status: Acute (4) Benign essential HTN Status: Acute (5) COPD exacerbation Status: Acute - Assessment and Plan (Free Text) Plan: Cont meds Cont tx Cont iv antibiotics Cont PT
--- NOTE | 2017-07-01 23:25 | CP.PCM.PN ---
Subjective - Date & Time of Evaluation Date of Evaluation: 06/28/17 Time of Evaluation: 10:00 - Subjective Subjective: Still with elevated WBC Has no fever Has less cough. Still with SOB But noted to have improved appetite. Objective - Vital Signs/Intake and Output Vital Signs (last 24 hours): Temp Pulse Resp BP Pulse Ox 98.1 F 77 18 127/61 100 07/01/17 20:09 07/01/17 20:09 07/01/17 20:09 07/01/17 20:09 07/01/17 20:09 Intake and Output: 07/01/17 07/02/17 18:59 06:59 Intake Total 900 Output Total 1600 Balance -700 - Medications Medications: Current Medications Acetaminophen (Tylenol 325mg Tab) 650 mg PO Q6 PRN PRN Reason: Pain, Mild (1-3) Last Admin: 06/29/17 16:37 Dose: 650 mg Acetaminophen (Tylenol 325mg Tab) 650 mg PO Q4 PRN PRN Reason: Fever >100.4 F, headache Albuterol/Ipratropium (Duoneb 3 Mg/0.5 Mg (3 Ml) Ud) 3 ml INH RQ4 [facility] Last Admin: 07/01/17 19:13 Dose: 3 ml Albuterol/Ipratropium (Duoneb 3 Mg/0.5 Mg (3 Ml) Ud) 3 ml IH Q6H PRN PRN Reason: Shortness of Breath Benzonatate (Tessalon Perles) 100 mg PO TID PRN PRN Reason: Cough Bismuth Subsalicylate (Pepto-Bismol) 262 mg PO TID [facility] Last Admin: 07/01/17 17:59 Dose: Not Given Digoxin (Lanoxin) 0.125 mg PO DAILY [facility] Last Admin: 07/01/17 09:56 Dose: 0.125 mg Ferrous Sulfate (Feosol) 325 mg PO DAILY [facility] Last Admin: 07/01/17 09:55 Dose: 325 mg Fluconazole (Diflucan) 100 mg PO DAILY [facility] PRN Reason: Protocol Last Admin: 07/01/17 09:54 Dose: 100 mg Furosemide (Lasix) 40 mg IVP DAILY [facility] Last Admin: 07/01/17 09:57 Dose: 40 mg Gabapentin (Neurontin) 300 mg PO HS [facility] Last Admin: 07/01/17 21:01 Dose: 300 mg Clindamycin Phosphate 300 mg/ (Sodium Chloride) 52 mls @ 52 mls/hr IVPB Q8 [facility] PRN Reason: Protocol Last Admin: 07/01/17 17:27 Dose: 52 mls/hr Meropenem 500 mg/ Sodium (Chloride) 100 mls @ 100 mls/hr IVPB Q8 [facility] PRN Reason: Protocol Last Admin: 07/01/17 17:27 Dose: 100 mls/hr Insulin Human Regular (Humulin R) 0 units SC ACCU-CHECK [facility] PRN Reason: Protocol Last Admin: 07/01/17 22:11 Dose: Not Given Lactobacillus Acidophilus (Bacid Acidophilus) 1 cap PO BID [facility] Last Admin: 07/01/17 17:27 Dose: 1 cap Magnesium Hydroxide (Milk Of Magnesia) 30 ml PO DAILY PRN PRN Reason: Constipation Methylprednisolone (Solu-Medrol) 30 mg IVP Q12 [facility] Last Admin: 07/01/17 21:02 Dose: 30 mg Metolazone (Zaroxolyn) 2.5 mg PO DAILY [facility] Last Admin: 07/01/17 10:00 Dose: 2.5 mg Nitroglycerin (Nitrostat Sl Tab) 0.4 mg SL Q5M PRN PRN Reason: Other Last Admin: 06/21/17 06:36 Dose: 0.4 mg Nystatin (Nystatin Oral Susp) 5 ml PO QID [facility] Last Admin: 07/01/17 21:01 Dose: 5 ml Pantoprazole Sodium (Protonix Ec Tab) 40 mg PO DAILY [facility] Last Admin: 07/01/17 09:59 Dose: 40 mg Potassium Chloride (K-Dur 20 Meq Er Tab) 40 meq PO DAILY [facility] Last Admin: 07/01/17 09:56 Dose: 40 meq Rivaroxaban (Xarelto) 15 mg PO DAILY [facility] PRN Reason: Protocol Last Admin: 07/01/17 10:00 Dose: 15 mg Sitagliptin Phosphate (Januvia) 50 mg PO DAILY [facility] Last Admin: 07/01/17 09:56 Dose: 50 mg Tobramycin Sulfate (Tobrex 0.3% Ophth Soln) 1 drop OU TID [facility] Last Admin: 07/01/17 17:21 Dose: Not Given Valsartan (Diovan) 160 mg PO DAILY [facility] Last Admin: 07/01/17 09:55 Dose: 160 mg - Labs Labs: 06/30/17 06:30 06/30/17 07:30 - Head Exam Head Exam: NORMAL INSPECTION - Eye Exam Eye Exam: Normal appearance - Respiratory Exam Respiratory Exam: Rales - Cardiovascular Exam Cardiovascular Exam: Irregular Rhythm - GI/Abdominal Exam GI & Abdominal Exam: Normal Bowel Sounds - Psychiatric Exam Psychiatric exam: Normal Mood Assessment and Plan (1) Pneumonia Status: Acute (2) Pulmonary hypertension Status: Chronic (3) Acute on chronic heart failure Status: Acute (4) Benign essential HTN Status: Acute (5) COPD exacerbation Status: Acute - Assessment and Plan (Free Text) Plan: Cont meds Cont IV antibiotics cont PT follow u with cardiology
[2017-07-02] MEDS: Meropenem 500 MG in Sodium Chloride 0.9% 100 ML IVPB SCH ×3 (00:05→17:19)
[2017-07-02] MEDS: Albuterol-Ipratrop 3 mg / 0.5 (3 ml) UD INH SCH ×6 (00:05→19:23)
[2017-07-02] MEDS: Clindamycin 300 MG in Sodium Chloride 0.9% 50 ML IVPB SCH ×3 (01:12→17:15)
[2017-07-02] MEDS: Insulin Regular 100 units/ml SC SCH ×4 (06:53→22:26)
[2017-07-02 08:35] LABS: HEMATOCRIT 29.7 % (34.0-47.0); MEAN CELL VOLUME 98.5 fl (81.0-99.0); MEAN CORPUSCULAR HEMOGLOBIN 30.7 pg (27.0-31.0); MEAN CORPUSCULAR HGB CONC 31.2 g/dL (33.0-37.0); RED CELL DISTRIBUTION WIDTH 21.7 % (11.5-14.5); WHITE BLOOD COUNT 15.4 K/uL (4.8-10.8)
[2017-07-02 08:43] LABS: BLOOD UREA NITROGEN 51 mg/dl (7-17); CARBON DIOXIDE 36 mmol/L (22-30); CHLORIDE 97 mmol/L (98-107); GFR AFRICAN-AMERICAN > 60; GLUCOSE,RANDOM 152 mg/dL (65-105); POTASSIUM 4.9 MMOL/L (3.6-5.0); SODIUM 140 mmol/l (132-148)
--- NOTE | 2017-07-02 10:34 | CP.PCM.PN ---
Subjective - Date & Time of Evaluation Date of Evaluation: 07/02/17 Time of Evaluation: 10:34 - Subjective Subjective: Patient remains stable but very weak Still with cough and SOB. Objective - Vital Signs/Intake and Output Vital Signs (last 24 hours): Temp Pulse Resp BP Pulse Ox 98.2 F 68 18 134/75 99 07/02/17 08:00 07/02/17 08:00 07/02/17 08:00 07/02/17 08:00 07/02/17 08:00 Intake and Output: 07/02/17 07/02/17 06:59 18:59 Intake Total 450 Balance 450 - Medications Medications: Current Medications Acetaminophen (Tylenol 325mg Tab) 650 mg PO Q6 PRN PRN Reason: Pain, Mild (1-3) Last Admin: 06/29/17 16:37 Dose: 650 mg Acetaminophen (Tylenol 325mg Tab) 650 mg PO Q4 PRN PRN Reason: Fever >100.4 F, headache Albuterol/Ipratropium (Duoneb 3 Mg/0.5 Mg (3 Ml) Ud) 3 ml INH RQ4 [facility] Last Admin: 07/02/17 07:33 Dose: 3 ml Albuterol/Ipratropium (Duoneb 3 Mg/0.5 Mg (3 Ml) Ud) 3 ml IH Q6H PRN PRN Reason: Shortness of Breath Benzonatate (Tessalon Perles) 100 mg PO TID PRN PRN Reason: Cough Bismuth Subsalicylate (Pepto-Bismol) 262 mg PO TID [facility] Last Admin: 07/01/17 17:59 Dose: Not Given Digoxin (Lanoxin) 0.125 mg PO DAILY [facility] Last Admin: 07/01/17 09:56 Dose: 0.125 mg Ferrous Sulfate (Feosol) 325 mg PO DAILY [facility] Last Admin: 07/01/17 09:55 Dose: 325 mg Fluconazole (Diflucan) 100 mg PO DAILY [facility] PRN Reason: Protocol Last Admin: 07/01/17 09:54 Dose: 100 mg Furosemide (Lasix) 40 mg IVP DAILY [facility] Last Admin: 07/01/17 09:57 Dose: 40 mg Gabapentin (Neurontin) 300 mg PO HS [facility] Last Admin: 07/01/17 21:01 Dose: 300 mg Clindamycin Phosphate 300 mg/ (Sodium Chloride) 52 mls @ 52 mls/hr IVPB Q8 [facility] PRN Reason: Protocol Last Admin: 07/02/17 01:12 Dose: 52 mls/hr Meropenem 500 mg/ Sodium (Chloride) 100 mls @ 100 mls/hr IVPB Q8 [facility] PRN Reason: Protocol Last Admin: 07/02/17 00:05 Dose: 100 mls/hr Insulin Human Regular (Humulin R) 0 units SC ACCU-CHECK [facility] PRN Reason: Protocol Last Admin: 07/02/17 06:53 Dose: 2 units Lactobacillus Acidophilus (Bacid Acidophilus) 1 cap PO BID [facility] Last Admin: 07/01/17 17:27 Dose: 1 cap Magnesium Hydroxide (Milk Of Magnesia) 30 ml PO DAILY PRN PRN Reason: Constipation Methylprednisolone (Solu-Medrol) 30 mg IVP Q12 [facility] Last Admin: 07/01/17 21:02 Dose: 30 mg Metolazone (Zaroxolyn) 2.5 mg PO DAILY [facility] Last Admin: 07/01/17 10:00 Dose: 2.5 mg Nitroglycerin (Nitrostat Sl Tab) 0.4 mg SL Q5M PRN PRN Reason: Other Last Admin: 06/21/17 06:36 Dose: 0.4 mg Nystatin (Nystatin Oral Susp) 5 ml PO QID [facility] Last Admin: 07/01/17 21:01 Dose: 5 ml Pantoprazole Sodium (Protonix Ec Tab) 40 mg PO DAILY [facility] Last Admin: 07/01/17 09:59 Dose: 40 mg Potassium Chloride (K-Dur 20 Meq Er Tab) 40 meq PO DAILY [facility] Last Admin: 07/01/17 09:56 Dose: 40 meq Rivaroxaban (Xarelto) 15 mg PO DAILY [facility] PRN Reason: Protocol Last Admin: 07/01/17 10:00 Dose: 15 mg Sitagliptin Phosphate (Januvia) 50 mg PO DAILY [facility] Last Admin: 07/01/17 09:56 Dose: 50 mg Tobramycin Sulfate (Tobrex 0.3% Oph Soln) 1 drop OU TID [facility] Last Admin: 07/01/17 17:21 Dose: Not Given Valsartan (Diovan) 160 mg PO DAILY [facility] Last Admin: 07/01/17 09:55 Dose: 160 mg - Labs Labs: 07/02/17 07:51 10/30/17 07:51 Assessment and Plan (1) Pneumonia Status: Acute (2) Pulmonary hypertension Status: Chronic (3) Acute on chronic heart failure Status: Acute (4) Benign essential HTN Status: Acute (5) COPD exacerbation Status: Acute
[2017-07-02] MEDS: Lactobacillus Acidophilus 500 MU Cap PO SCH ×2 (10:49→17:15)
[2017-07-02] MEDS: Potassium Chloride 20 mEq ER Tab PO SCH (10:55)
[2017-07-02] MEDS: Digoxin 125 mcg (0.125 mg) Tab PO SCH (10:55)
[2017-07-02] MEDS: Nystatin 100,000 Units/ml Oral Susp 5 ml UD PO SCH ×4 (10:56→21:30)
[2017-07-02] MEDS: Bismuth Subsalicylate 262 mg/15 ml Sus (240 ml) PO SCH ×2 (10:57→17:20)
[2017-07-02] MEDS: Pantoprazole 40 mg EC Tab PO SCH (10:57)
[2017-07-02] MEDS: MethylPREDNISolone 40 mg Vial IVP SCH ×2 (10:58→21:31)
[2017-07-02] MEDS: Tobramycin 0.3% OPHT SOLN OU SCH ×3 (10:59→17:20)
[2017-07-02] MEDS: metOLazone 2.5 MG TAB PO SCH (10:59)
[2017-07-02 11:37] LABS: IRON 80 ug/dL (37-170)
--- NOTE | 2017-07-02 17:00 | CP.PCM.PN ---
Subjective - Date & Time of Evaluation Date of Evaluation: 07/02/17 Time of Evaluation: 12:25 - Subjective Subjective: F/U HCAP Pt c/o of Soar Throat, not able to eat solid food brought by family, family stated is happening for several days. Objective - Vital Signs/Intake and Output Vital Signs (last 24 hours): Temp Pulse Resp BP Pulse Ox 98.6 F 81 18 122/56 L 98 07/02/17 16:46 07/02/17 16:46 07/02/17 16:46 07/02/17 16:46 07/02/17 16:46 Intake and Output: 07/02/17 07/02/17 06:59 18:59 Intake Total 450 Balance 450 - Medications Medications: Current Medications Acetaminophen (Tylenol 325mg Tab) 650 mg PO Q6 PRN PRN Reason: Pain, Mild (1-3) Last Admin: 06/29/17 16:37 Dose: 650 mg Acetaminophen (Tylenol 325mg Tab) 650 mg PO Q4 PRN PRN Reason: Fever >100.4 F, headache Albuterol/Ipratropium (Duoneb 3 Mg/0.5 Mg (3 Ml) Ud) 3 ml INH RQ4 [facility] Last Admin: 07/02/17 15:42 Dose: 3 ml Albuterol/Ipratropium (Duoneb 3 Mg/0.5 Mg (3 Ml) Ud) 3 ml IH Q6H PRN PRN Reason: Shortness of Breath Benzonatate (Tessalon Perles) 100 mg PO TID PRN PRN Reason: Cough Bismuth Subsalicylate (Pepto-Bismol) 262 mg PO TID [facility] Last Admin: 07/02/17 10:57 Dose: 262 mg Digoxin (Lanoxin) 0.125 mg PO DAILY [facility] Last Admin: 07/02/17 10:55 Dose: 0.125 mg Ferrous Sulfate (Feosol) 325 mg PO DAILY [facility] Last Admin: 07/02/17 10:54 Dose: 325 mg Fluconazole (Diflucan) 100 mg PO DAILY [facility] PRN Reason: Protocol Last Admin: 07/02/17 10:53 Dose: 100 mg Furosemide (Lasix) 40 mg IVP DAILY [facility] Last Admin: 07/02/17 10:56 Dose: 40 mg Gabapentin (Neurontin) 300 mg PO HS [facility] Last Admin: 07/01/17 21:01 Dose: 300 mg Clindamycin Phosphate 300 mg/ (Sodium Chloride) 52 mls @ 52 mls/hr IVPB Q8 [facility] PRN Reason: Protocol Last Admin: 07/02/17 10:50 Dose: 52 mls/hr Meropenem 500 mg/ Sodium (Chloride) 100 mls @ 100 mls/hr IVPB Q8 [facility] PRN Reason: Protocol Last Admin: 07/02/17 10:50 Dose: 100 mls/hr Insulin Human Regular (Humulin R) 0 units SC ACCU-CHECK [facility] PRN Reason: Protocol Last Admin: 07/02/17 06:53 Dose: 2 units Lactobacillus Acidophilus (Bacid Acidophilus) 1 cap PO BID [facility] Last Admin: 07/02/17 10:49 Dose: 1 cap Magnesium Hydroxide (Milk Of Magnesia) 30 ml PO DAILY PRN PRN Reason: Constipation Methylprednisolone (Solu-Medrol) 30 mg IVP Q12 [facility] Last Admin: 07/02/17 10:58 Dose: 30 mg Metolazone (Zaroxolyn) 2.5 mg PO DAILY [facility] Last Admin: 07/02/17 10:59 Dose: 2.5 mg Nitroglycerin (Nitrostat Sl Tab) 0.4 mg SL Q5M PRN PRN Reason: Other Last Admin: 06/21/17 06:36 Dose: 0.4 mg Nystatin (Nystatin Oral Susp) 5 ml PO QID [facility] Last Admin: 07/02/17 10:56 Dose: 5 ml Pantoprazole Sodium (Protonix Ec Tab) 40 mg PO DAILY [facility] Last Admin: 07/02/17 10:57 Dose: 40 mg Potassium Chloride (K-Dur 20 Meq Er Tab) 40 meq PO DAILY [facility] Last Admin: 07/02/17 10:55 Dose: 40 meq Rivaroxaban (Xarelto) 15 mg PO DAILY [facility] PRN Reason: Protocol Last Admin: 07/02/17 10:59 Dose: 15 mg Sitagliptin Phosphate (Januvia) 50 mg PO DAILY [facility] Last Admin: 07/02/17 10:54 Dose: 50 mg Tobramycin Sulfate (Tobrex 0.3% Ophth Soln) 1 drop OU TID [facility] Last Admin: 07/02/17 10:59 Dose: Not Given Valsartan (Diovan) 160 mg PO DAILY [facility] Last Admin: 07/02/17 10:54 Dose: 160 mg - Labs Labs: 07/02/17 07:51 07/02/17 07:51 - Constitutional Appears: No Acute Distress, Chronically Ill - Head Exam Head Exam: NORMAL INSPECTION - Eye Exam Eye Exam: PERRL - ENT Exam ENT Exam: Normal Exam - Neck Exam Neck Exam: Normal Inspection - Respiratory Exam Respiratory Exam: Decreased Breath Sounds (at bases), Rhonchi (b/l) - Cardiovascular Exam Cardiovascular Exam: REGULAR RHYTHM, Murmur (systolic 3/6 LSB [place] radiated to Axilla.) - GI/Abdominal Exam GI & Abdominal Exam: Soft, Normal Bowel Sounds - Extremities Exam Extremities Exam: Normal Inspection - Back Exam Back Exam: NORMAL INSPECTION - Neurological Exam Neurological Exam: Awake, CN II-XII Intact Additional comments: Generalized weakness, no focal motor/sensory deficit. - Psychiatric Exam Psychiatric exam: Anxious - Skin Skin Exam: Warm Assessment and Plan (1) HCAP (healthcare-associated pneumonia) Status: Acute (2) COPD (chronic obstructive pulmonary disease) Status: Chronic (3) Pulmonary hypertension Status: Chronic (4) Hypercapnic respiratory failure Status: Acute (5) Sore throat Status: Acute (6) Dysphagia Status: Acute - Assessment and Plan (Free Text) Plan: Place Pt on full liquid diet until seen by ENT. Continue rest of Tx.
[2017-07-02 18:34] LABS: FOLATE > 20.0 ng/mL
[2017-07-03] MEDS: Albuterol-Ipratrop 3 mg / 0.5 (3 ml) UD INH SCH ×6 (00:35→19:21)
[2017-07-03] MEDS: Meropenem 500 MG in Sodium Chloride 0.9% 100 ML IVPB SCH ×3 (01:06→18:41)
[2017-07-03] MEDS: Clindamycin 300 MG in Sodium Chloride 0.9% 50 ML IVPB SCH ×3 (02:19→17:42)
[2017-07-03] MEDS: Insulin Regular 100 units/ml SC SCH ×4 (06:47→22:08)
[2017-07-03] MEDS: Digoxin 125 mcg (0.125 mg) Tab PO SCH (09:35)
[2017-07-03] MEDS: Potassium Chloride 20 mEq ER Tab PO SCH (09:35)
[2017-07-03] MEDS: Nystatin 100,000 Units/ml Oral Susp 5 ml UD PO SCH ×4 (09:38→21:56)
[2017-07-03] MEDS: Pantoprazole 40 mg EC Tab PO SCH (09:40)
[2017-07-03] MEDS: MethylPREDNISolone 40 mg Vial IVP SCH ×2 (09:40→21:57)
[2017-07-03] MEDS: Bismuth Subsalicylate 262 mg/15 ml Sus (240 ml) PO SCH ×3 (09:40→17:36)
[2017-07-03] MEDS: Tobramycin 0.3% OPHT SOLN OU SCH ×3 (09:43→17:37)
[2017-07-03] MEDS: metOLazone 2.5 MG TAB PO SCH (09:44)
[2017-07-03] MEDS: Lactobacillus Acidophilus 500 MU Cap PO SCH ×2 (09:48→17:32)
--- NOTE | 2017-07-03 11:09 | CP.PCM.PN ---
Subjective - Date & Time of Evaluation Date of Evaluation: 07/03/17 Time of Evaluation: 11:07 - Subjective Subjective: Patient seen and evaluated at bedside. Patient is doing well. Resting comfortably. Patient will be weaned of high flow today. Objective - Vital Signs/Intake and Output Vital Signs (last 24 hours): Temp Pulse Resp BP Pulse Ox 97.7 F 76 20 145/76 99 07/03/17 08:00 07/03/17 08:00 07/03/17 08:00 07/03/17 09:36 07/03/17 08:00 Intake and Output: 07/03/17 07/03/17 06:59 18:59 Output Total 400 Balance -400 - Medications Medications: Current Medications Acetaminophen (Tylenol 325mg Tab) 650 mg PO Q6 PRN PRN Reason: Pain, Mild (1-3) Last Admin: 06/29/17 16:37 Dose: 650 mg Acetaminophen (Tylenol 325mg Tab) 650 mg PO Q4 PRN PRN Reason: Fever >100.4 F, headache Albuterol/Ipratropium (Duoneb 3 Mg/0.5 Mg (3 Ml) Ud) 3 ml INH RQ4 [facility] Last Admin: 07/03/17 10:59 Dose: 3 ml Albuterol/Ipratropium (Duoneb 3 Mg/0.5 Mg (3 Ml) Ud) 3 ml IH Q6H PRN PRN Reason: Shortness of Breath Benzonatate (Tessalon Perles) 100 mg PO TID PRN PRN Reason: Cough Bismuth Subsalicylate (Pepto-Bismol) 262 mg PO TID [facility] Last Admin: 07/03/17 09:40 Dose: 262 mg Digoxin (Lanoxin) 0.125 mg PO DAILY [facility] Last Admin: 07/03/17 09:35 Dose: 0.125 mg Ferrous Sulfate (Feosol) 325 mg PO DAILY [facility] Last Admin: 07/03/17 09:34 Dose: 325 mg Fluconazole (Diflucan) 100 mg PO DAILY [facility] PRN Reason: Protocol Last Admin: 07/03/17 09:33 Dose: 100 mg Furosemide (Lasix) 20 mg PO DAILY [facility] Furosemide (Lasix) 40 mg PO DAILY [facility] Gabapentin (Neurontin) 300 mg PO HS [facility] Last Admin: 07/02/17 21:30 Dose: 300 mg Clindamycin Phosphate 300 mg/ (Sodium Chloride) 52 mls @ 52 mls/hr IVPB Q8 [facility] PRN Reason: Protocol Last Admin: 07/03/17 09:30 Dose: 52 mls/hr Meropenem 500 mg/ Sodium (Chloride) 100 mls @ 100 mls/hr IVPB Q8 [facility] PRN Reason: Protocol Last Admin: 07/03/17 01:06 Dose: 100 mls/hr Insulin Human Regular (Humulin R) 0 units SC ACCU-CHECK [facility] PRN Reason: Protocol Last Admin: 07/03/17 06:47 Dose: 6 units Lactobacillus Acidophilus (Bacid Acidophilus) 1 cap PO BID [facility] Last Admin: 07/03/17 09:48 Dose: 1 cap Magnesium Hydroxide (Milk Of Magnesia) 30 ml PO DAILY PRN PRN Reason: Constipation Methylprednisolone (Solu-Medrol) 30 mg IVP Q12 [facility] Last Admin: 07/03/17 09:40 Dose: 30 mg Metolazone (Zaroxolyn) 2.5 mg PO DAILY [facility] Last Admin: 07/03/17 09:44 Dose: 2.5 mg Nitroglycerin (Nitrostat Sl Tab) 0.4 mg SL Q5M PRN PRN Reason: Other Last Admin: 06/21/17 06:36 Dose: 0.4 mg Nystatin (Nystatin Oral Susp) 5 ml PO QID [facility] Last Admin: 07/03/17 09:38 Dose: 5 ml Pantoprazole Sodium (Protonix Ec Tab) 40 mg PO DAILY [facility] Last Admin: 07/03/17 09:40 Dose: 40 mg Potassium Chloride (K-Dur 20 Meq Er Tab) 40 meq PO DAILY [facility] Last Admin: 07/03/17 09:35 Dose: 40 meq Rivaroxaban (Xarelto) 15 mg PO DAILY [facility] PRN Reason: Protocol Last Admin: 07/03/17 09:43 Dose: 15 mg Sitagliptin Phosphate (Januvia) 50 mg PO DAILY [facility] Last Admin: 07/03/17 09:34 Dose: 50 mg Tobramycin Sulfate (Tobrex 0.3% Oph Soln) 1 drop OU TID [facility] Last Admin: 07/03/17 09:43 Dose: Not Given Valsartan (Diovan) 160 mg PO DAILY [facility] Last Admin: 07/03/17 09:34 Dose: 160 mg - Labs Labs: 10/30/17 07:51 07/02/17 07:51 - Constitutional Appears: No Acute Distress - Head Exam Head Exam: NORMAL INSPECTION - Eye Exam Eye Exam: Normal appearance - Respiratory Exam Respiratory Exam: Decreased Breath Sounds (at bases), Rhonchi - Extremities Exam Extremities Exam: Full ROM, Normal Inspection. absent: Calf Tenderness - Neurological Exam Neurological Exam: Alert, Awake, Oriented x3 Assessment and Plan - Assessment and Plan (Free Text) Assessment: 1) Pnuemonia : HCAP vs Aspiration - CT showed b/l upper lobe infiltrates - WBC 15.4 - Pulm consult appreciated - ID consult appreciated - Continue antibiotics as per ID 2) COPD exacerbation - duonebs 3mL Inh Q4h - Methylprednisolone 30 mg Q12 - wean off high flow today 3) Left sided acute on chronic diastolic dysfunction with preserved EF. - previous echo reviewed : EF : 65- 75 % - [place] [facility]: Dr. Jean consulted - last echo 05/15/2017 showed EF 60-65%, severe tricuspid regurgitation, severe pulmonary hypertension 4) Afib - home medication digoxin and Xarelto - has atrial sensed ventricular paced pacemaker 5) DVT prophylaxis -SCD - xaralto
--- NOTE | 2017-07-03 15:21 | CP.PCM.PN ---
Subjective - Date & Time of Evaluation Date of Evaluation: 07/03/17 Time of Evaluation: 11:40 - Subjective Subjective: F/U HCAP Pt with no A/D, on O2 2L/M. c/o of sore throat and dry cough with chest congestion and difficulty to bring up phlegms. Objective - Vital Signs/Intake and Output Vital Signs (last 24 hours): Temp Pulse Resp BP Pulse Ox 98 F 88 20 119/70 98 07/03/17 13:00 07/03/17 13:00 07/03/17 13:00 07/03/17 13:00 07/03/17 13:00 Intake and Output: 07/03/17 07/03/17 06:59 18:59 Output Total 400 Balance -400 - Medications Medications: Current Medications Acetaminophen (Tylenol 325mg Tab) 650 mg PO Q6 PRN PRN Reason: Pain, Mild (1-3) Last Admin: 06/29/17 16:37 Dose: 650 mg Acetaminophen (Tylenol 325mg Tab) 650 mg PO Q4 PRN PRN Reason: Fever >100.4 F, headache Albuterol/Ipratropium (Duoneb 3 Mg/0.5 Mg (3 Ml) Ud) 3 ml INH RQ4 [facility] Last Admin: 07/03/17 10:59 Dose: 3 ml Albuterol/Ipratropium (Duoneb 3 Mg/0.5 Mg (3 Ml) Ud) 3 ml IH Q6H PRN PRN Reason: Shortness of Breath Benzonatate (Tessalon Perles) 100 mg PO TID PRN PRN Reason: Cough Bismuth Subsalicylate (Pepto-Bismol) 262 mg PO TID [facility] Last Admin: 07/03/17 13:19 Dose: 262 mg Digoxin (Lanoxin) 0.125 mg PO DAILY [facility] Last Admin: 07/03/17 09:35 Dose: 0.125 mg Ferrous Sulfate (Feosol) 325 mg PO DAILY [facility] Last Admin: 07/03/17 09:34 Dose: 325 mg Fluconazole (Diflucan) 100 mg PO DAILY [facility] PRN Reason: Protocol Last Admin: 07/03/17 09:33 Dose: 100 mg Furosemide (Lasix) 20 mg PO DAILY [facility] Last Admin: 07/03/17 13:18 Dose: Not Given Furosemide (Lasix) 40 mg PO DAILY [facility] Gabapentin (Neurontin) 300 mg PO HS [facility] Last Admin: 07/02/17 21:30 Dose: 300 mg Clindamycin Phosphate 300 mg/ (Sodium Chloride) 52 mls @ 52 mls/hr IVPB Q8 [facility] PRN Reason: Protocol Last Admin: 07/03/17 09:30 Dose: 52 mls/hr Meropenem 500 mg/ Sodium (Chloride) 100 mls @ 100 mls/hr IVPB Q8 [facility] PRN Reason: Protocol Last Admin: 07/03/17 11:16 Dose: 100 mls/hr Insulin Human Regular (Humulin R) 0 units SC ACCU-CHECK [facility] PRN Reason: Protocol Last Admin: 07/03/17 13:16 Dose: 2 units Lactobacillus Acidophilus (Bacid Acidophilus) 1 cap PO BID [facility] Last Admin: 07/03/17 09:48 Dose: 1 cap Magnesium Hydroxide (Milk Of Magnesia) 30 ml PO DAILY PRN PRN Reason: Constipation Methylprednisolone (Solu-Medrol) 30 mg IVP Q12 [facility] Last Admin: 07/03/17 09:40 Dose: 30 mg Metolazone (Zaroxolyn) 2.5 mg PO DAILY [facility] Last Admin: 07/03/17 09:44 Dose: 2.5 mg Nitroglycerin (Nitrostat Sl Tab) 0.4 mg SL Q5M PRN PRN Reason: Other Last Admin: 06/21/17 06:36 Dose: 0.4 mg Nystatin (Nystatin Oral Susp) 5 ml PO QID [facility] Last Admin: 07/03/17 13:18 Dose: 5 ml Pantoprazole Sodium (Protonix Ec Tab) 40 mg PO DAILY [facility] Last Admin: 07/03/17 09:40 Dose: 40 mg Potassium Chloride (K-Dur 20 Meq Er Tab) 40 meq PO DAILY [facility] Last Admin: 07/03/17 09:35 Dose: 40 meq Rivaroxaban (Xarelto) 15 mg PO DAILY [facility] PRN Reason: Protocol Last Admin: 07/03/17 09:43 Dose: 15 mg Sitagliptin Phosphate (Januvia) 50 mg PO DAILY [facility] Last Admin: 07/03/17 09:34 Dose: 50 mg Tobramycin Sulfate (Tobrex 0.3% Oph Soln) 1 drop OU TID [facility] Last Admin: 07/03/17 13:17 Dose: Not Given Valsartan (Diovan) 160 mg PO DAILY [facility] Last Admin: 07/03/17 09:34 Dose: 160 mg - Labs Labs: 07/02/17 07:51 07/02/17 07:51 - Constitutional Appears: No Acute Distress, Chronically Ill - Head Exam Head Exam: NORMAL INSPECTION - Eye Exam Eye Exam: PERRL - ENT Exam ENT Exam: Normal Exam - Neck Exam Neck Exam: Normal Inspection - Respiratory Exam Respiratory Exam: Decreased Breath Sounds (at bases), Rhonchi (b/l scattered) - Cardiovascular Exam Cardiovascular Exam: REGULAR RHYTHM, Murmur (3/6 LSB [place] radiated to Axilla.) - GI/Abdominal Exam GI & Abdominal Exam: Soft, Normal Bowel Sounds - Extremities Exam Extremities Exam: Normal Inspection - Back Exam Back Exam: NORMAL INSPECTION - Neurological Exam Neurological Exam: Alert, CN II-XII Intact Additional comments: Generalized weakness, no focal motor/sensory deficit. - Psychiatric Exam Psychiatric exam: Anxious - Skin Skin Exam: Warm Assessment and Plan (1) HCAP (healthcare-associated pneumonia) Status: Acute (2) COPD (chronic obstructive pulmonary disease) Status: Chronic (3) Pulmonary hypertension Status: Chronic (4) Hypercapnic respiratory failure Status: Acute - Assessment and Plan (Free Text) Plan: Continue Duoneb, Merrem, Clinda and rest of Tx.
[2017-07-04] MEDS: Meropenem 500 MG in Sodium Chloride 0.9% 100 ML IVPB SCH ×3 (00:19→17:01)
[2017-07-04] MEDS: Albuterol-Ipratrop 3 mg / 0.5 (3 ml) UD INH SCH ×7 (00:39→23:23)
[2017-07-04] MEDS: Clindamycin 300 MG in Sodium Chloride 0.9% 50 ML IVPB SCH ×3 (01:14→17:02)
[2017-07-04] MEDS: Insulin Regular 100 units/ml SC SCH ×4 (06:37→22:08)
[2017-07-04] MEDS: Pantoprazole 40 mg EC Tab PO SCH (09:07)
[2017-07-04] MEDS: metOLazone 2.5 MG TAB PO SCH (09:08)
[2017-07-04] MEDS: Bismuth Subsalicylate 262 mg/15 ml Sus (240 ml) PO SCH ×3 (09:08→17:03)
[2017-07-04] MEDS: Nystatin 100,000 Units/ml Oral Susp 5 ml UD PO SCH ×4 (09:08→21:02)
[2017-07-04] MEDS: Tobramycin 0.3% OPHT SOLN OU SCH ×3 (09:08→17:03)
[2017-07-04] MEDS: MethylPREDNISolone 40 mg Vial IVP SCH ×2 (09:08→21:02)
[2017-07-04] MEDS: Digoxin 125 mcg (0.125 mg) Tab PO SCH (09:09)
[2017-07-04] MEDS: Potassium Chloride 20 mEq ER Tab PO SCH (09:09)
[2017-07-04 09:10] VITALS: PULSE 63
[2017-07-04] MEDS: Lactobacillus Acidophilus 500 MU Cap PO SCH ×2 (09:21→17:02)
[2017-07-04 09:42] LABS: HEMATOCRIT 26.5 % (34.0-47.0); MEAN CELL VOLUME 95.3 fl (81.0-99.0); MEAN CORPUSCULAR HEMOGLOBIN 31.1 pg (27.0-31.0); MEAN CORPUSCULAR HGB CONC 32.7 g/dL (33.0-37.0); WHITE BLOOD COUNT 13.1 K/uL (4.8-10.8)
--- NOTE | 2017-07-04 11:33 | CP.PCM.PCO ---
Assessment/Plan - Assessment/Plan Assessment (Free Text): Mrs Noel is medically cleared for DC to [facility], needs to continue iv merrem for 4 more days . total of 10 days . Discussed with Dr Lawrence - Problems Patient Problems: Problem List (Active/Current) Problem Status Onset Code Dysphagia Acute R13.10 Elevated troponin Acute R74.8 Hypercapnic respiratory failure Acute J96.92 Pneumonia Acute J18.9 Sore throat Acute J02.9 COPD (chronic obstructive pulmonary disease) Chronic J44.9 Pulmonary hypertension Chronic I27.20
[2017-07-04] MEDS ORDERED: Sodium Chloride 3% for Inhalation 4 ML VIAL.NEB IH PRN (11:46)
--- NOTE | 2017-07-04 11:58 | CP.PCM.DIS ---
Provider - Provider Date of Admission: 06/21/17 00:03 Attending physician: Juan A Lawrence MD Consults: Cardiology : Dr. Jean ID: Dr. Tyson Pulmonary: Dr. Burrows Time Spent in preparation of Discharge (in minutes): 35 Diagnosis - Discharge Diagnosis (1) Pneumonia Status: Acute Comment: HCAP; continue with IV antibiotics upon discharge: Merrem/Clinda. (2) COPD (chronic obstructive pulmonary disease) Status: Chronic Priority: High (3) CHF (congestive heart failure) Status: Chronic Priority: High Hospital Course - Lab Results Lab Results: Micro Results 06/28/17 12:40 Urine,Catheterized Urine Culture - Final Yeast Species 06/20/17 23:10 Blood-Venous Blood Culture - Final NO GROWTH AFTER 5 DAYS 06/20/17 23:10 Blood-Venous Gram Stain - Final TEST NOT PERFORMED 06/20/17 23:25 Blood-Venous Blood Culture - Final NO GROWTH AFTER 5 DAYS 06/20/17 23:25 Blood-Venous Gram Stain - Final TEST NOT PERFORMED 06/21/17 00:46 Urine,Clean Catch Urine Culture - Final Yeast Species Most Recent Lab Values WBC 13.1 K/uL (4.8-10.8) H 07/04/17 08:50 RBC 2.78 Mil/uL (3.80-5.20) L 07/04/17 08:50 Hgb 8.6 g/dL (12.0-16.0) L 07/04/17 08:50 Hct 26.5 % (34.0-47.0) L 07/04/17 08:50 MCV 95.3 fl (81.0-99.0) D 07/04/17 08:50 MCH 31.1 pg (27.0-31.0) H 07/04/17 08:50 MCHC 32.7 g/dL (33.0-37.0) L 07/04/17 08:50 RDW 22.0 % (11.5-14.5) H 07/04/17 08:50 Plt Count 182 K/uL (130-400) 07/04/17 08:50 MPV 11.5 fl (7.2-11.7) 06/20/17 23:27 Neut % (Auto) 90.6 % (50.0-75.0) H 06/20/17 23:27 Lymph % (Auto) 5.1 % (20.0-40.0) L 06/20/17 23:27 Humphreys % (Auto) 3.9 % (0.0-10.0) 06/20/17 23:27 Eos % (Auto) 0.0 % (0.0-4.0) 06/20/17 23: Baso % (Auto) 0.4 % (0.0-2.0) 06/20/17 23: Neut # 18.7 K/uL (1.8-7.0) H 06/20/17 23:27 Lymph # 1.1 K/uL (1.0-4.3) 06/20/17 23: Humphreys # 0.8 K/uL (0.0-0.8) 06/20/17 23: Eos # 0.0 K/uL (0.0-0.7) 06/20/17 23: Baso # 0.1 K/uL (0.0-0.2) 06/20/17 23:27 Neutrophils % (Manual) 88 % (42-75) H 06/20/17 23: Band Neutrophils % 2 % (0-2) 06/20/17 23: Lymphocytes % (Manual) 6 % (20-50) L 06/20/17 23: Monocytes % (Manual) 4 % (0-10) 06/20/17 23:27 Platelet Estimate Normal (NORMAL) 06/20/17 23: Anisocytosis (manual) Slight 06/20/17 23: Ovalocytes Slight 06/20/17 23:27 Acanthocytes (Spur) Slight 06/20/17 23: pCO2 54 mm/Hg (35-45) H 06/27/17 07:28 pO2 81 mm/Hg (80-100) 06/27/17 07:28 HCO3 38.9 mmol/L (21-28) H 06/27/17 07:28 ABG pH 7.51 (7.35-7.45) H 06/27/17 07:28 ABG Total CO2 44.8 mmol/L (22-28) H 06/27/17 07:28 ABG O2 Saturation 99.3 % (95-98) H 06/27/17 07:28 ABG O2 Content 12.8 ML/dL (15-23) L 06/27/17 07:28 ABG Base Excess 17.9 mmol/L (-2.0-3.0) H 06/27/17: ABG Hemoglobin 9.5 g/dL (11.7-17.4) L 06/27/17: ABG Carboxyhemoglobin 2.9 % (0.5-1.5) H 06/27/17: POC ABG HHb (Measured) 0.7 % (0.0-5.0) 06/27/17: ABG Methemoglobin 1.5 % (0.0-3.0) 06/27/17: ABG O2 Capacity 12.9 mL/dL (16-24) L 06/27/17: Kermit Test Yes 06/27/17: VBG pH 7.51 (7.32-7.43) H 06/20/17 23:20 VBG pCO2 56 mmHg (40-60) 06/20/17 23:20 VBG HCO3 39.3 mmol/L 06/20/17 23:20 VBG Total CO2 46.4 mmol/L (22-28) H 06/20/17 23:20 VBG O2 Sat (Calc) 99.9 % (40-65) H 06/20/17 23:20 VBG Base Excess 18.5 mmol/L (0.0-2.0) H 06/20/17 23:20 VBG Potassium 4.4 mmol/L (3.6-5.2) 06/20/17 23:20 A-a O2 Difference 65.0 mm/Hg 06/27/17:28 Hgb O2 Saturation 94.9 % (95.0-98.0) L 06/27/17: Sodium 142.0 mmol/L (132-148) 06/20/17 23:20 Chloride 99.0 mmol/L (98-107) 06/20/17 23:20 Glucose 253 mg/dL (65-105) H 06/20/17 23:20 Lactate 2.7 mmol/L (0.7-2.1) H 06/20/17 23:20 FiO2 30.0 % 06/27/17 07:28 Blood Gas Comments 2l/m nc,rr 06/27/17 07:28 Crit Value Called To Cinthya altamirano 06/25/17 11:20 Crit Value Called By 23 06/25/17 11:20 Crit Value Read Back Y 06/25/17 11:20 Blood Gas Notified Time 1125 06/25/17 11:20 Sodium 140 mmol/l (132-148) 07/02/17 07:51 Potassium 4.9 MMOL/L (3.6-5.0) 07/02/17 07:51 Chloride 97 mmol/L (98-107) L 07/02/17 07:51 Carbon Dioxide 36 mmol/L (22-30) H 07/02/17 07:51 Anion Gap 12 (10-20) 07/02/17 07:51 BUN 51 mg/dl (7-17) H 07/02/17 07:51 Creatinine 0.7 mg/dL (0.7-1.2) 07/02/17 07:51 Est GFR ( Amer) > 60 07/02/17 07:51 Est GFR (Non-Af Amer) > 60 07/02/17 07:51 POC Glucose (mg/dL) 222 mg/dL (65-110) H 07/04/17 10:37 Random Glucose 152 mg/dL (65-105) H 07/02/17 07:51 Serum Osmolality 327 mosm/kg (272-300) H 06/20/17 23:27 Calcium 9.0 mg/dL (8.4-10.2) 07/02/17 07:51 Phosphorus 3.4 mg/dl (2.5-4.5) 06/20/17 23:27 Magnesium 2.3 MG/DL (1.6-2.3) 06/20/17 23:27 Iron 80 ug/dL (37-170) 07/02/17 10:45 TIBC 266 ug/dL (250-450) 07/02/17 10:45 % Saturation 30 % (20-55) 07/02/17 10:45 Ferritin 97.0 ng/Ml (11.1-264.0) 07/02/17 07:51 Total Bilirubin 0.5 mg/dl (0.2-1.3) 06/30/17 07:30 AST 42 U/L (14-36) H 06/30/17 07:30 ALT 35 U/L (9-52) 06/30/17 07:30 Alkaline Phosphatase 53 U/L (38-126) 06/30/17 07:30 Troponin I 0.3670 ng/mL (0.00-0.120) H* 06/21/17 14:45 NT-Pro-B Natriuret Pep 5050 pg/ml (0-900) H 07/02/17 07:51 Total Protein 5.3 G/DL (6.3-8.2) L 06/30/17 07:30 Albumin 3.0 g/dL (3.5-5.0) L 06/30/17 07:30 Globulin 2.2 gm/dL (2.2-3.9) 06/30/17 07:30 Albumin/Globulin Ratio 1.4 (1.0-2.1) 06/30/17 07:30 Vitamin B12 793 pg/mL (239-931) 07/02/17 07:51 Folate > 20.0 ng/mL 07/02/17 07:51 Venous Blood Potassium 4.4 mmol/L (3.6-5.2) 06/20/17 23:20 Urine Color Yellow (YELLOW) 06/21/17 00:46 Urine Clarity Cloudy (Clear) 06/21/17 00:46 Urine pH 6.0 (5.0-8.0) 06/21/17 00:46 Ur Specific [place] 1.016 (1.003-1.030) 06/21/17 00:46 Urine Protein 30 mg/dL (NEGATIVE) 06/21/17 00:46 Urine Glucose (UA) Neg mg/dL (Normal) 06/21/17 00:46 Urine Ketones Negative mg/dL (NEGATIVE) 06/21/17 00:46 Urine Blood Moderate (NEGATIVE) 06/21/17 00:46 Urine Nitrate Negative (NEGATIVE) 06/21/17 00:46 Urine Bilirubin Negative (NEGATIVE) 06/21/17 00:46 Urine Urobilinogen 0.2-1.0 mg/dL (0.2-1.0) 06/21/17 00:46 Ur Leukocyte Esterase Large Artie/uL (Negative) 06/21/17 00:46 Urine RBC (Auto) 16 /hpf (0-3) H 06/21/17 00:46 Urine Microscopic WBC 92 /hpf (0-5) H 06/21/17 00:46 Ur Squamous Epith Cells 3 /hpf (0-5) 06/21/17 00:46 Urine Bacteria Rare (<OCC) 06/21/17 00:46 Hyaline Casts 3-5 /hpf (0-2) H 06/21/17 00:46 Urine Yeast (Budding) Occ /hpf (NEGATIVE) H 06/21/17 00:46 Digoxin 1.2 ng/mL (0.8-2.0) 06/20/17 23:27 Blood Type AB POSITIVE 06/21/17 00:05 Antibody Screen Negative 06/21/17 00:05 BBK History Checked Patient has bt 06/21/17 00:05 - Hospital Course Hospital Course: Patient seen and examined with Dr. Lawrence. 82 year old female admitted for HCAP/multifocal pneumonia with COPD exacerbation , treated with IV antibiotics and nebulizer treatments, weaned off of high flow oxygen yesterday. She has improved clinically since admission, was being followed by Pulmonology, Dr. Burrows. For her HCAP she is being treated with Merrem and Clindamycin. Will need to continue treatment upon discharge to [facility]. She feels well today, no shortness of breath or chest pain. She is stable for discharge to [facility]. Discharge Exam - Head Exam Head Exam: NORMAL INSPECTION - Eye Exam Eye Exam: Normal appearance Pupil Exam: NORMAL ACCOMODATION - ENT Exam ENT Exam: Mucous Membranes Moist - Respiratory Exam Respiratory Exam: Rhonchi (mild, diffuse), NORMAL BREATHING PATTERN. absent: Decreased Breath Sounds, Rales, Wheezes, Respiratory Distress, Stridor - Cardiovascular Exam Cardiovascular Exam: REGULAR RHYTHM, +S1, +S2 - GI/Abdominal Exam GI & Abdominal Exam: Unremarkable - Extremities Exam Extremities exam: normal inspection - Neurological Exam Neurological exam: Alert, CN II-XII Intact, Oriented x3 - Psychiatric Exam Psychiatric exam: Normal Affect, Normal Mood - Skin Skin Exam: Dry, Intact, Warm Discharge Plan - Follow Up Plan Condition: FAIR Disposition: HOME/ ROUTINE Instructions: Community Acquired Pneumonia (DC) Referrals: Juan A Lawrence MD [Family Provider] - Gerhard Burrows MD [Staff Provider] - Jason Jean MD [Staff Provider] -
--- NOTE | 2017-07-04 12:08 | CP.PCM.PN ---
Subjective - Date & Time of Evaluation Date of Evaluation: 07/04/17 Time of Evaluation: 10:00 - Subjective Subjective: F/U HCAP Pt with no A/D, no SOB with O2, coughing on and off with yellowish phlegms, chest congestion improved. Objective - Vital Signs/Intake and Output Vital Signs (last 24 hours): Temp Pulse Resp BP Pulse Ox 97.5 F L 63 20 125/75 100 07/04/17 08:00 07/04/17 08:00 07/04/17 08:00 07/04/17 09:09 07/04/17 08:00 Intake and Output: 07/04/17 07/04/17 06:59 18:59 Output Total 1400 Balance -1400 - Medications Medications: Current Medications Acetaminophen (Tylenol 325mg Tab) 650 mg PO Q6 PRN PRN Reason: Pain, Mild (1-3) Last Admin: 06/29/17 16:37 Dose: 650 mg Acetaminophen (Tylenol 325mg Tab) 650 mg PO Q4 PRN PRN Reason: Fever >100.4 F, headache Albuterol/Ipratropium (Duoneb 3 Mg/0.5 Mg (3 Ml) Ud) 3 ml INH RQ4 [facility] Last Admin: 07/04/17 11:02 Dose: 3 ml Albuterol/Ipratropium (Duoneb 3 Mg/0.5 Mg (3 Ml) Ud) 3 ml IH Q6H PRN PRN Reason: Shortness of Breath Benzonatate (Tessalon Perles) 100 mg PO TID PRN PRN Reason: Cough Bismuth Subsalicylate (Pepto-Bismol) 262 mg PO TID [facility] Last Admin: 07/04/17 09:08 Dose: 262 mg Digoxin (Lanoxin) 0.125 mg PO DAILY [facility] Last Admin: 07/04/17 09:09 Dose: 0.125 mg Ferrous Sulfate (Feosol) 325 mg PO DAILY [facility] Last Admin: 07/04/17 09:09 Dose: 325 mg Fluconazole (Diflucan) 100 mg PO DAILY [facility] PRN Reason: Protocol Last Admin: 07/04/17 09:09 Dose: 100 mg Furosemide (Lasix) 40 mg PO DAILY [facility] Last Admin: 07/04/17 09:09 Dose: 40 mg Gabapentin (Neurontin) 300 mg PO [facility] Last Admin: 07/03/17 21:56 Dose: 300 mg Clindamycin Phosphate 300 mg/ (Sodium Chloride) 52 mls @ 52 mls/hr IVPB Q8 [facility] PRN Reason: Protocol Last Admin: 07/04/17 09:17 Dose: 52 mls/hr Meropenem 500 mg/ Sodium (Chloride) 100 mls @ 100 mls/hr IVPB Q8 [facility] PRN Reason: Protocol Last Admin: 07/04/17 09:11 Dose: 100 mls/hr Insulin Human Regular (Humulin R) 0 units SC ACCU-CHECK [facility] PRN Reason: Protocol Last Admin: 07/04/17 06:37 Dose: 2 units Lactobacillus Acidophilus (Bacid Acidophilus) 1 cap PO BID [facility] Last Admin: 07/04/17 09:21 Dose: 1 cap Magnesium Hydroxide (Milk Of Magnesia) 30 ml PO DAILY PRN PRN Reason: Constipation Methylprednisolone (Solu-Medrol) 30 mg IVP Q12 [facility] Last Admin: 07/04/17 09:08 Dose: 30 mg Metolazone (Zaroxolyn) 2.5 mg PO DAILY [facility] Last Admin: 07/04/17 09:08 Dose: 2.5 mg Nitroglycerin (Nitrostat Sl Tab) 0.4 mg SL Q5M PRN PRN Reason: Other Last Admin: 06/21/17 06:36 Dose: 0.4 mg Nystatin (Nystatin Oral Susp) 5 ml PO QID [facility] Last Admin: 07/04/17 09:08 Dose: 5 ml Pantoprazole Sodium (Protonix Ec Tab) 40 mg PO DAILY [facility] Last Admin: 07/04/17 09:07 Dose: 40 mg Potassium Chloride (K-Dur 20 Meq Er Tab) 40 meq PO DAILY [facility] Last Admin: 07/04/17 09:09 Dose: 40 meq Rivaroxaban (Xarelto) 15 mg PO DAILY [facility] PRN Reason: Protocol Last Admin: 07/04/17 09:08 Dose: 15 mg Sitagliptin Phosphate (Januvia) 50 mg PO DAILY [facility] Last Admin: 07/04/17 09:09 Dose: 50 mg Tobramycin Sulfate (Tobrex 0.3% Ophth Soln) 1 drop OU TID [facility] Last Admin: 07/04/17 09:08 Dose: Not Given Valsartan (Diovan) 160 mg PO DAILY [facility] Last Admin: 07/04/17 09:09 Dose: 160 mg - Labs Labs: 07/04/17 08:50 07/02/17 07:51 - Constitutional Appears: No Acute Distress - Head Exam Head Exam: NORMAL INSPECTION - Eye Exam Eye Exam: PERRL - ENT Exam ENT Exam: Normal Exam - Neck Exam Neck Exam: Normal Inspection - Respiratory Exam Respiratory Exam: Rhonchi (b/l) - Cardiovascular Exam Cardiovascular Exam: REGULAR RHYTHM, Murmur (systolic 3/6 [place] radiated to Axilla.) - GI/Abdominal Exam GI & Abdominal Exam: Soft, Normal Bowel Sounds - Extremities Exam Extremities Exam: Normal Inspection - Back Exam Back Exam: NORMAL INSPECTION - Neurological Exam Neurological Exam: Awake, CN II-XII Intact Additional comments: Generalized weakness, no focal motor/sensory deficit. - Psychiatric Exam Psychiatric exam: Anxious - Skin Skin Exam: Warm Assessment and Plan (1) HCAP (healthcare-associated pneumonia) Status: Acute (2) COPD (chronic obstructive pulmonary disease) Status: Chronic (3) Pulmonary hypertension Status: Chronic (4) Hypercapnic respiratory failure Status: Acute - Assessment and Plan (Free Text) Plan: Pulmonary clear to be discharged to [facility] to continue Merrem IV, Clinda IV, Duoneb and rest of Tx.
[2017-07-05] MEDS: Clindamycin 300 MG in Sodium Chloride 0.9% 50 ML IVPB SCH ×2 (00:49→09:46)
[2017-07-05] MEDS: Meropenem 500 MG in Sodium Chloride 0.9% 100 ML IVPB SCH ×2 (00:53→11:19)
[2017-07-05] MEDS: Albuterol-Ipratrop 3 mg / 0.5 (3 ml) UD INH SCH ×4 (04:53→15:50)
[2017-07-05] MEDS: Insulin Regular 100 units/ml SC SCH ×2 (06:58→12:26)
[2017-07-05] MEDS: Pantoprazole 40 mg EC Tab PO SCH (09:45)
[2017-07-05] MEDS: Nystatin 100,000 Units/ml Oral Susp 5 ml UD PO SCH ×2 (09:45→12:27)
[2017-07-05] MEDS: metOLazone 2.5 MG TAB PO SCH (09:45)
[2017-07-05] MEDS: Potassium Chloride 20 mEq ER Tab PO SCH (09:46)
[2017-07-05] MEDS: Digoxin 125 mcg (0.125 mg) Tab PO SCH (09:48)
[2017-07-05] MEDS: Tobramycin 0.3% OPHT SOLN OU SCH ×3 (09:48→12:27)
[2017-07-05] MEDS: MethylPREDNISolone 40 mg Vial IVP SCH (09:49)
[2017-07-05] MEDS: Lactobacillus Acidophilus 500 MU Cap PO SCH (09:56)
[2017-07-05] MEDS: Bismuth Subsalicylate 262 mg/15 ml Sus (240 ml) PO SCH (12:27)
--- NOTE | 2017-07-05 13:09 | CP.PCM.PN ---
Objective - Vital Signs/Intake and Output Vital Signs (last 24 hours): Temp Pulse Resp BP Pulse Ox 97.3 F L 72 20 97/68 L 97 07/05/17 12:12 07/05/17 12:12 07/05/17 12:12 07/05/17 12:12 07/05/17 12:12 Intake and Output: 07/05/17 07/05/17 06:59 18:59 Intake Total 390 Output Total 500 Balance -110 - Medications Medications: Current Medications Acetaminophen (Tylenol 325mg Tab) 650 mg PO Q6 PRN PRN Reason: Pain, Mild (1-3) Last Admin: 06/29/17 16:37 Dose: 650 mg Acetaminophen (Tylenol 325mg Tab) 650 mg PO Q4 PRN PRN Reason: Fever >100.4 F, headache Albuterol/Ipratropium (Duoneb 3 Mg/0.5 Mg (3 Ml) Ud) 3 ml INH RQ4 [facility] Last Admin: 07/05/17 11:03 Dose: 3 ml Albuterol/Ipratropium (Duoneb 3 Mg/0.5 Mg (3 Ml) Ud) 3 ml IH Q6H PRN PRN Reason: Shortness of Breath Benzonatate (Tessalon Perles) 100 mg PO TID PRN PRN Reason: Cough Bismuth Subsalicylate (Pepto-Bismol) 262 mg PO TID [facility] Last Admin: 07/05/17 12:27 Dose: 262 mg Digoxin (Lanoxin) 0.125 mg PO DAILY [facility] Last Admin: 07/05/17 09:48 Dose: 0.125 mg Ferrous Sulfate (Feosol) 325 mg PO DAILY [facility] Last Admin: 07/05/17 09:49 Dose: 325 mg Fluconazole (Diflucan) 100 mg PO DAILY [facility] PRN Reason: Protocol Last Admin: 07/05/17 09:46 Dose: 100 mg Furosemide (Lasix) 40 mg PO DAILY [facility] Last Admin: 07/05/17 09:47 Dose: 40 mg Gabapentin (Neurontin) 300 mg PO HS [facility] Last Admin: 07/04/17 21:02 Dose: 300 mg Clindamycin Phosphate 300 mg/ (Sodium Chloride) 52 mls @ 52 mls/hr IVPB Q8 [facility] PRN Reason: Protocol Last Admin: 07/05/17 09:46 Dose: 52 mls/hr Meropenem 500 mg/ Sodium (Chloride) 100 mls @ 100 mls/hr IVPB Q8 [facility] PRN Reason: Protocol Last Admin: 07/05/17 11:19 Dose: 100 mls/hr Insulin Human Regular (Humulin R) 0 units SC ACCU-CHECK [facility] PRN Reason: Protocol Last Admin: 07/05/17 12:26 Dose: 4 units Lactobacillus Acidophilus (Bacid Acidophilus) 1 cap PO BID [facility] Last Admin: 07/05/17 09:56 Dose: 1 cap Magnesium Hydroxide (Milk Of Magnesia) 30 ml PO DAILY PRN PRN Reason: Constipation Methylprednisolone (Solu-Medrol) 30 mg IVP Q12 [facility] Last Admin: 07/05/17 09:49 Dose: 30 mg Metolazone (Zaroxolyn) 2.5 mg PO DAILY [facility] Last Admin: 07/05/17 09:45 Dose: 2.5 mg Nitroglycerin (Nitrostat Sl Tab) 0.4 mg SL Q5M PRN PRN Reason: Other Last Admin: 06/21/17 06:36 Dose: 0.4 mg Nystatin (Nystatin Oral Susp) 5 ml PO QID [facility] Last Admin: 07/05/17 12:27 Dose: 5 ml Pantoprazole Sodium (Protonix Ec Tab) 40 mg PO DAILY [facility] Last Admin: 07/05/17 09:45 Dose: 40 mg Potassium Chloride (K-Dur 20 Meq Er Tab) 40 meq PO DAILY [facility] Last Admin: 07/05/17 09:46 Dose: 40 meq Rivaroxaban (Xarelto) 15 mg PO DAILY [facility] PRN Reason: Protocol Last Admin: 07/05/17 09:48 Dose: 15 mg Sitagliptin Phosphate (Januvia) 50 mg PO DAILY [facility] Last Admin: 07/05/17 09:49 Dose: 50 mg Tobramycin Sulfate (Tobrex 0.3% Ophth Soln) 1 drop OU TID [facility] Last Admin: 07/05/17 12:27 Dose: Not Given Valsartan (Diovan) 160 mg PO DAILY [facility] Last Admin: 07/05/17 09:47 Dose: 160 mg - Labs Labs: 07/04/17 08:50 07/02/17 07:51 Assessment and Plan (1) HCAP (healthcare-associated pneumonia) Status: Acute (2) COPD (chronic obstructive pulmonary disease) Status: Chronic (3) Pulmonary hypertension Status: Chronic (4) Hypercapnic respiratory failure Status: Acute
--- NOTE | 2017-07-05 13:26 | CP.PCM.PN ---
Subjective - Date & Time of Evaluation Date of Evaluation: 07/05/17 Time of Evaluation: 13:24 - Subjective Subjective: Patient seen and examined with attending. Patient is doing well, states she feels a little unmotivated to do things but does not feel sad. Unable to describe feelings further. No other complaints offered this morning. Awaiting placement in LT[facility]. Objective - Vital Signs/Intake and Output Vital Signs (last 24 hours): Temp Pulse Resp BP Pulse Ox 97.3 F L 72 20 97/68 L 97 07/05/17 12:12 07/05/17 12:12 07/05/17 12:12 07/05/17 12:12 07/05/17 12:12 Intake and Output: 07/05/17 07/05/17 06:59 18:59 Intake Total 390 Output Total 500 Balance -110 - Medications Medications: Current Medications Acetaminophen (Tylenol 325mg Tab) 650 mg PO Q6 PRN PRN Reason: Pain, Mild (1-3) Last Admin: 06/29/17 16:37 Dose: 650 mg Acetaminophen (Tylenol 325mg Tab) 650 mg PO Q4 PRN PRN Reason: Fever >100.4 F, headache Albuterol/Ipratropium (Duoneb 3 Mg/0.5 Mg (3 Ml) Ud) 3 ml INH RQ4 [facility] Last Admin: 07/05/17 11:03 Dose: 3 ml Albuterol/Ipratropium (Duoneb 3 Mg/0.5 Mg (3 Ml) Ud) 3 ml IH Q6H PRN PRN Reason: Shortness of Breath Benzonatate (Tessalon Perles) 100 mg PO TID PRN PRN Reason: Cough Bismuth Subsalicylate (Pepto-Bismol) 262 mg PO TID [facility] Last Admin: 07/05/17 12:27 Dose: 262 mg Digoxin (Lanoxin) 0.125 mg PO DAILY [facility] Last Admin: 07/05/17 09:48 Dose: 0.125 mg Ferrous Sulfate (Feosol) 325 mg PO DAILY [facility] Last Admin: 07/05/17 09:49 Dose: 325 mg Fluconazole (Diflucan) 100 mg PO DAILY [facility] PRN Reason: Protocol Last Admin: 07/05/17 09:46 Dose: 100 mg Furosemide (Lasix) 40 mg PO DAILY [facility] Last Admin: 07/05/17 09:47 Dose: 40 mg Gabapentin (Neurontin) 300 mg PO HS [facility] Last Admin: 07/04/17 21:02 Dose: 300 mg Clindamycin Phosphate 300 mg/ (Sodium Chloride) 52 mls @ 52 mls/hr IVPB Q8 [facility] PRN Reason: Protocol Last Admin: 07/05/17 09:46 Dose: 52 mls/hr Meropenem 500 mg/ Sodium (Chloride) 100 mls @ 100 mls/hr IVPB Q8 [facility] PRN Reason: Protocol Last Admin: 07/05/17 11:19 Dose: 100 mls/hr Insulin Human Regular (Humulin R) 0 units SC ACCU-CHECK [facility] PRN Reason: Protocol Last Admin: 07/05/17 12:26 Dose: 4 units Lactobacillus Acidophilus (Bacid Acidophilus) 1 cap PO BID [facility] Last Admin: 07/05/17 09:56 Dose: 1 cap Magnesium Hydroxide (Milk Of Magnesia) 30 ml PO DAILY PRN PRN Reason: Constipation Methylprednisolone (Solu-Medrol) 30 mg IVP Q12 [facility] Last Admin: 07/05/17 09:49 Dose: 30 mg Metolazone (Zaroxolyn) 2.5 mg PO DAILY [facility] Last Admin: 07/05/17 09:45 Dose: 2.5 mg Nitroglycerin (Nitrostat Sl Tab) 0.4 mg SL Q5M PRN PRN Reason: Other Last Admin: 06/21/17 06:36 Dose: 0.4 mg Nystatin (Nystatin Oral Susp) 5 ml PO QID [facility] Last Admin: 07/05/17 12:27 Dose: 5 ml Pantoprazole Sodium (Protonix Ec Tab) 40 mg PO DAILY [facility] Last Admin: 07/05/17 09:45 Dose: 40 mg Potassium Chloride (K-Dur 20 Meq Er Tab) 40 meq PO DAILY [facility] Last Admin: 07/05/17 09:46 Dose: 40 meq Rivaroxaban (Xarelto) 15 mg PO DAILY [facility] PRN Reason: Protocol Last Admin: 07/05/17 09:48 Dose: 15 mg Sitagliptin Phosphate (Januvia) 50 mg PO DAILY [facility] Last Admin: 07/05/17 09:49 Dose: 50 mg Tobramycin Sulfate (Tobrex 0.3% Oph Soln) 1 drop OU TID [facility] Last Admin: 07/05/17 12:27 Dose: Not Given Valsartan (Diovan) 160 mg PO DAILY [facility] Last Admin: 07/05/17 09:47 Dose: 160 mg - Labs Labs: 07/04/17 08:50 07/02/17 07:51 - Constitutional Appears: Non-toxic, No Acute Distress - Head Exam Head Exam: NORMAL INSPECTION - ENT Exam ENT Exam: Mucous Membranes Moist - Respiratory Exam Respiratory Exam: NORMAL BREATHING PATTERN Additional comments: good air entry b/l - Cardiovascular Exam Cardiovascular Exam: +S1, +S2 - GI/Abdominal Exam GI & Abdominal Exam: absent: Distended, Tenderness - Neurological Exam Neurological Exam: Awake, CN II-XII Intact - Psychiatric Exam Psychiatric exam: Flat Affect - Skin Skin Exam: Dry, Intact Assessment and Plan (1) Pneumonia Status: Acute (2) COPD (chronic obstructive pulmonary disease) Status: Chronic (3) CHF (congestive heart failure) Status: Chronic (4) DVT prophylaxis Status: Acute - Assessment and Plan (Free Text) Assessment: 82 year old admitted for pneumonia with COPD exacerbation. Patient has improved clinically, no longer on high flow o2, not using NC. She is resting comfortably in bed. Cardiology, Pumonology and Infectious Disease are following. Input appreciated. # Pnuemonia : HCAP vs Aspiration # COPD exacerbation # Left sided acute on chronic diastolic dysfunction with preserved EF: 60-65% # Afib # DVT prophylaxis -Continue Merrem as per ID -Continue duonebs 3mL Inh Q4h - Continue Methylprednisolone 30 mg Q12 - previous echo reviewed : EF : 65- 75 % - Continue home medication digoxin and Xarelto, atrial sensed ventricular paced pacemaker - SCDs -Awaiting placement for LTAC
[2017-07-05 18:32] VITALS: BP 116/64; PULSE 81; RESP 16; TEMP 98.5; O2SAT 100
== END 2017-07-05 15:50 | DRG 190 ==
LOC: H.ER 22:26 → H.ERHOLD 06-21 00:03 → H.TEL 06-21 02:38
PROVIDERS: ADMIT Family Medicine; ATTEND Family Medicine
PROC: 3E0F73Z Introduction of Anti-inflammatory into Respiratory Tract, Via Natural or Artificial Opening (ICD-10-PCS; principal; 2017-06-21)
PROC: 3E0F7GC Introduction of Other Therapeutic Substance into Respiratory Tract, Via Natural or Artificial Opening (ICD-10-PCS; 2017-06-21)
PROC: 5A09357 Assistance with Respiratory Ventilation, Less than 24 Consecutive Hours, Continuous Positive Airway Pressure (ICD-10-PCS; 2017-06-26)
DX: J44.0 Chronic obstructive pulmonary disease with (acute) lower respiratory infection (principal); J18.9 Pneumonia, unspecified organism; J96.02 Acute respiratory failure with hypercapnia; I50.33 Acute on chronic diastolic (congestive) heart failure; G20 Parkinson's disease; I48.2 Chronic atrial fibrillation; I11.0 Hypertensive heart disease with heart failure; I07.1 Rheumatic tricuspid insufficiency; J44.1 Chronic obstructive pulmonary disease with (acute) exacerbation; F03.90 Unspecified dementia, unspecified severity, without behavioral disturbance, psychotic disturbance, mood disturbance, and anxiety; I27.20 Pulmonary hypertension, unspecified; Y95 Nosocomial condition; E87.6 Hypokalemia; E11.9 Type 2 diabetes mellitus without complications; I25.10 Atherosclerotic heart disease of native coronary artery without angina pectoris; E78.5 Hyperlipidemia, unspecified; D64.9 Anemia, unspecified; R13.10 Dysphagia, unspecified; M19.90 Unspecified osteoarthritis, unspecified site; Z88.6 Allergy status to analgesic agent; Z95.0 Presence of cardiac pacemaker; Z95.1 Presence of aortocoronary bypass graft; Z79.01 Long term (current) use of anticoagulants; Z86.73 Personal history of transient ischemic attack (TIA), and cerebral infarction without residual deficits; Z87.01 Personal history of pneumonia (recurrent)

== ENCOUNTER 2017-09-16 07:24 | Inpatient (IN) | payer MEDICARE, OTHER ==
[2017-09-16 07:24] VITALS: BMI 20.2
[2017-09-16] MEDS ORDERED: Albuterol-Ipratrop 3 mg / 0.5 (3 ml) UD INH STA (08:17)
--- NOTE | 2017-09-16 09:03 | ED PDOC ---
HPI: SOB/CHF/COPD Time Seen by Provider: 09/16/17 07:39 Chief Complaint (Nursing): Shortness Of Breath Chief Complaint (Provider): Shortness Of Breath History Per: Family (Daughter) History/Exam Limitations: no limitations Onset/Duration Of Symptoms: Hrs (x1 hour) Current Symptoms Are (Timing): Still Present Additional Complaint(s): 82 y/o female with past medical history of COPD presents to the ED with daughter for sudden onset of shortness of breath x 1 hour. Denies fever, chills , nausea, vomiting, diarrhea or any further medical complaints. PMD: Juan A Lawrence MD Past Medical History Vital Signs: Last Vital Signs Temp 98.4 F 09/16/17 07:41 Pulse 60 09/16/17 07:41 Resp 18 09/16/17 07:41 BP 136/71 09/16/17 07:41 Pulse Ox 100 09/16/17 09:07 - Medical History PMH: Anemia, Arthritis, Asthma, Atrial Fibrillation, Bronchitis, CAD, Cardia Arrhythmia, CHF, COPD, CVA (recurrent), Dementia, Diabetes (type II), HTN, Hypercholesterolemia, Hyperlipidemia, Parkinson's Disease, Peripheral Edema, Pneumonia, TIA Denies: HIV, Hypothyroidism, Chronic Kidney Disease, Rheumatoid Arthritis - Surgical History Surgical History: Appendectomy, CABG, Carotid Endarterectomy, Cholecystectomy, Pacemaker - Family History Family History: States: Unknown Family Hx - Social History Current smoker - smoking cessation education provided: No Alcohol: None Drugs: Denies - Immunization History Hx Tetanus Toxoid Vaccination: No Hx Influenza Vaccination: No Hx Pneumococcal Vaccination: No - Home Medications Home Medications: Ambulatory Orders Medication Instructions Recorded Ferrous Sulfate [Feosol] 325 mg PO DAILY 09/12/16 Linagliptin [Tradjenta] 5 mg PO DAILY 09/12/16 Gabapentin [Neurontin] 300 mg PO HS 12/15/16 Rivaroxaban [Xarelto] 15 mg PO DAILY 12/15/16 Albuterol/Ipratropium [Duoneb 3 3 ml IH Q6H PRN 02/16/17 mg/0.5 mg (3 ml) UD] Digoxin [Lanoxin] 0.125 mg PO DAILY 02/16/17 Valsartan [Diovan] 160 mg PO DAILY 02/16/17 metOLazone [Zaroxolyn] 2.5 mg PO DAILY 02/16/17 Furosemide [Lasix] 40 mg PO DAILY #30 tablet 05/24/17 Tobramycin 0.3% [Tobrex 0.3% Ophth 1 drop OU TID 06/11/17 Soln] Acetaminophen [Tylenol 325mg tab] 650 mg PO Q4 PRN tab 06/18/17 Albuterol/Ipratropium [Duoneb 3 3 ml INH RQ4 neb 06/18/17 mg/0.5 mg (3 ml) UD] Pantoprazole [Protonix EC Tab] 40 mg PO DAILY ect 06/18/17 Mv,Min10/Folic Acid/D3/Ala/Lut 1 tab PO DAILY 06/21/17 [Strovite One Caplet] Nitroglycerin [Nitrostat SL Tab] 0.4 mg SL Q5MIN PRN MDD no more 06/21/17 then 3 doses Carvedilol [Coreg] 12.5 mg PO BID 09/16/17 Ergocalciferol (Vitamin D2) 1.25 gm PO QWK 09/16/17 [Vitamin D2] Fluticasone/Vilanterol [Breo 1 puff INH PRN PRN 09/16/17 Ellipta 100-25 Mcg INH] Memantine HCl [Namenda Xr] 1 tab PO BID 09/16/17 Rivaroxaban [Xarelto] 15 mg PO DAILY 09/16/17 Umeclidinium [place] [Incruse 1 puff INH PRN PRN 09/16/17 Ellipta] - Allergies Allergies/Adverse Reactions: Allergies Allergy/AdvReac Type Severity Reaction Status Date / Time oxycodone Allergy RASH Verified 06/20/17 22:31 Review of Systems ROS Statement: Except As Marked, All Systems Reviewed And Found Negative (As per HPI, otherwise negative) Constitutional: Negative for: Fever, Chills Respiratory: Positive for: Shortness of Breath Gastrointestinal: Negative for: Nausea, Vomiting, Diarrhea Physical Exam - Reviewed Nursing Documentation Reviewed: Yes Vital Signs Reviewed: Yes - Physical Exam Appears: Positive for: Well, Non-toxic, No Acute Distress Head Exam: Positive for: ATRAUMATIC, NORMAL INSPECTION, NORMOCEPHALIC Skin: Positive for: Normal Color, Warm, Dry Eye Exam: Positive for: Normal appearance, EOMI, PERRL ENT: Positive for: Normal ENT Inspection Neck: Positive for: Normal, Painless ROM, Supple Cardiovascular/Chest: Positive for: Regular Rate, Rhythm. Negative for: Murmur Respiratory: Positive for: Wheezing (Bilateral wheezing) Gastrointestinal/Abdominal: Positive for: Normal Exam, Soft. Negative for: Tenderness Back: Positive for: Normal Inspection Extremity: Positive for: Normal ROM (Patient's feet were noted to be cold). Negative for: Tenderness, Deformity Neurologic/Psych: Positive for: Alert, Oriented (x3) - Laboratory Results Result Diagrams: 09/16/17 08:53 - ECG ECG: Positive for: Viewed By Me O2 Sat by Pulse Oximetry: 100 (RA) Pulse Ox Interpretation: Normal - Radiology X-Ray: Viewed By Me X-Ray Interpretation: No Acute Disease - Progress Re-evaluation Time: 10:45 Condition: Re-examined, Improving,but remains with symptoms Medical Decision Making Medical Decision Making: Time: 08:17 Plan: VBG shock panel EKG Troponin I CBC w/ differential Chest x-ray Albuterol 3ml INH Methylprednisolone 125mg IVP Blood culture IV Insertion Influenza A B Scribe Attestation: Documented by Nitin Castañeda acting as a scribe for Maria Eugenia Ewing MD. Scribe Attestation: All medical record entries made by the Scribe were at my direction and personally dictated by me. I have reviewed the chart and agree that the record accurately reflects my personal performance of the history, physical exam, medical decision making, and the department course for this patient. I have also personally directed, reviewed, and agree with the discharge instructions and disposition. 10.45a - patient is better but continues to be tachypneic. wheezing continues. Case d/w PMD - agrees that patient will benefit from observation admission for monitoring and treatment. Disposition - Clinical Impression Clinical Impression: COPD (chronic obstructive pulmonary disease), COPD exacerbation - Patient ED Disposition Is Patient to be Admitted: Yes Doctor Will See Patient In The: Hospital - Disposition Disposition: Transfer of Care Disposition Time: 11:03 Condition: IMPROVED Forms: [facility] ([place]) - Pt Status Changed To: Hospital Disposition Of: Observation - POA Present On Arrival: None
[2017-09-16 09:04] LABS: VENOUS BLOOD GAS BASE EXCESS 4.3 mmol/L (0.0-2.0); VENOUS BLOOD GAS PCO2 59 mmHg (40-60); VENOUS BLOOD GAS PO2 23 mm/Hg (30-55); VENOUS BLOOD PH 7.34 (7.32-7.43)
[2017-09-16 09:15] LABS: BASO % 0.4 % (0.0-2.0); EOS % 0.5 % (0.0-4.0); HEMOGLOBIN 9.9 g/dL (12.0-16.0); LYMPH # 2.6 K/uL (1.0-4.3); LYMPH % 27.8 % (20.0-40.0); MEAN CELL VOLUME 94.5 fl (81.0-99.0); MEAN CORPUSCULAR HEMOGLOBIN 30.2 pg (27.0-31.0); MEAN PLATELET VOLUME 10.5 fl (7.2-11.7); MONO # 0.7 K/uL (0.0-0.8); MONO % 7.9 % (0.0-10.0); NEUT # 5.8 K/uL (1.8-7.0); NEUT % 63.4 % (50.0-75.0); NRBC % 0.1 % (0.0-0.0); RBC 3.29 Mil/uL (3.80-5.20); RED CELL DISTRIBUTION WIDTH 15.6 % (11.5-14.5); WHITE BLOOD COUNT 9.2 K/uL (4.8-10.8)
--- NOTE | 2017-09-16 09:22 | RAD ---
PROCEDURE: CHEST RADIOGRAPH, 1 VIEW HISTORY: COPD COMPARISON: Chest radiograph dated 06/30/2017. FINDINGS: LUNGS: Pulmonary vascular congestion. Bibasilar atelectasis. PLEURA: Small bilateral pleural effusions. No appreciable pneumothorax. CARDIOVASCULAR: Left subclavian access to lead pacemaker redemonstrated. Prior sternotomy with sternal wires, surgical clips and prosthetic cardiac valve redemonstrated. Atherosclerotic aortic calcifications. Cardiomediastinal silhouette stably enlarged. OSSEOUS STRUCTURES: Unchanged. VISUALIZED UPPER ABDOMEN: Normal. OTHER FINDINGS: None. IMPRESSION: Pulmonary vascular congestion with small bilateral pleural effusions.
[2017-09-16 11:22] LABS: ALB/GLOB RATIO 1.1 (1.0-2.1); ALBUMIN 3.7 g/dL (3.5-5.0); CALCIUM 9.7 mg/dL (8.4-10.2)
[2017-09-16] MEDS ORDERED: Albuterol-Ipratrop 3 mg / 0.5 (3 ml) UD IH PRN (13:54)
[2017-09-16] MEDS: Albuterol-Ipratrop 3 mg / 0.5 (3 ml) UD INH SCH ×3 (15:17→23:00)
--- NOTE | 2017-09-16 22:41 | CP.PCM.HP ---
History of Present Illness - History of Present Illness History of Present Illness: This is an 82 y/o female admitted for increasing cough and SOB for the past few days Has a hx of recurrent exacerbation of COPD and CHF. She has a recent exacerbation of COPD and had mild CHF but did well after treatment. She lives with daughter. Medical Hx COPD CVA dementia HTN Hyperlipidemia CHF CAD Present on Admission - Present on Admission Any Indicators Present on Admission: No History of DVT/PE: No History of Uncontrolled Diabetes: No Urinary Catheter: No Decubitus Ulcer Present: No Review of Systems - EENT Nose/Mouth/Throat: Mouth Lesions - Respiratory Respiratory: Cough, Dyspnea, Dyspnea on Exertion, Wheezing Past Patient History - Infectious Disease Hx of Infectious Diseases: None - Tetanus Immunizations Tetanus Immunization: Unknown - Past Medical History & Family History Past Medical History?: Yes - Past Social History Smoking Status: Never Smoked - CARDIAC Hx Cardiac Disorders: Yes Hx Atrial Fibrillation: Yes Hx Cardia Arrhythmia: Yes Hx Circulatory Problems: Yes Hx Congestive Heart Failure: Yes Hx Hypercholesterolemia: Yes Hx Hypertension: Yes Hx Pacemaker: Yes Hx Peripheral Edema: Yes Hx Peripheral Vascular Disease: Yes - PULMONARY Hx Asthma: Yes Hx Bronchitis: Yes Hx Chronic Obstructive Pulmonary Disease (COPD): Yes Hx Pneumonia: Yes - NEUROLOGICAL Hx Dementia: Yes Hx Parkinson's Disease: Yes Hx Transient Ischemic Attacks (TIA): Yes - HEENT Hx HEENT Problems: No - RENAL Hx Chronic Kidney Disease: No - ENDOCRINE/METABOLIC Hx Diabetes Mellitus Type 2: Yes Hx Hypothyroidism: No - HEMATOLOGICAL/ONCOLOGICAL Hx Anemia: Yes Hx Human Immunodeficiency Virus (HIV): No - INTEGUMENTARY Hx Dermatological Problems: No - MUSCULOSKELETAL/RHEUMATOLOGICAL Hx Arthritis: Yes Hx Falls: Yes Hx Rheumatoid Arthritis: No - GASTROINTESTINAL Hx Gastrointestinal Disorders: Yes Hx Diarrhea: Yes Hx Gastritis: Yes Hx Gastroesophageal Reflux: Yes - GENITOURINARY/GYNECOLOGICAL Hx Genitourinary Disorders: No - PSYCHIATRIC Hx Psychophysiologic Disorder: Yes Hx Anxiety: Yes - SURGICAL HISTORY Hx Appendectomy: Yes Hx Carotid Endarterectomy: Yes Hx Cholecystectomy: Yes Hx Coronary Artery Bypass Graft: Yes - ANESTHESIA Hx Anesthesia: Yes Hx Anesthesia Reactions: No Hx Malignant Hyperthermia: No Meds Home Medications: Home Medication List Medication Instructions Recorded Confirmed Type predniSONE [predniSONE Tab] 20 mg PO DAILY #5 tab 09/21/17 Rx Allergies/Adverse Reactions: Allergies Allergy/AdvReac Type Severity Reaction Status Date / Time oxycodone Allergy RASH Verified 10/18/17 22:31 Physical Exam - Head Exam Head Exam: NORMAL INSPECTION - Eye Exam Eye Exam: Normal appearance - ENT Exam ENT Exam: Mucous Membranes Moist - Respiratory Exam Respiratory Exam: Decreased Breath Sounds, Rales, Rhonchi - Cardiovascular Exam Cardiovascular Exam: REGULAR RHYTHM - GI/Abdominal Exam GI & Abdominal Exam: Normal Bowel Sounds - Neurological Exam Neurological exam: CN II-XII Intact, Oriented x3 - Psychiatric Exam Psychiatric exam: Depressed Results - Vital Signs Recent Vital Signs: Last Vital Signs Temp 98 F 09/16/17 20:03 Pulse 60 09/16/17 20:03 Resp 16 09/16/17 20:03 BP 98/56 L 09/16/17 20:03 Pulse Ox 100 09/16/17 20:03 - Labs Result Diagrams: 09/19/17 10:20 09/19/17 10:20 Labs: Laboratory Results - last 24 hr 09/16/17 09/16/17 09/16/17 07:50 08:53 08:53 WBC 9.2 RBC 3.29 L Hgb 9.9 L Hct 31.0 L MCV 94.5 MCH 30.2 MCHC 32.0 L RDW 15.6 H Plt Count 171 MPV 10.5 Neut % (Auto) 63.4 Lymph % (Auto) 27.8 [place] % (Auto) 7.9 Eos % (Auto) 0.5 Baso % (Auto) 0.4 Neut # 5.8 Lymph # 2.6 [place] # 0.7 Eos # 0.0 Baso # 0.0 pO2 VBG pH VBG pCO2 VBG HCO3 VBG Total CO2 VBG O2 Sat (Calc) VBG Base Excess VBG Potassium Sodium Chloride Glucose Lactate FiO2 Potassium Carbon Dioxide Anion Gap BUN Creatinine Est GFR ( Amer) Est GFR (Non-Af Amer) POC Glucose (mg/dL) 118 H Random Glucose Calcium Total Bilirubin AST ALT Alkaline Phosphatase Troponin I 0.0660 Total Protein Albumin Globulin Albumin/Globulin Ratio Venous Blood Potassium Influenza Typ A,B (EIA) 09/16/17 09/16/17 09/16/17 08:53 09:00 11:10 WBC RBC Hgb Hct MCV MCH MCHC RDW Plt Count MPV Neut % (Auto) Lymph % (Auto) [place] % (Auto) Eos % (Auto) Baso % (Auto) Neut # Lymph # [place] # Eos # Baso # pO2 23 L VBG pH 7.34 VBG pCO2 59 VBG HCO3 26.6 VBG Total CO2 33.6 H VBG O2 Sat (Calc) 43.2 VBG Base Excess 4.3 H VBG Potassium 4.6 Sodium 139.0 141 Chloride 104.0 102 Glucose 108 H Lactate 1.9 FiO2 40.0 Potassium 4.7 Carbon Dioxide 29 Anion Gap 15 BUN 51 H Creatinine 1.2 Est GFR ( Amer) 52 Est GFR (Non-Af Amer) 43 POC Glucose (mg/dL) Random Glucose 107 H Calcium 9.7 Total Bilirubin 0.2 AST 167 H D ALT 131 H D Alkaline Phosphatase 84 Troponin I Total Protein 7.0 Albumin 3.7 Globulin 3.3 Albumin/Globulin Ratio 1.1 Venous Blood Potassium 4.6 Influenza Typ A,B (EIA) Negative for flu a/b Assessment & Plan (1) COPD exacerbation Status: Resolved Priority: Low (2) Chronic congestive heart failure Status: Acute (3) Coronary artery disease Status: Acute (4) Debility Status: Acute (5) HTN (hypertension) Status: Chronic Priority: Medium - Assessment and Plan (Free Text) Plan: start IV steroids IV antibiotics monitor labs neb tx Oxygen
[2017-09-17] MEDS: Albuterol-Ipratrop 3 mg / 0.5 (3 ml) UD INH SCH ×5 (04:57→19:03)
[2017-09-17] MEDS: Pantoprazole 40 mg EC Tab PO SCH (09:35)
[2017-09-17] MEDS: Multivitamin With Minerals Tab PO SCH (09:35)
[2017-09-17] MEDS: metOLazone 2.5 MG TAB PO SCH (09:35)
[2017-09-17] MEDS: Digoxin 125 mcg (0.125 mg) Tab PO SCH (09:35)
[2017-09-17] MEDS: guaiFENesin DM 200 mg-20 mg/10 ml UD PO PRN ×2 (09:39→16:39)
--- NOTE | 2017-09-17 10:21 | CP.PCM.PCO ---
Assessment & Plan - Assessment and Plan (Free Text) Assessment: Pt seen and examined Denies chest pain, shortness of breath, ambulating without difficulty. TUAN drains removed bilaterally with no complications. RX given for muscle relaxant and pain management. Pt to follow up with Dr Gray next sunday. Dr Lawrence made aware.
[2017-09-17 11:00] LABS: CALCIUM 9.8 mg/dL (8.4-10.2)
[2017-09-18] MEDS: Albuterol-Ipratrop 3 mg / 0.5 (3 ml) UD INH SCH ×7 (00:11→23:46)
[2017-09-18 04:00] LABS: HEMOGLOBIN 11.6 g/dL (12.0-16.0); MEAN CELL VOLUME 87.1 fl (81.0-99.0); MEAN CORPUSCULAR HEMOGLOBIN 28.3 pg (27.0-31.0); MEAN CORPUSCULAR HGB CONC 32.5 g/dL (33.0-37.0); RBC 4.12 Mil/uL (3.80-5.20); RED CELL DISTRIBUTION WIDTH 14.4 % (11.5-14.5); WHITE BLOOD COUNT 8.2 K/uL (4.8-10.8)
[2017-09-18] MEDS: Digoxin 125 mcg (0.125 mg) Tab PO SCH (08:57)
[2017-09-18] MEDS: metOLazone 2.5 MG TAB PO SCH (08:57)
[2017-09-18] MEDS: Pantoprazole 40 mg EC Tab PO SCH (08:57)
[2017-09-18] MEDS: Multivitamin With Minerals Tab PO SCH (08:57)
--- NOTE | 2017-09-18 12:46 | CP.PCM.PN ---
<Anna Lombardi - Last Filed: 09/18/17 12:44> Subjective - Date & Time of Evaluation Date of Evaluation: 09/18/17 Time of Evaluation: 10:20 - Subjective Subjective: Patient seen and examined with attending- Dr. Lawrence. Awake and Alert, cooperative with exam, parcipating in PT with assistance. Objective - Vital Signs/Intake and Output Vital Signs (last 24 hours): Temp Pulse Resp BP Pulse Ox 97.4 F L 64 20 127/71 95 09/18/17 12:25 09/18/17 12:25 09/18/17 12:25 09/18/17 10:17 09/18/17 12:25 - Medications Medications: Current Medications Acetaminophen (Tylenol 325mg Tab) 325 mg PO Q4 PRN PRN Reason: Fever >100.4 F, headache Albuterol/Ipratropium (Duoneb 3 Mg/0.5 Mg (3 Ml) Ud) 3 ml IH Q6H PRN PRN Reason: Shortness of Breath Albuterol/Ipratropium (Duoneb 3 Mg/0.5 Mg (3 Ml) Ud) 3 ml INH RQ4 [facility] Last Admin: 09/18/17 11:17 Dose: 3 ml Carvedilol (Coreg) 12.5 mg PO BID [facility] Last Admin: 09/18/17 10:17 Dose: 12.5 mg Digoxin (Lanoxin) 0.125 mg PO DAILY [facility] Last Admin: 09/18/17 08:57 Dose: 0.125 mg Ferrous Sulfate (Feosol) 325 mg PO DAILY [facility] Last Admin: 09/18/17 08:57 Dose: 325 mg Furosemide (Lasix) 40 mg IVP Q12 [facility] Last Admin: 09/18/17 10:12 Dose: Not Given Guaifenesin/Dextromethorphan (Robitussin Dm) 10 ml PO Q8 PRN PRN Reason: Cough Last Admin: 09/17/17 16:39 Dose: 10 ml Methylprednisolone (Solu-Medrol) 60 mg IVP Q6 [facility] Last Admin: 09/18/17 09:01 Dose: 60 mg Metolazone (Zaroxolyn) 2.5 mg PO DAILY [facility] Last Admin: 09/18/17 08:57 Dose: 2.5 mg Multivitamins/Minerals (Therapeutic-M Tab) 1 tab PO DAILY [facility] Last Admin: 09/18/17 08:57 Dose: 1 tab Pantoprazole Sodium (Protonix Ec Tab) 40 mg PO DAILY [facility] Last Admin: 09/18/17 08:57 Dose: 40 mg Rivaroxaban (Xarelto) 15 mg PO DAILY [facility] PRN Reason: Protocol Last Admin: 09/18/17 08:57 Dose: 15 mg Sitagliptin Phosphate (Januvia) 25 mg PO DAILY [facility] Last Admin: 09/18/17 08:57 Dose: 25 mg Valsartan (Diovan) 160 mg PO DAILY [facility] Last Admin: 09/18/17 09:03 Dose: Not Given - Labs Labs: 09/18/17 03:56 09/17/17 10:38 - Constitutional Appears: No Acute Distress - Head Exam Head Exam: ATRAUMATIC, NORMOCEPHALIC - Eye Exam Eye Exam: EOMI - ENT Exam ENT Exam: Mucous Membranes Moist - Neck Exam Neck Exam: Full ROM - Respiratory Exam Respiratory Exam: Decreased Breath Sounds (lower lobes), Rhonchi (diffuse), Wheezes (expiratory) - Cardiovascular Exam Cardiovascular Exam: REGULAR RHYTHM, +S1, +S2 - GI/Abdominal Exam GI & Abdominal Exam: Soft, Normal Bowel Sounds - Extremities Exam Extremities Exam: Full ROM - Neurological Exam Neurological Exam: Alert, Awake, CN II-XII Intact, Oriented x3 - Psychiatric Exam Psychiatric exam: Normal Affect, Normal Mood - Skin Skin Exam: Warm Assessment and Plan - Assessment and Plan (Free Text) Assessment: 82 yo female admitted for COPD exacerbation. - Duoneb RQ4, albuterol PRN, IV steriods -supplemental O2 PRN for O2 sat less than 92 -monitor O2 sat -PT/OT <Juan A Lawrence L - Last Filed: 09/21/17 09:57> Objective - Vital Signs/Intake and Output Vital Signs (last 24 hours): Temp Pulse Resp BP Pulse Ox 97.8 F 63 18 134/67 94 L 09/21/17 08:26 09/21/17 08:26 09/21/17 08:26 09/21/17 08:26 09/21/17 08:26 - Medications Medications: Current Medications Acetaminophen (Tylenol 325mg Tab) 325 mg PO Q4 PRN PRN Reason: Fever >100.4 F, headache Albuterol/Ipratropium (Duoneb 3 Mg/0.5 Mg (3 Ml) Ud) 3 ml IH Q6H PRN PRN Reason: Shortness of Breath Last Admin: 09/18/17 18:20 Dose: 3 ml Albuterol/Ipratropium (Duoneb 3 Mg/0.5 Mg (3 Ml) Ud) 3 ml INH RQ4 [facility] Last Admin: 09/21/17 08:18 Dose: 3 ml Carvedilol (Coreg) 12.5 mg PO BID [facility] Last Admin: 09/21/17 08:01 Dose: 12.5 mg Digoxin (Lanoxin) 0.125 mg PO DAILY [facility] Last Admin: 09/21/17 08:06 Dose: 0.125 mg Ferrous Sulfate (Feosol) 325 mg PO DAILY [facility] Last Admin: 09/21/17 08:02 Dose: 325 mg Furosemide (Lasix) 40 mg IVP Q12 [facility] Last Admin: 09/21/17 08:06 Dose: 40 mg Guaifenesin/Dextromethorphan (Robitussin Dm) 10 ml PO Q8 PRN PRN Reason: Cough Last Admin: 09/17/17 16:39 Dose: 10 ml Insulin Human Regular (Humulin R) 0 units SC ACHS [facility] PRN Reason: Protocol Last Admin: 09/21/17 06:37 Dose: 2 units Metolazone (Zaroxolyn) 2.5 mg PO DAILY [facility] Last Admin: 09/21/17 08:07 Dose: 2.5 mg Multivitamins/Minerals (Therapeutic-M Tab) 1 tab PO DAILY [facility] Last Admin: 09/21/17 08:07 Dose: 1 tab Pantoprazole Sodium (Protonix Ec Tab) 40 mg PO DAILY [facility] Last Admin: 09/21/17 08:06 Dose: 40 mg Prednisone (Prednisone Tab) 20 mg PO DAILY [facility] Last Admin: 09/21/17 08:06 Dose: 20 mg Rivaroxaban (Xarelto) 15 mg PO DAILY [facility] PRN Reason: Protocol Last Admin: 09/21/17 08:07 Dose: 15 mg Sitagliptin Phosphate (Januvia) 25 mg PO DAILY [facility] Last Admin: 09/21/17 08:02 Dose: 25 mg Valsartan (Diovan) 160 mg PO DAILY [facility] Last Admin: 09/21/17 08:07 Dose: 160 mg - Labs Labs: 09/19/17 10:20 09/19/17 10:20 Assessment and Plan - Assessment and Plan (Free Text) Plan: I was present during evaluation and discussed with DR Lombardi re plans of care and mgt. Juan A Lawrence M.D.
[2017-09-18] MEDS: Insulin Regular 100 units/ml SC SCH ×2 (17:19→22:00)
[2017-09-19] MEDS: Albuterol-Ipratrop 3 mg / 0.5 (3 ml) UD INH SCH ×5 (04:36→20:25)
[2017-09-19] MEDS: Insulin Regular 100 units/ml SC SCH ×4 (06:33→21:32)
--- NOTE | 2017-09-19 06:54 | PQF GENQUE ---
This form is a permanent part of the medical record 09/19/17 Dr. Lawrence, Documentation in the H&P under the [facility] template is atrial fibrillation. Medication includes: Xarelto, Lanoxin. Please clarify the type of atrial fibrillation. Clarification of your documentation is requested to better reflect the severity of illness and intensity of treatment of your patient. Indicators present [] Specify: [] [] Specify: [] [] Specify: [] [] Specify: [] Location in the medical record that reflects the above clinical findings: [] Treatment Provided: [] PHYSICIAN'S RESPONSE Please clarify the type of atrial fibrillation: [] Chronic [] Paroxysmal [] Permanent [] Persistent [] Other (please specify type) [] Clinically unable to determine [] Unknown Based on your medical judgment of the clinical indicators outlined above please clarify the following: [] Practitioner response [] If unable to determine, please check the box, sign and date. Present On Admission (POA) Indicator: [] Present at the time of admission [] Not present at the time of admission [] Clinically Undetermined In responding to this query, please exercise your independent professional judgment. The fact that a question is asked does not imply that any particular answer is desired or expected. Thank you for your clarification on this documentation. If you have any questions please call:ext [phone] * Thank you, Brenda Hendrickson RN CDMP MTDD
--- NOTE | 2017-09-19 07:00 | PQF GENQUE ---
This form is a permanent part of the medical record 09/19/17 Dr. Lawrence, Please specify the Type and Acuity of heart failure in your progress notes. Patient presents with sudden onset of SOB. H&P: History of recurrent exacerbation of COPD and CHF. CXR: Pulmonary vascular congestion with small bilateral pleural effusions. Medication includes: Lasix IV q 12 hours, Coreg, Lanoxin,Zaroxolyn. Clarification of your documentation is requested to better reflect the severity of illness and intensity of treatment of your patient. Indicators present [] Specify: [] [] Specify: [] [] Specify: [] [] Specify: [] Location in the medical record that reflects the above clinical findings: [] Treatment Provided: [] PHYSICIAN'S RESPONSE Based on your medical judgment of the clinical indicators outlined above please clarify the following: [] Practitioner response [] If unable to determine, please check the box, sign and date. Present On Admission (POA) Indicator: [] Present at the time of admission [] Not present at the time of admission [] Clinically Undetermined In responding to this query, please exercise your independent professional judgment. The fact that a question is asked does not imply that any particular answer is desired or expected. Thank you for your clarification on this documentation. If you have any questions please call:ext [phone] * Thank you, Brenda Hendrickson RN [facility]
--- NOTE | 2017-09-19 07:58 | CARD ---
APPROVED REPORT EKG Measurement Heart [id number] <Conclusion> AV dual-paced rhythm
[2017-09-19] MEDS: metOLazone 2.5 MG TAB PO SCH (09:40)
[2017-09-19] MEDS: Multivitamin With Minerals Tab PO SCH (09:40)
[2017-09-19] MEDS: Digoxin 125 mcg (0.125 mg) Tab PO SCH (09:41)
[2017-09-19] MEDS: Pantoprazole 40 mg EC Tab PO SCH (09:42)
[2017-09-19 10:38] LABS: HEMOGLOBIN 9.2 g/dL (12.0-16.0); MEAN CORPUSCULAR HEMOGLOBIN 30.7 pg (27.0-31.0); MEAN CORPUSCULAR HGB CONC 33.1 g/dL (33.0-37.0); RBC 2.99 Mil/uL (3.80-5.20); RED CELL DISTRIBUTION WIDTH 14.9 % (11.5-14.5)
[2017-09-19 10:50] LABS: MEAN CELL VOLUME 92.7 fl (81.0-99.0)
[2017-09-19 10:59] LABS: CALCIUM 9.3 mg/dL (8.4-10.2)
--- NOTE | 2017-09-19 13:33 | CP.PCM.PN ---
Addendum entered and electronically signed by Anna Lombardi MD 09/20/17 15 :48: PMHx chronic heart failure with preserved EF Addendum entered and electronically signed by Anna Lombardi MD 09/19/17 14 :35: -patient has PMHx of heart failure with preserved EF s/p mitral valve prosthesis ; echo 05/15/17: normal LVEF with severe pulm HTN, severe tricuspid regurgitation -PMHx chronic A-fib-rate controlled s/p AV fabiana ablation and permanent pacemaker placement Original Note: <Anna Lombardi - Last Filed: 09/19/17 13:31> Subjective - Date & Time of Evaluation Date of Evaluation: 09/19/17 Time of Evaluation: 10:05 - Subjective Subjective: Patient was seen and examined at bedside with attending- Dr. Lawrence. Patient was alert, awake, cooperative with exam. Reports minimal improvement in SOB. Tolerating PO diet. Denies chest pain, headache, nausea, and vomiting. Objective - Vital Signs/Intake and Output Vital Signs (last 24 hours): Temp Pulse Resp BP Pulse Ox 98.3 F 65 20 129/69 96 09/19/17 12:09 09/19/17 12:09 09/19/17 12:09 09/19/17 12:41 09/19/17 12:09 - Medications Medications: Current Medications Acetaminophen (Tylenol 325mg Tab) 325 mg PO Q4 PRN PRN Reason: Fever >100.4 F, headache Albuterol/Ipratropium (Duoneb 3 Mg/0.5 Mg (3 Ml) Ud) 3 ml IH Q6H PRN PRN Reason: Shortness of Breath Last Admin: 09/18/17 18:20 Dose: 3 ml Albuterol/Ipratropium (Duoneb 3 Mg/0.5 Mg (3 Ml) Ud) 3 ml INH RQ4 [facility] Last Admin: 09/19/17 11:24 Dose: 3 ml Carvedilol (Coreg) 12.5 mg PO BID [facility] Last Admin: 09/19/17 09:42 Dose: Not Given Digoxin (Lanoxin) 0.125 mg PO DAILY [facility] Last Admin: 09/19/17 09:41 Dose: 0.125 mg Ferrous Sulfate (Feosol) 325 mg PO DAILY [facility] Last Admin: 01/17/18 09:41 Dose: 325 mg Furosemide (Lasix) 40 mg IVP Q12 [facility] Last Admin: 09/19/17 12:41 Dose: 40 mg Guaifenesin/Dextromethorphan (Robitussin Dm) 10 ml PO Q8 PRN PRN Reason: Cough Last Admin: 09/17/17 16:39 Dose: 10 ml Insulin Human Regular (Humulin R) 0 units SC ACHS [facility] PRN Reason: Protocol Last Admin: 09/19/17 12:40 Dose: 3 u Methylprednisolone (Solu-Medrol) 60 mg IVP Q6 [facility] Last Admin: 09/19/17 09:41 Dose: 60 mg Metolazone (Zaroxolyn) 2.5 mg PO DAILY [facility] Last Admin: 09/19/17 09:40 Dose: 2.5 mg Multivitamins/Minerals (Therapeutic-M Tab) 1 tab PO DAILY [facility] Last Admin: 09/19/17 09:40 Dose: 1 tab Pantoprazole Sodium (Protonix Ec Tab) 40 mg PO DAILY [facility] Last Admin: 09/19/17 09:42 Dose: 40 mg Rivaroxaban (Xarelto) 15 mg PO DAILY [facility] PRN Reason: Protocol Last Admin: 09/19/17 09:41 Dose: 15 mg Sitagliptin Phosphate (Januvia) 25 mg PO DAILY [facility] Last Admin: 09/19/17 09:42 Dose: 25 mg Valsartan (Diovan) 160 mg PO DAILY [facility] Last Admin: 09/19/17 09:42 Dose: Not Given - Labs Labs: 09/19/17 10:20 09/19/17 10:20 - Constitutional Appears: No Acute Distress - Head Exam Head Exam: ATRAUMATIC, NORMOCEPHALIC - Eye Exam Eye Exam: EOMI - ENT Exam ENT Exam: Mucous Membranes Moist - Neck Exam Neck Exam: Full ROM - Respiratory Exam Respiratory Exam: Rhonchi (minimal diffuse), NORMAL BREATHING PATTERN - Cardiovascular Exam Cardiovascular Exam: REGULAR RHYTHM, +S1, +S2 - GI/Abdominal Exam GI & Abdominal Exam: Soft, Normal Bowel Sounds. absent: Tenderness - Extremities Exam Extremities Exam: Full ROM. absent: Pedal Edema - Neurological Exam Neurological Exam: Alert, Awake, CN II-XII Intact, Oriented x3 - Psychiatric Exam Psychiatric exam: Normal Affect, Normal Mood - Skin Skin Exam: Dry, Warm Assessment and Plan - Assessment and Plan (Free Text) Assessment: 82 yo female admitted for COPD exacerbation. - Duoneb RQ4, albuterol PRN, daily taper of IV steroids -supplemental O2 PRN for O2 sat less than 92 -monitor O2 sat -PT/OT <Juan A Lawrence - Last Filed: 09/21/17 09:58> Objective - Vital Signs/Intake and Output Vital Signs (last 24 hours): Temp Pulse Resp BP Pulse Ox 97.8 F 63 18 134/67 94 L 09/21/17 08:26 09/21/17 08:26 09/21/17 08:26 09/21/17 08:26 09/21/17 08:26 - Medications Medications: Current Medications Acetaminophen (Tylenol 325mg Tab) 325 mg PO Q4 PRN PRN Reason: Fever >100.4 F, headache Albuterol/Ipratropium (Duoneb 3 Mg/0.5 Mg (3 Ml) Ud) 3 ml IH Q6H PRN PRN Reason: Shortness of Breath Last Admin: 09/18/17 18:20 Dose: 3 ml Albuterol/Ipratropium (Duoneb 3 Mg/0.5 Mg (3 Ml) Ud) 3 ml INH RQ4 [facility] Last Admin: 09/21/17 08:18 Dose: 3 ml Carvedilol (Coreg) 12.5 mg PO BID [facility] Last Admin: 09/21/17 08:01 Dose: 12.5 mg Digoxin (Lanoxin) 0.125 mg PO DAILY [facility] Last Admin: 09/21/17 08:06 Dose: 0.125 mg Ferrous Sulfate (Feosol) 325 mg PO DAILY [facility] Last Admin: 09/21/17 08:02 Dose: 325 mg Furosemide (Lasix) 40 mg IVP Q12 [facility] Last Admin: 09/21/17 08:06 Dose: 40 mg Guaifenesin/Dextromethorphan (Robitussin Dm) 10 ml PO Q8 PRN PRN Reason: Cough Last Admin: 09/17/17 16:39 Dose: 10 ml Insulin Human Regular (Humulin R) 0 units SC ACHS [facility] PRN Reason: Protocol Last Admin: 09/21/17 06:37 Dose: 2 units Metolazone (Zaroxolyn) 2.5 mg PO DAILY [facility] Last Admin: 01/19/18 08:07 Dose: 2.5 mg Multivitamins/Minerals (Therapeutic-M Tab) 1 tab PO DAILY [facility] Last Admin: 09/21/17 08:07 Dose: 1 tab Pantoprazole Sodium (Protonix Ec Tab) 40 mg PO DAILY [facility] Last Admin: 09/21/17 08:06 Dose: 40 mg Prednisone (Prednisone Tab) 20 mg PO DAILY [facility] Last Admin: 09/21/17 08:06 Dose: 20 mg Rivaroxaban (Xarelto) 15 mg PO DAILY [facility] PRN Reason: Protocol Last Admin: 09/21/17 08:07 Dose: 15 mg Sitagliptin Phosphate (Januvia) 25 mg PO DAILY [facility] Last Admin: 09/21/17 08:02 Dose: 25 mg Valsartan (Diovan) 160 mg PO DAILY [facility] Last Admin: 09/21/17 08:07 Dose: 160 mg - Labs Labs: 09/19/17 10:20 09/19/17 10:20 Assessment and Plan - Assessment and Plan (Free Text) Plan: I was present during evaluation and discussed with Dr Lombardi re plans of care and mgt. Juan A Lawrence M.D.
[2017-09-19] MEDS: MethylPREDNISolone 40 mg Vial IVP SCH (21:28)
[2017-09-20] MEDS: Albuterol-Ipratrop 3 mg / 0.5 (3 ml) UD INH SCH ×7 (00:31→23:43)
[2017-09-20] MEDS: Insulin Regular 100 units/ml SC SCH ×4 (06:47→22:00)
[2017-09-20] MEDS: Digoxin 125 mcg (0.125 mg) Tab PO SCH (08:37)
[2017-09-20] MEDS: MethylPREDNISolone 40 mg Vial IVP SCH (08:37)
[2017-09-20] MEDS: metOLazone 2.5 MG TAB PO SCH (08:38)
[2017-09-20] MEDS: Multivitamin With Minerals Tab PO SCH (08:38)
[2017-09-20] MEDS: Pantoprazole 40 mg EC Tab PO SCH (08:39)
--- NOTE | 2017-09-20 13:01 | CP.PCM.PN ---
<Anna Lombardi - Last Filed: 09/20/17 12:59> Subjective - Date & Time of Evaluation Date of Evaluation: 09/20/17 Time of Evaluation: 10:35 - Subjective Subjective: Patient seen and examined at bedside with attending-Dr. Lawrence. Awake, alert. Reports improvement in SOB. Denies dizziness or chest pain. Objective - Vital Signs/Intake and Output Vital Signs (last 24 hours): Temp Pulse Resp BP Pulse Ox 97.6 F 62 18 109/59 L 100 09/20/17 12:00 09/20/17 12:00 09/20/17 12:00 09/20/17 12:00 09/20/17 12:00 - Medications Medications: Current Medications Acetaminophen (Tylenol 325mg Tab) 325 mg PO Q4 PRN PRN Reason: Fever >100.4 F, headache Albuterol/Ipratropium (Duoneb 3 Mg/0.5 Mg (3 Ml) Ud) 3 ml IH Q6H PRN PRN Reason: Shortness of Breath Last Admin: 09/18/17 18:20 Dose: 3 ml Albuterol/Ipratropium (Duoneb 3 Mg/0.5 Mg (3 Ml) Ud) 3 ml INH RQ4 [facility] Last Admin: 09/20/17 12:09 Dose: 3 ml Carvedilol (Coreg) 12.5 mg PO BID [facility] Last Admin: 09/20/17 08:37 Dose: 12.5 mg Digoxin (Lanoxin) 0.125 mg PO DAILY [facility] Last Admin: 09/20/17 08:37 Dose: 0.125 mg Ferrous Sulfate (Feosol) 325 mg PO DAILY [facility] Last Admin: 09/20/17 08:38 Dose: 325 mg Furosemide (Lasix) 40 mg IVP Q12 [facility] Last Admin: 09/20/17 08:39 Dose: 40 mg Guaifenesin/Dextromethorphan (Robitussin Dm) 10 ml PO Q8 PRN PRN Reason: Cough Last Admin: 09/17/17 16:39 Dose: 10 ml Insulin Human Regular (Humulin R) 0 units SC ACHS [facility] PRN Reason: Protocol Last Admin: 09/20/17 12:38 Dose: 3 units Metolazone (Zaroxolyn) 2.5 mg PO DAILY [facility] Last Admin: 09/20/17 08:38 Dose: 2.5 mg Multivitamins/Minerals (Therapeutic-M Tab) 1 tab PO DAILY [facility] Last Admin: 09/20/17 08:38 Dose: 1 tab Pantoprazole Sodium (Protonix Ec Tab) 40 mg PO DAILY [facility] Last Admin: 09/20/17 08:39 Dose: 40 mg Prednisone (Prednisone Tab) 20 mg PO DAILY [facility] Rivaroxaban (Xarelto) 15 mg PO DAILY [facility] PRN Reason: Protocol Last Admin: 09/20/17 08:39 Dose: 15 mg Sitagliptin Phosphate (Januvia) 25 mg PO DAILY [facility] Last Admin: 09/20/17 08:38 Dose: 25 mg Valsartan (Diovan) 160 mg PO DAILY [facility] Last Admin: 09/20/17 08:37 Dose: 160 mg - Labs Labs: 09/19/17 10:20 09/19/17 10:20 - Constitutional Appears: Cachectic, Chronically Ill - Eye Exam Eye Exam: EOMI - ENT Exam ENT Exam: Mucous Membranes Moist - Neck Exam Neck Exam: Full ROM - Respiratory Exam Respiratory Exam: Rhonchi (mild diffuse), Wheezes (mild expiratory), NORMAL BREATHING PATTERN - Cardiovascular Exam Cardiovascular Exam: REGULAR RHYTHM, +S1, +S2 - GI/Abdominal Exam GI & Abdominal Exam: Soft, Normal Bowel Sounds. absent: Tenderness - Extremities Exam Extremities Exam: Full ROM. absent: Pedal Edema - Neurological Exam Neurological Exam: Alert, Awake, CN II-XII Intact, Oriented x3 - Psychiatric Exam Psychiatric exam: Normal Affect, Normal Mood - Skin Skin Exam: Dry, Warm Assessment and Plan - Assessment and Plan (Free Text) Assessment: 82 yo female admitted for COPD exacerbation. -daily taper of steroids to PO, Duoneb RQ4, albuterol PRN -supplemental O2 PRN for O2 sat less than 92 -monitor O2 sat -PT/OT: recommend discharge home with services <Juan A Lawrence - Last Filed: 09/21/17 09:59> Objective - Vital Signs/Intake and Output Vital Signs (last 24 hours): Temp Pulse Resp BP Pulse Ox 97.8 F 63 18 134/67 94 L 09/21/17 08:26 09/21/17 08:26 09/21/17 08:26 09/21/17 08:26 09/21/17 08:26 - Medications Medications: Current Medications Acetaminophen (Tylenol 325mg Tab) 325 mg PO Q4 PRN PRN Reason: Fever >100.4 F, headache Albuterol/Ipratropium (Duoneb 3 Mg/0.5 Mg (3 Ml) Ud) 3 ml IH Q6H PRN PRN Reason: Shortness of Breath Last Admin: 09/18/17 18:20 Dose: 3 ml Albuterol/Ipratropium (Duoneb 3 Mg/0.5 Mg (3 Ml) Ud) 3 ml INH RQ4 [facility] Last Admin: 09/21/17 08:18 Dose: 3 ml Carvedilol (Coreg) 12.5 mg PO BID [facility] Last Admin: 09/21/17 08:01 Dose: 12.5 mg Digoxin (Lanoxin) 0.125 mg PO DAILY [facility] Last Admin: 09/21/17 08:06 Dose: 0.125 mg Ferrous Sulfate (Feosol) 325 mg PO DAILY [facility] Last Admin: 09/21/17 08:02 Dose: 325 mg Furosemide (Lasix) 40 mg IVP Q12 [facility] Last Admin: 09/21/17 08:06 Dose: 40 mg Guaifenesin/Dextromethorphan (Robitussin Dm) 10 ml PO Q8 PRN PRN Reason: Cough Last Admin: 09/17/17 16:39 Dose: 10 ml Insulin Human Regular (Humulin R) 0 units SC ACHS [facility] PRN Reason: Protocol Last Admin: 09/21/17 06:37 Dose: 2 units Metolazone (Zaroxolyn) 2.5 mg PO DAILY [facility] Last Admin: 09/21/17 08:07 Dose: 2.5 mg Multivitamins/Minerals (Therapeutic-M Tab) 1 tab PO DAILY [facility] Last Admin: 09/21/17 08:07 Dose: 1 tab Pantoprazole Sodium (Protonix Ec Tab) 40 mg PO DAILY [facility] Last Admin: 09/21/17 08:06 Dose: 40 mg Prednisone (Prednisone Tab) 20 mg PO DAILY [facility] Last Admin: 09/21/17 08:06 Dose: 20 mg Rivaroxaban (Xarelto) 15 mg PO DAILY [facility] PRN Reason: Protocol Last Admin: 09/21/17 08:07 Dose: 15 mg Sitagliptin Phosphate (Januvia) 25 mg PO DAILY [facility] Last Admin: 09/21/17 08:02 Dose: 25 mg Valsartan (Diovan) 160 mg PO DAILY [facility] Last Admin: 09/21/17 08:07 Dose: 160 mg - Labs Labs: 09/19/17 10:20 09/19/17 10:20 Assessment and Plan - Assessment and Plan (Free Text) Plan: I was present during evaluation and discussed with Dr Lombardi re plans of care and mgt. Juan A Lawrence M.D.
[2017-09-21] MEDS: Albuterol-Ipratrop 3 mg / 0.5 (3 ml) UD INH SCH ×4 (04:32→15:32)
[2017-09-21] MEDS: Insulin Regular 100 units/ml SC SCH ×3 (06:37→16:27)
[2017-09-21] MEDS: Digoxin 125 mcg (0.125 mg) Tab PO SCH (08:06)
[2017-09-21] MEDS: Pantoprazole 40 mg EC Tab PO SCH (08:06)
[2017-09-21] MEDS: metOLazone 2.5 MG TAB PO SCH (08:07)
[2017-09-21] MEDS: Multivitamin With Minerals Tab PO SCH (08:07)
[2017-09-21 08:08] VITALS: PULSE 65
--- NOTE | 2017-09-21 09:49 | CP.PCM.DIS ---
<Anna Lombardi - Last Filed: 09/21/17 09:45> Provider - Provider Date of Admission: 09/17/17 10:06 Attending physician: Juan A Lawrence MD Primary care physician: Dr. Lawrence Time Spent in preparation of Discharge (in minutes): 30 Diagnosis - Discharge Diagnosis (1) COPD exacerbation Status: Resolved Priority: Low Hospital Course - Lab Results Lab Results: Micro Results 09/16/17 08:53 Blood-Venous Blood Culture - Final NO GROWTH AFTER 5 DAYS 09/16/17 08:53 Blood-Venous Gram Stain - Final TEST NOT PERFORMED Most Recent Lab Values WBC 10.0 K/uL (4.8-10.8) 09/19/17 10:20 RBC 2.99 Mil/uL (3.80-5.20) L 09/19/17 10:20 Hgb 9.2 g/dL (12.0-16.0) L D 09/19/17 10:20 Hct 27.7 % (34.0-47.0) L 09/19/17 10:20 MCV 92.7 fl (81.0-99.0) D 09/19/17 10:20 MCH 30.7 pg (27.0-31.0) 09/19/17 10:20 MCHC 33.1 g/dL (33.0-37.0) 09/19/17 10:20 RDW 14.9 % (11.5-14.5) H 09/19/17 10:20 Plt Count 171 K/uL (130-400) D 09/19/17 10:20 MPV 10.5 fl (7.2-11.7) 09/16/17 08:53 Neut % (Auto) 63.4 % (50.0-75.0) 09/16/17 08:53 Lymph % (Auto) 27.8 % (20.0-40.0) 09/16/17 08:53 [place] % (Auto) 7.9 % (0.0-10.0) 09/16/17 08:53 Eos % (Auto) 0.5 % (0.0-4.0) 09/16/17 08:53 Baso % (Auto) 0.4 % (0.0-2.0) 09/16/17 08:53 Neut # 5.8 K/uL (1.8-7.0) 09/16/17 08:53 Lymph # 2.6 K/uL (1.0-4.3) 09/16/17 08:53 [place] # 0.7 K/uL (0.0-0.8) 09/16/17 08:53 Eos # 0.0 K/uL (0.0-0.7) 09/16/17 08:53 Baso # 0.0 K/uL (0.0-0.2) 09/16/17 08:53 pO2 23 mm/Hg (30-55) L 09/16/17 09:00 VBG pH 7.34 (7.32-7.43) 09/16/17 09:00 VBG pCO2 59 mmHg (40-60) 09/16/17 09:00 VBG HCO3 26.6 mmol/L 09/16/17 09:00 VBG Total CO2 33.6 mmol/L (22-28) H 09/16/17 09:00 VBG O2 Sat (Calc) 43.2 % (40-65) 09/16/17 09:00 VBG Base Excess 4.3 mmol/L (0.0-2.0) H 09/16/17 09:00 VBG Potassium 4.6 mmol/L (3.6-5.2) 09/16/17 09:00 Sodium 139.0 mmol/L (132-148) 09/16/17 09:00 Chloride 104.0 mmol/L (98-107) 09/16/17 09:00 Glucose 108 mg/dL (65-105) H 09/16/17 09:00 Lactate 1.9 mmol/L (0.7-2.1) 09/16/17 09:00 FiO2 40.0 % 09/16/17 09:00 Sodium 134 mmol/l (132-148) 09/19/17 10:20 Potassium 3.9 MMOL/L (3.6-5.0) 09/19/17 10:20 Chloride 93 mmol/L (98-107) L 09/19/17 10:20 Carbon Dioxide 26 mmol/L (22-30) 09/19/17 10:20 Anion Gap 19 (10-20) 09/19/17 10:20 BUN 67 mg/dl (7-17) H 09/19/17 10:20 Creatinine 1.2 mg/dl (0.7-1.2) 09/19/17 10:20 Est GFR ( Amer) 52 09/19/17 10:20 Est GFR (Non-Af Amer) 43 09/19/17 10:20 POC Glucose (mg/dL) 198 mg/dL (65-110) H 09/21/17 05:39 Random Glucose 250 mg/dL (65-105) H 09/19/17 10:20 Calcium 9.3 mg/dL (8.4-10.2) 09/19/17 10:20 Total Bilirubin 0.2 mg/dl (0.2-1.3) 09/16/17 11:10 AST 167 U/L (14-36) H D 09/16/17 11:10 ALT 131 U/L (9-52) H D 09/16/17 11:10 Alkaline Phosphatase 84 U/L (38-126) 09/16/17 11:10 Troponin I 0.0660 ng/mL (0.00-0.120) 09/16/17 08:53 Total Protein 7.0 G/DL (6.3-8.2) 09/16/17 11:10 Albumin 3.7 g/dL (3.5-5.0) 09/16/17 11:10 Globulin 3.3 gm/dL (2.2-3.9) 09/16/17 11:10 Albumin/Globulin Ratio 1.1 (1.0-2.1) 09/16/17 11:10 Venous Blood Potassium 4.6 mmol/L (3.6-5.2) 09/16/17 09:00 Influenza Typ A,B (EIA) Negative for flu a/b (NEGATIVE) 09/16/17 08:53 - Hospital Course Hospital Course: 82 yo female admitted for COPD exacerbation. Patient improved s/p IV steroids, respiratory treatments and supplemental O2. Patient is stable for discharge with instructions to follow up with PMD Dr. Lawrence on sunday09/26/17, resume home medications and take PO steroids as prescribed. - Date & Time of H&P Date of H&P: 09/16/17 Time of H&P: 15:40 Discharge Exam - Head Exam Head Exam: ATRAUMATIC, NORMOCEPHALIC - Eye Exam Eye Exam: EOMI - ENT Exam ENT Exam: Mucous Membranes Moist - Neck Exam Neck exam: Full Rom - Respiratory Exam Respiratory Exam: NORMAL BREATHING PATTERN - Cardiovascular Exam Cardiovascular Exam: REGULAR RHYTHM, +S1, +S2 - GI/Abdominal Exam GI & Abdominal Exam: Normal Bowel Sounds, Soft. absent: Tenderness - Extremities Exam Extremities exam: full ROM - Neurological Exam Neurological exam: Alert, CN II-XII Intact, Oriented x3 - Psychiatric Exam Psychiatric exam: Normal Affect, Normal Mood - Skin Skin Exam: Dry, Normal Color, Warm Discharge Plan - Discharge Medications Prescriptions: predniSONE [predniSONE Tab] 20 mg PO DAILY #5 tab - Follow Up Plan Condition: FAIR Disposition: HOME/ ROUTINE Additional Instructions: Follow up with PMD Dr. Lawrence on sunday09/26/17, resume home medications and take PO steroids as prescribed I was present during discharge evaluation and discussed with Dr Harjit fuentes plans of care. Juan A Lawrence M.D. Referrals: Juan A Lawrence MD [Family Provider] - Clinical Quality Measures - Date & Time of Discharge Summary Date of Discharge Summary: 09/21/17 Time of Discharge Summary: 09:52 <Juan A Lawrence - Last Filed: 09/21/17 10:00> Provider - Provider Date of Admission: 09/17/17 10:06 Attending physician: Juan A Lawrence MD Hospital Course - Lab Results Lab Results: Micro Results 09/16/17 08:53 Blood-Venous Blood Culture - Final NO GROWTH AFTER 5 DAYS 09/16/17 08:53 Blood-Venous Gram Stain - Final TEST NOT PERFORMED Most Recent Lab Values WBC 10.0 K/uL (4.8-10.8) 09/19/17 10:20 RBC 2.99 Mil/uL (3.80-5.20) L 09/19/17 10:20 Hgb 9.2 g/dL (12.0-16.0) L D 09/19/17 10:20 Hct 27.7 % (34.0-47.0) L 09/19/17 10:20 MCV 92.7 fl (81.0-99.0) D 09/19/17 10:20 MCH 30.7 pg (27.0-31.0) 09/19/17 10:20 MCHC 33.1 g/dL (33.0-37.0) 09/19/17 10:20 RDW 14.9 % (11.5-14.5) H 09/19/17 10:20 Plt Count 171 K/uL (130-400) D 09/19/17 10:20 MPV 10.5 fl (7.2-11.7) 09/16/17 08:53 Neut % (Auto) 63.4 % (50.0-75.0) 09/16/17 08:53 Lymph % (Auto) 27.8 % (20.0-40.0) 09/16/17 08:53 [place] % (Auto) 7.9 % (0.0-10.0) 09/16/17 08:53 Eos % (Auto) 0.5 % (0.0-4.0) 09/16/17 08:53 Baso % (Auto) 0.4 % (0.0-2.0) 09/16/17 08:53 Neut # 5.8 K/uL (1.8-7.0) 09/16/17 08:53 Lymph # 2.6 K/uL (1.0-4.3) 09/16/17 08:53 [place] # 0.7 K/uL (0.0-0.8) 09/16/17 08:53 Eos # 0.0 K/uL (0.0-0.7) 09/16/17 08:53 Baso # 0.0 K/uL (0.0-0.2) 09/16/17 08:53 pO2 23 mm/Hg (30-55) L 09/16/17 09:00 VBG pH 7.34 (7.32-7.43) 09/16/17 09:00 VBG pCO2 59 mmHg (40-60) 09/16/17 09:00 VBG HCO3 26.6 mmol/L 09/16/17 09:00 VBG Total CO2 33.6 mmol/L (22-28) H 09/16/17 09:00 VBG O2 Sat (Calc) 43.2 % (40-65) 09/16/17 09:00 VBG Base Excess 4.3 mmol/L (0.0-2.0) H 09/16/17 09:00 VBG Potassium 4.6 mmol/L (3.6-5.2) 09/16/17 09:00 Sodium 139.0 mmol/L (132-148) 09/16/17 09:00 Chloride 104.0 mmol/L (98-107) 09/16/17 09:00 Glucose 108 mg/dL (65-105) H 09/16/17 09:00 Lactate 1.9 mmol/L (0.7-2.1) 09/16/17 09:00 FiO2 40.0 % 09/16/17 09:00 Sodium 134 mmol/l (132-148) 09/19/17 10:20 Potassium 3.9 MMOL/L (3.6-5.0) 09/19/17 10:20 Chloride 93 mmol/L (98-107) L 09/19/17 10:20 Carbon Dioxide 26 mmol/L (22-30) 09/19/17 10:20 Anion Gap 19 (10-20) 09/19/17 10:20 BUN 67 mg/dl (7-17) H 09/19/17 10:20 Creatinine 1.2 mg/dl (0.7-1.2) 09/19/17 10:20 Est GFR ( Amer) 52 09/19/17 10:20 Est GFR (Non-Af Amer) 43 09/19/17 10:20 POC Glucose (mg/dL) 198 mg/dL (65-110) H 09/21/17 05:39 Random Glucose 250 mg/dL (65-105) H 09/19/17 10:20 Calcium 9.3 mg/dL (8.4-10.2) 09/19/17 10:20 Total Bilirubin 0.2 mg/dl (0.2-1.3) 09/16/17 11:10 AST 167 U/L (14-36) H D 09/16/17 11:10 ALT 131 U/L (9-52) H D 09/16/17 11:10 Alkaline Phosphatase 84 U/L (38-126) 09/16/17 11:10 Troponin I 0.0660 ng/mL (0.00-0.120) 09/16/17 08:53 Total Protein 7.0 G/DL (6.3-8.2) 09/16/17 11:10 Albumin 3.7 g/dL (3.5-5.0) 09/16/17 11:10 Globulin 3.3 gm/dL (2.2-3.9) 09/16/17 11:10 Albumin/Globulin Ratio 1.1 (1.0-2.1) 09/16/17 11:10 Venous Blood Potassium 4.6 mmol/L (3.6-5.2) 09/16/17 09:00 Influenza Typ A,B (EIA) Negative for flu a/b (NEGATIVE) 09/16/17 08:53
--- NOTE | 2017-09-21 10:10 | CP.PCM.PN ---
Subjective - Date & Time of Evaluation Date of Evaluation: 09/17/17 Time of Evaluation: 10:00 - Subjective Subjective: Patient has a lot of cough and congestion Has no fever. Has labored breathing. Has no chest pain Objective - Vital Signs/Intake and Output Vital Signs (last 24 hours): Temp Pulse Resp BP Pulse Ox 97.8 F 63 18 134/67 94 L 09/21/17 08:26 09/21/17 08:26 09/21/17 08:26 09/21/17 08:26 09/21/17 08:26 - Medications Medications: Current Medications Acetaminophen (Tylenol 325mg Tab) 325 mg PO Q4 PRN PRN Reason: Fever >100.4 F, headache Albuterol/Ipratropium (Duoneb 3 Mg/0.5 Mg (3 Ml) Ud) 3 ml IH Q6H PRN PRN Reason: Shortness of Breath Last Admin: 09/18/17 18:20 Dose: 3 ml Albuterol/Ipratropium (Duoneb 3 Mg/0.5 Mg (3 Ml) Ud) 3 ml INH RQ4 [facility] Last Admin: 09/21/17 08:18 Dose: 3 ml Carvedilol (Coreg) 12.5 mg PO BID [facility] Last Admin: 09/21/17 08:01 Dose: 12.5 mg Digoxin (Lanoxin) 0.125 mg PO DAILY [facility] Last Admin: 09/21/17 08:06 Dose: 0.125 mg Ferrous Sulfate (Feosol) 325 mg PO DAILY [facility] Last Admin: 09/21/17 08:02 Dose: 325 mg Furosemide (Lasix) 40 mg IVP Q12 [facility] Last Admin: 09/21/17 08:06 Dose: 40 mg Guaifenesin/Dextromethorphan (Robitussin Dm) 10 ml PO Q8 PRN PRN Reason: Cough Last Admin: 09/17/17 16:39 Dose: 10 ml Insulin Human Regular (Humulin R) 0 units SC ACHS [facility] PRN Reason: Protocol Last Admin: 09/21/17 06:37 Dose: 2 units Metolazone (Zaroxolyn) 2.5 mg PO DAILY [facility] Last Admin: 09/21/17 08:07 Dose: 2.5 mg Multivitamins/Minerals (Therapeutic-M Tab) 1 tab PO DAILY [facility] Last Admin: 09/21/17 08:07 Dose: 1 tab Pantoprazole Sodium (Protonix Ec Tab) 40 mg PO DAILY [facility] Last Admin: 09/21/17 08:06 Dose: 40 mg Prednisone (Prednisone Tab) 20 mg PO DAILY [facility] Last Admin: 09/21/17 08:06 Dose: 20 mg Rivaroxaban (Xarelto) 15 mg PO DAILY [facility] PRN Reason: Protocol Last Admin: 09/21/17 08:07 Dose: 15 mg Sitagliptin Phosphate (Januvia) 25 mg PO DAILY [facility] Last Admin: 09/21/17 08:02 Dose: 25 mg Valsartan (Diovan) 160 mg PO DAILY [facility] Last Admin: 09/21/17 08:07 Dose: 160 mg - Labs Labs: 09/19/17 10:20 09/19/17 10:20 - Head Exam Head Exam: NORMAL INSPECTION - Eye Exam Eye Exam: Normal appearance - ENT Exam ENT Exam: Mucous Membranes Moist - Respiratory Exam Respiratory Exam: Decreased Breath Sounds, Rales, Rhonchi - Cardiovascular Exam Cardiovascular Exam: Irregular Rhythm - Neurological Exam Neurological Exam: Awake, Oriented x3 Assessment and Plan (1) COPD exacerbation Status: Resolved (2) Chronic congestive heart failure Status: Acute (3) Coronary artery disease Status: Acute (4) Debility Status: Acute (5) HTN (hypertension) Status: Chronic - Assessment and Plan (Free Text) Plan: Con tmeds Cont IV antibiotics Cont steroids and neb tx
[2017-09-21 12:59] VITALS: TEMP 97.4
[2017-09-21 16:18] VITALS: BP 115/66; PULSE 60; RESP 16; O2SAT 97
== END 2017-09-21 17:40 | disposition home health service (06) | DRG 191 ==
LOC: H.ER 07:24 → H.ERHOLD 10:59 → H.TEL 13:11 → OBSVTOIN 09-17 10:06
PROVIDERS: ADMIT Family Medicine; ATTEND Family Medicine
DX: J44.1 Chronic obstructive pulmonary disease with (acute) exacerbation (principal); I50.22 Chronic systolic (congestive) heart failure; E11.51 Type 2 diabetes mellitus with diabetic peripheral angiopathy without gangrene; G20 Parkinson's disease; F03.90 Unspecified dementia, unspecified severity, without behavioral disturbance, psychotic disturbance, mood disturbance, and anxiety; E78.00 Pure hypercholesterolemia, unspecified; E78.5 Hyperlipidemia, unspecified; I11.0 Hypertensive heart disease with heart failure; I25.10 Atherosclerotic heart disease of native coronary artery without angina pectoris; K21.9 Gastro-esophageal reflux disease without esophagitis; Z86.73 Personal history of transient ischemic attack (TIA), and cerebral infarction without residual deficits; Z87.01 Personal history of pneumonia (recurrent); Z90.49 Acquired absence of other specified parts of digestive tract; Z95.0 Presence of cardiac pacemaker; Z95.1 Presence of aortocoronary bypass graft; D64.9 Anemia, unspecified; F41.9 Anxiety disorder, unspecified; F45.9 Somatoform disorder, unspecified; J40 Bronchitis, not specified as acute or chronic; K29.70 Gastritis, unspecified, without bleeding; M19.90 Unspecified osteoarthritis, unspecified site; R19.7 Diarrhea, unspecified; R60.0 Localized edema; I48.2 Chronic atrial fibrillation; Z79.01 Long term (current) use of anticoagulants

== ENCOUNTER 2017-10-27 19:34 | Inpatient (IN) | payer MEDICARE, OTHER ==
[2017-10-27 19:34] VITALS: BMI 20.2
[2017-10-27] MEDS ORDERED: Albuterol-Ipratrop 3 mg / 0.5 (3 ml) UD INH STA ×3 (19:43→19:45)
[2017-10-27] MEDS ORDERED: Nitroglycerin 2% Ointment Foilpak UD TOP STA (19:45)
[2017-10-27] MEDS ORDERED: Nitroglycerin 2% Ointment Foilpak UD TOP ONE (19:53)
[2017-10-27] MEDS ORDERED: Albuterol-Ipratrop 3 mg / 0.5 (3 ml) UD ONE ×2 (19:54→19:55)
[2017-10-27 20:33] LABS: BASO % 0.1 % (0.0-2.0); EOS # 0.1 K/uL (0.0-0.7); EOS % 0.5 % (0.0-4.0); LYMPH # 2.9 K/uL (1.0-4.3); LYMPH % 25.1 % (20.0-40.0); MEAN CELL VOLUME 94.5 fl (81.0-99.0); MEAN CORPUSCULAR HEMOGLOBIN 30.2 pg (27.0-31.0); MEAN PLATELET VOLUME 10.1 fl (7.2-11.7); MONO # 0.9 K/uL (0.0-0.8); MONO % 7.4 % (0.0-10.0); NEUT # 7.7 K/uL (1.8-7.0); NEUT % 66.9 % (50.0-75.0); NRBC % 0.2 % (0.0-0.0); RBC 3.32 Mil/uL (3.80-5.20); WHITE BLOOD COUNT 11.5 K/uL (4.8-10.8)
--- NOTE | 2017-10-27 20:43 | ED PDOC ---
HPI: SOB/CHF/COPD Time Seen by Provider: 10/27/17 19:41 Chief Complaint (Nursing): Respiratory Distress Chief Complaint (Provider): Shortness of Breath History Per: Family (daughter) History/Exam Limitations: clinical condition (patient has dementia) Onset/Duration Of Symptoms: Hrs (x1 hour) Current Symptoms Are (Timing): Still Present Associated Symptoms: denies: Fever, Light-headedness Additional Complaint(s): 82 year old female with a past medical history of hypertension, congestive heart failure, dementia, hypertension, coronary artery disease and dyslipidemia is brought into the ED by her daughter for shortness of breath x1 hour. Patient is a poor historian due to medical condition therefore history is given by the daughter. As per daughter, the patient fell earlier today while attempting to sit in a chair. The daughter states that she was not around when the patient fell but states that she does not think the patient sustained head injury nor did she lose consciousness. As per ALS the patient was given duoneb x2 in the field as well as solumedrol. Upon arrival to the ED patient was noted to be dyspnic and tachypnic. Denies associated fever. - Risk Factors PE Risk Factors: Pos: CHF Past Medical History Reviewed: Historical Data, Nursing Documentation, Vital Signs Vital Signs: Last Vital Signs Temp 97.9 F 10/28/17 01:00 Pulse 65 10/28/17 01:56 Resp 18 10/28/17 01:00 BP 119/56 L 10/28/17 01:00 Pulse Ox 99 10/28/17 01:00 - Medical History PMH: Anemia, Anxiety, Arthritis, Asthma, Atrial Fibrillation, Bronchitis, CAD, Cardia Arrhythmia, CHF, COPD, CVA (recurrent), Dementia, Diabetes (type II), Gastritis, HTN, Hypercholesterolemia, Hyperlipidemia, Parkinson's Disease, Peripheral Edema, Pneumonia, TIA Denies: HIV, Hypothyroidism, Chronic Kidney Disease, Rheumatoid Arthritis - Surgical History Surgical History: Appendectomy, CABG, Carotid Endarterectomy, Cholecystectomy, Pacemaker - Family History Family History: States: Unknown Family Hx - Living Arrangements Living Arrangements: With Family - Social History Current smoker - smoking cessation education provided: No Ex-Smoker (has not smoked in the last 12 months): No Alcohol: None Drugs: Denies - Immunization History Hx Tetanus Toxoid Vaccination: No Hx Influenza Vaccination: No Hx Pneumococcal Vaccination: No - Home Medications Home Medications: Ambulatory Orders Medication Instructions Recorded Albuterol 0.5% [Albuterol 0.5% 5 mg NEB QID 10/28/17 Inhal Juliane (2.5 mg/0.5 ml) UD] Atorvastatin [Lipitor] 40 mg pe PO DAILY 10/28/17 Carvedilol [Coreg] 12.5 mg PO Q12 10/28/17 Clopidogrel [Plavix] 75 mg PO DAILY 10/28/17 Digoxin [Digoxin] 125 mcg PO DAILY 10/28/17 Furosemide [Lasix] 20 mg PO DAILY 10/28/17 Gabapentin [Neurontin] 300 mg PO DAILY 10/28/17 Linagliptin [Tradjenta] 5 mg PO DAILY 10/28/17 Memantine HCl [Namenda Xr] 14 mg PO QPM 10/28/17 Pantoprazole [Protonix EC Tab] 40 mg pe PO DAILY 10/28/17 Rivaroxaban [Xarelto] 15 mg PO DAILY 10/28/17 Spironolactone [Aldactone] 50 mg pe PO DAILY 10/28/17 Valsartan [Valsartan] 160 mg PO DAILY 10/28/17 metOLazone [Zaroxolyn] 2.5 mg PO DAILY 10/28/17 - Allergies Allergies/Adverse Reactions: Allergies Allergy/AdvReac Type Severity Reaction Status Date / Time oxycodone Allergy RASH Verified 06/20/17 22:31 Review of Systems ROS Statement: Except As Marked, All Systems Reviewed And Found Negative Constitutional: Negative for: Fever Cardiovascular: Negative for: Chest Pain Respiratory: Positive for: Shortness of Breath Physical Exam - Reviewed Nursing Documentation Reviewed: Yes Vital Signs Reviewed: Yes - Physical Exam Appears: Positive for: Non-toxic, No Acute Distress Head Exam: Positive for: ATRAUMATIC, NORMAL INSPECTION, NORMOCEPHALIC Skin: Positive for: Normal Color, Warm, Dry. Negative for: Rash Eye Exam: Positive for: Normal appearance, EOMI, PERRL. Negative for: Nystagmus ENT: Positive for: Normal ENT Inspection. Negative for: Sinus Pain/Drainage, Nasal Congestion, Tonsillar Exudate, Tonsillar Swelling Neck: Positive for: Normal, Painless ROM, Supple Cardiovascular/Chest: Positive for: Regular Rate, Rhythm, Chest Non Tender. Negative for: Gallop, Murmur, Tachycardia Respiratory: Positive for: Rales (diffuse rales), Respiratory Distress (mild). Negative for: Normal Breath Sounds (subcostal retractions; tachypnic.), Rhonchi , Stridor, Wheezing Gastrointestinal/Abdominal: Positive for: Normal Exam, Bowel Sounds, Soft. Negative for: Tenderness, Mass, Guarding, Rebound Back: Positive for: Normal Inspection. Negative for: L CVA Tenderness, R CVA Tenderness Extremity: Positive for: Normal ROM. Negative for: Tenderness, Calf Tenderness , Deformity, Swelling Neurologic/Psych: Positive for: Alert, Oriented, Gait - Laboratory Results Result Diagrams: 10/27/17 20:28 10/27/17 20:28 - ECG O2 Sat by Pulse Oximetry: 100 (RA) Pulse Ox Interpretation: Normal - Critical Care Total Time (In Min): 30 Medical Decision Making Medical Decision Makin Initial Impression 82 y/o female presenting with dyspnea in setting of known CHF and COPD Initial Plan: * CT Cervical Spine * CT Head w/o Contrast * EKG * BNP * CMP * Lactic Acid Plasma * Troponin * CBC * CXR * Albuterol 3mL INH * Lasix 40mg IV * Nitro-Bid 2% Oint 1ea TOP * Solumedrol 125mg IVP * Blood Culture * Accucheck * Peak Flow PRE/POST * Reevaluation Documented by Joy Mendez acting as a scribe for Nikhil Camacho MD. All medical record entries made by the Scribe were at my direction and personally dictated by me. I have reviewed the chart and agree that the record accurately reflects my personal performance of the history, physical exam, medical decision making, and the department course for this patient. I have also personally directed, reviewed, and agree with the discharge instructions and disposition. Disposition - Clinical Impression Clinical Impression: Acute respiratory distress, COPD (chronic obstructive pulmonary disease), CHF ( congestive heart failure) - Patient ED Disposition Is Patient to be Admitted: Yes Discussed With : Juan A L Lawrence Counseled Patient/Family Regarding: Studies Performed, Diagnosis - Disposition Disposition Time: 21:00 Condition: FAIR
[2017-10-27 20:59] LABS: ALB/GLOB RATIO 1.1 (1.0-2.1); ALBUMIN 3.7 g/dL (3.5-5.0); ALT/SGPT 69 U/L (9-52); AST/SGOT 70 U/L (14-36); BLOOD UREA NITROGEN 31 mg/dl (7-17); CALCIUM 9.5 mg/dL (8.4-10.2); GFR AFRICAN-AMERICAN > 60; GFR NON-AFRICAN AMERICAN 53
[2017-10-27 21:10] LABS: B-TYPE NATRIURETIC PEPTIDE 4830 pg/ml (0-900)
--- NOTE | 2017-10-27 21:39 | CT ---
EXAM: CT Head Without Intravenous Contrast CLINICAL HISTORY: 82 years old, female; Pain and injury or trauma; Fall; Initial encounter; Concussion / head injury; Consciousness not specified; Headache; Headache not specified; Additional info: Headache. Sent phy. Doc. TECHNIQUE: Axial computed tomography images of the head/brain without intravenous contrast. All CT scans at this facility use one or more dose reduction techniques, viz.: automated exposure control; ma/kV adjustment per patient size (including targeted exams where dose is matched to indication; i.e. head); or iterative reconstruction technique. Coronal and sagittal reformatted images were created and reviewed. COMPARISON: CT - HEAD W/O CONTRAST 2016-09-12 11:50 FINDINGS: Brain: Atrophy. Extensive bilateral white matter changes. This is nonspecific and may include microangiopathic disease, small lacunae of indeterminate chronicity, chronic infarcts and/or encephalomalacia. Vascular calcification. No hemorrhage. No edema. Ventricles: No hydrocephalus. Bones: Skull is intact. Sinuses: Partial visualization of moderate paranasal sinus disease. Mastoid air cells: No mastoid effusion. IMPRESSION: No CT evidence of acute intracranial abnormality. Significant chronic changes as above. Partial visualization of moderate paranasal sinus disease.
--- NOTE | 2017-10-27 21:44 | CT ---
EXAM: CT Cervical Spine Without Intravenous Contrast CLINICAL HISTORY: 82 years old, female; Injury or trauma; Fall; Initial encounter; Concussion /head injury; Additional info: Neck injury TECHNIQUE: Axial computed tomography images of the cervical spine without intravenous contrast. All CT scans at this facility use one or more dose reduction techniques, viz.: automated exposure control; ma/kV adjustment per patient size (including targeted exams where dose is matched to indication; i.e. head); or iterative reconstruction technique. Coronal and sagittal reformatted images were created and reviewed. COMPARISON: CT - CERVICAL SPINE W/O CONTRAST 2015-11-28 12:45 FINDINGS: Vertebrae/discs: No acute fracture. Multilevel degenerative changes. Chronic vertebral body height loss. No severe spinal canal stenosis. Soft tissues: Atherosclerosis. Carotid calcification. Partial visualization of moderate paranasal sinus disease. Lung apices: Partial visualization of right pleural effusion. IMPRESSION: Negative for acute fracture. Partial visualization of right pleural effusion. Additional details/findings as above.
[2017-10-28] MEDS ORDERED: Albuterol-Ipratrop 3 mg / 0.5 (3 ml) UD INH PRN (00:52)
--- NOTE | 2017-10-28 08:39 | RAD ---
HISTORY: chest pain COMPARISON: Portable chest 09/16/2017. FINDINGS: Pacemaker grossly unchanged in appearance as well as prosthetic cardiac valve. Sternotomy wires again noted. LUNGS: Improvement in left basilar atelectasis noted with limited residual noted. No interval change in the right, again appearing mild. PLEURA: Limited bilateral pleural effusions are unchanged. No pneumothorax bilaterally. CARDIOVASCULAR: Stable cardiomegaly with pulmonary venous congestion pattern not significantly changed in the interval. OSSEOUS STRUCTURES: No significant abnormalities. VISUALIZED UPPER ABDOMEN: Normal. OTHER FINDINGS: None. IMPRESSION: Stable pulmonary vascular congestion. Limited bilateral pleural effusions and bibasilar atelectasis again evident.
[2017-10-28] MEDS ORDERED: methylPREDNISolone 40 MG in Sodium Chloride 0.9% 50 ML IV SCH (09:00)
[2017-10-28] MEDS: metOLazone 2.5 MG TAB PO SCH (09:40)
[2017-10-28] MEDS: Potassium Chloride 20 mEq ER Tab PO SCH ×2 (09:41→21:11)
[2017-10-28] MEDS: Digoxin 125 mcg (0.125 mg) Tab PO SCH (09:46)
[2017-10-28] MEDS: Pantoprazole 40 mg EC Tab PO SCH (09:47)
[2017-10-28] MEDS: MethylPREDNISolone 40 mg Vial IVP SCH ×2 (09:50→21:15)
--- NOTE | 2017-10-28 12:39 | CP.PCM.HP ---
History of Present Illness - History of Present Illness History of Present Illness: This is an 82 y/o female admitted for increasing SOB and cough for the past few days. She has a hx of recurrent COPD exacerbation and CHF. She had multiple admissions to the hospital due to above . She has no fever this time. 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 Present on Admission - Present on Admission Any Indicators Present on Admission: No History of DVT/PE: No History of Uncontrolled Diabetes: No Urinary Catheter: No Decubitus Ulcer Present: No Review of Systems - Respiratory Respiratory: Cough, Dyspnea on Exertion, Chest Congestion Past Patient History - Infectious Disease Hx of Infectious Diseases: None - Tetanus Immunizations Tetanus Immunization: Unknown - Past Medical History & Family History Past Medical History?: Yes - Past Social History Alcohol: None Drugs: Denies - CARDIAC Hx Atrial Fibrillation: Yes Hx Cardia Arrhythmia: Yes Hx Congestive Heart Failure: Yes Hx Hypercholesterolemia: Yes Hx Hypertension: Yes Hx Pacemaker: Yes Hx Peripheral Edema: Yes - PULMONARY Hx Asthma: Yes Hx Bronchitis: Yes Hx Chronic Obstructive Pulmonary Disease (COPD): Yes Hx Pneumonia: Yes - NEUROLOGICAL Hx Dementia: Yes Hx Parkinson's Disease: Yes Hx Transient Ischemic Attacks (TIA): Yes - HEENT Hx HEENT Problems: No - RENAL Hx Chronic Kidney Disease: No - ENDOCRINE/METABOLIC Hx Hypothyroidism: No - HEMATOLOGICAL/ONCOLOGICAL Hx Anemia: Yes Hx Human Immunodeficiency Virus (HIV): No - INTEGUMENTARY Hx Dermatological Problems: No - MUSCULOSKELETAL/RHEUMATOLOGICAL Hx Arthritis: Yes Hx Rheumatoid Arthritis: No - GASTROINTESTINAL Hx Gastritis: Yes - GENITOURINARY/GYNECOLOGICAL Hx Genitourinary Disorders: No - PSYCHIATRIC Hx Anxiety: Yes - SURGICAL HISTORY Hx Appendectomy: Yes Hx Carotid Endarterectomy: Yes Hx Cholecystectomy: Yes Hx Coronary Artery Bypass Graft: Yes - ANESTHESIA Hx Anesthesia: Yes Hx Anesthesia Reactions: No Hx Malignant Hyperthermia: No Meds Allergies/Adverse Reactions: Allergies Allergy/AdvReac Type Severity Reaction Status Date / Time oxycodone Allergy RASH Verified 06/20/17 22:31 Physical Exam - Head Exam Head Exam: NORMAL INSPECTION - Eye Exam Eye Exam: Normal appearance - Respiratory Exam Respiratory Exam: Decreased Breath Sounds, Rales, Wheezes - Cardiovascular Exam Cardiovascular Exam: REGULAR RHYTHM - Neurological Exam Neurological exam: CN II-XII Intact - Psychiatric Exam Psychiatric exam: Normal Mood Results - Vital Signs Recent Vital Signs: Last Vital Signs Temp 97.9 F 10/28/17 08:31 Pulse 91 H 10/28/17 09:44 Resp 18 10/28/17 08:31 BP 114/63 10/28/17 09:45 Pulse Ox 99 10/28/17 08:31 - Labs Result Diagrams: 10/27/17 20:28 10/27/17 20:28 Labs: Laboratory Results - last 24 hr 10/27/17 10/27/17 10/27/17 20:28 20:28 20:28 WBC 11.5 H RBC 3.32 L Hgb 10.0 L Hct 31.4 L MCV 94.5 MCH 30.2 MCHC 32.0 L RDW 17.0 H Plt Count 269 MPV 10.1 Neut % (Auto) 66.9 Lymph % (Auto) 25.1 Andrews % (Auto) 7.4 Eos % (Auto) 0.5 Baso % (Auto) 0.1 Neut # (Auto) 7.7 H Lymph # (Auto) 2.9 Andrews # (Auto) 0.9 H Eos # (Auto) 0.1 Baso # (Auto) 0.0 Sodium 141 Potassium 4.6 Chloride 103 Carbon Dioxide 24 Anion Gap 19 BUN 31 H Creatinine 1.0 Est GFR ( Amer) > 60 Est GFR (Non-Af Amer) 53 POC Glucose (mg/dL) Random Glucose 128 H Lactic Acid 1.1 Calcium 9.5 Total Bilirubin 0.5 AST 70 H D ALT 69 H D Alkaline Phosphatase 95 Troponin I 0.0690 NT-Pro-B Natriuret Pep 4830 H Total Protein 7.1 Albumin 3.7 Globulin 3.3 Albumin/Globulin Ratio 1.1 10/27/17 10/28/17 10/28/17 20:33 05:29 11:07 WBC RBC Hgb Hct MCV MCH MCHC RDW Plt Count MPV Neut % (Auto) Lymph % (Auto) Andrews % (Auto) Eos % (Auto) Baso % (Auto) Neut # (Auto) Lymph # (Auto) Andrews # (Auto) Eos # (Auto) Baso # (Auto) Sodium Potassium Chloride Carbon Dioxide Anion Gap BUN Creatinine Est GFR ( Amer) Est GFR (Non-Af Amer) POC Glucose (mg/dL) 138 H 181 H 192 H Random Glucose Lactic Acid Calcium Total Bilirubin AST ALT Alkaline Phosphatase Troponin I NT-Pro-B Natriuret Pep Total Protein Albumin Globulin Albumin/Globulin Ratio Assessment & Plan (1) CHF (congestive heart failure) Status: Chronic Priority: High (2) COPD (chronic obstructive pulmonary disease) Status: Chronic Priority: High (3) Asthma exacerbation Status: Acute (4) Coronary artery disease (CAD) excluded Status: Acute - Assessment and Plan (Free Text) Plan: Cont meds Cont tx Cont restricted fluids start IV Lasix and potassium check cardiac enzymes.
--- NOTE | 2017-10-28 14:52 | CARD ---
APPROVED REPORT EKG Measurement Heart [id number] <Conclusion> Atrial-sensed ventricular-paced rhythm Abnormal ECG
[2017-10-29] MEDS: Pantoprazole 40 mg EC Tab PO SCH (08:52)
[2017-10-29] MEDS: metOLazone 2.5 MG TAB PO SCH (08:52)
[2017-10-29] MEDS: Digoxin 125 mcg (0.125 mg) Tab PO SCH (08:52)
[2017-10-29] MEDS: Potassium Chloride 20 mEq ER Tab PO SCH (08:52)
[2017-10-29 08:53] VITALS: PULSE 60
[2017-10-29] MEDS: MethylPREDNISolone 40 mg Vial IVP SCH (08:56)
--- NOTE | 2017-10-29 11:15 | CP.PCM.DIS ---
Provider - Provider Date of Admission: 10/27/17 21:20 Attending physician: Juan A Lawrence MD Time Spent in preparation of Discharge (in minutes): 30 Diagnosis - Discharge Diagnosis (1) CHF (congestive heart failure) Status: Chronic Priority: High (2) COPD (chronic obstructive pulmonary disease) Status: Chronic Priority: High (3) Asthma exacerbation Status: Acute (4) Coronary artery disease (CAD) excluded Status: Acute Hospital Course - Lab Results Lab Results: Micro Results 10/27/17 20:10 Blood-Venous Blood Culture - Preliminary NO GROWTH AFTER 24 HOURS 10/27/17 20:24 Blood-Venous Blood Culture - Preliminary NO GROWTH AFTER 24 HOURS Most Recent Lab Values WBC 11.5 K/uL (4.8-10.8) H 10/27/17 20: RBC 3.32 Mil/uL (3.80-5.20) L 10/27/17 20:28 Hgb 10.0 g/dL (12.0-16.0) L 10/27/17 20: Hct 31.4 % (34.0-47.0) L 10/27/17 20:28 MCV 94.5 fl (81.0-99.0) 10/27/17 20: MCH 30.2 pg (27.0-31.0) 10/27/17 20: MCHC 32.0 g/dL (33.0-37.0) L 10/27/17 20:28 RDW 17.0 % (11.5-14.5) H 10/27/17 20:28 Plt Count 269 K/uL (130-400) 10/27/17 20: MPV 10.1 fl (7.2-11.7) 10/27/17 20:28 Neut % (Auto) 66.9 % (50.0-75.0) 10/27/17 20: Lymph % (Auto) 25.1 % (20.0-40.0) 10/27/17 20: [place] % (Auto) 7.4 % (0.0-10.0) 10/27/17 20: Eos % (Auto) 0.5 % (0.0-4.0) 10/27/17: Baso % (Auto) 0.1 % (0.0-2.0) 10/27/17 20:28 Neut # (Auto) 7.7 K/uL (1.8-7.0) H 10/27/17 20:28 Lymph # (Auto) 2.9 K/uL (1.0-4.3) 10/27/17 20:28 [place] # (Auto) 0.9 K/uL (0.0-0.8) H 10/27/17 20:28 Eos # (Auto) 0.1 K/uL (0.0-0.7) 10/27/17 20:28 Baso # (Auto) 0.0 K/uL (0.0-0.2) 10/27/17 20:28 Sodium 141 mmol/l (132-148) 10/27/17 20:28 Potassium 4.6 MMOL/L (3.6-5.0) 10/27/17 20:28 Chloride 103 mmol/L (98-107) 10/27/17 20:28 Carbon Dioxide 24 mmol/L (22-30) 10/27/17 20:28 Anion Gap 19 (10-20) 10/27/17 20:28 BUN 31 mg/dl (7-17) H 10/27/17 20:28 Creatinine 1.0 mg/dl (0.7-1.2) 10/27/17 20:28 Est GFR ( Amer) > 60 10/27/17 20:28 Est GFR (Non-Af Amer) 53 10/27/17 20:28 POC Glucose (mg/dL) 195 mg/dL (65-110) H 10/29/17 10:29 Random Glucose 128 mg/dL (65-105) H 10/27/17 20:28 Lactic Acid 1.1 MMOL/L (0.7-2.1) 10/27/17 20:28 Calcium 9.5 mg/dL (8.4-10.2) 10/27/17 20:28 Total Bilirubin 0.5 mg/dl (0.2-1.3) 10/27/17 20:28 AST 70 U/L (14-36) H D 10/27/17 20:28 ALT 69 U/L (9-52) H D 10/27/17 20:28 Alkaline Phosphatase 95 U/L (38-126) 10/27/17 20:28 Troponin I 0.0690 ng/mL (0.00-0.120) 10/27/17 20:28 NT-Pro-B Natriuret Pep 4830 pg/ml (0-900) H 10/27/17 20:28 Total Protein 7.1 G/DL (6.3-8.2) 10/27/17 20:28 Albumin 3.7 g/dL (3.5-5.0) 10/27/17 20:28 Globulin 3.3 gm/dL (2.2-3.9) 10/27/17 20:28 Albumin/Globulin Ratio 1.1 (1.0-2.1) 10/27/17 20:28 - Hospital Course Hospital Course: This is an 82 y/o Female with hx of multiple admissions for CHF an COPD was admitted for exacerbation of CHF. She has an acute CHF systolic on chronic CHF. She had no chest pain and cardiac enzymes were negative She was treated with Lasix and duoneb and responded quickly very well. She was discharged in stable condition on the 2nd day of hospitalization. Discharge Exam - Head Exam Head Exam: NORMAL INSPECTION - Eye Exam Eye Exam: Normal appearance - Respiratory Exam Respiratory Exam: Decreased Breath Sounds - Cardiovascular Exam Cardiovascular Exam: REGULAR RHYTHM - GI/Abdominal Exam GI & Abdominal Exam: Normal Bowel Sounds - Neurological Exam Neurological exam: Alert, CN II-XII Intact, Oriented x3, Reflexes Normal - Psychiatric Exam Psychiatric exam: Normal Mood Discharge Plan - Follow Up Plan Condition: FAIR Disposition: HOME/ ROUTINE Additional Instructions: Rx given to patient advised follow up in 1 week to my office,
--- NOTE | 2017-10-29 14:52 | PQF GENQUE ---
Dr. Lawrence, 2 queries: 1. Please clarify type of asthma: if known Mild intermittent Mild persistent Moderate persistent Severe persistent Other (please specify) Clinically unable to determine 2. Acuity of COPD: in exacerbation versus stable H and P : Respiratory Exam: Decreased Breath Sounds, Rales, Wheezes Assessment :(1) CHF (congestive heart failure) Status: Chronic (2) COPD: Chronic (3) Asthma exacerbation : Acute (4) Coronary artery disease (CAD) excluded Status: Acute Duoneb stat x 3 in ER-> Q4 PRN, Solumedrol 40 mg IVP Q12 This form is a permanent part of the medical record Clarification of your documentation is requested to better reflect the severity of illness and intensity of treatment of your patient. Indicators present [] Specify: [] [] Specify: [] [] Specify: [] [] Specify: [] Location in the medical record that reflects the above clinical findings: [] Treatment Provided: [] PHYSICIAN'S RESPONSE Based on your medical judgment of the clinical indicators outlined above please clarify the following: [] Practitioner response [] If unable to determine, please check the box, sign and date. Present On Admission (POA) Indicator: [] Present at the time of admission [] Not present at the time of admission [] Clinically Undetermined In responding to this query, please exercise your independent professional judgment. The fact that a question is asked does not imply that any particular answer is desired or expected. Thank you for your clarification on this documentation. If you have any questions please call. * Thank you, Naty Kemp RN ext. #[phone] MTDD
[2017-10-29 15:32] VITALS: BP 115/68; PULSE 66; RESP 20; TEMP 97.6; O2SAT 96
== END 2017-10-29 18:05 | disposition home or self-care (01) | DRG 292 ==
LOC: H.ER 19:34 → H.ERHOLD 21:20 → H.TEL 22:24
PROVIDERS: ADMIT Family Medicine; ATTEND Family Medicine
DX: I11.0 Hypertensive heart disease with heart failure (principal); J44.1 Chronic obstructive pulmonary disease with (acute) exacerbation; G20 Parkinson's disease; I48.91 Unspecified atrial fibrillation; R06.03 Acute respiratory distress; E11.9 Type 2 diabetes mellitus without complications; D64.9 Anemia, unspecified; E78.00 Pure hypercholesterolemia, unspecified; I50.23 Acute on chronic systolic (congestive) heart failure; W19.XXXA Unspecified fall, initial encounter; F03.90 Unspecified dementia, unspecified severity, without behavioral disturbance, psychotic disturbance, mood disturbance, and anxiety; E78.5 Hyperlipidemia, unspecified; I25.10 Atherosclerotic heart disease of native coronary artery without angina pectoris; Y93.9 Activity, unspecified; Y92.9 Unspecified place or not applicable; Z79.01 Long term (current) use of anticoagulants; Z79.02 Long term (current) use of antithrombotics/antiplatelets; Z86.73 Personal history of transient ischemic attack (TIA), and cerebral infarction without residual deficits; Z87.01 Personal history of pneumonia (recurrent); Z90.49 Acquired absence of other specified parts of digestive tract; Z95.0 Presence of cardiac pacemaker; Z95.1 Presence of aortocoronary bypass graft; F41.9 Anxiety disorder, unspecified; K29.70 Gastritis, unspecified, without bleeding; M19.90 Unspecified osteoarthritis, unspecified site; Z79.84 Long term (current) use of oral hypoglycemic drugs; Z79.899 Other long term (current) drug therapy

== ENCOUNTER 2017-11-23 05:16 | Inpatient (IN) | payer MEDICARE, OTHER ==
[2017-11-23 05:16] VITALS: PULSE 60; BMI 20.2
[2017-11-23] MEDS ORDERED: Albuterol-Ipratrop 3 mg / 0.5 (3 ml) UD INH STA ×3 (06:16→06:18)
--- NOTE | 2017-11-23 07:04 | ED PDOC ---
HPI: SOB/CHF/COPD Time Seen by Provider: 11/23/17 05:39 Chief Complaint (Nursing): Weakness/Neurological Deficit Chief Complaint (Provider): Shortness of Breath History Per: Patient History/Exam Limitations: clinical condition (Patient is too short of breath to speak. Daughter is historian.) Onset/Duration Of Symptoms: Days (x2) Current Symptoms Are (Timing): Still Present Associated Symptoms: Other (Weakness) Additional Complaint(s): 82 year old female presents to ED with complaints of SOB x2 days and has a past medical history of COPD, CHF, AFIB, PNA, CAD, HTN, and dyslipidemia. Patient states she was diagnosed with a URI 2 days ago by PCP Dr. Lawrence and was prescribed Zithromax. Patient's daughter notes onset of diarrhea after starting medicine. (+) worsening SOB and weakness. Daughter states that the patient is not as communicative as usual. PCP: Juan A Lawrence Past Medical History Reviewed: Historical Data, Nursing Documentation, Vital Signs Vital Signs: Last Vital Signs Temp 98.5 F 11/23/17 19:25 Pulse 59 L 11/23/17 22:13 Resp 20 11/23/17 19:25 BP 100/56 L 11/23/17 22:13 Pulse Ox 99 11/23/17 19:25 - Medical History PMH: Anemia, Anxiety, Arthritis, Asthma, Atrial Fibrillation, Bronchitis, CAD, Cardia Arrhythmia, CHF, COPD, CVA (recurrent), Dementia, Diabetes (type II), Gastritis, HTN, Hypercholesterolemia, Hyperlipidemia, Parkinson's Disease, Peripheral Edema, Pneumonia, TIA Denies: HIV, Hypothyroidism, Chronic Kidney Disease, Rheumatoid Arthritis - Surgical History Surgical History: Appendectomy, CABG, Carotid Endarterectomy, Cholecystectomy, Pacemaker - Family History Family History: States: Unknown Family Hx - Living Arrangements Living Arrangements: With Family - Social History Current smoker - smoking cessation education provided: No Ex-Smoker (has not smoked in the last 12 months): No Alcohol: None Drugs: Denies - Immunization History Hx Tetanus Toxoid Vaccination: No Hx Influenza Vaccination: No Hx Pneumococcal Vaccination: No - Home Medications Home Medications: Ambulatory Orders Medication Instructions Recorded Albuterol 0.5% [Albuterol 0.5% 5 mg NEB QID 10/28/17 Inhal Juliane (2.5 mg/0.5 ml) UD] Atorvastatin [Lipitor] 40 mg pe PO DAILY 10/28/17 Carvedilol [Coreg] 12.5 mg PO Q12 10/28/17 Clopidogrel [Plavix] 75 mg PO DAILY 10/28/17 Furosemide [Lasix] 20 mg PO DAILY 10/28/17 Gabapentin [Neurontin] 300 mg PO DAILY 10/28/17 Linagliptin [Tradjenta] 5 mg PO DAILY 10/28/17 Memantine HCl [Namenda Xr] 14 mg PO QPM 10/28/17 Pantoprazole [Protonix EC Tab] 40 mg pe PO DAILY 10/28/17 Rivaroxaban [Xarelto] 15 mg PO DAILY 10/28/17 Spironolactone [Aldactone] 50 mg pe PO DAILY 10/28/17 Valsartan 160 mg PO DAILY 10/28/17 metOLazone [Zaroxolyn] 2.5 mg PO DAILY 10/28/17 Methylprednisolone [Medrol Dose 4 mg PO DAILY #21 mg 10/29/17 Pack (21 tabs)] Azithromycin [Zithromax] 500 mg PO DAILY 11/23/17 Colchicine [Colcrys] 0.6 mg PO BID 11/23/17 Icosapent Ethyl [Vascepa] 1 gm PO DAILY 11/23/17 - Allergies Allergies/Adverse Reactions: Allergies Allergy/AdvReac Type Severity Reaction Status Date / Time oxycodone Allergy RASH Verified 06/20/17 22:31 Curb-65 Severity Score - CURB-65 Severity Score Confusion: No Respiratory Rate greater than/equal to 30: No Systolic BP <90 or Diastolic BP less than/equal 60mmHg: No Age >64: Yes Curb-65 Score: 1 Percentage 30-day mortality: 2.7% Wells Criteria for PE - Wells Criteria for Pulmonary Embolism Heart Rate >100: No Previous, objectively diagnosed PE or DVT: No Hemoptysis: No Malignancy w/treatment within 6 months, or palliative: No Total Score: 0 Review of Systems ROS Statement: Except As Marked, All Systems Reviewed And Found Negative Respiratory: Positive for: Shortness of Breath Gastrointestinal: Positive for: Diarrhea Physical Exam - Reviewed Nursing Documentation Reviewed: Yes Vital Signs Reviewed: Yes - Physical Exam Appears: Positive for: Non-toxic Skin: Positive for: Normal Color, Warm, Dry Eye Exam: Positive for: Normal appearance Cardiovascular/Chest: Positive for: Regular Rate, Rhythm. Negative for: Bradycardia Respiratory: Positive for: Crackles (bilateral crackles in bases), Wheezing ( bilateral expiratory wheezing), Respiratory Distress (moderate) Gastrointestinal/Abdominal: Positive for: Soft. Negative for: Tenderness Extremity: Positive for: Swelling (2+ edema to bilateral lower extremities) Neurologic/Psych: Positive for: Alert, Oriented, Aphasia (patient is not able to speak due to SOB) - Laboratory Results Result Diagrams: 11/23/17 07:06 11/23/17 07:06 - ECG O2 Sat by Pulse Oximetry: 97 (RA) Pulse Ox Interpretation: Normal Medical Decision Making Medical Decision Makin Initial impression: SOB in setting of recent URI and known COPD, CHF, AFIB, and CAD Initial plan: * EKG * Labs * CXR * Duonebs 3mL INH x3 * Solumedrol 125mg IVP * BCx * Influenza A B * UA * Peak flow pre/post Tx x3 * Re-eval 0700 Patient will be signed out to Dr. Ewing pending ED work up. Scribe Attestation: Documented by Daksha Richard acting as a scribe for Nikhil Camacho MD. Scribe Attestation: All medical record entries made by the Scribe were at my direction and personally dictated by me. I have reviewed the chart and agree that the record accurately reflects my personal performance of the history, physical exam, medical decision making, and the department course for this patient. I have also personally directed, reviewed, and agree with the discharge instructions and disposition. Disposition - Clinical Impression Clinical Impression: COPD exacerbation - Patient ED Disposition Is Patient to be Admitted: Transfer of Care - Disposition Disposition Time: 07:00 Condition: GUARDED Patient Signed Over To: Maria Eugenia Ewing
[2017-11-23] MEDS ORDERED: Albuterol-Ipratrop 3 mg / 0.5 (3 ml) UD ONE (07:05)
[2017-11-23 07:14] LABS: BASO % 0.1 % (0.0-2.0); EOS # 0.1 K/uL (0.0-0.7); EOS % 1.4 % (0.0-4.0); HEMOGLOBIN 10.2 g/dL (12.0-16.0); LYMPH # 2.3 K/uL (1.0-4.3); LYMPH % 29.7 % (20.0-40.0); MEAN CELL VOLUME 91.3 fl (81.0-99.0); MEAN CORPUSCULAR HEMOGLOBIN 29.2 pg (27.0-31.0); MONO # 0.6 K/uL (0.0-0.8); MONO % 8.2 % (0.0-10.0); NEUT # 4.7 K/uL (1.8-7.0); NEUT % 60.6 % (50.0-75.0); RBC 3.5 Mil/uL (3.80-5.20); RED CELL DISTRIBUTION WIDTH 16.2 % (11.5-14.5); WHITE BLOOD COUNT 7.8 K/uL (4.8-10.8)
--- NOTE | 2017-11-23 07:40 | ED PDOC ---
- Laboratory Results Result Diagrams: 11/23/17 07:06 11/23/17 07:06 - ECG O2 Sat by Pulse Oximetry: 97 (RA) - Progress Re-evaluation Time: 08:21 Condition: Improving,but remains with symptoms Medical Decision Making Medical Decision Makin.00a - patient from Dr. Camacho. Pending labs and x-rays. h/o CHF, COPD, CAD here because of shortness of breath. Per Dr. Camacho, wheezing. Given steroids and nebs. 8.15a - Labs okay. Chest x-ray not markedly different that previous. EKG shows paced rhythm. Still wheezing. SBP without change from arrival. Case d/w Dr. Lawrence. Will admit. Family made aware and agrees. Disposition - Clinical Impression Clinical Impression: COPD exacerbation - POA Present On Arrival: None - Disposition Referrals: Juan A Lawrence MD [Primary Care Provider] - Disposition: Admitted as In-Patient Disposition Time: 08:24 Condition: GUARDED Forms: [employer] ([place])
[2017-11-23 07:43] LABS: ALB/GLOB RATIO 1.2 (1.0-2.1); ALBUMIN 3.7 g/dL (3.5-5.0); CALCIUM 9.5 mg/dL (8.4-10.2)
[2017-11-23 07:44] LABS: TROPONIN I 0.024 ng/mL (0.00-0.120)
[2017-11-23 09:04] LABS: SQUAMOUS EPITHIAL < 1 /hpf (0-5); URINE BACTERIA OCC (<OCC); URINE BILIRUBIN NEGATIVE (NEGATIVE); URINE BLOOD NEGATIVE (NEGATIVE); URINE CLARITY SLIGHTY-CLOUDY (Clear); URINE COLOR YELLOW (YELLOW); URINE GLUCOSE (UA) NEG (Normal); URINE LEUKOCYTE ESTERASE LARGE Leu/uL (Negative); URINE PROTEIN NEGATIVE (NEGATIVE); URINE UROBILINOGEN 0.2-1.0 mg/dL (0.2-1.0)
--- NOTE | 2017-11-23 09:54 | CARD ---
APPROVED REPORT EKG Measurement Heart [id number] ID [id number] <Conclusion> AV dual-paced rhythm Abnormal ECG
--- NOTE | 2017-11-23 10:01 | RAD ---
HISTORY: URI COMPARISON: Comparison made with prior chest radiograph 12/25/2017. FINDINGS: LUNGS: Patchy bilateral lower lobe opacities right greater than left may represent infiltrate and/or atelectasis Suspect small bilateral effusions. Interval improvement vascular congestive changes seen on prior study PLEURA: No significant pleural effusion identified, no pneumothorax apparent. CARDIOVASCULAR: Sternotomy wires, CABG clips and prostatic valve as well as bipolar pacemaker again noted. Cardiac silhouette unchanged OSSEOUS STRUCTURES: No significant abnormalities. VISUALIZED UPPER ABDOMEN: Normal. OTHER FINDINGS: None. IMPRESSION: Patchy bilateral lower lobe opacities right greater than left may represent infiltrate and/or atelectasis Suspect small bilateral effusions. Interval improvement vascular congestive changes seen on prior study
[2017-11-23] MEDS ORDERED: Albuterol-Ipratrop 3 mg / 0.5 (3 ml) UD INH PRN (11:37)
--- NOTE | 2017-11-23 11:47 | CP.PCM.HP ---
<HectorOtis - Last Filed: 11/23/17 13:00> History of Present Illness - History of Present Illness History of Present Illness: This is an 82 y/o female admitted for increasing SOB and cough with sputum production for the past few days. She has a hx of recurrent COPD exacerbation and CHF exacerbations. She had multiple admissions to the hospital due to above. Patient was admitted 1 and 2 months ago to [facility] with similar complains. Lives alone. Possible noncompliant with home therapy. She has no fever this time. proBNP on previous admission was [phone]. Medical Hx CVA, multiple times COPD CHF HTN DM 2 OA on pacemaker Takes plavix and xarelto Present on Admission - Present on Admission Any Indicators Present on Admission: Yes History of Uncontrolled Diabetes: Yes Review of Systems - Review of Systems All systems: reviewed and no additional remarkable complaints except - Constitutional Constitutional: Weakness - Respiratory Respiratory: Cough, Dyspnea, Pain on Inspiration, Chest Congestion, Excessive Mucous Production, Change in Mucous Color, Pain with Coughing Past Patient History - Infectious Disease Hx of Infectious Diseases: None - Tetanus Immunizations Tetanus Immunization: Unknown - Past Medical History & Family History Past Medical History?: Yes - Past Social History Alcohol: None Drugs: Denies - CARDIAC Hx Cardiac Disorders: Yes - PULMONARY Hx Respiratory Disorders: Yes - NEUROLOGICAL Hx Neurological Disorder: Yes - HEENT Hx HEENT Problems: No - RENAL Hx Chronic Kidney Disease: No - ENDOCRINE/METABOLIC Hx Hypothyroidism: No - HEMATOLOGICAL/ONCOLOGICAL Hx Anemia: Yes Hx Human Immunodeficiency Virus (HIV): No - INTEGUMENTARY Hx Dermatological Problems: No - MUSCULOSKELETAL/RHEUMATOLOGICAL Hx Arthritis: Yes Hx Rheumatoid Arthritis: No - GASTROINTESTINAL Hx Gastritis: Yes - GENITOURINARY/GYNECOLOGICAL Hx Genitourinary Disorders: No - PSYCHIATRIC Hx Anxiety: Yes - SURGICAL HISTORY Hx Appendectomy: Yes Hx Carotid Endarterectomy: Yes Hx Cholecystectomy: Yes Hx Coronary Artery Bypass Graft: Yes - ANESTHESIA Hx Anesthesia: Yes Hx Anesthesia Reactions: No Hx Malignant Hyperthermia: No Meds Allergies/Adverse Reactions: Allergies Allergy/AdvReac Type Severity Reaction Status Date / Time oxycodone Allergy RASH Verified 06/20/17 22:31 Physical Exam - Constitutional Appears: Non-toxic, In Acute Distress (SOB), Chronically Ill - Eye Exam Eye Exam: EOMI, PERRL - ENT Exam ENT Exam: Mucous Membranes Moist - Respiratory Exam Respiratory Exam: Rales, Rhonchi, Wheezes - Cardiovascular Exam Cardiovascular Exam: REGULAR RHYTHM, +S1, +S2. absent: Gallop - GI/Abdominal Exam GI & Abdominal Exam: Normal Bowel Sounds, Soft. absent: Distended, Firm, Guarding, Rebound, Rigid, Tenderness - Extremities Exam Extremities exam: Positive for: normal capillary refill, pedal edema (+1 B/L). Negative for: calf tenderness - Neurological Exam Neurological exam: Alert, Oriented x3 - Skin Skin Exam: Normal Color, Warm Results - Vital Signs Recent Vital Signs: Last Vital Signs Temp 97.5 F L 11/23/17 10:31 Pulse 64 11/23/17 10:31 Resp 20 11/23/17 10:31 BP 120/67 11/23/17 10:31 Pulse Ox 95 11/23/17 10:31 - Labs Result Diagrams: 11/23/17 07:06 11/23/17 07:06 Labs: Laboratory Results - last 24 hr 11/23/17 11/23/17 11/23/17 07:06 07:06 07:06 WBC 7.8 RBC 3.50 L Hgb 10.2 L Hct 32.0 L MCV 91.3 D MCH 29.2 MCHC 32.0 L RDW 16.2 H Plt Count 192 MPV 11.0 Neut % (Auto) 60.6 Lymph % (Auto) 29.7 [place] % (Auto) 8.2 Eos % (Auto) 1.4 Baso % (Auto) 0.1 Neut # (Auto) 4.7 Lymph # (Auto) 2.3 [place] # (Auto) 0.6 Eos # (Auto) 0.1 Baso # (Auto) 0.0 Sodium 142 Potassium 4.0 Chloride 101 Carbon Dioxide 30 Anion Gap 15 BUN 43 H Creatinine 1.1 Est GFR ( Amer) 57 Est GFR (Non-Af Amer) 47 Random Glucose 102 Lactic Acid 1.4 Calcium 9.5 Total Bilirubin 0.5 AST 52 H D ALT 58 H Alkaline Phosphatase 96 Troponin I 0.0240 Total Protein 6.8 Albumin 3.7 Globulin 3.1 Albumin/Globulin Ratio 1.2 Urine Color Urine Clarity Urine pH Ur Specific [place] Urine Protein Urine Glucose (UA) Urine Ketones Urine Blood Urine Nitrate Urine Bilirubin Urine Urobilinogen Ur Leukocyte Esterase Urine RBC (Auto) Urine Microscopic WBC Ur Squamous Epith Cells Urine Bacteria Hyaline Casts Influenza Typ A,B (EIA) 03/23/18 03/23/18 07:06 07:37 WBC RBC Hgb Hct MCV MCH MCHC RDW Plt Count MPV Neut % (Auto) Lymph % (Auto) [place] % (Auto) Eos % (Auto) Baso % (Auto) Neut # (Auto) Lymph # (Auto) [place] # (Auto) Eos # (Auto) Baso # (Auto) Sodium Potassium Chloride Carbon Dioxide Anion Gap BUN Creatinine Est GFR ( Amer) Est GFR (Non-Af Amer) Random Glucose Lactic Acid Calcium Total Bilirubin AST ALT Alkaline Phosphatase Troponin I Total Protein Albumin Globulin Albumin/Globulin Ratio Urine Color Yellow Urine Clarity Slighty-cloudy Urine pH 6.0 Ur Specific [place] 1.010 Urine Protein Negative Urine Glucose (UA) Neg Urine Ketones Negative Urine Blood Negative Urine Nitrate Negative Urine Bilirubin Negative Urine Urobilinogen 0.2-1.0 Ur Leukocyte Esterase Large Urine RBC (Auto) 3 Urine Microscopic WBC 63 H Ur Squamous Epith Cells < 1 Urine Bacteria Occ H Hyaline Casts 3-5 H Influenza Typ A,B (EIA) Negative for flu a/b Assessment & Plan - Assessment and Plan (Free Text) Assessment: 82 y/o admitted for COPD exacerbation SOB with increased sputum production and quality Mild improvement with Duoneb x3 and Solu-medrol x1 at ED Flu neg no white count or fever O2sat with O2 NC 95 LE edema is mild to moderate Will start patient on IV abx for COPD exacerbation CXR infiltrates vs atelectasies Symptoms seems more resp than cardiac at this time Will get Probnp to compare with previous admission as well as Procalcitonin Previous Echo 05/2017: normal systolic function. + for pulm HTN and valvulopathy CHF is likely diastolic CKD St 3B: Stable <Juan A Lawrence - Last Filed: 11/25/17 23:59> Results - Vital Signs Recent Vital Signs: Last Vital Signs Temp 98.3 F 11/25/17 23:29 Pulse 60 11/25/17 23:29 Resp 20 11/25/17 23:29 BP 107/62 11/25/17 23:29 Pulse Ox 100 11/25/17 23:29 - Labs Result Diagrams: 11/25/17 04:28 11/25/17 04:28 Labs: Laboratory Results - last 24 hr 11/23/17 11/25/17 11/25/17 12:19 04:28 04:28 WBC 7.2 RBC 3.19 L Hgb 9.4 L Hct 28.8 L MCV 90.3 MCH 29.3 MCHC 32.5 L RDW 16.0 H Plt Count 178 pCO2 pO2 HCO3 ABG pH ABG Total CO2 ABG O2 Saturation ABG O2 Content ABG Base Excess ABG Hemoglobin ABG Carboxyhemoglobin POC ABG HHb (Measured) ABG Methemoglobin ABG O2 Capacity Kermit Test A-a O2 Difference Hgb O2 Saturation Vent Mode FiO2 Sodium 142 Potassium 4.1 Chloride 101 Carbon Dioxide 28 Anion Gap 17 BUN 47 H Creatinine 1.3 H Est GFR ( Amer) 47 Est GFR (Non-Af Amer) 39 POC Glucose (mg/dL) Random Glucose 153 H Calcium 9.0 Procalcitonin < 0.05 L 11/25/17 11/25/17 11/25/17 04:34 05:09 12:49 WBC RBC Hgb Hct MCV MCH MCHC RDW Plt Count pCO2 48 H pO2 166 H HCO3 30.2 H ABG pH 7.43 ABG Total CO2 33.4 H ABG O2 Saturation 100.7 H ABG O2 Content 13.1 L ABG Base Excess 6.7 H ABG Hemoglobin 9.1 L ABG Carboxyhemoglobin 1.7 H POC ABG HHb (Measured) -0.7 L ABG Methemoglobin 0.0 ABG O2 Capacity 13.0 L Kermit Test Yes A-a O2 Difference 2.0 Hgb O2 Saturation 99.1 H Vent Mode 3lnc FiO2 32.0 Sodium Potassium Chloride Carbon Dioxide Anion Gap BUN Creatinine Est GFR ( Amer) Est GFR (Non-Af Amer) POC Glucose (mg/dL) 130 H 193 H Random Glucose Calcium Procalcitonin 11/25/17 11/25/17 16:37 22:00 WBC RBC Hgb Hct MCV MCH MCHC RDW Plt Count pCO2 pO2 HCO3 ABG pH ABG Total CO2 ABG O2 Saturation ABG O2 Content ABG Base Excess ABG Hemoglobin ABG Carboxyhemoglobin POC ABG HHb (Measured) ABG Methemoglobin ABG O2 Capacity Kermit Test A-a O2 Difference Hgb O2 Saturation Vent Mode FiO2 Sodium Potassium Chloride Carbon Dioxide Anion Gap BUN Creatinine Est GFR ( Amer) Est GFR (Non-Af Amer) POC Glucose (mg/dL) 121 H 235 H Random Glucose Calcium Procalcitonin Assessment & Plan (1) Pneumonia Status: Acute (2) COPD exacerbation Status: Acute (3) Chronic congestive heart failure Status: Acute - Assessment and Plan (Free Text) Plan: I was present during evaluation and discussed with Dr Young re plans of care and tx. Althea Blackwood.
[2017-11-23] MEDS ORDERED: Glucagon Recombinant 1 mg Inj IM PRN (13:02)
[2017-11-23] MEDS ORDERED: Dextrose 50% SYRINGE Inj (50 ml) IVP PRN (13:02)
[2017-11-23] MEDS: Azithromycin 500 MG in Sodium Chloride 0.9% 250 ML IVPB SCH (16:53)
[2017-11-23] MEDS: Insulin Regular 100 units/ml SC SCH ×2 (17:00→22:13)
[2017-11-23] MEDS ORDERED: methylPREDNISolone 125 MG in Sodium Chloride 0.9% 50 ML IVPB SCH (21:00)
[2017-11-24 07:12] LABS: HEMOGLOBIN 9.7 g/dL (12.0-16.0); LYMPH # 1.2 K/uL (1.0-4.3); LYMPH % 16.9 % (20.0-40.0); MEAN CELL VOLUME 90.4 fl (81.0-99.0); MEAN CORPUSCULAR HEMOGLOBIN 29.2 pg (27.0-31.0); MEAN CORPUSCULAR HGB CONC 32.3 g/dL (33.0-37.0); MEAN PLATELET VOLUME 10.9 fl (7.2-11.7); MONO # 0.1 K/uL (0.0-0.8); MONO % 1.9 % (0.0-10.0); NEUT # 5.6 K/uL (1.8-7.0); NEUT % 81.2 % (50.0-75.0); RBC 3.31 Mil/uL (3.80-5.20); RED CELL DISTRIBUTION WIDTH 15.4 % (11.5-14.5); WHITE BLOOD COUNT 6.8 K/uL (4.8-10.8)
[2017-11-24 07:29] LABS: CALCIUM 8.7 mg/dL (8.4-10.2)
[2017-11-24] MEDS ORDERED: metOLazone 2.5 MG TAB PO SCH (09:00)
[2017-11-24] MEDS ORDERED: Pantoprazole 40 mg EC Tab PO SCH (09:00)
[2017-11-24] MEDS: Insulin Regular 100 units/ml SC SCH ×4 (09:41→22:00)
[2017-11-24] MEDS: Azithromycin 500 MG in Sodium Chloride 0.9% 250 ML IVPB SCH (09:43)
[2017-11-24] MEDS ORDERED: Albuterol-Ipratrop 3 mg / 0.5 (3 ml) UD INH PRN ×3 (13:39→21:51)
[2017-11-24] MEDS ORDERED: Albuterol-Ipratrop 3 mg / 0.5 (3 ml) UD INH STA (13:39)
[2017-11-24 13:58] LABS: ABG ALLEN TEST YES; ARTERIAL BLOOD GAS HCO3 29.9 mmol/L (21-28); ARTERIAL BLOOD GAS HEMOGLOBIN 9.8 g/dL (11.7-17.4); ARTERIAL BLOOD GAS O2 CAPACITY 14.1 mL/dL (16-24); ARTERIAL BLOOD GAS O2 CONTENT 14.2 ML/dL (15-23); ARTERIAL BLOOD GAS O2 SAT 100.6 % (95-98); ARTERIAL BLOOD GAS PCO2 42 mm/Hg (35-45); ARTERIAL BLOOD GAS PH 7.47 (7.35-7.45); ARTERIAL BLOOD GAS PO2 255 mm/Hg (80-100); ARTERIAL BLOOD GAS TCO2 31.9 mmol/L (22-28)
--- NOTE | 2017-11-24 14:02 | CP.PCM.PN ---
Subjective - Date & Time of Evaluation Date of Evaluation: 11/24/17 Time of Evaluation: 14:00 - Subjective Subjective: Patient was noted to have worsening of wheezing and SOB. CXR showed bilateral infiltrate. Has no fever WBC was normal. Currently on Solumedrol 125 q 12. THERAPEUTIC RECREATION SPECIALIST called due to rapid SOB and chest pain Objective - Vital Signs/Intake and Output Vital Signs (last 24 hours): Temp Pulse Resp BP Pulse Ox 97.9 F 67 18 91/50 L 100 11/24/17 12:27 11/24/17 12:27 11/24/17 12:27 11/24/17 12:27 11/24/17 12:27 - Medications Medications: Current Medications Albuterol/Ipratropium (Duoneb 3 Mg/0.5 Mg (3 Ml) Ud) 3 ml INH RQ4 PRN PRN Reason: Shortness of Breath Atorvastatin Calcium (Lipitor) 40 mg PO DAILY [facility] Last Admin: 11/24/17 09:41 Dose: 40 mg Carvedilol (Coreg) 12.5 mg PO Q12 [facility] Last Admin: 11/24/17 09:40 Dose: 12.5 mg Clopidogrel Bisulfate (Plavix) 75 mg PO DAILY [facility] Last Admin: 11/24/17 09:40 Dose: 75 mg Dextrose (Dextrose 50% Inj) 0 ml IVP STAT PRN; Protocol PRN Reason: Hypoglycemia Protocol Furosemide (Lasix) 20 mg PO DAILY [facility] Last Admin: 11/24/17 09:41 Dose: 20 mg Gabapentin (Neurontin) 300 mg PO DAILY [facility] Last Admin: 11/24/17 09:41 Dose: 300 mg Glucagon (Glucagen Diagnostic Kit) 0 mg IM STAT PRN; Protocol PRN Reason: Hypoglycemia Protocol Azithromycin 500 mg/ Sodium (Chloride) 250 mls @ 250 mls/hr IVPB DAILY [facility] PRN Reason: Protocol Last Admin: 11/24/17 09:43 Dose: 250 mls/hr Ceftriaxone Sodium 1 gm/ (Dextrose) 100 mls @ 100 mls/hr IVPB DAILY [facility] PRN Reason: Protocol Last Admin: 11/23/17 16:56 Dose: 100 mls/hr Insulin Human Regular (Humulin R) 0 units SC ACCU-CHECK [facility] PRN Reason: Protocol Last Admin: 11/24/17 09:41 Dose: 1 u Memantine (Namenda) 5 mg PO BID [facility] Last Admin: 11/24/17 09:41 Dose: 5 mg Methylprednisolone (Solu-Medrol) 125 mg IV Q12 [facility] Last Admin: 11/24/17 09:38 Dose: 125 mg Pantoprazole Sodium (Protonix Ec Tab) 40 mg PO DAILY [facility] Last Admin: 11/24/17 09:41 Dose: 40 mg Rivaroxaban (Xarelto) 15 mg PO DAILY [facility] PRN Reason: Protocol Last Admin: 11/24/17 09:39 Dose: 15 mg Sitagliptin Phosphate (Januvia) 25 mg PO DAILY [facility] Last Admin: 11/24/17 09:40 Dose: 25 mg Spironolactone (Aldactone) 50 mg PO DAILY [facility] Last Admin: 11/24/17 09:40 Dose: 50 mg Valsartan (Diovan) 160 mg PO DAILY [facility] Last Admin: 11/24/17 09:40 Dose: 160 mg - Labs Labs: 11/24/17 06:30 11/24/17 06:30 - Head Exam Head Exam: NORMAL INSPECTION - ENT Exam ENT Exam: Mucous Membranes Moist - Respiratory Exam Respiratory Exam: Rales, Rhonchi, Respiratory Distress - Cardiovascular Exam Cardiovascular Exam: Tachycardia - GI/Abdominal Exam GI & Abdominal Exam: Normal Bowel Sounds Assessment and Plan (1) Pneumonia Status: Acute (2) COPD exacerbation Status: Acute (3) Systolic CHF, acute on chronic Status: Acute - Assessment and Plan (Free Text) Plan: Cont meds Cont tx Cont PT neb tx pulmonary eval Dr Burrows
--- NOTE | 2017-11-24 14:09 | CP.PCM.CON ---
History of Present Illness - History of Present Illness History of Present Illness: CC: PNA. 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 Patient's daughter noticed that Patient developed diarrhea with increased SOB , cough productive. Patient was seen ER [facility] 0n 11/23/17 and admitted, the following date today , on 11-24, I was called in Pulmonary consultation, Patient with marked respiratory distress , using accessory muscles , SUIT MAKER was called , Patient was treated with Lasix 60 mg IV , ABG PCO2 42 , PO2 255 , PH 7.47 O2 sat 100 , NC 3 Lm, Patient was transferred to ICU for close monitoring. No: fever, chills, n/v, abdominal pain, CP, syncope. Hx of COPD, PNA , CHF , AFib , PPM ,CABG , previous AD to [facility] for COPD Exacerbation, PNA , CHF Review of Systems - Review of Systems Systems not reviewed;Unavailable: Acuity of Condition Past Patient History - Infectious Disease Hx of Infectious Diseases: None - Tetanus Immunizations Tetanus Immunization: Unknown - Past Medical History & Family History Past Medical History?: Yes - Past Social History Alcohol: None Drugs: Denies Home Situation {Lives}: Alone - CARDIAC Hx Atrial Fibrillation: Yes Hx Cardia Arrhythmia: Yes Hx Congestive Heart Failure: Yes Hx Hypercholesterolemia: Yes Hx Hypertension: Yes Hx Pacemaker: Yes Hx Peripheral Edema: Yes - PULMONARY Hx Asthma: Yes Hx Bronchitis: Yes Hx Chronic Obstructive Pulmonary Disease (COPD): Yes Hx Pneumonia: Yes - NEUROLOGICAL Hx Dementia: Yes Hx Parkinson's Disease: Yes Hx Transient Ischemic Attacks (TIA): Yes - HEENT Hx HEENT Problems: No - RENAL Hx Chronic Kidney Disease: No - ENDOCRINE/METABOLIC Hx Hypothyroidism: No - HEMATOLOGICAL/ONCOLOGICAL Hx Anemia: Yes Hx Human Immunodeficiency Virus (HIV): No - INTEGUMENTARY Hx Dermatological Problems: No - MUSCULOSKELETAL/RHEUMATOLOGICAL Hx Arthritis: Yes Hx Rheumatoid Arthritis: No - GASTROINTESTINAL Hx Gastritis: Yes - GENITOURINARY/GYNECOLOGICAL Hx Genitourinary Disorders: No - PSYCHIATRIC Hx Anxiety: Yes - SURGICAL HISTORY Hx Appendectomy: Yes Hx Carotid Endarterectomy: Yes Hx Cholecystectomy: Yes Hx Coronary Artery Bypass Graft: Yes - ANESTHESIA Hx Anesthesia: Yes Hx Anesthesia Reactions: No Hx Malignant Hyperthermia: No Meds Allergies/Adverse Reactions: Allergies Allergy/AdvReac Type Severity Reaction Status Date / Time oxycodone Allergy RASH Verified 06/20/17 22:31 - Medications Medications: Current Medications Albuterol/Ipratropium (Duoneb 3 Mg/0.5 Mg (3 Ml) Ud) 3 ml INH RQ4 PRN PRN Reason: Shortness of Breath Atorvastatin Calcium (Lipitor) 40 mg PO DAILY [facility] Last Admin: 11/24/17 09:41 Dose: 40 mg Carvedilol (Coreg) 12.5 mg PO Q12 [facility] Last Admin: 11/24/17 09:40 Dose: 12.5 mg Clopidogrel Bisulfate (Plavix) 75 mg PO DAILY [facility] Last Admin: 11/24/17 09:40 Dose: 75 mg Dextrose (Dextrose 50% Inj) 0 ml IVP STAT PRN; Protocol PRN Reason: Hypoglycemia Protocol Furosemide (Lasix) 20 mg PO DAILY [facility] Last Admin: 11/24/17 09:41 Dose: 20 mg Gabapentin (Neurontin) 300 mg PO DAILY [facility] Last Admin: 11/24/17 09:41 Dose: 300 mg Glucagon (Glucagen Diagnostic Kit) 0 mg IM STAT PRN; Protocol PRN Reason: Hypoglycemia Protocol Azithromycin 500 mg/ Sodium (Chloride) 250 mls @ 250 mls/hr IVPB DAILY [facility] PRN Reason: Protocol Last Admin: 11/24/17 09:43 Dose: 250 mls/hr Ceftriaxone Sodium 1 gm/ (Dextrose) 100 mls @ 100 mls/hr IVPB DAILY [facility] PRN Reason: Protocol Last Admin: 11/23/17 16:56 Dose: 100 mls/hr Insulin Human Regular (Humulin R) 0 units SC ACCU-CHECK [facility] PRN Reason: Protocol Last Admin: 11/24/17 09:41 Dose: 1 u Memantine (Namenda) 5 mg PO BID [facility] Last Admin: 11/24/17 09:41 Dose: 5 mg Methylprednisolone (Solu-Medrol) 125 mg IV Q12 [facility] Last Admin: 11/24/17 09:38 Dose: 125 mg Pantoprazole Sodium (Protonix Ec Tab) 40 mg PO DAILY [facility] Last Admin: 11/24/17 09:41 Dose: 40 mg Rivaroxaban (Xarelto) 15 mg PO DAILY [facility] PRN Reason: Protocol Last Admin: 11/24/17 09:39 Dose: 15 mg Sitagliptin Phosphate (Januvia) 25 mg PO DAILY [facility] Last Admin: 11/24/17 09:40 Dose: 25 mg Spironolactone (Aldactone) 50 mg PO DAILY [facility] Last Admin: 11/24/17 09:40 Dose: 50 mg Valsartan (Diovan) 160 mg PO DAILY [facility] Last Admin: 11/24/17 09:40 Dose: 160 mg Physical Exam - Constitutional Appears: Chronically Ill - Head Exam Head Exam: NORMAL INSPECTION - Eye Exam Eye Exam: PERRL - ENT Exam ENT Exam: Normal Exam - Neck Exam Neck exam: Positive for: Normal Inspection - Respiratory Exam Respiratory Exam: Decreased Breath Sounds, Rales (crackles at bases), Rhonchi , Wheezes Additional comments: using accesory muscles - Cardiovascular Exam Cardiovascular Exam: REGULAR RHYTHM, Systolic Murmur (2-3/6 [facility] [place]) Additional comments: PPM - GI/Abdominal Exam GI & Abdominal Exam: Normal Bowel Sounds, Soft - Extremities Exam Extremities exam: Positive for: normal inspection - Back Exam Back exam: NORMAL INSPECTION - Neurological Exam Additional comments: respiratory distress , no focal motor sensory deficit , generalized weakness - Psychiatric Exam Psychiatric exam: Anxious - Skin Skin Exam: Warm Results - Vital Signs Recent Vital Signs: Last Vital Signs Temp 97.9 F 11/24/17 12:27 Pulse 67 11/24/17 12:27 Resp 18 11/24/17 12:27 BP 91/50 L 11/24/17 12:27 Pulse Ox 100 11/24/17 12:27 - Labs Result Diagrams: 11/27/17 09:45 11/27/17 09:45 Labs: Laboratory Results - last 24 hr 11/23/17 11/23/17 11/24/17 16:59 22:10 05:33 WBC RBC Hgb Hct MCV MCH MCHC RDW Plt Count MPV Neut % (Auto) Lymph % (Auto) [place] % (Auto) Eos % (Auto) Baso % (Auto) Neut # (Auto) Lymph # (Auto) [place] # (Auto) Eos # (Auto) Baso # (Auto) pCO2 pO2 HCO3 ABG pH ABG Total CO2 ABG O2 Saturation ABG O2 Content ABG Base Excess ABG Hemoglobin ABG Carboxyhemoglobin POC ABG HHb (Measured) ABG Methemoglobin ABG O2 Capacity Kermit Test A-a O2 Difference Hgb O2 Saturation FiO2 Sodium Potassium Chloride Carbon Dioxide Anion Gap BUN Creatinine Est GFR ( Amer) Est GFR (Non-Af Amer) POC Glucose (mg/dL) 177 H 119 H 158 H Random Glucose Calcium 11/24/1718 11/24/17 06:30 06:30 11:24 WBC 6.8 RBC 3.31 L Hgb 9.7 L Hct 30.0 L MCV 90.4 MCH 29.2 MCHC 32.3 L RDW 15.4 H Plt Count 194 MPV 10.9 Neut % (Auto) 81.2 H Lymph % (Auto) 16.9 L [place] % (Auto) 1.9 Eos % (Auto) 0.0 Baso % (Auto) 0.0 Neut # (Auto) 5.6 Lymph # (Auto) 1.2 [place] # (Auto) 0.1 Eos # (Auto) 0.0 Baso # (Auto) 0.0 pCO2 pO2 HCO3 ABG pH ABG Total CO2 ABG O2 Saturation ABG O2 Content ABG Base Excess ABG Hemoglobin ABG Carboxyhemoglobin POC ABG HHb (Measured) ABG Methemoglobin ABG O2 Capacity Kermit Test A-a O2 Difference Hgb O2 Saturation FiO2 Sodium 137 Potassium 4.7 Chloride 98 Carbon Dioxide 28 Anion Gap 16 BUN 41 H Creatinine 1.1 Est GFR ( Amer) 57 Est GFR (Non-Af Amer) 47 POC Glucose (mg/dL) 198 H Random Glucose 159 H Calcium 8.7 11/24/17 13:52 WBC RBC Hgb Hct MCV MCH MCHC RDW Plt Count MPV Neut % (Auto) Lymph % (Auto) [place] % (Auto) Eos % (Auto) Baso % (Auto) Neut # (Auto) Lymph # (Auto) [place] # (Auto) Eos # (Auto) Baso # (Auto) pCO2 42 pO2 255 H HCO3 29.9 H ABG pH 7.47 H ABG Total CO2 31.9 H ABG O2 Saturation 100.6 H ABG O2 Content 14.2 L ABG Base Excess 6.3 H ABG Hemoglobin 9.8 L ABG Carboxyhemoglobin 1.7 H POC ABG HHb (Measured) -0.6 L ABG Methemoglobin 0.5 ABG O2 Capacity 14.1 L Kermit Test Yes A-a O2 Difference 49.0 Hgb O2 Saturation 98.4 H FiO2 50.0 Sodium Potassium Chloride Carbon Dioxide Anion Gap BUN Creatinine Est GFR ( Amer) Est GFR (Non-Af Amer) POC Glucose (mg/dL) Random Glucose Calcium Assessment & Plan (1) Respiratory distress Status: Acute (2) COPD exacerbation Status: Acute (3) HCAP (healthcare-associated pneumonia) Status: Acute (4) Systolic CHF, acute on chronic Status: Acute (5) Afib Status: Chronic (6) Pacemaker Status: Chronic - Assessment and Plan (Free Text) Plan: Solu Medrol , Carlene Ray , ICU , close monitoring , continue of treatment - Date & Time Date: 11/24/17 Time: 13:30
--- NOTE | 2017-11-24 14:27 | PCM.RRT ---
<Jose Kinney - Last Filed: 11/24/17 14:31> FURNACE ROASTER Nurse Assessment - Ventilator Settings Peak Flow: 150 Plan - Assessment of Findings&Treatment Plan FURNACE ROASTER FURNACE ROASTER Time: 14:04 FURNACE ROASTER Location: [facility] FURNACE ROASTER Arrival: 14:05 FURNACE ROASTER Reason: Shallow breathing observed by nurse S: 82 yo F pmhx of COPD, CHF, CVA, HTN, DM2, OA, with pacemaker was observed with abnormal shallow breathing. O: FURNACE ROASTER Vitals: BP: 117/75 HR: 96 RR: 16; 2L O2 via NC General: Alert and oriented Cardiac: S1 S2 Resp: diffuse inspiratory wheezing Abdo: soft, nontender, active bowel sounds FURNACE ROASTER intervention: Ordered lasix 60 mg IV stat; CXR stat Duoneb: q4 scheduled and q3 prn Transfer to ICU A/P: 82 yo F pmhx of COPD, CHF, CVA, HTN, DM2, OA, with pacemaker was observed with abnormal shallow breathing. FURNACE ROASTER end: 14:25 FURNACE ROASTER Leader: Dr. Tari Casas FURNACE ROASTER residents: Otis Young MD PGY2; Jose Kinney MD PGY1 <Tari Casas K - Last Filed: 11/28/17 14:37> FURNACE ROASTER Nurse Assessment - Vital Signs Vital Signs: Rapid Response Vital Sign Blood Pressure 117/75 Pulse Rate 59 Respiratory Rate 25 Oxygen Saturation 99 Attending/Attestation - Attestation I have personally seen and examined this patient.: Yes I have fully participated in the care of the patient.: Yes I have reviewed all pertinent clinical information, including history, physical exam and plan: Yes Notes (Text): 11/28/17 14:37 seen examined discussed with reisdent dr. kinney, agree with findings and plan as above
--- NOTE | 2017-11-24 15:07 | CP.PCM.CON ---
History of Present Illness - History of Present Illness History of Present Illness: I saw the patient in [facility], where an HAND MOUNTER was called as patient was very SOB, she was tachypnic and was using her accessory muscles of respiration bt was able to maintain Oxygen saturation > 95% on 4L [place]. No chest pain. She was admitted yesterday with SOB and increased sputum production with cough but no fever. Pt had no CP. On my quick exam she has ronchi and crackles and was treated with 60 mg lasix and nebulizor and started to feel better and avoided intubation, transferred to ICU for close monitoring. She has h/o FRANKO, CHF, A fib a, CVA, DM Review of Systems - Review of Systems Systems not reviewed;Unavailable: Respiratory Distress - Constitutional Constitutional: As Per HPI - EENT Eyes: As Per HPI Nose/Mouth/Throat: As Per HPI - Cardiovascular Cardiovascular: Dyspnea - Respiratory Respiratory: Wheezing, Chest Congestion - Gastrointestinal Gastrointestinal: As Per HPI - Genitourinary Genitourinary: As Per HPI Past Patient History - Infectious Disease Hx of Infectious Diseases: None - Tetanus Immunizations Tetanus Immunization: Unknown - Past Medical History & Family History Past Medical History?: Yes - Past Social History Alcohol: None Drugs: Denies - CARDIAC Hx Atrial Fibrillation: Yes Hx Cardia Arrhythmia: Yes Hx Congestive Heart Failure: Yes Hx Hypercholesterolemia: Yes Hx Hypertension: Yes Hx Pacemaker: Yes Hx Peripheral Edema: Yes - PULMONARY Hx Asthma: Yes Hx Bronchitis: Yes Hx Chronic Obstructive Pulmonary Disease (COPD): Yes Hx Pneumonia: Yes - NEUROLOGICAL Hx Dementia: Yes Hx Parkinson's Disease: Yes Hx Transient Ischemic Attacks (TIA): Yes - HEENT Hx HEENT Problems: No - RENAL Hx Chronic Kidney Disease: No - ENDOCRINE/METABOLIC Hx Hypothyroidism: No - HEMATOLOGICAL/ONCOLOGICAL Hx Anemia: Yes Hx Human Immunodeficiency Virus (HIV): No - INTEGUMENTARY Hx Dermatological Problems: No - MUSCULOSKELETAL/RHEUMATOLOGICAL Hx Arthritis: Yes Hx Rheumatoid Arthritis: No - GASTROINTESTINAL Hx Gastritis: Yes - GENITOURINARY/GYNECOLOGICAL Hx Genitourinary Disorders: No - PSYCHIATRIC Hx Anxiety: Yes - SURGICAL HISTORY Hx Appendectomy: Yes Hx Carotid Endarterectomy: Yes Hx Cholecystectomy: Yes Hx Coronary Artery Bypass Graft: Yes - ANESTHESIA Hx Anesthesia: Yes Hx Anesthesia Reactions: No Hx Malignant Hyperthermia: No Meds Allergies/Adverse Reactions: Allergies Allergy/AdvReac Type Severity Reaction Status Date / Time oxycodone Allergy RASH Verified 06/20/17 22:31 - Medications Medications: Current Medications Albuterol/Ipratropium (Duoneb 3 Mg/0.5 Mg (3 Ml) Ud) 3 ml INH Q4 [facility] Albuterol/Ipratropium (Duoneb 3 Mg/0.5 Mg (3 Ml) Ud) 3 ml INH RQ3 PRN PRN Reason: Shortness of Breath Atorvastatin Calcium (Lipitor) 40 mg PO DAILY [facility] Last Admin: 11/24/17 09:41 Dose: 40 mg Carvedilol (Coreg) 12.5 mg PO Q12 [facility] Last Admin: 11/24/17 09:40 Dose: 12.5 mg Clopidogrel Bisulfate (Plavix) 75 mg PO DAILY [facility] Last Admin: 11/24/17 09:40 Dose: 75 mg Dextrose (Dextrose 50% Inj) 0 ml IVP STAT PRN; Protocol PRN Reason: Hypoglycemia Protocol Furosemide (Lasix) 20 mg PO DAILY [facility] Last Admin: 11/24/17 09:41 Dose: 20 mg Gabapentin (Neurontin) 300 mg PO DAILY [facility] Last Admin: 11/24/17 09:41 Dose: 300 mg Glucagon (Glucagen Diagnostic Kit) 0 mg IM STAT PRN; Protocol PRN Reason: Hypoglycemia Protocol Vancomycin HCl 1 gm/ Sodium (Chloride) 250 mls @ 166.667 mls/hr IVPB DAILY [facility] PRN Reason: Protocol Piperacillin Sod/Tazobactam (Sod 2.25 gm/ Sodium Chloride) 100 mls @ 100 mls/ hr IVPB Q8 [facility] PRN Reason: Protocol Insulin Human Regular (Humulin R) 0 units SC ACCU-CHECK [facility] PRN Reason: Protocol Last Admin: 11/24/17 09:41 Dose: 1 u Memantine (Namenda) 5 mg PO BID [facility] Last Admin: 11/24/17 09:41 Dose: 5 mg Methylprednisolone (Solu-Medrol) 60 mg IV Q8 [facility] Pantoprazole Sodium (Protonix Ec Tab) 40 mg PO DAILY [facility] Last Admin: 11/24/17 09:41 Dose: 40 mg Rivaroxaban (Xarelto) 15 mg PO DAILY [facility] PRN Reason: Protocol Last Admin: 11/24/17 09:39 Dose: 15 mg Sitagliptin Phosphate (Januvia) 25 mg PO DAILY [facility] Last Admin: 11/24/17 09:40 Dose: 25 mg Spironolactone (Aldactone) 50 mg PO DAILY [facility] Last Admin: 11/24/17 09:40 Dose: 50 mg Valsartan (Diovan) 160 mg PO DAILY [facility] Last Admin: 11/24/17 09:40 Dose: 160 mg Physical Exam - Constitutional Appears: No Acute Distress, In Acute Distress - Eye Exam Pupil Exam: NORMAL ACCOMODATION - ENT Exam ENT Exam: Normal Exam - Respiratory Exam Respiratory Exam: Accessory Muscle Use, Rales, Wheezes - Cardiovascular Exam Cardiovascular Exam: Irregular Rhythm - GI/Abdominal Exam GI & Abdominal Exam: Soft Results - Vital Signs Recent Vital Signs: Last Vital Signs Temp 97.9 F 11/24/17 12:27 Pulse 67 11/24/17 12:27 Resp 18 11/24/17 12:27 BP 91/50 L 11/24/17 12:27 Pulse Ox 100 11/24/17 12:27 - Labs Result Diagrams: 11/24/17 06:30 11/24/17 06:30 Labs: Laboratory Results - last 24 hr 11/23/17 11/23/17 11/24/17 16:59 22:10 05:33 WBC RBC Hgb Hct MCV MCH MCHC RDW Plt Count MPV Neut % (Auto) Lymph % (Auto) Armstrong % (Auto) Eos % (Auto) Baso % (Auto) Neut # (Auto) Lymph # (Auto) Armstrong # (Auto) Eos # (Auto) Baso # (Auto) pCO2 pO2 HCO3 ABG pH ABG Total CO2 ABG O2 Saturation ABG O2 Content ABG Base Excess ABG Hemoglobin ABG Carboxyhemoglobin POC ABG HHb (Measured) ABG Methemoglobin ABG O2 Capacity Kermit Test A-a O2 Difference Hgb O2 Saturation FiO2 Sodium Potassium Chloride Carbon Dioxide Anion Gap BUN Creatinine Est GFR ( Amer) Est GFR (Non-Af Amer) POC Glucose (mg/dL) 177 H 119 H 158 H Random Glucose Calcium 11/24/17 11/24/17 11/24/17 06:30 06:30 11:24 WBC 6.8 RBC 3.31 L Hgb 9.7 L Hct 30.0 L MCV 90.4 MCH 29.2 MCHC 32.3 L RDW 15.4 H Plt Count 194 MPV 10.9 Neut % (Auto) 81.2 H Lymph % (Auto) 16.9 L Armstrong % (Auto) 1.9 Eos % (Auto) 0.0 Baso % (Auto) 0.0 Neut # (Auto) 5.6 Lymph # (Auto) 1.2 Armstrong # (Auto) 0.1 Eos # (Auto) 0.0 Baso # (Auto) 0.0 pCO2 pO2 HCO3 ABG pH ABG Total CO2 ABG O2 Saturation ABG O2 Content ABG Base Excess ABG Hemoglobin ABG Carboxyhemoglobin POC ABG HHb (Measured) ABG Methemoglobin ABG O2 Capacity Kermit Test A-a O2 Difference Hgb O2 Saturation FiO2 Sodium 137 Potassium 4.7 Chloride 98 Carbon Dioxide 28 Anion Gap 16 BUN 41 H Creatinine 1.1 Est GFR ( Amer) 57 Est GFR (Non-Af Amer) 47 POC Glucose (mg/dL) 198 H Random Glucose 159 H Calcium 8.7 11/24/17 13:52 WBC RBC Hgb Hct MCV MCH MCHC RDW Plt Count MPV Neut % (Auto) Lymph % (Auto) Armstrong % (Auto) Eos % (Auto) Baso % (Auto) Neut # (Auto) Lymph # (Auto) Armstrong # (Auto) Eos # (Auto) Baso # (Auto) pCO2 42 pO2 255 H HCO3 29.9 H ABG pH 7.47 H ABG Total CO2 31.9 H ABG O2 Saturation 100.6 H ABG O2 Content 14.2 L ABG Base Excess 6.3 H ABG Hemoglobin 9.8 L ABG Carboxyhemoglobin 1.7 H POC ABG HHb (Measured) -0.6 L ABG Methemoglobin 0.5 ABG O2 Capacity 14.1 L Kermit Test Yes A-a O2 Difference 49.0 Hgb O2 Saturation 98.4 H FiO2 50.0 Sodium Potassium Chloride Carbon Dioxide Anion Gap BUN Creatinine Est GFR ( Amer) Est GFR (Non-Af Amer) POC Glucose (mg/dL) Random Glucose Calcium Assessment & Plan - Assessment and Plan (Free Text) Assessment: Acute resp distress Resp failure: COPD exacerbation SHF exacerbation A-fib h/o CVA Plan: Steroids Dueneb stat lasix 60 mg IV CXR transferred to ICU On zosyn and vanco and methyprednison, as per Pulmonary Continue other med, reviewed DVT prophylaxis, pt on xarelto
[2017-11-24] MEDS: Albuterol-Ipratrop 3 mg / 0.5 (3 ml) UD INH SCH ×3 (15:31→23:32)
--- NOTE | 2017-11-24 17:01 | RAD ---
PROCEDURE: CHEST RADIOGRAPH, 1 VIEW HISTORY: SOB COMPARISON: Comparison chest dated 11/23/2017. FINDINGS: LUNGS: Mild central pulmonary vascular congestive changes with bilateral lower lobe alveolar-type infiltrates and bilateral effusions. PLEURA: No pneumothorax or pleural fluid seen. CARDIOVASCULAR: Heart remains enlarged. Sternotomy wires, CABG clips, prostatic valve the unenhanced the the the and bipolar pacemaker unchanged Right paratracheal density likely represents ectatic great vessels. OSSEOUS STRUCTURES: No significant abnormalities. VISUALIZED UPPER ABDOMEN: Normal. OTHER FINDINGS: None. IMPRESSION: Pulmonary vascular congestive changes with bilateral lower lobe alveolar-type infiltrates and bilateral effusions.
[2017-11-24] MEDS ORDERED: Glucagon Recombinant 1 mg Inj IM PRN (21:51)
[2017-11-24] MEDS ORDERED: Dextrose 50% SYRINGE Inj (50 ml) IVP PRN (21:51)
[2017-11-25] MEDS: Albuterol-Ipratrop 3 mg / 0.5 (3 ml) UD INH SCH ×7 (01:00→23:27)
[2017-11-25] MEDS ORDERED: Sodium Chloride 3% for Inhalation 4 ML VIAL.NEB IH PRN (04:24)
[2017-11-25 05:12] LABS: ABG ALLEN TEST YES; ARTERIAL BLOOD GAS HCO3 30.2 mmol/L (21-28); ARTERIAL BLOOD GAS HEMOGLOBIN 9.1 g/dL (11.7-17.4); ARTERIAL BLOOD GAS O2 CONTENT 13.1 ML/dL (15-23); ARTERIAL BLOOD GAS O2 SAT 100.7 % (95-98); ARTERIAL BLOOD GAS PCO2 48 mm/Hg (35-45); ARTERIAL BLOOD GAS PH 7.43 (7.35-7.45); ARTERIAL BLOOD GAS PO2 166 mm/Hg (80-100); ARTERIAL BLOOD GAS TCO2 33.4 mmol/L (22-28)
[2017-11-25 06:01] LABS: HEMOGLOBIN 9.4 g/dL (12.0-16.0); MEAN CELL VOLUME 90.3 fl (81.0-99.0); MEAN CORPUSCULAR HEMOGLOBIN 29.3 pg (27.0-31.0); MEAN CORPUSCULAR HGB CONC 32.5 g/dL (33.0-37.0); RBC 3.19 Mil/uL (3.80-5.20); WHITE BLOOD COUNT 7.2 K/uL (4.8-10.8)
[2017-11-25] MEDS: Insulin Regular 100 units/ml SC SCH ×4 (06:30→23:39)
--- NOTE | 2017-11-25 07:32 | CP.CCUPN ---
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 Since yesterday, she has been asymptomatic, Satudration 100% on 3 n/c, no fever, labs are good, will transfer back to [facility]. CCU Objective - Vital Signs / Intake & Output Vital Signs (Last 4 hours): Vital Signs Temp Pulse Resp BP Pulse Ox 11/25/17 06:00 69 17 128/77 100 11/25/17 04:00 98.1 F 64 17 111/67 100 Intake and Output (Last 8hrs): Intake & Output 11/24/17 11/25/17 11/25/17 22:59 06:59 14:59 Intake Total 60 290 Output Total 250 400 Balance -190 -110 Intake: IV 60 240 Oral 50 Output: Urine 250 400 Urine, Voided 250 400 - Physical Exam Narrative Physical Exam (Free Text): 11/25/17 07:32 P/e: Neck: No jvd Lungs : rt basal crackels Heart: S1 S2 irregular Abdomen: non-tender Ext: No edema Neur: no focal signs - Medications Active Medications: Active Medications Generic Name Dose Route Start Last Admin Trade Name Freq PRN Reason Stop Dose Admin Albuterol/Ipratropium 3 ml 11/24/17 21:51 Duoneb 3 Mg/0.5 Mg (3 Ml) Ud INH RQ3 PRN Shortness of Breath Albuterol/Ipratropium 3 ml 11/25/17 01:00 11/25/17 04:59 Duoneb 3 Mg/0.5 Mg (3 Ml) Ud INH 3 ml RQ4 [facility] Administration Atorvastatin Calcium 40 mg 11/25/17 09:00 Lipitor PO DAILY [facility] Carvedilol 12.5 mg 11/25/17 09:00 Coreg PO Q12 [facility] Clopidogrel Bisulfate 75 mg 11/25/17 09:00 Plavix PO DAILY [facility] Dextrose 0 ml 11/24/17 21:51 Dextrose 50% Inj IVP STAT PRN Hypoglycemia Protocol Protocol Furosemide 20 mg 11/25/17 09:00 Lasix PO DAILY [facility] Gabapentin 300 mg 11/25/17 09:00 Neurontin PO DAILY [facility] Glucagon 0 mg 11/24/17 21:51 Glucagen Diagnostic Kit IM STAT PRN Hypoglycemia Protocol Protocol Vancomycin HCl 1 gm/ Sodium 250 mls @ 166.667 mls/hr 11/25/17 09:00 Chloride IVPB DAILY [facility] Protocol Piperacillin Sod/Tazobactam 100 mls @ 100 mls/hr 11/25/17 01:00 11/25/17 00: 19 Sod 2.25 gm/ Sodium Chloride IVPB 100 mls/hr Q8 [facility] Administration Protocol Insulin Human Regular 0 units 11/24/17 23:00 11/25/17 06:30 Humulin R SC Not Given ACCU-CHECK [facility] Protocol Memantine 5 mg 11/25/17 09:00 Namenda PO BID [facility] Methylprednisolone 60 mg 11/25/17 01:00 11/25/17 00:20 Solu-Medrol IV 60 mg Q8 [facility] Administration Pantoprazole Sodium 40 mg 11/25/17 09:00 Protonix Ec Tab PO DAILY [facility] Rivaroxaban 15 mg 11/25/17 09:00 Xarelto PO DAILY [facility] Protocol Sitagliptin Phosphate 25 mg 11/25/17 09:00 Januvia PO DAILY [facility] Spironolactone 50 mg 11/25/17 09:00 Aldactone PO DAILY [facility] Valsartan 160 mg 11/25/17 09:00 Diovan PO DAILY [facility] - Patient Studies Lab Studies: Microbiology Studies 11/23/17 11:45 Urine Culture - Preliminary Urine,Clean Catch Gram Negative Star 11/23/17 06:59 Blood Culture - Preliminary Blood-Venous NO GROWTH AFTER 24 HOURS Lab Studies 11/25/17 11/25/17 11/25/17 Range/Units 05:09 04:34 04:28 WBC (4.8-10.8) K/uL RBC (3.80-5.20) Mil/uL Hgb (12.0-16.0) g/dL Hct (34.0-47.0) % MCV (81.0-99.0) fl MCH (27.0-31.0) pg MCHC (33.0-37.0) g/dL RDW (11.5-14.5) % Plt Count (130-400) K/uL pCO2 48 H (35-45) mm/Hg pO2 166 H (80-100) mm/Hg HCO3 30.2 H (21-28) mmol/L ABG pH 7.43 (7.35-7.45) ABG Total CO2 33.4 H (22-28) mmol/L ABG O2 Saturation 100.7 H (95-98) % ABG O2 Content 13.1 L (15-23) ML/dL ABG Base Excess 6.7 H (-2.0-3.0) mmol/L ABG Hemoglobin 9.1 L (11.7-17.4) g/dL ABG Carboxyhemoglobin 1.7 H (0.5-1.5) % POC ABG HHb (Measured) -0.7 L (0.0-5.0) % ABG Methemoglobin 0.0 (0.0-3.0) % ABG O2 Capacity 13.0 L (16-24) mL/dL Kermit Test Yes A-a O2 Difference 2.0 mm/Hg Hgb O2 Saturation 99.1 H (95.0-98.0) % Vent Mode 3lnc FiO2 32.0 % Sodium 142 (132-148) mmol/l Potassium 4.1 (3.6-5.0) MMOL/L Chloride 101 (98-107) mmol/L Carbon Dioxide 28 (22-30) mmol/L Anion Gap 17 (10-20) BUN 47 H (7-17) mg/dl Creatinine 1.3 H (0.7-1.2) mg/dl Est GFR ( Amer) 47 Est GFR (Non-Af Amer) 39 POC Glucose (mg/dL) 130 H (65-110) mg/dL Random Glucose 153 H (65-105) mg/dL Calcium 9.0 (8.4-10.2) mg/dL Troponin I (0.00-0.120) ng/mL 11/25/17 11/24/17 11/24/17 Range/Units 04:28 21:13 16:38 WBC 7.2 (4.8-10.8) K/uL RBC 3.19 L (3.80-5.20) Mil/uL Hgb 9.4 L (12.0-16.0) g/dL Hct 28.8 L (34.0-47.0) % MCV 90.3 (81.0-99.0) fl MCH 29.3 (27.0-31.0) pg MCHC 32.5 L (33.0-37.0) g/dL RDW 16.0 H (11.5-14.5) % Plt Count 178 (130-400) K/uL pCO2 (35-45) mm/Hg pO2 (80-100) mm/Hg HCO3 (21-28) mmol/L ABG pH (7.35-7.45) ABG Total CO2 (22-28) mmol/L ABG O2 Saturation (95-98) % ABG O2 Content (15-23) ML/dL ABG Base Excess (-2.0-3.0) mmol/L ABG Hemoglobin (11.7-17.4) g/dL ABG Carboxyhemoglobin (0.5-1.5) % POC ABG HHb (Measured) (0.0-5.0) % ABG Methemoglobin (0.0-3.0) % ABG O2 Capacity (16-24) mL/dL Kermit Test A-a O2 Difference mm/Hg Hgb O2 Saturation (95.0-98.0) % Vent Mode FiO2 % Sodium (132-148) mmol/l Potassium (3.6-5.0) MMOL/L Chloride (98-107) mmol/L Carbon Dioxide (22-30) mmol/L Anion Gap (10-20) BUN (7-17) mg/dl Creatinine (0.7-1.2) mg/dl Est GFR ( Amer) Est GFR (Non-Af Amer) POC Glucose (mg/dL) 148 H 163 H (65-110) mg/dL Random Glucose (65-105) mg/dL Calcium (8.4-10.2) mg/dL Troponin I (0.00-0.120) ng/mL 11/24/17 11/24/17 11/24/17 Range/Units 15:48 13:52 11:24 WBC (4.8-10.8) K/uL RBC (3.80-5.20) Mil/uL Hgb (12.0-16.0) g/dL Hct (34.0-47.0) % MCV (81.0-99.0) fl MCH (27.0-31.0) pg MCHC (33.0-37.0) g/dL RDW (11.5-14.5) % Plt Count (130-400) K/uL pCO2 42 (35-45) mm/Hg pO2 255 H (80-100) mm/Hg HCO3 29.9 H (21-28) mmol/L ABG pH 7.47 H (7.35-7.45) ABG Total CO2 31.9 H (22-28) mmol/L ABG O2 Saturation 100.6 H (95-98) % ABG O2 Content 14.2 L (15-23) ML/dL ABG Base Excess 6.3 H (-2.0-3.0) mmol/L ABG Hemoglobin 9.8 L (11.7-17.4) g/dL ABG Carboxyhemoglobin 1.7 H (0.5-1.5) % POC ABG HHb (Measured) -0.6 L (0.0-5.0) % ABG Methemoglobin 0.5 (0.0-3.0) % ABG O2 Capacity 14.1 L (16-24) mL/dL Kermit Test Yes A-a O2 Difference 49.0 mm/Hg Hgb O2 Saturation 98.4 H (95.0-98.0) % Vent Mode FiO2 50.0 % Sodium (132-148) mmol/l Potassium (3.6-5.0) MMOL/L Chloride (98-107) mmol/L Carbon Dioxide (22-30) mmol/L Anion Gap (10-20) BUN (7-17) mg/dl Creatinine (0.7-1.2) mg/dl Est GFR ( Amer) Est GFR (Non-Af Amer) POC Glucose (mg/dL) 198 H (65-110) mg/dL Random Glucose (65-105) mg/dL Calcium (8.4-10.2) mg/dL Troponin I < 0.0120 (0.00-0.120) ng/mL Laboratory Results - last 24 hr 11/24/17 11/24/17 11/24/17 11:24 13:52 15:48 WBC RBC Hgb Hct MCV MCH MCHC RDW Plt Count pCO2 42 pO2 255 H HCO3 29.9 H ABG pH 7.47 H ABG Total CO2 31.9 H ABG O2 Saturation 100.6 H ABG O2 Content 14.2 L ABG Base Excess 6.3 H ABG Hemoglobin 9.8 L ABG Carboxyhemoglobin 1.7 H POC ABG HHb (Measured) -0.6 L ABG Methemoglobin 0.5 ABG O2 Capacity 14.1 L Kermit Test Yes A-a O2 Difference 49.0 Hgb O2 Saturation 98.4 H Vent Mode FiO2 50.0 Sodium Potassium Chloride Carbon Dioxide Anion Gap BUN Creatinine Est GFR ( Amer) Est GFR (Non-Af Amer) POC Glucose (mg/dL) 198 H Random Glucose Calcium Troponin I < 0.0120 11/24/17 11/24/17 11/25/17 16:38 21:13 04:28 WBC 7.2 RBC 3.19 L Hgb 9.4 L Hct 28.8 L MCV 90.3 MCH 29.3 MCHC 32.5 L RDW 16.0 H Plt Count 178 pCO2 pO2 HCO3 ABG pH ABG Total CO2 ABG O2 Saturation ABG O2 Content ABG Base Excess ABG Hemoglobin ABG Carboxyhemoglobin POC ABG HHb (Measured) ABG Methemoglobin ABG O2 Capacity Kermit Test A-a O2 Difference Hgb O2 Saturation Vent Mode FiO2 Sodium Potassium Chloride Carbon Dioxide Anion Gap BUN Creatinine Est GFR ( Amer) Est GFR (Non-Af Amer) POC Glucose (mg/dL) 163 H 148 H Random Glucose Calcium Troponin I 11/25/17 11/25/17 11/25/17 04:28 04:34 05:09 WBC RBC Hgb Hct MCV MCH MCHC RDW Plt Count pCO2 48 H pO2 166 H HCO3 30.2 H ABG pH 7.43 ABG Total CO2 33.4 H ABG O2 Saturation 100.7 H ABG O2 Content 13.1 L ABG Base Excess 6.7 H ABG Hemoglobin 9.1 L ABG Carboxyhemoglobin 1.7 H POC ABG HHb (Measured) -0.7 L ABG Methemoglobin 0.0 ABG O2 Capacity 13.0 L Kermit Test Yes A-a O2 Difference 2.0 Hgb O2 Saturation 99.1 H Vent Mode 3lnc FiO2 32.0 Sodium 142 Potassium 4.1 Chloride 101 Carbon Dioxide 28 Anion Gap 17 BUN 47 H Creatinine 1.3 H Est GFR ( Amer) 47 Est GFR (Non-Af Amer) 39 POC Glucose (mg/dL) 130 H Random Glucose 153 H Calcium 9.0 Troponin I Fingerstick Blood Sugar Results: 130 Critical Care Progress Note - Nutrition Nutrition: Nutrition Category Date Time Status Heart Healthy Diet [DIET] Diets 11/23/17 Lunch Active Assessment/Plan - Assessment and Plan (Free Text) Assessment: Resp failure: hypoxic and hypercapnic COPD exacerbation CHF exacerbation Pum edema A fib h/o CVA Plan: Meds reviewed CXR from yesterday reviewed Continue current meds Transfer back t Med-surg
[2017-11-25] MEDS: Pantoprazole 40 mg EC Tab PO SCH (09:34)
--- NOTE | 2017-11-25 19:51 | CP.PCM.PN ---
Subjective - Date & Time of Evaluation Date of Evaluation: 11/25/17 Time of Evaluation: 13:20 - Subjective Subjective: Breathing better, no SOB with O2 , "dry" cough , chest congestion Objective - Vital Signs/Intake and Output Vital Signs (last 24 hours): Temp Pulse Resp BP Pulse Ox 98.1 F 60 20 103/60 100 11/25/17 16:51 11/25/17 16:51 11/25/17 16:51 11/25/17 16:55 11/25/17 16:51 Intake and Output: 11/25/17 11/26/17 18:59 06:59 Intake Total 400 Balance 400 - Medications Medications: Current Medications Albuterol/Ipratropium (Duoneb 3 Mg/0.5 Mg (3 Ml) Ud) 3 ml INH RQ3 PRN PRN Reason: Shortness of Breath Albuterol/Ipratropium (Duoneb 3 Mg/0.5 Mg (3 Ml) Ud) 3 ml INH RQ4 [facility] Last Admin: 11/25/17 15:06 Dose: 3 ml Atorvastatin Calcium (Lipitor) 40 mg PO DAILY [facility] Last Admin: 11/25/17 09:33 Dose: 40 mg Carvedilol (Coreg) 12.5 mg PO Q12 [facility] Last Admin: 11/25/17 09:31 Dose: Not Given Clopidogrel Bisulfate (Plavix) 75 mg PO DAILY [facility] Last Admin: 11/25/17 09:34 Dose: 75 mg Dextrose (Dextrose 50% Inj) 0 ml IVP STAT PRN; Protocol PRN Reason: Hypoglycemia Protocol Furosemide (Lasix) 20 mg PO BID [facility] Last Admin: 11/25/17 16:55 Dose: 20 mg Gabapentin (Neurontin) 300 mg PO DAILY [facility] Last Admin: 11/25/17 09:34 Dose: 300 mg Glucagon (Glucagen Diagnostic Kit) 0 mg IM STAT PRN; Protocol PRN Reason: Hypoglycemia Protocol Vancomycin HCl 1 gm/ Sodium (Chloride) 250 mls @ 166.667 mls/hr IVPB DAILY [facility] PRN Reason: Protocol Last Admin: 11/25/17 09:45 Dose: 166.667 mls/hr Piperacillin Sod/Tazobactam (Sod 2.25 gm/ Sodium Chloride) 100 mls @ 100 mls/ hr IVPB Q8 [facility] PRN Reason: Protocol Last Admin: 11/25/17 17:08 Dose: 100 mls/hr Insulin Human Regular (Humulin R) 0 units SC ACCU-CHECK ON [facility] PRN Reason: Protocol Last Admin: 11/25/17 16:54 Dose: Not Given Memantine (Namenda) 5 mg PO BID [facility] Last Admin: 11/25/17 16:56 Dose: 5 mg Methylprednisolone (Solu-Medrol) 60 mg IV Q8 [facility] Last Admin: 11/25/17 16:56 Dose: 60 mg Pantoprazole Sodium (Protonix Ec Tab) 40 mg PO DAILY [facility] Last Admin: 11/25/17 09:34 Dose: 40 mg Rivaroxaban (Xarelto) 15 mg PO DAILY [facility] PRN Reason: Protocol Last Admin: 11/25/17 09:35 Dose: 15 mg Sitagliptin Phosphate (Januvia) 25 mg PO DAILY [facility] Last Admin: 11/25/17 09:32 Dose: 25 mg Spironolactone (Aldactone) 50 mg PO DAILY [facility] Last Admin: 11/25/17 09:31 Dose: 50 mg Valsartan (Diovan) 160 mg PO DAILY [facility] Last Admin: 11/25/17 09:32 Dose: Not Given - Labs Labs: 11/25/17 04:28 11/25/17 04:28 - Constitutional Appears: Chronically Ill - Head Exam Head Exam: NORMAL INSPECTION - Eye Exam Eye Exam: PERRL - ENT Exam ENT Exam: Normal Exam - Neck Exam Neck Exam: Normal Inspection - Respiratory Exam Respiratory Exam: Decreased Breath Sounds, Rhonchi - Cardiovascular Exam Cardiovascular Exam: REGULAR RHYTHM, Murmur - GI/Abdominal Exam GI & Abdominal Exam: Soft, Normal Bowel Sounds - Extremities Exam Extremities Exam: Normal Inspection - Back Exam Back Exam: NORMAL INSPECTION - Neurological Exam Neurological Exam: Alert Additional comments: no focal motor/sensory deficit - Psychiatric Exam Psychiatric exam: Normal Mood - Skin Skin Exam: Warm Assessment and Plan (1) Respiratory distress Status: Acute (2) COPD exacerbation Status: Acute (3) HCAP (healthcare-associated pneumonia) Status: Acute (4) Systolic CHF, acute on chronic Status: Acute (5) Afib Status: Chronic (6) Pacemaker Status: Chronic - Assessment and Plan (Free Text) Plan: continue current treatment , f/u CT Chest
--- NOTE | 2017-11-25 23:57 | CP.PCM.PN ---
Subjective - Date & Time of Evaluation Date of Evaluation: 11/25/17 Time of Evaluation: 13:20 - Subjective Subjective: Patient feels a lot better Still with occasional SOB and cough but has no fever. Objective - Vital Signs/Intake and Output Vital Signs (last 24 hours): Temp Pulse Resp BP Pulse Ox 98.3 F 60 20 107/62 100 11/25/17 23:29 11/25/17 23:29 11/25/17 23:29 11/25/17 23:29 11/25/17 23:29 Intake and Output: 11/25/17 11/26/17 18:59 06:59 Intake Total 400 Balance 400 - Medications Medications: Current Medications Albuterol/Ipratropium (Duoneb 3 Mg/0.5 Mg (3 Ml) Ud) 3 ml INH RQ3 PRN PRN Reason: Shortness of Breath Albuterol/Ipratropium (Duoneb 3 Mg/0.5 Mg (3 Ml) Ud) 3 ml INH RQ4 [facility] Last Admin: 11/25/17 23:27 Dose: 3 ml Atorvastatin Calcium (Lipitor) 40 mg PO DAILY [facility] Last Admin: 11/25/17 09:33 Dose: 40 mg Carvedilol (Coreg) 12.5 mg PO Q12 [facility] Last Admin: 11/25/17 21:32 Dose: Not Given Clopidogrel Bisulfate (Plavix) 75 mg PO DAILY [facility] Last Admin: 11/25/17 09:34 Dose: 75 mg Dextrose (Dextrose 50% Inj) 0 ml IVP STAT PRN; Protocol PRN Reason: Hypoglycemia Protocol Furosemide (Lasix) 20 mg PO BID [facility] Last Admin: 11/25/17 16:55 Dose: 20 mg Gabapentin (Neurontin) 300 mg PO DAILY [facility] Last Admin: 11/25/17 09:34 Dose: 300 mg Glucagon (Glucagen Diagnostic Kit) 0 mg IM STAT PRN; Protocol PRN Reason: Hypoglycemia Protocol Vancomycin HCl 1 gm/ Sodium (Chloride) 250 mls @ 166.667 mls/hr IVPB DAILY [facility] PRN Reason: Protocol Last Admin: 11/25/17 09:45 Dose: 166.667 mls/hr Piperacillin Sod/Tazobactam (Sod 2.25 gm/ Sodium Chloride) 100 mls @ 100 mls/ hr IVPB Q8 [facility] PRN Reason: Protocol Last Admin: 11/25/17 17:08 Dose: 100 mls/hr Insulin Human Regular (Humulin R) 0 units SC ACCU-CHECK [facility] PRN Reason: Protocol Last Admin: 11/25/17 23:39 Dose: Not Given Memantine (Namenda) 5 mg PO BID [facility] Last Admin: 11/25/17 16:56 Dose: 5 mg Methylprednisolone (Solu-Medrol) 60 mg IV Q8 [facility] Last Admin: 11/25/17 16:56 Dose: 60 mg Pantoprazole Sodium (Protonix Ec Tab) 40 mg PO DAILY [facility] Last Admin: 11/25/17 09:34 Dose: 40 mg Rivaroxaban (Xarelto) 15 mg PO DAILY [facility] PRN Reason: Protocol Last Admin: 11/25/17 09:35 Dose: 15 mg Sitagliptin Phosphate (Januvia) 25 mg PO DAILY [facility] Last Admin: 11/25/17 09:32 Dose: 25 mg Spironolactone (Aldactone) 50 mg PO DAILY [facility] Last Admin: 11/25/17 09:31 Dose: 50 mg Valsartan (Diovan) 160 mg PO DAILY [facility] Last Admin: 11/25/17 09:32 Dose: Not Given - Labs Labs: 11/25/17 04:28 11/25/17 04:28 - Eye Exam Eye Exam: Normal appearance - ENT Exam ENT Exam: Mucous Membranes Moist - Respiratory Exam Respiratory Exam: Rales, Rhonchi - Cardiovascular Exam Cardiovascular Exam: REGULAR RHYTHM - GI/Abdominal Exam GI & Abdominal Exam: Normal Bowel Sounds - Neurological Exam Neurological Exam: Awake, Oriented x3 Assessment and Plan (1) Pneumonia Status: Acute (2) COPD exacerbation Status: Acute (3) Chronic congestive heart failure Status: Acute - Assessment and Plan (Free Text) Plan: Cont meds diuresis IV steroids IV antibiotics cont tx Phys therapy
[2017-11-26] MEDS: Albuterol-Ipratrop 3 mg / 0.5 (3 ml) UD INH SCH ×6 (05:08→23:59)
--- NOTE | 2017-11-26 07:45 | CP.PCM.CON ---
History of Present Illness - History of Present Illness History of Present Illness: consult obtained. chart reviewed. echocardiogram ordered. full consult to follow after review of echocardiogram Past Patient History - Infectious Disease Hx of Infectious Diseases: None - Tetanus Immunizations Tetanus Immunization: Unknown - Past Medical History & Family History Past Medical History?: Yes - Past Social History Alcohol: None Drugs: Denies Home Situation {Lives}: Alone - CARDIAC Hx Atrial Fibrillation: Yes Hx Cardia Arrhythmia: Yes Hx Congestive Heart Failure: Yes Hx Hypercholesterolemia: Yes Hx Hypertension: Yes Hx Pacemaker: Yes Hx Peripheral Edema: Yes - PULMONARY Hx Asthma: Yes Hx Bronchitis: Yes Hx Chronic Obstructive Pulmonary Disease (COPD): Yes Hx Pneumonia: Yes - NEUROLOGICAL Hx Dementia: Yes Hx Parkinson's Disease: Yes Hx Transient Ischemic Attacks (TIA): Yes - HEENT Hx HEENT Problems: No - RENAL Hx Chronic Kidney Disease: No - ENDOCRINE/METABOLIC Hx Hypothyroidism: No - HEMATOLOGICAL/ONCOLOGICAL Hx Anemia: Yes Hx Human Immunodeficiency Virus (HIV): No - INTEGUMENTARY Hx Dermatological Problems: No - MUSCULOSKELETAL/RHEUMATOLOGICAL Hx Arthritis: Yes Hx Rheumatoid Arthritis: No - GASTROINTESTINAL Hx Gastritis: Yes - GENITOURINARY/GYNECOLOGICAL Hx Genitourinary Disorders: No - PSYCHIATRIC Hx Anxiety: Yes - SURGICAL HISTORY Hx Appendectomy: Yes Hx Carotid Endarterectomy: Yes Hx Cholecystectomy: Yes Hx Coronary Artery Bypass Graft: Yes - ANESTHESIA Hx Anesthesia: Yes Hx Anesthesia Reactions: No Hx Malignant Hyperthermia: No Meds Allergies/Adverse Reactions: Allergies Allergy/AdvReac Type Severity Reaction Status Date / Time oxycodone Allergy RASH Verified 06/20/17 22:31 - Medications Medications: Current Medications Albuterol/Ipratropium (Duoneb 3 Mg/0.5 Mg (3 Ml) Ud) 3 ml INH RQ3 PRN PRN Reason: Shortness of Breath Albuterol/Ipratropium (Duoneb 3 Mg/0.5 Mg (3 Ml) Ud) 3 ml INH RQ4 [facility] Last Admin: 11/26/17 05:08 Dose: 3 ml Atorvastatin Calcium (Lipitor) 40 mg PO DAILY [facility] Last Admin: 11/25/17 09:33 Dose: 40 mg Carvedilol (Coreg) 12.5 mg PO Q12 [facility] Last Admin: 11/25/17 21:32 Dose: Not Given Clopidogrel Bisulfate (Plavix) 75 mg PO DAILY [facility] Last Admin: 11/25/17 09:34 Dose: 75 mg Dextrose (Dextrose 50% Inj) 0 ml IVP STAT PRN; Protocol PRN Reason: Hypoglycemia Protocol Furosemide (Lasix) 20 mg PO BID [facility] Last Admin: 11/25/17 16:55 Dose: 20 mg Gabapentin (Neurontin) 300 mg PO DAILY [facility] Last Admin: 11/25/17 09:34 Dose: 300 mg Glucagon (Glucagen Diagnostic Kit) 0 mg IM STAT PRN; Protocol PRN Reason: Hypoglycemia Protocol Vancomycin HCl 1 gm/ Sodium (Chloride) 250 mls @ 166.667 mls/hr IVPB DAILY [facility] PRN Reason: Protocol Last Admin: 11/25/17 09:45 Dose: 166.667 mls/hr Piperacillin Sod/Tazobactam (Sod 2.25 gm/ Sodium Chloride) 100 mls @ 100 mls/ hr IVPB Q8 [facility] PRN Reason: Protocol Last Admin: 11/26/17 00:12 Dose: 100 mls/hr Insulin Human Regular (Humulin R) 0 units SC ACCU-CHECK [facility] PRN Reason: Protocol Last Admin: 11/25/17 23:39 Dose: Not Given Memantine (Namenda) 5 mg PO BID [facility] Last Admin: 11/25/17 16:56 Dose: 5 mg Methylprednisolone (Solu-Medrol) 60 mg IV Q8 [facility] Last Admin: 11/26/17 00:11 Dose: 60 mg Pantoprazole Sodium (Protonix Ec Tab) 40 mg PO DAILY [facility] Last Admin: 11/25/17 09:34 Dose: 40 mg Rivaroxaban (Xarelto) 15 mg PO DAILY [facility] PRN Reason: Protocol Last Admin: 11/25/17 09:35 Dose: 15 mg Sitagliptin Phosphate (Januvia) 25 mg PO DAILY [facility] Last Admin: 11/25/17 09:32 Dose: 25 mg Spironolactone (Aldactone) 50 mg PO DAILY [facility] Last Admin: 11/25/17 09:31 Dose: 50 mg Valsartan (Diovan) 160 mg PO DAILY [facility] Last Admin: 11/25/17 09:32 Dose: Not Given Results - Vital Signs Recent Vital Signs: Last Vital Signs Temp 98.3 F 11/25/17 23:29 Pulse 60 11/25/17 23:29 Resp 20 11/25/17 23:29 BP 107/62 11/25/17 23:29 Pulse Ox 100 03/25/18 23:29 - Labs Result Diagrams: 11/25/17 04:28 11/25/17 04:28 Labs: Laboratory Results - last 24 hr 11/23/17 11/25/17 11/25/17 12:19 12:49 16:37 POC Glucose (mg/dL) 193 H 121 H Procalcitonin < 0.05 L 11/25/17 11/26/17 22:00 05:34 POC Glucose (mg/dL) 235 H 198 H Procalcitonin
[2017-11-26] MEDS: Pantoprazole 40 mg EC Tab PO SCH (08:58)
[2017-11-26] MEDS: Insulin Regular 100 units/ml SC SCH ×4 (10:51→22:31)
--- NOTE | 2017-11-26 11:25 | PQF GENQUE ---
Dr. Lawrence, Please specify type of pneumonia in the progress notes: Note: CAP, HAP, and HCAP indicate where the pneumonia was acquired, not a specific type. Aspiration pneumonia Please document specific aspirate (food, liquids, etc.) Please indicate if this is postprocedural Bacterial (specify organism) Bronchopneumonia (specify organism) Interstitual pneumonia Organizing pneumonia/BOOP Pneumonia with influenza, rad flu, or H1N1 flu RSV pneumonia Tuberculosis, pulmonary Viral pneumonia Other pneumonia (specify organism or type) Clinically unable to determine Unknown 2. Please specify the organism causing the pneumonia if known after the work up is completed 11/23 CXR:Impression: Patchy bilateral lower lobe opacities right greater than left may represent infiltrate and/or atelectasis Suspect small bilateral effusions. Interval improvement vascular congestive changes seen on prior study 11/24 CXR: Impression: Pulmonary vascular congestive changes with bilateral lower lobe alveolar-type infiltrates and bilateral effusions sputum culture: result pending IV: Vanco and Piperacillin, [facility], [place] [address] This form is a permanent part of the medical record Clarification of your documentation is requested to better reflect the severity of illness and intensity of treatment of your patient. Indicators present [] Specify: [] [] Specify: [] [] Specify: [] [] Specify: [] Location in the medical record that reflects the above clinical findings: [] Treatment Provided: [] PHYSICIAN'S RESPONSE Based on your medical judgment of the clinical indicators outlined above please clarify the following: [] Practitioner response [] If unable to determine, please check the box, sign and date. Present On Admission (POA) Indicator: [] Present at the time of admission [] Not present at the time of admission [] Clinically Undetermined In responding to this query, please exercise your independent professional judgment. The fact that a question is asked does not imply that any particular answer is desired or expected. Thank you for your clarification on this documentation. If you have any questions please call. * Thank you, Naty Kemp RN ext. #[phone] MTDD
--- NOTE | 2017-11-26 11:53 | CT ---
PROCEDURE: CT Chest without contrast HISTORY: CHF , PNA , COPD COMPARISON: Unenhanced chest CT 06/27/2017. TECHNIQUE: Contiguous axial images were obtained through the chest without intravenous contrast enhancement. Sagittal and coronal reconstructions were performed. Radiation dose (DLP): 384.11 mGy-cm. This CT exam was performed using one or more of the following dose reduction techniques: Automated exposure control, adjustment of the mA and/or kV according to patient size, and/or use of iterative reconstruction technique. FINDINGS: LUNGS: Bilateral dependent and compressive atelectasis is appreciated at the bilateral lower lobes with no definitive alveolitis appreciated bilaterally. Prior bilateral upper lobe and left lower lobe ground-glass opacity appears to have resolved. MEDIASTINUM: Mediastinal lymphadenopathy appears stable including 2.1 cm subcarinal lymph node. The main left and right lobar bronchi a appear somewhat stenosis in short segments with the distal segments more widely patent. Etiology of this finding is unclear as there is not enough lymphadenopathy to account for this pattern. The thoracic aorta are is again seen atherosclerotic but not aneurysmal and post CABG operative changes are again identified in the mediastinum including sternotomy wires in the mediastinum. The thoracic inlet is unremarkable and shotty bilateral axillary lymph nodes are identified. Stable cardiomegaly is noted as well as mitral valve replacement in variable likely coronary artery stents as well as extensive coronary artery atherosclerosis. PLEURA: Diminished or recurrent right pleural effusion now appears mild in overall volume with none identified the left. No pericardial effusion. Compressive atelectasis is exerted at the right lower lobe. Trace left pleural effusion. BONES: No acute compression fracture or destructive bony lesion identified. Multifocal chronic compression fracture again seen involving the thoracic spine. UPPER ABDOMEN: Grossly unremarkable. OTHER FINDINGS: None. IMPRESSION: 1. Mild right pleural effusion exerts compression atelectasis at the right lower lobe with trace of a pleural effusion exerting minimal compression atelectasis at the left lower lobe. Prior bilateral upper and left lower lobe ground-glass opacity appears to have resolved. No new definitive infiltrate bilaterally. 2. Stenosis of the proximal bilateral mainstem bronchi bilaterally with mid and distal segments patent widely. Etiology uncertain although mild mediastinal lymphadenopathy is reiterated. 3. Stable cardiomegaly status post CABG, mitral valve replacement and likely coronary artery stent deployment.
--- NOTE | 2017-11-26 17:42 | CP.PCM.PN ---
Subjective - Date & Time of Evaluation Date of Evaluation: 11/26/17 Time of Evaluation: 13:00 - Subjective Subjective: F/U Respiratory Distress. Pt breathing better, less chest congestion, no SOB, bringing up yellowish phlegms when coughing Objective - Vital Signs/Intake and Output Vital Signs (last 24 hours): Temp Pulse Resp BP Pulse Ox 97.8 F 75 20 118/71 100 11/26/17 16:06 11/26/17 16:06 11/26/17 16:06 11/26/17 17:05 11/26/17 16:06 - Medications Medications: Current Medications Albuterol/Ipratropium (Duoneb 3 Mg/0.5 Mg (3 Ml) Ud) 3 ml INH RQ3 PRN PRN Reason: Shortness of Breath Albuterol/Ipratropium (Duoneb 3 Mg/0.5 Mg (3 Ml) Ud) 3 ml INH RQ4 [facility] Last Admin: 11/26/17 15:40 Dose: 3 ml Atorvastatin Calcium (Lipitor) 40 mg PO DAILY [facility] Last Admin: 11/26/17 08:56 Dose: 40 mg Carvedilol (Coreg) 12.5 mg PO Q12 [facility] Last Admin: 11/26/17 08:48 Dose: Not Given Clopidogrel Bisulfate (Plavix) 75 mg PO DAILY [facility] Last Admin: 11/26/17 08:58 Dose: 75 mg Dextrose (Dextrose 50% Inj) 0 ml IVP STAT PRN; Protocol PRN Reason: Hypoglycemia Protocol Furosemide (Lasix) 20 mg IVP BID [facility] Last Admin: 11/26/17 17:05 Dose: 20 mg Gabapentin (Neurontin) 300 mg PO DAILY [facility] Last Admin: 11/26/17 08:57 Dose: 300 mg Glucagon (Glucagen Diagnostic Kit) 0 mg IM STAT PRN; Protocol PRN Reason: Hypoglycemia Protocol Vancomycin HCl 1 gm/ Sodium (Chloride) 250 mls @ 166.667 mls/hr IVPB DAILY [facility] PRN Reason: Protocol Last Admin: 11/26/17 10:55 Dose: 166.667 mls/hr Piperacillin Sod/Tazobactam (Sod 2.25 gm/ Sodium Chloride) 100 mls @ 100 mls/ hr IVPB Q8 [facility] PRN Reason: Protocol Last Admin: 11/26/17 10:59 Dose: 100 mls/hr Insulin Human Regular (Humulin R) 0 units SC ACCU-CHECK [facility] PRN Reason: Protocol Last Admin: 11/26/17 17:03 Dose: Not Given Memantine (Namenda) 5 mg PO BID [facility] Last Admin: 11/26/17 17:09 Dose: 5 mg Methylprednisolone (Solu-Medrol) 60 mg IV Q8 [facility] Last Admin: 11/26/17 17:11 Dose: 60 mg Pantoprazole Sodium (Protonix Ec Tab) 40 mg PO DAILY [facility] Last Admin: 11/26/17 08:58 Dose: 40 mg Rivaroxaban (Xarelto) 15 mg PO DAILY [facility] PRN Reason: Protocol Last Admin: 11/26/17 09:01 Dose: 15 mg Sitagliptin Phosphate (Januvia) 25 mg PO DAILY [facility] Last Admin: 11/26/17 08:55 Dose: 25 mg Spironolactone (Aldactone) 50 mg PO DAILY [facility] Last Admin: 11/26/17 08:45 Dose: 50 mg Valsartan (Diovan) 160 mg PO DAILY [facility] Last Admin: 11/26/17 08:51 Dose: Not Given - Labs Labs: 11/25/17 04:28 11/25/17 04:28 - Constitutional Appears: Chronically Ill - Head Exam Head Exam: NORMAL INSPECTION - Eye Exam Eye Exam: PERRL - ENT Exam ENT Exam: Normal Exam - Neck Exam Neck Exam: Normal Inspection - Respiratory Exam Respiratory Exam: Decreased Breath Sounds, Rhonchi (b/l) - Cardiovascular Exam Cardiovascular Exam: REGULAR RHYTHM, Murmur (3/6 [place] to axilla.) - GI/Abdominal Exam GI & Abdominal Exam: Soft, Normal Bowel Sounds - Extremities Exam Extremities Exam: Normal Inspection - Back Exam Back Exam: NORMAL INSPECTION - Neurological Exam Neurological Exam: Alert Additional comments: No focal mototr/sensory deficit - Psychiatric Exam Psychiatric exam: Normal Mood - Skin Skin Exam: Warm Assessment and Plan (1) Respiratory distress Status: Acute (2) COPD exacerbation Status: Acute (3) HCAP (healthcare-associated pneumonia) Status: Acute (4) Systolic CHF, acute on chronic Status: Acute (5) Afib Status: Chronic (6) Pacemaker Status: Chronic - Assessment and Plan (Free Text) Plan: F/U Echo, Continue Zosyn, Vanco, Solumedrol, Duoneb and rest of Tx.
--- NOTE | 2017-11-26 19:57 | CP.PCM.CON ---
History of Present Illness - History of Present Illness History of Present Illness: Patient seen/examined echocardiogram reviewed. Normal left ventricular function. There is increase turbulence of across the previous surgical mitral valve. no dehiscence noted. has wheezing on exam. continue bronchodilator therapy. Past Patient History - Infectious Disease Hx of Infectious Diseases: None - Tetanus Immunizations Tetanus Immunization: Unknown - Past Medical History & Family History Past Medical History?: Yes - Past Social History Alcohol: None Drugs: Denies Home Situation {Lives}: Alone - CARDIAC Hx Atrial Fibrillation: Yes Hx Cardia Arrhythmia: Yes Hx Congestive Heart Failure: Yes Hx Hypercholesterolemia: Yes Hx Hypertension: Yes Hx Pacemaker: Yes Hx Peripheral Edema: Yes - PULMONARY Hx Asthma: Yes Hx Bronchitis: Yes Hx Chronic Obstructive Pulmonary Disease (COPD): Yes Hx Pneumonia: Yes - NEUROLOGICAL Hx Dementia: Yes Hx Parkinson's Disease: Yes Hx Transient Ischemic Attacks (TIA): Yes - HEENT Hx HEENT Problems: No - RENAL Hx Chronic Kidney Disease: No - ENDOCRINE/METABOLIC Hx Hypothyroidism: No - HEMATOLOGICAL/ONCOLOGICAL Hx Anemia: Yes Hx Human Immunodeficiency Virus (HIV): No - INTEGUMENTARY Hx Dermatological Problems: No - MUSCULOSKELETAL/RHEUMATOLOGICAL Hx Arthritis: Yes Hx Rheumatoid Arthritis: No - GASTROINTESTINAL Hx Gastritis: Yes - GENITOURINARY/GYNECOLOGICAL Hx Genitourinary Disorders: No - PSYCHIATRIC Hx Anxiety: Yes - SURGICAL HISTORY Hx Appendectomy: Yes Hx Carotid Endarterectomy: Yes Hx Cholecystectomy: Yes Hx Coronary Artery Bypass Graft: Yes - ANESTHESIA Hx Anesthesia: Yes Hx Anesthesia Reactions: No Hx Malignant Hyperthermia: No Meds Allergies/Adverse Reactions: Allergies Allergy/AdvReac Type Severity Reaction Status Date / Time oxycodone Allergy RASH Verified 06/20/17 22:31 - Medications Medications: Current Medications Albuterol/Ipratropium (Duoneb 3 Mg/0.5 Mg (3 Ml) Ud) 3 ml INH RQ3 PRN PRN Reason: Shortness of Breath Albuterol/Ipratropium (Duoneb 3 Mg/0.5 Mg (3 Ml) Ud) 3 ml INH RQ4 [facility] Last Admin: 11/26/17 19:34 Dose: 3 ml Atorvastatin Calcium (Lipitor) 40 mg PO DAILY [facility] Last Admin: 11/26/17 08:56 Dose: 40 mg Carvedilol (Coreg) 12.5 mg PO Q12 [facility] Last Admin: 11/26/17 08:48 Dose: Not Given Clopidogrel Bisulfate (Plavix) 75 mg PO DAILY [facility] Last Admin: 11/26/17 08:58 Dose: 75 mg Dextrose (Dextrose 50% Inj) 0 ml IVP STAT PRN; Protocol PRN Reason: Hypoglycemia Protocol Furosemide (Lasix) 20 mg IVP BID [facility] Last Admin: 11/26/17 17:05 Dose: 20 mg Gabapentin (Neurontin) 300 mg PO DAILY [facility] Last Admin: 11/26/17 08:57 Dose: 300 mg Glucagon (Glucagen Diagnostic Kit) 0 mg IM STAT PRN; Protocol PRN Reason: Hypoglycemia Protocol Vancomycin HCl 1 gm/ Sodium (Chloride) 250 mls @ 166.667 mls/hr IVPB DAILY [facility] PRN Reason: Protocol Last Admin: 11/26/17 10:55 Dose: 166.667 mls/hr Piperacillin Sod/Tazobactam (Sod 2.25 gm/ Sodium Chloride) 100 mls @ 100 mls/ hr IVPB Q8@0500,1300,2100 [facility] PRN Reason: Protocol Insulin Human Regular (Humulin R) 0 units SC ACCU-CHECK [facility] PRN Reason: Protocol Last Admin: 11/26/17 17:03 Dose: Not Given Memantine (Namenda) 5 mg PO BID [facility] Last Admin: 11/26/17 17:09 Dose: 5 mg Methylprednisolone (Solu-Medrol) 60 mg IV Q8 [facility] Last Admin: 11/26/17 17:11 Dose: 60 mg Pantoprazole Sodium (Protonix Ec Tab) 40 mg PO DAILY [facility] Last Admin: 11/26/17 08:58 Dose: 40 mg Rivaroxaban (Xarelto) 15 mg PO DAILY [facility] PRN Reason: Protocol Last Admin: 11/26/17 09:01 Dose: 15 mg Sitagliptin Phosphate (Januvia) 25 mg PO DAILY [facility] Last Admin: 11/26/17 08:55 Dose: 25 mg Spironolactone (Aldactone) 50 mg PO DAILY [facility] Last Admin: 11/26/17 08:45 Dose: 50 mg Valsartan (Diovan) 160 mg PO DAILY [facility] Last Admin: 11/26/17 08:51 Dose: Not Given Results - Vital Signs Recent Vital Signs: Last Vital Signs Temp 97.8 F 11/26/17 16:06 Pulse 75 11/26/17 16:06 Resp 20 11/26/17 16:06 BP 118/71 11/26/17 17:05 Pulse Ox 100 11/26/17 16:06 - Labs Result Diagrams: 11/25/17 04:28 11/25/17 04:28 Labs: Laboratory Results - last 24 hr 11/25/17 11/26/17 11/26/17 22:00 05:34 10:52 POC Glucose (mg/dL) 235 H 198 H 199 H 11/26/17 15:48 POC Glucose (mg/dL) 137 H
--- NOTE | 2017-11-26 19:57 | CP.PCM.CON ---
Past Patient History - Infectious Disease Hx of Infectious Diseases: None - Tetanus Immunizations Tetanus Immunization: Unknown - Past Medical History & Family History Past Medical History?: Yes - Past Social History Alcohol: None Drugs: Denies Home Situation {Lives}: Alone - CARDIAC Hx Atrial Fibrillation: Yes Hx Cardia Arrhythmia: Yes Hx Congestive Heart Failure: Yes Hx Hypercholesterolemia: Yes Hx Hypertension: Yes Hx Pacemaker: Yes Hx Peripheral Edema: Yes - PULMONARY Hx Asthma: Yes Hx Bronchitis: Yes Hx Chronic Obstructive Pulmonary Disease (COPD): Yes Hx Pneumonia: Yes - NEUROLOGICAL Hx Dementia: Yes Hx Parkinson's Disease: Yes Hx Transient Ischemic Attacks (TIA): Yes - HEENT Hx HEENT Problems: No - RENAL Hx Chronic Kidney Disease: No - ENDOCRINE/METABOLIC Hx Hypothyroidism: No - HEMATOLOGICAL/ONCOLOGICAL Hx Anemia: Yes Hx Human Immunodeficiency Virus (HIV): No - INTEGUMENTARY Hx Dermatological Problems: No - MUSCULOSKELETAL/RHEUMATOLOGICAL Hx Arthritis: Yes Hx Rheumatoid Arthritis: No - GASTROINTESTINAL Hx Gastritis: Yes - GENITOURINARY/GYNECOLOGICAL Hx Genitourinary Disorders: No - PSYCHIATRIC Hx Anxiety: Yes - SURGICAL HISTORY Hx Appendectomy: Yes Hx Carotid Endarterectomy: Yes Hx Cholecystectomy: Yes Hx Coronary Artery Bypass Graft: Yes - ANESTHESIA Hx Anesthesia: Yes Hx Anesthesia Reactions: No Hx Malignant Hyperthermia: No Meds Allergies/Adverse Reactions: Allergies Allergy/AdvReac Type Severity Reaction Status Date / Time oxycodone Allergy RASH Verified 06/20/17 22:31 - Medications Medications: Current Medications Albuterol/Ipratropium (Duoneb 3 Mg/0.5 Mg (3 Ml) Ud) 3 ml INH RQ3 PRN PRN Reason: Shortness of Breath Albuterol/Ipratropium (Duoneb 3 Mg/0.5 Mg (3 Ml) Ud) 3 ml INH RQ4 [facility] Last Admin: 11/26/17 19:34 Dose: 3 ml Atorvastatin Calcium (Lipitor) 40 mg PO DAILY [facility] Last Admin: 11/26/17 08:56 Dose: 40 mg Carvedilol (Coreg) 12.5 mg PO Q12 [facility] Last Admin: 11/26/17 08:48 Dose: Not Given Clopidogrel Bisulfate (Plavix) 75 mg PO DAILY [facility] Last Admin: 11/26/17 08:58 Dose: 75 mg Dextrose (Dextrose 50% Inj) 0 ml IVP STAT PRN; Protocol PRN Reason: Hypoglycemia Protocol Furosemide (Lasix) 20 mg IVP BID [facility] Last Admin: 11/26/17 17:05 Dose: 20 mg Gabapentin (Neurontin) 300 mg PO DAILY [facility] Last Admin: 11/26/17 08:57 Dose: 300 mg Glucagon (Glucagen Diagnostic Kit) 0 mg IM STAT PRN; Protocol PRN Reason: Hypoglycemia Protocol Vancomycin HCl 1 gm/ Sodium (Chloride) 250 mls @ 166.667 mls/hr IVPB DAILY [facility] PRN Reason: Protocol Last Admin: 11/26/17 10:55 Dose: 166.667 mls/hr Piperacillin Sod/Tazobactam (Sod 2.25 gm/ Sodium Chloride) 100 mls @ 100 mls/ hr IVPB Q8@0500,1300,2100 [facility] PRN Reason: Protocol Insulin Human Regular (Humulin R) 0 units SC ACCU-CHECK [facility] PRN Reason: Protocol Last Admin: 11/26/17 17:03 Dose: Not Given Memantine (Namenda) 5 mg PO BID [facility] Last Admin: 11/26/17 17:09 Dose: 5 mg Methylprednisolone (Solu-Medrol) 60 mg IV Q8 [facility] Last Admin: 11/26/17 17:11 Dose: 60 mg Pantoprazole Sodium (Protonix Ec Tab) 40 mg PO DAILY [facility] Last Admin: 11/26/17 08:58 Dose: 40 mg Rivaroxaban (Xarelto) 15 mg PO DAILY [facility] PRN Reason: Protocol Last Admin: 11/26/17 09:01 Dose: 15 mg Sitagliptin Phosphate (Januvia) 25 mg PO DAILY [facility] Last Admin: 11/26/17 08:55 Dose: 25 mg Spironolactone (Aldactone) 50 mg PO DAILY [facility] Last Admin: 11/26/17 08:45 Dose: 50 mg Valsartan (Diovan) 160 mg PO DAILY [facility] Last Admin: 11/26/17 08:51 Dose: Not Given Results - Vital Signs Recent Vital Signs: Last Vital Signs Temp 97.8 F 11/26/17 16:06 Pulse 75 11/26/17 16:06 Resp 20 11/26/17 16:06 BP 118/71 11/26/17 17:05 Pulse Ox 100 11/26/17 16:06 - Labs Result Diagrams: 11/25/17 04:28 11/25/17 04:28 Labs: Laboratory Results - last 24 hr 11/25/17 11/26/17 11/26/17 22:00 05:34 10:52 POC Glucose (mg/dL) 235 H 198 H 199 H 11/26/17 15:48 POC Glucose (mg/dL) 137 H
--- NOTE | 2017-11-26 22:19 | CP.PCM.PN ---
Subjective - Date & Time of Evaluation Date of Evaluation: 11/26/17 Time of Evaluation: 10:30 - Subjective Subjective: Patient has less cough and wheezing. Has no fever. CT scan of the chest showed improvement of infiltrate. Objective - Vital Signs/Intake and Output Vital Signs (last 24 hours): Temp Pulse Resp BP Pulse Ox 97.8 F 79 20 123/73 100 11/26/17 16:06 11/26/17 20:59 11/26/17 16:06 11/26/17 20:59 11/26/17 16:06 - Medications Medications: Current Medications Albuterol/Ipratropium (Duoneb 3 Mg/0.5 Mg (3 Ml) Ud) 3 ml INH RQ3 PRN PRN Reason: Shortness of Breath Albuterol/Ipratropium (Duoneb 3 Mg/0.5 Mg (3 Ml) Ud) 3 ml INH RQ4 [facility] Last Admin: 11/26/17 19:34 Dose: 3 ml Atorvastatin Calcium (Lipitor) 40 mg PO DAILY [facility] Last Admin: 11/26/17 08:56 Dose: 40 mg Carvedilol (Coreg) 12.5 mg PO Q12 [facility] Last Admin: 11/26/17 20:59 Dose: 12.5 mg Clopidogrel Bisulfate (Plavix) 75 mg PO DAILY [facility] Last Admin: 11/26/17 08:58 Dose: 75 mg Dextrose (Dextrose 50% Inj) 0 ml IVP STAT PRN; Protocol PRN Reason: Hypoglycemia Protocol Furosemide (Lasix) 20 mg IVP BID [facility] Last Admin: 11/26/17 17:05 Dose: 20 mg Gabapentin (Neurontin) 300 mg PO DAILY [facility] Last Admin: 11/26/17 08:57 Dose: 300 mg Glucagon (Glucagen Diagnostic Kit) 0 mg IM STAT PRN; Protocol PRN Reason: Hypoglycemia Protocol Vancomycin HCl 1 gm/ Sodium (Chloride) 250 mls @ 166.667 mls/hr IVPB DAILY [facility] PRN Reason: Protocol Last Admin: 11/26/17 10:55 Dose: 166.667 mls/hr Piperacillin Sod/Tazobactam (Sod 2.25 gm/ Sodium Chloride) 100 mls @ 100 mls/ hr IVPB Q8@0500,1300,2100 [facility] PRN Reason: Protocol Last Admin: 11/26/17 21:00 Dose: 100 mls/hr Insulin Human Regular (Humulin R) 0 units SC ACCU-CHECK [facility] PRN Reason: Protocol Last Admin: 11/26/17 17:03 Dose: Not Given Memantine (Namenda) 5 mg PO BID [facility] Last Admin: 11/26/17 17:09 Dose: 5 mg Methylprednisolone (Solu-Medrol) 60 mg IV Q8 [facility] Last Admin: 11/26/17 17:11 Dose: 60 mg Pantoprazole Sodium (Protonix Ec Tab) 40 mg PO DAILY [facility] Last Admin: 11/26/17 08:58 Dose: 40 mg Rivaroxaban (Xarelto) 15 mg PO DAILY [facility] PRN Reason: Protocol Last Admin: 11/26/17 09:01 Dose: 15 mg Sitagliptin Phosphate (Januvia) 25 mg PO DAILY [facility] Last Admin: 11/26/17 08:55 Dose: 25 mg Spironolactone (Aldactone) 50 mg PO DAILY [facility] Last Admin: 11/26/17 08:45 Dose: 50 mg Valsartan (Diovan) 160 mg PO DAILY [facility] Last Admin: 11/26/17 08:51 Dose: Not Given - Labs Labs: 11/25/17 04:28 11/25/17 04:28 - Head Exam Head Exam: NORMAL INSPECTION - Respiratory Exam Respiratory Exam: Decreased Breath Sounds - Cardiovascular Exam Cardiovascular Exam: Irregular Rhythm - GI/Abdominal Exam GI & Abdominal Exam: Normal Bowel Sounds - Neurological Exam Neurological Exam: Awake, Oriented x3 Assessment and Plan (1) Pneumonia Status: Acute (2) COPD exacerbation Status: Acute (3) Systolic CHF, acute on chronic Status: Acute - Assessment and Plan (Free Text) Plan: Plan cont meds Cont tx Cont neb tx phys therapy
--- NOTE | 2017-11-26 22:20 | CARD ---
APPROVED REPORT EXAM: Two-dimensional and M-mode echocardiogram with Doppler and color Doppler. Other Information Quality : GoodRhythm : NSR INDICATION Atrial Fibrillation Congestive Heart Failure Surgery/Intervention Status/Post Mitral Valve Replacement: Mechanical Pacemaker: 2D DIMENSIONS LVEF (%)50.0 (>50%) M-Mode DIMENSIONS Left Atrium (MM)5.29 (2.5-4.0cm)IVSd1.00 (0.7-1.1cm) Aortic Root2.94 (2.2-3.7cm)LVDd4.97 (4.0-5.6cm) Aortic Cusp Exc.1.62 (1.5-2.0cm)PWd0.85 (0.7-1.1cm) IVSs1.47 cmFS (%) 50 % LVDs2.47 (2.0-3.8cm)PWs1.74 cm Mitral Valve E/A ratio0.0 TDI E/Lateral E'0.0E/Medial E'0.0 Tricuspid Valve TR Peak [id number] [id number] Peak Gr.42mmHg [id number] LEFT VENTRICLE The left ventricle is normal size. There is normal left ventricular wall thickness. Left ventricle systolic function is borderline. Apical motion consistent with pacemaker activation. A Fib No left ventricle thrombus noted on this study. RIGHT VENTRICLE The right ventricle is moderately dilated. There is normal right ventricular wall thickness. Systolic function is moderately reduced. ATRIA The left atrium is severely dilated. The right atrium is severely dilated. AORTIC VALVE The aortic valve is not well visualized. No aortic regurgitation is present. There is no aortic valvular stenosis. MITRAL VALVE The prosthetic mitral valve is not well visualized due to imaging artifacts from the prosthesis. There is no mitral valve stenosis. Consider moderate Paravalvular leak TRICUSPID VALVE The tricuspid valve is normal in structure. There is moderate tricuspid regurgitation. There is moderate pulmonary hypertension. PULMONIC VALVE The pulmonary valve is normal in structure. There is no pulmonic valvular regurgitation. GREAT VESSELS The aortic root is normal in size. The IVC is normal in size and collapses >50% with inspiration. PERICARDIAL EFFUSION The pericardium appears normal. <Conclusion> The left ventricle is normal size. There is normal left ventricular wall thickness. Left ventricle systolic function is borderline. Apical motion consistent with pacemaker activation. The right ventricle is moderately dilated.Systolic function is moderately reduced. The prosthetic mitral valve is not well visualized due to imaging artifacts from the prosthesis. Consider moderate Paravalvular leak There is moderate tricuspid regurgitation.There is moderate pulmonary hypertension.
[2017-11-27] MEDS: Albuterol-Ipratrop 3 mg / 0.5 (3 ml) UD INH SCH ×5 (04:41→19:15)
[2017-11-27] MEDS: Pantoprazole 40 mg EC Tab PO SCH (08:58)
[2017-11-27] MEDS: Insulin Regular 100 units/ml SC SCH ×4 (09:00→22:33)
[2017-11-27 10:04] LABS: MEAN CELL VOLUME 91.6 fl (81.0-99.0); MEAN CORPUSCULAR HEMOGLOBIN 28.8 pg (27.0-31.0); MEAN CORPUSCULAR HGB CONC 31.4 g/dL (33.0-37.0); RBC 3.47 Mil/uL (3.80-5.20); RED CELL DISTRIBUTION WIDTH 16.1 % (11.5-14.5); WHITE BLOOD COUNT 7.6 K/uL (4.8-10.8)
[2017-11-27 10:20] LABS: CALCIUM 8.8 mg/dL (8.4-10.2)
--- NOTE | 2017-11-27 12:23 | CP.PCM.PN ---
Objective - Vital Signs/Intake and Output Vital Signs (last 24 hours): Temp Pulse Resp BP Pulse Ox 98.0 F 63 18 122/71 100 11/27/17 07:45 11/27/17 08:59 11/27/17 07:45 11/27/17 09:00 11/27/17 07:45 - Medications Medications: Current Medications Albuterol/Ipratropium (Duoneb 3 Mg/0.5 Mg (3 Ml) Ud) 3 ml INH RQ3 PRN PRN Reason: Shortness of Breath Albuterol/Ipratropium (Duoneb 3 Mg/0.5 Mg (3 Ml) Ud) 3 ml INH RQ4 [facility] Last Admin: 11/27/17 11:13 Dose: 3 ml Atorvastatin Calcium (Lipitor) 40 mg PO DAILY [facility] Last Admin: 11/27/17 08:57 Dose: 40 mg Carvedilol (Coreg) 12.5 mg PO Q12 [facility] Last Admin: 11/27/17 08:59 Dose: 12.5 mg Clopidogrel Bisulfate (Plavix) 75 mg PO DAILY [facility] Last Admin: 11/27/17 08:56 Dose: 75 mg Dextrose (Dextrose 50% Inj) 0 ml IVP STAT PRN; Protocol PRN Reason: Hypoglycemia Protocol Furosemide (Lasix) 20 mg IVP BID [facility] Last Admin: 11/27/17 09:00 Dose: 20 mg Gabapentin (Neurontin) 300 mg PO DAILY [facility] Last Admin: 11/27/17 08:57 Dose: 300 mg Glucagon (Glucagen Diagnostic Kit) 0 mg IM STAT PRN; Protocol PRN Reason: Hypoglycemia Protocol Vancomycin HCl 1 gm/ Sodium (Chloride) 250 mls @ 166.667 mls/hr IVPB DAILY [facility] PRN Reason: Protocol Last Admin: 11/27/17 08:54 Dose: 166.667 mls/hr Piperacillin Sod/Tazobactam (Sod 2.25 gm/ Sodium Chloride) 100 mls @ 100 mls/ hr IVPB Q8@0500,1300,2100 [facility] PRN Reason: Protocol Last Admin: 11/27/17 04:02 Dose: 100 mls/hr Insulin Human Regular (Humulin R) 0 units SC ACCU-CHECK [facility] PRN Reason: Protocol Last Admin: 11/27/17 09:00 Dose: 1 unit Memantine (Namenda) 5 mg PO BID [facility] Last Admin: 11/27/17 08:59 Dose: 5 mg Methylprednisolone (Solu-Medrol) 60 mg IV Q8 [facility] Last Admin: 11/27/17 09:12 Dose: 60 mg Pantoprazole Sodium (Protonix Ec Tab) 40 mg PO DAILY [facility] Last Admin: 11/27/17 08:58 Dose: 40 mg Rivaroxaban (Xarelto) 15 mg PO DAILY [facility] PRN Reason: Protocol Last Admin: 11/27/17 08:58 Dose: 15 mg Sitagliptin Phosphate (Januvia) 25 mg PO DAILY [facility] Last Admin: 11/27/17 08:59 Dose: 25 mg Spironolactone (Aldactone) 50 mg PO DAILY [facility] Last Admin: 11/27/17 08:58 Dose: 50 mg Valsartan (Diovan) 160 mg PO DAILY [facility] Last Admin: 11/27/17 08:58 Dose: 160 mg - Labs Labs: 11/27/17 09:45 11/27/17 09:45
--- NOTE | 2017-11-27 12:34 | CP.PCM.PCO ---
Physician Communication Note - Physician Communication Note Physician Communication Note: Pt will need IV antibiotics for 7 more days in TCU
--- NOTE | 2017-11-27 14:00 | CP.PCM.PN ---
Subjective - Date & Time of Evaluation Date of Evaluation: 11/27/17 Time of Evaluation: 10:15 - Subjective Subjective: Stable. Generally improved. More talkative and able to speak full sentences. No acute distress. Denies CP or palpitations. SOB minimal. Objective - Vital Signs/Intake and Output Vital Signs (last 24 hours): Temp Pulse Resp BP Pulse Ox 98.0 F 63 18 122/71 100 11/27/17 07:45 11/27/17 08:59 11/27/17 07:45 11/27/17 09:00 11/27/17 07:45 - Medications Medications: Current Medications Albuterol/Ipratropium (Duoneb 3 Mg/0.5 Mg (3 Ml) Ud) 3 ml INH RQ3 PRN PRN Reason: Shortness of Breath Albuterol/Ipratropium (Duoneb 3 Mg/0.5 Mg (3 Ml) Ud) 3 ml INH RQ4 [facility] Last Admin: 11/27/17 11:13 Dose: 3 ml Atorvastatin Calcium (Lipitor) 40 mg PO DAILY [facility] Last Admin: 11/27/17 08:57 Dose: 40 mg Carvedilol (Coreg) 12.5 mg PO Q12 [facility] Last Admin: 11/27/17 08:59 Dose: 12.5 mg Clopidogrel Bisulfate (Plavix) 75 mg PO DAILY [facility] Last Admin: 11/27/17 08:56 Dose: 75 mg Dextrose (Dextrose 50% Inj) 0 ml IVP STAT PRN; Protocol PRN Reason: Hypoglycemia Protocol Furosemide (Lasix) 20 mg IVP BID [facility] Last Admin: 11/27/17 09:00 Dose: 20 mg Gabapentin (Neurontin) 300 mg PO DAILY [facility] Last Admin: 11/27/17 08:57 Dose: 300 mg Glucagon (Glucagen Diagnostic Kit) 0 mg IM STAT PRN; Protocol PRN Reason: Hypoglycemia Protocol Vancomycin HCl 1 gm/ Sodium (Chloride) 250 mls @ 166.667 mls/hr IVPB DAILY [facility] PRN Reason: Protocol Last Admin: 11/27/17 08:54 Dose: 166.667 mls/hr Piperacillin Sod/Tazobactam (Sod 2.25 gm/ Sodium Chloride) 100 mls @ 100 mls/ hr IVPB Q8@0500,1300,2100 [facility] PRN Reason: Protocol Last Admin: 11/27/17 04:02 Dose: 100 mls/hr Insulin Human Regular (Humulin R) 0 units SC ACCU-CHECK [facility] PRN Reason: Protocol Last Admin: 11/27/17 09:00 Dose: 1 unit Memantine (Namenda) 5 mg PO BID [facility] Last Admin: 11/27/17 08:59 Dose: 5 mg Methylprednisolone (Solu-Medrol) 60 mg IV Q8 [facility] Last Admin: 11/27/17 09:12 Dose: 60 mg Pantoprazole Sodium (Protonix Ec Tab) 40 mg PO DAILY [facility] Last Admin: 11/27/17 08:58 Dose: 40 mg Rivaroxaban (Xarelto) 15 mg PO DAILY [facility] PRN Reason: Protocol Last Admin: 11/27/17 08:58 Dose: 15 mg Sitagliptin Phosphate (Januvia) 25 mg PO DAILY [facility] Last Admin: 11/27/17 08:59 Dose: 25 mg Spironolactone (Aldactone) 50 mg PO DAILY [facility] Last Admin: 11/27/17 08:58 Dose: 50 mg Valsartan (Diovan) 160 mg PO DAILY [facility] Last Admin: 11/27/17 08:58 Dose: 160 mg - Labs Labs: 11/27/17 09:45 11/27/17 09:45 - Constitutional Appears: Non-toxic, No Acute Distress, Chronically Ill - Eye Exam Eye Exam: PERRL - ENT Exam ENT Exam: Mucous Membranes Moist - Respiratory Exam Respiratory Exam: Rales (L/lung scant), Rhonchi, NORMAL BREATHING PATTERN. absent: Wheezes, Respiratory Distress - Cardiovascular Exam Cardiovascular Exam: REGULAR RHYTHM, +S1, +S2. absent: Gallop - GI/Abdominal Exam GI & Abdominal Exam: Soft, Normal Bowel Sounds. absent: Distended, Firm, Guarding, Rigid, Tenderness, Rebound - Extremities Exam Extremities Exam: Normal Capillary Refill, Pedal Edema (trace). absent: Calf Tenderness - Neurological Exam Neurological Exam: Alert, Awake, Oriented x3 - Psychiatric Exam Psychiatric exam: Normal Affect, Normal Mood - Skin Skin Exam: Normal Color, Warm Assessment and Plan - Assessment and Plan (Free Text) Assessment: C/W IV abx for 7 days as per recs Pulm consult appreciated Cardio consult appreciated C/W Lasix BID markedly improved C/w Current management Poss transfer to TCU or [facility] to c/w treatment
--- NOTE | 2017-11-27 14:41 | IP.NPCORE ---
Pneumonia Progress Notes - Oxygenation Assessment (REQUIRED) Documented 02: Yes Oxygen Delivery Method: Nasal Cannula Documented P02: Yes
[2017-11-28] MEDS: Albuterol-Ipratrop 3 mg / 0.5 (3 ml) UD INH SCH ×7 (00:17→23:52)
[2017-11-28] MEDS: Insulin Regular 100 units/ml SC SCH ×3 (08:54→17:16)
[2017-11-28] MEDS: Pantoprazole 40 mg EC Tab PO SCH (08:59)
--- NOTE | 2017-11-28 15:25 | CP.PCM.PN ---
Subjective - Date & Time of Evaluation Date of Evaluation: 11/28/17 Time of Evaluation: 08:15 - Subjective Subjective: F/U Respiratory Distress. Pt breathing better, less chest congestion, bringing up scanty amount of phlegms , Pt able to ambulate around bed with PT with O2 without SOB. Objective - Vital Signs/Intake and Output Vital Signs (last 24 hours): Temp Pulse Resp BP Pulse Ox 99.4 F 65 20 111/71 97 11/28/17 00:27 11/28/17 08:53 11/28/17 00:27 11/28/17 08:55 11/28/17 00:27 - Medications Medications: Current Medications Albuterol/Ipratropium (Duoneb 3 Mg/0.5 Mg (3 Ml) Ud) 3 ml INH RQ3 PRN PRN Reason: Shortness of Breath Albuterol/Ipratropium (Duoneb 3 Mg/0.5 Mg (3 Ml) Ud) 3 ml INH RQ4 [facility] Last Admin: 11/28/17 15:11 Dose: 3 ml Atorvastatin Calcium (Lipitor) 40 mg PO DAILY [facility] Last Admin: 11/28/17 08:57 Dose: 40 mg Carvedilol (Coreg) 12.5 mg PO Q12 [facility] Last Admin: 11/28/17 08:53 Dose: 12.5 mg Clopidogrel Bisulfate (Plavix) 75 mg PO DAILY [facility] Last Admin: 11/28/17 08:58 Dose: 75 mg Dextrose (Dextrose 50% Inj) 0 ml IVP STAT PRN; Protocol PRN Reason: Hypoglycemia Protocol Furosemide (Lasix) 20 mg IVP BID [facility] Last Admin: 11/28/17 08:55 Dose: 20 mg Gabapentin (Neurontin) 300 mg PO DAILY [facility] Last Admin: 11/28/17 08:58 Dose: 300 mg Glucagon (Glucagen Diagnostic Kit) 0 mg IM STAT PRN; Protocol PRN Reason: Hypoglycemia Protocol Piperacillin Sod/Tazobactam (Sod 2.25 gm/ Sodium Chloride) 100 mls @ 100 mls/ hr IVPB Q8@0500,1300,2100 [facility] PRN Reason: Protocol Last Admin: 11/28/17 12:37 Dose: 100 mls/hr Insulin Human Regular (Humulin R) 0 units SC ACCU-CHECK [facility] PRN Reason: Protocol Last Admin: 11/28/17 12:38 Dose: 2 unit Memantine (Namenda) 5 mg PO BID [facility] Last Admin: 11/28/17 08:58 Dose: 5 mg Pantoprazole Sodium (Protonix Ec Tab) 40 mg PO DAILY [facility] Last Admin: 11/28/17 08:59 Dose: 40 mg Prednisone (Prednisone Tab) 40 mg PO DAILY [facility] Rivaroxaban (Xarelto) 15 mg PO DAILY [facility] PRN Reason: Protocol Last Admin: 11/28/17 09:02 Dose: 15 mg Sitagliptin Phosphate (Januvia) 25 mg PO DAILY [facility] Last Admin: 11/28/17 08:55 Dose: 25 mg Spironolactone (Aldactone) 50 mg PO DAILY [facility] Last Admin: 11/28/17 08:52 Dose: 50 mg Valsartan (Diovan) 160 mg PO DAILY [facility] Last Admin: 11/28/17 08:54 Dose: 160 mg - Labs Labs: 11/27/17 09:45 11/27/17 09:45 Assessment and Plan (1) Respiratory distress Status: Acute (2) COPD exacerbation Status: Acute (3) HCAP (healthcare-associated pneumonia) Status: Acute (4) Systolic CHF, acute on chronic Status: Chronic (5) Afib Status: Chronic (6) Pacemaker Status: Chronic - Assessment and Plan (Free Text) Plan: CT Chest, shows improvement, suggested to continue Steroids and abx, cleopatra CASEY.
--- NOTE | 2017-11-28 21:03 | CP.PCM.PN ---
Subjective - Date & Time of Evaluation Date of Evaluation: 11/28/17 Time of Evaluation: 11:00 - Subjective Subjective: Evaluated this morning during rounds. Significantly improved clinically. SOB on exertion. Denies CP, palpitations, changes in urination or stools. Objective - Vital Signs/Intake and Output Vital Signs (last 24 hours): Temp Pulse Resp BP Pulse Ox 97.1 F L 65 20 126/79 100 11/28/17 16:13 11/28/17 16:13 11/28/17 16:13 11/28/17 17:17 11/28/17 16:13 - Medications Medications: Current Medications Albuterol/Ipratropium (Duoneb 3 Mg/0.5 Mg (3 Ml) Ud) 3 ml INH RQ3 PRN PRN Reason: Shortness of Breath Albuterol/Ipratropium (Duoneb 3 Mg/0.5 Mg (3 Ml) Ud) 3 ml INH RQ4 [facility] Last Admin: 11/28/17 19:59 Dose: 3 ml Atorvastatin Calcium (Lipitor) 40 mg PO DAILY [facility] Last Admin: 11/28/17 08:57 Dose: 40 mg Carvedilol (Coreg) 12.5 mg PO Q12 [facility] Last Admin: 11/28/17 08:53 Dose: 12.5 mg Clopidogrel Bisulfate (Plavix) 75 mg PO DAILY [facility] Last Admin: 11/28/17 08:58 Dose: 75 mg Dextrose (Dextrose 50% Inj) 0 ml IVP STAT PRN; Protocol PRN Reason: Hypoglycemia Protocol Furosemide (Lasix) 20 mg IVP BID [facility] Last Admin: 11/28/17 17:17 Dose: 20 mg Gabapentin (Neurontin) 300 mg PO DAILY [facility] Last Admin: 11/28/17 08:58 Dose: 300 mg Glucagon (Glucagen Diagnostic Kit) 0 mg IM STAT PRN; Protocol PRN Reason: Hypoglycemia Protocol Piperacillin Sod/Tazobactam (Sod 2.25 gm/ Sodium Chloride) 100 mls @ 100 mls/ hr IVPB Q8@0500,1300,2100 [facility] PRN Reason: Protocol Last Admin: 11/28/17 12:37 Dose: 100 mls/hr Insulin Human Regular (Humulin R) 0 units SC ACCU-CHECK [facility] PRN Reason: Protocol Last Admin: 11/28/17 17:16 Dose: Not Given Memantine (Namenda) 5 mg PO BID [facility] Last Admin: 11/28/17 17:20 Dose: 5 mg Pantoprazole Sodium (Protonix Ec Tab) 40 mg PO DAILY [facility] Last Admin: 11/28/17 08:59 Dose: 40 mg Prednisone (Prednisone Tab) 40 mg PO DAILY [facility] Rivaroxaban (Xarelto) 15 mg PO DAILY [facility] PRN Reason: Protocol Last Admin: 11/28/17 09:02 Dose: 15 mg Sitagliptin Phosphate (Januvia) 25 mg PO DAILY [facility] Last Admin: 11/28/17 08:55 Dose: 25 mg Spironolactone (Aldactone) 50 mg PO DAILY [facility] Last Admin: 11/28/17 08:52 Dose: 50 mg Valsartan (Diovan) 160 mg PO DAILY [facility] Last Admin: 11/28/17 08:54 Dose: 160 mg - Labs Labs: 11/27/17 09:45 11/27/17 09:45 - Constitutional Appears: Non-toxic, No Acute Distress - Head Exam Head Exam: NORMAL INSPECTION - Eye Exam Eye Exam: EOMI, PERRL - ENT Exam ENT Exam: Mucous Membranes Moist - Respiratory Exam Respiratory Exam: Rhonchi, NORMAL BREATHING PATTERN. absent: Decreased Breath Sounds, Rales, Wheezes, Respiratory Distress - Cardiovascular Exam Cardiovascular Exam: REGULAR RHYTHM, +S1, +S2. absent: Gallop - GI/Abdominal Exam GI & Abdominal Exam: Soft, Normal Bowel Sounds. absent: Distended, Firm, Guarding, Rigid, Tenderness, Rebound - Neurological Exam Neurological Exam: Alert, Awake, Oriented x3 - Psychiatric Exam Psychiatric exam: Normal Affect, Normal Mood - Skin Skin Exam: Normal Color, Warm Assessment and Plan - Assessment and Plan (Free Text) Assessment: COPD exacerbation with suspected pneumonia significantly improved clinically C/O Duoneb PRN Steroids switched to PO C/W Abx Anticipated DC tomorrow
[2017-11-29] MEDS: Insulin Regular 100 units/ml SC SCH ×4 (04:01→16:09)
[2017-11-29] MEDS: Albuterol-Ipratrop 3 mg / 0.5 (3 ml) UD INH SCH ×4 (04:05→15:12)
[2017-11-29] MEDS: Pantoprazole 40 mg EC Tab PO SCH (08:38)
--- NOTE | 2017-11-29 12:30 | CP.PCM.DIS ---
Provider - Provider Date of Admission: 11/23/17 08:22 Attending physician: Juan A Lawrence MD Primary care physician: Juan A Lawrence MD Consults: Pulmonology Cardiology Time Spent in preparation of Discharge (in minutes): 35 Diagnosis - Discharge Diagnosis (1) COPD exacerbation Status: Acute (2) HCAP (healthcare-associated pneumonia) Status: Acute (3) Systolic CHF, acute on chronic Status: Chronic (4) Afib Status: Chronic Hospital Course - Lab Results Lab Results: Micro Results 11/23/17 06:59 Blood-Venous Blood Culture - Final NO GROWTH AFTER 5 DAYS 11/25/17 07:55 Sputum Induced Gram Stain - Final 11/25/17 07:55 Sputum Induced Sputum Culture - Final NORMAL ORAL WEI 11/24/17 08:00 Naris MRSA Culture (Admit) - Final MRSA NOT DETECTED 11/23/17 11:45 Urine,Clean Catch Urine Culture - Final Klebsiella Pneumoniae Ssp Pneu Most Recent Lab Values WBC 7.6 K/uL (4.8-10.8) 11/27/17 09:45 RBC 3.47 Mil/uL (3.80-5.20) L 11/27/17 09:45 Hgb 10.0 g/dL (12.0-16.0) L 11/27/17 09:45 Hct 31.8 % (34.0-47.0) L 11/27/17 09:45 MCV 91.6 fl (81.0-99.0) 11/27/17 09:45 MCH 28.8 pg (27.0-31.0) 11/27/17 09:45 MCHC 31.4 g/dL (33.0-37.0) L 11/27/17 09:45 RDW 16.1 % (11.5-14.5) H 11/27/17 09:45 Plt Count 175 K/uL (130-400) 11/27/17 09:45 MPV 10.9 fl (7.2-11.7) 11/24/17 06:30 Neut % (Auto) 81.2 % (50.0-75.0) H 11/24/17 06:30 Lymph % (Auto) 16.9 % (20.0-40.0) L 11/24/17 06:30 [place] % (Auto) 1.9 % (0.0-10.0) 11/24/17 06:30 Eos % (Auto) 0.0 % (0.0-4.0) 11/24/17 06:30 Baso % (Auto) 0.0 % (0.0-2.0) 11/24/17 06:30 Neut # (Auto) 5.6 K/uL (1.8-7.0) 11/24/17 06:30 Lymph # (Auto) 1.2 K/uL (1.0-4.3) 11/24/17 06:30 [place] # (Auto) 0.1 K/uL (0.0-0.8) 11/24/17 06:30 Eos # (Auto) 0.0 K/uL (0.0-0.7) 11/24/17 06:30 Baso # (Auto) 0.0 K/uL (0.0-0.2) 11/24/17 06:30 pCO2 48 mm/Hg (35-45) H 11/25/17 05:09 pO2 166 mm/Hg (80-100) H 11/25/17 05:09 HCO3 30.2 mmol/L (21-28) H 11/25/17 05:09 ABG pH 7.43 (7.35-7.45) 11/25/17 05:09 ABG Total CO2 33.4 mmol/L (22-28) H 11/25/17 05:09 ABG O2 Saturation 100.7 % (95-98) H 11/25/17 05:09 ABG O2 Content 13.1 ML/dL (15-23) L 11/25/17 05:09 ABG Base Excess 6.7 mmol/L (-2.0-3.0) H 11/25/17 05:09 ABG Hemoglobin 9.1 g/dL (11.7-17.4) L 11/25/17 05:09 ABG Carboxyhemoglobin 1.7 % (0.5-1.5) H 11/25/17 05:09 POC ABG HHb (Measured) -0.7 % (0.0-5.0) L 11/25/17 05:09 ABG Methemoglobin 0.0 % (0.0-3.0) 11/25/17 05:09 ABG O2 Capacity 13.0 mL/dL (16-24) L 11/25/17 05:09 Kermit Test Yes 11/25/17 05:09 A-a O2 Difference 2.0 mm/Hg 11/25/17 05:09 Hgb O2 Saturation 99.1 % (95.0-98.0) H 11/25/17 05:09 Vent Mode 3lnc 11/25/17 05:09 FiO2 32.0 % 11/25/17 05:09 Sodium 139 mmol/l (132-148) 11/27/17 09:45 Potassium 3.9 MMOL/L (3.6-5.0) 11/27/17 09:45 Chloride 101 mmol/L (98-107) 11/27/17 09:45 Carbon Dioxide 23 mmol/L (22-30) 11/27/17 09:45 Anion Gap 19 (10-20) 11/27/17 09:45 BUN 55 mg/dl (7-17) H 11/27/17 09:45 Creatinine 1.5 mg/dl (0.7-1.2) H 11/27/17 09:45 Est GFR ( Amer) 40 11/27/17 09:45 Est GFR (Non-Af Amer) 33 11/27/17 09:45 POC Glucose (mg/dL) 165 mg/dL (65-110) H 11/29/17 10:51 Random Glucose 257 mg/dL (65-105) H 11/27/17 09:45 Lactic Acid 1.4 MMOL/L (0.7-2.1) 11/23/17 07:06 Calcium 8.8 mg/dL (8.4-10.2) 11/27/17 09:45 Total Bilirubin 0.5 mg/dl (0.2-1.3) 11/23/17 07:06 AST 52 U/L (14-36) H D 11/23/17 07:06 ALT 58 U/L (9-52) H 11/23/17 07:06 Alkaline Phosphatase 96 U/L (38-126) 11/23/17 07:06 Troponin I < 0.0120 ng/mL (0.00-0.120) 11/24/17 15:48 NT-Pro-B Natriuret Pep 3880 pg/ml (0-900) H 11/23/17 12:19 Total Protein 6.8 G/DL (6.3-8.2) 11/23/17 07:06 Albumin 3.7 g/dL (3.5-5.0) 11/23/17 07:06 Globulin 3.1 gm/dL (2.2-3.9) 11/23/17 07:06 Albumin/Globulin Ratio 1.2 (1.0-2.1) 11/23/17 07:06 Procalcitonin < 0.05 NG/ML (0.19-0.49) L 11/23/17 12:19 Urine Color Yellow (YELLOW) 11/23/17 07:37 Urine Clarity Slighty-cloudy (Clear) 11/23/17 07:37 Urine pH 6.0 (5.0-8.0) 11/23/17 07:37 Ur Specific [place] 1.010 (1.003-1.030) 11/23/17 07:37 Urine Protein Negative mg/dL (NEGATIVE) 11/23/17 07:37 Urine Glucose (UA) Neg mg/dL (Normal) 11/23/17 07:37 Urine Ketones Negative mg/dL (NEGATIVE) 11/23/17 07:37 Urine Blood Negative (NEGATIVE) 11/23/17 07:37 Urine Nitrate Negative (NEGATIVE) 11/23/17 07:37 Urine Bilirubin Negative (NEGATIVE) 11/23/17 07:37 Urine Urobilinogen 0.2-1.0 mg/dL (0.2-1.0) 11/23/17 07:37 Ur Leukocyte Esterase Large Artie/uL (Negative) 11/23/17 07:37 Urine RBC (Auto) 3 /hpf (0-3) 11/23/17 07:37 Urine Microscopic WBC 63 /hpf (0-5) H 11/23/17 07:37 Ur Squamous Epith Cells < 1 /hpf (0-5) 11/23/17 07:37 Urine Bacteria Occ (<OCC) H 11/23/17 07:37 Hyaline Casts 3-5 /hpf (0-2) H 11/23/17 07:37 Vancomycin Trough 45.4 ug/mL (5.0-10.0) H 11/28/17 09:45 Influenza Typ A,B (EIA) Negative for flu a/b (NEGATIVE) 11/23/17 07:06 - Hospital Course Hospital Course: 82 y/o F with PMHx of COPD and chronic CHF, DM, chronic A.fib, was admitted to hosp for resp distress, COPD exacerbation and suspected HCAP. Pulmonology and Cardio were consulted and patient was treated with IV abx, high dose steroids, diuretics and nebs. She responded well to treatment and today is stable to be DC home to c/w PO abx and steroids and to f/u as outpatient Discharge Exam - Head Exam Head Exam: NORMAL INSPECTION - Eye Exam Eye Exam: EOMI, PERRL - Respiratory Exam Respiratory Exam: Wheezes (Scattered), NORMAL BREATHING PATTERN. absent: Accessory Muscle Use, Decreased Breath Sounds, Prolonged Expiratory Phase, Rales , Rhonchi, Respiratory Distress, Stridor - Cardiovascular Exam Cardiovascular Exam: REGULAR RHYTHM, +S1, +S2. absent: Gallop - GI/Abdominal Exam GI & Abdominal Exam: Normal Bowel Sounds, Soft, Unremarkable. absent: Diminished Bowel Sounds, Distended, Firm, Guarding, Rigid, Tenderness - Extremities Exam Extremities exam: normal capillary refill, pedal pulses present - Back Exam Back exam: absent: CVA tenderness (L), CVA tenderness (R) - Neurological Exam Neurological exam: Alert, Oriented x3 - Psychiatric Exam Psychiatric exam: Normal Affect, Normal Mood - Skin Skin Exam: Normal Color, Warm Discharge Plan - Discharge Medications Prescriptions: Cefdinir [Omnicef] 300 mg PO Q12 #10 cap predniSONE [predniSONE Tab] 10 mg PO DAILY 30 Days #30 tab - Follow Up Plan Condition: STABLE Disposition: HOME/ ROUTINE Instructions: Heart Failure, Adult (DC), Exacerbation of COPD (DC) Additional Instructions: laura con el cardiologo Dr. Ted riggs 2 a las 11am hacer laura con jerry doctor primario dentro de 1 semana. Referrals: Juan A Lawrence MD [Primary Care Provider] - Jason Jean MD [Staff Provider] -
[2017-11-29 15:50] VITALS: RESP 20
[2017-11-29 16:07] VITALS: BP 134/79; PULSE 77; TEMP 98.8; O2SAT 94
== END 2017-11-29 17:50 | disposition home or self-care (01) | DRG 291 ==
LOC: H.ER 05:16 → H.ERHOLD 08:22 → H.TEL 10:21 → H.ICU/CCU 11-24 14:31 → H.MEDSURG1 11-25 11:11
PROVIDERS: ADMIT Family Medicine; ATTEND Family Medicine
DX: I13.0 Hypertensive heart and chronic kidney disease with heart failure and stage 1 through stage 4 chronic kidney disease, or unspecified chronic kidney disease (principal); J96.92 Respiratory failure, unspecified with hypercapnia; J96.91 Respiratory failure, unspecified with hypoxia; I50.23 Acute on chronic systolic (congestive) heart failure; J18.9 Pneumonia, unspecified organism; J44.1 Chronic obstructive pulmonary disease with (acute) exacerbation; J44.0 Chronic obstructive pulmonary disease with (acute) lower respiratory infection; I27.20 Pulmonary hypertension, unspecified; I48.2 Chronic atrial fibrillation; E11.22 Type 2 diabetes mellitus with diabetic chronic kidney disease; G20 Parkinson's disease; N18.3 Chronic kidney disease, stage 3 (moderate); Y95 Nosocomial condition; I25.10 Atherosclerotic heart disease of native coronary artery without angina pectoris; E78.5 Hyperlipidemia, unspecified; F41.9 Anxiety disorder, unspecified; Z86.73 Personal history of transient ischemic attack (TIA), and cerebral infarction without residual deficits; F02.80 Dementia in other diseases classified elsewhere, unspecified severity, without behavioral disturbance, psychotic disturbance, mood disturbance, and anxiety; K29.70 Gastritis, unspecified, without bleeding; E78.00 Pure hypercholesterolemia, unspecified; Z95.1 Presence of aortocoronary bypass graft; Z95.0 Presence of cardiac pacemaker; Z88.5 Allergy status to narcotic agent

== ENCOUNTER 2018-02-08 04:41 | Inpatient (IN) | payer MEDICARE, OTHER ==
[2018-02-08 04:42] VITALS: PULSE 60; BMI 20.2
--- NOTE | 2018-02-08 05:28 | ED PDOC ---
HPI: Trauma/Fall - HPI Time Seen by Provider: 02/08/18 04:55 Chief Complaint (Nursing): Trauma Chief Complaint (Provider): Trauma History Per: Family History/Exam Limitations: other (dementia) Onset/Duration Of Symptoms: Hrs Additional Complaint(s): Sadie De Jesus is an 82 year old woman with a past medical history of COPD, congestive heart failure, coronary artery disease, and dementia who was brought to the ED by EMS for evaluation, s/p fall where patient slipped on the way to the bathroom. Fall was witnessed by home health aide who reported that the patient landed on the rug and is unsure of weather she hit her head. Patient, when asked, complains of whole body pain, including her lower back and extremities. Family denies patient having any fever. pt on xarelto. Of note, patient is allergic to oxycodone. PMD: none provided Past Medical History Reviewed: Historical Data, Nursing Documentation, Vital Signs Vital Signs: Last Vital Signs Temp 99.0 F 02/08/18 04:47 Pulse 70 02/08/18 04:47 Resp 18 02/08/18 04:47 BP 110/69 02/08/18 04:47 Pulse Ox 100 02/08/18 04:47 - Medical History PMH: Anemia, Anxiety, Arthritis, Asthma, Atrial Fibrillation, Bronchitis, CAD, Cardia Arrhythmia, CHF, COPD, CVA (recurrent), Dementia, Diabetes (type II), Gastritis, HTN, Hypercholesterolemia, Hyperlipidemia, Parkinson's Disease, Peripheral Edema, Pneumonia, TIA Denies: HIV, Hypothyroidism, Chronic Kidney Disease, Rheumatoid Arthritis - Surgical History Surgical History: Appendectomy, CABG, Carotid Endarterectomy, Cholecystectomy, Pacemaker - Family History Family History: States: Unknown Family Hx - Social History Current smoker - smoking cessation education provided: No Alcohol: None Drugs: Denies - Immunization History Hx Tetanus Toxoid Vaccination: No Hx Influenza Vaccination: No Hx Pneumococcal Vaccination: No - Home Medications Home Medications: Ambulatory Orders Medication Instructions Recorded Albuterol 0.5% [Albuterol 0.5% 5 mg NEB QID 10/28/17 Inhal Juliane (2.5 mg/0.5 ml) UD] Atorvastatin [Lipitor] 40 mg pe PO DAILY 10/28/17 Carvedilol [Coreg] 12.5 mg PO Q12 10/28/17 Clopidogrel [Plavix] 75 mg PO DAILY 10/28/17 Furosemide [Lasix] 20 mg PO DAILY 10/28/17 Gabapentin [Neurontin] 300 mg PO DAILY 10/28/17 Linagliptin [Tradjenta] 5 mg PO DAILY 10/28/17 Memantine HCl [Namenda Xr] 14 mg PO QPM 10/28/17 Pantoprazole [Protonix EC Tab] 40 mg pe PO DAILY 10/28/17 Rivaroxaban [Xarelto] 15 mg PO DAILY 10/28/17 Spironolactone [Aldactone] 50 mg pe PO DAILY 10/28/17 Valsartan 160 mg PO DAILY 10/28/17 metOLazone [Zaroxolyn] 2.5 mg PO DAILY 10/28/17 Colchicine [Colcrys] 0.6 mg PO BID 11/23/17 Icosapent Ethyl [Vascepa] 1 gm PO DAILY 11/23/17 Cefdinir [Omnicef] 300 mg PO Q12 #10 cap 11/29/17 predniSONE [predniSONE Tab] 10 mg PO DAILY 30 Days #30 tab 11/29/17 - Allergies Allergies/Adverse Reactions: Allergies Allergy/AdvReac Type Severity Reaction Status Date / Time oxycodone Allergy RASH Verified 06/20/17 22:31 Review of Systems ROS Statement: Except As Marked, All Systems Reviewed And Found Negative Constitutional: Positive for: Other (whole body pain). Negative for: Fever Physical Exam - Reviewed Nursing Documentation Reviewed: Yes Vital Signs Reviewed: Yes - Physical Exam Appears: Positive for: Non-toxic, No Acute Distress Head Exam: Positive for: ATRAUMATIC, NORMAL INSPECTION, NORMOCEPHALIC Skin: Positive for: Normal Color, Warm, DRY Eye Exam: Positive for: EOMI, Normal appearance, PERRL ENT: Positive for: Normal ENT Inspection Neck: Positive for: Normal, Painless ROM Cardiovascular/Chest: Positive for: Regular Rate, Rhythm. Negative for: Murmur Respiratory: Positive for: Rhonchi (slight). Negative for: Respiratory Distress Gastrointestinal/Abdominal: Positive for: Normal Exam, Soft Back: Positive for: Normal Inspection Extremity: Positive for: Normal ROM. Negative for: Pedal Edema, Deformity Neurologic/Psych: Positive for: Alert, Oriented (x1). Negative for: Motor/ Sensory Deficits - Laboratory Results Result Diagrams: 02/10/18 05:30 02/10/18 05:30 - ECG O2 Sat by Pulse Oximetry: 100 (RA) Pulse Ox Interpretation: Normal Medical Decision Making Medical Decision Making: Time: 5:20 Plan: fall rule out electrolyte abnormality, infection --CT Head --CMP --Troponin --CBC --Chest X-Ray --Glucose, POC 7:00 Patient will be signed out to Dr. Owens pending labs, imaging and likely admission. Scribe Attestation: Documented by, Melia Mckeon acting as a scribe for Germaine Corral MD. Provider Scribe Attestation: All medical record entries made by the Scribe were at my direction and personally dictated by me. I have reviewed the chart and agree that the record accurately reflects my personal performance of the history, physical exam, medical decision making, and the department course for this patient. I have also personally directed, reviewed, and agree with the discharge instructions and disposition. Disposition - Clinical Impression Clinical Impression: CHF (congestive heart failure), Fall, Hyperkalemia, Pneumonia - Patient ED Disposition Is Patient to be Admitted: Transfer of Care - Disposition Disposition: Transfer of Care Disposition Time: 07:00 Condition: FAIR Patient Signed Over To: Manfred Owens
[2018-02-08] MEDS ORDERED: Albuterol 0.083% Inhal Sol (2.5 mg/3 mL) UD INH ONE (05:57)
[2018-02-08 06:00] LABS: BASO % 0.2 % (0.0-2.0); EOS % 0.1 % (0.0-4.0); HEMOGLOBIN 9.5 g/dL (12.0-16.0); LYMPH % 5.7 % (20.0-40.0); MEAN CELL VOLUME 94.1 fl (81.0-99.0); MEAN CORPUSCULAR HEMOGLOBIN 30.4 pg (27.0-31.0); MEAN CORPUSCULAR HGB CONC 32.3 g/dL (33.0-37.0); MEAN PLATELET VOLUME 11.2 fl (7.2-11.7); MONO # 0.9 K/uL (0.0-0.8); MONO % 5.3 % (0.0-10.0); NEUT # 15.7 K/uL (1.8-7.0); NEUT % 88.7 % (50.0-75.0); NRBC % 0.1 % (0.0-0.0); PLATELET COUNT 155 K/uL (130-400); RBC 3.13 Mil/uL (3.80-5.20); RED CELL DISTRIBUTION WIDTH 20.2 % (11.5-14.5); WHITE BLOOD COUNT 17.7 K/uL (4.8-10.8)
[2018-02-08] MEDS ORDERED: Albuterol 0.042% Inhal Sol (1.25 mg/3 mL) UD ONE (06:00)
[2018-02-08 06:13] LABS: CALCIUM 9.1 mg/dL (8.4-10.2)
[2018-02-08 06:24] LABS: ALB/GLOB RATIO 0.9 (1.0-2.1); ALBUMIN 2.9 g/dL (3.5-5.0); TROPONIN I 0.082 ng/mL (0.00-0.120)
--- NOTE | 2018-02-08 07:08 | CT ---
EXAM: CT Head Without Intravenous Contrast CLINICAL HISTORY: 82 years old, female; Pain; Headache TECHNIQUE: Axial computed tomography images of the head/brain without intravenous contrast. All CT scans at this facility use one or more dose reduction techniques, viz.: automated exposure control; ma/kV adjustment per patient size (including targeted exams where dose is matched to indication; i.e. head); or iterative reconstruction technique. Coronal and sagittal reformatted images were created and reviewed. COMPARISON: CT - HEAD W/O CONTRAST 2017-10-27 20:58 FINDINGS: Brain: There is moderate diffuse cerebral atrophy present, consistent with this patient's age. There is moderate diffuse heterogeneity of the white matter attenuation, consistent with chronic white matter ischemic changes. No hemorrhage. Ventricles: The ventricular system demonstrates mild diffuse compensatory enlargement. Bones/joints: Unremarkable. No acute fracture. Soft tissues: Unremarkable. Sinuses: Unremarkable as visualized. No acute sinusitis. Mastoid air cells: Unremarkable as visualized. No mastoid effusion. IMPRESSION: Age-related atrophy and chronic white matter ischemic changes, with no evidence of an acute intracranial abnormality.
--- NOTE | 2018-02-08 07:32 | RAD ---
EXAM: XR Right Hip With Pelvis When Performed, 1 View CLINICAL HISTORY: 82 years old, female; Injury or trauma; Fall; Initial encounter; Blunt trauma (contusions or hematomas); Bilateral; Pelvic region TECHNIQUE: Frontal view of the right hip, with pelvis when performed. COMPARISON: CT - CHEST,ABD,PEL W/IV CONT ONLY 2015-11-28 12:40 FINDINGS: Bones/joints: The femoral heads are intact bilaterally. No acute fracture. No dislocation. There is a sclerotic lesion in the right femoral neck measuring 8 mm, probable bone island. Soft tissues: Unremarkable. IMPRESSION: No acute fracture or dislocation.
--- NOTE | 2018-02-08 07:44 | RAD ---
EXAM: XR Chest, 1 View CLINICAL HISTORY: 82 years old, female; Pain; Chest pain TECHNIQUE: Frontal view of the chest 6:03 AM 02/08/2018. COMPARISON: CR - CHEST ONE VIEW 2017-11-24 14:38 FINDINGS: Lungs: The pulmonary vascularity is enlarged. Diffuse bilateral interstitial lung markings. Bibasilar opacities secondary to atelectasis/infiltrate. Pleural space: Small left pleural effusion . The right costophrenic angle is blunted secondary to a tiny pleural effusion versus pleural thickening. No pneumothorax. Heart: The heart demonstrates mild diffuse enlargement. Mediastinum: Unremarkable. Bones/joints: There are sternal wires consistent with previous sternotomy incision. Tubes, lines and devices: A pacemaker device is present, and its leads are in appropriate position. IMPRESSION: Mild central pulmonary venous congestion. Small left pleural effusion with lung base atelectasis/infiltrate. Right pleural effusion versus pleural thickening. Right lung base atelectasis/infiltrate.
--- NOTE | 2018-02-08 07:52 | ED PDOC ---
- Laboratory Results Result Diagrams: 02/08/18 05:55 02/08/18 08:24 Interpretation Of Abn Labs: 25,700 bnp; 17 wbc; bun elevated, 5.5 k - ECG Interpretation Of Abn EKG: paced ekg O2 Sat by Pulse Oximetry: 100 (RA) - Radiology X-Ray: Read By Radiologist X-Ray Interpretation: Infiltrates (RLL and effusion) - CT Scan/US ct Other Rad Studies (CT/US): Read By Radiologist Other Rad Interpretation: no acute - Progress ED Course And Treament: 700: Took over care from Dr. Corral. Fu imaging. Here with a fall. 840: Spoke with daughter, pt. had a fall. Is on xaralto. Pt. has been with dyspnea for 3 days. Will order bnp and abg. Pain improved. 1035: Stable. AAOx3. Dr. Lawrence will admit. Pt. with chf, pneumonia, fall, and hyperkalemia. No ASA as pt. on xaralto. Disposition Counseled Patient/Family Regarding: Studies Performed, Diagnosis - Clinical Impression Clinical Impression: CHF (congestive heart failure), Fall, Hyperkalemia, Pneumonia - POA Present On Arrival: Falls Or Trauma - Disposition Disposition: Admitted as In-Patient Disposition Time: 10:36 Condition: FAIR
[2018-02-08 08:40] LABS: BANDS 7 % (0-2); LYMPHOCYTE 5 % (20-50); MONOCYTE 7 % (0-10); MYELOCYTE 1 % (0-0); NEUTROPHIL 80 % (42-75); PLATELET ESTIMATE NORMAL (NORMAL); TOTAL CELLS COUNTED 100
[2018-02-08 08:41] LABS: ANISOCYTOSIS MODERATE; HYPOCHROMIC SLIGHT; LARGE PLATELETS PRESENT; OVALOCYTES SLIGHT; POIKILOCYTOSIS SLIGHT; SCHISTOCYTES SLIGHT
[2018-02-08] MEDS ORDERED: Dextrose 50% SYRINGE Inj (50 ml) IVP ONE (10:13)
[2018-02-08] MEDS ORDERED: Insulin Regular 100 units/ml SC STA (10:13)
[2018-02-08] MEDS ORDERED: Sod Polystyrene Sulf 15 gm/60 ml Susp PO STA (10:13)
[2018-02-08] MEDS ORDERED: Albuterol-Ipratrop 3 mg / 0.5 (3 ml) UD INH STA (10:13)
[2018-02-08] MEDS ORDERED: cefTRIAXone (Rocephin) 1 gm Inj IV ONE (10:28)
[2018-02-08 10:29] LABS: ABG ALLEN TEST YES; ARTERIAL BLOOD GAS HCO3 27.5 mmol/L (21-28); ARTERIAL BLOOD GAS O2 SAT 100.1 % (95-98); ARTERIAL BLOOD GAS PCO2 37 mm/Hg (35-45); ARTERIAL BLOOD GAS PH 7.47 (7.35-7.45); ARTERIAL BLOOD GAS PO2 174 mm/Hg (80-100)
[2018-02-08] MEDS ORDERED: Azithromycin 500 MG in Sodium Chloride 0.9% 250 ML IVPB ONE (10:45)
[2018-02-08] MEDS ORDERED: Dextrose 50% SYRINGE Inj (50 ml) ONE (11:32)
[2018-02-08] MEDS ORDERED: Sod Polystyrene Sulf 15 gm/60 ml Susp ONE (11:33)
[2018-02-08] MEDS ORDERED: Albuterol-Ipratrop 3 mg / 0.5 (3 ml) UD ONE (11:33)
[2018-02-08] MEDS ORDERED: Azithromycin 500 MG IV IVPB ONE (11:34)
[2018-02-08] MEDS ORDERED: cefTRIAXone (Rocephin) 1 gm Inj ONE (11:34)
[2018-02-08] MEDS: Sodium Chloride 0.9% 250 ML IV SCH (12:30)
--- NOTE | 2018-02-08 13:37 | CP.PCM.HP ---
<Kushal Contreras - Last Filed: 02/08/18 13:27> History of Present Illness - History of Present Illness History of Present Illness: CC: fall HPI: 82 y/o woman w/ pmh of NIDDM2, COPD (emphysema), diastolic CHF, CAD, pacemaker, and dementia brougth to ED via EMS s/p fall. Patient fell at home on her way to the bathroom. Fall was witnessed by home health aide. Patient unsure of head trauma. Patient complains of low back pain and pain in her upper and lower extremities. Patient denies headaches, chest pain, SOB, abdominal pain, nausea, vomiting, diarrhea, dysuria, or fever. PMD: none provided PMH CHF, CAD, COPD, CVA/TIA, HLD, NIDDM meds: see med list allergies: oxycodone PSH: CABG, carotid endarterectomy, cholecystectomy, appendectomy Fam: non-contributory SOC: denies smoking, alcohol and drugs ROS: 12 points assessed and negative unless otherwise reported in HPI Present on Admission - Present on Admission Any Indicators Present on Admission: No History of DVT/PE: No History of Uncontrolled Diabetes: No Urinary Catheter: No Decubitus Ulcer Present: No Review of Systems - Review of Systems All systems: reviewed and no additional remarkable complaints except - Constitutional Constitutional: absent: Fever, Headache - EENT Eyes: absent: Change in Vision - Cardiovascular Cardiovascular: absent: Chest Pain - Respiratory Respiratory: absent: Dyspnea - Gastrointestinal Gastrointestinal: absent: Abdominal Pain, Diarrhea, Nausea, Vomiting - Genitourinary Genitourinary: absent: Dysuria - Musculoskeletal Musculoskeletal: As Per HPI, Back Pain - Integumentary Integumentary: absent: Rash - Neurological Neurological: absent: Dizziness, Headaches Past Patient History - Infectious Disease Hx of Infectious Diseases: None - Tetanus Immunizations Tetanus Immunization: Unknown - Past Medical History & Family History Past Medical History?: Yes - Past Social History Alcohol: None Drugs: Denies - CARDIAC Hx Cardiac Disorders: Yes - PULMONARY Hx Respiratory Disorders: Yes - NEUROLOGICAL Hx Neurological Disorder: Yes - HEENT Hx HEENT Problems: No - RENAL Hx Chronic Kidney Disease: No - ENDOCRINE/METABOLIC Hx Endocrine Disorders: Yes - HEMATOLOGICAL/ONCOLOGICAL Hx Blood Disorders: Yes - INTEGUMENTARY Hx Dermatological Problems: No - MUSCULOSKELETAL/RHEUMATOLOGICAL Hx Musculoskeletal Disorders: Yes - GASTROINTESTINAL Hx Gastritis: Yes - GENITOURINARY/GYNECOLOGICAL Hx Genitourinary Disorders: No - PSYCHIATRIC Hx Psychophysiologic Disorder: Yes - SURGICAL HISTORY Hx Appendectomy: Yes Hx Carotid Endarterectomy: Yes Hx Cholecystectomy: Yes Hx Coronary Artery Bypass Graft: Yes - ANESTHESIA Hx Anesthesia: Yes Hx Anesthesia Reactions: No Hx Malignant Hyperthermia: No Meds Allergies/Adverse Reactions: Allergies Allergy/AdvReac Type Severity Reaction Status Date / Time oxycodone Allergy RASH Verified 06/20/17 22:31 Physical Exam - Constitutional Appears: Non-toxic, No Acute Distress - Head Exam Head Exam: ATRAUMATIC, NORMAL INSPECTION, NORMOCEPHALIC - Eye Exam Eye Exam: Normal appearance - ENT Exam ENT Exam: Mucous Membranes Moist - Neck Exam Neck exam: Positive for: Full Rom. Negative for: Tenderness - Respiratory Exam Respiratory Exam: Decreased Breath Sounds, Rales, Rhonchi, Wheezes. absent: Accessory Muscle Use, Respiratory Distress - Cardiovascular Exam Cardiovascular Exam: REGULAR RHYTHM - GI/Abdominal Exam GI & Abdominal Exam: Normal Bowel Sounds, Soft. absent: Distended, Tenderness - Extremities Exam Extremities exam: Positive for: normal inspection. Negative for: calf tenderness - Neurological Exam Neurological exam: Alert, CN II-XII Intact, Oriented x3 - Skin Skin Exam: Dry, Intact, Normal Color, Warm Results - Vital Signs Recent Vital Signs: Last Vital Signs Temp 99.0 F 02/08/18 04:47 Pulse 83 02/08/18 13:09 Resp 16 02/08/18 13:09 BP 92/64 L 02/08/18 13:09 Pulse Ox 95 02/08/18 12:54 - Labs Result Diagrams: 02/08/18 05:55 02/08/18 08:24 Labs: Laboratory Results - last 24 hr 02/08/18 02/08/18 02/08/18 04:55 05:55 05:55 WBC 17.7 H D RBC 3.13 L Hgb 9.5 L Hct 29.5 L MCV 94.1 D MCH 30.4 MCHC 32.3 L RDW 20.2 H Plt Count 155 MPV 11.2 Neut % (Auto) 88.7 H Lymph % (Auto) 5.7 L [place] % (Auto) 5.3 Eos % (Auto) 0.1 Baso % (Auto) 0.2 Neut # (Auto) 15.7 H Lymph # (Auto) 1.0 Good[place] # (Auto) 0.9 H Eos # (Auto) 0.0 Baso # (Auto) 0.0 Neutrophils % (Manual) 80 H Band Neutrophils % 7 H Lymphocytes % (Manual) 5 L Monocytes % (Manual) 7 Myelocytes % 1 H Platelet Estimate Normal Large Platelets Present Hypochromasia (manual) Slight Poikilocytosis (manual Slight Anisocytosis (manual) Moderate Ovalocytes Slight Schistocytes Slight pCO2 pO2 HCO3 ABG pH ABG Total CO2 ABG O2 Saturation ABG Base Excess Kermit Test ABG Potassium A-a O2 Difference Glucose Lactate Vent Mode FiO2 Sodium 133 Potassium 6.1 H Chloride 100 Carbon Dioxide 26 Anion Gap 13 BUN 66 H Creatinine 1.2 Est GFR ( Amer) 52 Est GFR (Non-Af Amer) 43 POC Glucose (mg/dL) 207 H Random Glucose 173 H Calcium 9.1 Total Bilirubin 1.0 AST 59 H ALT 83 H D Alkaline Phosphatase 104 Troponin I 0.0820 NT-Pro-B Natriuret Pep Total Protein 6.0 L Albumin 2.9 L D Globulin 3.1 Albumin/Globulin Ratio 0.9 L Arterial Blood Potassium 02/08/18 02/08/18 08:24 10:13 WBC RBC Hgb Hct MCV MCH MCHC RDW Plt Count MPV Neut % (Auto) Lymph % (Auto) [place] % (Auto) Eos % (Auto) Baso % (Auto) Neut # (Auto) Lymph # (Auto) [place] # (Auto) Eos # (Auto) Baso # (Auto) Neutrophils % (Manual) Band Neutrophils % Lymphocytes % (Manual) Monocytes % (Manual) Myelocytes % Platelet Estimate Large Platelets Hypochromasia (manual) Poikilocytosis (manual Anisocytosis (manual) Ovalocytes Schistocytes pCO2 37 pO2 174 H HCO3 27.5 ABG pH 7.47 H ABG Total CO2 28.0 ABG O2 Saturation 100.1 H ABG Base Excess 3.2 H Kermit Test Yes ABG Potassium 5.4 H A-a O2 Difference 8.0 Glucose 192 H Lactate 1.7 Vent Mode 3lnc FiO2 32.0 Sodium 129.0 L Potassium 5.5 H Chloride 102.0 Carbon Dioxide Anion Gap BUN Creatinine Est GFR ( Amer) Est GFR (Non-Af Amer) POC Glucose (mg/dL) Random Glucose Calcium Total Bilirubin AST ALT Alkaline Phosphatase Troponin I NT-Pro-B Natriuret Pep 58621 H Total Protein Albumin Globulin Albumin/Globulin Ratio Arterial Blood Potassium 5.4 H Assessment & Plan (1) Fall Status: Acute (2) Acute on chronic heart failure Status: Acute (3) COPD exacerbation Status: Acute (4) Coronary artery disease Status: Chronic (5) Osteoarthritis Status: Chronic (6) Atrial fibrillation Status: Chronic (7) HTN (hypertension) Status: Chronic Priority: Medium (8) History of CVA (cerebrovascular accident) Status: Chronic Priority: Medium (9) Pacemaker Status: Chronic - Assessment and Plan (Free Text) Plan: afebrile, non-tachycardic, normotensive podiatry consult ordered WBC 17.7 CXR: right lower lobe infiltrate azithromycin 500 mg IV daily day 1 ceftriaxone 1 gm IV daily day 1 duonebs INH Q6h laura lasix held due to borderline BP f/u CBC and CMP in AM prophylactic measures: DVT on xarelto 15 mg PO daily for afib monitor for acute changes <Juan A Lawrence - Last Filed: 02/09/18 21:56> Results - Vital Signs Recent Vital Signs: Last Vital Signs Temp 98.1 F 02/09/18 16:00 Pulse 62 02/09/18 19:00 Resp 16 02/09/18 19:00 BP 114/58 L 02/09/18 19:00 Pulse Ox 100 02/09/18 19:00 - Labs Result Diagrams: 02/09/18 12:00 02/09/18 12:00 Labs: Laboratory Results - last 24 hr 02/08/18 02/09/18 02/09/18 21:45 05:10 06:00 WBC 15.6 H RBC 3.02 L Hgb 9.2 L Hct 28.1 L MCV 93.0 MCH 30.5 MCHC 32.8 L RDW 20.3 H Plt Count 149 MPV 11.7 Neut % (Auto) 81.9 H Lymph % (Auto) 10.6 L [place] % (Auto) 7.4 Eos % (Auto) 0.0 Baso % (Auto) 0.1 Neut # (Auto) 12.8 H Lymph # (Auto) 1.7 Good[place] # (Auto) 1.2 H Eos # (Auto) 0.0 Baso # (Auto) 0.0 pO2 VBG pH VBG pCO2 VBG HCO3 VBG Total CO2 VBG O2 Sat (Calc) VBG Base Excess VBG Potassium A-a O2 Difference Glucose Lactate FiO2 Blood Gas Comments Crit Value Called To Crit Value Called By Crit Value Read Back Blood Gas Notified Time Sodium Potassium Chloride Carbon Dioxide Anion Gap BUN Creatinine Est GFR ( Amer) Est GFR (Non-Af Amer) POC Glucose (mg/dL) 114 H 217 H Random Glucose Calcium Total Bilirubin AST ALT Alkaline Phosphatase Troponin I NT-Pro-B Natriuret Pep Total Protein Albumin Globulin Albumin/Globulin Ratio Venous Blood Potassium Urine Color Urine Clarity Urine pH Ur Specific [place] Urine Protein Urine Glucose (UA) Urine Ketones Urine Blood Urine Nitrate Urine Bilirubin Urine Urobilinogen Ur Leukocyte Esterase Urine RBC (Auto) Urine WBC Clumps (Auto) Urine Microscopic WBC Ur Squamous Epith Cells Urine Bacteria Blood Type Antibody Screen Crossmatch BBK History Checked 02/09/18 02/09/18 02/09/18 06:00 11:55 12:00 WBC 11.5 H RBC 2.82 L Hgb 8.3 L Hct 27.9 L MCV 98.9 D MCH 29.4 MCHC 29.7 L RDW 21.5 H Plt Count 127 L D MPV Neut % (Auto) Lymph % (Auto) [place] % (Auto) Eos % (Auto) Baso % (Auto) Neut # (Auto) Lymph # (Auto) [place] # (Auto) Eos # (Auto) Baso # (Auto) pO2 VBG pH VBG pCO2 VBG HCO3 VBG Total CO2 VBG O2 Sat (Calc) VBG Base Excess VBG Potassium A-a O2 Difference Glucose Lactate FiO2 Blood Gas Comments Crit Value Called To Crit Value Called By Crit Value Read Back Blood Gas Notified Time Sodium 137 Potassium 4.1 Chloride 101 Carbon Dioxide 28 Anion Gap 12 BUN 54 H Creatinine 1.2 Est GFR ( Amer) 52 Est GFR (Non-Af Amer) 43 POC Glucose (mg/dL) 238 H Random Glucose 205 H Calcium 8.8 Total Bilirubin 1.0 AST 67 H ALT 112 H D Alkaline Phosphatase 115 Troponin I NT-Pro-B Natriuret Pep Total Protein 5.4 L Albumin 2.6 L Globulin 2.8 Albumin/Globulin Ratio 0.9 L Venous Blood Potassium Urine Color Urine Clarity Urine pH Ur Specific [place] Urine Protein Urine Glucose (UA) Urine Ketones Urine Blood Urine Nitrate Urine Bilirubin Urine Urobilinogen Ur Leukocyte Esterase Urine RBC (Auto) Urine WBC Clumps (Auto) Urine Microscopic WBC Ur Squamous Epith Cells Urine Bacteria Blood Type Antibody Screen Crossmatch BBK History Checked 02/09/18 02/09/18 02/09/18 12:00 13:30 13:40 WBC RBC Hgb Hct MCV MCH MCHC RDW Plt Count MPV Neut % (Auto) Lymph % (Auto) [place] % (Auto) Eos % (Auto) Baso % (Auto) Neut # (Auto) Lymph # (Auto) [place] # (Auto) Eos # (Auto) Baso # (Auto) pO2 VBG pH VBG pCO2 VBG HCO3 VBG Total CO2 VBG O2 Sat (Calc) VBG Base Excess VBG Potassium A-a O2 Difference Glucose Lactate FiO2 Blood Gas Comments Crit Value Called To Crit Value Called By Crit Value Read Back Blood Gas Notified Time Sodium 135 Potassium 3.8 Chloride 103 Carbon Dioxide 24 Anion Gap 12 BUN 55 H Creatinine 1.2 Est GFR ( Amer) 52 Est GFR (Non-Af Amer) 43 POC Glucose (mg/dL) Random Glucose 232 H Calcium 8.1 L Total Bilirubin AST ALT Alkaline Phosphatase Troponin I 0.1900 H* NT-Pro-B Natriuret Pep 18518 H Total Protein Albumin Globulin Albumin/Globulin Ratio Venous Blood Potassium Urine Color Urine Clarity Urine pH Ur Specific [place] Urine Protein Urine Glucose (UA) Urine Ketones Urine Blood Urine Nitrate Urine Bilirubin Urine Urobilinogen Ur Leukocyte Esterase Urine RBC (Auto) Urine WBC Clumps (Auto) Urine Microscopic WBC Ur Squamous Epith Cells Urine Bacteria Blood Type AB POSITIVE Antibody Screen Negative Crossmatch See Detail BBK History Checked Patient has bt 02/09/18 02/09/18 02/09/18 14:53 15:44 18:33 WBC RBC Hgb Hct MCV MCH MCHC RDW Plt Count MPV Neut % (Auto) Lymph % (Auto) [place] % (Auto) Eos % (Auto) Baso % (Auto) Neut # (Auto) Lymph # (Auto) [place] # (Auto) Eos # (Auto) Baso # (Auto) pO2 23 L VBG pH 7.31 L VBG pCO2 50 VBG HCO3 21.9 VBG Total CO2 26.7 VBG O2 Sat (Calc) 39.7 L VBG Base Excess -1.7 L VBG Potassium 3.6 A-a O2 Difference 128.0 Glucose 193 H Lactate 1.6 FiO2 30.0 Blood Gas Comments /2/m [email or web address] Crit Value Called To Dr [email or web address] Crit Value Called By 15 Crit Value Read Back Y Blood Gas Notified Time 1456 Sodium 137.0 Potassium Chloride 110.0 H Carbon Dioxide Anion Gap BUN Creatinine Est GFR ( Amer) Est GFR (Non-Af Amer) POC Glucose (mg/dL) 187 H Random Glucose Calcium Total Bilirubin AST ALT Alkaline Phosphatase Troponin I NT-Pro-B Natriuret Pep Total Protein Albumin Globulin Albumin/Globulin Ratio Venous Blood Potassium 3.6 Urine Color Yellow Urine Clarity Cloudy Urine pH 6.0 Ur Specific [place] 1.017 Urine Protein 30 Urine Glucose (UA) Neg Urine Ketones Negative Urine Blood Small Urine Nitrate Negative Urine Bilirubin Negative Urine Urobilinogen 0.2-1.0 Ur Leukocyte Esterase Large Urine RBC (Auto) 6 H Urine WBC Clumps (Auto) Few H Urine Microscopic WBC 68 H Ur Squamous Epith Cells < 1 Urine Bacteria Rare Blood Type Antibody Screen Crossmatch BBK History Checked 02/09/18 21:37 WBC RBC Hgb Hct MCV MCH MCHC RDW Plt Count MPV Neut % (Auto) Lymph % (Auto) [place] % (Auto) Eos % (Auto) Baso % (Auto) Neut # (Auto) Lymph # (Auto) Good[place] # (Auto) Eos # (Auto) Baso # (Auto) pO2 VBG pH VBG pCO2 VBG HCO3 VBG Total CO2 VBG O2 Sat (Calc) VBG Base Excess VBG Potassium A-a O2 Difference Glucose Lactate FiO2 Blood Gas Comments Crit Value Called To Crit Value Called By Crit Value Read Back Blood Gas Notified Time Sodium Potassium Chloride Carbon Dioxide Anion Gap BUN Creatinine Est GFR ( Amer) Est GFR (Non-Af Amer) POC Glucose (mg/dL) 260 H Random Glucose Calcium Total Bilirubin AST ALT Alkaline Phosphatase Troponin I NT-Pro-B Natriuret Pep Total Protein Albumin Globulin Albumin/Globulin Ratio Venous Blood Potassium Urine Color Urine Clarity Urine pH Ur Specific [place] Urine Protein Urine Glucose (UA) Urine Ketones Urine Blood Urine Nitrate Urine Bilirubin Urine Urobilinogen Ur Leukocyte Esterase Urine RBC (Auto) Urine WBC Clumps (Auto) Urine Microscopic WBC Ur Squamous Epith Cells Urine Bacteria Blood Type Antibody Screen Crossmatch BBK History Checked Assessment & Plan - Assessment and Plan (Free Text) Plan: I was present during evaluation and discussed with Dr Ben fuentes plans of care and mgt. Juan A Lawrence M.D.
[2018-02-08] MEDS ORDERED: Dextrose 50% SYRINGE Inj (50 ml) IV PRN (14:05)
[2018-02-08] MEDS ORDERED: Glucagon Recombinant 1 mg Inj IM PRN (14:05)
[2018-02-08] MEDS: Albuterol-Ipratrop 3 mg / 0.5 (3 ml) UD INH SCH ×2 (14:10→20:11)
--- NOTE | 2018-02-08 16:06 | CARD ---
APPROVED REPORT EKG Measurement Heart [id number] <Conclusion> Ventricular-paced rhythm Underlying rhythm is A Flutter Abnormal ECG
[2018-02-08] MEDS: Insulin Lispro (humaLOG) 100 Units/ml Inj SC SCH ×2 (16:28→22:04)
[2018-02-08] MEDS ORDERED: MEMANTINE HCL 14 MG PO SCH (18:00)
--- NOTE | 2018-02-08 19:54 | CP.PCM.CON ---
History of Present Illness - History of Present Illness History of Present Illness: POdiatry Consult Note- Dr. Allen 82 y.o Sammarinese speaking patient with PMH of DM, COPD, diastolic CHF, CAD, pacemaker, and dementia seen and evaluated after consultation for left ankle cellulitis. Patient is seen resting comfortably in bed, in NAD. During the time of visitation, patient reports that she has no pain to the lower extremity bilaterally. When asked about her lower extremity red discoloration patient reports that she got it from a fall. When asked, the duration of red discoloration, patient reports for 1 week. Patient denies nausea, fever, chills , vomiting, chest pains or diarrhea. Patient reports feeling shortness of breath. PMH of DM, COPD, diastolic CHF, CAD, pacemaker, and dementia PSH: CABG, carotid endarterectomy, cholecystectomy, appendectomy SOC: denies smoking, alcohol and drugs ALL: oxycodone MEDS: see medication list Past Patient History - Infectious Disease Hx of Infectious Diseases: None - Tetanus Immunizations Tetanus Immunization: Unknown - Past Medical History & Family History Past Medical History?: Yes - Past Social History Smoking Status: Never Smoked - CARDIAC Hx Cardiac Disorders: Yes Hx Atrial Fibrillation: Yes Hx Congestive Heart Failure: Yes Hx Heart Attack: Yes Hx Hypercholesterolemia: Yes Hx Hypertension: Yes Hx Pacemaker: Yes - PULMONARY Hx Respiratory Disorders: Yes Hx Asthma: Yes Hx Bronchitis: Yes Hx Chronic Obstructive Pulmonary Disease (COPD): Yes Hx Emphysema: Yes Hx Pneumonia: Yes - NEUROLOGICAL Hx Neurological Disorder: Yes Hx Dementia: Yes Hx Parkinson's Disease: Yes - HEENT Hx HEENT Problems: No - RENAL Hx Chronic Kidney Disease: No - ENDOCRINE/METABOLIC Hx Endocrine Disorders: Yes Hx Diabetes Mellitus Type 1: Yes - HEMATOLOGICAL/ONCOLOGICAL Hx Blood Disorders: Yes Hx AIDS: No Hx Anemia: Yes Hx Human Immunodeficiency Virus (HIV): No - INTEGUMENTARY Hx Dermatological Problems: No - MUSCULOSKELETAL/RHEUMATOLOGICAL Hx Musculoskeletal Disorders: Yes Hx Falls: Yes - GASTROINTESTINAL Hx Gastritis: Yes - GENITOURINARY/GYNECOLOGICAL Hx Genitourinary Disorders: No - PSYCHIATRIC Hx Psychophysiologic Disorder: Yes Hx Anxiety: Yes Hx Substance Use: No - SURGICAL HISTORY Hx Appendectomy: Yes Hx Carotid Endarterectomy: Yes Hx Cholecystectomy: Yes Hx Coronary Artery Bypass Graft: Yes - ANESTHESIA Hx Anesthesia: Yes Hx Anesthesia Reactions: No Hx Malignant Hyperthermia: No Meds Allergies/Adverse Reactions: Allergies Allergy/AdvReac Type Severity Reaction Status Date / Time oxycodone Allergy RASH Verified 06/20/17 22:31 - Medications Medications: Current Medications Acetaminophen (Tylenol 325mg Tab) 650 mg PO Q6 PRN PRN Reason: Pain, Mild (1-3) Albuterol/Ipratropium (Duoneb 3 Mg/0.5 Mg (3 Ml) Ud) 3 ml INH RQ6 [facility] Last Admin: 02/08/18 14:10 Dose: 3 ml Atorvastatin Calcium (Lipitor) 40 mg PO DAILY [facility] Carvedilol (Coreg) 12.5 mg PO Q12 [facility] Clopidogrel Bisulfate (Plavix) 75 mg PO DAILY [facility] Dextrose (Dextrose 50% Inj) 0 ml IV STAT PRN; Protocol PRN Reason: Hypoglycemia Protocol Dextrose (Glutose 15) 0 gm PO ONCE PRN; Protocol PRN Reason: Hypoglycemia Protocol Gabapentin (Neurontin) 300 mg PO DAILY [facility] Glucagon (Glucagen Diagnostic Kit) 0 mg IM STAT PRN; Protocol PRN Reason: Hypoglycemia Protocol Home Med (Icosapent Ethyl [Vascepa]) 1 gm PO DAILY [facility] Home Med (Linagliptin [Tradjenta]) 5 mg PO DAILY [facility] Home Med (Memantine Hcl [Namenda Xr]) 14 mg PO QPM [facility] Sodium Chloride (Sodium Chloride 0.9%) 250 mls @ 999 mls/hr IV .Q16M [facility] Stop: 02/09/18 12:27 Last Admin: 02/08/18 12:30 Dose: 999 mls/hr Ceftriaxone Sodium 1 gm/ (Sodium Chloride) 100 mls @ 100 mls/hr IVPB DAILY [facility] PRN Reason: Protocol Azithromycin 500 mg/ Sodium (Chloride) 250 mls @ 250 mls/hr IVPB DAILY [facility] PRN Reason: Protocol Ibuprofen (Motrin Tab) 400 mg PO Q6 PRN PRN Reason: Pain, moderate (4-7) Insulin Human Lispro (Humalog) 0 units SC ACHS [facility] PRN Reason: Protocol Last Admin: 02/08/18 16:28 Dose: Not Given Memantine (Namenda) 5 mg PO BID [facility] Last Admin: 02/08/18 16:26 Dose: 5 mg Metolazone (Zaroxolyn) 2.5 mg PO DAILY [facility] [id number] Ethyl Esters (Lovaza) 1 gm PO DAILY [facility] Rivaroxaban (Xarelto) 15 mg PO DAILY [facility] PRN Reason: Protocol Sitagliptin Phosphate (Januvia) 25 mg PO DAILY [facility] Spironolactone (Aldactone) 50 mg PO DAILY [facility] Valsartan (Diovan) 160 mg PO DAILY [facility] Physical Exam - Constitutional Appears: Well, Non-toxic, No Acute Distress - Extremities Exam Extremities exam: Negative for: calf tenderness Additional comments: VASC: DP faintly palpation bilateral, PT nonpalpable bilateral, temperature gradient warm to cool from proximal knees to distal toes (WNL), no increase calor DERM: left anteriomedial aspect lower distal 1/3 leg with ecchymotic changes/ bruising with brighter red discoloration noted to surrounding deeper red discoloration. There are no open lesions, no streaking, no abscess or fluctanance appreciated, no clinical signs of infection from the lower extremity noted at this time, no blister, no notable swelling to the lower extremity ORTHO: generalized pain to the entire lower extremity, including areas without ecchymotic changes NEURO: gross and protective sensation diminished - Neurological Exam Neurological exam: Alert - Psychiatric Exam Psychiatric exam: Normal Affect, Normal Mood Results - Vital Signs Recent Vital Signs: Last Vital Signs Temp 98.0 F 02/08/18 15:00 Pulse 63 02/08/18 18:34 Resp 14 02/08/18 15:00 BP 105/58 L 02/08/18 18:34 Pulse Ox 95 02/08/18 15:00 - Labs Result Diagrams: 02/08/18 05:55 02/08/18 08:24 Labs: Laboratory Results - last 24 hr 02/08/18 02/08/18 02/08/18 04:55 05:55 05:55 WBC 17.7 H D RBC 3.13 L Hgb 9.5 L Hct 29.5 L MCV 94.1 D MCH 30.4 MCHC 32.3 L RDW 20.2 H Plt Count 155 MPV 11.2 Neut % (Auto) 88.7 H Lymph % (Auto) 5.7 L [place] % (Auto) 5.3 Eos % (Auto) 0.1 Baso % (Auto) 0.2 Neut # (Auto) 15.7 H Lymph # (Auto) 1.0 [place] # (Auto) 0.9 H Eos # (Auto) 0.0 Baso # (Auto) 0.0 Neutrophils % (Manual) 80 H Band Neutrophils % 7 H Lymphocytes % (Manual) 5 L Monocytes % (Manual) 7 Myelocytes % 1 H Platelet Estimate Normal Large Platelets Present Hypochromasia (manual) Slight Poikilocytosis (manual Slight Anisocytosis (manual) Moderate Ovalocytes Slight Schistocytes Slight pCO2 pO2 HCO3 ABG pH ABG Total CO2 ABG O2 Saturation ABG Base Excess Kermit Test ABG Potassium A-a O2 Difference Glucose Lactate Vent Mode FiO2 Sodium 133 Potassium 6.1 H Chloride 100 Carbon Dioxide 26 Anion Gap 13 BUN 66 H Creatinine 1.2 Est GFR ( Amer) 52 Est GFR (Non-Af Amer) 43 POC Glucose (mg/dL) 207 H Random Glucose 173 H Calcium 9.1 Total Bilirubin 1.0 AST 59 H ALT 83 H D Alkaline Phosphatase 104 Troponin I 0.0820 NT-Pro-B Natriuret Pep Total Protein 6.0 L Albumin 2.9 L D Globulin 3.1 Albumin/Globulin Ratio 0.9 L Arterial Blood Potassium 02/08/18 02/08/18 02/08/18 08:24 10:13 16:15 WBC RBC Hgb Hct MCV MCH MCHC RDW Plt Count MPV Neut % (Auto) Lymph % (Auto) [place] % (Auto) Eos % (Auto) Baso % (Auto) Neut # (Auto) Lymph # (Auto) [place] # (Auto) Eos # (Auto) Baso # (Auto) Neutrophils % (Manual) Band Neutrophils % Lymphocytes % (Manual) Monocytes % (Manual) Myelocytes % Platelet Estimate Large Platelets Hypochromasia (manual) Poikilocytosis (manual Anisocytosis (manual) Ovalocytes Schistocytes pCO2 37 pO2 174 H HCO3 27.5 ABG pH 7.47 H ABG Total CO2 28.0 ABG O2 Saturation 100.1 H ABG Base Excess 3.2 H Kermit Test Yes ABG Potassium 5.4 H A-a O2 Difference 8.0 Glucose 192 H Lactate 1.7 Vent Mode 3lnc FiO2 32.0 Sodium 129.0 L Potassium 5.5 H Chloride 102.0 Carbon Dioxide Anion Gap BUN Creatinine Est GFR ( Amer) Est GFR (Non-Af Amer) POC Glucose (mg/dL) 132 H Random Glucose Calcium Total Bilirubin AST ALT Alkaline Phosphatase Troponin I NT-Pro-B Natriuret Pep 40387 H Total Protein Albumin Globulin Albumin/Globulin Ratio Arterial Blood Potassium 5.4 H Assessment & Plan - Assessment and Plan (Free Text) Assessment: 82 y.o Sammarinese speaking female with PMH of DM, COPD, diastolic CHF, CAD, pacemaker, and dementia with lower extremity ecchymosis, r/o lower extremity fracture Plan: Patient seen and examined Discussed plan in detail with Dr. Allen Labs, vitals reviewed Leukocytosis not likely from lower extremity. No cellulitic changes appreciated. X-rays ordered to r/o lower extremity fracture 2/2 to fall Ordered multipodus boots to offload lower extremity while in bed Will continue to follow patient Thank you for allowing us to participate in patient's care
[2018-02-09] MEDS: Albuterol-Ipratrop 3 mg / 0.5 (3 ml) UD INH SCH ×4 (01:05→19:13)
[2018-02-09 07:36] LABS: BASO % 0.1 % (0.0-2.0); HEMOGLOBIN 9.2 g/dL (12.0-16.0); LYMPH # 1.7 K/uL (1.0-4.3); LYMPH % 10.6 % (20.0-40.0); MEAN CORPUSCULAR HEMOGLOBIN 30.5 pg (27.0-31.0); MEAN CORPUSCULAR HGB CONC 32.8 g/dL (33.0-37.0); MEAN PLATELET VOLUME 11.7 fl (7.2-11.7); MONO # 1.2 K/uL (0.0-0.8); MONO % 7.4 % (0.0-10.0); NEUT # 12.8 K/uL (1.8-7.0); NEUT % 81.9 % (50.0-75.0); NRBC % 0.1 % (0.0-0.0); RBC 3.02 Mil/uL (3.80-5.20); RED CELL DISTRIBUTION WIDTH 20.3 % (11.5-14.5); WHITE BLOOD COUNT 15.6 K/uL (4.8-10.8)
[2018-02-09 08:00] LABS: ALB/GLOB RATIO 0.9 (1.0-2.1); ALBUMIN 2.6 g/dL (3.5-5.0); CALCIUM 8.8 mg/dL (8.4-10.2)
[2018-02-09] MEDS ORDERED: Patient's Own Med (Icosapent Ethyl [Vascepa] 1 GM) PO SCH (09:00)
[2018-02-09] MEDS ORDERED: metOLazone 2.5 MG TAB PO SCH (09:00)
[2018-02-09] MEDS ORDERED: Azithromycin 500 MG in Sodium Chloride 0.9% 250 ML IVPB SCH (09:00)
[2018-02-09] MEDS: Insulin Lispro (humaLOG) 100 Units/ml Inj SC SCH ×4 (09:30→21:58)
[2018-02-09] MEDS: Omega-3-Acid Ethyl Esters 1 GM Cap PO SCH (09:32)
--- NOTE | 2018-02-09 11:35 | RAD ---
PROCEDURE: BILATERAL ANKLE RADIOGRAPHS HISTORY: s/p fall COMPARISON: None available. TECHNIQUE: Three views of each ankle have been submitted for evaluation. FINDINGS: There is extensive osteopenia suggesting advanced osteoporosis. Clinically correlate. No destructive bony lesions appreciated bilaterally or displaced fracture. The bilateral talar domes appear intact with the left ankle mortise is normal. The right ankle mortise is not adequately demonstrated. The oblique view is steep, limited in definition of the mortise. Degenerative cortical sclerosis appreciated the tibiotalar joint as well as the visualize remaining hindfoot joints compatible with degenerative joint disease. Note is made of surgical bernice at the medial distal leg soft tissues of the right lower extremity. Vascular calcifications are identified in the bilateral distal leg soft tissues. IMPRESSION: Advanced osteopenia suggests osteoporosis bilaterally. No displaced fracture or destructive bony lesion bilaterally. Degenerative changes are identified bilaterally, diffusely.
--- NOTE | 2018-02-09 11:36 | RAD ---
PROCEDURE: Radiographs of the bilateral Tibiae and Fibulae. HISTORY: s/p fall COMPARISON: None available. TECHNIQUE: Frontal and lateral views obtained. FINDINGS: BONES: No acute fracture or destructive bony lesion identified bilaterally. Diffuse osteopenia suggests osteoporosis. JOINT SPACES: Incidental degenerative changes seen at the bilateral knees and ankles, mild. SOFT TISSUES: Vascular calcifications are identified within soft tissues of the bilateral legs. OTHER FINDINGS: None. IMPRESSION: No acute fracture or destructive bony lesion bilateral tibia and fibula. Diffuse osteopenia suggests osteoporosis.
[2018-02-09] MEDS: Sodium Chloride 0.9% 250 ML IV SCH (12:03)
[2018-02-09 12:36] LABS: HEMOGLOBIN 8.3 g/dL (12.0-16.0); MEAN CELL VOLUME 98.9 fl (81.0-99.0); MEAN CORPUSCULAR HEMOGLOBIN 29.4 pg (27.0-31.0); MEAN CORPUSCULAR HGB CONC 29.7 g/dL (33.0-37.0); RBC 2.82 Mil/uL (3.80-5.20); RED CELL DISTRIBUTION WIDTH 21.5 % (11.5-14.5); WHITE BLOOD COUNT 11.5 K/uL (4.8-10.8)
[2018-02-09 12:50] LABS: CALCIUM 8.1 mg/dL (8.4-10.2)
[2018-02-09] MEDS ORDERED: Sodium Chloride 0.9% 1,000 ML IV SCH (13:45)
[2018-02-09] MEDS ORDERED: methylPREDNISolone 125 MG in Sodium Chloride 0.9% 50 ML IVPB ONE (14:43)
[2018-02-09 14:57] LABS: VENOUS BLOOD GAS BASE EXCESS -1.7 mmol/L (0.0-2.0); VENOUS BLOOD GAS PCO2 50 mmHg (40-60); VENOUS BLOOD GAS PO2 23 mm/Hg (30-55); VENOUS BLOOD PH 7.31 (7.32-7.43)
--- NOTE | 2018-02-09 15:01 | CP.CCUPN ---
CCU Subjective - Physician Review Subjective (Free Text): 82F admitted yesterday after a Fall at home. Extensive PMH noted, and available H&P summaries and notes reviewed. Patient transferred to ICU today for acute hypotension and AMS with BP unresponsive to initial 1 liter fluid challenge. Additional fluid challenge with NSS given and no appreciable response, Levophed now started. Other vitals and I/O's reviewed. No fever spikes. Lowest recorded BP 70/40, HR 88 sinus ROS: No other pertinent negs or positives on 10+ system review obtainable due to comatose date. Allergies: Oxycodone Home Meds: Albuterol nebs, Lipitor, Coreg, Plavix, Colchicine, Lasix, Neurontin , Vascepa, Tradjenta, Namenda, Zaroxylyn, Protonix, Prednisone, Xarelto, Aldactone, Valsartan. PMSFH: Unknown relative to current disease state. All other Nursing and physician documentation reviewed to date; no new pertinent info noted relevant to current medical problems. EXAM- HEENT: no icterus, no gaze preference, pupils equal and reactive, +Dolls. NECK: No JVD, supple, carotids equal upstroke bilat/no bruits CHEST: decreased BS bases, no wheezes audible HEART: regular, distant, S1S2, no rubs or murmurs ABD: soft, no distention, no tympany, no palp tenderness, BS hypoactive EXT: No peripheral/ digital cyanosis, no calf tenderness or palpable cords, distal pulses intact and symmetrical. There is +3 edema. Area of cellulitic skin with erythema and increased warmth along left posterior distal calf area. SCDS on bilaterally. NEURO: withdraws all extremities to pain sitnulus SKIN: no rashes, warm and dry. LABS: WBC= 11.5 HGB= 8.3 PLTs= 127K Fc=639 K= 3.8 AQ=160 HCO3= 24 BUN/Cr= 55/1.2 BS= 232 NBP= 51362 1st Trop yesterday= negative, 2nd one now after transfer to ICU = 0.19 EKG: dual paced rythym at 80/min, different from A flutter rythym with 5:1 block yesterday. CXR: (yesterdays) bilat congestive changes, no gross consolidation, + small basilar effusions ( my interp). IMPRESSION / MAJOR PROBLEMS NOW: 1. Hypotension 2 medication effect ( Metolazone and recent Aldactone), r/o AMI 2. s/p Fall at Home, prompting admission 3. CHF (with borderline function as per last ECHO November 2017) and with DDysfx; and Pulm HTN 4. Azotemia, / Dehydration , r/o ATN / CKD 5. AMS; r/o cumulative medication effect from [employer]-active meds: Gabapentin, Namenda, vs CVA. 6. Acute resp insuff 2 COPD / CHF 7. h/o paroxysmal A Flutter; CHF, CAD, PPM, HTN, DM II PLAN: 1. Fluid challenges amounting to 2 liters given. Vasopressors started. Check Lactate levels, but doubt hypotension 2 Septic physiology. Check SVO2. Serial Trops. May need inotropic support. 2. Hold all further anti HTN meds and [employer]-active meds for now. All other PO meds placed on hold as well. 3. Anemic with hydrational drop in Hgb to approx. 8, which may drop further with ongoing fluid resuscitation. Consider PRBCs transfusion. No active bleeding noted as she is on Xarelto. 4. Lethargic, but airway reflexes intact and does not now need immediate assisted breathing support or MV. Discussed option for MV support with daughter and no Advance Directives noted. Full Code status now. 5. If no improvement in mental status after buddhism of BP, consider Neurology eval and repeat Brain imaging ( MRI if feasible). 6. Venous Doppler US of the lower extremities. 7. Home meds reveal Prednisone usage, and none re-ordered yesterday. Will give one dose Solumedrol 125mg now. 8. Maintain normoglycemia. CCU Objective - Vital Signs / Intake & Output Vital Signs (Last 4 hours): Vital Signs Temp Pulse Resp BP Pulse Ox 02/09/18 12:00 98.2 F 76 20 78/46 L 90 L Intake and Output (Last 8hrs): Intake & Output 02/08/18 02/09/18 02/09/18 22:59 06:59 14:59 Intake Total 4 Balance 4 Weight 110 lb 9.6 oz Intake: IV 4
[2018-02-09] MEDS ORDERED: Milrinone 1 mg/ml Inj IVP ONE (15:04)
--- NOTE | 2018-02-09 15:04 | PCM.PROC ---
Procedures Attestation:: I certify that I have explained the specified Operation(s) or Procedure(s), risks, benefits and reasonable alternatives to the Patient and/or other person responsible. The opportunity was given to ask questions and all questions answered - Central Line Placement Right Femoral Triple Lumen Catheter Aseptic technique was employed throughout the procedure: Hand Hygiene done prior to procedure, Full sterile barriers (mask, hair cover, sterile gown, sterile gloves), Full body sterile drape, Chloraprep Antiseptic: 2 minute prep for Femoral CVP Time Out Performed: Yes Pt. Placed on Pulse Ox Monitor: Yes Central Line Prep: Chlorhexidine-Alcohol Combination Local Anesthesia Used: Lidocaine 1% Amount of Anesthesia Used (mls): 5 Ultrasound Used for Placement: No Central Line Lumen Inserted: triple Central Line Length: 20 cm Post Procedure: Sutured in Place, Good Blood Return, All Ports Aspirated, Flushed, Capped, Sterile Dressing Applied Secured by: Suture Post procedure dressing: Clear vapor permeable, Chlorhexidine disc (Biopatch) Post Procedure X-Ray: No Patient Tolerated Procedure: Well Immediate Complications: None Additional Comments: Performed under emergent conditions in ICU due to hypotension / Shock state. Femoral site chosen due to unknown coagulopathic status and patient has been on Xarelto.
--- NOTE | 2018-02-09 15:18 | RAD ---
HISTORY: r/o pneumonia COMPARISON: Portable chest 02/08/2018. FINDINGS: LUNGS: Pacemaker and prosthetic cardiac valve reiterated. Post CABG changes again evident. Inspiratory volume appears improved though patchy atelectasis persists at both bases versus infiltrates. PLEURA: Trace bilateral pleural effusions are identified, slightly increased at the right. CARDIOVASCULAR: Cardiomegaly appears stable with borderline pulmonary vascular congestion identified, potentially slightly improved. OSSEOUS STRUCTURES: No significant abnormalities. VISUALIZED UPPER ABDOMEN: Normal. OTHER FINDINGS: None. IMPRESSION: Potential limited improvement in mild pulmonary vascular congestion with stable cardiomegaly noted. Minimal bilateral pleural effusions are appreciated, slightly increased at the right. Limited bibasilar airspace disease stable.
--- NOTE | 2018-02-09 15:20 | CP.PCM.CON ---
History of Present Illness - History of Present Illness History of Present Illness: I was asked to see patient by Dr Lawrence. Patient is a 82 year old female with PMH atrial fibrillation s/p AV fabiana ablation and PPM, HTN, cardiomyopathy who presents with fall. The patient had a witnessed fall at home when ambulating to the bathroom. SHe was brought to [facility] for further evaluation. The patient was found to have anemia and elevated WBC. She was admitted to ICU. She is currently lethargic. Review of Systems - Review of Systems Systems not reviewed;Unavailable: Altered Mental Status Past Patient History - Infectious Disease Hx of Infectious Diseases: None - Tetanus Immunizations Tetanus Immunization: Unknown - Past Medical History & Family History Past Medical History?: Yes - Past Social History Smoking Status: Never Smoked - CARDIAC Hx Cardiac Disorders: Yes Hx Atrial Fibrillation: Yes Hx Congestive Heart Failure: Yes Hx Heart Attack: Yes Hx Hypercholesterolemia: Yes Hx Hypertension: Yes Hx Pacemaker: Yes - PULMONARY Hx Respiratory Disorders: Yes Hx Asthma: Yes Hx Bronchitis: Yes Hx Chronic Obstructive Pulmonary Disease (COPD): Yes Hx Emphysema: Yes Hx Pneumonia: Yes - NEUROLOGICAL Hx Neurological Disorder: Yes Hx Dementia: Yes Hx Parkinson's Disease: Yes - HEENT Hx HEENT Problems: No - RENAL Hx Chronic Kidney Disease: No - ENDOCRINE/METABOLIC Hx Endocrine Disorders: Yes Hx Diabetes Mellitus Type 1: Yes - HEMATOLOGICAL/ONCOLOGICAL Hx Blood Disorders: Yes Hx AIDS: No Hx Anemia: Yes Hx Human Immunodeficiency Virus (HIV): No - INTEGUMENTARY Hx Dermatological Problems: No - MUSCULOSKELETAL/RHEUMATOLOGICAL Hx Musculoskeletal Disorders: Yes Hx Falls: Yes - GASTROINTESTINAL Hx Gastritis: Yes - GENITOURINARY/GYNECOLOGICAL Hx Genitourinary Disorders: No - PSYCHIATRIC Hx Psychophysiologic Disorder: Yes Hx Anxiety: Yes Hx Substance Use: No - SURGICAL HISTORY Hx Appendectomy: Yes Hx Carotid Endarterectomy: Yes Hx Cholecystectomy: Yes Hx Coronary Artery Bypass Graft: Yes - ANESTHESIA Hx Anesthesia: Yes Hx Anesthesia Reactions: No Hx Malignant Hyperthermia: No Meds Allergies/Adverse Reactions: Allergies Allergy/AdvReac Type Severity Reaction Status Date / Time oxycodone Allergy RASH Verified 06/20/17 22:31 - Medications Medications: Current Medications Acetaminophen (Tylenol 325mg Tab) 650 mg PO Q6 PRN PRN Reason: Pain, Mild (1-3) Albuterol/Ipratropium (Duoneb 3 Mg/0.5 Mg (3 Ml) Ud) 3 ml INH RQ6 [facility] Last Admin: 02/09/18 13:28 Dose: 3 ml Atorvastatin Calcium (Lipitor) 40 mg PO DAILY [facility] Last Admin: 02/09/18 09:32 Dose: 40 mg Carvedilol (Coreg) 12.5 mg PO Q12 [facility] Last Admin: 02/09/18 09:27 Dose: Not Given Clopidogrel Bisulfate (Plavix) 75 mg PO DAILY [facility] Last Admin: 02/09/18 09:33 Dose: 75 mg Dextrose (Dextrose 50% Inj) 0 ml IV STAT PRN; Protocol PRN Reason: Hypoglycemia Protocol Dextrose (Glutose 15) 0 gm PO ONCE PRN; Protocol PRN Reason: Hypoglycemia Protocol Gabapentin (Neurontin) 300 mg PO DAILY [facility] Last Admin: 02/09/18 09:33 Dose: 300 mg Glucagon (Glucagen Diagnostic Kit) 0 mg IM STAT PRN; Protocol PRN Reason: Hypoglycemia Protocol Home Med (Icosapent Ethyl [Vascepa]) 1 gm PO DAILY [facility] Home Med (Linagliptin [Tradjenta]) 5 mg PO DAILY [facility] Home Med (Memantine Hcl [Namenda Xr]) 14 mg PO QPM [facility] Azithromycin 500 mg/ Sodium (Chloride) 250 mls @ 250 mls/hr IVPB DAILY [facility] PRN Reason: Protocol Norepinephrine Bitartrate 4 mg (/ Dextrose) 254 mls @ 9.52 mls/hr IV .Q24H [facility] ; 2.5 MCG/MIN PRN Reason: Protocol Last Titration: 02/09/18 14:40 Dose: 12 mcg/min, 45.72 mls/hr Piperacillin Sod/Tazobactam (Sod 2.25 gm/ Sodium Chloride) 100 mls @ 100 mls/ hr IVPB Q6 [facility] PRN Reason: Protocol Milrinone Lactate/Dextrose (Primacor 20mg/100ml D5w) 100 mls @ 5.644 mls/hr IV .[id number] [facility]; 0.375 MCG/KG/MIN PRN Reason: Protocol Ibuprofen (Motrin Tab) 400 mg PO Q6 PRN PRN Reason: Pain, moderate (4-7) Insulin Human Lispro (Humalog) 0 units SC ACHS [facility] PRN Reason: Protocol Last Admin: 02/09/18 12:10 Dose: 2 units Memantine (Namenda) 5 mg PO BID [facility] Last Admin: 02/09/18 09:32 Dose: 5 mg Metolazone (Zaroxolyn) 2.5 mg PO DAILY [facility] Last Admin: 02/09/18 09:35 Dose: 2.5 mg Milrinone Lactate/Dextrose (Primacor) 2.5 mg IVP ONCE ONE Stop: 02/09/18 15:05 [id number] Ethyl Esters (Lovaza) 1 gm PO DAILY [facility] Last Admin: 02/09/18 09:32 Dose: 1 gm Rivaroxaban (Xarelto) 15 mg PO DAILY [facility] PRN Reason: Protocol Last Admin: 02/09/18 09:34 Dose: 15 mg Sitagliptin Phosphate (Januvia) 25 mg PO DAILY [facility] Last Admin: 02/09/18 09:31 Dose: 25 mg Spironolactone (Aldactone) 50 mg PO DAILY [facility] Last Admin: 02/09/18 09:23 Dose: 50 mg Valsartan (Diovan) 160 mg PO DAILY [facility] Last Admin: 02/09/18 09:29 Dose: Not Given Physical Exam - Constitutional Appears: Chronically Ill - Head Exam Head Exam: NORMAL INSPECTION - Eye Exam Eye Exam: Normal appearance - ENT Exam ENT Exam: Mucous Membranes Dry - Neck Exam Neck exam: Positive for: Normal Inspection - Respiratory Exam Respiratory Exam: Decreased Breath Sounds - Cardiovascular Exam Cardiovascular Exam: REGULAR RHYTHM - GI/Abdominal Exam GI & Abdominal Exam: Normal Bowel Sounds - Rectal Exam Rectal Exam: Deferred - Extremities Exam Extremities exam: Positive for: pedal edema - Back Exam Back exam: NORMAL INSPECTION - Skin Skin Exam: Normal Color Results - Vital Signs Recent Vital Signs: Last Vital Signs Temp 98.2 F 02/09/18 12:00 Pulse 76 02/09/18 12:00 Resp 20 02/09/18 12:00 BP 78/46 L 02/09/18 12:00 Pulse Ox 90 L 02/09/18 12:00 - Labs Result Diagrams: 02/09/18 12:00 02/09/18 12:00 Labs: Laboratory Results - last 24 hr 02/08/18 02/08/18 02/09/18 16:15 21:45 05:10 WBC RBC Hgb Hct MCV MCH MCHC RDW Plt Count MPV Neut % (Auto) Lymph % (Auto) Garfield % (Auto) Eos % (Auto) Baso % (Auto) Neut # (Auto) Lymph # (Auto) Garfield # (Auto) Eos # (Auto) Baso # (Auto) pO2 VBG pH VBG pCO2 VBG HCO3 VBG Total CO2 VBG O2 Sat (Calc) VBG Base Excess VBG Potassium A-a O2 Difference Glucose Lactate FiO2 Blood Gas Comments Crit Value Called To Crit Value Called By Crit Value Read Back Blood Gas Notified Time Sodium Potassium Chloride Carbon Dioxide Anion Gap BUN Creatinine Est GFR ( Amer) Est GFR (Non-Af Amer) POC Glucose (mg/dL) 132 H 114 H 217 H Random Glucose Calcium Total Bilirubin AST ALT Alkaline Phosphatase Troponin I NT-Pro-B Natriuret Pep Total Protein Albumin Globulin Albumin/Globulin Ratio Venous Blood Potassium Blood Type Antibody Screen Crossmatch BBK History Checked 02/09/18 02/09/18 02/09/18 06:00 06:00 11:55 WBC 15.6 H RBC 3.02 L Hgb 9.2 L Hct 28.1 L MCV 93.0 MCH 30.5 MCHC 32.8 L RDW 20.3 H Plt Count 149 MPV 11.7 Neut % (Auto) 81.9 H Lymph % (Auto) 10.6 L Garfield % (Auto) 7.4 Eos % (Auto) 0.0 Baso % (Auto) 0.1 Neut # (Auto) 12.8 H Lymph # (Auto) 1.7 Garfield # (Auto) 1.2 H Eos # (Auto) 0.0 Baso # (Auto) 0.0 pO2 VBG pH VBG pCO2 VBG HCO3 VBG Total CO2 VBG O2 Sat (Calc) VBG Base Excess VBG Potassium A-a O2 Difference Glucose Lactate FiO2 Blood Gas Comments Crit Value Called To Crit Value Called By Crit Value Read Back Blood Gas Notified Time Sodium 137 Potassium 4.1 Chloride 101 Carbon Dioxide 28 Anion Gap 12 BUN 54 H Creatinine 1.2 Est GFR ( Amer) 52 Est GFR (Non-Af Amer) 43 POC Glucose (mg/dL) 238 H Random Glucose 205 H Calcium 8.8 Total Bilirubin 1.0 AST 67 H ALT 112 H D Alkaline Phosphatase 115 Troponin I NT-Pro-B Natriuret Pep Total Protein 5.4 L Albumin 2.6 L Globulin 2.8 Albumin/Globulin Ratio 0.9 L Venous Blood Potassium Blood Type Antibody Screen Crossmatch BBK History Checked 02/09/18 02/09/18 02/09/18 12:00 12:00 13:30 WBC 11.5 H RBC 2.82 L Hgb 8.3 L Hct 27.9 L MCV 98.9 D MCH 29.4 MCHC 29.7 L RDW 21.5 H Plt Count 127 L D MPV Neut % (Auto) Lymph % (Auto) Garfield % (Auto) Eos % (Auto) Baso % (Auto) Neut # (Auto) Lymph # (Auto) Garfield # (Auto) Eos # (Auto) Baso # (Auto) pO2 VBG pH VBG pCO2 VBG HCO3 VBG Total CO2 VBG O2 Sat (Calc) VBG Base Excess VBG Potassium A-a O2 Difference Glucose Lactate FiO2 Blood Gas Comments Crit Value Called To Crit Value Called By Crit Value Read Back Blood Gas Notified Time Sodium 135 Potassium 3.8 Chloride 103 Carbon Dioxide 24 Anion Gap 12 BUN 55 H Creatinine 1.2 Est GFR ( Amer) 52 Est GFR (Non-Af Amer) 43 POC Glucose (mg/dL) Random Glucose 232 H Calcium 8.1 L Total Bilirubin AST ALT Alkaline Phosphatase Troponin I 0.1900 H* NT-Pro-B Natriuret Pep 31097 H Total Protein Albumin Globulin Albumin/Globulin Ratio Venous Blood Potassium Blood Type Antibody Screen Crossmatch BBK History Checked 02/09/18 02/09/18 13:40 14:53 WBC RBC Hgb Hct MCV MCH MCHC RDW Plt Count MPV Neut % (Auto) Lymph % (Auto) Garfield % (Auto) Eos % (Auto) Baso % (Auto) Neut # (Auto) Lymph # (Auto) Garfield # (Auto) Eos # (Auto) Baso # (Auto) pO2 23 L VBG pH 7.31 L VBG pCO2 50 VBG HCO3 21.9 VBG Total CO2 26.7 VBG O2 Sat (Calc) 39.7 L VBG Base Excess -1.7 L VBG Potassium 3.6 A-a O2 Difference 128.0 Glucose 193 H Lactate 1.6 FiO2 30.0 Blood Gas Comments /2/m [email or web address] Crit Value Called To Dr [email or web address] Crit Value Called By 15 Crit Value Read Back Y Blood Gas Notified Time 1456 Sodium 137.0 Potassium Chloride 110.0 H Carbon Dioxide Anion Gap BUN Creatinine Est GFR ( Amer) Est GFR (Non-Af Amer) POC Glucose (mg/dL) Random Glucose Calcium Total Bilirubin AST ALT Alkaline Phosphatase Troponin I NT-Pro-B Natriuret Pep Total Protein Albumin Globulin Albumin/Globulin Ratio Venous Blood Potassium 3.6 Blood Type AB POSITIVE Antibody Screen Negative Crossmatch See Detail BBK History Checked Patient has bt - EKG Data EKG Interpreted by: Myself Assessment & Plan (1) Hypotension Assessment and Plan: will need blood culture urine culture. will monitor, givne blood transfusion. may need pressors. Status: Acute (2) Cardiomyopathy Assessment and Plan: will monitor but no t volume overlaoded. Status: Acute
--- NOTE | 2018-02-09 15:28 | CARD ---
APPROVED REPORT EKG Measurement Heart [id number] <Conclusion> AV dual-paced rhythm Abnormal ECG
--- NOTE | 2018-02-09 16:23 | CP.PCM.CON ---
History of Present Illness - History of Present Illness History of Present Illness: Pulmonary consult for a 82 y/o F with Extensive chronic medical conditions, including long Hx of admissions for COPD, Emphysema, also Hx of CHF, CAD, A Fib with fabiana ablation, NIDDM, CABG, CVA/TIA, Dementia. Pt was bougt to [facility] via EMS, on 02/08/18 for S/P witnessed fall while at home on her way to the bathroom landing on the rug. Pt was c/o of whole body ache. Worsening symptoms: On evaluation was found with anemia, elevated WBC, SOB, CXR showing infiltrates. After evaluation, Pt was admitted to ICU unit. Aggravated factor: Unable to cooperate with medical informations. As per records: No fever, chills, n/v/d, abdominal pain, CP, palpitations, cough, urinary symptoms, sick contact, recent travel out of [facility]. Review of Systems - Review of Systems Systems not reviewed;Unavailable: Acuity of Condition, Altered Mental Status Past Patient History - Infectious Disease Hx of Infectious Diseases: None - Tetanus Immunizations Tetanus Immunization: Unknown - Past Medical History & Family History Past Medical History?: Yes Pertinent Family History: Unknown - Past Social History Smoking Status: Never Smoked Alcohol: None Drugs: Denies Home Situation {Lives}: Alone - CARDIAC Hx Cardiac Disorders: Yes Hx Atrial Fibrillation: Yes Hx Congestive Heart Failure: Yes Hx Heart Attack: Yes Hx Hypercholesterolemia: Yes Hx Hypertension: Yes Hx Pacemaker: Yes - PULMONARY Hx Respiratory Disorders: Yes Hx Asthma: Yes Hx Bronchitis: Yes Hx Chronic Obstructive Pulmonary Disease (COPD): Yes Hx Emphysema: Yes Hx Pneumonia: Yes - NEUROLOGICAL Hx Neurological Disorder: Yes Hx Dementia: Yes Hx Parkinson's Disease: Yes - HEENT Hx HEENT Problems: No - RENAL Hx Chronic Kidney Disease: No - ENDOCRINE/METABOLIC Hx Endocrine Disorders: Yes Hx Diabetes Mellitus Type 1: Yes - HEMATOLOGICAL/ONCOLOGICAL Hx Blood Disorders: Yes Hx AIDS: No Hx Anemia: Yes Hx Human Immunodeficiency Virus (HIV): No - INTEGUMENTARY Hx Dermatological Problems: No - MUSCULOSKELETAL/RHEUMATOLOGICAL Hx Musculoskeletal Disorders: Yes Hx Falls: Yes - GASTROINTESTINAL Hx Gastritis: Yes - GENITOURINARY/GYNECOLOGICAL Hx Genitourinary Disorders: No - PSYCHIATRIC Hx Psychophysiologic Disorder: Yes Hx Anxiety: Yes Hx Substance Use: No - SURGICAL HISTORY Hx Appendectomy: Yes Hx Carotid Endarterectomy: Yes Hx Cholecystectomy: Yes Hx Coronary Artery Bypass Graft: Yes - ANESTHESIA Hx Anesthesia: Yes Hx Anesthesia Reactions: No Hx Malignant Hyperthermia: No Meds Allergies/Adverse Reactions: Allergies Allergy/AdvReac Type Severity Reaction Status Date / Time oxycodone Allergy RASH Verified 06/20/17 22:31 - Medications Medications: Current Medications Acetaminophen (Tylenol 325mg Tab) 650 mg PO Q6 PRN PRN Reason: Pain, Mild (1-3) Albuterol/Ipratropium (Duoneb 3 Mg/0.5 Mg (3 Ml) Ud) 3 ml INH RQ6 [facility] Last Admin: 02/09/18 13:28 Dose: 3 ml Atorvastatin Calcium (Lipitor) 40 mg PO DAILY [facility] Last Admin: 02/09/18 09:32 Dose: 40 mg Carvedilol (Coreg) 12.5 mg PO Q12 [facility] Last Admin: 02/09/18 09:27 Dose: Not Given Clopidogrel Bisulfate (Plavix) 75 mg PO DAILY [facility] Last Admin: 02/09/18 09:33 Dose: 75 mg Dextrose (Dextrose 50% Inj) 0 ml IV STAT PRN; Protocol PRN Reason: Hypoglycemia Protocol Dextrose (Glutose 15) 0 gm PO ONCE PRN; Protocol PRN Reason: Hypoglycemia Protocol Gabapentin (Neurontin) 300 mg PO DAILY [facility] Last Admin: 02/09/18 09:33 Dose: 300 mg Glucagon (Glucagen Diagnostic Kit) 0 mg IM STAT PRN; Protocol PRN Reason: Hypoglycemia Protocol Home Med (Icosapent Ethyl [Vascepa]) 1 gm PO DAILY [facility] Home Med (Linagliptin [Tradjenta]) 5 mg PO DAILY [facility] Home Med (Memantine Hcl [Namenda Xr]) 14 mg PO QPM [facility] Azithromycin 500 mg/ Sodium (Chloride) 250 mls @ 250 mls/hr IVPB DAILY [facility] PRN Reason: Protocol Norepinephrine Bitartrate 4 mg (/ Dextrose) 254 mls @ 9.52 mls/hr IV .Q24H [facility] ; 2.5 MCG/MIN PRN Reason: Protocol Last Titration: 02/09/18 14:40 Dose: 12 mcg/min, 45.72 mls/hr Piperacillin Sod/Tazobactam (Sod 2.25 gm/ Sodium Chloride) 100 mls @ 100 mls/ hr IVPB Q6 [facility] PRN Reason: Protocol Milrinone Lactate/Dextrose (Primacor 20mg/100ml D5w) 100 mls @ 5.644 mls/hr IV .[id number] [facility]; 0.375 MCG/KG/MIN PRN Reason: Protocol Ibuprofen (Motrin Tab) 400 mg PO Q6 PRN PRN Reason: Pain, moderate (4-7) Insulin Human Lispro (Humalog) 0 units SC ACHS [facility] PRN Reason: Protocol Last Admin: 02/09/18 12:10 Dose: 2 units Memantine (Namenda) 5 mg PO BID [facility] Last Admin: 02/09/18 09:32 Dose: 5 mg Metolazone (Zaroxolyn) 2.5 mg PO DAILY [facility] Last Admin: 02/09/18 09:35 Dose: 2.5 mg [id number] Ethyl Esters (Lovaza) 1 gm PO DAILY [facility] Last Admin: 02/09/18 09:32 Dose: 1 gm Rivaroxaban (Xarelto) 15 mg PO DAILY [facility] PRN Reason: Protocol Last Admin: 02/09/18 09:34 Dose: 15 mg Sitagliptin Phosphate (Januvia) 25 mg PO DAILY [facility] Last Admin: 02/09/18 09:31 Dose: 25 mg Spironolactone (Aldactone) 50 mg PO DAILY [facility] Last Admin: 02/09/18 09:23 Dose: 50 mg Valsartan (Diovan) 160 mg PO DAILY [facility] Last Admin: 02/09/18 09:29 Dose: Not Given Physical Exam - Constitutional Appears: Chronically Ill - Head Exam Head Exam: NORMAL INSPECTION - Eye Exam Eye Exam: PERRL - ENT Exam ENT Exam: Normal Exam - Neck Exam Neck exam: Positive for: Normal Inspection - Respiratory Exam Respiratory Exam: Decreased Breath Sounds, Rhonchi, Wheezes - Cardiovascular Exam Cardiovascular Exam: REGULAR RHYTHM - GI/Abdominal Exam GI & Abdominal Exam: Normal Bowel Sounds, Soft - Extremities Exam Extremities exam: Positive for: pedal edema - Back Exam Back exam: NORMAL INSPECTION - Neurological Exam Additional comments: Lethargic - Skin Skin Exam: Warm Results - Vital Signs Recent Vital Signs: Last Vital Signs Temp 98.2 F 02/09/18 12:00 Pulse 76 02/09/18 12:00 Resp 20 02/09/18 12:00 BP 78/46 L 02/09/18 12:00 Pulse Ox 90 L 02/09/18 12:00 reviewed J.P. - Labs Result Diagrams: 02/10/18 05:30 02/10/18 05:30 Labs: Laboratory Results - last 24 hr 02/08/18 02/08/18 02/09/18 16:15 21:45 05:10 WBC RBC Hgb Hct MCV MCH MCHC RDW Plt Count MPV Neut % (Auto) Lymph % (Auto) [place] % (Auto) Eos % (Auto) Baso % (Auto) Neut # (Auto) Lymph # (Auto) [place] # (Auto) Eos # (Auto) Baso # (Auto) pO2 VBG pH VBG pCO2 VBG HCO3 VBG Total CO2 VBG O2 Sat (Calc) VBG Base Excess VBG Potassium A-a O2 Difference Glucose Lactate FiO2 Blood Gas Comments Crit Value Called To Crit Value Called By Crit Value Read Back Blood Gas Notified Time Sodium Potassium Chloride Carbon Dioxide Anion Gap BUN Creatinine Est GFR ( Amer) Est GFR (Non-Af Amer) POC Glucose (mg/dL) 132 H 114 H 217 H Random Glucose Calcium Total Bilirubin AST ALT Alkaline Phosphatase Troponin I NT-Pro-B Natriuret Pep Total Protein Albumin Globulin Albumin/Globulin Ratio Venous Blood Potassium Blood Type Antibody Screen Crossmatch BBK History Checked 02/09/18 02/09/18 02/09/18 06:00 06:00 11:55 WBC 15.6 H RBC 3.02 L Hgb 9.2 L Hct 28.1 L MCV 93.0 MCH 30.5 MCHC 32.8 L RDW 20.3 H Plt Count 149 MPV 11.7 Neut % (Auto) 81.9 H Lymph % (Auto) 10.6 L [place] % (Auto) 7.4 Eos % (Auto) 0.0 Baso % (Auto) 0.1 Neut # (Auto) 12.8 H Lymph # (Auto) 1.7 [place] # (Auto) 1.2 H Eos # (Auto) 0.0 Baso # (Auto) 0.0 pO2 VBG pH VBG pCO2 VBG HCO3 VBG Total CO2 VBG O2 Sat (Calc) VBG Base Excess VBG Potassium A-a O2 Difference Glucose Lactate FiO2 Blood Gas Comments Crit Value Called To Crit Value Called By Crit Value Read Back Blood Gas Notified Time Sodium 137 Potassium 4.1 Chloride 101 Carbon Dioxide 28 Anion Gap 12 BUN 54 H Creatinine 1.2 Est GFR ( Amer) 52 Est GFR (Non-Af Amer) 43 POC Glucose (mg/dL) 238 H Random Glucose 205 H Calcium 8.8 Total Bilirubin 1.0 AST 67 H ALT 112 H D Alkaline Phosphatase 115 Troponin I NT-Pro-B Natriuret Pep Total Protein 5.4 L Albumin 2.6 L Globulin 2.8 Albumin/Globulin Ratio 0.9 L Venous Blood Potassium Blood Type Antibody Screen Crossmatch BBK History Checked 02/09/18 02/09/18 02/09/18 12:00 12:00 13:30 WBC 11.5 H RBC 2.82 L Hgb 8.3 L Hct 27.9 L MCV 98.9 D MCH 29.4 MCHC 29.7 L RDW 21.5 H Plt Count 127 L D MPV Neut % (Auto) Lymph % (Auto) [place] % (Auto) Eos % (Auto) Baso % (Auto) Neut # (Auto) Lymph # (Auto) [place] # (Auto) Eos # (Auto) Baso # (Auto) pO2 VBG pH VBG pCO2 VBG HCO3 VBG Total CO2 VBG O2 Sat (Calc) VBG Base Excess VBG Potassium A-a O2 Difference Glucose Lactate FiO2 Blood Gas Comments Crit Value Called To Crit Value Called By Crit Value Read Back Blood Gas Notified Time Sodium 135 Potassium 3.8 Chloride 103 Carbon Dioxide 24 Anion Gap 12 BUN 55 H Creatinine 1.2 Est GFR ( Amer) 52 Est GFR (Non-Af Amer) 43 POC Glucose (mg/dL) Random Glucose 232 H Calcium 8.1 L Total Bilirubin AST ALT Alkaline Phosphatase Troponin I 0.1900 H* NT-Pro-B Natriuret Pep 46156 H Total Protein Albumin Globulin Albumin/Globulin Ratio Venous Blood Potassium Blood Type Antibody Screen Crossmatch BBK History Checked 02/09/18 02/09/18 02/09/18 13:40 14:53 15:44 WBC RBC Hgb Hct MCV MCH MCHC RDW Plt Count MPV Neut % (Auto) Lymph % (Auto) [place] % (Auto) Eos % (Auto) Baso % (Auto) Neut # (Auto) Lymph # (Auto) [place] # (Auto) Eos # (Auto) Baso # (Auto) pO2 23 L VBG pH 7.31 L VBG pCO2 50 VBG HCO3 21.9 VBG Total CO2 26.7 VBG O2 Sat (Calc) 39.7 L VBG Base Excess -1.7 L VBG Potassium 3.6 A-a O2 Difference 128.0 Glucose 193 H Lactate 1.6 FiO2 30.0 Blood Gas Comments /2/m ncvbg Crit Value Called To Dr [email or web address] Crit Value Called By 15 Crit Value Read Back Y Blood Gas Notified Time 1456 Sodium 137.0 Potassium Chloride 110.0 H Carbon Dioxide Anion Gap BUN Creatinine Est GFR ( Amer) Est GFR (Non-Af Amer) POC Glucose (mg/dL) 187 H Random Glucose Calcium Total Bilirubin AST ALT Alkaline Phosphatase Troponin I NT-Pro-B Natriuret Pep Total Protein Albumin Globulin Albumin/Globulin Ratio Venous Blood Potassium 3.6 Blood Type AB POSITIVE Antibody Screen Negative Crossmatch See Detail BBK History Checked Patient has bt reviewed J.P. - EKG Data EKG comments: reviewed J.P. - Impressions Impression: Hip/Pelvis X-ray, Tibia/Fistula X-Ray, Ankle X-Rays All reviewed, No Fx, J.P. - Imaging and Cardiology Chest x-ray Status: Report reviewed by me (JSantosP.) CT scan - head Status: Report reviewed by me (JSantosP.) Assessment & Plan (1) Acute respiratory insufficiency Status: Acute Priority: High (2) Pneumonia Status: Acute Priority: High (3) COPD exacerbation Status: Acute Priority: High (4) CHF (congestive heart failure) Status: Chronic Priority: High - Assessment and Plan (Free Text) Plan: CT Chest when stable, continue NC O2 2 L/M, Zosyn, Duoneb, and rest of Tx. ICU time: 60 minutes. - Date & Time Date: 02/09/18 Time: 16:00
[2018-02-09] MEDS: Milrinone 20mg/100ml D5W 100 ML IV SCH (17:42)
[2018-02-09 19:52] LABS: SQUAMOUS EPITHIAL < 1 /hpf (0-5); URINE BACTERIA RARE (<OCC); URINE BILIRUBIN NEGATIVE (NEGATIVE); URINE BLOOD SMALL (NEGATIVE); URINE CLARITY CLOUDY (Clear); URINE COLOR YELLOW (YELLOW); URINE GLUCOSE (UA) NEG (Normal); URINE LEUKOCYTE ESTERASE LARGE Leu/uL (Negative); URINE PROTEIN 30 mg/dL (NEGATIVE); URINE UROBILINOGEN 0.2-1.0 mg/dL (0.2-1.0); WBC CLUMPS FEW /hpf
[2018-02-09] MEDS: Clindamycin 600mg/50ml D5W 600 MG/50 ML VIAL IVPB SCH (22:00)
--- NOTE | 2018-02-09 22:40 | CP.PCM.PN ---
Subjective - Date & Time of Evaluation Date of Evaluation: 02/09/18 Time of Evaluation: 15:00 - Subjective Subjective: Patient was noted to be lethargic in the morning. Bp was very low. She was given 500 cc saline bolus and transferred to ICU. Noted to be in resp distress. recent labs showed elevated probnp Objective - Vital Signs/Intake and Output Vital Signs (last 24 hours): Temp Pulse Resp BP Pulse Ox 97.8 F 67 20 100/58 L 100 02/09/18 20:00 02/09/18 22:00 02/09/18 22:00 02/09/18 22:00 02/09/18 22:00 Intake and Output: 02/09/18 02/10/18 18:59 06:59 Intake Total 4 230.8 Balance 4 230.8 - Medications Medications: Current Medications Acetaminophen (Tylenol 325mg Tab) 650 mg PO Q6 PRN PRN Reason: Pain, Mild (1-3) Albuterol/Ipratropium (Duoneb 3 Mg/0.5 Mg (3 Ml) Ud) 3 ml INH RQ6 [facility] Last Admin: 02/09/18 19:13 Dose: 3 ml Atorvastatin Calcium (Lipitor) 40 mg PO DAILY [facility] Last Admin: 02/09/18 09:32 Dose: 40 mg Carvedilol (Coreg) 12.5 mg PO Q12 [facility] Last Admin: 02/09/18 09:27 Dose: Not Given Clopidogrel Bisulfate (Plavix) 75 mg PO DAILY [facility] Last Admin: 02/09/18 09:33 Dose: 75 mg Dextrose (Dextrose 50% Inj) 0 ml IV STAT PRN; Protocol PRN Reason: Hypoglycemia Protocol Dextrose (Glutose 15) 0 gm PO ONCE PRN; Protocol PRN Reason: Hypoglycemia Protocol Gabapentin (Neurontin) 300 mg PO DAILY [facility] Last Admin: 02/09/18 09:33 Dose: 300 mg Glucagon (Glucagen Diagnostic Kit) 0 mg IM STAT PRN; Protocol PRN Reason: Hypoglycemia Protocol Home Med (Icosapent Ethyl [Vascepa]) 1 gm PO DAILY [facility] Home Med (Linagliptin [Tradjenta]) 5 mg PO DAILY [facility] Home Med (Memantine Hcl [Namenda Xr]) 14 mg PO QPM [facility] Norepinephrine Bitartrate 4 mg (/ Dextrose) 254 mls @ 9.52 mls/hr IV .Q24H [facility] ; 2.5 MCG/MIN PRN Reason: Protocol Last Titration: 02/09/18 21:40 Dose: 17.5 mcg/min, 66.67 mls/hr Piperacillin Sod/Tazobactam (Sod 2.25 gm/ Sodium Chloride) 100 mls @ 100 mls/ hr IVPB Q6 [facility] PRN Reason: Protocol Last Admin: 02/09/18 22:01 Dose: 100 mls/hr Milrinone Lactate/Dextrose (Primacor 20mg/100ml D5w) 100 mls @ 5.644 mls/hr IV .[id number] [facility]; 0.375 MCG/KG/MIN PRN Reason: Protocol Last Admin: 02/09/18 17:42 Dose: 0.375 mcg/kg/min, 5.644 mls/hr Clindamycin Phosphate (Cleocin) 600 mg in 50 mls @ 50 mls/hr IVPB Q12 [facility] PRN Reason: Protocol Last Admin: 02/09/18 22:00 Dose: 50 mls/hr Ibuprofen (Motrin Tab) 400 mg PO Q6 PRN PRN Reason: Pain, moderate (4-7) Insulin Human Lispro (Humalog) 0 units SC ACHS [facility] PRN Reason: Protocol Last Admin: 02/09/18 21:58 Dose: Not Given Memantine (Namenda) 5 mg PO BID [facility] Last Admin: 02/09/18 16:47 Dose: Not Given Metolazone (Zaroxolyn) 2.5 mg PO DAILY [facility] Last Admin: 02/09/18 09:35 Dose: 2.5 mg [id number] Ethyl Esters (Lovaza) 1 gm PO DAILY [facility] Last Admin: 02/09/18 09:32 Dose: 1 gm Rivaroxaban (Xarelto) 15 mg PO DAILY [facility] PRN Reason: Protocol Last Admin: 02/09/18 09:34 Dose: 15 mg Sitagliptin Phosphate (Januvia) 25 mg PO DAILY [facility] Last Admin: 02/09/18 09:31 Dose: 25 mg Spironolactone (Aldactone) 50 mg PO DAILY [facility] Last Admin: 02/09/18 09:23 Dose: 50 mg Valsartan (Diovan) 160 mg PO DAILY [facility] Last Admin: 02/09/18 09:29 Dose: Not Given - Labs Labs: 02/09/18 12:00 02/09/18 12:00 - Constitutional Appears: In Acute Distress, Chronically Ill - Head Exam Head Exam: NORMAL INSPECTION - ENT Exam ENT Exam: Mucous Membranes Dry - Respiratory Exam Respiratory Exam: Decreased Breath Sounds, Rales - Cardiovascular Exam Cardiovascular Exam: Tachycardia - GI/Abdominal Exam GI & Abdominal Exam: Normal Bowel Sounds Assessment and Plan (1) CHF (congestive heart failure) Status: Chronic (2) Cardiomyopathy Status: Acute (3) Pneumonia Status: Acute (4) Hyperkalemia Status: Acute (5) Hypotension Status: Acute (6) COPD (chronic obstructive pulmonary disease) Status: Acute (7) Diabetes mellitus type 2 in nonobese Status: Acute - Assessment and Plan (Free Text) Plan: give
[2018-02-10] MEDS: Albuterol-Ipratrop 3 mg / 0.5 (3 ml) UD INH SCH ×4 (01:05→18:59)
[2018-02-10 04:39] LABS: VENOUS BLOOD GAS BASE EXCESS -5.3 mmol/L (0.0-2.0); VENOUS BLOOD GAS PCO2 41 mmHg (40-60); VENOUS BLOOD GAS PO2 44 mm/Hg (30-55); VENOUS BLOOD PH 7.31 (7.32-7.43)
--- NOTE | 2018-02-10 04:47 | CON ---
DATE: 02/09/2018 INFECTIOUS DISEASE CONSULTATION HISTORY OF PRESENT ILLNESS: The patient is an 82-year-old female who was brought to the hospital after having a fall. The patient is also on Xarelto. Family gives a history of having been short of breath for 3 days. The patient also has a past medical history of cardiomyopathy. On initial labs in the hospital, she was noted to have an elevated WBC. She was then admitted to ICU. At present, when examined, she is significantly lethargic. History is taken from chart and from staff. PHYSICAL EXAMINATION: GENERAL: She appears quite ill. HEENT: Within normal limits. NECK: Supple. LUNGS: She has decreased breath sounds bilaterally. HEART: Regular sinus rhythm. ABDOMEN: Soft. Positive bowel sounds. EXTREMITIES: Has 1 to 2+ pedal edema. LABORATORY DATA: I have ordered blood and urine cultures. Labs show white count of 17.7, hemoglobin 9.5, platelet count 155, polys 88. BUN is 54, creatinine is 1.2, and GFR is 43. Cultures are pending. Chest x-ray shows pulmonary vascular changes with bilateral plural effusions, limited bilateral airspace disease. ASSESSMENT AND PLAN: At present time, I feel that she has possible pneumonia, congestive heart failure. I have started her on clindamycin and will continue Zosyn. Zithromax has been discontinued. Galileo Tyson MD MTDD
[2018-02-10 06:50] LABS: ALB/GLOB RATIO 0.9 (1.0-2.1); ALBUMIN 2.5 g/dL (3.5-5.0); CALCIUM 7.9 mg/dL (8.4-10.2)
[2018-02-10 07:00] LABS: HEMOGLOBIN 11.2 g/dL (12.0-16.0); MEAN CELL VOLUME 90.2 fl (81.0-99.0); MEAN CORPUSCULAR HEMOGLOBIN 29.4 pg (27.0-31.0); MEAN CORPUSCULAR HGB CONC 32.6 g/dL (33.0-37.0); RBC 3.82 Mil/uL (3.80-5.20); RED CELL DISTRIBUTION WIDTH 20.5 % (11.5-14.5); WHITE BLOOD COUNT 13.6 K/uL (4.8-10.8)
[2018-02-10] MEDS: Clindamycin 600mg/50ml D5W 600 MG/50 ML VIAL IVPB SCH ×2 (08:37→21:26)
[2018-02-10] MEDS: Insulin Lispro (humaLOG) 100 Units/ml Inj SC SCH ×4 (08:43→21:25)
[2018-02-10] MEDS: Omega-3-Acid Ethyl Esters 1 GM Cap PO SCH (08:55)
--- NOTE | 2018-02-10 11:31 | CP.PCM.PN ---
Subjective - Date & Time of Evaluation Date of Evaluation: 02/10/18 Time of Evaluation: 10:20 - Subjective Subjective: remains lethargic. Objective - Vital Signs/Intake and Output Vital Signs (last 24 hours): Temp Pulse Resp BP Pulse Ox 97.8 F 61 15 108/58 L 100 02/10/18 08:00 02/10/18 08:00 02/10/18 08:00 02/10/18 08:00 02/10/18 08:00 Intake and Output: 02/10/18 02/10/18 06:59 18:59 Intake Total 1443.8 0 Output Total 900 Balance 543.8 0 - Medications Medications: Current Medications Acetaminophen (Tylenol 325mg Tab) 650 mg PO Q6 PRN PRN Reason: Pain, Mild (1-3) Albuterol/Ipratropium (Duoneb 3 Mg/0.5 Mg (3 Ml) Ud) 3 ml INH RQ6 [facility] Last Admin: 02/10/18 07:32 Dose: 3 ml Atorvastatin Calcium (Lipitor) 40 mg PO DAILY [facility] Last Admin: 02/09/18 09:32 Dose: 40 mg Carvedilol (Coreg) 12.5 mg PO Q12 [facility] Last Admin: 02/09/18 09:27 Dose: Not Given Clopidogrel Bisulfate (Plavix) 75 mg PO DAILY [facility] Last Admin: 02/09/18 09:33 Dose: 75 mg Dextrose (Dextrose 50% Inj) 0 ml IV STAT PRN; Protocol PRN Reason: Hypoglycemia Protocol Dextrose (Glutose 15) 0 gm PO ONCE PRN; Protocol PRN Reason: Hypoglycemia Protocol Gabapentin (Neurontin) 300 mg PO DAILY [facility] Last Admin: 02/09/18 09:33 Dose: 300 mg Glucagon (Glucagen Diagnostic Kit) 0 mg IM STAT PRN; Protocol PRN Reason: Hypoglycemia Protocol Home Med (Icosapent Ethyl [Vascepa]) 1 gm PO DAILY [facility] Home Med (Linagliptin [Tradjenta]) 5 mg PO DAILY [facility] Home Med (Memantine Hcl [Namenda Xr]) 14 mg PO QPM [facility] Norepinephrine Bitartrate 4 mg (/ Dextrose) 254 mls @ 9.52 mls/hr IV .Q24H [facility] ; 2.5 MCG/MIN PRN Reason: Protocol Last Titration: 02/10/18 08:46 Dose: 2.5 mcg/min, 9.52 mls/hr Piperacillin Sod/Tazobactam (Sod 2.25 gm/ Sodium Chloride) 100 mls @ 100 mls/ hr IVPB Q6 [facility] PRN Reason: Protocol Last Admin: 02/10/18 09:00 Dose: 100 mls/hr Milrinone Lactate/Dextrose (Primacor 20mg/100ml D5w) 100 mls @ 5.644 mls/hr IV .[id number] [facility]; 0.375 MCG/KG/MIN PRN Reason: Protocol Last Admin: 02/09/18 17:42 Dose: 0.375 mcg/kg/min, 5.644 mls/hr Clindamycin Phosphate (Cleocin) 600 mg in 50 mls @ 50 mls/hr IVPB Q12 [facility] PRN Reason: Protocol Last Admin: 02/10/18 08:37 Dose: 50 mls/hr Ibuprofen (Motrin Tab) 400 mg PO Q6 PRN PRN Reason: Pain, moderate (4-7) Insulin Human Lispro (Humalog) 0 units SC ACHS [facility] PRN Reason: Protocol Last Admin: 02/10/18 08:43 Dose: 3 units Memantine (Namenda) 5 mg PO BID [facility] Last Admin: 02/10/18 08:55 Dose: 5 mg Metolazone (Zaroxolyn) 2.5 mg PO DAILY [facility] Last Admin: 02/09/18 09:35 Dose: 2.5 mg [id number] Ethyl Esters (Lovaza) 1 gm PO DAILY [facility] Last Admin: 02/10/18 08:55 Dose: Not Given Rivaroxaban (Xarelto) 15 mg PO DAILY [facility] PRN Reason: Protocol Last Admin: 02/10/18 08:56 Dose: 15 mg Sitagliptin Phosphate (Januvia) 25 mg PO DAILY [facility] Last Admin: 02/09/18 09:31 Dose: 25 mg Spironolactone (Aldactone) 50 mg PO DAILY [facility] Last Admin: 02/09/18 09:23 Dose: 50 mg Valsartan (Diovan) 160 mg PO DAILY [facility] Last Admin: 02/09/18 09:29 Dose: Not Given - Labs Labs: 02/10/18 05:30 02/10/18 05:30 - Constitutional Appears: Chronically Ill - Head Exam Head Exam: NORMAL INSPECTION - Eye Exam Eye Exam: Normal appearance - ENT Exam ENT Exam: Mucous Membranes Dry - Neck Exam Neck Exam: Normal Inspection - Respiratory Exam Respiratory Exam: Decreased Breath Sounds - Cardiovascular Exam Cardiovascular Exam: REGULAR RHYTHM - GI/Abdominal Exam GI & Abdominal Exam: Diminished Bowel Sounds - Rectal Exam Rectal Exam: Deferred - Extremities Exam Extremities Exam: Pedal Edema - Back Exam Back Exam: NORMAL INSPECTION - Neurological Exam Neurological Exam: Alert - Skin Skin Exam: Normal Color Assessment and Plan (1) Hypotension Assessment & Plan: uncleasr etiology. would consider d/c milrinone as it has vasodilatory proerties which preciptate hypotension. Status: Acute (2) Cardiomyopathy Assessment & Plan: monitor volume status Status: Acute
[2018-02-10] MEDS: Milrinone 20mg/100ml D5W 100 ML IV SCH (11:36)
--- NOTE | 2018-02-10 23:06 | CP.PCM.PN ---
Subjective - Date & Time of Evaluation Date of Evaluation: 02/10/18 - Subjective Subjective: F/U Respiratory insufficiency. Pt lethargic, arousable. Objective - Vital Signs/Intake and Output Vital Signs (last 24 hours): Temp Pulse Resp BP Pulse Ox 98.5 F 68 23 94/64 L 100 02/10/18 20:00 02/10/18 20:00 02/10/18 20:00 02/10/18 20:00 02/10/18 20:11 Intake and Output: 02/10/18 02/11/18 18:59 06:59 Intake Total 813.0 60 Output Total 250 Balance 563.0 60 - Medications Medications: Current Medications Acetaminophen (Tylenol 325mg Tab) 650 mg PO Q6 PRN PRN Reason: Pain, Mild (1-3) Albuterol/Ipratropium (Duoneb 3 Mg/0.5 Mg (3 Ml) Ud) 3 ml INH RQ6 [facility] Last Admin: 02/10/18 18:59 Dose: 3 ml Atorvastatin Calcium (Lipitor) 40 mg PO DAILY [facility] Last Admin: 02/09/18 09:32 Dose: 40 mg Carvedilol (Coreg) 12.5 mg PO Q12 [facility] Last Admin: 02/09/18 09:27 Dose: Not Given Clopidogrel Bisulfate (Plavix) 75 mg PO DAILY [facility] Last Admin: 02/09/18 09:33 Dose: 75 mg Dextrose (Dextrose 50% Inj) 0 ml IV STAT PRN; Protocol PRN Reason: Hypoglycemia Protocol Dextrose (Glutose 15) 0 gm PO ONCE PRN; Protocol PRN Reason: Hypoglycemia Protocol Gabapentin (Neurontin) 300 mg PO DAILY [facility] Last Admin: 02/09/18 09:33 Dose: 300 mg Glucagon (Glucagen Diagnostic Kit) 0 mg IM STAT PRN; Protocol PRN Reason: Hypoglycemia Protocol Home Med (Icosapent Ethyl [Vascepa]) 1 gm PO DAILY [facility] Home Med (Linagliptin [Tradjenta]) 5 mg PO DAILY [facility] Home Med (Memantine Hcl [Namenda Xr]) 14 mg PO QPM [facility] Clindamycin Phosphate (Cleocin) 600 mg in 50 mls @ 50 mls/hr IVPB Q12 [facility] PRN Reason: Protocol Last Admin: 02/10/18 21:26 Dose: 50 mls/hr Ibuprofen (Motrin Tab) 400 mg PO Q6 PRN PRN Reason: Pain, moderate (4-7) Insulin Human Lispro (Humalog) 0 units SC ACHS [facility] PRN Reason: Protocol Last Admin: 02/10/18 21:25 Dose: Not Given Memantine (Namenda) 5 mg PO BID [facility] Last Admin: 02/10/18 16:58 Dose: 5 mg Metolazone (Zaroxolyn) 2.5 mg PO DAILY [facility] Last Admin: 02/09/18 09:35 Dose: 2.5 mg Aryev-1-Rkrt Ethyl Esters (Lovaza) 1 gm PO DAILY [facility] Last Admin: 02/10/18 08:55 Dose: Not Given Rivaroxaban (Xarelto) 15 mg PO DAILY [facility] PRN Reason: Protocol Last Admin: 02/10/18 08:56 Dose: 15 mg Sitagliptin Phosphate (Januvia) 25 mg PO DAILY [facility] Last Admin: 02/09/18 09:31 Dose: 25 mg Spironolactone (Aldactone) 50 mg PO DAILY [facility] Last Admin: 02/09/18 09:23 Dose: 50 mg Valsartan (Diovan) 160 mg PO DAILY [facility] Last Admin: 02/09/18 09:29 Dose: Not Given - Labs Labs: 02/10/18 05:30 02/10/18 05:30 - Constitutional Appears: Chronically Ill - Head Exam Head Exam: NORMAL INSPECTION - Eye Exam Eye Exam: PERRL - ENT Exam ENT Exam: Normal Exam - Neck Exam Neck Exam: Normal Inspection - Respiratory Exam Respiratory Exam: Decreased Breath Sounds, Rhonchi, Wheezes - Cardiovascular Exam Cardiovascular Exam: REGULAR RHYTHM - GI/Abdominal Exam GI & Abdominal Exam: Soft, Normal Bowel Sounds - Extremities Exam Extremities Exam: Pedal Edema - Back Exam Back Exam: NORMAL INSPECTION - Neurological Exam Additional comments: Lethargic. - Skin Skin Exam: Warm Assessment and Plan (1) Acute respiratory insufficiency Status: Acute (2) Pneumonia Status: Acute (3) COPD exacerbation Status: Acute (4) CHF (congestive heart failure) Status: Chronic - Assessment and Plan (Free Text) Plan: Continue Duoneb, abx coverage and rest of Tx, f/u CT Chest in AM ICU Time: 35 min.
[2018-02-11] MEDS: Albuterol-Ipratrop 3 mg / 0.5 (3 ml) UD INH SCH ×4 (01:01→19:45)
--- NOTE | 2018-02-11 01:28 | PN ---
CRITICAL CARE PROGRESS NOTE DATE: 02/10/2018 LOCATION: The patient in ICU, bed 432. TIME SPENT: 35 minutes. SUBJECTIVE: The patient is seen and evaluated at the bedside. Past medical, surgical, and social history reviewed. An 82-year-old female admitted after a fall at home, admitted with hypotension and change in the mental status, status post fluid challenge, remained hypertensive, and currently on Levophed and milrinone drip for suspected cardiomyopathy. Overnight telemetry, sinus rhythm, low to normal systolic blood pressure, on oxygen supplement 2 L, and saturating 97%. OBJECTIVE: GENERAL: This morning; alert, awake, and follows commands appropriate. VITAL SIGNS: Temperature 97.7, heart rate 72, blood pressure 101/60 to 88/52, and saturation 99-100. Intake 2547, output 900, positive balance 1647, and weight 110 pounds. HEAD, EYES, EARS, NOSE, AND THROAT: Pupils are reactive. Conjunctivae pink. Sclerae are white. NECK: Supple. Trachea is central. CHEST: Bilateral breath sounds. No scattered rhonchi. HEART: Rhythm regular. S1 and S2 normal. No audible murmur. ABDOMEN: Bowel sounds present and soft. No palpable tenderness. EXTREMITIES: No clubbing, cyanosis, or pedal edema. SKIN: With erythema and increased warmth along the left posterior distal calf area, SCD bilaterally. NEUROLOGIC: Alert, awake, and follows commands. SKIN: Warm and dry. CURRENT MEDICATIONS: Tylenol 650 every 6 hours p.r.n., Lipitor 40 mg p.o. daily, Coreg 12.5 mg p.o. every 12 hours, clindamycin 600 mg IV every 12 hours, Plavix 75 mg daily, Neurontin 300 mg p.o. daily, ibuprofen 400 mg p.o. every 6 hours p.r.n., Accu-Chek with regular insulin coverage, Namenda 5 mg p.o. twice daily, metolazone 2.5 mg on hold, milrinone drip, Xarelto 15 mg p.o. daily, Januvia 25 mg p.o. daily, spironolactone 50 mg p.o. daily, and Diovan 160 mg p.o. daily. LABORATORY DATA: WBC 13.6, hemoglobin 11.2, hematocrit 34.5, and platelet count of 151. ABG; lactate of 1.2. SMA-7; sodium 135, potassium 3.9, chloride 103, CO2 of 21, blood urea nitrogen 47, creatinine 1.1, random glucose 307, calcium 7.9, total bili 1.3, AST 89, ALT 158, alkaline phosphatase 148, troponin 0.29, total protein 5.3, and albumin 2.05. Urinalysis; RBC 6, WBC few microscopic WBC 68, and urine chloride 16. Microbiology pending. Chest x-ray; mild pulmonary vascular congestion, stable cardiomegaly, and minimal bilateral pleural effusion. IMPRESSION AND PLAN: 1. Neurologic: Altered mental status, underlying dementia, and superimposed septic metabolic encephalopathy. 2. Pulmonary: Bilateral pleural effusion with atelectasis, limited bibasilar airspace disease. 3. Cardiac: Hypotension, etiology unclear. Seen by Cardiology. Recommend to discontinue milrinone due to vasodilatory side effect. 4. Infectious disease: Leukocytosis trending down. Suspected pneumonia, urinary tract infection and/or cellulitis. Continue current antibiotic. 5. Gastrointestinal: Elevated liver enzymes are noted due to hypotension and ischemic hepatitis and closely monitor for further elevation of liver enzymes. 6. Renal: Elevated BUN proportion to creatinine prerenal, hypoalbuminemia. Continue deep venous thrombosis and gastrointestinal prophylaxis. Head of bed 30 degrees up. Monitor serum cortisol level in the morning to rule out adrenal insufficiency as the patient has been on steroids as an outpatient. Tavo Robles MD SE
[2018-02-11 05:59] LABS: HEMOGLOBIN 10.4 g/dL (12.0-16.0); MEAN CELL VOLUME 90.2 fl (81.0-99.0); MEAN CORPUSCULAR HEMOGLOBIN 29.5 pg (27.0-31.0); MEAN CORPUSCULAR HGB CONC 32.7 g/dL (33.0-37.0); RBC 3.51 Mil/uL (3.80-5.20); RED CELL DISTRIBUTION WIDTH 20.5 % (11.5-14.5); WHITE BLOOD COUNT 12.2 K/uL (4.8-10.8)
[2018-02-11 06:18] LABS: ALB/GLOB RATIO 0.9 (1.0-2.1); ALBUMIN 2.5 g/dL (3.5-5.0); CALCIUM 8.4 mg/dL (8.4-10.2)
--- NOTE | 2018-02-11 07:51 | CP.CCUPN ---
CCU Subjective - Physician Review Events Since Last Encounter (Free Text): 02/11/18 The patient was Seen/interviewed and examined by me at the bedside, Medical records reviewed and Management issues were discussed and formulated with the house staff. Events reviewed 82 Years old Female with PMHx of HTN, Hypercholesterolemia, Atrial Fibrillation , CAD, Cardiac Arrhythmia, CHF, CVA, TIA, Diabetes (type II), Gastritis, Dementia, Parkinson's Disease, Pneumonia, Anemia, Anxiety, Arthritis and Asthma/ COPD/Bronchitis. Who was brought to ER 02/08 for evaluation of worsening shortness of breath and s/p fall where patient slipped on the way to the bathroom. 02/09, she was transferred to ICU today for AMS and acute hypotension with BP unresponsive to initial 1 liter fluid challenge. Currently managed in ICU for respiratory insufficiency related to Pneumonia, COPD and Cardiomyopathy Intially required Vasopressors via femoral TLC. Last 24H Events: Alert, oriented to name and place and follows commands. Mild Tachypnea, on 3L Nasal cannula O2 sat 98% Denies any chest pain, diaphoresis or Palpitations Less shortness of breath but she gets dyspnic on minimal exersion. Afebrile, Blood C/S pending A-Fib on the monitor Clinically improving, off Levophed, hemodynamically improved No Vasopressors Last 24H I&O 933/650 CCU Objective - Vital Signs / Intake & Output Vital Signs (Last 4 hours): Vital Signs Temp Pulse Resp BP Pulse Ox 02/11/18 07:00 68 20 109/74 100 02/11/18 06:00 75 18 115/75 100 02/11/18 05:00 66 16 111/60 100 02/11/18 04:00 97.9 F 80 14 103/72 100 Intake and Output (Last 8hrs): Intake & Output 02/10/18 02/11/18 02/11/18 22:59 06:59 14:59 Intake Total 279.0 Output Total 350 300 Balance -71.0 -300 Intake: IV 49.0 Intake, Piggyback 110 Oral 120 Output: Urine 350 300 Urethral ([place]) 350 300 Stool 0 Other: # Bowel Movements 0 - Physical Exam Physical Exam Limitations: Positive for: Clinical Condition Head: Positive for: Atraumatic, Normocephalic Pupils: Positive for: PERRL. Negative for: Sluggish, Non-Reactive Extroacular Muscles: Positive for: EOMI Conjunctiva: Positive for: Normal. Negative for: Injected, Icteric Mouth: Positive for: Moist Mucous Membranes Pharnyx: Positive for: Normal Nose (Internal): Positive for: Normal Inspection Neck: Positive for: Normal Range of Motion, Trachea Midline. Negative for: Meningeal Signs, MIDLINE TENDERNESS, Paraspinal Tenderness, JVD, Lymphadenopathy , Bruit, Other Respiratory/Chest: Positive for: Decreased Breath Sounds, Rales, Rhonchi. Negative for: Clear to Auscultation, Respiratory Distress, Accessory Muscle Use , Wheezes Cardiovascular: Positive for: Regular Rate and Rhythm, Normal S1, S2, Peripheal Pulses Present. Negative for: Murmurs, Irregular Rhythm, Tachycardic, Bradycardic Abdomen: Positive for: Distention, Normal Bowel Sounds. Negative for: Tenderness Back: Negative for: CVA Tenderness, Midline Tenderness Upper Extremity: Positive for: Cyanosis, NORMAL PULSES, Capillary Refill < 2s Lower Extremity: Positive for: Edema, NORMAL PULSES, Capillary Refill < 2 s - Medications Active Medications: Active Medications Generic Name Dose Route Start Last Admin Trade Name Freq PRN Reason Stop Dose Admin Acetaminophen 650 mg 02/08/18 13:48 Tylenol 325mg Tab PO Q6 PRN Pain, Mild (1-3) Albuterol/Ipratropium 3 ml 02/08/18 14:00 02/11/18 01:01 Duoneb 3 Mg/0.5 Mg (3 Ml) Ud INH 3 ml RQ6 [facility] Administration Atorvastatin Calcium 40 mg 02/09/18 09:00 02/09/18 09:32 Lipitor PO 40 mg DAILY [facility] Administration Carvedilol 12.5 mg 02/08/18 21:00 02/09/18 09:27 Coreg PO Not Given Q12 [facility] Clopidogrel Bisulfate 75 mg 02/09/18 09:00 02/09/18 09:33 Plavix PO 75 mg DAILY [facility] Administration Dextrose 0 ml 02/08/18 14:05 Dextrose 50% Inj IV STAT PRN Hypoglycemia Protocol Protocol Dextrose 0 gm 02/08/18 14:05 Glutose 15 PO ONCE PRN Hypoglycemia Protocol Protocol Gabapentin 300 mg 02/09/18 09:00 02/09/18 09:33 Neurontin PO 300 mg DAILY [facility] Administration Glucagon 0 mg 02/08/18 14:05 Glucagen Diagnostic Kit IM STAT PRN Hypoglycemia Protocol Protocol Home Med 1 gm 02/09/18 09:00 Icosapent Ethyl [Vascepa] PO DAILY [facility] Home Med 5 mg 02/09/18 09:00 Linagliptin [Tradjenta] PO DAILY [facility] Home Med 14 mg 02/08/18 18:00 Memantine Hcl [Namenda Xr] PO QPM [facility] Clindamycin Phosphate 600 mg in 50 mls @ 50 mls/hr 02/09/18 21:00 02/10/18 21 :26 Cleocin IVPB 50 mls/hr Q12 [facility] Administration Protocol Ibuprofen 400 mg 02/08/18 13:48 Motrin Tab PO Q6 PRN Pain, moderate (4-7) Insulin Human Lispro 0 units 02/08/18 16:30 02/10/18 21:25 Humalog SC Not Given ACHS [facility] Protocol Memantine 5 mg 02/08/18 17:00 02/10/18 16:58 Namenda PO 5 mg BID [facility] Administration Metolazone 2.5 mg 02/09/18 09:00 02/09/18 09:35 Zaroxolyn PO 2.5 mg DAILY [facility] Administration [id number] Ethyl Esters 1 gm 02/09/18 09:00 02/10/18 08:55 Lovaza PO Not Given DAILY [facility] Rivaroxaban 15 mg 02/09/18 09:00 02/10/18 08:56 Xarelto PO 15 mg DAILY [facility] Administration Protocol Sitagliptin Phosphate 25 mg 02/09/18 09:00 02/09/18 09:31 Januvia PO 25 mg DAILY [facility] Administration Spironolactone 50 mg 02/09/18 09:00 02/09/18 09:23 Aldactone PO 50 mg DAILY [facility] Administration Valsartan 160 mg 02/09/18 09:00 02/09/18 09:29 Diovan PO Not Given DAILY [facility] - Patient Studies Lab Studies: Microbiology Studies 02/09/18 17:20 MRSA Culture (Admit) - Final Naris MRSA NOT DETECTED Lab Studies 02/11/18 02/11/18 02/11/18 Range/Units 06:21 04:20 04:20 WBC 12.2 H (4.8-10.8) K/uL RBC 3.51 L (3.80-5.20) Mil/uL Hgb 10.4 L (12.0-16.0) g/dL Hct 31.7 L (34.0-47.0) % MCV 90.2 (81.0-99.0) fl MCH 29.5 (27.0-31.0) pg MCHC 32.7 L (33.0-37.0) g/dL RDW 20.5 H (11.5-14.5) % Plt Count 159 (130-400) K/uL Sodium 133 (132-148) mmol/l Potassium 4.1 (3.6-5.0) MMOL/L Chloride 103 (98-107) mmol/L Carbon Dioxide 23 (22-30) mmol/L Anion Gap 11 (10-20) BUN 48 H (7-17) mg/dl Creatinine 1.3 H (0.7-1.2) mg/dl Est GFR ( Amer) 47 Est GFR (Non-Af Amer) 39 POC Glucose (mg/dL) 233 H (65-110) mg/dL Random Glucose 231 H (65-105) mg/dL Calcium 8.4 (8.4-10.2) mg/dL Total Bilirubin 0.7 (0.2-1.3) mg/dl AST 57 H D (14-36) U/L ALT 136 H (9-52) U/L Alkaline Phosphatase 129 H (38-126) U/L Total Protein 5.4 L (6.3-8.2) G/DL Albumin 2.5 L (3.5-5.0) g/dL Globulin 2.9 (2.2-3.9) gm/dL Albumin/Globulin Ratio 0.9 L (1.0-2.1) Urine Chloride (32-290) mmol/L 02/10/18 02/10/18 02/10/18 Range/Units 21:23 16:37 11:37 WBC (4.8-10.8) K/uL RBC (3.80-5.20) Mil/uL Hgb (12.0-16.0) g/dL Hct (34.0-47.0) % MCV (81.0-99.0) fl MCH (27.0-31.0) pg MCHC (33.0-37.0) g/dL RDW (11.5-14.5) % Plt Count (130-400) K/uL Sodium (132-148) mmol/l Potassium (3.6-5.0) MMOL/L Chloride (98-107) mmol/L Carbon Dioxide (22-30) mmol/L Anion Gap (10-20) BUN (7-17) mg/dl Creatinine (0.7-1.2) mg/dl Est GFR ( Amer) Est GFR (Non-Af Amer) POC Glucose (mg/dL) 301 H 277 H 340 H (65-110) mg/dL Random Glucose (65-105) mg/dL Calcium (8.4-10.2) mg/dL Total Bilirubin (0.2-1.3) mg/dl AST (14-36) U/L ALT (9-52) U/L Alkaline Phosphatase (38-126) U/L Total Protein (6.3-8.2) G/DL Albumin (3.5-5.0) g/dL Globulin (2.2-3.9) gm/dL Albumin/Globulin Ratio (1.0-2.1) Urine Chloride (32-290) mmol/L 02/09/18 Range/Units 18:33 WBC (4.8-10.8) K/uL RBC (3.80-5.20) Mil/uL Hgb (12.0-16.0) g/dL Hct (34.0-47.0) % MCV (81.0-99.0) fl MCH (27.0-31.0) pg MCHC (33.0-37.0) g/dL RDW (11.5-14.5) % Plt Count (130-400) K/uL Sodium (132-148) mmol/l Potassium (3.6-5.0) MMOL/L Chloride (98-107) mmol/L Carbon Dioxide (22-30) mmol/L Anion Gap (10-20) BUN (7-17) mg/dl Creatinine (0.7-1.2) mg/dl Est GFR ( Amer) Est GFR (Non-Af Amer) POC Glucose (mg/dL) (65-110) mg/dL Random Glucose (65-105) mg/dL Calcium (8.4-10.2) mg/dL Total Bilirubin (0.2-1.3) mg/dl AST (14-36) U/L ALT (9-52) U/L Alkaline Phosphatase (38-126) U/L Total Protein (6.3-8.2) G/DL Albumin (3.5-5.0) g/dL Globulin (2.2-3.9) gm/dL Albumin/Globulin Ratio (1.0-2.1) Urine Chloride 16 L (32-290) mmol/L Laboratory Results - last 24 hr 02/09/18 02/10/18 02/10/18 18:33 11:37 16:37 WBC RBC Hgb Hct MCV MCH MCHC RDW Plt Count Sodium Potassium Chloride Carbon Dioxide Anion Gap BUN Creatinine Est GFR ( Amer) Est GFR (Non-Af Amer) POC Glucose (mg/dL) 340 H 277 H Random Glucose Calcium Total Bilirubin AST ALT Alkaline Phosphatase Total Protein Albumin Globulin Albumin/Globulin Ratio Urine Chloride 16 L 02/10/18 02/11/18 02/11/18 21:23 04:20 04:20 WBC 12.2 H RBC 3.51 L Hgb 10.4 L Hct 31.7 L MCV 90.2 MCH 29.5 MCHC 32.7 L RDW 20.5 H Plt Count 159 Sodium 133 Potassium 4.1 Chloride 103 Carbon Dioxide 23 Anion Gap 11 BUN 48 H Creatinine 1.3 H Est GFR ( Amer) 47 Est GFR (Non-Af Amer) 39 POC Glucose (mg/dL) 301 H Random Glucose 231 H Calcium 8.4 Total Bilirubin 0.7 AST 57 H D ALT 136 H Alkaline Phosphatase 129 H Total Protein 5.4 L Albumin 2.5 L Globulin 2.9 Albumin/Globulin Ratio 0.9 L Urine Chloride 02/11/18 06:21 WBC RBC Hgb Hct MCV MCH MCHC RDW Plt Count Sodium Potassium Chloride Carbon Dioxide Anion Gap BUN Creatinine Est GFR ( Amer) Est GFR (Non-Af Amer) POC Glucose (mg/dL) 233 H Random Glucose Calcium Total Bilirubin AST ALT Alkaline Phosphatase Total Protein Albumin Globulin Albumin/Globulin Ratio Urine Chloride Fingerstick Blood Sugar Results: 301 Review of Systems - Cardiovascular Cardiovascular: absent: Chest Pain, Chest Pain at Rest, Chest Pain with Activity , Claudication - Respiratory Respiratory: Cough, Dyspnea, Dyspnea on Exertion. absent: Hemoptysis, Wheezing , Snoring - Gastrointestinal Gastrointestinal: absent: Abdominal Pain, Coffee Ground Emesis, Melena, Nausea, Vomiting Critical Care Progress Note - Nutrition Nutrition: Nutrition Category Date Time Status Heart Healthy Diet [DIET] Diets 02/08/18 Breakfast Active Assessment/Plan (1) Acute respiratory insufficiency Current Visit: Yes Status: Acute Priority: High Comment: Continue with ICU care for hemodynamic and Respiratory monitoring Switch Antibiotics to IV Piperacillin Sod/Tazobactam Continue Diuresis Strict I&O (2) Pneumonia Current Visit: Yes Status: Acute Priority: High Comment: Scheduled for chest CT scan today Switch Antibiotics to IV Piperacillin Sod/Tazobactam Albuterol/Ipratropium (Duoneb) INH RQ6 [facility] (3) Acute on chronic heart failure Current Visit: Yes Status: Acute Priority: High Comment: Continue Diuresis Strict I&O (4) Atrial fibrillation Current Visit: No Status: Chronic Comment: HR controlled Continue Rivaroxaban (Xarelto) 15 mg PO DAILY (5) Cardiomyopathy Current Visit: Yes Status: Acute (6) COPD (chronic obstructive pulmonary disease) with chronic bronchitis Current Visit: No Status: Acute
[2018-02-11] MEDS: Insulin Lispro (humaLOG) 100 Units/ml Inj SC SCH ×4 (08:00→21:49)
[2018-02-11] MEDS: Clindamycin 600mg/50ml D5W 600 MG/50 ML VIAL IVPB SCH ×2 (08:21→21:48)
[2018-02-11] MEDS: Omega-3-Acid Ethyl Esters 1 GM Cap PO SCH (08:23)
--- NOTE | 2018-02-11 10:43 | CP.PCM.PN ---
Subjective - Date & Time of Evaluation Date of Evaluation: 02/10/18 Time of Evaluation: 11:00 - Subjective Subjective: patient is less distress and more awake Has no fever. Objective - Vital Signs/Intake and Output Vital Signs (last 24 hours): Temp Pulse Resp BP Pulse Ox 97.5 F L 74 16 112/73 99 02/11/18 08:00 02/11/18 08:00 02/11/18 08:00 02/11/18 08:00 02/11/18 08:00 Intake and Output: 02/11/18 02/11/18 06:59 18:59 Intake Total 120 Output Total 400 Balance -280 - Medications Medications: Current Medications Acetaminophen (Tylenol 325mg Tab) 650 mg PO Q6 PRN PRN Reason: Pain, Mild (1-3) Albuterol/Ipratropium (Duoneb 3 Mg/0.5 Mg (3 Ml) Ud) 3 ml INH RQ6 [facility] Last Admin: 02/11/18 07:54 Dose: 3 ml Atorvastatin Calcium (Lipitor) 40 mg PO DAILY [facility] Last Admin: 02/09/18 09:32 Dose: 40 mg Carvedilol (Coreg) 12.5 mg PO Q12 [facility] Last Admin: 02/09/18 09:27 Dose: Not Given Clopidogrel Bisulfate (Plavix) 75 mg PO DAILY [facility] Last Admin: 02/09/18 09:33 Dose: 75 mg Dextrose (Dextrose 50% Inj) 0 ml IV STAT PRN; Protocol PRN Reason: Hypoglycemia Protocol Dextrose (Glutose 15) 0 gm PO ONCE PRN; Protocol PRN Reason: Hypoglycemia Protocol Gabapentin (Neurontin) 300 mg PO DAILY [facility] Last Admin: 02/09/18 09:33 Dose: 300 mg Glucagon (Glucagen Diagnostic Kit) 0 mg IM STAT PRN; Protocol PRN Reason: Hypoglycemia Protocol Home Med (Icosapent Ethyl [Vascepa]) 1 gm PO DAILY [facility] Home Med (Linagliptin [Tradjenta]) 5 mg PO DAILY [facility] Home Med (Memantine Hcl [Namenda Xr]) 14 mg PO QPM [facility] Clindamycin Phosphate (Cleocin) 600 mg in 50 mls @ 50 mls/hr IVPB Q12 [facility] PRN Reason: Protocol Last Admin: 02/11/18 08:21 Dose: 50 mls/hr Ibuprofen (Motrin Tab) 400 mg PO Q6 PRN PRN Reason: Pain, moderate (4-7) Insulin Human Lispro (Humalog) 0 units SC ACHS [facility] PRN Reason: Protocol Last Admin: 02/10/18 21:25 Dose: Not Given Memantine (Namenda) 5 mg PO BID [facility] Last Admin: 02/11/18 08:23 Dose: 5 mg Metolazone (Zaroxolyn) 2.5 mg PO DAILY [facility] Last Admin: 02/09/18 09:35 Dose: 2.5 mg [id number] Ethyl Esters (Lovaza) 1 gm PO DAILY [facility] Last Admin: 02/11/18 08:23 Dose: 1 gm Rivaroxaban (Xarelto) 15 mg PO DAILY [facility] PRN Reason: Protocol Last Admin: 02/11/18 08:24 Dose: 15 mg Sitagliptin Phosphate (Januvia) 25 mg PO DAILY [facility] Last Admin: 02/09/18 09:31 Dose: 25 mg Spironolactone (Aldactone) 50 mg PO DAILY [facility] Last Admin: 02/09/18 09:23 Dose: 50 mg Valsartan (Diovan) 160 mg PO DAILY [facility] Last Admin: 02/09/18 09:29 Dose: Not Given - Labs Labs: 02/11/18 04:20 02/11/18 04:20 Assessment and Plan (1) CHF (congestive heart failure) Status: Chronic (2) Cardiomyopathy Status: Acute (3) Pneumonia Status: Acute (4) Hyperkalemia Status: Acute (5) Hypotension Status: Acute (6) COPD (chronic obstructive pulmonary disease) Status: Acute (7) Diabetes mellitus type 2 in nonobese Status: Acute
--- NOTE | 2018-02-11 11:39 | PQF GENQUE ---
Dr. Lawrence, 4 queries: 1. Please specify location of pressure ulcer:if in agreement with force variation equipment tender : Body site(s) involved Laterality (bilateral, left, right) Other (please specify) Clinically unable to determine Unknown -Disagree 2. Please specify POA status of each pressure ulcer: Not present on admission Present on admission Other (please specify) Clinically unable to determine Unknown 3. Please specify stage of each pressure ulcer (National Pressure Ulcer Advisory Panel definitions): Stage I: Intact skin with non-blanchable redness of a localized area Stage II: Partial thickness skin loss involving dermis with a shallow open ulcer or an open serum-filled blister Stage III: Full thickness skin loss involving damage or necrosis of subcutaneous tissue Stage IV: Full thickness skin loss with exposed bone, tendon or muscle Unstageable: Full thickness tissue loss in which the base of the of ulcer is covered by slough and/or eschar in the wound bed Deep tissue Injury (DTI):Purple or maroon localized area of intact skin due to damage of underlying soft tissue from pressure and/or shear Other (please specify) Clinically unable to determine Unknown 4. If ulcer is not due to pressure, please specify other cause of ulcer (e.g., diabetes, PVD, varicose veins) 02/08: Nursing Pressure Ulcer Assessment: Sacrum: Partial Thickness losss of dermis presenting as a shallow open ulcer Wound biochemical development engineer pending This form is a permanent part of the medical record Clarification of your documentation is requested to better reflect the severity of illness and intensity of treatment of your patient. Indicators present [] Specify: [] [] Specify: [] [] Specify: [] [] Specify: [] Location in the medical record that reflects the above clinical findings: [] Treatment Provided: [] PHYSICIAN'S RESPONSE Based on your medical judgment of the clinical indicators outlined above please clarify the following: [] Practitioner response [] If unable to determine, please check the box, sign and date. Present On Admission (POA) Indicator: [] Present at the time of admission [] Not present at the time of admission [] Clinically Undetermined In responding to this query, please exercise your independent professional judgment. The fact that a question is asked does not imply that any particular answer is desired or expected. Thank you for your clarification on this documentation. If you have any questions please call. * Thank you, Naty Kemp RN ext. #[phone] [facility]TDD
--- NOTE | 2018-02-11 12:14 | PQF GENQUE ---
Dr. Lawrence, 2 queries: 1. Please specify type of pneumonia in the progress notes: if known ----Note: CAP, HAP, and HCAP indicate where the pneumonia was acquired, not a specific type.----- i.e. Aspiration pneumonia Please document specific aspirate (food, liquids, etc.) Please indicate if this is postprocedural Bacterial (specify organism) Bronchopneumonia (specify organism) Interstitual pneumonia Organizing pneumonia/BOOP Pneumonia with influenza, rad flu, or H1N1 flu RSV pneumonia Tuberculosis, pulmonary Viral pneumonia Other pneumonia (specify organism or type) Clinically unable to determine Unknown 2. POA? Note: Probable and suspected conditions can be coded as if they exist if still documented at the time of discharge. 3. Please specify the organism causing the pneumonia if known after work up is completed 02/08 CXR: Impression:Mild central pulmonary venous congestion. Small left pleural effusion with lung base atelectasis/infiltrate. Right pleural effusion versus pleural thickening. Right lung base atelectasis/infiltrate. ER note: brought to the ED by EMS for evaluation, s/p fall where patient slipped on the way to the bathroom. Fall was witnessed by home health aide who reported that the patient landed on the rug and is unsure of weather she hit her head. Clinical Impression: CHF (congestive heart failure), Fall, Hyperkalemia, Pneumonia Admission order: dxs. include: Pneumonia 02/09 Attending progress note: dxs. include: Pneumonia Multiple physician notes: lethargic and 02/09 ID note: significantly lethargic: feel that she has possible pneumonia, congestive heart failure. I have started her on clindamycin and will continue Zosyn. Zithromax has been discontinued. IVAB'S This form is a permanent part of the medical record Clarification of your documentation is requested to better reflect the severity of illness and intensity of treatment of your patient. Indicators present [] Specify: [] [] Specify: [] [] Specify: [] [] Specify: [] Location in the medical record that reflects the above clinical findings: [] Treatment Provided: [] PHYSICIAN'S RESPONSE Based on your medical judgment of the clinical indicators outlined above please clarify the following: [] Practitioner response [] If unable to determine, please check the box, sign and date. Present On Admission (POA) Indicator: [] Present at the time of admission [] Not present at the time of admission [] Clinically Undetermined In responding to this query, please exercise your independent professional judgment. The fact that a question is asked does not imply that any particular answer is desired or expected. Thank you for your clarification on this documentation. If you have any questions please call. * Thank you, Naty Kemp RN ext. #[phone] MTDD
--- NOTE | 2018-02-11 15:32 | CT ---
PROCEDURE: CT Chest without contrast HISTORY: PNA COMPARISON: CT chest dated 11/26/2017. TECHNIQUE: Contiguous axial images were obtained through the chest without intravenous contrast enhancement. Sagittal and coronal reconstructions were performed. Radiation dose (DLP): 325.2 mGy-cm. This CT exam was performed using one or more of the following dose reduction techniques: Automated exposure control, adjustment of the mA and/or kV according to patient size, and/or use of iterative reconstruction technique. FINDINGS: LUNGS: Pulmonary vascular congestion. Mild right upper lobe, right lower lobe, lingula and left lower lobe atelectasis. 2 mm right upper lobe nodule (series 2, image 38). Visualized airway clear. MEDIASTINUM: Unremarkable thoracic aorta. No aneurysm. Cardiomegaly. Coronary arterial valvular calcifications. Prior sternotomy. Implanted cardiac device with leads terminating in the right atrium and right ventricle. Prior mitral valve repair. Main pulmonary artery unremarkable. No vascular congestion. Multiple prominent mediastinal lymph nodes, decreased in size in the prior exam. PLEURA: Small to moderate right and trace/small left pleural effusions. No pneumothorax. BONES: No fracture. Multilevel chronic compression fractures redemonstrated. No destructive lesion. UPPER ABDOMEN: Grossly unremarkable. OTHER FINDINGS: None. IMPRESSION: Pulmonary vascular congestion with small to moderate right and trace/ small left pleural effusions. Small amount atelectasis seen in the right upper, right lower, lingula and left lower lobes. Overall decreased size of multiple prominent mediastinal lymph nodes.
--- NOTE | 2018-02-11 15:33 | CP.PCM.PN ---
Subjective - Date & Time of Evaluation Date of Evaluation: 02/11/18 - Subjective Subjective: F/U Respiratory insufficiency mild SOB on NC 3Lm , RAMIREZ reported by nurses , O2 sat 98% , A O answer questions Objective - Vital Signs/Intake and Output Vital Signs (last 24 hours): Temp Pulse Resp BP Pulse Ox 97.7 F 72 19 120/42 L 99 02/11/18 12:00 02/11/18 14:00 02/11/18 14:00 02/11/18 14:00 02/11/18 14:00 Intake and Output: 02/11/18 02/11/18 06:59 18:59 Intake Total 120 540 Output Total 400 300 Balance -280 240 - Medications Medications: Current Medications Acetaminophen (Tylenol 325mg Tab) 650 mg PO Q6 PRN PRN Reason: Pain, Mild (1-3) Albuterol/Ipratropium (Duoneb 3 Mg/0.5 Mg (3 Ml) Ud) 3 ml INH RQ6 [facility] Last Admin: 02/11/18 13:19 Dose: 3 ml Atorvastatin Calcium (Lipitor) 40 mg PO DAILY [facility] Last Admin: 02/09/18 09:32 Dose: 40 mg Carvedilol (Coreg) 12.5 mg PO Q12 [facility] Last Admin: 02/09/18 09:27 Dose: Not Given Clopidogrel Bisulfate (Plavix) 75 mg PO DAILY [facility] Last Admin: 02/09/18 09:33 Dose: 75 mg Dextrose (Dextrose 50% Inj) 0 ml IV STAT PRN; Protocol PRN Reason: Hypoglycemia Protocol Dextrose (Glutose 15) 0 gm PO ONCE PRN; Protocol PRN Reason: Hypoglycemia Protocol Gabapentin (Neurontin) 300 mg PO DAILY [facility] Last Admin: 02/09/18 09:33 Dose: 300 mg Glucagon (Glucagen Diagnostic Kit) 0 mg IM STAT PRN; Protocol PRN Reason: Hypoglycemia Protocol Home Med (Icosapent Ethyl [Vascepa]) 1 gm PO DAILY [facility] Home Med (Linagliptin [Tradjenta]) 5 mg PO DAILY [facility] Home Med (Memantine Hcl [Namenda Xr]) 14 mg PO QPM [facility] Piperacillin Sod/Tazobactam (Sod 2.25 gm/ Sodium Chloride) 100 mls @ 100 mls/ hr IVPB Q6 [facility] PRN Reason: Protocol Ibuprofen (Motrin Tab) 400 mg PO Q6 PRN PRN Reason: Pain, moderate (4-7) Insulin Human Lispro (Humalog) 0 units SC ACHS [facility] PRN Reason: Protocol Last Admin: 02/11/18 12:00 Dose: 3 units Memantine (Namenda) 5 mg PO BID [facility] Last Admin: 02/11/18 08:23 Dose: 5 mg Metolazone (Zaroxolyn) 2.5 mg PO DAILY [facility] Last Admin: 02/09/18 09:35 Dose: 2.5 mg [id number] Ethyl Esters (Lovaza) 1 gm PO DAILY [facility] Last Admin: 02/11/18 08:23 Dose: 1 gm Rivaroxaban (Xarelto) 15 mg PO DAILY [facility] PRN Reason: Protocol Last Admin: 02/11/18 08:24 Dose: 15 mg Sitagliptin Phosphate (Januvia) 25 mg PO DAILY [facility] Last Admin: 02/09/18 09:31 Dose: 25 mg Spironolactone (Aldactone) 50 mg PO DAILY [facility] Last Admin: 02/09/18 09:23 Dose: 50 mg Valsartan (Diovan) 160 mg PO DAILY [facility] Last Admin: 02/09/18 09:29 Dose: Not Given - Labs Labs: 02/11/18 04:20 02/11/18 04:20 - Constitutional Appears: Chronically Ill - Head Exam Head Exam: NORMAL INSPECTION - Eye Exam Eye Exam: PERRL - ENT Exam ENT Exam: Normal Exam - Neck Exam Neck Exam: Normal Inspection - Respiratory Exam Respiratory Exam: Decreased Breath Sounds, Rhonchi (scattered), Wheezes ( scattered) - Cardiovascular Exam Cardiovascular Exam: REGULAR RHYTHM - GI/Abdominal Exam GI & Abdominal Exam: Soft, Normal Bowel Sounds - Extremities Exam Extremities Exam: Pedal Edema - Back Exam Back Exam: NORMAL INSPECTION - Neurological Exam Neurological Exam: Alert Additional comments: no focal motor/sensory deficit - Psychiatric Exam Psychiatric exam: Anxious - Skin Skin Exam: Warm Assessment and Plan (1) Acute respiratory insufficiency Status: Acute (2) Pneumonia Status: Acute (3) COPD exacerbation Status: Acute (4) CHF (congestive heart failure) Status: Acute - Assessment and Plan (Free Text) Plan: off vasopressors, continue Zosyn , Clinda , DuoNeb and rest of Tx ICU Time: 35 min.
--- NOTE | 2018-02-11 17:12 | CP.PCM.PN ---
Subjective - Date & Time of Evaluation Date of Evaluation: 02/11/18 Time of Evaluation: 17:11 - Subjective Subjective: I D NOTE LIKELY ASPIRATION HAVE RESTARTED CLINDAMYCIN CONTINUE ZOSYN Objective - Vital Signs/Intake and Output Vital Signs (last 24 hours): Temp Pulse Resp BP Pulse Ox 97.6 F 74 18 95/64 L 96 02/11/18 16:00 02/11/18 16:00 02/11/18 16:00 02/11/18 16:00 02/11/18 16:00 Intake and Output: 02/11/18 02/11/18 06:59 18:59 Intake Total 120 540 Output Total 400 300 Balance -280 240 - Medications Medications: Current Medications Acetaminophen (Tylenol 325mg Tab) 650 mg PO Q6 PRN PRN Reason: Pain, Mild (1-3) Albuterol/Ipratropium (Duoneb 3 Mg/0.5 Mg (3 Ml) Ud) 3 ml INH RQ6 [facility] Last Admin: 02/11/18 13:19 Dose: 3 ml Atorvastatin Calcium (Lipitor) 40 mg PO DAILY [facility] Last Admin: 02/09/18 09:32 Dose: 40 mg Carvedilol (Coreg) 12.5 mg PO Q12 [facility] Last Admin: 02/09/18 09:27 Dose: Not Given Clopidogrel Bisulfate (Plavix) 75 mg PO DAILY [facility] Last Admin: 02/09/18 09:33 Dose: 75 mg Dextrose (Dextrose 50% Inj) 0 ml IV STAT PRN; Protocol PRN Reason: Hypoglycemia Protocol Dextrose (Glutose 15) 0 gm PO ONCE PRN; Protocol PRN Reason: Hypoglycemia Protocol Gabapentin (Neurontin) 300 mg PO DAILY [facility] Last Admin: 02/09/18 09:33 Dose: 300 mg Glucagon (Glucagen Diagnostic Kit) 0 mg IM STAT PRN; Protocol PRN Reason: Hypoglycemia Protocol Home Med (Icosapent Ethyl [Vascepa]) 1 gm PO DAILY [facility] Home Med (Linagliptin [Tradjenta]) 5 mg PO DAILY [facility] Home Med (Memantine Hcl [Namenda Xr]) 14 mg PO QPM [facility] Piperacillin Sod/Tazobactam (Sod 2.25 gm/ Sodium Chloride) 100 mls @ 100 mls/ hr IVPB Q6 [facility] PRN Reason: Protocol Last Admin: 02/11/18 17:06 Dose: 100 mls/hr Clindamycin Phosphate 600 mg/ (Sodium Chloride) 54 mls @ 54 mls/hr IVPB Q12 [facility] PRN Reason: Protocol Ibuprofen (Motrin Tab) 400 mg PO Q6 PRN PRN Reason: Pain, moderate (4-7) Insulin Human Lispro (Humalog) 0 units SC ACHS [facility] PRN Reason: Protocol Last Admin: 02/11/18 17:07 Dose: 3 units Memantine (Namenda) 5 mg PO BID [facility] Last Admin: 02/11/18 17:06 Dose: 5 mg Metolazone (Zaroxolyn) 2.5 mg PO DAILY [facility] Last Admin: 02/09/18 09:35 Dose: 2.5 mg [id number] Ethyl Esters (Lovaza) 1 gm PO DAILY [facility] Last Admin: 02/11/18 08:23 Dose: 1 gm Rivaroxaban (Xarelto) 15 mg PO DAILY [facility] PRN Reason: Protocol Last Admin: 02/11/18 08:24 Dose: 15 mg Sitagliptin Phosphate (Januvia) 25 mg PO DAILY [facility] Last Admin: 02/09/18 09:31 Dose: 25 mg Spironolactone (Aldactone) 50 mg PO DAILY [facility] Last Admin: 02/09/18 09:23 Dose: 50 mg Valsartan (Diovan) 160 mg PO DAILY [facility] Last Admin: 02/09/18 09:29 Dose: Not Given - Labs Labs: 02/11/18 04:20 02/11/18 04:20
--- NOTE | 2018-02-11 17:45 | CP.PCM.PN ---
Subjective - Date & Time of Evaluation Date of Evaluation: 02/11/18 Time of Evaluation: 17:35 - Subjective Subjective: events noted. likley aspiration Objective - Vital Signs/Intake and Output Vital Signs (last 24 hours): Temp Pulse Resp BP Pulse Ox 97.6 F 74 18 95/64 L 96 02/11/18 16:00 02/11/18 16:00 02/11/18 16:00 02/11/18 16:00 02/11/18 16:00 Intake and Output: 02/11/18 02/11/18 06:59 18:59 Intake Total 120 540 Output Total 400 300 Balance -280 240 - Medications Medications: Current Medications Acetaminophen (Tylenol 325mg Tab) 650 mg PO Q6 PRN PRN Reason: Pain, Mild (1-3) Albuterol/Ipratropium (Duoneb 3 Mg/0.5 Mg (3 Ml) Ud) 3 ml INH RQ6 [facility] Last Admin: 02/11/18 13:19 Dose: 3 ml Atorvastatin Calcium (Lipitor) 40 mg PO DAILY [facility] Last Admin: 02/09/18 09:32 Dose: 40 mg Carvedilol (Coreg) 12.5 mg PO Q12 [facility] Last Admin: 02/09/18 09:27 Dose: Not Given Clopidogrel Bisulfate (Plavix) 75 mg PO DAILY [facility] Last Admin: 02/09/18 09:33 Dose: 75 mg Dextrose (Dextrose 50% Inj) 0 ml IV STAT PRN; Protocol PRN Reason: Hypoglycemia Protocol Dextrose (Glutose 15) 0 gm PO ONCE PRN; Protocol PRN Reason: Hypoglycemia Protocol Gabapentin (Neurontin) 300 mg PO DAILY [facility] Last Admin: 02/09/18 09:33 Dose: 300 mg Glucagon (Glucagen Diagnostic Kit) 0 mg IM STAT PRN; Protocol PRN Reason: Hypoglycemia Protocol Home Med (Icosapent Ethyl [Vascepa]) 1 gm PO DAILY [facility] Home Med (Linagliptin [Tradjenta]) 5 mg PO DAILY [facility] Home Med (Memantine Hcl [Namenda Xr]) 14 mg PO QPM [facility] Piperacillin Sod/Tazobactam (Sod 2.25 gm/ Sodium Chloride) 100 mls @ 100 mls/ hr IVPB Q6 [facility] PRN Reason: Protocol Last Admin: 02/11/18 17:06 Dose: 100 mls/hr Clindamycin Phosphate (Cleocin) 600 mg in 50 mls @ 50 mls/hr IVPB Q12 [facility] PRN Reason: Protocol Ibuprofen (Motrin Tab) 400 mg PO Q6 PRN PRN Reason: Pain, moderate (4-7) Insulin Human Lispro (Humalog) 0 units SC ACHS [facility] PRN Reason: Protocol Last Admin: 02/11/18 17:07 Dose: 3 units Memantine (Namenda) 5 mg PO BID [facility] Last Admin: 02/11/18 17:06 Dose: 5 mg Metolazone (Zaroxolyn) 2.5 mg PO DAILY [facility] Last Admin: 02/09/18 09:35 Dose: 2.5 mg [id number] Ethyl Esters (Lovaza) 1 gm PO DAILY [facility] Last Admin: 02/11/18 08:23 Dose: 1 gm Rivaroxaban (Xarelto) 15 mg PO DAILY [facility] PRN Reason: Protocol Last Admin: 02/11/18 08:24 Dose: 15 mg Sitagliptin Phosphate (Januvia) 25 mg PO DAILY [facility] Last Admin: 02/09/18 09:31 Dose: 25 mg Spironolactone (Aldactone) 50 mg PO DAILY [facility] Last Admin: 02/09/18 09:23 Dose: 50 mg Valsartan (Diovan) 160 mg PO DAILY [facility] Last Admin: 02/09/18 09:29 Dose: Not Given - Labs Labs: 02/11/18 04:20 02/11/18 04:20 - Constitutional Appears: Non-toxic - Head Exam Head Exam: NORMAL INSPECTION - Eye Exam Eye Exam: Normal appearance - ENT Exam ENT Exam: Mucous Membranes Moist - Neck Exam Neck Exam: Full ROM - Respiratory Exam Respiratory Exam: Decreased Breath Sounds - Cardiovascular Exam Cardiovascular Exam: REGULAR RHYTHM - GI/Abdominal Exam GI & Abdominal Exam: Normal Bowel Sounds - Rectal Exam Rectal Exam: Deferred - Extremities Exam Extremities Exam: Pedal Edema - Back Exam Back Exam: NORMAL INSPECTION - Skin Skin Exam: Normal Color Assessment and Plan (1) Hypotension Assessment & Plan: possibly realted to aspiration. medical tehraopy ans supportive care. d/c milrinone. Status: Acute (2) Cardiomyopathy Assessment & Plan: chronic systolic dysfunction. s/p AV fabiana ablation and PPM. medical therapy and anticoagulation Status: Acute
[2018-02-12] MEDS: Albuterol-Ipratrop 3 mg / 0.5 (3 ml) UD INH SCH ×4 (01:08→19:01)
[2018-02-12 05:28] LABS: HEMOGLOBIN 11.2 g/dL (12.0-16.0); MEAN CELL VOLUME 91.6 fl (81.0-99.0); MEAN CORPUSCULAR HEMOGLOBIN 29.6 pg (27.0-31.0); MEAN CORPUSCULAR HGB CONC 32.3 g/dL (33.0-37.0); RBC 3.78 Mil/uL (3.80-5.20); RED CELL DISTRIBUTION WIDTH 19.8 % (11.5-14.5)
[2018-02-12 05:48] LABS: CALCIUM 9.1 mg/dL (8.4-10.2)
[2018-02-12] MEDS: Insulin Lispro (humaLOG) 100 Units/ml Inj SC SCH ×4 (06:34→22:48)
[2018-02-12] MEDS: Omega-3-Acid Ethyl Esters 1 GM Cap PO SCH (08:49)
[2018-02-12] MEDS: Clindamycin 600mg/50ml D5W 600 MG/50 ML VIAL IVPB SCH ×2 (08:49→21:19)
--- NOTE | 2018-02-12 12:40 | CP.PCM.PN ---
Subjective - Date & Time of Evaluation Date of Evaluation: 02/12/18 Time of Evaluation: 08:55 - Subjective Subjective: Patient seen and examined this morning at bedside w/ Dr. Lawrence. There are no acute events overnight, NAD. Patient is speaking in full sentences and shows no respiratory distress. Patient denies headaches, chest pain, SOB, abdominal pain, nausea, vomiting, diarrhea, dysuria, or fever. Objective - Vital Signs/Intake and Output Vital Signs (last 24 hours): Temp Pulse Resp BP Pulse Ox 97.9 F 80 18 108/72 100 02/12/18 12:00 02/12/18 12:00 02/12/18 12:00 02/12/18 12:00 02/12/18 12:00 Intake and Output: 02/12/18 02/12/18 06:59 18:59 Intake Total 334 Output Total 250 Balance 84 - Medications Medications: Current Medications Acetaminophen (Tylenol 325mg Tab) 650 mg PO Q6 PRN PRN Reason: Pain, Mild (1-3) Last Admin: 02/11/18 21:55 Dose: 650 mg Albuterol/Ipratropium (Duoneb 3 Mg/0.5 Mg (3 Ml) Ud) 3 ml INH RQ6 [facility] Last Admin: 02/12/18 07:54 Dose: 3 ml Atorvastatin Calcium (Lipitor) 40 mg PO DAILY [facility] Last Admin: 02/09/18 09:32 Dose: 40 mg Carvedilol (Coreg) 12.5 mg PO Q12 [facility] Last Admin: 02/09/18 09:27 Dose: Not Given Clopidogrel Bisulfate (Plavix) 75 mg PO DAILY [facility] Last Admin: 02/09/18 09:33 Dose: 75 mg Dextrose (Dextrose 50% Inj) 0 ml IV STAT PRN; Protocol PRN Reason: Hypoglycemia Protocol Dextrose (Glutose 15) 0 gm PO ONCE PRN; Protocol PRN Reason: Hypoglycemia Protocol Gabapentin (Neurontin) 300 mg PO DAILY [facility] Last Admin: 02/09/18 09:33 Dose: 300 mg Glucagon (Glucagen Diagnostic Kit) 0 mg IM STAT PRN; Protocol PRN Reason: Hypoglycemia Protocol Home Med (Icosapent Ethyl [Vascepa]) 1 gm PO DAILY [facility] Home Med (Linagliptin [Tradjenta]) 5 mg PO DAILY [facility] Home Med (Memantine Hcl [Namenda Xr]) 14 mg PO QPM [facility] Piperacillin Sod/Tazobactam (Sod 2.25 gm/ Sodium Chloride) 100 mls @ 100 mls/ hr IVPB Q6 [facility] PRN Reason: Protocol Last Admin: 02/12/18 04:00 Dose: 100 mls/hr Clindamycin Phosphate (Cleocin) 600 mg in 50 mls @ 50 mls/hr IVPB Q12 [facility] PRN Reason: Protocol Last Admin: 02/12/18 08:49 Dose: 50 mls/hr Ibuprofen (Motrin Tab) 400 mg PO Q6 PRN PRN Reason: Pain, moderate (4-7) Insulin Human Lispro (Humalog) 0 units SC ACHS [facility] PRN Reason: Protocol Last Admin: 02/12/18 06:34 Dose: 1 units Memantine (Namenda) 5 mg PO BID [facility] Last Admin: 02/12/18 08:50 Dose: 5 mg Metolazone (Zaroxolyn) 2.5 mg PO DAILY [facility] Last Admin: 02/09/18 09:35 Dose: 2.5 mg [id number] Ethyl Esters (Lovaza) 1 gm PO DAILY [facility] Last Admin: 02/12/18 08:49 Dose: 1 gm Rivaroxaban (Xarelto) 15 mg PO DAILY [facility] PRN Reason: Protocol Last Admin: 02/12/18 08:50 Dose: 15 mg Sitagliptin Phosphate (Januvia) 25 mg PO DAILY [facility] Last Admin: 02/09/18 09:31 Dose: 25 mg Spironolactone (Aldactone) 50 mg PO DAILY [facility] Last Admin: 02/09/18 09:23 Dose: 50 mg Valsartan (Diovan) 160 mg PO DAILY [facility] Last Admin: 02/09/18 09:29 Dose: Not Given - Labs Labs: 02/12/18 04:20 02/12/18 04:20 - Constitutional Appears: Non-toxic, No Acute Distress - Head Exam Head Exam: ATRAUMATIC, NORMAL INSPECTION, NORMOCEPHALIC - Eye Exam Eye Exam: Normal appearance - ENT Exam ENT Exam: Mucous Membranes Moist - Neck Exam Neck Exam: Full ROM. absent: Tenderness - Respiratory Exam Respiratory Exam: Decreased Breath Sounds, Rhonchi. absent: Accessory Muscle Use, Wheezes, Respiratory Distress - Cardiovascular Exam Cardiovascular Exam: REGULAR RHYTHM. absent: Tachycardia - GI/Abdominal Exam GI & Abdominal Exam: Soft, Normal Bowel Sounds. absent: Distended, Tenderness - Extremities Exam Extremities Exam: absent: Calf Tenderness - Neurological Exam Neurological Exam: Alert, Awake - Skin Skin Exam: Dry, Intact, Normal Color, Warm Assessment and Plan (1) Pneumonia Status: Acute (2) Acute on chronic heart failure Status: Acute (3) COPD exacerbation Status: Acute (4) Coronary artery disease Status: Chronic (5) Osteoarthritis Status: Chronic (6) Atrial fibrillation Status: Chronic (7) HTN (hypertension) Status: Chronic (8) History of CVA (cerebrovascular accident) Status: Chronic (9) Pacemaker Status: Chronic (10) Fall Status: Acute - Assessment and Plan (Free Text) Plan: afebrile, non-tachycardic, normotensive Cardiology recommendations appreciated Pulmonology recommendations appreciated Infectious Disease recommendations appreciated podiatry consult ordered WBC 13.0 CT chest: small to moderate right pleural effusion, trace/small left pleural effusion clindamycin 600 mg Iv Q12h day 4 zosyn 2.25 gm IV Q6h day 2 duonebs INH Q6h [facility] lasix held due to borderline BP prophylactic measures: DVT on xarelto 15 mg PO daily for afib monitor for acute changes transfer to Med/Surg
--- NOTE | 2018-02-12 13:55 | CP.PCM.PN ---
Subjective - Date & Time of Evaluation Date of Evaluation: 02/12/18 Time of Evaluation: 11:00 - Subjective Subjective: F/U Respiratory Insufficiency. no SOB with O2 , POx 100% Objective - Vital Signs/Intake and Output Vital Signs (last 24 hours): Temp Pulse Resp BP Pulse Ox 97.9 F 80 18 108/72 100 02/12/18 12:00 02/12/18 12:00 02/12/18 12:00 02/12/18 12:00 02/12/18 12:00 Intake and Output: 02/12/18 02/12/18 06:59 18:59 Intake Total 334 Output Total 250 Balance 84 - Medications Medications: Current Medications Acetaminophen (Tylenol 325mg Tab) 650 mg PO Q6 PRN PRN Reason: Pain, Mild (1-3) Last Admin: 02/11/18 21:55 Dose: 650 mg Albuterol/Ipratropium (Duoneb 3 Mg/0.5 Mg (3 Ml) Ud) 3 ml INH RQ6 [facility] Last Admin: 02/12/18 13:25 Dose: 3 ml Atorvastatin Calcium (Lipitor) 40 mg PO DAILY [facility] Last Admin: 02/09/18 09:32 Dose: 40 mg Carvedilol (Coreg) 12.5 mg PO Q12 [facility] Last Admin: 02/09/18 09:27 Dose: Not Given Clopidogrel Bisulfate (Plavix) 75 mg PO DAILY [facility] Last Admin: 02/09/18 09:33 Dose: 75 mg Dextrose (Dextrose 50% Inj) 0 ml IV STAT PRN; Protocol PRN Reason: Hypoglycemia Protocol Dextrose (Glutose 15) 0 gm PO ONCE PRN; Protocol PRN Reason: Hypoglycemia Protocol Gabapentin (Neurontin) 300 mg PO DAILY [facility] Last Admin: 02/09/18 09:33 Dose: 300 mg Glucagon (Glucagen Diagnostic Kit) 0 mg IM STAT PRN; Protocol PRN Reason: Hypoglycemia Protocol Home Med (Icosapent Ethyl [Vascepa]) 1 gm PO DAILY [facility] Home Med (Linagliptin [Tradjenta]) 5 mg PO DAILY [facility] Home Med (Memantine Hcl [Namenda Xr]) 14 mg PO QPM [facility] Piperacillin Sod/Tazobactam (Sod 2.25 gm/ Sodium Chloride) 100 mls @ 100 mls/ hr IVPB Q6 [facility] PRN Reason: Protocol Last Admin: 02/12/18 04:00 Dose: 100 mls/hr Clindamycin Phosphate (Cleocin) 600 mg in 50 mls @ 50 mls/hr IVPB Q12 [facility] PRN Reason: Protocol Last Admin: 02/12/18 08:49 Dose: 50 mls/hr Ibuprofen (Motrin Tab) 400 mg PO Q6 PRN PRN Reason: Pain, moderate (4-7) Insulin Human Lispro (Humalog) 0 units SC ACHS [facility] PRN Reason: Protocol Last Admin: 02/12/18 06:34 Dose: 1 units Memantine (Namenda) 5 mg PO BID [facility] Last Admin: 02/12/18 08:50 Dose: 5 mg Metolazone (Zaroxolyn) 2.5 mg PO DAILY [facility] Last Admin: 02/09/18 09:35 Dose: 2.5 mg Vignt-6-Iweb Ethyl Esters (Lovaza) 1 gm PO DAILY [facility] Last Admin: 02/12/18 08:49 Dose: 1 gm Rivaroxaban (Xarelto) 15 mg PO DAILY [facility] PRN Reason: Protocol Last Admin: 02/12/18 08:50 Dose: 15 mg Sitagliptin Phosphate (Januvia) 25 mg PO DAILY [facility] Last Admin: 02/09/18 09:31 Dose: 25 mg Spironolactone (Aldactone) 50 mg PO DAILY [facility] Last Admin: 02/09/18 09:23 Dose: 50 mg Valsartan (Diovan) 160 mg PO DAILY [facility] Last Admin: 02/09/18 09:29 Dose: Not Given - Labs Labs: 02/12/18 04:20 02/12/18 04:20 - Constitutional Appears: Chronically Ill - Head Exam Head Exam: NORMAL INSPECTION - Eye Exam Eye Exam: PERRL - ENT Exam ENT Exam: Normal Exam - Neck Exam Neck Exam: Normal Inspection - Respiratory Exam Respiratory Exam: Decreased Breath Sounds, Rhonchi (scattered at bases) - GI/Abdominal Exam GI & Abdominal Exam: Soft, Normal Bowel Sounds - Extremities Exam Extremities Exam: Pedal Edema - Back Exam Back Exam: NORMAL INSPECTION - Neurological Exam Neurological Exam: Alert, CN II-XII Intact Additional comments: follows commands , no focal motor/sensory deficit - Psychiatric Exam Psychiatric exam: Normal Affect - Skin Skin Exam: Warm Assessment and Plan (1) Acute respiratory insufficiency Status: Acute (2) Pneumonia Status: Acute (3) COPD exacerbation Status: Acute (4) CHF (congestive heart failure) Status: Chronic - Assessment and Plan (Free Text) Plan: continue Clinda , Zosyn , DuoNeb and rest of treatment
--- NOTE | 2018-02-12 16:08 | CP.PCM.PN ---
Subjective - Date & Time of Evaluation Date of Evaluation: 02/12/18 Time of Evaluation: 16:06 - Subjective Subjective: ASKED TO SEE PT BY DR JACKMAN FOR CARDIOLOGY COVERAGE. pt without complaints, resting comfortably. Objective - Vital Signs/Intake and Output Vital Signs (last 24 hours): Temp Pulse Resp BP Pulse Ox 97.9 F 80 20 118/74 99 02/12/18 12:00 02/12/18 14:00 02/12/18 14:00 02/12/18 14:00 02/12/18 14:00 Intake and Output: 02/12/18 02/12/18 06:59 18:59 Intake Total 334 680 Output Total 250 Balance 84 680 - Medications Medications: Current Medications Acetaminophen (Tylenol 325mg Tab) 650 mg PO Q6 PRN PRN Reason: Pain, Mild (1-3) Last Admin: 02/11/18 21:55 Dose: 650 mg Albuterol/Ipratropium (Duoneb 3 Mg/0.5 Mg (3 Ml) Ud) 3 ml INH RQ6 [facility] Last Admin: 02/12/18 13:25 Dose: 3 ml Atorvastatin Calcium (Lipitor) 40 mg PO DAILY [facility] Last Admin: 02/09/18 09:32 Dose: 40 mg Carvedilol (Coreg) 12.5 mg PO Q12 [facility] Last Admin: 02/09/18 09:27 Dose: Not Given Clopidogrel Bisulfate (Plavix) 75 mg PO DAILY [facility] Last Admin: 02/09/18 09:33 Dose: 75 mg Dextrose (Dextrose 50% Inj) 0 ml IV STAT PRN; Protocol PRN Reason: Hypoglycemia Protocol Dextrose (Glutose 15) 0 gm PO ONCE PRN; Protocol PRN Reason: Hypoglycemia Protocol Gabapentin (Neurontin) 300 mg PO DAILY [facility] Last Admin: 02/09/18 09:33 Dose: 300 mg Glucagon (Glucagen Diagnostic Kit) 0 mg IM STAT PRN; Protocol PRN Reason: Hypoglycemia Protocol Home Med (Icosapent Ethyl [Vascepa]) 1 gm PO DAILY [facility] Home Med (Linagliptin [Tradjenta]) 5 mg PO DAILY [facility] Home Med (Memantine Hcl [Namenda Xr]) 14 mg PO QPM [facility] Piperacillin Sod/Tazobactam (Sod 2.25 gm/ Sodium Chloride) 100 mls @ 100 mls/ hr IVPB Q6 [facility] PRN Reason: Protocol Last Admin: 02/12/18 11:05 Dose: 100 mls/hr Clindamycin Phosphate (Cleocin) 600 mg in 50 mls @ 50 mls/hr IVPB Q12 [facility] PRN Reason: Protocol Last Admin: 02/12/18 08:49 Dose: 50 mls/hr Ibuprofen (Motrin Tab) 400 mg PO Q6 PRN PRN Reason: Pain, moderate (4-7) Insulin Human Lispro (Humalog) 0 units SC ACHS [facility] PRN Reason: Protocol Last Admin: 02/12/18 12:05 Dose: 3 units Memantine (Namenda) 5 mg PO BID [facility] Last Admin: 02/12/18 08:50 Dose: 5 mg Metolazone (Zaroxolyn) 2.5 mg PO DAILY [facility] Last Admin: 02/09/18 09:35 Dose: 2.5 mg Sawgf-3-Arwd Ethyl Esters (Lovaza) 1 gm PO DAILY [facility] Last Admin: 02/12/18 08:49 Dose: 1 gm Rivaroxaban (Xarelto) 15 mg PO DAILY [facility] PRN Reason: Protocol Last Admin: 02/12/18 08:50 Dose: 15 mg Sitagliptin Phosphate (Januvia) 25 mg PO DAILY [facility] Last Admin: 02/09/18 09:31 Dose: 25 mg Spironolactone (Aldactone) 50 mg PO DAILY [facility] Last Admin: 02/09/18 09:23 Dose: 50 mg Valsartan (Diovan) 160 mg PO DAILY [facility] Last Admin: 02/09/18 09:29 Dose: Not Given - Labs Labs: 02/12/18 04:20 02/12/18 04:20 - Constitutional Appears: Well - Head Exam Head Exam: ATRAUMATIC, NORMAL INSPECTION, NORMOCEPHALIC - Eye Exam Eye Exam: EOMI, Normal appearance, PERRL. absent: Conjunctival injection, Nystagmus, Periorbital swelling, Periorbital tenderness, Scleral icterus Pupil Exam: NORMAL ACCOMODATION, PERRL - ENT Exam ENT Exam: Mucous Membranes Moist, Normal Exam. absent: Mucous Membranes Dry, Normal External Ear Exam, Normal Oropharynx, TM's Normal Bilaterally - Neck Exam Neck Exam: Full ROM, Normal Inspection. absent: Lymphadenopathy, Meningismus, Tenderness, Thyromegaly - Respiratory Exam Respiratory Exam: Rhonchi, NORMAL BREATHING PATTERN. absent: Accessory Muscle Use, Chest Wall Tenderness, Decreased Breath Sounds, Clear to Ausculation Bilateral, Prolonged Expiratory Phase, Rales, Wheezes, Respiratory Distress, Stridor - Cardiovascular Exam Cardiovascular Exam: REGULAR RHYTHM, +S1, +S2, Murmur. absent: Bradycardia, Tachycardia, Clicks, Diastolic murmur, Gallop, Irregular Rhythm, JVD, RRR, Rubs , +S4 - GI/Abdominal Exam GI & Abdominal Exam: Soft, Normal Bowel Sounds. absent: Bruit, Distended, Firm , Guarding, Rigid, Tenderness, Diminished Bowel Sounds, Hernia, Hyperactive Bowel Sounds, Hypoactive Bowel Sounds, Organomegaly, Pulsatile Mass, Rebound, Mass - Rectal Exam Rectal Exam: Deferred - Extremities Exam Extremities Exam: Full ROM, Normal Capillary Refill, Pedal Edema - Back Exam Back Exam: NORMAL INSPECTION. absent: CVA tenderness (L), CVA tenderness (R), Full ROM, muscle spasm, paraspinal tenderness, rash noted, tenderness, vertebral tenderness - Neurological Exam Neurological Exam: Alert, Awake, CN II-XII Intact, Normal Gait, Oriented x3. absent: Abnormal Gait, Altered, Motor Sensory Deficit, Reflexes Normal - Psychiatric Exam Psychiatric exam: Normal Affect, Normal Mood. absent: Agitated, Anxious, Depressed, Flat Affect, Homicidal Ideation, Manic, Suicidal Ideation - Skin Skin Exam: Dry, Intact, Normal Color, Warm. absent: Abrasion, Cyanosis, Diaphoretic, Erythema, Mottled, Pallor, Pallor, Petechiae, Rash, Urticaria, Vesicles Assessment and Plan (1) Acute on chronic heart failure Status: Acute (2) Cardiomyopathy Status: Acute (3) Pneumonia Status: Acute (4) Bronchitis Status: Acute (5) Atrial fibrillation Status: Chronic (6) Pacemaker Status: Chronic - Assessment and Plan (Free Text) Plan: cont abx therapy. cont current cardiac meds. chart reviewed.
[2018-02-12] MEDS ORDERED: Albuterol-Ipratrop 3 mg / 0.5 (3 ml) UD INH STA (23:57)
--- NOTE | 2018-02-13 00:26 | PCM.RRT ---
TEAR DOWN MATCHER Nurse Assessment - Situation TEAR DOWN MATCHER Responder Arrival Time: 23:14 - Ventilator Settings FIO2 (% Oxygen): 50 Plan - Assessment of Findings&Treatment Plan TEAR DOWN MATCHER TEAR DOWN MATCHER Time: 23:50 TEAR DOWN MATCHER Location: [facility] TEAR DOWN MATCHER Arrival: 23:51 TEAR DOWN MATCHER Reason: SOB, dyspnea S: 82 yo F with pmhx of DIDDM2, COPD, Diastolic HF, CAD, pacemaker and dementia , reported SOB and dyspnea. Nurse added NC and increased to 3L O: TEAR DOWN MATCHER Vitals: T: 97.9 BP: 119/65 HR: 77 RR: 18 General: In acute distress 2/2 dyspnea Cardiac: S1 S2 Resp: crackles on all lung pedroza Abdo: soft, nontender active bowel sounds TEAR DOWN MATCHER intervention: -DUONEB x1; CXR; BIPAP, -med: Lasix: 20 mg IV once -Of note: last Duoneb treatment was 4 hours prior. -2 minutes after starting BIPAP, pt had decreased labored breathing. Saturating well at 99%. A/P: 82 yo F with pmhx of DIDDM2, COPD, Diastolic HF, CAD, pacemaker and dementia, reported SOB and dyspnea. TEAR DOWN MATCHER Outcome: -Pt started on BIPAP -F/U ABG in AM TEAR DOWN MATCHER vitals: 143/82; 80 bpm; 99% O2 sat on BIPAP; TEAR DOWN MATCHER Leader: Dr. Fuentes TEAR DOWN MATCHER residents: Anna Lombardi MD PGY2; Jose Rose MD PGY1
[2018-02-13] MEDS: Albuterol-Ipratrop 3 mg / 0.5 (3 ml) UD INH SCH ×4 (01:00→19:02)
[2018-02-13 05:21] LABS: ABG ALLEN TEST YES; ARTERIAL BLOOD GAS HCO3 24.4 mmol/L (21-28); ARTERIAL BLOOD GAS O2 CAPACITY 16.6 mL/dL (16-24); ARTERIAL BLOOD GAS O2 CONTENT 16.6 ML/dL (15-23); ARTERIAL BLOOD GAS O2 SAT 99.8 % (95-98); ARTERIAL BLOOD GAS PCO2 40 mm/Hg (35-45); ARTERIAL BLOOD GAS PH 7.39 (7.35-7.45); ARTERIAL BLOOD GAS PO2 185 mm/Hg (80-100); ARTERIAL BLOOD GAS TCO2 25.4 mmol/L (22-28)
--- NOTE | 2018-02-13 07:25 | RAD ---
PROCEDURE: CHEST RADIOGRAPH, 1 VIEW HISTORY: sob, dyspnea COMPARISON: Chest radiograph 02/09/2018. FINDINGS: LUNGS: Bilateral pleural effusions are mild but have increased in volume in the interval with underlying bilateral basilar airspace disease not excluded. Patchy density is developing the right perihilar region with mild pulmonary vascular congestion reiterated. 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 OSSEOUS STRUCTURES: No significant abnormalities. VISUALIZED UPPER ABDOMEN: Normal. OTHER FINDINGS: None. IMPRESSION: Mild but interval increased bilateral pleural effusions with mild pulmonary vascular congestion present. Bilateral basilar airspace disease not excluded as well as developing in the right perihilar region.
[2018-02-13 08:36] LABS: BASO % 0.1 % (0.0-2.0); EOS % 0.2 % (0.0-4.0); HEMOGLOBIN 11.7 g/dL (12.0-16.0); LYMPH # 1.2 K/uL (1.0-4.3); LYMPH % 8.7 % (20.0-40.0); MEAN CELL VOLUME 91.4 fl (81.0-99.0); MEAN CORPUSCULAR HEMOGLOBIN 29.3 pg (27.0-31.0); MEAN CORPUSCULAR HGB CONC 32.1 g/dL (33.0-37.0); MEAN PLATELET VOLUME 11.3 fl (7.2-11.7); MONO # 0.6 K/uL (0.0-0.8); MONO % 4.1 % (0.0-10.0); NEUT # 12.3 K/uL (1.8-7.0); NEUT % 86.9 % (50.0-75.0); NRBC % 0.4 % (0.0-0.0); PLATELET COUNT 176 K/uL (130-400); RBC 3.98 Mil/uL (3.80-5.20); RED CELL DISTRIBUTION WIDTH 19.6 % (11.5-14.5); WHITE BLOOD COUNT 14.2 K/uL (4.8-10.8)
[2018-02-13] MEDS: Clindamycin 600mg/50ml D5W 600 MG/50 ML VIAL IVPB SCH ×2 (08:42→20:45)
[2018-02-13] MEDS: Insulin Lispro (humaLOG) 100 Units/ml Inj SC SCH ×4 (08:42→22:38)
[2018-02-13] MEDS: Omega-3-Acid Ethyl Esters 1 GM Cap PO SCH (08:43)
--- NOTE | 2018-02-13 08:56 | PN ---
DATE: 02/12/2018 CRITICAL CARE PROGRESS NOTE LOCATION: The patient in ICU, bed 432. TIME SPENT: 35 minutes. The patient is seen and evaluated at the bedside. Past medical, surgical, and social history are reviewed. SUBJECTIVE: An 82-year-old female admitted after a fall at home, admitted with hypotension, change in the mental status, status post fluid challenge, remained hypotensive and currently off pressors and milrinone, suspected cardiomyopathy. Overnight telemetry, sinus rhythm, low to normal systolic blood pressure, and oxygen supplement 2 liters nasal cannula, saturating 97%. PHYSICAL EXAMINATION: VITAL SIGNS: Temperature 97.9, heart rate 80, respiratory rate 18, blood pressure 108/72, oxygen saturation 100% on 2 liters nasal cannula. HEAD, EYES, EARS, NOSE AND THROAT: Pupils round and reactive. Conjunctivae pink. Sclerae white. NECK: Supple. Trachea is central. CHEST: Bilateral breath sounds with scattered rhonchi. HEART: Rhythm regular. S1 and S2 normal. No audible murmur. ABDOMEN: Bowel sounds are present and soft. Liver and spleen not palpable. Bladder not distended. EXTREMITIES: With dependent edema. NEUROLOGIC: Alert and awake and able to follow commands appropriate. SKIN: Dry and without rash. No sacral breakdown. LABORATORY DATA AND DIAGNOSTIC DATA: Chest dated 02/10/2018: Pulmonary vascular congestion, [id number] right and trace small left pleural effusion, small amount of atelectasis seen in the right upper and right lower lingula and left lower lobe. WBC 13, hemoglobin 11.2, hematocrit 34.6, platelet count of 167. ABG; pH of 7.31, pCO2 of 41, bicarbonate 20.4, oxygen saturation 84.4%. Lactate 1.2. SMA-7; sodium 136, potassium 3.8, chloride of 103, CO2 is 25, blood urea nitrogen 55, creatinine 1.7, random glucose of 177-180. Urine culture, no growth. Nasal smear MRSA negative. ASSESSMENT AND PLAN: 1. Neurologic; altered mental status, underlying dementia: Clearing septic metabolic encephalopathy. 2. Pulmonary; bilateral pleural effusion with atelectasis, limited bibasilar airspace disease: Continue oxygen supplement. 3. Cardiac; hypotension, improved. Seen by cardiology consult, off milrinone. Continue Diovan, Aldactone, and Xarelto. 4. Infectious disease, suspected aspiration pneumonia: On Zosyn 2.25 gm IV every 6 hours. 5. Paroxysmal atrial fibrillation, on Xarelto. 6. History of dementia, on Namenda. 7. Diabetes mellitus type 2. Continue Accu-Chek with regular insulin coverage. Keep head of bed 30 degree up. OT, PT as tolerated. Out of bed to chair. Tavo Robles MD
[2018-02-13 09:05] LABS: ALBUMIN 2.9 g/dL (3.5-5.0); CALCIUM 9.4 mg/dL (8.4-10.2)
[2018-02-13] MEDS ORDERED: methylPREDNISolone 30 MG in Sodium Chloride 0.9% 50 ML IVPB SCH (10:15)
[2018-02-13 10:49] LABS: BANDS 2 % (0-2); LYMPHOCYTE 11 % (20-50); MONOCYTE 4 % (0-10); NEUTROPHIL 83 % (42-75); NUCLEATED RED BLOOD CELL 2 % (0-0); TOTAL CELLS COUNTED 100
[2018-02-13 10:50] LABS: ANISOCYTOSIS SLIGHT; LARGE PLATELETS PRESENT; OVALOCYTES SLIGHT; PLATELET ESTIMATE NORMAL (NORMAL); POIKILOCYTOSIS SLIGHT
[2018-02-13] MEDS: MethylPREDNISolone 40 mg Vial IVP SCH ×3 (11:27→23:59)
--- NOTE | 2018-02-13 14:10 | CP.PCM.PN ---
Subjective - Date & Time of Evaluation Date of Evaluation: 02/13/18 Time of Evaluation: 09:35 - Subjective Subjective: Patient seen and examined this morning at bedside w/ Dr. Lawrence. Patient had [employer] early this morning. Patient placed on Bipap and dyspnea resolved. Patient is speaking in full sentences but is mildly labored. Patient denies headaches, chest pain, SOB, abdominal pain, nausea, vomiting, diarrhea, dysuria, or fever. Objective - Vital Signs/Intake and Output Vital Signs (last 24 hours): Temp Pulse Resp BP Pulse Ox 97.5 F L 64 21 117/72 64 L 02/13/18 07:57 02/13/18 07:57 02/13/18 12:50 02/13/18 12:50 02/13/18 12:50 Intake and Output: 02/13/18 02/13/18 06:59 18:59 Intake Total 500 Output Total 1150 Balance -650 - Medications Medications: Current Medications Acetaminophen (Tylenol 325mg Tab) 650 mg PO Q6 PRN PRN Reason: Pain, Mild (1-3) Last Admin: 02/11/18 21:55 Dose: 650 mg Albuterol/Ipratropium (Duoneb 3 Mg/0.5 Mg (3 Ml) Ud) 3 ml INH RQ6 [facility] Last Admin: 02/13/18 13:26 Dose: 3 ml Atorvastatin Calcium (Lipitor) 40 mg PO DAILY [facility] Last Admin: 02/09/18 09:32 Dose: 40 mg Carvedilol (Coreg) 12.5 mg PO Q12 [facility] Last Admin: 02/09/18 09:27 Dose: Not Given Clopidogrel Bisulfate (Plavix) 75 mg PO DAILY [facility] Last Admin: 02/09/18 09:33 Dose: 75 mg Dextrose (Dextrose 50% Inj) 0 ml IV STAT PRN; Protocol PRN Reason: Hypoglycemia Protocol Dextrose (Glutose 15) 0 gm PO ONCE PRN; Protocol PRN Reason: Hypoglycemia Protocol Furosemide (Lasix) 40 mg IVP DAILY [facility] Last Admin: 02/13/18 10:27 Dose: 40 mg Gabapentin (Neurontin) 300 mg PO DAILY [facility] Last Admin: 02/09/18 09:33 Dose: 300 mg Glucagon (Glucagen Diagnostic Kit) 0 mg IM STAT PRN; Protocol PRN Reason: Hypoglycemia Protocol Home Med (Icosapent Ethyl [Vascepa]) 1 gm PO DAILY [facility] Home Med (Linagliptin [Tradjenta]) 5 mg PO DAILY [facility] Home Med (Memantine Hcl [Namenda Xr]) 14 mg PO QPM [facility] Piperacillin Sod/Tazobactam (Sod 2.25 gm/ Sodium Chloride) 100 mls @ 100 mls/ hr IVPB Q6 [facility] PRN Reason: Protocol Last Admin: 02/13/18 09:42 Dose: 100 mls/hr Clindamycin Phosphate (Cleocin) 600 mg in 50 mls @ 50 mls/hr IVPB Q12 [facility] PRN Reason: Protocol Last Admin: 02/13/18 08:42 Dose: 50 mls/hr Ibuprofen (Motrin Tab) 400 mg PO Q6 PRN PRN Reason: Pain, moderate (4-7) Insulin Human Lispro (Humalog) 0 units SC ACHS [facility] PRN Reason: Protocol Last Admin: 02/13/18 12:43 Dose: Not Given Memantine (Namenda) 5 mg PO BID [facility] Last Admin: 02/13/18 08:43 Dose: 5 mg Methylprednisolone (Solu-Medrol) 30 mg IVP Q8 [facility] Last Admin: 02/13/18 11:27 Dose: 30 mg Metolazone (Zaroxolyn) 2.5 mg PO DAILY [facility] Last Admin: 02/09/18 09:35 Dose: 2.5 mg Ubbog-4-Qrbg Ethyl Esters (Lovaza) 1 gm PO DAILY [facility] Last Admin: 02/13/18 08:43 Dose: 1 gm Rivaroxaban (Xarelto) 15 mg PO DAILY [facility] PRN Reason: Protocol Last Admin: 02/13/18 08:43 Dose: 15 mg Sitagliptin Phosphate (Januvia) 25 mg PO DAILY [facility] Last Admin: 02/09/18 09:31 Dose: 25 mg Spironolactone (Aldactone) 50 mg PO DAILY [facility] Last Admin: 02/09/18 09:23 Dose: 50 mg Valsartan (Diovan) 160 mg PO DAILY [facility] Last Admin: 02/09/18 09:29 Dose: Not Given - Labs Labs: 02/13/18 08:26 02/13/18 08:26 - Constitutional Appears: Non-toxic, No Acute Distress - Head Exam Head Exam: ATRAUMATIC, NORMAL INSPECTION, NORMOCEPHALIC - Eye Exam Eye Exam: Normal appearance - ENT Exam ENT Exam: Mucous Membranes Moist - Neck Exam Neck Exam: Full ROM. absent: Tenderness - Respiratory Exam Respiratory Exam: Decreased Breath Sounds, Rhonchi, Wheezes (mild left lateral) . absent: Accessory Muscle Use, Rales, Respiratory Distress - Cardiovascular Exam Cardiovascular Exam: REGULAR RHYTHM. absent: Tachycardia - GI/Abdominal Exam GI & Abdominal Exam: Soft, Normal Bowel Sounds. absent: Distended, Tenderness - Extremities Exam Extremities Exam: absent: Calf Tenderness - Neurological Exam Neurological Exam: Alert, Awake, Oriented x3 - Skin Skin Exam: Dry, Intact, Normal Color, Warm Assessment and Plan (1) Pneumonia Status: Acute (2) Acute on chronic heart failure Status: Acute (3) COPD exacerbation Status: Acute (4) Coronary artery disease Status: Chronic (5) Osteoarthritis Status: Chronic (6) Atrial fibrillation Status: Chronic (7) HTN (hypertension) Status: Chronic (8) History of CVA (cerebrovascular accident) Status: Chronic (9) Pacemaker Status: Chronic (10) Fall Status: Acute - Assessment and Plan (Free Text) Plan: afebrile, non-tachycardic, normotensive Cardiology recommendations appreciated Pulmonology recommendations appreciated Infectious Disease recommendations appreciated podiatry consult ordered WBC 14.2 CXR: mild but increased bilateral pleural effusion clindamycin 600 mg IV Q12h day 5 zosyn 2.25 gm IV Q6h day 3 solu-medrol 30 mg IV Q8h duonebs INH Q6h [facility] lasix 40 mg IV daily f/u CBC and CMP in AM prophylactic measures: DVT on xarelto 15 mg PO daily for afib monitor for acute changes
--- NOTE | 2018-02-13 16:12 | CP.PCM.PN ---
Subjective - Date & Time of Evaluation Date of Evaluation: 02/13/18 Time of Evaluation: 16:07 - Subjective Subjective: PT WITH ACUTE DYSPNEA OVERNIGHT. GUEST SERVICE HOST CALLED. PT GIVEN LASIX 40MG IV X 2 WITH SOME RELIEF. BIPAP WAS STARTED. PT CONTINUES TO BE SOB. Objective - Vital Signs/Intake and Output Vital Signs (last 24 hours): Temp Pulse Resp BP Pulse Ox 97.5 F L 64 21 117/72 99 02/13/18 07:57 02/13/18 12:50 02/13/18 12:50 02/13/18 12:50 02/13/18 12:50 Intake and Output: 02/13/18 02/13/18 06:59 18:59 Intake Total 500 350 Output Total 1150 1050 Balance -650 -700 - Medications Medications: Current Medications Acetaminophen (Tylenol 325mg Tab) 650 mg PO Q6 PRN PRN Reason: Pain, Mild (1-3) Last Admin: 02/11/18 21:55 Dose: 650 mg Albuterol/Ipratropium (Duoneb 3 Mg/0.5 Mg (3 Ml) Ud) 3 ml INH RQ6 [facility] Last Admin: 02/13/18 13:26 Dose: 3 ml Atorvastatin Calcium (Lipitor) 40 mg PO DAILY [facility] Last Admin: 02/09/18 09:32 Dose: 40 mg Carvedilol (Coreg) 12.5 mg PO Q12 [facility] Last Admin: 02/09/18 09:27 Dose: Not Given Clopidogrel Bisulfate (Plavix) 75 mg PO DAILY [facility] Last Admin: 02/09/18 09:33 Dose: 75 mg Dextrose (Dextrose 50% Inj) 0 ml IV STAT PRN; Protocol PRN Reason: Hypoglycemia Protocol Dextrose (Glutose 15) 0 gm PO ONCE PRN; Protocol PRN Reason: Hypoglycemia Protocol Furosemide (Lasix) 40 mg IVP DAILY [facility] Last Admin: 02/13/18 10:27 Dose: 40 mg Gabapentin (Neurontin) 300 mg PO DAILY [facility] Last Admin: 02/09/18 09:33 Dose: 300 mg Glucagon (Glucagen Diagnostic Kit) 0 mg IM STAT PRN; Protocol PRN Reason: Hypoglycemia Protocol Home Med (Icosapent Ethyl [Vascepa]) 1 gm PO DAILY [facility] Home Med (Linagliptin [Tradjenta]) 5 mg PO DAILY [facility] Home Med (Memantine Hcl [Namenda Xr]) 14 mg PO QPM [facility] Piperacillin Sod/Tazobactam (Sod 2.25 gm/ Sodium Chloride) 100 mls @ 100 mls/ hr IVPB Q6 [facility] PRN Reason: Protocol Last Admin: 02/13/18 09:42 Dose: 100 mls/hr Clindamycin Phosphate (Cleocin) 600 mg in 50 mls @ 50 mls/hr IVPB Q12 [facility] PRN Reason: Protocol Last Admin: 02/13/18 08:42 Dose: 50 mls/hr Ibuprofen (Motrin Tab) 400 mg PO Q6 PRN PRN Reason: Pain, moderate (4-7) Insulin Human Lispro (Humalog) 0 units SC ACHS [facility] PRN Reason: Protocol Last Admin: 02/13/18 12:43 Dose: Not Given Memantine (Namenda) 5 mg PO BID [facility] Last Admin: 02/13/18 08:43 Dose: 5 mg Methylprednisolone (Solu-Medrol) 30 mg IVP Q8 [facility] Last Admin: 02/13/18 11:27 Dose: 30 mg Metolazone (Zaroxolyn) 2.5 mg PO DAILY [facility] Last Admin: 02/09/18 09:35 Dose: 2.5 mg [id number]-1-[id number] Ethyl Esters (Lovaza) 1 gm PO DAILY [facility] Last Admin: 02/13/18 08:43 Dose: 1 gm Rivaroxaban (Xarelto) 15 mg PO DAILY [facility] PRN Reason: Protocol Last Admin: 02/13/18 08:43 Dose: 15 mg Sitagliptin Phosphate (Januvia) 25 mg PO DAILY [facility] Last Admin: 02/09/18 09:31 Dose: 25 mg Spironolactone (Aldactone) 50 mg PO DAILY [facility] Last Admin: 02/09/18 09:23 Dose: 50 mg Valsartan (Diovan) 160 mg PO DAILY [facility] Last Admin: 02/09/18 09:29 Dose: Not Given - Labs Labs: 02/13/18 08:26 02/13/18 08:26 - Constitutional Appears: Well - Head Exam Head Exam: ATRAUMATIC, NORMAL INSPECTION, NORMOCEPHALIC - Eye Exam Eye Exam: EOMI, Normal appearance, PERRL. absent: Conjunctival injection, Nystagmus, Periorbital swelling, Periorbital tenderness, Scleral icterus Pupil Exam: NORMAL ACCOMODATION, PERRL - ENT Exam ENT Exam: Mucous Membranes Dry. absent: Mucous Membranes Moist, Normal Exam, Normal External Ear Exam, Normal Oropharynx, TM's Normal Bilaterally - Neck Exam Neck Exam: Full ROM, Normal Inspection. absent: Lymphadenopathy, Meningismus, Tenderness, Thyromegaly - Respiratory Exam Respiratory Exam: Rhonchi, Wheezes. absent: Accessory Muscle Use, Chest Wall Tenderness, Decreased Breath Sounds, Clear to Ausculation Bilateral, Prolonged Expiratory Phase, Rales, Respiratory Distress, Stridor, NORMAL BREATHING PATTERN Additional comments: INSP RHONCHI AND EXP WHEEZING HEARD MAINLY ANTERIORLY. NOT CRACKLES OR DULLNESS. - Cardiovascular Exam Cardiovascular Exam: Diastolic murmur, REGULAR RHYTHM, +S1, +S2, Murmur. absent : Bradycardia, Tachycardia, Clicks, Gallop, Irregular Rhythm, JVD, RRR, Rubs, + S4 - GI/Abdominal Exam GI & Abdominal Exam: Soft, Normal Bowel Sounds. absent: Bruit, Distended, Firm , Guarding, Rigid, Tenderness, Diminished Bowel Sounds, Hernia, Hyperactive Bowel Sounds, Hypoactive Bowel Sounds, Organomegaly, Pulsatile Mass, Rebound, Mass - Rectal Exam Rectal Exam: Deferred - Extremities Exam Extremities Exam: Full ROM, Normal Capillary Refill. absent: Calf Tenderness, Joint Swelling, Normal Inspection, Pedal Edema, Tenderness - Back Exam Back Exam: NORMAL INSPECTION. absent: CVA tenderness (L), CVA tenderness (R), Full ROM, muscle spasm, paraspinal tenderness, rash noted, tenderness, vertebral tenderness - Neurological Exam Neurological Exam: Alert, Awake, CN II-XII Intact, Normal Gait, Oriented x3. absent: Abnormal Gait, Altered, Motor Sensory Deficit, Reflexes Normal - Psychiatric Exam Psychiatric exam: Normal Affect, Normal Mood. absent: Agitated, Anxious, Depressed, Flat Affect, Homicidal Ideation, Manic, Suicidal Ideation - Skin Skin Exam: Dry, Intact, Normal Color, Warm. absent: Abrasion, Cyanosis, Diaphoretic, Erythema, Mottled, Pallor, Pallor, Petechiae, Rash, Urticaria, Vesicles Assessment and Plan (1) Acute on chronic heart failure Status: Chronic (2) Cardiomyopathy Status: Acute (3) Pneumonia Status: Acute (4) Bronchitis Status: Acute (5) Atrial fibrillation Status: Chronic (6) Pacemaker Status: Chronic - Assessment and Plan (Free Text) Plan: BUN/CR ELEVATED. ECHO REVIEWED. EF IS LOW NORMAL, RV IS DILATED WITH PHTN. CLINICALLY DRY. WOULD HOLD LASIX IF PATIENTS BUN/CR INCREASES TOMORROW. GIVEN WBC WOULD CONSIDER PULM AND ID EVAL. HR AND BP WNL.
--- NOTE | 2018-02-13 18:24 | CP.PCM.PN ---
Subjective - Date & Time of Evaluation Date of Evaluation: 02/13/18 Time of Evaluation: 11:00 - Subjective Subjective: F/U Respiratory Insufficiency. SOB on NC 2L m Objective - Vital Signs/Intake and Output Vital Signs (last 24 hours): Temp Pulse Resp BP Pulse Ox 97.5 F L 77 20 138/84 99 02/13/18 16:18 02/13/18 16:18 02/13/18 16:18 02/13/18 16:18 02/13/18 16:18 Intake and Output: 02/13/18 02/13/18 06:59 18:59 Intake Total 500 350 Output Total 1150 1050 Balance -650 -700 - Medications Medications: Current Medications Acetaminophen (Tylenol 325mg Tab) 650 mg PO Q6 PRN PRN Reason: Pain, Mild (1-3) Last Admin: 02/11/18 21:55 Dose: 650 mg Albuterol/Ipratropium (Duoneb 3 Mg/0.5 Mg (3 Ml) Ud) 3 ml INH RQ6 [facility] Last Admin: 02/13/18 13:26 Dose: 3 ml Atorvastatin Calcium (Lipitor) 40 mg PO DAILY [facility] Last Admin: 02/09/18 09:32 Dose: 40 mg Carvedilol (Coreg) 12.5 mg PO Q12 [facility] Last Admin: 02/09/18 09:27 Dose: Not Given Clopidogrel Bisulfate (Plavix) 75 mg PO DAILY [facility] Last Admin: 02/09/18 09:33 Dose: 75 mg Dextrose (Dextrose 50% Inj) 0 ml IV STAT PRN; Protocol PRN Reason: Hypoglycemia Protocol Dextrose (Glutose 15) 0 gm PO ONCE PRN; Protocol PRN Reason: Hypoglycemia Protocol Furosemide (Lasix) 40 mg IVP DAILY [facility] Last Admin: 02/13/18 10:27 Dose: 40 mg Gabapentin (Neurontin) 300 mg PO DAILY [facility] Last Admin: 02/09/18 09:33 Dose: 300 mg Glucagon (Glucagen Diagnostic Kit) 0 mg IM STAT PRN; Protocol PRN Reason: Hypoglycemia Protocol Home Med (Icosapent Ethyl [Vascepa]) 1 gm PO DAILY [facility] Home Med (Linagliptin [Tradjenta]) 5 mg PO DAILY [facility] Home Med (Memantine Hcl [Namenda Xr]) 14 mg PO QPM [facility] Piperacillin Sod/Tazobactam (Sod 2.25 gm/ Sodium Chloride) 100 mls @ 100 mls/ hr IVPB Q6 [facility] PRN Reason: Protocol Last Admin: 02/13/18 16:47 Dose: 100 mls/hr Clindamycin Phosphate (Cleocin) 600 mg in 50 mls @ 50 mls/hr IVPB Q12 [facility] PRN Reason: Protocol Last Admin: 02/13/18 08:42 Dose: 50 mls/hr Ibuprofen (Motrin Tab) 400 mg PO Q6 PRN PRN Reason: Pain, moderate (4-7) Insulin Human Lispro (Humalog) 0 units SC ACHS [facility] PRN Reason: Protocol Last Admin: 02/13/18 18:06 Dose: Not Given Memantine (Namenda) 5 mg PO BID [facility] Last Admin: 02/13/18 16:48 Dose: 5 mg Methylprednisolone (Solu-Medrol) 30 mg IVP Q8 [facility] Last Admin: 02/13/18 16:49 Dose: 30 mg Metolazone (Zaroxolyn) 2.5 mg PO DAILY [facility] Last Admin: 02/09/18 09:35 Dose: 2.5 mg [id number]-0-[id number] Ethyl Esters (Lovaza) 1 gm PO DAILY [facility] Last Admin: 02/13/18 08:43 Dose: 1 gm Rivaroxaban (Xarelto) 15 mg PO DAILY [facility] PRN Reason: Protocol Last Admin: 02/13/18 08:43 Dose: 15 mg Sitagliptin Phosphate (Januvia) 25 mg PO DAILY [facility] Last Admin: 02/09/18 09:31 Dose: 25 mg Spironolactone (Aldactone) 50 mg PO DAILY [facility] Last Admin: 02/09/18 09:23 Dose: 50 mg Valsartan (Diovan) 160 mg PO DAILY [facility] Last Admin: 02/09/18 09:29 Dose: Not Given - Labs Labs: 02/13/18 08:26 02/13/18 08:26 - Constitutional Appears: Chronically Ill - Head Exam Head Exam: NORMAL INSPECTION - Eye Exam Eye Exam: PERRL - ENT Exam Additional comments: On BIPAP - Neck Exam Neck Exam: Normal Inspection - Respiratory Exam Respiratory Exam: Decreased Breath Sounds, Rhonchi, Wheezes - Cardiovascular Exam Cardiovascular Exam: REGULAR RHYTHM - GI/Abdominal Exam GI & Abdominal Exam: Soft, Normal Bowel Sounds - Extremities Exam Extremities Exam: Pedal Edema - Back Exam Back Exam: NORMAL INSPECTION - Neurological Exam Neurological Exam: Alert, CN II-XII Intact Additional comments: Forgetful, obeys commands - Psychiatric Exam Psychiatric exam: Normal Affect - Skin Skin Exam: Warm Assessment and Plan (1) Acute respiratory insufficiency Status: Acute (2) Pneumonia Status: Acute (3) COPD exacerbation Status: Acute (4) CHF (congestive heart failure) Assessment & Plan: on chronic Status: Acute - Assessment and Plan (Free Text) Plan: Patient had COMMUNITY REPRESENTATIVE 11pm yesterday , treated with BIPAP , there after Patient was back on NC 2Lm , still SOB , CXR increasing CHF , Pleural effusion , Pneumonia, treated with Lasix , Solu Medrol, continue DuoNeb , Clinda , Zosyn
[2018-02-14] MEDS: Albuterol-Ipratrop 3 mg / 0.5 (3 ml) UD INH SCH ×6 (02:47→19:02)
[2018-02-14 06:17] LABS: HEMOGLOBIN 11.1 g/dL (12.0-16.0); MEAN CELL VOLUME 91.6 fl (81.0-99.0); MEAN CORPUSCULAR HEMOGLOBIN 29.6 pg (27.0-31.0); MEAN CORPUSCULAR HGB CONC 32.3 g/dL (33.0-37.0); RBC 3.74 Mil/uL (3.80-5.20); RED CELL DISTRIBUTION WIDTH 19.6 % (11.5-14.5); WHITE BLOOD COUNT 13.9 K/uL (4.8-10.8)
[2018-02-14 06:59] LABS: ALBUMIN 2.8 g/dL (3.5-5.0); CALCIUM 9.2 mg/dL (8.4-10.2)
[2018-02-14] MEDS: Clindamycin 600mg/50ml D5W 600 MG/50 ML VIAL IVPB SCH (08:17)
[2018-02-14] MEDS: MethylPREDNISolone 40 mg Vial IVP SCH ×2 (08:18→21:31)
[2018-02-14] MEDS: Insulin Lispro (humaLOG) 100 Units/ml Inj SC SCH ×4 (08:19→22:30)
[2018-02-14] MEDS: Omega-3-Acid Ethyl Esters 1 GM Cap PO SCH (08:19)
--- NOTE | 2018-02-14 08:35 | PQF DECUBI ---
In agreement with lace roller or Wound power shovel engineer as listed below?: 02/08: Nursing Pressure Ulcer Assessment: Sacrum: Partial Thickness losss of dermis presenting as a shallow open ulcer 02/12 :Wound RN :has developed MASD with erosion to sacrum 02/13: Nursing: Pressure Ulcer Assessment: Sacrum: Moisture Associated Skin Damage(MASD); Intact skin with non-blanchable redness of a localized area OR: Disagree OR: Other explanation of clinical finding H and P: Decubitus Ulcer Present: No This form is a permanent part of the medical record Clarification of your documentation is requested to better reflect the severity of illness and intensity of treatment of your patient. Indicators present [] Documented diagnosis of decubitus/pressure ulcer Location in the medical record that reflects the above clinical findings: [] Treatment Provided: PHYSICIAN'S RESPONSE Based on your medical judgment can you define the stage of the decubitus/ pressure ulcer as: Present On Admission [] Stage 1 Pressure Ulcer: Specify Location: [] Yes [] No Intact Skin with non-blanching erhythema (reddened area on skin) Painful or Itchy When compared to adjacent tissue may be firmer/softer or warmer/cooler [] Stage 2 Pressure Ulcer: Specify Location: []Yes []No Partial thickness loss of dermis Abrasion, blister or shallow open crater Red/pink wound bed without slough [] Stage 3 Pressure Ulcer: Specify Location: []Yes [] No Full thickness skin loss (bone, tendon, muscle are not exposed) Damage or necrosis into subcutaneous soft tissues Slough present but does not obscure the depth of tissue loss Undermining and/or tunneling [] Stage 4 Pressure Ulcer: Specify Location: []Yes [] No Full thickness skin loss with exposed bone, tendon or muscle Slough Undermining and/or tunneling Extend into muscle and/or supporting structure (e.g. fascia, tendon, or joint capsule) [] Unstageable: Specify Location: [] []Yes [] No In responding to this query, please exercise your independent professional judgment. The fact that a question is asked does not imply that any particular answer is desired or expected. Thank you for your clarification on this documentation. If you have any questions please call. * Thank you, Naty Kemp RN ext. #[phone] MTDD
[2018-02-14 11:46] LABS: ABG ALLEN TEST YES; ARTERIAL BLOOD GAS HCO3 25.4 mmol/L (21-28); ARTERIAL BLOOD GAS HEMOGLOBIN 11.1 g/dL (11.7-17.4); ARTERIAL BLOOD GAS O2 CAPACITY 14.9 mL/dL (16-24); ARTERIAL BLOOD GAS O2 CONTENT 14.5 ML/dL (15-23); ARTERIAL BLOOD GAS O2 SAT 97.4 % (95-98); ARTERIAL BLOOD GAS PCO2 40 mm/Hg (35-45); ARTERIAL BLOOD GAS PH 7.41 (7.35-7.45); ARTERIAL BLOOD GAS PO2 65 mm/Hg (80-100); ARTERIAL BLOOD GAS TCO2 26.6 mmol/L (22-28)
--- NOTE | 2018-02-14 12:48 | CP.PCM.PN ---
Subjective - Date & Time of Evaluation Date of Evaluation: 02/14/18 Time of Evaluation: 11:40 - Subjective Subjective: F/U Respiratory Failure SOB on O2 N/C 3L , dry cough with difficulty to bring up flegm Objective - Vital Signs/Intake and Output Vital Signs (last 24 hours): Temp Pulse Resp BP Pulse Ox 97.5 F L 62 18 124/76 100 02/14/18 07:45 02/14/18 07:45 02/14/18 07:45 02/14/18 08:18 02/14/18 07:45 Intake and Output: 02/14/18 02/14/18 06:59 18:59 Intake Total 250 Output Total 275 Balance -25 - Medications Medications: Current Medications Acetaminophen (Tylenol 325mg Tab) 650 mg PO Q6 PRN PRN Reason: Pain, Mild (1-3) Last Admin: 02/11/18 21:55 Dose: 650 mg Albuterol/Ipratropium (Duoneb 3 Mg/0.5 Mg (3 Ml) Ud) 3 ml INH RQ4 [facility] Last Admin: 02/14/18 11:32 Dose: 3 ml Atorvastatin Calcium (Lipitor) 40 mg PO DAILY [facility] Last Admin: 02/09/18 09:32 Dose: 40 mg Carvedilol (Coreg) 12.5 mg PO Q12 [facility] Last Admin: 02/09/18 09:27 Dose: Not Given Clopidogrel Bisulfate (Plavix) 75 mg PO DAILY [facility] Last Admin: 02/09/18 09:33 Dose: 75 mg Dextrose (Dextrose 50% Inj) 0 ml IV STAT PRN; Protocol PRN Reason: Hypoglycemia Protocol Dextrose (Glutose 15) 0 gm PO ONCE PRN; Protocol PRN Reason: Hypoglycemia Protocol Furosemide (Lasix) 40 mg IVP DAILY [facility] Last Admin: 02/14/18 08:18 Dose: 40 mg Gabapentin (Neurontin) 300 mg PO DAILY [facility] Last Admin: 02/09/18 09:33 Dose: 300 mg Glucagon (Glucagen Diagnostic Kit) 0 mg IM STAT PRN; Protocol PRN Reason: Hypoglycemia Protocol Home Med (Icosapent Ethyl [Vascepa]) 1 gm PO DAILY [facility] Home Med (Linagliptin [Tradjenta]) 5 mg PO DAILY [facility] Home Med (Memantine Hcl [Namenda Xr]) 14 mg PO QPM [facility] Piperacillin Sod/Tazobactam (Sod 2.25 gm/ Sodium Chloride) 100 mls @ 100 mls/ hr IVPB Q6 [facility] PRN Reason: Protocol Last Admin: 02/14/18 09:03 Dose: 100 mls/hr Clindamycin Phosphate (Cleocin) 600 mg in 50 mls @ 50 mls/hr IVPB Q12 [facility] PRN Reason: Protocol Last Admin: 02/14/18 08:17 Dose: 50 mls/hr Ibuprofen (Motrin Tab) 400 mg PO Q6 PRN PRN Reason: Pain, moderate (4-7) Insulin Human Lispro (Humalog) 0 units SC ACHS [facility] PRN Reason: Protocol Last Admin: 02/14/18 11:29 Dose: 4 units Lactobacillus Acidophilus (Bacid Acidophilus) 1 cap PO BID [facility] Memantine (Namenda) 5 mg PO BID [facility] Last Admin: 02/14/18 08:19 Dose: 5 mg Methylprednisolone (Solu-Medrol) 30 mg IVP Q8 [facility] Last Admin: 02/14/18 08:18 Dose: 30 mg Metolazone (Zaroxolyn) 2.5 mg PO DAILY [facility] Last Admin: 02/09/18 09:35 Dose: 2.5 mg [id number]-7-[id number] Ethyl Esters (Lovaza) 1 gm PO DAILY [facility] Last Admin: 02/14/18 08:19 Dose: 1 gm Rivaroxaban (Xarelto) 15 mg PO DAILY [facility] PRN Reason: Protocol Last Admin: 02/14/18 08:18 Dose: 15 mg Sitagliptin Phosphate (Januvia) 25 mg PO DAILY [facility] Last Admin: 02/09/18 09:31 Dose: 25 mg Spironolactone (Aldactone) 50 mg PO DAILY [facility] Last Admin: 02/09/18 09:23 Dose: 50 mg Valsartan (Diovan) 160 mg PO DAILY [facility] Last Admin: 02/09/18 09:29 Dose: Not Given - Labs Labs: 02/14/18 05:45 02/14/18 05:45 - Constitutional Appears: Chronically Ill - Head Exam Head Exam: NORMAL INSPECTION - Eye Exam Eye Exam: PERRL - ENT Exam ENT Exam: Normal Exam - Neck Exam Neck Exam: Normal Inspection - Respiratory Exam Respiratory Exam: Decreased Breath Sounds, Rhonchi, Wheezes (mild) - Cardiovascular Exam Cardiovascular Exam: REGULAR RHYTHM - GI/Abdominal Exam GI & Abdominal Exam: Soft, Normal Bowel Sounds - Extremities Exam Extremities Exam: Pedal Edema - Back Exam Back Exam: NORMAL INSPECTION - Neurological Exam Neurological Exam: Awake Additional comments: Forgetful, obeys commands , no focal motor/sensory deficit - Psychiatric Exam Psychiatric exam: Normal Affect - Skin Skin Exam: Warm Assessment and Plan (1) Acute respiratory insufficiency Status: Acute (2) Pneumonia Status: Acute (3) COPD exacerbation Status: Acute (4) CHF (congestive heart failure) Status: Acute - Assessment and Plan (Free Text) Plan: continue Clinda , Zosyn , DuoNeb , Solu Medro , Lasix , f/u ECHO
--- NOTE | 2018-02-14 14:42 | CP.PCM.PN ---
Subjective - Date & Time of Evaluation Date of Evaluation: 02/14/18 Time of Evaluation: 11:45 - Subjective Subjective: Patient seen and examined this morning at bedside w/ Dr. Lawrence. There are no acute events overnight, NAD. Patient is speaking in full sentences but is less labored than yesterday. Patient reports breathing is improved and tolerating room air. Patient denies headaches, chest pain, SOB, abdominal pain, nausea, vomiting, diarrhea, dysuria, or fever. Objective - Vital Signs/Intake and Output Vital Signs (last 24 hours): Temp Pulse Resp BP Pulse Ox 97.5 F L 62 18 124/76 100 02/14/18 07:45 02/14/18 07:45 02/14/18 07:45 02/14/18 08:18 02/14/18 07:45 Intake and Output: 02/14/18 02/14/18 06:59 18:59 Intake Total 250 Output Total 275 Balance -25 - Medications Medications: Current Medications Acetaminophen (Tylenol 325mg Tab) 650 mg PO Q6 PRN PRN Reason: Pain, Mild (1-3) Last Admin: 02/11/18 21:55 Dose: 650 mg Albuterol/Ipratropium (Duoneb 3 Mg/0.5 Mg (3 Ml) Ud) 3 ml INH RQ4 [facility] Last Admin: 02/14/18 11:32 Dose: 3 ml Atorvastatin Calcium (Lipitor) 40 mg PO DAILY [facility] Last Admin: 02/09/18 09:32 Dose: 40 mg Carvedilol (Coreg) 12.5 mg PO Q12 [facility] Last Admin: 02/09/18 09:27 Dose: Not Given Clopidogrel Bisulfate (Plavix) 75 mg PO DAILY [facility] Last Admin: 02/09/18 09:33 Dose: 75 mg Dextrose (Dextrose 50% Inj) 0 ml IV STAT PRN; Protocol PRN Reason: Hypoglycemia Protocol Dextrose (Glutose 15) 0 gm PO ONCE PRN; Protocol PRN Reason: Hypoglycemia Protocol Furosemide (Lasix) 40 mg IVP DAILY [facility] Last Admin: 02/14/18 08:18 Dose: 40 mg Gabapentin (Neurontin) 300 mg PO DAILY [facility] Last Admin: 02/09/18 09:33 Dose: 300 mg Glucagon (Glucagen Diagnostic Kit) 0 mg IM STAT PRN; Protocol PRN Reason: Hypoglycemia Protocol Home Med (Icosapent Ethyl [Vascepa]) 1 gm PO DAILY [facility] Home Med (Linagliptin [Tradjenta]) 5 mg PO DAILY [facility] Home Med (Memantine Hcl [Namenda Xr]) 14 mg PO QPM [facility] Piperacillin Sod/Tazobactam (Sod 2.25 gm/ Sodium Chloride) 100 mls @ 100 mls/ hr IVPB Q6 [facility] PRN Reason: Protocol Last Admin: 02/14/18 09:03 Dose: 100 mls/hr Clindamycin Phosphate (Cleocin) 600 mg in 50 mls @ 50 mls/hr IVPB Q12 [facility] PRN Reason: Protocol Last Admin: 02/14/18 08:17 Dose: 50 mls/hr Ibuprofen (Motrin Tab) 400 mg PO Q6 PRN PRN Reason: Pain, moderate (4-7) Insulin Human Lispro (Humalog) 0 units SC ACHS [facility] PRN Reason: Protocol Last Admin: 02/14/18 11:29 Dose: 4 units Lactobacillus Acidophilus (Bacid Acidophilus) 1 cap PO BID [facility] Memantine (Namenda) 5 mg PO BID [facility] Last Admin: 02/14/18 08:19 Dose: 5 mg Methylprednisolone (Solu-Medrol) 20 mg IVP Q12 [facility] Metolazone (Zaroxolyn) 2.5 mg PO DAILY [facility] Last Admin: 02/09/18 09:35 Dose: 2.5 mg Widtc-2-Nlmn Ethyl Esters (Lovaza) 1 gm PO DAILY [facility] Last Admin: 02/14/18 08:19 Dose: 1 gm Rivaroxaban (Xarelto) 15 mg PO DAILY [facility] PRN Reason: Protocol Last Admin: 02/14/18 08:18 Dose: 15 mg Sitagliptin Phosphate (Januvia) 25 mg PO DAILY [facility] Last Admin: 02/09/18 09:31 Dose: 25 mg Spironolactone (Aldactone) 50 mg PO DAILY [facility] Last Admin: 02/09/18 09:23 Dose: 50 mg Valsartan (Diovan) 160 mg PO DAILY [facility] Last Admin: 02/09/18 09:29 Dose: Not Given - Labs Labs: 02/14/18 05:45 02/14/18 05:45 - Constitutional Appears: Non-toxic, No Acute Distress - Head Exam Head Exam: ATRAUMATIC, NORMAL INSPECTION, NORMOCEPHALIC - Eye Exam Eye Exam: Normal appearance - ENT Exam ENT Exam: Mucous Membranes Moist - Neck Exam Neck Exam: Full ROM. absent: Tenderness - Respiratory Exam Respiratory Exam: Decreased Breath Sounds, Wheezes (left sided). absent: Accessory Muscle Use, Rales, Rhonchi, Respiratory Distress - Cardiovascular Exam Cardiovascular Exam: REGULAR RHYTHM. absent: Tachycardia - GI/Abdominal Exam GI & Abdominal Exam: Soft, Normal Bowel Sounds. absent: Distended, Tenderness - Extremities Exam Extremities Exam: absent: Calf Tenderness - Neurological Exam Neurological Exam: Alert, Awake, Oriented x3 - Skin Skin Exam: Dry, Normal Color, Warm Assessment and Plan (1) Pneumonia Status: Acute (2) Acute on chronic heart failure Status: Chronic (3) COPD exacerbation Status: Acute (4) Sacral ulcer Status: Chronic (5) Coronary artery disease Status: Chronic (6) Osteoarthritis Status: Chronic (7) Atrial fibrillation Status: Chronic (8) HTN (hypertension) Status: Chronic (9) History of CVA (cerebrovascular accident) Status: Chronic (10) Pacemaker Status: Chronic (11) Fall Status: Acute - Assessment and Plan (Free Text) Plan: afebrile, non-tachycardic, normotensive Cardiology recommendations appreciated Pulmonology recommendations appreciated Infectious Disease recommendations appreciated podiatry consult ordered WBC 14.2 CXR: mild but increased bilateral pleural effusion clindamycin 600 mg IV Q12h day 6 zosyn 2.25 gm IV Q6h day 4 solu-medrol 30 mg IV Q8h duonebs INH Q6h [facility] lasix 40 mg IV daily f/u CBC, CMP, pro-BNP in AM prophylactic measures: DVT on xarelto 15 mg PO daily for afib monitor for acute changes sacral ulcer present on admission, agree w/ nursing and wound care assessment
[2018-02-14] MEDS: Lactobacillus Acidophilus 500 MU Cap PO SCH (16:10)
[2018-02-14] MEDS: Clindamycin 600mg/50ml NS 600 MG/50 ML BAG IVPB SCH (21:26)
[2018-02-15] MEDS: Albuterol-Ipratrop 3 mg / 0.5 (3 ml) UD INH SCH ×7 (00:11→23:42)
[2018-02-15 06:28] LABS: MEAN CELL VOLUME 91.8 fl (81.0-99.0); MEAN CORPUSCULAR HEMOGLOBIN 29.1 pg (27.0-31.0); MEAN CORPUSCULAR HGB CONC 31.7 g/dL (33.0-37.0); RBC 3.78 Mil/uL (3.80-5.20); RED CELL DISTRIBUTION WIDTH 19.5 % (11.5-14.5); WHITE BLOOD COUNT 21.2 K/uL (4.8-10.8)
[2018-02-15 06:38] LABS: CALCIUM 9.1 mg/dL (8.4-10.2)
[2018-02-15] MEDS: Omega-3-Acid Ethyl Esters 1 GM Cap PO SCH (08:48)
[2018-02-15] MEDS: Clindamycin 600mg/50ml NS 600 MG/50 ML BAG IVPB SCH ×2 (08:48→21:15)
[2018-02-15] MEDS: Insulin Lispro (humaLOG) 100 Units/ml Inj SC SCH ×4 (08:49→21:57)
[2018-02-15] MEDS: MethylPREDNISolone 40 mg Vial IVP SCH (08:49)
[2018-02-15] MEDS: Lactobacillus Acidophilus 500 MU Cap PO SCH ×2 (08:50→16:08)
--- NOTE | 2018-02-15 10:48 | CARD ---
APPROVED REPORT EXAM: Two-dimensional and M-mode echocardiogram with Doppler and color Doppler. Other Information Quality : AverageRhythm : Pacemaker INDICATION Dyspnea Congestive Heart Failure Surgery/Intervention Status/Post Mitral Valve Replacement: Pacemaker: 2D DIMENSIONS IVSd1.11 (0.7-1.1cm)LVDd4.47 (3.9-5.9cm) PWd1.06 (0.7-1.1cm)IVSs1.09 (0.8-1.2cm) LVDs3.03 (2.5-4.0cm)FS (%) 32.2 % PWs0.67 (0.8-1.2cm) M-Mode DIMENSIONS Left Atrium (MM)5.69 (2.5-4.0cm)IVSd0.89 (0.7-1.1cm) Aortic Root2.71 (2.2-3.7cm)LVDd4.63 (4.0-5.6cm) Aortic Cusp Exc.2.05 (1.5-2.0cm)PWd1.39 (0.7-1.1cm) IVSs1.46 cmFS (%) 44 % LVDs2.61 (2.0-3.8cm)PWs1.75 cm Mitral Valve E/A ratio0.0 TDI E/Lateral E'0.0E/Medial E'0.0 Tricuspid Valve TR Peak [id number] [id number] Peak Gr.43mmHg [id number] LEFT VENTRICLE The left ventricle is normal size. There is normal left ventricular wall thickness. The left ventricular function is normal. The left ventricular ejection fraction is 60% There is normal LV segmental wall motion. The left ventricular diastolic function is normal. No left ventricle thrombus noted on this study. There is no ventricular septal defect visualized. There is no left ventricular aneurysm. There is no mass noted in the left ventricle. RIGHT VENTRICLE The right ventricle is normal size. There is normal right ventricular wall thickness. The right ventricular systolic function is normal. ATRIA The left atrium is severely dilated. The right atrium size is normal. The interatrial septum is intact with no evidence for an atrial septal defect. AORTIC VALVE The aortic valve is normal in structure. No aortic regurgitation is present. There is no aortic valvular stenosis. There is no aortic valvular vegetation. MITRAL VALVE The mitral valve is normal in structure. There is no evidence of mitral valve prolapse. There is no mitral valve stenosis. There is no mitral valve regurgitation noted. The mitral prosthesis appears intact with no perivavular leakage or instability TRICUSPID VALVE The tricuspid valve is normal in structure. There is moderate tricuspid regurgitation. Right ventricular systolic pressure is estimated at 40-50 mmHg. There is no tricuspid valve prolapse or vegetation. There is no tricuspid valve stenosis. PULMONIC VALVE The pulmonary valve is normal in structure. There is no pulmonic valvular regurgitation. There is no pulmonic valvular stenosis. GREAT VESSELS The aortic root is normal in size. The ascending aorta is normal in size. The IVC is normal in size and collapses >50% with inspiration. PERICARDIAL EFFUSION The pericardium appears normal. There is no pleural effusion. <Conclusion> Normal LV systolic function Normal Mitral Valve Prosthetic Function
--- NOTE | 2018-02-15 11:03 | CARD ---
APPROVED REPORT EKG Measurement Heart [id number] <Conclusion> Ventricular-paced rhythm Abnormal ECG
--- NOTE | 2018-02-15 12:14 | PQF GENQUE ---
Dr. Burrows, 2 queries: Please provide specificity regarding respiratory failure: 1. Please specify acuity: Acute Chronic Acute on chronic Other (please specify) Clinically unable to determine Unknown 2. Please specify type: With hypercapnia With hypoxia With hypercapnia and hypoxia Other (please specify) Clinically unable to determine Unknown 3. Please specify underlying cause: Due to procedure Due to trauma Due to underlying respiratory disease (please specify) Other cause (please specify) Clinically unable to determine Unknown 02/13 DATA MINER note: General: In acute distress 2/2 dyspnea; RT intervention: - DUONEB x1; CXR; BIPAP, -med: Lasix: 20 mg IV once -Of note: last Duoneb treatment was 4 hours prior. -2 minutes after starting BIPAP, pt had decreased labored breathing. Saturating well at 99%. 02/14 Pulmonary consult: Subjective: F/U Respiratory Failure SOB on O2 N/C 3L , dry cough with difficulty to bring up flegm This form is a permanent part of the medical record Clarification of your documentation is requested to better reflect the severity of illness and intensity of treatment of your patient. Indicators present [] Specify: [] [] Specify: [] [] Specify: [] [] Specify: [] Location in the medical record that reflects the above clinical findings: [] Treatment Provided: [] PHYSICIAN'S RESPONSE Based on your medical judgment of the clinical indicators outlined above please clarify the following: [] Practitioner response [] If unable to determine, please check the box, sign and date. Present On Admission (POA) Indicator: [] Present at the time of admission [] Not present at the time of admission [] Clinically Undetermined In responding to this query, please exercise your independent professional judgment. The fact that a question is asked does not imply that any particular answer is desired or expected. Thank you for your clarification on this documentation. If you have any questions please call. * Thank you, Naty Kemp RN ext. #[phone] MTDD
--- NOTE | 2018-02-15 13:23 | CP.PCM.PN ---
Subjective - Date & Time of Evaluation Date of Evaluation: 02/15/18 Time of Evaluation: 13:23 - Subjective Subjective: pt co sob. no cp. echo reviewed. MV prosthetic gradient is 10mmhg mean. abg shows A-a gradient. Objective - Vital Signs/Intake and Output Vital Signs (last 24 hours): Temp Pulse Resp BP Pulse Ox 97.2 F L 60 20 129/76 100 02/15/18 08:00 02/15/18 08:00 02/15/18 08:00 02/15/18 08:48 02/15/18 08:00 - Medications Medications: Current Medications Acetaminophen (Tylenol 325mg Tab) 650 mg PO Q6 PRN PRN Reason: Pain, Mild (1-3) Last Admin: 02/11/18 21:55 Dose: 650 mg Albuterol/Ipratropium (Duoneb 3 Mg/0.5 Mg (3 Ml) Ud) 3 ml INH RQ4 [facility] Last Admin: 02/15/18 11:32 Dose: 3 ml Atorvastatin Calcium (Lipitor) 40 mg PO DAILY [facility] Carvedilol (Coreg) 12.5 mg PO Q12 [facility] Last Admin: 02/09/18 09:27 Dose: Not Given Clopidogrel Bisulfate (Plavix) 75 mg PO DAILY [facility] Last Admin: 02/15/18 12:01 Dose: 75 mg Dextrose (Dextrose 50% Inj) 0 ml IV STAT PRN; Protocol PRN Reason: Hypoglycemia Protocol Dextrose (Glutose 15) 0 gm PO ONCE PRN; Protocol PRN Reason: Hypoglycemia Protocol Furosemide (Lasix) 40 mg IVP BID [facility] Last Admin: 02/15/18 11:57 Dose: Not Given Gabapentin (Neurontin) 300 mg PO DAILY [facility] Last Admin: 02/09/18 09:33 Dose: 300 mg Glucagon (Glucagen Diagnostic Kit) 0 mg IM STAT PRN; Protocol PRN Reason: Hypoglycemia Protocol Home Med (Icosapent Ethyl [Vascepa]) 1 gm PO DAILY [facility] Home Med (Linagliptin [Tradjenta]) 5 mg PO DAILY [facility] Home Med (Memantine Hcl [Namenda Xr]) 14 mg PO QPM [facility] Piperacillin Sod/Tazobactam (Sod 2.25 gm/ Sodium Chloride) 100 mls @ 100 mls/ hr IVPB Q6 [facility] PRN Reason: Protocol Last Admin: 02/15/18 09:02 Dose: 100 mls/hr Clindamycin Phosphate (Cleocin In Normal Saline) 600 mg in 50 mls @ 50 mls/hr IVPB Q12 [facility] PRN Reason: Protocol Last Admin: 02/15/18 08:48 Dose: 50 mls/hr Ibuprofen (Motrin Tab) 400 mg PO Q6 PRN PRN Reason: Pain, moderate (4-7) Insulin Human Lispro (Humalog) 0 units SC ACHS [facility] PRN Reason: Protocol Last Admin: 02/15/18 11:58 Dose: 4 units Lactobacillus Acidophilus (Bacid Acidophilus) 1 cap PO BID [facility] Last Admin: 02/15/18 08:50 Dose: 1 cap Losartan Potassium (Cozaar) 25 mg PO DAILY [facility] Memantine (Namenda) 5 mg PO BID [facility] Last Admin: 02/15/18 08:50 Dose: 5 mg Metformin HCl (Glucophage) 500 mg PO BIDWM [facility] Methylprednisolone (Solu-Medrol) 20 mg IVP DAILY [facility] Metolazone (Zaroxolyn) 2.5 mg PO DAILY [facility] Last Admin: 02/09/18 09:35 Dose: 2.5 mg [id number]-[id number] Ethyl Esters (Lovaza) 1 gm PO DAILY [facility] Last Admin: 02/15/18 08:48 Dose: 1 gm Rivaroxaban (Xarelto) 15 mg PO DAILY [facility] PRN Reason: Protocol Last Admin: 02/15/18 08:50 Dose: 15 mg Sitagliptin Phosphate (Januvia) 50 mg PO DAILY [facility] Spironolactone (Aldactone) 50 mg PO DAILY [facility] Last Admin: 02/09/18 09:23 Dose: 50 mg Valsartan (Diovan) 160 mg PO DAILY [facility] Last Admin: 02/09/18 09:29 Dose: Not Given - Labs Labs: 02/15/18 06:10 02/15/18 06:10 Assessment and Plan (1) Acute on chronic heart failure Status: Chronic (2) Cardiomyopathy Status: Acute (3) Pneumonia Status: Acute (4) Bronchitis Status: Acute (5) Atrial fibrillation Status: Chronic (6) Pacemaker Status: Chronic - Assessment and Plan (Free Text) Plan: given A-a gradient, recommend ruling out PE. CTA and dopplers ordered. gfr is 39. would cease diuretics as bun/cr are increasing steadily. monitor lytes. consider pulm toilet. given MV gradient, if pt does not have a PE, she should have [facility]ma on sunday to eval MV. pt is tenatively scheduled for 11am sunday at [facility].
--- NOTE | 2018-02-15 13:49 | CP.PCM.PN ---
Subjective - Date & Time of Evaluation Date of Evaluation: 02/15/18 Time of Evaluation: 11:05 - Subjective Subjective: Patient seen and examined this morning at bedside w/ Dr. Lawrence. There are no acute events overnight, NAD. Patient is speaking in full sentences but is less labored than yesterday. Patient reports breathing is improved. Patient denies headaches, chest pain, SOB, abdominal pain, nausea, vomiting, diarrhea, dysuria , or fever. Objective - Vital Signs/Intake and Output Vital Signs (last 24 hours): Temp Pulse Resp BP Pulse Ox 97.2 F L 60 20 129/76 100 02/15/18 08:00 02/15/18 08:00 02/15/18 08:00 02/15/18 08:48 02/15/18 08:00 - Medications Medications: Current Medications Acetaminophen (Tylenol 325mg Tab) 650 mg PO Q6 PRN PRN Reason: Pain, Mild (1-3) Last Admin: 02/11/18 21:55 Dose: 650 mg Albuterol/Ipratropium (Duoneb 3 Mg/0.5 Mg (3 Ml) Ud) 3 ml INH RQ4 [facility] Last Admin: 02/15/18 11:32 Dose: 3 ml Atorvastatin Calcium (Lipitor) 40 mg PO DAILY [facility] Carvedilol (Coreg) 12.5 mg PO Q12 [facility] Last Admin: 02/09/18 09:27 Dose: Not Given Clopidogrel Bisulfate (Plavix) 75 mg PO DAILY [facility] Last Admin: 02/15/18 12:01 Dose: 75 mg Dextrose (Dextrose 50% Inj) 0 ml IV STAT PRN; Protocol PRN Reason: Hypoglycemia Protocol Dextrose (Glutose 15) 0 gm PO ONCE PRN; Protocol PRN Reason: Hypoglycemia Protocol Furosemide (Lasix) 40 mg IVP BID [facility] Last Admin: 02/15/18 11:57 Dose: Not Given Gabapentin (Neurontin) 300 mg PO DAILY [facility] Last Admin: 02/09/18 09:33 Dose: 300 mg Glucagon (Glucagen Diagnostic Kit) 0 mg IM STAT PRN; Protocol PRN Reason: Hypoglycemia Protocol Home Med (Icosapent Ethyl [Vascepa]) 1 gm PO DAILY [facility] Home Med (Linagliptin [Tradjenta]) 5 mg PO DAILY [facility] Home Med (Memantine Hcl [Namenda Xr]) 14 mg PO QPM [facility] Piperacillin Sod/Tazobactam (Sod 2.25 gm/ Sodium Chloride) 100 mls @ 100 mls/ hr IVPB Q6 [facility] PRN Reason: Protocol Last Admin: 02/15/18 09:02 Dose: 100 mls/hr Clindamycin Phosphate (Cleocin In Normal Saline) 600 mg in 50 mls @ 50 mls/hr IVPB Q12 [facility] PRN Reason: Protocol Last Admin: 02/15/18 08:48 Dose: 50 mls/hr Ibuprofen (Motrin Tab) 400 mg PO Q6 PRN PRN Reason: Pain, moderate (4-7) Insulin Human Lispro (Humalog) 0 units SC ACHS [facility] PRN Reason: Protocol Last Admin: 02/15/18 11:58 Dose: 4 units Lactobacillus Acidophilus (Bacid Acidophilus) 1 cap PO BID [facility] Last Admin: 02/15/18 08:50 Dose: 1 cap Losartan Potassium (Cozaar) 25 mg PO DAILY [facility] Memantine (Namenda) 5 mg PO BID [facility] Last Admin: 02/15/18 08:50 Dose: 5 mg Metformin HCl (Glucophage) 500 mg PO BIDWM [facility] Methylprednisolone (Solu-Medrol) 20 mg IVP DAILY [facility] Metolazone (Zaroxolyn) 2.5 mg PO DAILY [facility] Last Admin: 02/09/18 09:35 Dose: 2.5 mg Rxibm-[id number] Ethyl Esters (Lovaza) 1 gm PO DAILY [facility] Last Admin: 02/15/18 08:48 Dose: 1 gm Rivaroxaban (Xarelto) 15 mg PO DAILY [facility] PRN Reason: Protocol Last Admin: 02/15/18 08:50 Dose: 15 mg Sitagliptin Phosphate (Januvia) 50 mg PO DAILY [facility] Spironolactone (Aldactone) 50 mg PO DAILY [facility] Last Admin: 02/09/18 09:23 Dose: 50 mg Valsartan (Diovan) 160 mg PO DAILY [facility] Last Admin: 02/09/18 09:29 Dose: Not Given - Labs Labs: 02/15/18 06:10 02/15/18 06:10 - Constitutional Appears: Non-toxic, No Acute Distress - Head Exam Head Exam: ATRAUMATIC, NORMAL INSPECTION, NORMOCEPHALIC - Eye Exam Eye Exam: Normal appearance - ENT Exam ENT Exam: Mucous Membranes Moist - Neck Exam Neck Exam: Full ROM. absent: Tenderness - Respiratory Exam Respiratory Exam: Decreased Breath Sounds, Rhonchi, Wheezes (mild left sided). absent: Accessory Muscle Use, Rales, Respiratory Distress - Cardiovascular Exam Cardiovascular Exam: REGULAR RHYTHM. absent: Tachycardia - GI/Abdominal Exam GI & Abdominal Exam: Soft, Normal Bowel Sounds. absent: Distended, Tenderness - Extremities Exam Extremities Exam: absent: Calf Tenderness - Neurological Exam Neurological Exam: Alert, Awake, Oriented x3 - Skin Skin Exam: Dry, Normal Color, Warm Assessment and Plan (1) Pneumonia Status: Acute (2) Acute on chronic heart failure Status: Chronic (3) COPD exacerbation Status: Acute (4) Sacral ulcer Status: Chronic (5) Coronary artery disease Status: Chronic (6) Osteoarthritis Status: Chronic (7) Atrial fibrillation Status: Chronic (8) HTN (hypertension) Status: Chronic (9) History of CVA (cerebrovascular accident) Status: Chronic (10) Pacemaker Status: Chronic (11) Fall Status: Acute - Assessment and Plan (Free Text) Plan: c/w present management acute respiratory failure w/o hypercapnia most likely due to acute on chronic diastolic CHF afebrile, non-tachycardic, normotensive Cardiology recommendations appreciated Pulmonology recommendations appreciated Infectious Disease recommendations appreciated podiatry consult ordered CXR: mild but increased bilateral pleural effusion clindamycin 600 mg IV Q12h day 7 zosyn 2.25 gm IV Q6h day 5 solu-medrol 20 mg IV daily duonebs INH Q6h [facility] lasix 40 mg IV BID prophylactic measures: DVT on xarelto 15 mg PO daily for afib monitor for acute changes
--- NOTE | 2018-02-15 14:17 | CP.PCM.PN ---
Subjective - Date & Time of Evaluation Date of Evaluation: 02/15/18 - Subjective Subjective: F/U Respiratory insufficiency. feeling better today , intermitent SOB with O2 NC , dry cough Objective - Vital Signs/Intake and Output Vital Signs (last 24 hours): Temp Pulse Resp BP Pulse Ox 97.2 F L 60 20 129/76 99 02/15/18 08:00 02/15/18 10:35 02/15/18 08:00 02/15/18 08:48 02/15/18 10:35 - Medications Medications: Current Medications Acetaminophen (Tylenol 325mg Tab) 650 mg PO Q6 PRN PRN Reason: Pain, Mild (1-3) Last Admin: 02/11/18 21:55 Dose: 650 mg Albuterol/Ipratropium (Duoneb 3 Mg/0.5 Mg (3 Ml) Ud) 3 ml INH RQ4 [facility] Last Admin: 02/15/18 11:32 Dose: 3 ml Atorvastatin Calcium (Lipitor) 40 mg PO DAILY [facility] Carvedilol (Coreg) 12.5 mg PO Q12 [facility] Last Admin: 02/09/18 09:27 Dose: Not Given Clopidogrel Bisulfate (Plavix) 75 mg PO DAILY [facility] Last Admin: 02/15/18 12:01 Dose: 75 mg Dextrose (Dextrose 50% Inj) 0 ml IV STAT PRN; Protocol PRN Reason: Hypoglycemia Protocol Dextrose (Glutose 15) 0 gm PO ONCE PRN; Protocol PRN Reason: Hypoglycemia Protocol Furosemide (Lasix) 40 mg IVP BID [facility] Last Admin: 02/15/18 11:57 Dose: Not Given Gabapentin (Neurontin) 300 mg PO DAILY [facility] Last Admin: 02/09/18 09:33 Dose: 300 mg Glucagon (Glucagen Diagnostic Kit) 0 mg IM STAT PRN; Protocol PRN Reason: Hypoglycemia Protocol Home Med (Icosapent Ethyl [Vascepa]) 1 gm PO DAILY [facility] Home Med (Linagliptin [Tradjenta]) 5 mg PO DAILY [facility] Home Med (Memantine Hcl [Namenda Xr]) 14 mg PO QPM [facility] Piperacillin Sod/Tazobactam (Sod 2.25 gm/ Sodium Chloride) 100 mls @ 100 mls/ hr IVPB Q6 [facility] PRN Reason: Protocol Last Admin: 02/15/18 09:02 Dose: 100 mls/hr Clindamycin Phosphate (Cleocin In Normal Saline) 600 mg in 50 mls @ 50 mls/hr IVPB Q12 [facility] PRN Reason: Protocol Last Admin: 02/15/18 08:48 Dose: 50 mls/hr Ibuprofen (Motrin Tab) 400 mg PO Q6 PRN PRN Reason: Pain, moderate (4-7) Insulin Human Lispro (Humalog) 0 units SC ACHS [facility] PRN Reason: Protocol Last Admin: 02/15/18 11:58 Dose: 4 units Lactobacillus Acidophilus (Bacid Acidophilus) 1 cap PO BID [facility] Last Admin: 02/15/18 08:50 Dose: 1 cap Losartan Potassium (Cozaar) 25 mg PO DAILY [facility] Memantine (Namenda) 5 mg PO BID [facility] Last Admin: 02/15/18 08:50 Dose: 5 mg Metformin HCl (Glucophage) 500 mg PO BIDWM [facility] Methylprednisolone (Solu-Medrol) 20 mg IVP DAILY [facility] Metolazone (Zaroxolyn) 2.5 mg PO DAILY [facility] Last Admin: 02/09/18 09:35 Dose: 2.5 mg Klrvd-9-[id number] Ethyl Esters (Lovaza) 1 gm PO DAILY [facility] Last Admin: 02/15/18 08:48 Dose: 1 gm Rivaroxaban (Xarelto) 15 mg PO DAILY [facility] PRN Reason: Protocol Last Admin: 02/15/18 08:50 Dose: 15 mg Sitagliptin Phosphate (Januvia) 50 mg PO DAILY [facility] Spironolactone (Aldactone) 50 mg PO DAILY [facility] Last Admin: 02/09/18 09:23 Dose: 50 mg Valsartan (Diovan) 160 mg PO DAILY [facility] Last Admin: 02/09/18 09:29 Dose: Not Given - Labs Labs: 02/15/18 06:10 02/15/18 06:10 - Constitutional Appears: No Acute Distress, Chronically Ill - Head Exam Head Exam: NORMAL INSPECTION - Eye Exam Eye Exam: PERRL - ENT Exam ENT Exam: Normal Exam - Neck Exam Neck Exam: Normal Inspection - Respiratory Exam Respiratory Exam: Decreased Breath Sounds (at bases) - Cardiovascular Exam Cardiovascular Exam: REGULAR RHYTHM, Murmur (systolic 3/6 apex radiated to axilla) Additional comments: PPM - GI/Abdominal Exam GI & Abdominal Exam: Soft, Normal Bowel Sounds Additional comments: Peg tube - Extremities Exam Additional comments: BLE contracted, stiff - Back Exam Additional comments: MASD with erosion to sacrum - Neurological Exam Neurological Exam: Alert, Motor Sensory Deficit Additional comments: Expressive aphasia, unable to follows commands. - Skin Skin Exam: Warm Assessment and Plan (1) Acute respiratory insufficiency Status: Acute (2) Pneumonia Status: Acute (3) COPD exacerbation Status: Acute (4) CHF (congestive heart failure) Status: Acute - Assessment and Plan (Free Text) Plan: continue Clinda , Zosyn , Solu Medrol , DuoNeb , Lasix ,Solu Medrol an rest of treatment, slow improvement
[2018-02-15] MEDS ORDERED: Sodium Chloride 0.9% 50 ML IV ONE (18:30)
[2018-02-15] MEDS ORDERED: Iodixanol 320 MG/ML 100 ML BOTTLE IV ONE (18:30)
[2018-02-16] MEDS: Albuterol-Ipratrop 3 mg / 0.5 (3 ml) UD INH SCH ×5 (03:30→18:59)
--- NOTE | 2018-02-16 08:23 | CT ---
PROCEDURE: CT Chest with contrast (Pulmonary Angiogram) HISTORY: PE COMPARISON: CT chest dated 02/11/2018. TECHNIQUE: Axial computed tomography images were obtained of the chest in the pulmonary arterial phase of enhancement. Coronal and sagittal reformatted images were created and reviewed. Intravenous contrast dose: 80 mL Visipaque 320 Radiation dose: Total exam DLP = 401.3 mGy-cm. This CT exam was performed using one or more of the following dose reduction techniques: Automated exposure control, adjustment of the mA and/or kV according to patient size, and/or use of iterative reconstruction technique. FINDINGS: PULMONARY ARTERIES: Unremarkable. No pulmonary embolism. AORTA: No acute findings. No thoracic aortic aneurysm. Calcific atherosclerosis. LUNGS: Decreased pulmonary vascular congestion. Multiple ground-glass and/or tree-in-bud opacities in the bilateral upper lobes. 4 mm nodule in the peripheral right middle lobe (series 3, image 70). No mass or pulmonary consolidation. Secretions in the lateral right trachea (series 3, images 25 - 37). Left lower lobe subsegmental atelectasis. PLEURAL SPACES: Increase in size of small to moderate right pleural effusion with subjacent atelectasis. Stable trace left pleural effusion. No pneumothorax. HEART: Cardiomegaly. Coronary arterial and valvular calcifications. No significant pericardial effusion. Left subclavian access implanted cardiac device with leads terminating in the right atrium and right ventricle. Prior mitral valve. Prior CABG. Reflux of contrast into the hepatic veins likely representing right heart dysfunction. LYMPH NODES: Multiple prominent mediastinal lymph nodes, grossly unchanged. BONES, CHEST WALL: Sclerotic focus in the right anterolateral 6th rib. Multilevel chronic compression fractures redemonstrated. No destructive lesion. OTHER FINDINGS: Unremarkable. IMPRESSION: Unremarkable CT pulmonary angiogram. No pulmonary embolus. Multiple ground-glass and tree-in-bud opacities in the bilateral upper lobes, likely infectious/inflammatory in etiology. Increase in size of small to moderate right pleural effusion. Stable trace left pleural effusion. Secretions of the lateral right trachea.
--- NOTE | 2018-02-16 08:41 | US ---
PROCEDURE: Bilateral lower extremity venous duplex Doppler. HISTORY: SOB COMPARISON: Lower extremity venous ultrasound dated 06/17/2017. TECHNIQUE: Bilateral common femoral, superficial femoral, popliteal and posterior tibial veins were evaluated. Flow was assessed with color Doppler, compressibility, assessment of phasic flow and augmentation response. FINDINGS: COMMON FEMORAL VEIN: Right CFV: Unremarkable. Left CFV: Unremarkable. SUPERFICIAL FEMORAL VEIN: Right SFV: Unremarkable. Left SFV: Unremarkable. POPLITEAL VEIN: Right Popliteal: Unremarkable. Left Popliteal: Unremarkable. POSTERIOR TIBIAL VEIN: Right PTV: Unremarkable. Left PTV: Unremarkable. OTHER FINDINGS: None. IMPRESSION: No evidence of deep venous thrombosis.
[2018-02-16] MEDS ORDERED: MethylPREDNISolone 40 mg Vial IVP SCH (09:00)
[2018-02-16] MEDS: Insulin Lispro (humaLOG) 100 Units/ml Inj SC SCH ×4 (09:32→22:30)
[2018-02-16] MEDS: Omega-3-Acid Ethyl Esters 1 GM Cap PO SCH (09:33)
[2018-02-16] MEDS: Lactobacillus Acidophilus 500 MU Cap PO SCH ×2 (09:36→16:37)
[2018-02-16] MEDS: Clindamycin 600mg/50ml NS 600 MG/50 ML BAG IVPB SCH ×2 (11:00→20:50)
[2018-02-16 12:06] LABS: BASO # 0.1 K/uL (0.0-0.2); BASO % 0.4 % (0.0-2.0); EOS % 0.1 % (0.0-4.0); HEMOGLOBIN 11.6 g/dL (12.0-16.0); LYMPH % 3.9 % (20.0-40.0); MEAN CORPUSCULAR HEMOGLOBIN 29.3 pg (27.0-31.0); MEAN CORPUSCULAR HGB CONC 31.9 g/dL (33.0-37.0); MEAN PLATELET VOLUME 10.8 fl (7.2-11.7); MONO # 0.5 K/uL (0.0-0.8); MONO % 1.8 % (0.0-10.0); NEUT # 24.9 K/uL (1.8-7.0); NEUT % 93.8 % (50.0-75.0); NRBC % 0.2 % (0.0-0.0); PLATELET COUNT 230 K/uL (130-400); RBC 3.96 Mil/uL (3.80-5.20); RED CELL DISTRIBUTION WIDTH 18.8 % (11.5-14.5); WHITE BLOOD COUNT 26.6 K/uL (4.8-10.8)
[2018-02-16 12:19] LABS: ALBUMIN 3.1 g/dL (3.5-5.0); CALCIUM 9.8 mg/dL (8.4-10.2)
[2018-02-16 13:33] LABS: ANISOCYTOSIS SLIGHT; LARGE PLATELETS PRESENT; LYMPHOCYTE 6 % (20-50); MONOCYTE 2 % (0-10); NEUTROPHIL 92 % (42-75); OVALOCYTES SLIGHT; PLATELET ESTIMATE NORMAL (NORMAL); POIKILOCYTOSIS SLIGHT; TOTAL CELLS COUNTED 100
--- NOTE | 2018-02-16 14:15 | CP.PCM.PN ---
Objective - Vital Signs/Intake and Output Vital Signs (last 24 hours): Temp Pulse Resp BP Pulse Ox 97.3 F L 61 20 134/75 99 02/16/18 08:25 02/16/18 09:31 02/16/18 08:25 02/16/18 09:33 02/16/18 08:25 - Medications Medications: Current Medications Acetaminophen (Tylenol 325mg Tab) 650 mg PO Q6 PRN PRN Reason: Pain, Mild (1-3) Last Admin: 02/11/18 21:55 Dose: 650 mg Albuterol/Ipratropium (Duoneb 3 Mg/0.5 Mg (3 Ml) Ud) 3 ml INH RQ4 [facility] Last Admin: 02/16/18 12:13 Dose: 3 ml Atorvastatin Calcium (Lipitor) 40 mg PO DAILY [facility] Last Admin: 02/16/18 09:33 Dose: 40 mg Carvedilol (Coreg) 12.5 mg PO Q12 [facility] Last Admin: 02/09/18 09:27 Dose: Not Given Clopidogrel Bisulfate (Plavix) 75 mg PO DAILY [facility] Last Admin: 02/16/18 09:34 Dose: 75 mg Dextrose (Dextrose 50% Inj) 0 ml IV STAT PRN; Protocol PRN Reason: Hypoglycemia Protocol Dextrose (Glutose 15) 0 gm PO ONCE PRN; Protocol PRN Reason: Hypoglycemia Protocol Furosemide (Lasix) 40 mg IVP BID [facility] Last Admin: 02/16/18 09:33 Dose: 40 mg Gabapentin (Neurontin) 300 mg PO DAILY [facility] Last Admin: 02/09/18 09:33 Dose: 300 mg Glucagon (Glucagen Diagnostic Kit) 0 mg IM STAT PRN; Protocol PRN Reason: Hypoglycemia Protocol Home Med (Icosapent Ethyl [Vascepa]) 1 gm PO DAILY [facility] Home Med (Linagliptin [Tradjenta]) 5 mg PO DAILY [facility] Home Med (Memantine Hcl [Namenda Xr]) 14 mg PO QPM [facility] Piperacillin Sod/Tazobactam (Sod 2.25 gm/ Sodium Chloride) 100 mls @ 100 mls/ hr IVPB Q6 [facility] PRN Reason: Protocol Last Admin: 02/16/18 09:30 Dose: 100 mls/hr Clindamycin Phosphate (Cleocin In Normal Saline) 600 mg in 50 mls @ 50 mls/hr IVPB Q12 [facility] PRN Reason: Protocol Last Admin: 02/16/18 11:00 Dose: 50 mls/hr Ibuprofen (Motrin Tab) 400 mg PO Q6 PRN PRN Reason: Pain, moderate (4-7) Insulin Human Lispro (Humalog) 0 units SC ACHS [facility] PRN Reason: Protocol Last Admin: 02/16/18 12:00 Dose: Not Given Lactobacillus Acidophilus (Bacid Acidophilus) 1 cap PO BID [facility] Last Admin: 02/16/18 09:36 Dose: 1 cap Losartan Potassium (Cozaar) 25 mg PO DAILY [facility] Last Admin: 02/16/18 09:31 Dose: 25 mg Memantine (Namenda) 5 mg PO BID [facility] Last Admin: 02/16/18 09:33 Dose: 5 mg Metformin HCl (Glucophage) 500 mg PO BIDWM [facility] Last Admin: 02/16/18 09:31 Dose: 500 mg Methylprednisolone (Solu-Medrol) 20 mg IVP BID [facility] Metolazone (Zaroxolyn) 2.5 mg PO DAILY [facility] Last Admin: 02/09/18 09:35 Dose: 2.5 mg [id number]-2-[id number] Ethyl Esters (Lovaza) 1 gm PO DAILY [facility] Last Admin: 02/16/18 09:33 Dose: 1 gm Rivaroxaban (Xarelto) 15 mg PO DAILY [facility] PRN Reason: Protocol Last Admin: 02/16/18 09:34 Dose: 15 mg Sitagliptin Phosphate (Januvia) 50 mg PO DAILY [facility] Last Admin: 02/16/18 09:32 Dose: 50 mg Spironolactone (Aldactone) 50 mg PO DAILY [facility] Last Admin: 02/09/18 09:23 Dose: 50 mg Valsartan (Diovan) 160 mg PO DAILY [facility] Last Admin: 02/09/18 09:29 Dose: Not Given - Labs Labs: 02/16/18 11:37 02/16/18 11:37 Assessment and Plan (1) Acute on chronic heart failure Status: Chronic (2) Cardiomyopathy Status: Acute (3) Pneumonia Status: Acute (4) Bronchitis Status: Acute (5) Atrial fibrillation Status: Chronic (6) Pacemaker Status: Chronic
--- NOTE | 2018-02-16 15:29 | CP.PCM.PN ---
Subjective - Date & Time of Evaluation Date of Evaluation: 02/16/18 Time of Evaluation: 13:40 - Subjective Subjective: F/U Respiratory Insufficiency. SOB intermittent with O2 , cough with scanty amount of flegm Objective - Vital Signs/Intake and Output Vital Signs (last 24 hours): Temp Pulse Resp BP Pulse Ox 97.3 F L 61 20 134/75 99 02/16/18 08:25 02/16/18 09:31 02/16/18 08:25 02/16/18 09:33 02/16/18 08:25 - Medications Medications: Current Medications Acetaminophen (Tylenol 325mg Tab) 650 mg PO Q6 PRN PRN Reason: Pain, Mild (1-3) Last Admin: 02/11/18 21:55 Dose: 650 mg Albuterol/Ipratropium (Duoneb 3 Mg/0.5 Mg (3 Ml) Ud) 3 ml INH RQ4 [facility] Last Admin: 02/16/18 15:25 Dose: 3 ml Amlodipine Besylate (Norvasc) 2.5 mg PO Q12 [facility] Atorvastatin Calcium (Lipitor) 40 mg PO DAILY [facility] Last Admin: 02/16/18 09:33 Dose: 40 mg Carvedilol (Coreg) 12.5 mg PO Q12 [facility] Last Admin: 02/09/18 09:27 Dose: Not Given Clopidogrel Bisulfate (Plavix) 75 mg PO DAILY [facility] Last Admin: 02/16/18 09:34 Dose: 75 mg Dextrose (Dextrose 50% Inj) 0 ml IV STAT PRN; Protocol PRN Reason: Hypoglycemia Protocol Dextrose (Glutose 15) 0 gm PO ONCE PRN; Protocol PRN Reason: Hypoglycemia Protocol Gabapentin (Neurontin) 300 mg PO DAILY [facility] Last Admin: 02/09/18 09:33 Dose: 300 mg Glucagon (Glucagen Diagnostic Kit) 0 mg IM STAT PRN; Protocol PRN Reason: Hypoglycemia Protocol Home Med (Icosapent Ethyl [Vascepa]) 1 gm PO DAILY [facility] Home Med (Linagliptin [Tradjenta]) 5 mg PO DAILY [facility] Home Med (Memantine Hcl [Namenda Xr]) 14 mg PO QPM [facility] Piperacillin Sod/Tazobactam (Sod 2.25 gm/ Sodium Chloride) 100 mls @ 100 mls/ hr IVPB Q6 [facility] PRN Reason: Protocol Last Admin: 02/16/18 09:30 Dose: 100 mls/hr Clindamycin Phosphate (Cleocin In Normal Saline) 600 mg in 50 mls @ 50 mls/hr IVPB Q12 [facility] PRN Reason: Protocol Last Admin: 02/16/18 11:00 Dose: 50 mls/hr Ibuprofen (Motrin Tab) 400 mg PO Q6 PRN PRN Reason: Pain, moderate (4-7) Insulin Human Lispro (Humalog) 0 units SC ACHS [facility] PRN Reason: Protocol Last Admin: 02/16/18 12:00 Dose: Not Given Lactobacillus Acidophilus (Bacid Acidophilus) 1 cap PO BID [facility] Last Admin: 02/16/18 09:36 Dose: 1 cap Losartan Potassium (Cozaar) 25 mg PO DAILY [facility] Last Admin: 02/16/18 09:31 Dose: 25 mg Memantine (Namenda) 5 mg PO BID [facility] Last Admin: 02/16/18 09:33 Dose: 5 mg Metformin HCl (Glucophage) 500 mg PO BIDWM [facility] Last Admin: 02/16/18 09:31 Dose: 500 mg Methylprednisolone (Solu-Medrol) 20 mg IVP BID [facility] Metolazone (Zaroxolyn) 2.5 mg PO DAILY [facility] Last Admin: 02/09/18 09:35 Dose: 2.5 mg [id number]-[id number] Ethyl Esters (Lovaza) 1 gm PO DAILY [facility] Last Admin: 02/16/18 09:33 Dose: 1 gm Rivaroxaban (Xarelto) 15 mg PO DAILY [facility] PRN Reason: Protocol Last Admin: 02/16/18 09:34 Dose: 15 mg Sitagliptin Phosphate (Januvia) 50 mg PO DAILY [facility] Last Admin: 02/16/18 09:32 Dose: 50 mg Spironolactone (Aldactone) 50 mg PO DAILY [facility] Last Admin: 02/09/18 09:23 Dose: 50 mg Valsartan (Diovan) 160 mg PO DAILY [facility] Last Admin: 02/09/18 09:29 Dose: Not Given - Labs Labs: 02/16/18 11:37 02/16/18 11:37 - Constitutional Appears: Chronically Ill - Head Exam Head Exam: NORMAL INSPECTION - Eye Exam Eye Exam: PERRL - ENT Exam ENT Exam: Normal Exam - Neck Exam Neck Exam: Normal Inspection - Respiratory Exam Respiratory Exam: Decreased Breath Sounds, Rhonchi, Wheezes - Cardiovascular Exam Cardiovascular Exam: REGULAR RHYTHM, Murmur Additional comments: PPM - GI/Abdominal Exam GI & Abdominal Exam: Soft, Normal Bowel Sounds - Extremities Exam Extremities Exam: Pedal Edema - Neurological Exam Neurological Exam: Alert, CN II-XII Intact Additional comments: Forgetful, obeys commands - Psychiatric Exam Psychiatric exam: Anxious - Skin Skin Exam: Warm Assessment and Plan (1) Acute respiratory insufficiency Status: Acute (2) Pneumonia Status: Acute (3) COPD exacerbation Status: Acute (4) CHF (congestive heart failure) Status: Acute - Assessment and Plan (Free Text) Plan: CT CHEST upper Pulmonary infiltrates , PNA unresolving , wbc 26 , Patient on Solu Medrol , continue current Tx , ID consult
[2018-02-16] MEDS: MethylPREDNISolone 40 mg Vial IVP SCH (16:40)
[2018-02-16] MEDS: Potassium Chloride 20 mEq ER Tab PO SCH (16:43)
[2018-02-16] MEDS ORDERED: Sodium Chloride 3% for Inhalation 4 ML VIAL.NEB IH PRN (19:01)
--- NOTE | 2018-02-16 20:34 | CP.PCM.PN ---
Subjective - Date & Time of Evaluation Date of Evaluation: 02/16/18 Time of Evaluation: 20:20 - Subjective Subjective: I D NOTE HAVE REVIEWED CT SCAN ,THERE HAS BEEN NO IMPROVEMENT,IN FACT MAY HAVE WORSENED HAVE DISCONTINUED ZOSYN, STARTED TEFLARO POSSIBLY CONSIDER BRONCHOSCOPY Objective - Vital Signs/Intake and Output Vital Signs (last 24 hours): Temp Pulse Resp BP Pulse Ox 97.6 F 83 20 127/73 100 02/16/18 16:49 02/16/18 16:49 02/16/18 16:49 02/16/18 16:49 02/16/18 16:49 - Medications Medications: Current Medications Acetaminophen (Tylenol 325mg Tab) 650 mg PO Q6 PRN PRN Reason: Pain, Mild (1-3) Last Admin: 02/11/18 21:55 Dose: 650 mg Albuterol/Ipratropium (Duoneb 3 Mg/0.5 Mg (3 Ml) Ud) 3 ml INH RQ4 [facility] Last Admin: 02/16/18 18:59 Dose: 3 ml Amlodipine Besylate (Norvasc) 2.5 mg PO Q12 [facility] Atorvastatin Calcium (Lipitor) 40 mg PO DAILY [facility] Last Admin: 02/16/18 09:33 Dose: 40 mg Carvedilol (Coreg) 12.5 mg PO Q12 [facility] Last Admin: 02/09/18 09:27 Dose: Not Given Clopidogrel Bisulfate (Plavix) 75 mg PO DAILY [facility] Last Admin: 02/16/18 09:34 Dose: 75 mg Dextrose (Dextrose 50% Inj) 0 ml IV STAT PRN; Protocol PRN Reason: Hypoglycemia Protocol Dextrose (Glutose 15) 0 gm PO ONCE PRN; Protocol PRN Reason: Hypoglycemia Protocol Furosemide (Lasix) 40 mg IVP DAILY [facility] Gabapentin (Neurontin) 300 mg PO DAILY [facility] Last Admin: 02/09/18 09:33 Dose: 300 mg Glucagon (Glucagen Diagnostic Kit) 0 mg IM STAT PRN; Protocol PRN Reason: Hypoglycemia Protocol Home Med (Icosapent Ethyl [Vascepa]) 1 gm PO DAILY [facility] Home Med (Linagliptin [Tradjenta]) 5 mg PO DAILY [facility] Home Med (Memantine Hcl [Namenda Xr]) 14 mg PO QPM [facility] Clindamycin Phosphate (Cleocin In Normal Saline) 600 mg in 50 mls @ 50 mls/hr IVPB Q12 [facility] PRN Reason: Protocol Last Admin: 02/16/18 11:00 Dose: 50 mls/hr Ceftaroline Fosamil 400 mg/ (Sodium Chloride) 100 mls @ 100 mls/hr IVPB Q12 [facility] PRN Reason: Protocol Ibuprofen (Motrin Tab) 400 mg PO Q6 PRN PRN Reason: Pain, moderate (4-7) Insulin Human Lispro (Humalog) 0 units SC ACHS [facility] PRN Reason: Protocol Last Admin: 02/16/18 16:41 Dose: 4 units Lactobacillus Acidophilus (Bacid Acidophilus) 1 cap PO BID [facility] Last Admin: 02/16/18 16:37 Dose: 1 cap Losartan Potassium (Cozaar) 25 mg PO DAILY [facility] Last Admin: 02/16/18 09:31 Dose: 25 mg Memantine (Namenda) 5 mg PO BID [facility] Last Admin: 02/16/18 19:15 Dose: 5 mg Metformin HCl (Glucophage) 500 mg PO BIDWM [facility] Last Admin: 02/16/18 16:37 Dose: 500 mg Methylprednisolone (Solu-Medrol) 20 mg IVP BID [facility] Last Admin: 02/16/18 16:40 Dose: 20 mg Metolazone (Zaroxolyn) 2.5 mg PO DAILY [facility] Last Admin: 02/09/18 09:35 Dose: 2.5 mg [id number] Ethyl Esters (Lovaza) 1 gm PO DAILY [facility] Last Admin: 02/16/18 09:33 Dose: 1 gm Potassium Chloride (K-Dur 20 Meq Er Tab) 20 meq PO DAILY [facility] Last Admin: 02/16/18 16:43 Dose: 20 meq Rivaroxaban (Xarelto) 15 mg PO DAILY [facility] PRN Reason: Protocol Last Admin: 02/16/18 09:34 Dose: 15 mg Sitagliptin Phosphate (Januvia) 50 mg PO DAILY [facility] Last Admin: 02/16/18 09:32 Dose: 50 mg Spironolactone (Aldactone) 50 mg PO DAILY [facility] Last Admin: 02/09/18 09:23 Dose: 50 mg Valsartan (Diovan) 160 mg PO DAILY [facility] Last Admin: 02/09/18 09:29 Dose: Not Given - Labs Labs: 02/16/18 11:37 02/16/18 11:37
[2018-02-17] MEDS: Albuterol-Ipratrop 3 mg / 0.5 (3 ml) UD INH SCH ×7 (00:05→23:15)
--- NOTE | 2018-02-17 04:25 | PCM.RRT ---
CHECKER AND PACKER Nurse Assessment - Situation [employer]ER AND PACKER Responder Arrival Time: 23:14 [employer]ER Reason for Call: Chest Pain - IV IV Inserted during CHECKER AND PACKER?: Yes - Respiratory Oxygen Delivery Method: Nasal Cannula Received Nebulizer Treatments: Yes (duoneb x2) Was the Patient Ventilated with Bag/Mask 100% O2?: No Secretions Suctioned?: No Was the Patient Intubated?: No Was the Patient Placed on a Ventilator?: No - Ventilator Settings FIO2 (% Oxygen): 50 - Diagnostic Test Ordered EKG: Yes Chest X-Ray: Yes CT Scan: No CPR started during CHECKER AND PACKER?: No - Vital Signs Vital Signs: Rapid Response Vital Sign Blood Pressure 152/72 Pulse Rate 75 Respiratory Rate 32 Temperature 97.9 F Oxygen Saturation 94 - Time [employer] PACKER Ended Time [employer] P[employer]ER Ended: 00:25 - Vital Signs at end of [employer]ER AND PACKER Vital Signs at end of [employer] AND PACKER: Rapid Response End Vital Sign Blood Pressure 143/82 Pulse Rate 80 Respiratory Rate 31 Temperature 97.9 F O2 Sat by Pulse Oximetry 99 - Recommendations [employer]ER AND PACKER Level of Care Recommendations: Remain in current setting I.Reason for CHECKER AND PACKER - A) Acute Change in Patient: Subjective: S: 82 y/o female with history of COPD, dCHF, DM, pacemaker, and dementia, admitted for CHF/pneumonia had CHECKER AND PACKER called for chest discomfort and SOB. O: Vitals: BP: 132/70, HR 59, RR 21, POX 97% on 2L NC GEN: mild discomfort, NAD CVS: RRR, S1S2+, no JVD, +murmur Lungs: rales/rhonci b/l EXT: edematous upper extremities, no pedal edema Pulses: 2+throughtout [employer]ER AND PACKER Intervention: Repeat AM labs, as well as troponin/pro-BNP added stat Lasix 40mg IV x1 dose -pt remained stable during entire [employer]ER AND PACKER Vitals at [employer]ER AND PACKER end: T: 97.9, BP: 136/71, HR: 81, RR: 18, POX: 100% 2L NC A: 82 y/o female with extensive medical history admitted for CHF/pneumonia, had [employer] PACKER called secondary to SOB/chest discomfort P: monitor vitals Lasix x1, 40mg IV f/u labs intervene accordingly - Neurological Status (Select all that apply): Alert, Responsive, Oriented - Respiratory Oxygen Delivery Method: Nasal Cannula @L/min Oxygen Flow Rate: 2
[2018-02-17 04:46] LABS: BASO # 0.1 K/uL (0.0-0.2); BASO % 0.3 % (0.0-2.0); LYMPH # 1.1 K/uL (1.0-4.3); LYMPH % 5.9 % (20.0-40.0); MEAN CELL VOLUME 92.6 fl (81.0-99.0); MEAN CORPUSCULAR HEMOGLOBIN 29.7 pg (27.0-31.0); MEAN PLATELET VOLUME 11.4 fl (7.2-11.7); MONO # 0.5 K/uL (0.0-0.8); MONO % 2.6 % (0.0-10.0); NEUT # 17.8 K/uL (1.8-7.0); NEUT % 91.2 % (50.0-75.0); NRBC % 0.4 % (0.0-0.0); PLATELET COUNT 209 K/uL (130-400); RBC 3.72 Mil/uL (3.80-5.20); RED CELL DISTRIBUTION WIDTH 19.9 % (11.5-14.5); WHITE BLOOD COUNT 19.5 K/uL (4.8-10.8)
[2018-02-17 05:06] LABS: TROPONIN I 0.28 ng/mL (0.00-0.120)
[2018-02-17 05:14] LABS: LYMPHOCYTE 5 % (20-50); METAMYELOCYTE 1 % (0-0); NEUTROPHIL 94 % (42-75); TOTAL CELLS COUNTED 100
[2018-02-17 05:15] LABS: ANISOCYTOSIS SLIGHT; OVALOCYTES SLIGHT; PLATELET ESTIMATE NORMAL (NORMAL); POIKILOCYTOSIS SLIGHT
[2018-02-17 05:32] LABS: MONOCYTE 0 % (0-10)
[2018-02-17] MEDS: Clindamycin 600mg/50ml NS 600 MG/50 ML BAG IVPB SCH ×2 (08:24→20:39)
[2018-02-17] MEDS: Insulin Lispro (humaLOG) 100 Units/ml Inj SC SCH ×4 (08:30→22:10)
[2018-02-17] MEDS: Potassium Chloride 20 mEq ER Tab PO SCH (08:33)
[2018-02-17] MEDS: Omega-3-Acid Ethyl Esters 1 GM Cap PO SCH (08:35)
[2018-02-17] MEDS: Lactobacillus Acidophilus 500 MU Cap PO SCH ×2 (08:45→18:12)
[2018-02-17] MEDS: MethylPREDNISolone 40 mg Vial IVP SCH ×2 (08:45→18:19)
--- NOTE | 2018-02-17 13:52 | CP.PCM.PN ---
Subjective - Date & Time of Evaluation Date of Evaluation: 02/17/18 Time of Evaluation: 11:30 - Subjective Subjective: Pt had earlier [employer] for CP , SOB , no CP now , no AD, complsains of SOB Objective - Vital Signs/Intake and Output Vital Signs (last 24 hours): Temp Pulse Resp BP Pulse Ox 97.5 F L 61 20 132/68 96 02/17/18 09:05 02/17/18 09:05 02/17/18 09:05 02/17/18 09:05 02/17/18 09:05 - Medications Medications: Current Medications Acetaminophen (Tylenol 325mg Tab) 650 mg PO Q6 PRN PRN Reason: Pain, Mild (1-3) Last Admin: 02/11/18 21:55 Dose: 650 mg Albuterol/Ipratropium (Duoneb 3 Mg/0.5 Mg (3 Ml) Ud) 3 ml INH RQ4 [facility] Last Admin: 02/17/18 11:03 Dose: 3 ml Amlodipine Besylate (Norvasc) 2.5 mg PO Q12 [facility] Last Admin: 02/17/18 08:34 Dose: 2.5 mg Atorvastatin Calcium (Lipitor) 40 mg PO DAILY [facility] Last Admin: 02/17/18 08:35 Dose: 40 mg Carvedilol (Coreg) 12.5 mg PO Q12 [facility] Last Admin: 02/09/18 09:27 Dose: Not Given Clopidogrel Bisulfate (Plavix) 75 mg PO DAILY [facility] Last Admin: 02/17/18 08:35 Dose: 75 mg Dextrose (Dextrose 50% Inj) 0 ml IV STAT PRN; Protocol PRN Reason: Hypoglycemia Protocol Dextrose (Glutose 15) 0 gm PO ONCE PRN; Protocol PRN Reason: Hypoglycemia Protocol Furosemide (Lasix) 40 mg IVP DAILY [facility] Last Admin: 02/17/18 08:45 Dose: 40 mg Gabapentin (Neurontin) 300 mg PO DAILY [facility] Last Admin: 02/09/18 09:33 Dose: 300 mg Glucagon (Glucagen Diagnostic Kit) 0 mg IM STAT PRN; Protocol PRN Reason: Hypoglycemia Protocol Home Med (Icosapent Ethyl [Vascepa]) 1 gm PO DAILY [facility] Home Med (Linagliptin [Tradjenta]) 5 mg PO DAILY [facility] Home Med (Memantine Hcl [Namenda Xr]) 14 mg PO QPM [facility] Clindamycin Phosphate (Cleocin In Normal Saline) 600 mg in 50 mls @ 50 mls/hr IVPB Q12 [facility] PRN Reason: Protocol Last Admin: 02/17/18 08:24 Dose: 50 mls/hr Ceftaroline Fosamil 400 mg/ (Sodium Chloride) 100 mls @ 100 mls/hr IVPB Q12 [facility] PRN Reason: Protocol Ibuprofen (Motrin Tab) 400 mg PO Q6 PRN PRN Reason: Pain, moderate (4-7) Insulin Human Lispro (Humalog) 0 units SC ACHS [facility] PRN Reason: Protocol Last Admin: 02/17/18 13:03 Dose: 3 units Lactobacillus Acidophilus (Bacid Acidophilus) 1 cap PO BID [facility] Last Admin: 02/17/18 08:45 Dose: 1 cap Losartan Potassium (Cozaar) 25 mg PO DAILY [facility] Last Admin: 02/17/18 08:37 Dose: 25 mg Memantine (Namenda) 5 mg PO BID [facility] Last Admin: 02/17/18 08:34 Dose: 5 mg Metformin HCl (Glucophage) 500 mg PO BIDWM [facility] Last Admin: 02/17/18 08:34 Dose: 500 mg Methylprednisolone (Solu-Medrol) 20 mg IVP BID [facility] Last Admin: 02/17/18 08:45 Dose: 20 mg Metolazone (Zaroxolyn) 2.5 mg PO DAILY [facility] Last Admin: 02/09/18 09:35 Dose: 2.5 mg [id number] Ethyl Esters (Lovaza) 1 gm PO DAILY [facility] Last Admin: 02/17/18 08:35 Dose: 1 gm Potassium Chloride (K-Dur 20 Meq Er Tab) 20 meq PO DAILY [facility] Last Admin: 02/17/18 08:33 Dose: 20 meq Rivaroxaban (Xarelto) 15 mg PO DAILY [facility] PRN Reason: Protocol Last Admin: 02/17/18 08:33 Dose: 15 mg Sitagliptin Phosphate (Januvia) 50 mg PO DAILY [facility] Last Admin: 02/17/18 08:34 Dose: 50 mg Spironolactone (Aldactone) 50 mg PO DAILY [facility] Last Admin: 02/09/18 09:23 Dose: 50 mg Valsartan (Diovan) 160 mg PO DAILY [facility] Last Admin: 02/09/18 09:29 Dose: Not Given - Labs Labs: 02/17/18 04:38 02/16/18 11:37 - Constitutional Appears: Chronically Ill - Head Exam Head Exam: NORMAL INSPECTION - Eye Exam Eye Exam: PERRL - ENT Exam ENT Exam: Normal Exam - Neck Exam Neck Exam: Normal Inspection - Respiratory Exam Respiratory Exam: Decreased Breath Sounds, Rhonchi, Wheezes - Cardiovascular Exam Cardiovascular Exam: REGULAR RHYTHM, Murmur Additional comments: PPM - GI/Abdominal Exam GI & Abdominal Exam: Soft, Normal Bowel Sounds - Extremities Exam Additional comments: edema U/E , L/E - Back Exam Back Exam: NORMAL INSPECTION - Neurological Exam Neurological Exam: Alert Additional comments: no focal motor /sensory deficit , generalized weakness - Psychiatric Exam Psychiatric exam: Anxious - Skin Skin Exam: Warm Assessment and Plan (1) Acute respiratory insufficiency Status: Acute (2) Pneumonia Status: Acute (3) COPD exacerbation Status: Acute (4) CHF (congestive heart failure) Status: Acute - Assessment and Plan (Free Text) Plan: worsening PNA , seen by ID on Teflaro , Clinda , continue DuoNeb , Spirolactone , Lasix , Solu Medrol
--- NOTE | 2018-02-17 20:35 | CP.PCM.PN ---
Subjective - Date & Time of Evaluation Date of Evaluation: 02/17/18 Time of Evaluation: 20:35 - Subjective Subjective: PT STATES SHE FEELS BETTER. HAD PRESIDENT [employer] ACQUISTION LAST NIGHT FOR SOB. CTA OF CHEST REVIEWED. NO PULM EDEMA, POSSIBLE RESP INFXN. PT WITH CONTINUED RHONCHI INSP AND EXP WHEEZING. WBC INCREASED. CANCEL CATH PT WITH ACUTE RESP INFXN. WOULD MONITOR BC GIVEN VALVE. Objective - Vital Signs/Intake and Output Vital Signs (last 24 hours): Temp Pulse Resp BP Pulse Ox 98.1 F 82 20 130/74 100 02/17/18 16:41 02/17/18 16:41 02/17/18 16:41 02/17/18 18:10 02/17/18 16:41 - Medications Medications: Current Medications Acetaminophen (Tylenol 325mg Tab) 650 mg PO Q6 PRN PRN Reason: Pain, Mild (1-3) Last Admin: 02/11/18 21:55 Dose: 650 mg Albuterol/Ipratropium (Duoneb 3 Mg/0.5 Mg (3 Ml) Ud) 3 ml INH RQ4 [facility] Last Admin: 02/17/18 19:17 Dose: 3 ml Atorvastatin Calcium (Lipitor) 40 mg PO DAILY [facility] Last Admin: 02/17/18 08:35 Dose: 40 mg Carvedilol (Coreg) 12.5 mg PO Q12 [facility] Last Admin: 02/09/18 09:27 Dose: Not Given Clopidogrel Bisulfate (Plavix) 75 mg PO DAILY [facility] Last Admin: 02/17/18 08:35 Dose: 75 mg Dextrose (Dextrose 50% Inj) 0 ml IV STAT PRN; Protocol PRN Reason: Hypoglycemia Protocol Dextrose (Glutose 15) 0 gm PO ONCE PRN; Protocol PRN Reason: Hypoglycemia Protocol Furosemide (Lasix) 40 mg IV BID [facility] Last Admin: 02/17/18 18:10 Dose: 40 mg Gabapentin (Neurontin) 300 mg PO DAILY [facility] Last Admin: 02/09/18 09:33 Dose: 300 mg Glucagon (Glucagen Diagnostic Kit) 0 mg IM STAT PRN; Protocol PRN Reason: Hypoglycemia Protocol Home Med (Icosapent Ethyl [Vascepa]) 1 gm PO DAILY [facility] Home Med (Linagliptin [Tradjenta]) 5 mg PO DAILY [facility] Home Med (Memantine Hcl [Namenda Xr]) 14 mg PO QPM [facility] Clindamycin Phosphate (Cleocin In Normal Saline) 600 mg in 50 mls @ 50 mls/hr IVPB Q12 [facility] PRN Reason: Protocol Last Admin: 02/17/18 08:24 Dose: 50 mls/hr Ceftaroline Fosamil 400 mg/ (Sodium Chloride) 100 mls @ 100 mls/hr IVPB Q12 [facility] PRN Reason: Protocol Ibuprofen (Motrin Tab) 400 mg PO Q6 PRN PRN Reason: Pain, moderate (4-7) Insulin Human Lispro (Humalog) 0 units SC ACHS [facility] PRN Reason: Protocol Last Admin: 02/17/18 17:15 Dose: 2 units Lactobacillus Acidophilus (Bacid Acidophilus) 1 cap PO BID [facility] Last Admin: 02/17/18 18:12 Dose: 1 cap Losartan Potassium (Cozaar) 50 mg PO DAILY [facility] Memantine (Namenda) 5 mg PO BID [facility] Last Admin: 02/17/18 18:22 Dose: 5 mg Metformin HCl (Glucophage) 500 mg PO BIDWM [facility] Last Admin: 02/17/18 18:15 Dose: 500 mg Methylprednisolone (Solu-Medrol) 20 mg IVP BID [facility] Last Admin: 02/17/18 18:19 Dose: 20 mg Metolazone (Zaroxolyn) 2.5 mg PO DAILY [facility] Last Admin: 02/09/18 09:35 Dose: 2.5 mg [id number] Ethyl Esters (Lovaza) 1 gm PO DAILY [facility] Last Admin: 02/17/18 08:35 Dose: 1 gm Potassium Chloride (K-Dur 20 Meq Er Tab) 20 meq PO DAILY [facility] Last Admin: 02/17/18 08:33 Dose: 20 meq Rivaroxaban (Xarelto) 15 mg PO DAILY [facility] PRN Reason: Protocol Last Admin: 02/17/18 08:33 Dose: 15 mg Sitagliptin Phosphate (Januvia) 50 mg PO DAILY [facility] Last Admin: 02/17/18 08:34 Dose: 50 mg Spironolactone (Aldactone) 50 mg PO DAILY [facility] Last Admin: 02/09/18 09:23 Dose: 50 mg Valsartan (Diovan) 160 mg PO DAILY [facility] Last Admin: 02/09/18 09:29 Dose: Not Given - Labs Labs: 02/17/18 04:38 02/16/18 11:37 Assessment and Plan (1) Acute on chronic heart failure Status: Chronic (2) Cardiomyopathy Status: Acute (3) Pneumonia Status: Acute (4) Bronchitis Status: Acute (5) Atrial fibrillation Status: Chronic (6) Pacemaker Status: Chronic
[2018-02-18] MEDS: Albuterol-Ipratrop 3 mg / 0.5 (3 ml) UD INH SCH ×6 (04:59→23:30)
--- NOTE | 2018-02-18 08:34 | CP.PCM.PN ---
Subjective - Date & Time of Evaluation Date of Evaluation: 02/16/18 Time of Evaluation: 09:35 - Subjective Subjective: Patient continues to have SOB Has no fever WBC is elevated On solumedrol repeat CT scan shpwed ground glass appearance on lower lung and pleural effusion. probnp ieelevated. Objective - Vital Signs/Intake and Output Vital Signs (last 24 hours): Temp Pulse Resp BP Pulse Ox 97.5 F L 91 H 18 126/80 94 L 02/18/18 08:00 02/18/18 08:00 02/18/18 08:00 02/18/18 08:00 02/18/18 08:00 - Medications Medications: Current Medications Acetaminophen (Tylenol 325mg Tab) 650 mg PO Q6 PRN PRN Reason: Pain, Mild (1-3) Last Admin: 02/11/18 21:55 Dose: 650 mg Albuterol/Ipratropium (Duoneb 3 Mg/0.5 Mg (3 Ml) Ud) 3 ml INH RQ4 [facility] Last Admin: 02/18/18 07:54 Dose: 3 ml Atorvastatin Calcium (Lipitor) 40 mg PO DAILY [facility] Last Admin: 02/17/18 08:35 Dose: 40 mg Carvedilol (Coreg) 12.5 mg PO Q12 [facility] Last Admin: 02/09/18 09:27 Dose: Not Given Clopidogrel Bisulfate (Plavix) 75 mg PO DAILY [facility] Last Admin: 02/17/18 08:35 Dose: 75 mg Dextrose (Dextrose 50% Inj) 0 ml IV STAT PRN; Protocol PRN Reason: Hypoglycemia Protocol Dextrose (Glutose 15) 0 gm PO ONCE PRN; Protocol PRN Reason: Hypoglycemia Protocol Furosemide (Lasix) 40 mg IV BID [facility] Last Admin: 02/17/18 18:10 Dose: 40 mg Gabapentin (Neurontin) 300 mg PO DAILY [facility] Last Admin: 02/09/18 09:33 Dose: 300 mg Glucagon (Glucagen Diagnostic Kit) 0 mg IM STAT PRN; Protocol PRN Reason: Hypoglycemia Protocol Home Med (Icosapent Ethyl [Vascepa]) 1 gm PO DAILY [facility] Home Med (Linagliptin [Tradjenta]) 5 mg PO DAILY [facility] Home Med (Memantine Hcl [Namenda Xr]) 14 mg PO QPM [facility] Clindamycin Phosphate (Cleocin In Normal Saline) 600 mg in 50 mls @ 50 mls/hr IVPB Q12 [facility] PRN Reason: Protocol Last Admin: 02/17/18 20:39 Dose: 50 mls/hr Ceftaroline Fosamil 400 mg/ (Sodium Chloride) 100 mls @ 100 mls/hr IVPB Q12 [facility] PRN Reason: Protocol Last Admin: 02/17/18 21:30 Dose: 100 mls/hr Ibuprofen (Motrin Tab) 400 mg PO Q6 PRN PRN Reason: Pain, moderate (4-7) Insulin Human Lispro (Humalog) 0 units SC ACHS [facility] PRN Reason: Protocol Last Admin: 02/17/18 22:10 Dose: Not Given Lactobacillus Acidophilus (Bacid Acidophilus) 1 cap PO BID [facility] Last Admin: 02/17/18 18:12 Dose: 1 cap Losartan Potassium (Cozaar) 50 mg PO DAILY [facility] Memantine (Namenda) 5 mg PO BID [facility] Last Admin: 02/17/18 18:22 Dose: 5 mg Metformin HCl (Glucophage) 500 mg PO BIDWM [facility] Last Admin: 02/17/18 18:15 Dose: 500 mg Methylprednisolone (Solu-Medrol) 20 mg IVP BID [facility] Last Admin: 02/17/18 18:19 Dose: 20 mg Metolazone (Zaroxolyn) 2.5 mg PO DAILY [facility] Last Admin: 02/09/18 09:35 Dose: 2.5 mg [id number] Ethyl Esters (Lovaza) 1 gm PO DAILY [facility] Last Admin: 02/17/18 08:35 Dose: 1 gm Potassium Chloride (K-Dur 20 Meq Er Tab) 20 meq PO DAILY [facility] Last Admin: 02/17/18 08:33 Dose: 20 meq Rivaroxaban (Xarelto) 15 mg PO DAILY [facility] PRN Reason: Protocol Last Admin: 02/17/18 08:33 Dose: 15 mg Sitagliptin Phosphate (Januvia) 50 mg PO DAILY [facility] Last Admin: 02/17/18 08:34 Dose: 50 mg Spironolactone (Aldactone) 50 mg PO DAILY [facility] Last Admin: 02/09/18 09:23 Dose: 50 mg Valsartan (Diovan) 160 mg PO DAILY [facility] Last Admin: 02/09/18 09:29 Dose: Not Given - Labs Labs: 02/17/18 04:38 02/16/18 11:37 - Eye Exam Eye Exam: Normal appearance - ENT Exam ENT Exam: Mucous Membranes Moist - Respiratory Exam Respiratory Exam: Decreased Breath Sounds, Rales, Rhonchi, Stridor - Cardiovascular Exam Cardiovascular Exam: REGULAR RHYTHM - GI/Abdominal Exam GI & Abdominal Exam: Normal Bowel Sounds - Neurological Exam Neurological Exam: Awake, Oriented x3 - Psychiatric Exam Psychiatric exam: Anxious Assessment and Plan (1) CHF (congestive heart failure) Status: Acute (2) Pneumonia Status: Acute (3) Hyperkalemia Status: Acute (4) Hypotension Status: Acute (5) COPD (chronic obstructive pulmonary disease) Status: Acute (6) Diabetes mellitus type 2 in nonobese Status: Acute - Assessment and Plan (Free Text) Plan: cont Lasix cont steroids neb tx start PT ID follow up.
--- NOTE | 2018-02-18 08:38 | CP.PCM.PN ---
Subjective - Date & Time of Evaluation Date of Evaluation: 02/17/18 Time of Evaluation: 11:00 - Subjective Subjective: Patient continues to have elevated probnp Has very poor appetite Noted positive troponin Still with a lot of SOB ECHo showed normal EF and normal LV. On high dose steroids and neb tx On tefloro and clindamycin WBC dropped from 26 to 19. Objective - Vital Signs/Intake and Output Vital Signs (last 24 hours): Temp Pulse Resp BP Pulse Ox 97.5 F L 91 H 18 126/80 94 L 02/18/18 08:00 02/18/18 08:00 02/18/18 08:00 02/18/18 08:00 02/18/18 08:00 - Medications Medications: Current Medications Acetaminophen (Tylenol 325mg Tab) 650 mg PO Q6 PRN PRN Reason: Pain, Mild (1-3) Last Admin: 02/11/18 21:55 Dose: 650 mg Albuterol/Ipratropium (Duoneb 3 Mg/0.5 Mg (3 Ml) Ud) 3 ml INH RQ4 [facility] Last Admin: 02/18/18 07:54 Dose: 3 ml Atorvastatin Calcium (Lipitor) 40 mg PO DAILY [facility] Last Admin: 02/17/18 08:35 Dose: 40 mg Carvedilol (Coreg) 12.5 mg PO Q12 [facility] Last Admin: 02/09/18 09:27 Dose: Not Given Clopidogrel Bisulfate (Plavix) 75 mg PO DAILY [facility] Last Admin: 02/17/18 08:35 Dose: 75 mg Dextrose (Dextrose 50% Inj) 0 ml IV STAT PRN; Protocol PRN Reason: Hypoglycemia Protocol Dextrose (Glutose 15) 0 gm PO ONCE PRN; Protocol PRN Reason: Hypoglycemia Protocol Furosemide (Lasix) 40 mg IV BID [facility] Last Admin: 02/17/18 18:10 Dose: 40 mg Gabapentin (Neurontin) 300 mg PO DAILY [facility] Last Admin: 02/09/18 09:33 Dose: 300 mg Glucagon (Glucagen Diagnostic Kit) 0 mg IM STAT PRN; Protocol PRN Reason: Hypoglycemia Protocol Home Med (Icosapent Ethyl [Vascepa]) 1 gm PO DAILY [facility] Home Med (Linagliptin [Tradjenta]) 5 mg PO DAILY [facility] Home Med (Memantine Hcl [Namenda Xr]) 14 mg PO QPM [facility] Clindamycin Phosphate (Cleocin In Normal Saline) 600 mg in 50 mls @ 50 mls/hr IVPB Q12 [facility] PRN Reason: Protocol Last Admin: 02/17/18 20:39 Dose: 50 mls/hr Ceftaroline Fosamil 400 mg/ (Sodium Chloride) 100 mls @ 100 mls/hr IVPB Q12 [facility] PRN Reason: Protocol Last Admin: 02/17/18 21:30 Dose: 100 mls/hr Ibuprofen (Motrin Tab) 400 mg PO Q6 PRN PRN Reason: Pain, moderate (4-7) Insulin Human Lispro (Humalog) 0 units SC ACHS [facility] PRN Reason: Protocol Last Admin: 02/17/18 22:10 Dose: Not Given Lactobacillus Acidophilus (Bacid Acidophilus) 1 cap PO BID [facility] Last Admin: 02/17/18 18:12 Dose: 1 cap Losartan Potassium (Cozaar) 50 mg PO DAILY [facility] Memantine (Namenda) 5 mg PO BID [facility] Last Admin: 02/17/18 18:22 Dose: 5 mg Metformin HCl (Glucophage) 500 mg PO BIDWM [facility] Last Admin: 02/17/18 18:15 Dose: 500 mg Methylprednisolone (Solu-Medrol) 20 mg IVP BID [facility] Last Admin: 02/17/18 18:19 Dose: 20 mg Metolazone (Zaroxolyn) 2.5 mg PO DAILY [facility] Last Admin: 02/09/18 09:35 Dose: 2.5 mg Bhzsm-2-Isae Ethyl Esters (Lovaza) 1 gm PO DAILY [facility] Last Admin: 02/17/18 08:35 Dose: 1 gm Potassium Chloride (K-Dur 20 Meq Er Tab) 20 meq PO DAILY [facility] Last Admin: 02/17/18 08:33 Dose: 20 meq Rivaroxaban (Xarelto) 15 mg PO DAILY [facility] PRN Reason: Protocol Last Admin: 02/17/18 08:33 Dose: 15 mg Sitagliptin Phosphate (Januvia) 50 mg PO DAILY [facility] Last Admin: 02/17/18 08:34 Dose: 50 mg Spironolactone (Aldactone) 50 mg PO DAILY [facility] Last Admin: 02/09/18 09:23 Dose: 50 mg Valsartan (Diovan) 160 mg PO DAILY [facility] Last Admin: 02/09/18 09:29 Dose: Not Given - Labs Labs: 02/17/18 04:38 02/16/18 11:37 - Head Exam Head Exam: NORMAL INSPECTION - Eye Exam Eye Exam: Normal appearance - ENT Exam ENT Exam: Mucous Membranes Moist, Normal Oropharynx - Respiratory Exam Respiratory Exam: Rales, Wheezes - Cardiovascular Exam Cardiovascular Exam: REGULAR RHYTHM - GI/Abdominal Exam GI & Abdominal Exam: Normal Bowel Sounds - Neurological Exam Neurological Exam: Awake, Oriented x3 - Psychiatric Exam Psychiatric exam: Normal Mood Assessment and Plan (1) CHF (congestive heart failure) Status: Acute (2) Pneumonia Status: Acute (3) Hyperkalemia Status: Acute (4) Hypotension Status: Acute (5) COPD (chronic obstructive pulmonary disease) Status: Acute (6) Diabetes mellitus type 2 in nonobese Status: Acute - Assessment and Plan (Free Text) Plan: Cont meds Cont tx Cont steroids and IV antibiotics follow up with Dr Burrows.
--- NOTE | 2018-02-18 08:42 | CP.PCM.PN ---
Subjective - Date & Time of Evaluation Date of Evaluation: 02/18/18 Time of Evaluation: 08:40 - Subjective Subjective: Patient feels a lot better since Lasix was restarted. Has no chest pain . Has poor appetite Has no fever. Noted decrease in WBC suggested bronchoscopy. Objective - Vital Signs/Intake and Output Vital Signs (last 24 hours): Temp Pulse Resp BP Pulse Ox 97.5 F L 91 H 18 126/80 94 L 02/18/18 08:00 02/18/18 08:00 02/18/18 08:00 02/18/18 08:00 02/18/18 08:00 - Medications Medications: Current Medications Acetaminophen (Tylenol 325mg Tab) 650 mg PO Q6 PRN PRN Reason: Pain, Mild (1-3) Last Admin: 02/11/18 21:55 Dose: 650 mg Albuterol/Ipratropium (Duoneb 3 Mg/0.5 Mg (3 Ml) Ud) 3 ml INH RQ4 [facility] Last Admin: 02/18/18 07:54 Dose: 3 ml Atorvastatin Calcium (Lipitor) 40 mg PO DAILY [facility] Last Admin: 02/17/18 08:35 Dose: 40 mg Carvedilol (Coreg) 12.5 mg PO Q12 [facility] Last Admin: 02/09/18 09:27 Dose: Not Given Clopidogrel Bisulfate (Plavix) 75 mg PO DAILY [facility] Last Admin: 02/17/18 08:35 Dose: 75 mg Dextrose (Dextrose 50% Inj) 0 ml IV STAT PRN; Protocol PRN Reason: Hypoglycemia Protocol Dextrose (Glutose 15) 0 gm PO ONCE PRN; Protocol PRN Reason: Hypoglycemia Protocol Furosemide (Lasix) 40 mg IV BID [facility] Last Admin: 02/17/18 18:10 Dose: 40 mg Gabapentin (Neurontin) 300 mg PO DAILY [facility] Last Admin: 02/09/18 09:33 Dose: 300 mg Glucagon (Glucagen Diagnostic Kit) 0 mg IM STAT PRN; Protocol PRN Reason: Hypoglycemia Protocol Home Med (Icosapent Ethyl [Vascepa]) 1 gm PO DAILY [facility] Home Med (Linagliptin [Tradjenta]) 5 mg PO DAILY [facility] Home Med (Memantine Hcl [Namenda Xr]) 14 mg PO QPM [facility] Clindamycin Phosphate (Cleocin In Normal Saline) 600 mg in 50 mls @ 50 mls/hr IVPB Q12 [facility] PRN Reason: Protocol Last Admin: 02/17/18 20:39 Dose: 50 mls/hr Ceftaroline Fosamil 400 mg/ (Sodium Chloride) 100 mls @ 100 mls/hr IVPB Q12 [facility] PRN Reason: Protocol Last Admin: 02/17/18 21:30 Dose: 100 mls/hr Ibuprofen (Motrin Tab) 400 mg PO Q6 PRN PRN Reason: Pain, moderate (4-7) Insulin Human Lispro (Humalog) 0 units SC ACHS [facility] PRN Reason: Protocol Lactobacillus Acidophilus (Bacid Acidophilus) 1 cap PO BID [facility] Last Admin: 02/17/18 18:12 Dose: 1 cap Losartan Potassium (Cozaar) 50 mg PO DAILY [facility] Memantine (Namenda) 5 mg PO BID [facility] Last Admin: 02/17/18 18:22 Dose: 5 mg Metformin HCl (Glucophage) 500 mg PO BIDWM [facility] Last Admin: 02/17/18 18:15 Dose: 500 mg Methylprednisolone (Solu-Medrol) 20 mg IVP BID [facility] Last Admin: 02/17/18 18:19 Dose: 20 mg Metolazone (Zaroxolyn) 2.5 mg PO DAILY [facility] Last Admin: 02/09/18 09:35 Dose: 2.5 mg [id number] Ethyl Esters (Lovaza) 1 gm PO DAILY [facility] Last Admin: 02/17/18 08:35 Dose: 1 gm Potassium Chloride (K-Dur 20 Meq Er Tab) 20 meq PO DAILY [facility] Last Admin: 02/17/18 08:33 Dose: 20 meq Rivaroxaban (Xarelto) 15 mg PO DAILY [facility] PRN Reason: Protocol Last Admin: 02/17/18 08:33 Dose: 15 mg Sitagliptin Phosphate (Januvia) 50 mg PO DAILY [facility] Last Admin: 02/17/18 08:34 Dose: 50 mg Spironolactone (Aldactone) 50 mg PO DAILY [facility] Last Admin: 02/09/18 09:23 Dose: 50 mg Valsartan (Diovan) 160 mg PO DAILY [facility] Last Admin: 02/09/18 09:29 Dose: Not Given - Labs Labs: 02/17/18 04:38 02/16/18 11:37 - Head Exam Head Exam: NORMAL INSPECTION - ENT Exam ENT Exam: Mucous Membranes Moist - Respiratory Exam Respiratory Exam: Decreased Breath Sounds, Rales - Cardiovascular Exam Cardiovascular Exam: REGULAR RHYTHM - GI/Abdominal Exam GI & Abdominal Exam: Normal Bowel Sounds - Neurological Exam Neurological Exam: Awake, Oriented x3 Assessment and Plan (1) CHF (congestive heart failure) Status: Acute (2) Pneumonia Status: Acute (3) Hyperkalemia Status: Acute (4) Hypotension Status: Acute (5) COPD (chronic obstructive pulmonary disease) Status: Acute (6) Diabetes mellitus type 2 in nonobese Status: Acute - Assessment and Plan (Free Text) Plan: follow up with Dr Burrows repeat CXR and probnp cbc cmp . cont iv antibiotics
[2018-02-18] MEDS: Lactobacillus Acidophilus 500 MU Cap PO SCH ×2 (09:20→17:55)
[2018-02-18] MEDS: MethylPREDNISolone 40 mg Vial IVP SCH ×2 (09:21→17:57)
--- NOTE | 2018-02-18 09:25 | RAD ---
PROCEDURE: Portable chest radiograph HISTORY: pneumonia chf COMPARISON: Frontal chest radiograph 02/13/2018. TECHNIQUE: Single frontal portable chest radiograph is submitted for interpretation. FINDINGS: Pulmonary vascular pattern is diminishing with cardiomegaly stable. Left pleural effusion diminished with possible trace residual. Mild right pleural effusion likely is also diminished with significant residual. Underlying right perihilar/ basilar infiltrate is not excluded with none apparent at the left. 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 No pneumothorax bilaterally. IMPRESSION: Improving CHF with residual as discussed above. Underlying right perihilar/ basilar airspace disease not excluded.
[2018-02-18] MEDS ORDERED: Albuterol-Ipratrop 3 mg / 0.5 (3 ml) UD INH STA (09:31)
--- NOTE | 2018-02-18 09:50 | PCM.RRT ---
<CastañedaFang persaud - Last Filed: 02/18/18 09:47> BLIND ESCORT Nurse Assessment - Situation BLIND ESCORT Responder Arrival Time: 09:26 Location: [address] [place] [address] Room Number: 668 [facility] Reason for Call: Chest Pain [facility] Called By: RN, Physician, Other Disciplines, Patient/Family Request - IV IV Inserted during BLIND ESCORT?: No - Respiratory Oxygen Delivery Method: Nasal Cannula Received Nebulizer Treatments: Yes Was the Patient Ventilated with Bag/Mask 100% O2?: No Secretions Suctioned?: No Was the Patient Intubated?: No Was the Patient Placed on a Ventilator?: No - Ventilator Settings FIO2 (% Oxygen): 50 - Medication Medications Administered During BLIND ESCORT: duoneb x2. lasix 20 mg - Diagnostic Test Ordered EKG: Yes Chest X-Ray: Yes CT Scan: No - Stat Labs Ordered BLIND [facility] Stat Labs Ordered: CBC, BMP, PT/PTT, TROPONIN [facility] Other Labs Ordered: BNP CPR started during BLIND ESCORT?: No - Vital Signs Vital Signs: Rapid Response Vital Sign Blood Pressure 136/71 Pulse Rate 80 Respiratory Rate 16 Temperature 99.0 F Oxygen Saturation 99 - Time BLIND ESCORT Ended Time BLIND ESCORT Ended: 04:43 - Vital Signs at end of BLIND ESCORT Vital Signs at end of BLIND ESCORT: Rapid Response End Vital Sign Blood Pressure 121/75 Pulse Rate 79 Respiratory Rate 20 Temperature 99.1 F O2 Sat by Pulse Oximetry 99 - Recommendations BLIND ESCORT Level of Care Recommendations: Remain in current setting I.Reason for BLIND ESCORT - A) Acute Change in Patient: (Select all that apply): Chest Pain Subjective: BLIND ESCORT was called for 82 y/o woman w/ pmh of NIDDM2, COPD (emphysema), diastolic CHF, CAD, pacemaker, and dementia for evaluation and treatment of chest pain and dyspnea. Upon arrival, patient was c/o chest pain which was reproducible, VS : 149/78, HR77, 94% 2L NC, Tm 98.2. On examination, Resp; wheezing and rhonchi. STAT EKG, CBC, CMP, Pro-BNP, Troponin, Neb tx, Parham and Lasix 60mg ordered. STAT EKG shows no change from previous EKG. Decision made to transfer patient to Telemetry for further evaluation and treatment. Case discussed with Dr. Presley - Respiratory Oxygen Delivery Method: Nasal Cannula @L/min Oxygen Flow Rate: 2 - Constitutional Appears: Chronically Ill - Head Head Exam: NORMAL INSPECTION - Eyes Eye Exam: Normal appearance - Respiratory Exam Respiratory Exam: Decreased Breath Sounds, Rhonchi, Wheezes - Cardiovascular Exam Cardiovascular Exam: REGULAR RHYTHM - GI/Abdominal Exam GI & Abdominal Exam: Soft. absent: Tenderness - Neurological Exam Neurological Exam: Alert, Awake <Gita Persley - Last Filed: 02/18/18 14:54> BLIND ESCORT Nurse Assessment - Vital Signs Vital Signs: Rapid Response Vital Sign Blood Pressure 156/78 Pulse Rate 85 Respiratory Rate 24 Temperature 98.2 F Oxygen Saturation 95 - Vital Signs at end of BLIND ESCORT Vital Signs at end of BLIND ESCORT: Rapid Response End Vital Sign Blood Pressure 141/86 Pulse Rate 84 Respiratory Rate 24 Temperature 98.2 F O2 Sat by Pulse Oximetry 100 Attending/Attestation - Attestation I have personally seen and examined this patient.: Yes I have fully participated in the care of the patient.: Yes I have reviewed all pertinent clinical information, including history, physical exam and plan: Yes Notes (Text): A/P: 1. Chest Pain/Troponin Elevation - pt had Trop + yesterday - EKG : no change from previous - will rpt Trop, BMP - cont Plavix, Pradaxa, Statin, BB and ARB - Dr García notified of event 2. SOB sec to CHF exacerbation, diastolic, COPD exacerbation and PNA - Lasix IV given - Duoneb treatment -contIV antibiotics - Pulmonary on the case -rpt ProBNP Transfer pt to Telemetry for close monitoring PMD notified of event
--- NOTE | 2018-02-18 09:51 | CARD ---
APPROVED REPORT EKG Measurement Heart [id number] <Conclusion> A- sensed Ventricular-paced rhythm Abnormal ECG
[2018-02-18 10:01] LABS: BASO % 0.2 % (0.0-2.0); HEMOGLOBIN 10.1 g/dL (12.0-16.0); LYMPH # 1.4 K/uL (1.0-4.3); MEAN CORPUSCULAR HEMOGLOBIN 29.6 pg (27.0-31.0); MEAN CORPUSCULAR HGB CONC 31.9 g/dL (33.0-37.0); MEAN PLATELET VOLUME 10.7 fl (7.2-11.7); MONO # 0.7 K/uL (0.0-0.8); MONO % 3.5 % (0.0-10.0); NEUT # 18.3 K/uL (1.8-7.0); NEUT % 89.3 % (50.0-75.0); NRBC % 1.3 % (0.0-0.0); RBC 3.42 Mil/uL (3.80-5.20); RED CELL DISTRIBUTION WIDTH 20.1 % (11.5-14.5); WHITE BLOOD COUNT 20.5 K/uL (4.8-10.8)
[2018-02-18 10:13] LABS: ALB/GLOB RATIO 1.1 (1.0-2.1); ALBUMIN 3.1 g/dL (3.5-5.0); CALCIUM 9.9 mg/dL (8.4-10.2)
[2018-02-18 10:29] LABS: TROPONIN I 0.188 ng/mL (0.00-0.120)
[2018-02-18] MEDS: Omega-3-Acid Ethyl Esters 1 GM Cap PO SCH (11:00)
[2018-02-18] MEDS: Potassium Chloride 20 mEq ER Tab PO SCH (11:00)
[2018-02-18] MEDS: Clindamycin 600mg/50ml NS 600 MG/50 ML BAG IVPB SCH ×2 (11:54→22:03)
--- NOTE | 2018-02-18 14:22 | CP.PCM.PN ---
Subjective - Date & Time of Evaluation Date of Evaluation: 02/18/18 Time of Evaluation: 11:00 - Subjective Subjective: F/U Respiratory Insufficiency. C/o of SOB on O2NC , earlier had [employer] for SOB and CP Objective - Vital Signs/Intake and Output Vital Signs (last 24 hours): Temp Pulse Resp BP Pulse Ox 97.5 F L 85 18 156/78 H 94 L 02/18/18 08:00 02/18/18 11:00 02/18/18 08:00 02/18/18 11:00 02/18/18 08:00 - Medications Medications: Current Medications Acetaminophen (Tylenol 325mg Tab) 650 mg PO Q6 PRN PRN Reason: Pain, Mild (1-3) Last Admin: 02/11/18 21:55 Dose: 650 mg Albuterol/Ipratropium (Duoneb 3 Mg/0.5 Mg (3 Ml) Ud) 3 ml INH RQ4 [facility] Last Admin: 02/18/18 12:29 Dose: 3 ml Atorvastatin Calcium (Lipitor) 40 mg PO DAILY [facility] Last Admin: 02/18/18 11:00 Dose: 40 mg Carvedilol (Coreg) 12.5 mg PO Q12 [facility] Last Admin: 02/09/18 09:27 Dose: Not Given Clopidogrel Bisulfate (Plavix) 75 mg PO DAILY [facility] Last Admin: 02/18/18 11:00 Dose: 75 mg Cyproheptadine HCl (Periactin) 4 mg PO HS [facility] Dextrose (Dextrose 50% Inj) 0 ml IV STAT PRN; Protocol PRN Reason: Hypoglycemia Protocol Dextrose (Glutose 15) 0 gm PO ONCE PRN; Protocol PRN Reason: Hypoglycemia Protocol Furosemide (Lasix) 40 mg IV BID [facility] Last Admin: 02/18/18 09:28 Dose: 40 mg Gabapentin (Neurontin) 300 mg PO DAILY [facility] Last Admin: 02/09/18 09:33 Dose: 300 mg Glucagon (Glucagen Diagnostic Kit) 0 mg IM STAT PRN; Protocol PRN Reason: Hypoglycemia Protocol Home Med (Icosapent Ethyl [Vascepa]) 1 gm PO DAILY [facility] Home Med (Linagliptin [Tradjenta]) 5 mg PO DAILY [facility] Home Med (Memantine Hcl [Namenda Xr]) 14 mg PO QPM [facility] Clindamycin Phosphate (Cleocin In Normal Saline) 600 mg in 50 mls @ 50 mls/hr IVPB Q12 [facility] PRN Reason: Protocol Last Admin: 02/18/18 11:54 Dose: 50 mls/hr Ceftaroline Fosamil 300 mg/ (Sodium Chloride) 100 mls @ 100 mls/hr IVPB Q12 [facility] PRN Reason: Protocol Ibuprofen (Motrin Tab) 400 mg PO Q6 PRN PRN Reason: Pain, moderate (4-7) Insulin Human Lispro (Humalog) 0 units SC ACHS [facility] PRN Reason: Protocol Lactobacillus Acidophilus (Bacid Acidophilus) 1 cap PO BID [facility] Last Admin: 02/17/18 18:12 Dose: 1 cap Losartan Potassium (Cozaar) 50 mg PO DAILY [facility] Last Admin: 02/18/18 11:00 Dose: 50 mg Memantine (Namenda) 5 mg PO BID [facility] Last Admin: 02/18/18 11:00 Dose: 5 mg Metformin HCl (Glucophage) 500 mg PO BIDWM [facility] Last Admin: 02/18/18 11:00 Dose: 500 mg Methylprednisolone (Solu-Medrol) 20 mg IVP BID [facility] Last Admin: 02/17/18 18:19 Dose: 20 mg Metolazone (Zaroxolyn) 2.5 mg PO DAILY [facility] Last Admin: 02/09/18 09:35 Dose: 2.5 mg [id number] Ethyl Esters (Lovaza) 1 gm PO DAILY [facility] Last Admin: 02/18/18 11:00 Dose: 1 gm Potassium Chloride (K-Dur 20 Meq Er Tab) 20 meq PO DAILY [facility] Last Admin: 02/18/18 11:00 Dose: 20 meq Rivaroxaban (Xarelto) 15 mg PO DAILY [facility] PRN Reason: Protocol Last Admin: 02/18/18 11:00 Dose: 15 mg Sitagliptin Phosphate (Januvia) 50 mg PO DAILY [facility] Last Admin: 02/18/18 11:00 Dose: 50 mg Spironolactone (Aldactone) 50 mg PO DAILY [facility] Last Admin: 02/09/18 09:23 Dose: 50 mg Valsartan (Diovan) 160 mg PO DAILY [facility] Last Admin: 02/09/18 09:29 Dose: Not Given - Labs Labs: 02/18/18 09:56 02/18/18 09:56 - Constitutional Appears: Chronically Ill - Head Exam Head Exam: NORMAL INSPECTION - Eye Exam Eye Exam: PERRL - ENT Exam ENT Exam: Normal Exam - Neck Exam Neck Exam: Normal Inspection - Respiratory Exam Respiratory Exam: Decreased Breath Sounds, Rhonchi, Wheezes - Cardiovascular Exam Cardiovascular Exam: REGULAR RHYTHM, Murmur - GI/Abdominal Exam GI & Abdominal Exam: Soft, Normal Bowel Sounds - Extremities Exam Extremities Exam: Pedal Edema (edema U/E , L/E) - Back Exam Back Exam: NORMAL INSPECTION - Neurological Exam Neurological Exam: Awake, CN II-XII Intact Additional comments: no focal motor , sensory , deficit , generalized weakness - Psychiatric Exam Psychiatric exam: Anxious - Skin Skin Exam: Warm Assessment and Plan (1) Acute respiratory insufficiency Status: Acute (2) Pneumonia Status: Acute (3) COPD exacerbation Status: Acute (4) CHF (congestive heart failure) Status: Acute (5) Troponin I above reference range Status: Acute - Assessment and Plan (Free Text) Plan: Transferred to Telemetry post [employer] , wbc 20.1 , Patient on Teflaro, Cleocin , DuoNeb , CT Chest worsening PNA , CHF diastolic , Trop I (+) , Cardiology on board.
[2018-02-18] MEDS: Insulin Lispro (humaLOG) 100 Units/ml Inj SC SCH ×2 (18:27→22:03)
[2018-02-19] MEDS: Albuterol-Ipratrop 3 mg / 0.5 (3 ml) UD INH SCH ×2 (04:50→07:57)
[2018-02-19] MEDS: Clindamycin 600mg/50ml NS 600 MG/50 ML BAG IVPB SCH (08:40)
[2018-02-19] MEDS: Insulin Lispro (humaLOG) 100 Units/ml Inj SC SCH (08:42)
[2018-02-19] MEDS: Omega-3-Acid Ethyl Esters 1 GM Cap PO SCH (08:43)
[2018-02-19] MEDS: Potassium Chloride 20 mEq ER Tab PO SCH (08:43)
[2018-02-19] MEDS: MethylPREDNISolone 40 mg Vial IVP SCH (08:47)
[2018-02-19] MEDS: Lactobacillus Acidophilus 500 MU Cap PO SCH (08:47)
[2018-02-19 09:02] VITALS: TEMP 96.5
[2018-02-19 10:11] LABS: ABG ALLEN TEST YES; ARTERIAL BLOOD GAS HCO3 25.3 mmol/L (21-28); ARTERIAL BLOOD GAS HEMOGLOBIN 9.7 g/dL (11.7-17.4); ARTERIAL BLOOD GAS O2 CAPACITY 13.2 mL/dL (16-24); ARTERIAL BLOOD GAS O2 SAT 98.4 % (95-98); ARTERIAL BLOOD GAS PCO2 35 mm/Hg (35-45); ARTERIAL BLOOD GAS PH 7.45 (7.35-7.45); ARTERIAL BLOOD GAS PO2 78 mm/Hg (80-100); ARTERIAL BLOOD GAS TCO2 25.4 mmol/L (22-28)
[2018-02-19] MEDS ORDERED: Sodium Chloride 0.9% 200 ML IV SCH (10:30)
--- NOTE | 2018-02-19 11:16 | PCM.RRT ---
<Fang Castañeda - Last Filed: 02/19/18 15:17> MACHINE SILVER STRIPPER Nurse Assessment - Situation MACHINE SILVER STRIPPER Responder Arrival Time: 09:26 Location: [address] [place] [address] Room Number: 668 MACHINE SILVER STRIPPER Reason for Call: Chest Pain MACHINE SILVER STRIPPER Called By: RN, Physician, Other Disciplines, Patient/Family Request - IV IV Inserted during MACHINE SILVER STRIPPER?: No - Respiratory Oxygen Delivery Method: Nasal Cannula Received Nebulizer Treatments: Yes Was the Patient Ventilated with Bag/Mask 100% O2?: No Secretions Suctioned?: No Was the Patient Intubated?: No Was the Patient Placed on a Ventilator?: No - Ventilator Settings FIO2 (% Oxygen): 50 - Medication Medications Administered During MACHINE SILVER STRIPPER: duoneb x2. lasix 20 mg - Diagnostic Test Ordered EKG: Yes Chest X-Ray: Yes CT Scan: No - Stat Labs Ordered MACHINE SILVER STRIPPER Stat Labs Ordered: CBC, BMP, PT/PTT, TROPONIN MACHINE SILVER STRIPPER Other Labs Ordered: BNP CPR started during MACHINE SILVER STRIPPER?: No - Vital Signs Vital Signs: Rapid Response Vital Sign Blood Pressure 156/78 Pulse Rate 85 Respiratory Rate 24 Temperature 98.2 F Oxygen Saturation 95 - Time MACHINE SILVER STRIPPER Ended Time MACHINE SILVER STRIPPER Ended: 04:43 - Vital Signs at end of MACHINE SILVER STRIPPER Vital Signs at end of MACHINE SILVER STRIPPER: Rapid Response End Vital Sign Blood Pressure 141/86 Pulse Rate 84 Respiratory Rate 24 Temperature 98.2 F O2 Sat by Pulse Oximetry 100 - Recommendations MACHINE SILVER STRIPPER Level of Care Recommendations: Remain in current setting I.Reason for MACHINE SILVER STRIPPER - A) Acute Change in Patient: (Select all that apply): Staff member or family is worried about patient Subjective: MACHINE SILVER STRIPPER was called for 82 y/o woman w/ pmh of NIDDM2, COPD (emphysema), diastolic CHF, CAD, pacemaker, and dementia for evaluation and treatment of melena and coffee ground hematemesis. Upon arrival, VS: 91/67 BP, 98% NC, HR 98, patient was vomiting coffee ground substances. Patient was started on 200ml NS, and Protonix IV started. Following labs ordered; Type and cross, CBC, CMP, Troponin , Blood Cx, EKG and BP medications were held due to hypotension. Patient was transferred to ICU for further management and evaluation. Case discussed with Dr. Presley - Respiratory Oxygen Delivery Method: Nasal Cannula @L/min Oxygen Flow Rate: 2 Plan - Assessment of Findings&Treatment Plan 82 y/o woman w/ pmh of NIDDM2, COPD (emphysema), diastolic CHF, CAD, pacemaker, and dementia for evaluation and treatment of melena and coffee ground hematemesis Hypotension - POssibly due to GI bleed, - Protonix IV - Type and cross - CBC/CMP - GI consult Respiratory discomfort - possiblly due to COPD, Pneumonia, and CHF Aspirator pneumonia, r/o sepsis - High lactate will follow up labs <FernandezGita - Last Filed: 02/19/18 16:23> MACHINE SILVER STRIPPER Nurse Assessment - Vital Signs Vital Signs: Rapid Response Vital Sign Blood Pressure 91/60 Pulse Rate 94 Respiratory Rate 20 Temperature 98.2 F Oxygen Saturation 95 - Vital Signs at end of MACHINE SILVER STRIPPER Vital Signs at end of MACHINE SILVER STRIPPER: Rapid Response End Vital Sign Blood Pressure 92/67 Pulse Rate 94 Respiratory Rate 16 Temperature 98.2 F O2 Sat by Pulse Oximetry 100 Attending/Attestation - Attestation Notes (Text): Responded to the MACHINE SILVER STRIPPER with the Residents. MACHINE SILVER STRIPPER was called bec of Hypotension, lethargy and Melena Pt seen and examined. Pt is awake and looks weak. She was also noted to be vomiting some brownish material ( not coffee ground) Per RN pt just had tarry stool Pt denies CP however complained of back pain BP 90 systolic, HR =95, saturation 96-07% on 2liters IVF hydration started, Fingerstick glucose : 184 IV Protonix given stat labs ordered - CBC, CMP, Type and Crossmatching Antihypertensive medication held Pt was immediately transferred to ICU- case discussed with Dr Robles Pt's PMD informed of event - case discussed Family notified of event- spoke with daughter 02/19/18 16:22
--- NOTE | 2018-02-19 12:57 | PCM.PROC ---
Procedures Attestation:: I certify that I have explained the specified Operation(s) or Procedure(s), risks, benefits and reasonable alternatives to the Patient and/or other person responsible. The opportunity was given to ask questions and all questions answered - Intubation Laryngoscope: Kiera ET Tube Size: 7.0 ET Tube Uncuffed: Yes ET Tube Secured at Depth: 22 cmms ET Tube Secured Locarion: Lips ET Tube Placement Confirmation: Visualized Passing Through Cords, Breath Sounds Equal Bilaterally, Confirmation w/Capnometry Patient Tolerated Procedure: Well Additional comments: cxr confirmed ETT placement 3 cms above ysabel
--- NOTE | 2018-02-19 13:53 | RAD ---
HISTORY: post intubation COMPARISON: February 18, 2018. FINDINGS: LUNGS: Improved aeration of the lungs. PLEURA: No significant pleural effusion identified, no pneumothorax apparent. CARDIOVASCULAR: No radiographic findings to suggest acute or significant cardiovascular disease. Position/ configuration of pacemaker device: Satisfactory. OSSEOUS STRUCTURES: No significant abnormalities. VISUALIZED UPPER ABDOMEN: Normal. OTHER FINDINGS: Endotracheal tube tip within 2 cm of the ysabel. Nasogastric tube coiled in the stomach. IMPRESSION: Endotracheal tube in satisfactory position. Nasogastric tube in satisfactory position.
[2018-02-19 15:18] VITALS: O2SAT 93
[2018-02-19 15:27] VITALS: BP 77/66; PULSE 61; RESP 17
[2018-02-19] MEDS ORDERED: DOPamine 400mg/250ml D5W 400 MG/250 ML BAG IV ONE (15:54)
--- NOTE | 2018-02-19 19:02 | CP.PCM.PN ---
Subjective - Date & Time of Evaluation Date of Evaluation: 02/19/18 Time of Evaluation: 09:00 Objective - Vital Signs/Intake and Output Vital Signs (last 24 hours): Temp Pulse Resp BP Pulse Ox 96.5 F L 61 17 77/66 L 93 L 02/19/18 08:00 02/19/18 11:28 02/19/18 11:28 02/19/18 11:28 02/19/18 10:42 - Labs Labs: 02/18/18 09:56 02/18/18 09:56
--- NOTE | 2018-02-19 20:03 | PN ---
DATE: 02/19/2018 CRITICAL CARE PROGRESS NOTE LOCATION: The patient in ICU, bed 425. The patient was seen and evaluated at the bedside. Past medical, surgical, and social history are reviewed and noted. Known to ICU from her previous admission. An 82-year-old female with a history of her diabetes mellitus type-2, diastolic heart failure, chronic obstructive pulmonary disease, admitted to hospital status post fall at home, noted hypotensive and with change in the mental status, responded to fluid challenge. As patient was initially noted to be hypotensive, was started on Levophed followed by milrinone drip for suspected cardiomyopathy. Milrinone was subsequently discontinued. Patient was transferred to telemetry and from there to med surgical floor. Patient had an RETAIL CUSTOMER SERVICE REPRESENTATIVE called in day before yesterday for chest pain, was transferred back to telemetry, status post RETAIL CUSTOMER SERVICE REPRESENTATIVE because of hypotension and noted to have melenic stool, transferred to ICU. In ICU, the patient was noted to be in labored breathing, requiring intubation and mechanical ventilation. After the intubation, code was called in, resuscitated back to sinus rhythm and blood pressure in the low 100. Patient had another episode, however, noted to be desaturated and hypotensive with no palpable pulse. Code was called in and resuscitative effort continued more than 20 minutes. Could not be resuscitated. Patient was pronounced at 12:10 p.m. Patient's son is at the bedside, informed. PMD is also aware of demise. Tavo Robles MD SE
--- NOTE | 2018-02-19 20:28 | CP.PCM.DIS ---
Provider - Provider Date of Admission: 02/08/18 10:37 Attending physician: Juan A Lawrence MD Consults: Dr. Martinez, Dr. Burrows, Dr. Jean, Dr. Nuñez, Time Spent in preparation of Discharge (in minutes): 30 Hospital Course - Lab Results Lab Results: Micro Results 02/12/18 18:40 Naris MRSA Culture (Admit) - Final MRSA NOT DETECTED 02/09/18 18:33 Urine,[place] Urine Culture - Final No Growth (<1,000 CFU/ML) 02/09/18 17:20 Naris MRSA Culture (Admit) - Final MRSA NOT DETECTED Most Recent Lab Values WBC 20.5 K/uL (4.8-10.8) H 02/18/18 09:56 RBC 3.42 Mil/uL (3.80-5.20) L 02/18/18 09:56 Hgb 10.1 g/dL (12.0-16.0) L 02/18/18 09:56 Hct 31.8 % (34.0-47.0) L 02/18/18 09:56 MCV 93.0 fl (81.0-99.0) 02/18/18 09:56 MCH 29.6 pg (27.0-31.0) 02/18/18 09:56 MCHC 31.9 g/dL (33.0-37.0) L 02/18/18 09:56 RDW 20.1 % (11.5-14.5) H 02/18/18 09:56 Plt Count 203 K/uL (130-400) 02/18/18 09:56 MPV 10.7 fl (7.2-11.7) 02/18/18 09:56 Neut % (Auto) 89.3 % (50.0-75.0) H 02/18/18 09:56 Lymph % (Auto) 7.0 % (20.0-40.0) L 02/18/18 09:56 [place] % (Auto) 3.5 % (0.0-10.0) 02/18/18 09:56 Eos % (Auto) 0.0 % (0.0-4.0) 02/18/18 09:56 Baso % (Auto) 0.2 % (0.0-2.0) 02/18/18 09:56 Neut # (Auto) 18.3 K/uL (1.8-7.0) H 02/18/18 09:56 Lymph # (Auto) 1.4 K/uL (1.0-4.3) 02/18/18 09:56 [place] # (Auto) 0.7 K/uL (0.0-0.8) 02/18/18 09:56 Eos # (Auto) 0.0 K/uL (0.0-0.7) 02/18/18 09:56 Baso # (Auto) 0.0 K/uL (0.0-0.2) 02/18/18 09:56 Neutrophils % (Manual) 94 % (42-75) H 02/17/18 04:38 Band Neutrophils % 2 % (0-2) 02/13/18 08:26 Lymphocytes % (Manual) 5 % (20-50) L 02/17/18 04:38 Monocytes % (Manual) 0 % (0-10) 02/17/18 04:38 Metamyelocytes % 1 % (0-0) H 02/17/18 04:38 Myelocytes % 1 % (0-0) H 02/08/18 05:55 Nucleated RBC % 2 % (0-0) H 02/13/18 08:26 Platelet Estimate Normal (NORMAL) 02/17/18 04:38 Large Platelets Present 02/16/18 11:37 Hypochromasia (manual) Slight 02/08/18 05:55 Poikilocytosis (manual Slight 02/17/18 04:38 Anisocytosis (manual) Slight 02/17/18 04:38 Ovalocytes Slight 02/17/18 04:38 Schistocytes Slight 02/08/18 05:55 D-Dimer, Quantitative 284 ng/mlDDU (0-230) H 02/15/18 14:29 pCO2 35 mm/Hg (35-45) 02/19/18 09:43 pO2 78 mm/Hg (80-100) L 02/19/18 09:43 HCO3 25.3 mmol/L (21-28) 02/19/18 09:43 ABG pH 7.45 (7.35-7.45) 02/19/18 09:43 ABG Total CO2 25.4 mmol/L (22-28) 02/19/18 09:43 ABG O2 Saturation 98.4 % (95-98) H 02/19/18 09:43 ABG O2 Content 13.0 ML/dL (15-23) L 02/19/18 09:43 ABG Base Excess 0.5 mmol/L (-2.0-3.0) 02/19/18 09:43 ABG Hemoglobin 9.7 g/dL (11.7-17.4) L 02/19/18 09:43 ABG Carboxyhemoglobin 2.2 % (0.5-1.5) H 02/19/18 09:43 POC ABG HHb (Measured) 1.5 % (0.0-5.0) 02/19/18 09:43 ABG Methemoglobin 1.4 % (0.0-3.0) 02/19/18 09:43 ABG O2 Capacity 13.2 mL/dL (16-24) L 02/19/18 09:43 Kermit Test Yes 02/19/18 09:43 ABG Potassium 5.4 mmol/L (3.6-5.2) H 02/08/18 10:13 VBG pH 7.31 (7.32-7.43) L 02/10/18 04:00 VBG pCO2 41 mmHg (40-60) 02/10/18 04:00 VBG HCO3 20.4 mmol/L 02/10/18 04:00 VBG Total CO2 21.9 mmol/L (22-28) L 02/10/18 04:00 VBG O2 Sat (Calc) 84.4 % (40-65) H 02/10/18 04:00 VBG Base Excess -5.3 mmol/L (0.0-2.0) L 02/10/18 04:00 VBG Potassium 3.9 mmol/L (3.6-5.2) 02/10/18 04:00 A-a O2 Difference 92.0 mm/Hg 02/19/18 09:43 Hgb O2 Saturation 94.9 % (95.0-98.0) L 02/19/18 09:43 Sodium 133.0 mmol/L (132-148) 02/10/18 04:00 Chloride 104.0 mmol/L (98-107) 02/10/18 04:00 Glucose 363 mg/dL (65-105) H 02/10/18 04:00 Lactate 1.2 mmol/L (0.7-2.1) 02/10/18 04:00 Liter Flow 2 02/14/18 11:29 Vent Mode Nc 02/14/18 11:29 Mechanical Rate 12 02/13/18 04:00 FiO2 30.0 % 02/19/18 09:43 Inspiratory BiPAP 10 02/13/18 04:00 Expiratory BiPAP 5 02/13/18 04:00 Blood Gas Comments 2l/m nc.abg was don 02/19/18 09:43 Crit Value Called To Margarita jefferson rn 02/19/18 09:43 Crit Value Called By 25 02/19/18 09:43 Crit Value Read Back Y 02/19/18 09:43 Blood Gas Notified Time 1010 02/19/18 09:43 Sodium 135 mmol/l (132-148) 02/18/18 09:56 Potassium 4.7 MMOL/L (3.6-5.0) 02/18/18 09:56 Chloride 98 mmol/L (98-107) 02/18/18 09:56 Carbon Dioxide 25 mmol/L (22-30) 02/18/18 09:56 Anion Gap 17 (10-20) 02/18/18 09:56 BUN 90 mg/dl (7-17) H 02/18/18 09:56 Creatinine 1.7 mg/dl (0.7-1.2) H 02/18/18 09:56 Est GFR ( Amer) 35 02/18/18 09:56 Est GFR (Non-Af Amer) 29 02/18/18 09:56 POC Glucose (mg/dL) 239 mg/dL (65-110) H 02/19/18 11:51 Random Glucose 187 mg/dL (65-105) H 02/18/18 09:56 Calcium 9.9 mg/dL (8.4-10.2) 02/18/18 09:56 Magnesium 1.6 MG/DL (1.6-2.3) 02/16/18 12:17 Total Bilirubin 0.9 mg/dl (0.2-1.3) 02/18/18 09:56 AST 32 U/L (14-36) 02/18/18 09:56 ALT 49 U/L (9-52) 02/18/18 09:56 Alkaline Phosphatase 88 U/L (38-126) 02/18/18 09:56 Troponin I 0.1740 ng/mL (0.00-0.120) H* 02/18/18 17:37 NT-Pro-B Natriuret Pep 29264 pg/ml (0-900) H 02/18/18 09:56 Total Protein 6.1 G/DL (6.3-8.2) L 02/18/18 09:56 Albumin 3.1 g/dL (3.5-5.0) L 02/18/18 09:56 Globulin 3.0 gm/dL (2.2-3.9) 02/18/18 09:56 Albumin/Globulin Ratio 1.1 (1.0-2.1) 02/18/18 09:56 Cortisol AM Sample 10.6 ug/dL (4.46-22.7) 02/11/18 04:20 Arterial Blood Potassium 5.4 mmol/L (3.6-5.2) H 02/08/18 10:13 Venous Blood Potassium 3.9 mmol/L (3.6-5.2) 02/10/18 04:00 Urine Color Yellow (YELLOW) 02/09/18 18:33 Urine Clarity Cloudy (Clear) 02/09/18 18:33 Urine pH 6.0 (5.0-8.0) 02/09/18 18:33 Ur Specific [place] 1.017 (1.003-1.030) 02/09/18 18:33 Urine Protein 30 mg/dL (NEGATIVE) 02/09/18 18:33 Urine Glucose (UA) Neg mg/dL (Normal) 02/09/18 18:33 Urine Ketones Negative mg/dL (NEGATIVE) 02/09/18 18:33 Urine Blood Small (NEGATIVE) 02/09/18 18:33 Urine Nitrate Negative (NEGATIVE) 02/09/18 18:33 Urine Bilirubin Negative (NEGATIVE) 02/09/18 18:33 Urine Urobilinogen 0.2-1.0 mg/dL (0.2-1.0) 02/09/18 18:33 Ur Leukocyte Esterase Large Artie/uL (Negative) 02/09/18 18:33 Urine RBC (Auto) 6 /hpf (0-3) H 02/09/18 18:33 Urine WBC Clumps (Auto) Few /hpf (NONE) H 02/09/18 18:33 Urine Microscopic WBC 68 /hpf (0-5) H 02/09/18 18:33 Ur Squamous Epith Cells < 1 /hpf (0-5) 02/09/18 18:33 Urine Bacteria Rare (<OCC) 02/09/18 18:33 Urine Chloride 16 mmol/L (32-290) L 02/09/18 18:33 Blood Type AB POSITIVE 02/09/18 13:40 Antibody Screen Negative 02/09/18 13:40 Crossmatch See Detail 02/09/18 13:40 BBK History Checked Patient has bt 02/09/18 13:40 - Hospital Course Hospital Course: 82 yr old F admitted s/p fall with significant PMHx of NIDDM type 2, COPD ( emphysema), diastolic CHF, CAD, pacemaker and dementia. During the course of this admission patient was found to have acute on chronic CHF exacerbation, pnuemonia, and episode of hypotension requiring central line placement and management in ICU. She was treated with IV antibiotics. CT chest showed bilateral mild-moderate pleural effusions. Patient had multiple episode of acute on chronic SOB requiring TREATER HELPER evaluation. Patient was examined at bedside today with Dr. Lawrence at 9am, stated she did not feel well at that time, was awake and alert, following commands. At 11am patient experienced non-bloody/non- bilious emesis and shortly after hypotension, lethargy and melena, an TREATER HELPER was called and patient was transferred to ICU for further management. Patients' medical condition proceeded to deteriorate, she experienced respiratory distress requiring intubation and mechanical ventilation. Patient then had PEA, ACLS was performed, ROSC was achieved. Patient coded a second time, ACLS was performed for over 20 minutes, ROSC was not achieved. Patient was pronounced at 12:10pm. Son was at bedside and daughter (designated decision maker) arrived after, family was informed. - Date & Time of H&P Date of H&P: 02/08/18 Time of H&P: 13:27 Discharge Exam - Head Exam Head Exam: absent: NORMAL INSPECTION - Eye Exam Eye Exam: absent: EOMI, PERRL Pupil Exam: Fixed, Miosis. absent: PERRL - ENT Exam ENT Exam: Mucous Membranes Moist - Neck Exam Additional comments: ETT in place - Respiratory Exam Respiratory Exam: absent: NORMAL BREATHING PATTERN (mechanically ventilated) - Cardiovascular Exam Cardiovascular Exam: absent: REGULAR RHYTHM, +S1, +S2 - GI/Abdominal Exam GI & Abdominal Exam: Soft. absent: Normal Bowel Sounds - Extremities Exam Extremities exam: pedal edema Additional comments: bilateral UE anasarca - Neurological Exam Additional comments: unresponsive - Skin Skin Exam: Diaphoretic, Dry Discharge Plan - Follow Up Plan Condition: Disposition: WITH WITHOUT AUTOPSY
--- NOTE | 2018-02-20 08:35 | PN ---
PROCEDURE DATE: CPR RESUSCITATION NOTE \Ms. De Jesus is an 82-year-old female with a history of diabetes mellitus type 2. 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 In ICU, the patient was noted to be in agonal breathing, intubated, placed on mechanical ventilation. Postprocedure chest x-ray confirmed the ETT placement. Post intubation, half an hour after the intubation, the patient was noted to desaturate and no palpable pulse. Code was called, resuscitated, back on the ventilator. Again, the patient developed noted desaturating, hypotensive and CPR was initiated. ACLS protocol continued for over 20 minutes. The patient remained in paced rhythm and no palpable pulse. No breathing effort. Pupils were noted to be dilated and fixed. A magnet was placed over the pacemaker and noted no spikes. The patient was pronounced at 12:10 p.m. Family at the bedside, informed her demise, PMD was also notified. Tavo Robles MD
--- NOTE | 2018-02-20 09:48 | CARD ---
APPROVED REPORT EKG Measurement Heart [id number] <Conclusion> Ventricular-paced rhythm Abnormal ECG
--- NOTE | 2018-02-20 09:48 | CARD ---
APPROVED REPORT EKG Measurement Heart [id number] DC 192P [id number] <Conclusion> Atrial-sensed ventricular-paced rhythm Abnormal ECG
== END 2018-02-19 15:29 | DRG 208 ==
LOC: H.ER 04:41 → H.ERHOLD 10:37 → H.TEL 15:26 → H.ICU/CCU 02-09 12:58 → H.MEDSURG1 02-12 14:39 → H.TEL 02-18 09:57 → H.ICU/CCU 02-19 10:40
PROVIDERS: ADMIT Family Medicine; ATTEND Family Medicine
PROC: 06HM33Z Insertion of Infusion Device into Right Femoral Vein, Percutaneous Approach (ICD-10-PCS; principal; 2018-02-09)
PROC: 5A1935Z Respiratory Ventilation, Less than 24 Consecutive Hours (ICD-10-PCS; 2018-02-19)
PROC: 0BH17EZ Insertion of Endotracheal Airway into Trachea, Via Natural or Artificial Opening (ICD-10-PCS; 2018-02-19)
PROC: 5A12012 Performance of Cardiac Output, Single, Manual (ICD-10-PCS; 2018-02-19)
DX: J18.9 Pneumonia, unspecified organism (principal); I50.33 Acute on chronic diastolic (congestive) heart failure; J96.00 Acute respiratory failure, unspecified whether with hypoxia or hypercapnia; I42.9 Cardiomyopathy, unspecified; J44.1 Chronic obstructive pulmonary disease with (acute) exacerbation; J44.0 Chronic obstructive pulmonary disease with (acute) lower respiratory infection; I48.92 Unspecified atrial flutter; K92.1 Melena; I11.0 Hypertensive heart disease with heart failure; Z86.73 Personal history of transient ischemic attack (TIA), and cerebral infarction without residual deficits; Z95.0 Presence of cardiac pacemaker; Z95.1 Presence of aortocoronary bypass graft; Z88.5 Allergy status to narcotic agent; D64.9 Anemia, unspecified; E87.5 Hyperkalemia; K75.89 Other specified inflammatory liver diseases; E78.00 Pure hypercholesterolemia, unspecified; I25.10 Atherosclerotic heart disease of native coronary artery without angina pectoris; K29.70 Gastritis, unspecified, without bleeding; G20 Parkinson's disease; F02.80 Dementia in other diseases classified elsewhere, unspecified severity, without behavioral disturbance, psychotic disturbance, mood disturbance, and anxiety; I48.0 Paroxysmal atrial fibrillation; Z79.01 Long term (current) use of anticoagulants; I48.2 Chronic atrial fibrillation; E11.9 Type 2 diabetes mellitus without complications; E78.5 Hyperlipidemia, unspecified; I95.9 Hypotension, unspecified; F41.9 Anxiety disorder, unspecified; M19.90 Unspecified osteoarthritis, unspecified site; I46.9 Cardiac arrest, cause unspecified; L89.152 Pressure ulcer of sacral region, stage 2